=== PATIENT | female | born 1940 | race Caucasian/White ===

== ENCOUNTER → 2017-10-31 10:21 | Outpatient (CLI) | payer MEDICARE, OTHER, SELFPAY ==
--- NOTE | 2017-10-31 10:23 | BI_ITS ---
MAMMOGRAPHY - BILATERAL SCREENING REASON FOR EXAM: Female, 77 years old. Routine annual screening examination. PERTINENT HISTORY: Remote right excisional breast biopsy. Past history of thyroid cancer. TECHNIQUE: Digital bilateral breast audi (3D mammographic acquisition) in the CC and MLO projections. 2-D mediolateral oblique (MLO) and craniocaudad (CC) views of both breasts were obtained. CAD: Full Field Digital Mammography with Computer Added Detection was performed. COMPARISON: Comparison is made with prior examination dated October 22, 2015 and October 14, 2014. FINDINGS: Breast Composition: The breasts are heterogeneously dense, which may obscure small masses. There are no dominant masses or suspicious calcifications. Stable appearance of the 7 mm x 7 mm well-defined nodule in the anterior superior lateral retroareolar region of the left breast. No other significant abnormalities are identified. There has been no significant change since the prior study. BI/SCREENING MAMM (CAD), BILAT IMPRESSION: Stable bilateral screening mammogram. Yearly follow-up mammogram recommended. (A) ASSESSMENT CATEGORY: BIRADS Category 2: Benign. A letter regarding these results will be sent to the patient by the facility within 30 days. Approximately 10% of breast cancers are not detected by mammography. A normal mammogram should not delay biopsy of a clinically suspicious abnormality. [id number] Electronically Signed: Yang Bolden MD at 11:40 EDT Tel [phone], Service support ,
== END ==
PROVIDERS: Family Provider Family Medicine; PCP Family Medicine; Visit Provider Family Medicine
DX: Z12.31 Encounter for screening mammogram for malignant neoplasm of breast (principal); Z85.850 Personal history of malignant neoplasm of thyroid
CPT/HCPCS: 77063; 77067

== ENCOUNTER → 2018-03-29 11:50 | Outpatient (CLI) | payer MEDICARE, OTHER, SELFPAY ==
[2018-03-29 16:12] LABS: Absolute Lymphocyte Count 1.33 X10^3/ul (0.83-4.51); Absolute Neutrophil Count 4.8 X10^3/uL (2.0-7.7); Basophil# 0.03 X10^3/uL; Basophil% 0.4 % (0-1); Eosinophil# 0.04 X10^3/uL; Eosinophils% 0.6 % (0-5); Hematocrit 38.3 % (37-47); Hemoglobin 12.4 g/dl (12.0-15.0); Lymphocyte # 1.33 X10^3/ul (4.0); Lymphocyte % 19.3 % (19-41); Mean Corp Hgb Conc 32.4 g/gl (32-36); Mean Corpuscular Hgb 31.7 pg (27.0-32.0); Mean Platelet Vol. 12.5 fl (6.2-12.0); Monocyte# 0.69 X10^3/uL; Neutrophil # 4.78 X10^3/uL (2.7-7.7); Neutrophil % 69.4 % (47-70); Platelet Count 166 K/mm3 (150-450); RBC Distribution Width CV 12.6 % (11.6-14.6); RBC Distribution Width SD 44.5 fl (35.1-43.9); Red Blood Count 3.91 M/mm3 (4.2-5.4); White Blood Count 6.9 K/mm3 (4.4-11.0)
[2018-03-29 16:22] LABS: AST(SGOT) 18 U/L (15-37); Alanine Aminotransfer ALT/SGPT 19 U/L (13-56); Albumin, Serum 3.7 g/dL (3.2-5.0); Alkaline Phosphatase 57 U/L (45-117); Anion Gap 9 (5-15); BUN 31 mg/dL (7-18); BUN/Creat Ratio 31.5 RATIO (10-20); Calcium,Total 9.1 mg/dL (8.5-10.1); Chloride 106 mmol/L (98-107); Creatinine, Serum 0.98 mg/dL (0.55-1.02); EST Glomerular Filtration Rate 58 mL/min (>60); Est Glom Filt Rate - Afr Amer 71 mL/min (>60); Globulin 3.6 g/dL (2.2-4.2); Glucose 77 mg/dL (74-106); Potassium 4.5 mmol/L (3.5-5.1); Protein, Total 7.3 g/dL (6.4-8.2); Sodium Level 142 mmol/L (136-145); T3 Total - Triiodothyronine 0.76 ng/mL (0.6-1.81); T4 Free Direct 1.37 ng/dL (0.76-1.46); Thyroid Stim Hormone (TSH) 0.19 uIU/mL (0.358-3.74); Vitamin B12 328 pg/mL (211-911)
[2018-03-29 16:24] LABS: POSITIVE COUNT NO; POSITIVE DIFFERENTIAL NO; POSITIVE MORPHOLOGY NO
== END ==
PROVIDERS: Family Provider Family Medicine; PCP Family Medicine; Visit Provider Family Medicine
DX: E03.9 Hypothyroidism, unspecified (principal); E53.8 Deficiency of other specified B group vitamins; R53.83 Other fatigue
CPT/HCPCS: 36415; 80053; 82607; 84439; 84443; 84480; 85025

== ENCOUNTER → 2018-03-30 12:07 | Outpatient (CLI) | payer MEDICARE, OTHER, SELFPAY | PROVIDERS: Family Provider Family Medicine; PCP Family Medicine; Visit Provider Family Medicine | DX: M54.5 Low back pain (principal) | CPT/HCPCS: 72110 ==

== ENCOUNTER → 2018-07-21 14:34 | Outpatient (CLI) | payer MEDICARE, OTHER, SELFPAY ==
[2018-07-21 16:01] LABS: Free T3 2.3 pg/mL (2.18-3.98); T4 Total, Thyroxin 10.2 ug/dL (4.8-13.9); Thyroid Stim Hormone (TSH) 0.76 uIU/mL (0.358-3.74)
== END ==
PROVIDERS: Family Provider Family Medicine; PCP Family Medicine; Visit Provider Family Medicine
DX: E03.9 Hypothyroidism, unspecified (principal)
CPT/HCPCS: 36415; 84436; 84443; 84481

== ENCOUNTER 2018-08-08 20:55 | Inpatient (IN) | payer MEDICARE, OTHER, SELFPAY ==
[2018-08-08 20:56] VITALS: BP 147/90; PULSE 73; RESP 14; TEMP 36.3; O2SAT 96; BMI 21.9
--- NOTE | 2018-08-08 22:16 | CT_ITS ---
STUDY: CT ABDOMEN AND PELVIS WITH CONTRAST REASON FOR EXAM: Female, 77 years old. Abdominal pain and nausea. History of thyroid cancer with thyroidectomy. Hysterectomy. RADIATION DOSAGE (If Supplied By Facility): CTDIvol = ( 11.94 ) mGy, DLP = ( 493.06 ) mGycm TECHNIQUE: Transaxial images were obtained from the dome of the diaphragm to the symphysis pubis without oral contrast. 100ML ml of Isovue 300 contrast was administered. Sagittal and coronal images were reconstructed. Individualized dose optimization techniques were used for this CT. COMPARISON: None. FINDINGS: Lung bases are clear. Visualized heart is normal. The liver is unremarkable. The gallbladder is unremarkable. The spleen and pancreas are unremarkable. The adrenal glands are normal. The kidneys are unremarkable. No stones or hydronephrosis. The aorta is normal in caliber. The IVC is moderately flattened, suggesting hypovolemia. There is good portal and systemic venous opacification, with no demonstrated thrombosis. There is mild free fluid in the abdomen and pelvis. There are multiple loops of mildly distended, fluid-filled small bowel in the mid ileum. There is moderate to marked wall thickening of several loops of the mid to distal ileum with gradual caliber transition identified in these abnormal segments. There is moderate associated mesenteric edema in this region. Differential considerations include: Ischemia, submucosal hemorrhage, infection, and Crohn's disease. There is no evidence of closed loop obstruction. The colon is normal in caliber. The appendix is normal. Stool burden is moderate. Normal appendix. Urinary bladder is unremarkable. Normal abdominal wall. Normal osseous structures. CT/Abdomen/Pelvis W IV Cont ONLY IMPRESSION: Thick-walled mid to distal ileum with low-grade partial obstruction. Differential considerations include ischemia, hemorrhage, and infection. Mild free fluid. Electronically Signed: Angie Mata MD at 0:02 EST Tel , Service support ,
--- NOTE | 2018-08-08 22:47 | ED.VISSUMM ---
- ER Visit Summary Date of Service: 08/08/18 Chief Complaint: Abdominal pain History of Present Illness: The patient is a 77 F who states that 1900 hrs. tonight she developed abdominal pain. She states that indigestion. However it is not reflux into her chest. She describes the pain as more diffuse and wrapping to the sides. She states that she feels very gassy. At one point tonight she had very sweaty and weak with the nausea. Her symptoms seem to improve when she got to the emergency room. She notes that she ate dinner around 1800 hrs. this consisted of roast beef potatoes and carrots. Family had the same. Patient has had thyroidectomy hysterectomy and pelvic floor reconstruction. Physical Examination: Afebrile vital signs are stable Gen: Well-nourished well-developed Head: Normocephalic atraumatic Eyes: Perrl EOMI ENT: TMs clear no rhinorrhea moist mucous membranes Neck: Supple no lymphadenopathy no JVD nontender CVS: Regular rate rhythm no murmurs normal S1-S2 Respiratory: No distress clear to auscultation bilaterally chest nontender Abdomen: Soft tender to palpation mildly diffusely without guarding or rebound nondistended normal bowel sounds no masses Back: Nontender Extremity: Nontender no edema Skin: Normal color no rash Neuro: alert orientated ?3 CN II-XII intact normal strength sensation reflexes gait cerebellar Psych: Normal affect normal mood Test Results: White count is 13. Creatinine 1.28. Lactic acid is 1 CT the abdomen pelvis is very worrisome. There is significant thickening of the ileum with mesenteric edema. Appears to be partial small bowel obstruction. Emergency Department Course and Treatment: An NG tube was placed and the patient received Zosyn and IV fluids. from general surgery and Dr. Sierra from internal medicine were consulted. They will be in the department to evaluate the patient. Plan is admission Impression: 1. Partial small bowel obstruction 2. Mesenteric edema This note was generated with [employer] dictation software. It may contain incorrect words, spelling, and punctuation that were not noted in review of the chart prior to signing ED Disposition - Plan for ED Patient: Chief Complaint: Abd Pain
[2018-08-08 22:50] LABS: Absolute Lymphocyte Count 2.01 X10^3/ul (0.83-4.51); Absolute Neutrophil Count 10.1 X10^3/uL (2.0-7.7); Basophil# 0.04 X10^3/uL; Basophil% 0.3 % (0-1); Eosinophil# 0.09 X10^3/uL; Eosinophils% 0.7 % (0-5); Hematocrit 43.6 % (37-47); Lymphocyte # 2.01 X10^3/ul (4.0); Lymphocyte % 15.5 % (19-41); Mean Corp Hgb Conc 32.1 g/gl (32-36); Mean Corpuscular Hgb 31.4 pg (27.0-32.0); Mean Corpuscular Volume 97.8 fL (81-99); Mean Platelet Vol. 12.7 fl (6.2-12.0); Monocyte# 0.72 X10^3/uL; Monocyte% 5.5 % (0-10); Neutrophil % 77.8 % (47-70); Platelet Count 171 K/mm3 (150-450); RBC Distribution Width CV 13.2 % (11.6-14.6); RBC Distribution Width SD 46.2 fl (35.1-43.9); Red Blood Count 4.46 M/mm3 (4.2-5.4)
[2018-08-08 22:51] LABS: POSITIVE COUNT NO; POSITIVE DIFFERENTIAL NO; POSITIVE MORPHOLOGY NO
[2018-08-08 23:03] LABS: AST(SGOT) 17 U/L (15-37); Alanine Aminotransfer ALT/SGPT 16 U/L (13-56); Albumin, Serum 3.8 g/dL (3.2-5.0); Alkaline Phosphatase 68 U/L (45-117); Anion Gap 8 (5-15); BUN 23 mg/dL (7-18); Chloride 102 mmol/L (98-107); Creatinine, Serum 1.28 mg/dL (0.55-1.02); EST Glomerular Filtration Rate 43 mL/min (>60); Est Glom Filt Rate - Afr Amer 52 mL/min (>60); Estimated Creatinine Clearance 35.55 ml/min; Globulin 3.9 g/dL (2.2-4.2); Glucose 114 mg/dL (74-106); Lipase 110 U/L (73-393); Protein, Total 7.7 g/dL (6.4-8.2); Sodium Level 138 mmol/L (136-145)
[2018-08-08] MEDS: 0.9% Normal Saline 1,000 ML 150 ML IV (23:48)
--- NOTE | 2018-08-09 00:25 | PCM.HP.STD ---
History of Present Illness Date of Admission: 08/09/18 Chief Complaint: Abdominal pain Patient Problem List: Acute Presentation: Partial SBO with Possible Colitis Renal insufficiency Chronic Problem List: Hypertension Anxiety and Depression History of Thyroid CA s/p resection, resulting Hypothyroidism GERD The patient is a 77 y/o F w/ PMHx: History of Thyroid CA s/p resection, HTN, Anxiety and Depression, GERD who presents to the [facility] ED on 08/09/18 with history of onset generalized abdominal discomfort and bloating sensation with noted dull throbbing ache to the bilateral upper quadrant when she points to her abdomen on examination with nausea without emesis with last normal bowel movement the evening prior to presentation. She notes that onset was following intake of dinner which included roast beef and carrots with initial sensation of increased indigestion progressively worsening. Patient rates the discomfort upon initial onset 10 out of 10. In the ED workup included T 98.5, heart rate 85, BP initially 147/90, respiratory rate 14, 96% on room air, CBC with WBC 13, hemoglobin 14, platelet 171 with left shift, CMP with BUN/creatinine 23/1.28, glucose 114, lactic acid 1.0, hepatic profile unremarkable, lipase 110, CT A/P w/ thick-walled mid to distal ileum with low-grade partial obstruction, mild free fluid. In the ED NG tube placed. 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 General surgery consulted and did evaluate the patient while she was in the emergency room. Past Medical History Allergies No Known Allergies Allergy (Verified 08/08/18 20:58) Home Medications: Ambulatory Orders Medication Instructions Recorded Calcium (Elemental) [Os-Ousmane 500] 500 mg PO DAILY@0800 08/16/13 Duloxetine Hcl [Cymbalta] 20 mg PO BID 08/16/13 Levothyroxine [Synthroid] 88 mcg PO DAILY 08/16/13 Lisinopril [Zestril] 20 mg PO BID 08/16/13 Vitamin D 08/16/13 Cetirizine HCl [Zyrtec] 10 mg PO DAILY #14 tablet 09/15/14 Triamcinolone Acetonide [Nasacort 2 spray NASAL DAILY 09/15/14 Aq Nasal [place]] Omeprazole 20 mg PO DAILY 08/08/18 Surgical History: - - Hysterectomy with pelvic floor reconstructive surgery, thyroid resection, cataract surgery. 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 Denies: Chills, Fever, Weight Change HEENT: Denies: Head Aches, Sinus Congestion, Sinus Drainage Cardiovascular: Denies: Chest Pain, Palpitations Respiratory: Denies: Cough, Shortness of breath at rest, Sputum production Gastrointestinal: Reports: Abdominal Pain, Dyspepsia, Nausea. Denies: Vomiting Genitourinary: Denies: Dysuria Musculoskeletal: Denies: Joint Pain, Joint Tenderness Skin: Denies: Rash, Wounds Neurological: Denies: Numbness, Tingling, Focal weakness Psychiatric: Reports: Anxiety, Depression. Denies: Homicidal Ideations, Suicidal Ideations Hematologic/ Lymphatic: Denies: Easy Bruising, Easy Bleeding VTE Information - Inpt Only VTE Present on Admission: No VTE Mechan Device Prophylaxis: SCD's VTE Pharm Prophylaxis ordered?: Yes Subjective: Seated upright in the ED bed, fatigued appearance, initially laying w/ cloth over her eyes. Objective: Physical Examination: General: awake, alert, oriented x 3 and cooperative, seated upright in the ED bed in no apparent distress, fatigued appearance. Skin: normal color, turgor, no icterus, cyanosis. HEENT: AT/NC, EOMI, PERRLA, dry MM, no carotid bruits or JVD noted. Lungs: CTA bilaterally, moderate effort, mild decrease BL bases, no rales, ronchi or wheezing. Heart: Regular rate and rhythm; no gallop, rub audible. Abdomen: soft, mild generalized TTP, no rebound or guarding, hyper pitched BS, mildly to moderately distended, no HSM. Extremities: no cyanosis, clubbing, or edema. Neurological: patient awake, alert, oriented x 3; cognitive function intact; pupils equally reactive to light and accomodation; cranial nerves II-XII grossly normal, moving all 4 extremities, no focal deficits, strength moderately to severely globally decreased secondary to acute presentation. Psychiatric: affect appears fatigued, no acute evidence of depressive or anxiety feelings. - Physical Exam Vital Signs Temp Pulse Resp BP Pulse Ox 97.3 F L 73 14 147/90 H 96 08/08/18 20:56 08/08/18 20:56 08/08/18 20:56 08/08/18 20:56 08/08/18 20:56 Oxygen Delivery Method Room Air Weight: 136 lb Body Mass Index (BMI) 21.9 Laboratory Tests Past 24 Hrs 08/08/18 08/08/18 08/09/18 22:05 22:05 00:17 WBC 13.0 H RBC 4.46 Hgb 14.0 Hct 43.6 MCV 97.8 MCH 31.4 MCHC 32.1 RDW 13.2 RDW Differential 46.2 H Plt Count 171 MPV 12.7 H Immature Gran % (Auto) 0.200 Neut % (Auto) 77.8 H Lymph % (Auto) 15.5 L [place] % (Auto) 5.5 Eos % (Auto) 0.7 Baso % (Auto) 0.3 Absolute Neuts (auto) 10.1 H Absolute Lymphs (auto) 2.01 Total Counted Not Reportable Sodium 138 Potassium 4.0 Chloride 102 Carbon Dioxide 28.0 Anion Gap 8 BUN 23 H Creatinine 1.28 H Estim Creat Clear Calc 35.55 Est GFR (MDRD) Af Amer 52 L Est GFR (MDRD) Non-Af 43 L BUN/Creatinine Ratio 18.0 Glucose 114 H Lactic Acid Pending Calcium 9.0 Total Bilirubin 0.40 AST 17 ALT 16 Alkaline Phosphatase 68 Total Protein 7.7 Albumin 3.8 Globulin 3.9 Albumin/Globulin Ratio 1.0 Lipase 110 Assessment/Plan The patient is a 77 y/o F w/ PMHx: History of Thyroid CA s/p resection, HTN, Anxiety and Depression, GERD who presents to the [facility] ED on 08/09/18 with history of onset generalized abdominal discomfort and bloating sensation with noted dull throbbing ache to the bilateral upper quadrant when she points to her abdomen on examination with nausea without emesis with last normal bowel movement the evening prior to presentation. (1) Abdominal pain, nausea w/ ? Partial SBO w/ possible concurrent Colitis: ED workup included T 98.5, heart rate 85, BP initially 147/90, respiratory rate 14, 96% on room air, CBC with WBC 13, hemoglobin 14, platelet 171 with left shift, CMP with BUN/creatinine 23/1.28, glucose 114, lactic acid 1.0, hepatic profile unremarkable, lipase 110, CT A/P w/ thick-walled mid to distal ileum with low-grade partial obstruction, mild free fluid. Will admit to [facility], maintain on IVFs, continue NGT to suction, strict I&Os, IV pain/anti-emetics PRN, serial KUB as needed to monitor bowel function, PPI IV, maintain NPO on bowel rest. General surgery consulted and following. (2) Renal Insufficiency (Not [place]): Admission BUN/Cr 23/1.28, baseline Cr noted 0.9-1.0, likely secondary to mild to moderate dehydration with acute presentation #1, hydrating, repeat BMP in AM. (3) Hypertension: Holding oral regimen with NG tube status, PRN IV hydralazine in interim. (4) Hypothyroidism: History of thyroid cancer status post resection. Holding home Synthroid regimen secondary to n.p.o. status with NG tube, restart once clinically appropriate. (5) Anxiety and depression: Holding home Cymbalta regimen, restart once clinically appropriate. (6) GERD: IV PPI. (7) DVT prophylaxis: SCDs, heparin. Code Visit Inpatient E&M: 67508 Init Hosp L3
[2018-08-09 00:35] VITALS: PULSE 83; RESP 18
[2018-08-09] MEDS: Lidocaine 4% 5 ML Ampul 2 ML INHALATION (00:35)
[2018-08-09 01:37] VITALS: BP 173/88; PULSE 85; RESP 16; RESP 17; TEMP 36.9; O2SAT 95
--- NOTE | 2018-08-09 01:37 | PCM.CONS.GEN ---
Problem List (1) Enteritis Status: Acute Reason for Consult Date of Consultation: 08/09/18 Reason for Consultation: Abdominal pain History of Present Illness: The patient is a 77 year old F who presented with diffuse abdominal pain. She says that the pain started approximately 7 PM this evening. She says she has been passing a lot of gas and had a bowel movement this evening. She said the pain was in her lower abdomen and it was coming and going. She says it has now improved. She had nausea but no vomiting. The nausea has subsided. Nausea at this time. She says her pain has improved. She has never had any issues like this in the past. She has no history of Crohn's disease or inflammatory bowel disease. She has never had any bloody diarrhea. She has chronic constipation. She is not having any fevers or chills. Past Medical History Allergies No Known Allergies Allergy (Verified 08/08/18 20:58) Home Medications: Ambulatory Orders Medication Instructions Recorded Calcium (Elemental) [Os-Ousmane 500] 500 mg PO DAILY@0800 08/16/13 Duloxetine Hcl [Cymbalta] 20 mg PO BID 08/16/13 Levothyroxine [Synthroid] 88 mcg PO DAILY 08/16/13 Lisinopril [Zestril] 20 mg PO BID 08/16/13 Vitamin D 08/16/13 Cetirizine HCl [Zyrtec] 10 mg PO DAILY #14 tablet 09/15/14 Triamcinolone Acetonide [Nasacort 2 spray NASAL DAILY 09/15/14 Aq Nasal [place]] Omeprazole 20 mg PO DAILY 08/08/18 Surgical History: hysterectomy, - - Pelvic floor reconstruction Smoking Status: Never smoker Alcohol: None - *Family History Maternal History Items: No pertinent history Review of Systems Constitutional: Denies: Anorexia, Fever HEENT: Denies: Difficulty Swallowing Cardiovascular: Denies: Chest Pain Respiratory: Denies: Cough, Shortness of Breath Gastrointestinal: Reports: Abdominal Pain, Constipation. Denies: Diarrhea, Hematemesis, Hematochezia, Nausea, Melena, Vomiting Genitourinary: Denies: Dysuria Skin: Denies: Jaundice Neurological: Denies: Balance problems Psychiatric: Denies: Anxiety Hematologic/ Lymphatic: Denies: Adenopathy Patient Problems: Active and Suspected Problems Enteritis (Acute) - Physical Exam General: Alert, Oriented x3, Cooperative, No apparent distress HEENT: Atraumatic, PERRLA, EOMI, Normocephalic Oral: Moist Mucosa Neck: Supple Lungs: Normal air movement Cardiovascular: Regular rate, Regular Rhythm Abdomen: Soft, Non-Distended, Passing Flatus, Tender - Mild tenderness in the lower abdomen. No guarding or rebound. Extremities: No clubbing Skin: No rashes Musculoskeletal: No Muscle Wasting Neurological: Cranial nerves II-XII grossly intact Psych/Mental Status: Normal Affect, Appropriate Vital Signs Temp Pulse Resp BP Pulse Ox 97.3 F L 83 18 147/90 H 96 08/08/18 20:56 08/09/18 00:35 08/09/18 00:35 08/08/18 20:56 08/08/18 20:56 Oxygen Delivery Method Room Air Weight: 136 lb Body Mass Index (BMI) 21.9 Laboratory Tests Past 24 Hrs 08/08/18 08/08/18 08/09/18 22:05 22:05 00:17 WBC 13.0 H RBC 4.46 Hgb 14.0 Hct 43.6 MCV 97.8 MCH 31.4 MCHC 32.1 RDW 13.2 RDW Differential 46.2 H Plt Count 171 MPV 12.7 H Immature Gran % (Auto) 0.200 Neut % (Auto) 77.8 H Lymph % (Auto) 15.5 L [place] % (Auto) 5.5 Eos % (Auto) 0.7 Baso % (Auto) 0.3 Absolute Neuts (auto) 10.1 H Absolute Lymphs (auto) 2.01 Total Counted Not Reportable Sodium 138 Potassium 4.0 Chloride 102 Carbon Dioxide 28.0 Anion Gap 8 BUN 23 H Creatinine 1.28 H Estim Creat Clear Calc 35.55 Est GFR (MDRD) Af Amer 52 L Est GFR (MDRD) Non-Af 43 L BUN/Creatinine Ratio 18.0 Glucose 114 H Lactic Acid 1.0 Calcium 9.0 Total Bilirubin 0.40 AST 17 ALT 16 Alkaline Phosphatase 68 Total Protein 7.7 Albumin 3.8 Globulin 3.9 Albumin/Globulin Ratio 1.0 Lipase 110 Clinical Impression(s) from Imaging Studies Abdomen/Pelvis CT 08/08/18 22:16 IMPRESSION: Thick-walled mid to distal ileum with low-grade partial obstruction. Differential considerations include ischemia, hemorrhage, and infection. Mild free fluid. Electronically Signed: Angie Mata MD at 0:02 EST Tel , Service support , Assessment/Plan All Active Problems Enteritis (Acute) 77-year-old female with small bowel thickening 1. The patient presents with lower abdominal pain. Her white count is slightly elevated with left shift. Her creatinine is slightly elevated as well. Her lactate is normal. CT scan shows thickening of the small bowel and small bowel mesentery. She does not have history of A. fib or any atherosclerotic disease. She has not been having any bloody diarrhea or any diarrhea to speak of. The patient's vitals are stable at this time and she does not have any peritoneal signs on physical exam. 2. Her CT scan is worrisome but her physical exam does not appear to warrant surgery at this time. At this time her vitals are stable and her lactate is normal. I will recheck labs in the morning. If her physical exam worsens at all I would probably recommend exploratory surgery. At this time I will continue to observe her and give her IV fluids and keep her n.p.o. and start antibiotics. I will check ESR and blood cultures. 3. At this time the differential would include infectious versus ischemic etiology. Inflammatory bowel disease would also be possible. If her clinical picture worsens at all I would have little hesitation to take her to surgery to explore her abdomen. At this time she is not have any peritoneal signs or vital sign changes. Lorne Moser MD Pager: [facility] [address] [place] [address], [address] [place] [address] Office:
--- NOTE | 2018-08-09 01:43 | CON.PCM_ITS ---
Problem List (1) Enteritis Status: Acute Reason for Consult Date of Consultation: 08/09/18 Reason for Consultation: Abdominal pain History of Present Illness: The patient is a 77 year old F who presented with diffuse abdominal pain. She says that the pain started approximately 7 PM this evening. She says she has been passing a lot of gas and had a bowel movement this evening. She said the pain was in her lower abdomen and it was coming and going. She says it has now improved. She had nausea but no vomiting. The nausea has subsided. Nausea at this time. She says her pain has improved. She has never had any issues like this in the past. She has no history of Crohn's disease or inflammatory bowel disease. She has never had any bloody diarrhea. She has chronic constipation. She is not having any fevers or chills. Past Medical History Allergies No Known Allergies Allergy (Verified 08/08/18 20:58) Home Medications: Ambulatory Orders Medication Instructions Recorded Calcium (Elemental) [Os-Ousmane 500] 500 mg PO DAILY@0800 08/16/13 Duloxetine Hcl [Cymbalta] 20 mg PO BID 08/16/13 Levothyroxine [Synthroid] 88 mcg PO DAILY 08/16/13 Lisinopril [Zestril] 20 mg PO BID 08/16/13 Vitamin D 08/16/13 Cetirizine HCl [Zyrtec] 10 mg PO DAILY #14 tablet 09/15/14 Triamcinolone Acetonide [Nasacort 2 spray NASAL DAILY 09/15/14 Aq Nasal [place]] Omeprazole 20 mg PO DAILY 08/08/18 Surgical History: hysterectomy, - - Pelvic floor reconstruction Smoking Status: Never smoker Alcohol: None - *Family History Maternal History Items: No pertinent history Review of Systems Constitutional: Denies: Anorexia, Fever HEENT: Denies: Difficulty Swallowing Cardiovascular: Denies: Chest Pain Respiratory: Denies: Cough, Shortness of Breath Gastrointestinal: Reports: Abdominal Pain, Constipation. Denies: Diarrhea, Hematemesis, Hematochezia, Nausea, Melena, Vomiting Genitourinary: Denies: Dysuria Skin: Denies: Jaundice Neurological: Denies: Balance problems Psychiatric: Denies: Anxiety Hematologic/ Lymphatic: Denies: Adenopathy Patient Problems: Active and Suspected Problems Enteritis (Acute) - Physical Exam General: Alert, Oriented x3, Cooperative, No apparent distress HEENT: Atraumatic, PERRLA, EOMI, Normocephalic Oral: Moist Mucosa Neck: Supple Lungs: Normal air movement Cardiovascular: Regular rate, Regular Rhythm Abdomen: Soft, Non-Distended, Passing Flatus, Tender - Mild tenderness in the lower abdomen. No guarding or rebound. Extremities: No clubbing Skin: No rashes Musculoskeletal: No Muscle Wasting Neurological: Cranial nerves II-XII grossly intact Psych/Mental Status: Normal Affect, Appropriate Vital Signs Temp Pulse Resp BP Pulse Ox 97.3 F L 83 18 147/90 H 96 08/08/18 20:56 08/09/18 00:35 08/09/18 00:35 08/08/18 20:56 08/08/18 20:56 Oxygen Delivery Method Room Air Weight: 136 lb Body Mass Index (BMI) 21.9 Laboratory Tests Past 24 Hrs 08/08/18 08/08/18 08/09/18 22:05 22:05 00:17 WBC 13.0 H RBC 4.46 Hgb 14.0 Hct 43.6 MCV 97.8 MCH 31.4 MCHC 32.1 RDW 13.2 RDW Differential 46.2 H Plt Count 171 MPV 12.7 H Immature Gran % (Auto) 0.200 Neut % (Auto) 77.8 H Lymph % (Auto) 15.5 L [place] % (Auto) 5.5 Eos % (Auto) 0.7 Baso % (Auto) 0.3 Absolute Neuts (auto) 10.1 H Absolute Lymphs (auto) 2.01 Total Counted Not Reportable Sodium 138 Potassium 4.0 Chloride 102 Carbon Dioxide 28.0 Anion Gap 8 BUN 23 H Creatinine 1.28 H Estim Creat Clear Calc 35.55 Est GFR (MDRD) Af Amer 52 L Est GFR (MDRD) Non-Af 43 L BUN/Creatinine Ratio 18.0 Glucose 114 H Lactic Acid 1.0 Calcium 9.0 Total Bilirubin 0.40 AST 17 ALT 16 Alkaline Phosphatase 68 Total Protein 7.7 Albumin 3.8 Globulin 3.9 Albumin/Globulin Ratio 1.0 Lipase 110 Clinical Impression(s) from Imaging Studies Abdomen/Pelvis CT 08/08/18 22:16 IMPRESSION: Thick-walled mid to distal ileum with low-grade partial obstruction. Differential considerations include ischemia, hemorrhage, and infection. Mild free fluid. Electronically Signed: Angie Mata MD at 0:02 EST Tel , Service support , Assessment/Plan All Active Problems Enteritis (Acute) 77-year-old female with small bowel thickening 1. The patient presents with lower abdominal pain. Her white count is slightly elevated with left shift. Her creatinine is slightly elevated as well. Her lactate is normal. CT scan shows thickening of the small bowel and small bowel mesentery. She does not have history of A. fib or any atherosclerotic disease. She has not been having any bloody diarrhea or any diarrhea to speak of. The patient's vitals are stable at this time and she does not have any peritoneal signs on physical exam. 2. Her CT scan is worrisome but her physical exam does not appear to warrant surgery at this time. At this time her vitals are stable and her lactate is normal. I will recheck labs in the morning. If her physical exam worsens at all I would probably recommend exploratory surgery. At this time I will continue to observe her and give her IV fluids and keep her n.p.o. and start antibiotics. I will check ESR and blood cultures. 3. At this time the differential would include infectious versus ischemic etiology. Inflammatory bowel disease would also be possible. If her clinical picture worsens at all I would have little hesitation to take her to surgery to explore her abdomen. At this time she is not have any peritoneal signs or vital sign changes. Lorne Moser MD Pager: [facility] [address] [place] [address], [address] [place] [address] Office:
[2018-08-09 01:57] VITALS: BP 137/86; PULSE 75; RESP 16; TEMP 36.7; O2SAT 97; BMI 21.3
--- NOTE | 2018-08-09 03:26 | NURSING ---
Conferred with Cristal in ER. She confirmed that Dr. Moser advised them that this pt did not need an NG tube so they did not place one. Carmine COLUNGA aware. Will advise Dr. Sierra when she calls.
[2018-08-09] MEDS: 0.9% Normal Saline 1,000 ML 100 ML IV ×3 (03:47→21:54)
[2018-08-09 03:52] LABS: Magnesium 2.2 mg/dL (1.6-2.6)
[2018-08-09 03:53] LABS: Absolute Lymphocyte Count 1.11 X10^3/ul (0.83-4.51); Absolute Neutrophil Count 8.7 X10^3/uL (2.0-7.7); Basophil# 0.02 X10^3/uL; Basophil% 0.2 % (0-1); Eosinophil# 0.01 X10^3/uL; Eosinophils% 0.1 % (0-5); Hematocrit 40.3 % (37-47); Lymphocyte # 1.11 X10^3/ul (4.0); Lymphocyte % 10.8 % (19-41); Mean Corp Hgb Conc 32.3 g/gl (32-36); Mean Corpuscular Hgb 31.2 pg (27.0-32.0); Mean Corpuscular Volume 96.6 fL (81-99); Mean Platelet Vol. 12.1 fl (6.2-12.0); Monocyte# 0.39 X10^3/uL; Monocyte% 3.8 % (0-10); Neutrophil # 8.71 X10^3/uL (2.7-7.7); Neutrophil % 84.9 % (47-70); Platelet Count 170 K/mm3 (150-450); RBC Distribution Width CV 13.2 % (11.6-14.6); RBC Distribution Width SD 45.1 fl (35.1-43.9); Red Blood Count 4.17 M/mm3 (4.2-5.4); White Blood Count 10.3 K/mm3 (4.4-11.0)
[2018-08-09 03:55] LABS: POSITIVE COUNT NO; POSITIVE DIFFERENTIAL NO; POSITIVE MORPHOLOGY NO
[2018-08-09 04:00] LABS: Erythrocyte Sedimentation Rate 21 mm/hr (0-30)
[2018-08-09 04:07] LABS: Anion Gap 9 (5-15); BUN 24 mg/dL (7-18); BUN/Creat Ratio 20.9 RATIO (10-20); Calcium,Total 8.9 mg/dL (8.5-10.1); Chloride 105 mmol/L (98-107); Creatinine, Serum 1.15 mg/dL (0.55-1.02); EST Glomerular Filtration Rate 49 mL/min (>60); Est Glom Filt Rate - Afr Amer 59 mL/min (>60); Estimated Creatinine Clearance 39.57 ml/min; Glucose 123 mg/dL (74-106); Potassium 4.2 mmol/L (3.5-5.1); Sodium Level 140 mmol/L (136-145)
[2018-08-09] MEDS: Piperacil/Tazobactam 3.375 GM/50 ML ML IV ×3 (05:28→21:48)
--- NOTE | 2018-08-09 05:55 | RAD_ITS ---
STUDY: X-RAY - ABDOMEN/PELVIS REASON FOR EXAM: Female, 77 years old. Small bowel obstruction TECHNIQUE: Frontal view COMPARISON: None. FINDINGS: Normal visualized lung bases. There is an unremarkable bowel gas pattern. There is no demonstrated free abdominal air. The visualized liver, spleen and kidneys are grossly normal in size and morphology. There is contrast in the urinary bladder. Normal visualized osseous structures. RAD/Abdomen Single View (Portable) IMPRESSION: There is NO bowel obstruction, fecal impaction, bowel wall thickening or free air. Electronically Signed: Julien Fragoso MD at 7:11 EST , Service support ,
--- NOTE | 2018-08-09 07:28 | PCM.PN.HOSP ---
Patient Problems: Active and Suspected Problems Enteritis (Acute) Subjective: 77-year-old lady admitted with nausea vomiting and abdominal pain. CT of the abdomen obtained on admission demonstrated Thick-walled mid to distal ileum with low-grade partial obstruction patient has been admitted to regular nursing floor with consultation placed to general surgery Objective: GENERAL: cooperative HEENT: Atraumatic; moist oral mucosa EYES; Anicteric, Normal Conjunctiva NECK; supple, normal thyroid, no distended JVD. RESPIRATORY: Diminished to auscultation bilaterally, CARDIOVASCULAR: Regular S1 S2, no audible murmurs GI: soft, non-tender, normoactive bowel sounds, : No Renal angle tenderness; EXTREMITIES: No edema, no clubbing, no cyanosis. MUSCULOSKELETAL: No Joint Tenderness; no muscle waisting NEURO: Awake; no lateralizing signs. SKIN: No Rash PSYCH; Normal affect Vitals/I&O's: Vital Signs Temp Pulse Resp BP Pulse Ox 98.1 F 75 16 137/86 H 97 08/09/18 01:57 08/09/18 01:57 08/09/18 01:57 08/09/18 01:57 08/09/18 01:57 Oxygen Delivery Method Room Air Weight: 59.931 kg Body Mass Index (BMI) 21.3 Intake and Output for Last 24 Hours 08/07/18 08/08/18 08/09/18 23:59 23:59 23:59 Intake Total 758 / 758 Balance 758 / 758 Laboratory Results 08/08/18 22:05: WBC 13.0 H, RBC 4.46, Hgb 14.0, Hct 43.6, MCV 97.8, MCH 31.4, MCHC 32.1, RDW 13.2, RDW Differential 46.2 H, Plt Count 171, MPV 12.7 H, Immature Gran % (Auto) 0.200, Neut % (Auto) 77.8 H, Lymph % (Auto) 15.5 L, [place] % (Auto) 5.5, Eos % (Auto) 0.7, Baso % (Auto) 0.3, Absolute Neuts (auto) 10.1 H, Absolute Lymphs (auto) 2.01, Total Counted Not Reportable 08/08/18 22:05: Sodium 138, Potassium 4.0, Chloride 102, Carbon Dioxide 28.0, Anion Gap 8, BUN 23 H, Creatinine 1.28 H, Estim Creat Clear Calc 35.55, Est GFR (MDRD) Af Amer 52 L, Est GFR (MDRD) Non-Af 43 L, BUN/Creatinine Ratio 18.0, Glucose 114 H, Calcium 9.0, Total Bilirubin 0.40, AST 17, ALT 16, Alkaline Phosphatase 68, Total Protein 7.7, Albumin 3.8, Globulin 3.9, Albumin/Globulin Ratio 1.0, Lipase 110 08/09/18 00:17: Lactic Acid 1.0 08/09/18 03:24: Magnesium 2.2 08/09/18 03:24: WBC 10.3, RBC 4.17 L, Hgb 13.0, Hct 40.3, MCV 96.6, MCH 31.2, MCHC 32.3, RDW 13.2, RDW Differential 45.1 H, Plt Count 170, MPV 12.1 H, Immature Gran % (Auto) 0.200, Neut % (Auto) 84.9 H, Lymph % (Auto) 10.8 L, [place] % (Auto) 3.8, Eos % (Auto) 0.1, Baso % (Auto) 0.2, Absolute Neuts (auto) 8.7 H, Absolute Lymphs (auto) 1.11, Total Counted Not Reportable, ESR 21 08/09/18 03:24: Sodium 140, Potassium 4.2, Chloride 105, Carbon Dioxide 26.0, Anion Gap 9, BUN 24 H, Creatinine 1.15 H, Estim Creat Clear Calc 39.57, Est GFR (MDRD) Af Amer 59 L, Est GFR (MDRD) Non-Af 49 L, BUN/Creatinine Ratio 20.9 H, Glucose 123 H, Calcium 8.9 Current Medications Calcium Carbonate (Os-Ousmane 500) 500 mg PO DAILY@0800 [facility] Duloxetine HCl (Cymbalta) 40 mg PO QHS [facility] Heparin Sodium (Porcine) (Heparin Na) 5,000 unit SC Q12 [facility] Hydralazine HCl (Apresoline Iv) 10 mg IV Q4H PRN PRN PRN Reason: SBP > 160 Sodium Chloride () 1,000 mls @ 100 mls/hr IV .Q10H [facility] Last Admin: 08/09/18 03:47 Dose: 100 mls/hr Pantoprazole Sodium 40 mg/ (Sodium Chloride) 110 mls @ 330 mls/hr IV Q12 [facility] Last Admin: 08/09/18 04:56 Dose: 330 mls/hr Piperacillin Sod/Tazobactam Sod (Zosyn) 3.375 gm in 50 mls @ 12.5 mls/hr IV Q8 [facility] Last Admin: 08/09/18 05:28 Dose: 12.5 mls/hr Levothyroxine Sodium (Synthroid) 88 mcg PO DAILY@0600 [facility] Lisinopril (Zestril) 20 mg PO BID [facility] Magnesium Hydroxide (Milk Of Magnesia) 30 ml PO DAILY PRN PRN PRN Reason: Constipation Morphine Sulfate () 2 - 4 mg IV Q3H PRN PRN PRN Reason: PAIN Morphine Sulfate () 2 - 4 mg IV Q3H PRN PRN PRN Reason: PAIN Nutritional Formula (Lactose Free) (Ensure Enlive) 120 ml PO 4X/DAY [facility] Ondansetron HCl (Zofran) 4 mg IV Q8H PRN PRN PRN Reason: NAUSEA Sodium Chloride () 5 - 15 ml IV UD PRN PRN Reason: SALINE FLUSH Medical Necessity - Tobacco Use Smoking Status: Never smoker Tobacco Use: Non-smoker Assessment/Plan All Active Problems Enteritis (Acute) 77-year-old lady admitted with nausea vomiting and abdominal pain. CT of the abdomen obtained on admission demonstrated Thick-walled mid to distal ileum with low-grade partial obstruction patient has been admitted to regular nursing floor with consultation placed to general surgery 1. Partial small bowel obstruction suspected to be secondary to ileitis. Patient managed conservatively seen by general surgery Dr. Moser who recommended initiation of clear liquids 2. Acute kidney injury on IV fluids with monitoring of electrolyte 3. Hypothyroidism-patient is on levothyroxine home dose continued 4. History of thyroid cancer status post resection resulting in iatrogenic hypothyroidism 5. Depression with anxiety 6. Essential hypertension-blood pressure controlled, home medications continued with dose adjustment as needed 7. GERD on PPI 8. DVT prophylaxis SC heparin Advance planning; did discuss with the patient and family regarding her advanced directives as well as CODE STATUS. Did explain the various modalities involved ( FULL CODE, DNR CCA, DNR CCA with no intubation, and DNR CC ) wishes to remain full code. Order was placed. Time spent on discussion 18 minutes. Active Medications Calcium Carbonate (Os-Ousmane 500) 500 mg PO DAILY@0800 [facility] Last Admin: 08/09/18 09:34 Dose: Not Given Duloxetine HCl (Cymbalta) 40 mg PO QHS [facility] Heparin Sodium (Porcine) (Heparin Na) 5,000 unit SC Q12 [facility] Hydralazine HCl (Apresoline Iv) 10 mg IV Q4H PRN PRN PRN Reason: SBP > 160 Sodium Chloride () 1,000 mls @ 100 mls/hr IV .Q10H [facility] Last Admin: 08/09/18 03:47 Dose: 100 mls/hr Pantoprazole Sodium 40 mg/ (Sodium Chloride) 110 mls @ 330 mls/hr IV Q12 [facility] Last Admin: 08/09/18 04:56 Dose: 330 mls/hr Piperacillin Sod/Tazobactam Sod (Zosyn) 3.375 gm in 50 mls @ 12.5 mls/hr IV Q8 [facility] Last Admin: 08/09/18 05:28 Dose: 12.5 mls/hr Levothyroxine Sodium (Synthroid) 88 mcg PO DAILY@0600 [facility] Last Admin: 08/09/18 09:34 Dose: Not Given Lisinopril (Zestril) 20 mg PO BID [facility] Loratadine (Claritin) 10 mg PO DAILY [facility] Magnesium Hydroxide (Milk Of Magnesia) 30 ml PO DAILY PRN PRN PRN Reason: Constipation Morphine Sulfate () 2 - 4 mg IV Q3H PRN PRN PRN Reason: PAIN Morphine Sulfate () 2 - 4 mg IV Q3H PRN PRN PRN Reason: PAIN Nutritional Formula (Lactose Free) (Ensure Enlive) 120 ml PO 4X/DAY [facility] Last Admin: 08/09/18 09:35 Dose: Not Given Ondansetron HCl (Zofran) 4 mg IV Q8H PRN PRN PRN Reason: NAUSEA Sodium Chloride () 5 - 15 ml IV UD PRN PRN Reason: SALINE FLUSH Triamcinolone Acetonide (Nasacort Aq Nasal [place]) 2 spray NASAL DAILY [facility] Clinical Impression(s) from Imaging Studies Abdomen/Pelvis CT 08/08/18 22:16 IMPRESSION: Thick-walled mid to distal ileum with low-grade partial obstruction. Differential considerations include ischemia, hemorrhage, and infection. Mild free fluid. Electronically Signed: Angie Mata MD at 0:02 EST Tel , Service support , KUB X-Ray 08/09/18 05:55 IMPRESSION: There is NO bowel obstruction, fecal impaction, bowel wall thickening or free air. Electronically Signed: Julien Fragoso MD at 7:11 EST , Service support , Code Visit Inpatient E&M: 06359 Subs Hosp L3 Procedures: 43481 Advncd Care Plan 30 Min
[2018-08-09 07:45] VITALS: BP 112/65; PULSE 72; RESP 16; TEMP 36.8; O2SAT 97
--- NOTE | 2018-08-09 07:53 | PN.SURG_ITS ---
Patient Problems: Active and Suspected Problems Enteritis (Acute) Subjective: The patient reports that her pain is improved. She is not having any nausea or vomiting this morning. She only complains of mild soreness. - Physical Exam General: Alert, Oriented x3, Cooperative Neck: No JVD Lungs: Normal air movement Cardiovascular: Regular rate, Regular Rhythm Abdomen: Soft, Non-Distended, Tender - Mild tenderness to deep palpation in the right lower quadrant. No guarding or rebound. Skin: No rashes Musculoskeletal: No Muscle Wasting Neurological: Cranial nerves II-XII grossly intact Psych/Mental Status: Normal Affect Vital Signs Temp Pulse Resp BP Pulse Ox 98.1 F 75 16 137/86 H 97 08/09/18 01:57 08/09/18 01:57 08/09/18 01:57 08/09/18 01:57 08/09/18 01:57 Oxygen Delivery Method Room Air Weight: 132 lb 2 oz Body Mass Index (BMI) 21.3 Intake and Output for Last 24 Hours 08/07/18 08/08/18 08/09/18 23:59 23:59 23:59 Intake Total 758 / 758 Balance 758 / 758 Laboratory Tests Past 24 Hrs 08/08/18 08/08/18 08/09/18 22:05 22:05 00:17 WBC 13.0 H RBC 4.46 Hgb 14.0 Hct 43.6 MCV 97.8 MCH 31.4 MCHC 32.1 RDW 13.2 RDW Differential 46.2 H Plt Count 171 MPV 12.7 H Immature Gran % (Auto) 0.200 Neut % (Auto) 77.8 H Lymph % (Auto) 15.5 L [place] % (Auto) 5.5 Eos % (Auto) 0.7 Baso % (Auto) 0.3 Absolute Neuts (auto) 10.1 H Absolute Lymphs (auto) 2.01 Total Counted Not Reportable ESR Sodium 138 Potassium 4.0 Chloride 102 Carbon Dioxide 28.0 Anion Gap 8 BUN 23 H Creatinine 1.28 H Estim Creat Clear Calc 35.55 Est GFR (MDRD) Af Amer 52 L Est GFR (MDRD) Non-Af 43 L BUN/Creatinine Ratio 18.0 Glucose 114 H Lactic Acid 1.0 Calcium 9.0 Magnesium Total Bilirubin 0.40 AST 17 ALT 16 Alkaline Phosphatase 68 Total Protein 7.7 Albumin 3.8 Globulin 3.9 Albumin/Globulin Ratio 1.0 Lipase 110 08/09/18 08/09/18 08/09/18 03:24 03:24 03:24 WBC 10.3 RBC 4.17 L Hgb 13.0 Hct 40.3 MCV 96.6 MCH 31.2 MCHC 32.3 RDW 13.2 RDW Differential 45.1 H Plt Count 170 MPV 12.1 H Immature Gran % (Auto) 0.200 Neut % (Auto) 84.9 H Lymph % (Auto) 10.8 L [place] % (Auto) 3.8 Eos % (Auto) 0.1 Baso % (Auto) 0.2 Absolute Neuts (auto) 8.7 H Absolute Lymphs (auto) 1.11 Total Counted Not Reportable ESR 21 Sodium 140 Potassium 4.2 Chloride 105 Carbon Dioxide 26.0 Anion Gap 9 BUN 24 H Creatinine 1.15 H Estim Creat Clear Calc 39.57 Est GFR (MDRD) Af Amer 59 L Est GFR (MDRD) Non-Af 49 L BUN/Creatinine Ratio 20.9 H Glucose 123 H Lactic Acid Calcium 8.9 Magnesium 2.2 Total Bilirubin AST ALT Alkaline Phosphatase Total Protein Albumin Globulin Albumin/Globulin Ratio Lipase Clinical Impression(s) from Imaging Studies Abdomen/Pelvis CT 08/08/18 22:16 IMPRESSION: Thick-walled mid to distal ileum with low-grade partial obstruction. Differential considerations include ischemia, hemorrhage, and infection. Mild free fluid. Electronically Signed: Angie Mata MD at 0:02 EST Tel , Service support , KUB X-Ray 08/09/18 05:55 IMPRESSION: There is NO bowel obstruction, fecal impaction, bowel wall thickening or free air. Electronically Signed: Julien Fragoso MD at 7:11 EST , Service support , Medical Necessity - Tobacco Use Smoking Status: Never smoker Tobacco Use: Non-smoker Assessment/Plan All Active Problems Enteritis (Acute) 77-year-old female with thickened small bowel on CAT scan 1. The patient's white count has improved today but her left shift has increased. Her ESR is normal making this unlikely that it is Crohn's disease. Her pain has improved but due to the severity of the bowel thickening on CT I would like to give her another day of bowel rest and IV fluids. Continue n.p.o. with sips and chips and IV fluid. Creatinine has slightly improved but it is still mildly elevated. It was normal in March of this year. 2. Continue to observe. If her clinical picture worsens she will be taken to the OR for exploratory laparoscopy. Lorne Moser MD Pager: [facility] [address] [place] [address], [address] [place] [address] Office:
--- NOTE | 2018-08-09 11:40 | CASEMGMT ---
KEANU CABALLERO Face to Face with patient for initial transition planning/care coordination assessment. RN CM introduced self and role at [facility]. Patient lying in bed, alert and oriented. Patient willing to participate in assessment and is able to answer all questions appropriately. Care providers, pharmacy, and demographics verified. Patient wishes to discharge home, denies need for home health at this time. Patient states she has no further needs or concerns at this time. CM to follow for discharge planning needs that may arise. PCP: Milla Specialists: MARY Pelayo; EDSON Irving Preferred Pharmacy: [facility] Insurance: [facility] Prescription Benefit: [employer] Living Will/HPOA: No LNOK: Living Arrangements: Patient lives with in 1 story home. Patient is independent at home. Transportation: Self/ DME/HHC: Declined need for DME Disposition Plan: Patient to discharge home with family support and follow-up plans in place. Courtney OBANDO, RN, CM
[2018-08-09] MEDS: Levothyroxine 88 MCG Tablet PO (12:11)
[2018-08-09] MEDS: Heparin Injection (Vial) 5,000 UNIT/ML VIAL 5000 UNIT SC ×2 (12:12→21:49)
[2018-08-09] MEDS: Lisinopril 20 MG Tablet PO ×2 (12:55→21:49)
[2018-08-09 14:40] VITALS: BP 122/75; PULSE 74; RESP 14; TEMP 36.7; O2SAT 96
[2018-08-09] MEDS: Acetaminophen 325 MG Tablet 650 MG PO (18:29)
[2018-08-09 20:38] VITALS: BP 101/55; PULSE 74; RESP 16; TEMP 37.2; O2SAT 97
[2018-08-09] MEDS: DULoxetine Hcl 20 MG Capsule 40 MG PO (21:49)
[2018-08-10] MEDS: Acetaminophen 325 MG Tablet 650 MG PO (00:39)
[2018-08-10 02:17] VITALS: BP 121/71; PULSE 78; RESP 16; TEMP 36.8; O2SAT 96
[2018-08-10] MEDS: Levothyroxine 88 MCG Tablet PO (05:47)
[2018-08-10] MEDS: Piperacil/Tazobactam 3.375 GM/50 ML ML IV (05:48)
[2018-08-10 06:09] LABS: Hematocrit 34.6 % (37-47); Mean Corp Hgb Conc 31.8 g/gl (32-36); Mean Corpuscular Volume 97.5 fL (81-99); Mean Platelet Vol. 11.6 fl (6.2-12.0); Platelet Count 155 K/mm3 (150-450); RBC Distribution Width CV 13.5 % (11.6-14.6); RBC Distribution Width SD 48.2 fl (35.1-43.9); Red Blood Count 3.55 M/mm3 (4.2-5.4); White Blood Count 4.5 K/mm3 (4.4-11.0)
[2018-08-10 06:13] LABS: Scan Indicated on CBC? Y/N NO
[2018-08-10 06:26] LABS: Anion Gap 8 (5-15); BUN 12 mg/dL (7-18); BUN/Creat Ratio 12.8 RATIO (10-20); Calcium,Total 7.9 mg/dL (8.5-10.1); Chloride 110 mmol/L (98-107); Creatinine, Serum 0.94 mg/dL (0.55-1.02); EST Glomerular Filtration Rate 62 mL/min (>60); Est Glom Filt Rate - Afr Amer 74 mL/min (>60); Estimated Creatinine Clearance 48.41 ml/min; Glucose 76 mg/dL (74-106); Magnesium 2.2 mg/dL (1.6-2.6); Potassium 3.9 mmol/L (3.5-5.1); Sodium Level 143 mmol/L (136-145)
--- NOTE | 2018-08-10 07:10 | PN.SURG_ITS ---
Patient Problems: Active and Suspected Problems Enteritis (Acute) Subjective: Patient does not describe any abdominal pain this morning. She continues to pass flatus. She is not having any nausea or vomiting. - Physical Exam General: Alert, Oriented x3, Cooperative Cardiovascular: Regular rate, Regular Rhythm Abdomen: Soft, Non Tender, Non-Distended Vital Signs Temp Pulse Resp BP Pulse Ox 98.2 F 78 16 121/71 H 96 08/10/18 02:17 08/10/18 02:17 08/10/18 02:17 08/10/18 02:08/10/18 02:17 Oxygen Delivery Method Room Air Weight: 132 lb 2.004 oz Body Mass Index (BMI) 21.3 Intake and Output for Last 24 Hours 08/08/18 08/09/18 08/10/18 23:59 23:59 23:59 Intake Total 1312 / 1312 2162 / 2162 Balance 1312 / 1312 2162 / 2162 Laboratory Tests Past 24 Hrs 08/10/18 08/10/18 05:50 05:50 WBC 4.5 RBC 3.55 L Hgb 11.0 L Hct 34.6 L MCV 97.5 MCH 31.0 MCHC 31.8 L RDW 13.5 RDW Differential 48.2 H Plt Count 155 MPV 11.6 Sodium 143 Potassium 3.9 Chloride 110 H Carbon Dioxide 25.0 Anion Gap 8 BUN 12 Creatinine 0.94 Estim Creat Clear Calc 48.41 Est GFR (MDRD) Af Amer 74 Est GFR (MDRD) Non-Af 62 BUN/Creatinine Ratio 12.8 Glucose 76 Calcium 7.9 L Magnesium 2.2 Medical Necessity - Tobacco Use Smoking Status: Never smoker Tobacco Use: Non-smoker Assessment/Plan All Active Problems Enteritis (Acute) 77-year-old female with enteritis 1. The patient describes no pain today and she is passing flatus as usual. I will advance her diet to clears and she can advance as tolerated. I advised her that if her pain increases with diet that she should back down to n.p.o. and we continue to give her bowel rest. 2. White count is normal. Antibiotics can likely be stopped. 3. I am still unsure as to the cause of her enteritis. Her ESR was normal which makes Crohn's unlikely. Her creatinine is returning to normal it is possible this was a small amount of ischemia but also unlikely. This may be viral in nature. If she is discharged today she can follow-up with me in a week to make sure she is still doing well. Lorne Moser MD Pager: [facility] [address] [place] [address], [address] [place] [address] Office:
[2018-08-10 07:15] VITALS: BP 144/75; PULSE 71; RESP 16; TEMP 36.8; O2SAT 94
[2018-08-10 07:30] VITALS: O2SAT 96
[2018-08-10] MEDS: 0.9% Normal Saline 1,000 ML 100 ML IV (08:29)
[2018-08-10] MEDS: Lisinopril 20 MG Tablet PO (08:30)
[2018-08-10] MEDS: Heparin Injection (Vial) 5,000 UNIT/ML VIAL 5000 UNIT SC (10:22)
--- NOTE | 2018-08-10 11:09 | PCM.DC ---
- Discharge Diagnoses Current Active Problems: Current Active and Chronic Problems Enteritis (Acute) You will use the following diet at home:: No restrictions, Full liquid Your food should be the consistency of: Soft (bite-sized & easy to chew/swallow) Allergies/Adverse Reactions: Allergies No Known Allergies Allergy (Verified 08/08/18 20:58) Medications to take at Discharge Calcium (Elemental) [Os-Ousmane 500] 500 mg PO DAILY@0800 08/16/13 Duloxetine Hcl [Cymbalta] 40 mg PO QHS 08/16/13 Levothyroxine [Synthroid] 88 mcg PO DAILY 08/16/13 Lisinopril [Zestril] 20 mg PO BID 08/16/13 Vitamin D 08/16/13 Triamcinolone Acetonide [Nasacort Aq Nasal [place]] 2 spray NASAL DAILY 09/15/14 Omeprazole 20 mg PO DAILY 08/08/18 Primary Care Physician: Antonella Loyola DO [Primary Care Provider] - Please follow up with your Primary Care Physician in: in 5-7 days Test Results: Test results from this visit will be discussed in further detail at your follow-up appointment, if applicable. Please Follow Up With: Lorne Moser MD Proposed Discharge Date: 08/10/18
--- NOTE | 2018-08-10 11:13 | DS.PCM_ITS ---
Discharge Date and Diagnosis - Problem List Patient Problems: Active and Suspected Problems Enteritis (Acute) Date of Admission: 08/09/18 Date of Discharge: 08/10/18 - Primary Discharge Diagnosis Active and Suspected Problems Enteritis (Acute) Hospital Course and Treatment Imaging Results: Clinical Impression(s) from Imaging Studies Abdomen/Pelvis CT 08/08/18 22:16 IMPRESSION: Thick-walled mid to distal ileum with low-grade partial obstruction. Differential considerations include ischemia, hemorrhage, and infection. Mild free fluid. Electronically Signed: Angie Mata MD at 0:02 EST Tel , Service support , KUB X-Ray 08/09/18 05:55 IMPRESSION: There is NO bowel obstruction, fecal impaction, bowel wall thickening or free air. Electronically Signed: Julien Fragoso MD at 7:11 EST , Service support , Summary of Care Provided: 77-year-old lady admitted with nausea vomiting and abdominal pain. CT of the abdomen obtained on admission demonstrated Thick-walled mid to distal ileum with low-grade partial obstruction patient has been admitted to regular nursing floor with consultation placed to general surgery 1. Partial small bowel obstruction suspected to be secondary to ileitis. Patient managed conservatively seen by general surgery Dr. Moser who recommended initiation of clear liquids. Patient condition did improve with conservative management discharged 2 days after her hospital stay. She was instructed to follow-up with Dr. Moser as outpatient within 1-2 weeks 2. Acute kidney injury on IV fluids with monitoring of electrolyte kidney function was back to baseline at the time of discharge 3. Hypothyroidism-patient is on levothyroxine home dose continued 4. History of thyroid cancer status post resection resulting in iatrogenic hypothyroidism 5. Depression with anxiety 6. Essential hypertension-blood pressure controlled, home medications continued with dose adjustment as needed 7. GERD on PPI 8. DVT prophylaxis SC heparin Patient Problems: Active and Suspected Problems Enteritis (Acute) Objective: GENERAL: cooperative HEENT: Atraumatic; moist oral mucosa EYES; Anicteric, Normal Conjunctiva NECK; supple, normal thyroid, no distended JVD. RESPIRATORY: Diminished to auscultation bilaterally, CARDIOVASCULAR: Regular S1 S2, no audible murmurs GI: soft, non-tender, normoactive bowel sounds, : No Renal angle tenderness; EXTREMITIES: No edema, no clubbing, no cyanosis. MUSCULOSKELETAL: No Joint Tenderness; no muscle waisting NEURO: Awake; no lateralizing signs. SKIN: No Rash PSYCH; Normal affect - Physical Exam Vital Signs Temp Pulse Resp BP Pulse Ox 98.2 F 71 16 144/75 H 96 08/10/18 07:15 08/10/18 07:15 08/10/18 07:15 08/10/18 07:15 08/10/18 07:30 Oxygen Delivery Method Room Air Weight: 59.931 kg Body Mass Index (BMI) 21.3 Intake and Output for Last 24 Hours 08/08/18 08/09/18 08/10/18 23:59 23:59 23:59 Intake Total 1312 / 1312 2162 / 2162 Balance 1312 / 1312 2162 / 2162 Laboratory Tests Past 24 Hrs 08/10/18 08/10/18 05:50 05:50 WBC 4.5 RBC 3.55 L Hgb 11.0 L Hct 34.6 L MCV 97.5 MCH 31.0 MCHC 31.8 L RDW 13.5 RDW Differential 48.2 H Plt Count 155 MPV 11.6 Sodium 143 Potassium 3.9 Chloride 110 H Carbon Dioxide 25.0 Anion Gap 8 BUN 12 Creatinine 0.94 Estim Creat Clear Calc 48.41 Est GFR (MDRD) Af Amer 74 Est GFR (MDRD) Non-Af 62 BUN/Creatinine Ratio 12.8 Glucose 76 Calcium 7.9 L Magnesium 2.2 Discharge Diet: Light diet - advance as tolerated Home Medications: Medications to take at Discharge Calcium (Elemental) [Os-Ousmane 500] 500 mg PO DAILY@0800 08/16/13 Duloxetine Hcl [Cymbalta] 40 mg PO QHS 08/16/13 Levothyroxine [Synthroid] 88 mcg PO DAILY 08/16/13 Lisinopril [Zestril] 20 mg PO BID 08/16/13 Vitamin D 08/16/13 Triamcinolone Acetonide [Nasacort Aq Nasal [place]] 2 spray NASAL DAILY 09/15/14 Omeprazole 20 mg PO DAILY 08/08/18 Primary Care Physician: Antonella Loyola DO [Primary Care Provider] - Please follow up with your Primary Care Physician in: in 5-7 days Please Follow Up With: Lorne Moser MD Disposition: Home Minutes spent on discharge:: 45 Patient Condition:: Stable Medical Necessity - Tobacco Use Smoking Status: Never smoker Tobacco Use: Non-smoker Meaningful Use Info Meaningful Use Diagnoses (Choose all that apply): None applicable Code Visit Inpatient E&M: 39848 Disch Hosp
[2018-08-10 13:30] VITALS: BP 124/55; PULSE 92; RESP 16; TEMP 36.8; O2SAT 97
== END 2018-08-10 13:50 | disposition home or self-care (01) | DRG 389 ==
LOC: ED 22:04 → MS3 08-09 00:51
PROVIDERS: Surgery; Admitting Provider Family Medicine; Emergency Provider Emergency Medicine; Family Provider Family Medicine; PCP Family Medicine; Visit Provider Internal Medicine
DX: K56.690 Other partial intestinal obstruction (principal); N17.9 Acute kidney failure, unspecified; K52.9 Noninfective gastroenteritis and colitis, unspecified; E03.9 Hypothyroidism, unspecified; Z85.850 Personal history of malignant neoplasm of thyroid; E89.0 Postprocedural hypothyroidism; F41.8 Other specified anxiety disorders; I10 Essential (primary) hypertension; K21.9 Gastro-esophageal reflux disease without esophagitis
CPT/HCPCS: 36415; 74018; 74177; 80048; 80053; 83605; 83690; 83735; 85025; 85027; 85652; 87040; 94640; 97802; 99283; J7030; J7040; Q9967; A4216

== ENCOUNTER → 2018-09-01 16:47 | Outpatient (CLI) | payer MEDICARE, OTHER, SELFPAY ==
[2018-08-28 09:07] VITALS: BMI 21.4
--- NOTE | 2018-09-01 16:50 | CT_ITS ---
STUDY: CT ABDOMEN AND PELVIS WITH CONTRAST REASON FOR EXAM: Female, 77 years old. Small bowel mural thickening. RADIATION DOSAGE (If Supplied By Facility): CTDIvol = ( 12.57 ) mGy, DLP = ( 461.27 ) mGycm TECHNIQUE: Transaxial images were obtained from the dome of the diaphragm to the symphysis pubis without oral contrast. 100ML ml of Isovue 300 contrast was administered. Sagittal and coronal images were reconstructed. Individualized dose optimization techniques were used for this CT. COMPARISON: None. FINDINGS: The lung bases are clear. The liver is normal. No dilated intrahepatic biliary radicles. The gallbladder is normal with no calcifications within it. There is no pericholecystic fluid collection or streakiness The spleen is normal. The pancreas is normal. Both adrenals are normal. The kidneys are normal with no masses, calculi or hydronephrosis The stomach is normal. There is no bowel distention, acute appendicitis or diverticulitis. No constricting lesions are seen in large bowel. Moderate fecal stasis The abdominal wall is intact with no hernias. There is no ascites or any free intraperitoneal air. No indication of epiploic appendagitis The vascular structures in the retroperitoneum are normal. There is no retrocrural, retroperitoneal or mesenteric adenopathy. Spondylolisthesis of L4 over L5 and intervertebral osteochondrosis at L5-S1. The urinary bladder is normal.--Prior hysterectomy. There is no inguinal or pelvic adenopathy. There is no inguinal hernia. . CT/Abdomen/Pelvis WITH Contrast IMPRESSION: Moderate fecal stasis. Nothing acute Electronically Signed: Prabhu Barreto MD at 7:26 EST Tel , Service support ,
== END ==
PROVIDERS: Family Provider Family Medicine; PCP Family Medicine; Referring Provider Surgery; Visit Provider Surgery
DX: K63.9 Disease of intestine, unspecified (principal)
CPT/HCPCS: 74177; Q9967

== ENCOUNTER → 2019-01-08 12:43 | Outpatient (CLI) | payer MEDICARE, OTHER, SELFPAY ==
[2018-08-28 10:08] VITALS: BMI 21.3
--- NOTE | 2019-01-08 12:48 | VDLE_ITS ---
Reason For Study: Varicose veins/Swelling RIGHT LEFT CFV is compressible, spontaneous, phasic, CFV is compressible, spontaneous, phasic, competent and demonstrates normal competent, and demonstrates normal augmentation. augmentation. FV is compressible, spontaneous, phasic, FV is compressible, spontaneous, phasic, competent and demonstrates normal competent and demonstrates normal augmentation. augmentation. POP V is compressible, spontaneous, phasic, POP V is compressible, spontaneous, phasic, competent and demonstrates normal competent and demonstrates normal augmentation. augmentation. T/P Trunk is compressible. T/P Trunk is compressible. PTV is compressible. PTV is compressible. RT PerV is compressible. LT PerV is compressible. SFJ is competent. SFJ is competent. GSV is competent. GSV is competent above knee. SSV is competent. GSV below knee to small to evaluate. SSV is competent. GSV and SSV small in diameter, techniacally difficult to evaluate. GSV and SSV small in diameter, techniacally Procedure difficult to evaluate. Exam performed in department. Patient was scanned in reverse Trendelenburg position during reflux assessment. Interpretation Summary 1. No DVT or SVT bilaterally. 2. No reflux noted and bilateral GSV and LSV small. Ordering Physician: Seth Rocha Referring Physician: Antonella Loyola Performed By: Courtney Rios RVT
== END ==
PROVIDERS: Family Provider Family Medicine; PCP Family Medicine; Referring Provider Surgery Vascular Surgery; Visit Provider Surgery Vascular Surgery
DX: M79.89 Other specified soft tissue disorders (principal); M79.609 Pain in unspecified limb; I83.893 Varicose veins of bilateral lower extremities with other complications
CPT/HCPCS: 93970

== ENCOUNTER → 2019-08-08 08:50 | Outpatient (CLI) | payer MEDICARE, OTHER, SELFPAY ==
[2018-08-28 10:08] VITALS: BMI 21.3
--- NOTE | 2019-08-08 08:55 | MRI_ITS ---
STUDY: MRI RIGHT SHOULDER REASON FOR EXAM: Right shoulder pain, weakness and limited range of motion since before , no specific injury. TECHNIQUE: Standardized fat and water weighted pulse sequences were obtained in all 3 orthogonal planes. COMPARISON: None. FINDINGS: There is mild supraspinatus tendinosis with a small mostly intermediate grade partial-thickness tear of the articular surface of the distal supraspinatus tendon (T2 coronal image 11) measuring 0.6 cm in length with a possible small linear full-thickness component (T2 axial image 6). Normal infraspinatus tendon. Normal subscapularis tendon. Normal teres minor tendon. Normal supraspinatus muscle. Normal infraspinatus muscle. Normal subscapularis muscle. Normal teres minor muscle. There is a glenohumeral joint effusion. There is mild cystic change and mild bone edema in the greater tuberosity. Normal biceps labral complex. Normal intracapsular long biceps tendon. Normal labrum. Normal capsulo- ligamentous complex. There is acromioclavicular arthrosis without substantial undersurface osteophytes (T2 sagittal image 15). There is a Type II morphology (curved), with a neutral orientation. There is subacromial-subdeltoid bursal fluid. Normal visualized coracohumeral and coracoacromial ligaments. Normal deltoid muscle. Normal trapezius muscle. MRI/Upper Ext Joint Only(Routine) IMPRESSION: Small mostly intermediate grade partial-thickness tear of the supraspinatus tendon with a possible small linear full-thickness component. Acromioclavicular arthrosis. Glenohumeral joint and subacromial-subdeltoid bursal fluid. Electronically Signed: Placido Lema MD at 10:35 EST Tel , Service support ,
== END ==
PROVIDERS: Family Provider Family Medicine; PCP Family Medicine; Referring Provider Family Medicine; Visit Provider Family Medicine
DX: M25.511 Pain in right shoulder (principal); M62.81 Muscle weakness (generalized)
CPT/HCPCS: 73221

== ENCOUNTER 2019-08-25 17:29 | Emergency (ER) | payer MEDICARE, OTHER, SELFPAY ==
[2018-08-28 10:08] VITALS: BMI 21.3
[2019-08-25 17:31] VITALS: BP 103/71; PULSE 88; RESP 14; TEMP 36.5; O2SAT 98; BMI 22.4
[2019-08-25 18:06] LABS: Absolute Lymphocyte Count 0.39 X10^3/uL (0.83-4.51); Basophil# 0.03 X10^3/uL; Basophil% 0.3 % (0-1); Eosinophil# 0.04 X10^3/uL; Eosinophils% 0.4 % (0-5); Hematocrit 40.2 % (37-47); Hemoglobin 12.9 g/dL (12.0-15.0); Lymphocyte # 0.39 X10^3/ul (4.0); Lymphocyte % 3.6 % (19-41); Mean Corp Hgb Conc 32.1 g/dL (32-36); Mean Corpuscular Hgb 31.1 pg (27.0-32.0); Mean Corpuscular Volume 96.9 fL (81-99); Mean Platelet Vol. 11.2 fl (6.2-12.0); Monocyte# 0.33 X10^3/uL; NRBC Flagged by Analyzer 0 % (0-5); Neutrophil # 9.99 X10^3/uL (2.7-7.7); Neutrophil % 92.3 % (47-70); POSITIVE DIFFERENTIAL YES; Platelet Count 182 K/mm3 (150-450); RBC Distribution Width CV 12.9 % (11.6-14.6); RBC Distribution Width SD 46.1 fl (35.1-43.9); Red Blood Count 4.15 M/mm3 (4.2-5.4); White Blood Count 10.8 K/mm3 (4.4-11.0)
--- NOTE | 2019-08-25 18:07 | CT_ITS ---
STUDY: CT ABDOMEN AND PELVIS WITHOUT CONTRAST REASON FOR EXAM: Female, 78 years old. Cramping and constipation. RADIATION DOSAGE (If Supplied By Facility): CTDIvol = ( 7.10 ) mGy, DLP = ( 376.63 ) mGycm TECHNIQUE: Transaxial images were obtained from the dome of the diaphragm to the symphysis pubis without oral contrast, and without intravenous contrast. Sagittal and coronal images were reconstructed. Individualized dose optimization techniques were used for this CT. COMPARISON: None. FINDINGS: The visualized lung bases are unremarkable. The visualized portions of the heart are within normal limits. Normal liver. Normal gallbladder and extrahepatic biliary system. Normal spleen. Normal pancreas. Normal bilateral adrenal glands. Normal right kidney. Normal left kidney. Evaluation of the GI tract is limited by the absence of oral contrast. There is moderate fluid distention of the stomach. Most of the small bowel is mildly distended with fluid. Findings suggest nonspecific gastroenteritis. Normal caliber large bowel, with diffuse marked fecal retention. Normal appendix. Normal abdominal aorta. Normal inferior vena cava. Normal retroperitoneum. Normal urinary bladder. There is absence of the uterus consistent with a prior hysterectomy. Normal abdominal wall. There are diffuse degenerative changes of the visualized lumbar spine. CT/Abdomen/Pelvis without Cont IMPRESSION: Fluid distention of the stomach and small bowel most consistent with a nonspecific gastroenteritis. Marked diffuse fecal retention throughout the large bowel. Electronically Signed: Douglas Purvis MD at 19:32 EST , Service support ,
[2019-08-25 18:12] LABS: Differential Indicated SCAN CRITERIA MET
[2019-08-25 18:15] LABS: Anion Gap 5 (5-15); BUN 31 mg/dL (7-18); BUN/Creat Ratio 33.3 RATIO (10-20); Calcium,Total 8.6 mg/dL (8.5-10.1); Chloride 108 mmol/L (98-107); Creatinine, Serum 0.93 mg/dL (0.55-1.02); EST Glomerular Filtration Rate 62 mL/min (>60); Est Glom Filt Rate - Afr Amer 75 mL/min (>60); Estimated Creatinine Clearance 48.18 ml/min; Glucose 132 mg/dL (74-106); Potassium 3.7 mmol/L (3.5-5.1); Sodium Level 140 mmol/L (136-145)
[2019-08-25 18:34] LABS: Differential Comment SCANNED
--- NOTE | 2019-08-25 19:37 | ED.VIS.GEN ---
History of Present Illness Chief Complaint: Abd Pain Informant: Patient Onset: - - Years of intermittent abdominal pain Maximum Severity: Mild Narrative: She presents complaining of lower bilateral abdominal cramps that seem to come and go she has a history of irritable bowel, she had extensive evaluation of this condition including CAT scans colonoscopies that did not show anything other than the above. She is had no nausea or vomiting she indicates she has chronic constipation she is passing stool to her normal she does take MiraLAX daily she has been seen by surgery and GI multiple times the past for the above she is currently resting comfortably in bed her symptoms have improved without specific therapy Past Medical History - Allergies and Home Meds Allergies/Adverse Reactions: Allergies No Known Allergies Allergy (Verified 08/25/19 17:31) Primary Care Physician: Antonella Loyola DO [Primary Care Provider] - Past Medical History: - Surgical History: - - Hysterectomy with pelvic floor reconstructive surgery, thyroid resection, cataract surgery. Smoking Status: Never smoker - Family History Maternal Family History: Reports: No pertinent history Paternal Family History: Reports: Diabetes, Heart Disease Review of Systems ROS: - As above General: Denies: Chills, Fever, Sweats Eyes: Denies: Visual changes - bilaterally, Diplopia ENT: Denies: Rhinorrhea, Sore throat Cardiovascular: Denies: Chest pain, Palpitations Respiratory: Denies: Dyspnea, Cough, Dyspnea on exertion Gastrointestinal: Reports: Abdominal pain. Denies: Nausea, Vomiting, Diarrhea, Melena, Hematochezia Genitourinary: Denies: Dysuria, Hematuria, Frequency Musculoskeletal: Denies: Back pain, Extremity Pain Skin: Denies: Rash, Wounds Neurological: Denies: Headache, Weakness, Numbness Physical Exam Vital Signs/Narrative: Vital Signs Temp Pulse Resp BP Pulse Ox 08/25/19 17:31 97.7 F L 88 14 103/71 98 General: Well nourished, Well developed, No Acute Distress Head: Normocephalic, Atraumatic Eyes: Perrl, EOMI ENT: Moist mucous membranes, No rhinorrhea Neck: Supple, Nontender Cardiovascular: Regular rate, Regular rhythm, No murmurs Respiratory: No distress, CTA bilaterally, Chest nontender Abdomen: Soft, Nontender, Nondistended, Normal bowel sounds, - - Soft there is no focality or complaints of pain the cramps she points to are in the right and left lower side of the abdomen the palpation of the abdomen reveals no rebound guarding organomegaly or focal discomfort she indicates she is feeling better for no specific reason Back: Nontender, Normal Inspection Extremities: Nontender, No edema Skin: Normal color, No rash Neurological: Alert, Oriented x3, Cranial nerves II-XII grossly intact, Normal Strength, Normal Sensation Psychological: Normal affect, Normal Mood Diagnostic/Tx/Re-eval - Medical Decision Making Given her history and age age differential is extensive, she is never been told she require surgery for this condition she does not have history of diverticulitis AAA etc., her screening labs are all generally unremarkable, CT abdomen shows nothing acute stomach filled with fluid there appears to be signs of constipation UA is pending She indicates she does not sure she could not void as she just voided prior to coming to the emergency department she understands the test results are generally unremarkable she is comfortable discharge home and follow-up with her surgeon her GI physician next few days to be discharged on Bentyl to use as needed and stay in a bland diet continue her MiraLAX Home stable Final impression intermittent abdominal pain resolved history of irritable bowel constipation ED Disposition - Plan for ED Patient: Diagnosis: Abdominal pain Instructions: ABDOMINAL PAIN, Unknown Cause, (Female) Prescriptions: Dicyclomine HCl [Bentyl] 20 mg PO ACHS #5 cap Prescription Printed Referrals: Antonella Loyola DO [Primary Care Provider] -
[2019-08-25 19:59] LABS: Mucous, Urine 0 SEEN /hpf (<or=2+); Red Blood Cells-Urine 0 SEEN /hpf (0-5); Squamous Epithelial Cells - UA 0 SEEN /hpf (5-10); White Blood Cells 0 SEEN /hpf (0-5)
[2019-08-25 20:09] LABS: Color, Urine Yellow (Yellow); Glucose, Dipstick Normal (Normal); Ketone-Dipstick 15 mg/dl (Negative); Leukocyte Esterase-Dipstick 25 /ul (Negative); Nitrite-Dipstick Positive (Negative); Occult Blood-Urine Negative /ul (Negative); Protein-Dipstick 500 mg/dl (Negative); Specific Gravity, Urine 1.025 (1.002-1.030); Urine Clarity Cloudy (Clear); Urine Urobilinogen 1 mg/dl (Normal)
[2019-08-25 20:10] LABS: Urine Bilirubin Dipstick 1 mg/dL (Negative)
[2019-08-25 20:19] LABS: Bacteria 1+ /hpf (None Seen)
[2019-08-25 20:44] VITALS: BP 135/69; PULSE 85; RESP 65; TEMP -8.8; TEMP 16; O2SAT 97
== END 2019-08-25 20:46 | disposition home or self-care (01) ==
PROVIDERS: Emergency Provider Emergency Medicine; PCP Family Medicine
DX: R10.9 Unspecified abdominal pain (principal); K58.9 Irritable bowel syndrome, unspecified; Z79.899 Other long term (current) drug therapy
CPT/HCPCS: 74176; 80048; 81001; 85025; 96360; 99283; J7040; A4216

== ENCOUNTER → 2019-09-13 14:12 | Outpatient (CLI) | payer MEDICARE, OTHER, SELFPAY ==
[2019-09-13 14:05] VITALS: BMI 22.4
--- NOTE | 2019-09-13 14:13 | RAD_ITS ---
STUDY: X-RAY - RIGHT SHOULDER REASON FOR EXAM: Pain. TECHNIQUE: 4 view(s) of the shoulder. COMPARISON: None. FINDINGS: Normal glenohumeral articulation. There is acromioclavicular arthrosis. Normal acromion. Normal humeral head and visualized proximal humerus. The soft tissue structures are unremarkable. Normal visualized pulmonary apex. RAD/Shoulder min 2 Views IMPRESSION: Acromioclavicular arthrosis. Electronically Signed: Placido Lema MD at 14:54 EST Tel , Service support ,
== END ==
PROVIDERS: PCP Family Medicine; Referring Provider Orthopaedic Surgery; Visit Provider Orthopaedic Surgery
DX: M25.511 Pain in right shoulder (principal)
CPT/HCPCS: 73030

== ENCOUNTER 2019-10-24 14:00 | Outpatient (RCR) | payer MEDICARE, OTHER, SELFPAY ==
[2019-09-13 14:05] VITALS: BMI 22.4
--- NOTE | 2019-09-19 11:14 | HP.PTEVAL_ITS ---
Patient's Visit Information ESTRADA MURO is a 79 year old F referred to Physical Therapy by Dr. Leah Trinidad DO with a diagnosis of Right RTC tear. Date of Evaluation: 09/19/19 Physical Therapist: Brigette Burrell DPT - Visit Plan Frequency: 2x /Week Duration: 4 Weeks Plan: Known RTC Tear- focus on strength/stabilization of the scapula. HEP given 09/19: Mid row, postureal education, bilateral ER and wall wash - Subjective Findings: Insidous onset possibly when she was reaching overhead- Right shoulder pain had an injection last - its sore but she has more mobility. Her family physican did an MRI and CT Scan- showed a RTC tear- the injection instantly helped but she is still a little sore. Worst: 04/03 Best: 08/03 she can just feel it. Pain is located in the biceps and deltoid- No pain that raditates to the shoulder joint or neck. No N/T in the fingers. Describes the pain as dull and achy. No WRIGHT, blurred vision or dizziness. Sleep: not disturbed since the injection- side sleeper- no prefernce on side. Right hand dominate. She has had a lot of illness this year but she use to walk a lot and she has not done that for a couple of years. She likes to read and watch TV during the day. Is more sedentary but in the summer she is more active-loves to garden and be outside- likes to walk her little dog. 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 PMHx/Meds: no changes since she saw ortho - Objective Posture: FH, RS- can correct but does not maintain. Gait: no deviation noted- good arm swing and trunk rotation. Palpation: not tender. ROM: WFL in all planes no pain in shoulder or cervical spine. 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 Special Test: impingment: positive, Emtpy can: positive. - Goals Goal 1:: Patient will be I with HEP and progression Goal Time Frame: 4-6 Weeks Goal 2:: Patient will maintain proper posture t/o tx session to demo increased scap s/s Goal Time Frame: 4-6 Weeks Goal 3:: Patient will report 0/10 pain for 1 week with all ADL's. Goal Time Frame: 4-6 Weeks - Rehabilitation Potential Physical Therapy Diagnosis: Patient presents with hypomobility- she has decreased scapular s/s leading to poor posture and increased pain with ADLs's Rehabilitation Potential: Fair - Anticipated Interventions Patient/Client Instruction: Educate patient on: Benefits of Fitness Program Therapeutic Exercise to Include: Strength training, Endurance training, Body mechanics, Postural training, Scapular Strength/Stabilization For the Purpose of:: To improve muscle performance and motor function TENS: Yes Cryotherapy (ice pack, ice massage): Yes Thermo therapy (hot pack): Yes Ultrasound (thermal/non thermal): Yes For the Purpose of:: To decrease pain Thank you for the opportunity to evaluate your patient. For Medicare and Medicare HMO plans, please review the plan of care and approve it. It will need to be FAXED BACK to us at [phone] for Medicare purposes. For Medicare only, by signing this I certify the plan of care. Please let me know if there are questions or concerns regarding this plan of care. Physician Signature: Date:
--- NOTE | 2019-10-24 15:11 | HP.PTDCSUM ---
It has been my pleasure to treat ESTRADA MURO referred by Dr. Leah Trinidad DO, with the diagnosis of Right RTC tear for a total of 9 visit(s). Discharge Date: 10/24/19 Please see the following information for a summary of their discharge status. Subjective: Doing Well.Patient able to do all ADLS' and function Right shoulder Pain Intensity (Out of 10): 0 % Improvement: 90 Objective/Function: POSTURE: WFL. AROM: SHOULDER FLEXION 150 DEGREES,ABD 150,ER 90. MMT: RTC 4/5 ,DELTOID 4-/5. - IMPINGEMENT Goal 1:: Patient will be I with HEP and progression Goal Progress: Goal Met Goal 2:: Patient will maintain proper posture t/o tx session to demo increased scap s/s Goal Progress: Goal Met Goal 3:: Patient will report 0/10 pain for 1 week with all ADL's. Goal Progress: Goal Met Plan: D/C Discharge Comments: HEP If there are questions or concerns regarding this patient's physical therapy, please feel free to call me at [phone]. Thank you for the referral of this patient. Sincerely, Raghavendra Wilson, PT, Cert MDT, OCS
== END 2019-10-24 19:00 | disposition home or self-care (01) ==
LOC: PT 14:00
PROVIDERS: PCP Family Medicine; Referring Provider Orthopaedic Surgery; Visit Provider Orthopaedic Surgery
DX: M75.101 Unspecified rotator cuff tear or rupture of right shoulder, not specified as traumatic (principal)
CPT/HCPCS: 97110; 97161

== ENCOUNTER → 2020-02-21 10:16 | Outpatient (CLI) | payer MEDICARE, OTHER, SELFPAY ==
[2019-09-13 14:05] VITALS: BMI 22.4
--- NOTE | 2020-02-21 10:20 | RAD_ITS ---
STUDY: X-RAY - LEFT KNEE REASON FOR EXAM: Female, 79 years old. PAIN ANTERIOR AND LATERAL KNEE. MASS LATERALLY OF KNEE TECHNIQUE: 4 view(s) of the knee. COMPARISON: None. FINDINGS: Chondrocalcinosis lateral costochondral cartilage. Normal visualized distal femur. Normal visualized proximal tibia and fibula. Normal proximal tibiofibular articulation. Normal medial femorotibial compartment. Normal lateral femorotibial compartment. Normal patellofemoral articulation. The soft tissue structures are unremarkable. RAD/Knee 4 or More Views IMPRESSION: Chondrocalcinosis Electronically Signed: William Johnson MD at 16:53 EDT , Service support ,
== END ==
PROVIDERS: PCP Family Medicine; Referring Provider Family Medicine; Visit Provider Family Medicine
DX: M25.562 Pain in left knee (principal); M25.862 Other specified joint disorders, left knee
CPT/HCPCS: 73564

== ENCOUNTER → 2020-05-29 14:35 | Outpatient (CLI) | payer MEDICARE, OTHER, SELFPAY ==
[2019-09-13 14:05] VITALS: BMI 22.4
[2020-05-29 17:55] LABS: Absolute Lymphocyte Count 1.95 X10^3/uL (0.83-4.51); Basophil# 0.04 X10^3/uL; Basophil% 0.6 % (0-1); Eosinophil# 0.07 X10^3/uL; Eosinophils% 1.1 % (0-5); Hematocrit 39.9 % (37-47); Hemoglobin 12.4 g/dL (12.0-15.0); Lymphocyte # 1.95 X10^3/ul (4.0); Mean Corp Hgb Conc 31.1 g/dL (32-36); Mean Corpuscular Hgb 31.1 pg (27.0-32.0); Mean Platelet Vol. 12.1 fl (6.2-12.0); Monocyte# 0.44 X10^3/uL; Monocyte% 6.8 % (0-10); NRBC Flagged by Analyzer 0 % (0-5); Neutrophil # 3.99 X10^3/uL (2.7-7.7); Neutrophil % 61.3 % (47-70); Platelet Count 210 K/mm3 (150-450); RBC Distribution Width CV 13.1 % (11.6-14.6); RBC Distribution Width SD 48.6 fl (35.1-43.9); Red Blood Count 3.99 M/mm3 (4.2-5.4); White Blood Count 6.5 K/mm3 (4.4-11.0)
[2020-05-29 17:59] LABS: Vitamin B12 1655 pg/mL (211-911)
[2020-05-29 19:26] LABS: AST(SGOT) 20 U/L (15-37); Alanine Aminotransfer ALT/SGPT 17 U/L (13-56); Albumin, Serum 3.8 g/dL (3.2-5.0); Alkaline Phosphatase 63 U/L (45-117); Anion Gap 6 (5-15); BUN 23 mg/dL (7-18); BUN/Creat Ratio 27.1 RATIO (10-20); Chloride 103 mmol/L (98-107); Creatinine, Serum 0.85 mg/dL (0.55-1.02); EST Glomerular Filtration Rate 69 mL/min (>60); Est Glom Filt Rate - Afr Amer 83 mL/min (>60); Globulin 3.8 g/dL (2.2-4.2); Glucose 82 mg/dL (74-106); Iron 66 ug/dL (50-170); Magnesium 2.3 mg/dL (1.6-2.6); Potassium 3.8 mmol/L (3.5-5.1); Protein, Total 7.6 g/dL (6.4-8.2); Sodium Level 138 mmol/L (136-145); T4 Free Direct 1.21 ng/dL (0.76-1.46); Thyroid Stim Hormone (TSH) 4.39 uIU/mL (0.358-3.74)
== END ==
PROVIDERS: PCP Family Medicine; Referring Provider Family Medicine; Visit Provider Family Medicine
DX: E03.9 Hypothyroidism, unspecified (principal); E53.8 Deficiency of other specified B group vitamins; Z51.81 Encounter for therapeutic drug level monitoring
CPT/HCPCS: 36415; 80053; 82607; 83540; 83735; 84439; 84443; 84481; 85025

== ENCOUNTER 2020-07-22 12:30 | Outpatient (RCR) | payer MEDICARE, OTHER, SELFPAY ==
[2019-09-13 14:05] VITALS: BMI 22.4
--- NOTE | 2020-06-09 12:28 | HP.PTEVAL_ITS ---
Patient's Visit Information ESTRADA MURO is a 79 year old F referred to Physical Therapy by Dr. Antonella Loyola DO with a diagnosis of RIGHT SHOULDER PAIN. Date of Evaluation: 06/09/20 Physical Therapist: Raghavendra Wilson, PT, Cert MDT, OCS - Visit Plan Frequency: 2x /Week Duration: 4 Weeks Plan: PT INTERVENTIONS RTC/SCAPULAR STRENGTHENING,POSTURAL EX'S AND MODALITIES - Subjective This 79 y/o female presents to physical therapy with right shoulder. Patient in summer carrying buckets which made shoulder pain. Altough ,patient has h/o of RTC tear partial -thickness tear of suprasoinatous. Patient Seen recently seen DR sheehan topical pain gel. Patient pain located lateral arm . Described as a ache . Patient rest arm in Mar adn Apr. Patient denies parathesia/tingling. Patient sleeping okay. Patient right shoulder pain inoairs ADL's ,housework tasks and QOL. PatieNt pain is worse with OH activities and ADLS'. SOCIAL: . VOCATION: retired - Pain Right Shoulder Pain Intensity (Out of 10): 8 Pain Intensity Range: 10 - Objective POSTURE: rounded shoulders head foward. PALPATION: unremarkabe. NEURO: intact. AROM: right shoulder flexion 120 degees,abduction 120 degrees,ER 90 degrees ,IR T8. MMT: suprasinatous 4-/5 pain,infraspinatous 4-/5,deltoid 3+/5 miod pain,subscapualrs 4/5 - Special Tests R Shoulder External Rotation Lag Test - RC Tear: Negative R Shoulder Supine Impingement Test - RC Tear: Negative R Shoulder Lift Off Test - Subscapular Tear: Negative R Shoulder Drop Sign - IS Test: Negative R Shoulder Empty Can - SS: Positive R Shoulder Belly Press - SupScap: Negative R Shoulder Neer - Impingement: Positive R Shoulder Mast Alfredo - Impingement: Positive - Goals Goal 1:: I with HEP Goal Time Frame: 4-6 Weeks Goal 2:: Patient to improve posture for ADL'S Goal Time Frame: 4-6 Weeks Goal 3:: Patient to decrease pain by 50% or > to improve function and ADL'S Goal Time Frame: 4-6 Weeks Goal 4:: Patient to increase AROM symmtrical right to left for activities above 90 degrees. Goal Time Frame: 4-6 Weeks Goal 5:: Patient to increase strength of RTC and deltoid by 1/2 grade to improve function. Goal Time Frame: 4-6 Weeks Goal 6:: Patient to improve quick dash by 5 points or > to improve QOL Goal Time Frame: 4-6 Weeks - Rehabilitation Potential Physical Therapy Diagnosis: This 79 y/o pain with weakness ,decrease ROM impairs function with ADL's and housework worktasks thus benifit from skilled PT Rehabilitation Potential: Good - Anticipated Interventions Patient/Client Instruction: Educate patient on: Condition, Plan of Care For the Purpose of:: To decrease pain, To increase ROM, To improve muscle performance and motor function, To increase tolerance to activity/condition/position, To improve performance and independence with ADL's, To improve ability of physical actions for home/community/work/leisure, To improve health of tissue, To decrease soft tissue restriction, To increase flexibility/ROM, To assume or resume ADL's, To improve ability to perform tasks related to life management Therapeutic Exercise to Include: Strength training, Postural training, Flexibilty training, Scapular Strength/Stabilization Comment: RTC For the Purpose of:: To decrease pain, To increase ROM, To improve muscle performance and motor function, To improve ability to perform ADL's, To increase tolerance to activity/condition/position, To improve ability of physical actions for home/community/work/leisure, To increase flexibility/ROM, To improve ability to perform tasks related to life management TENS: Yes IF ES: Yes Cryotherapy (ice pack, ice massage): Yes Thermo therapy (hot pack): Yes Ultrasound (thermal/non thermal): Yes For the Purpose of:: To decrease pain, To increase ROM, To improve nutrient delivery to tissue, To increase oxygenation perfusion, To improve health of tissue, To decrease soft tissue restriction Thank you for the opportunity to evaluate your patient. For Medicare and Medicare HMO plans, please review the plan of care and approve it. It will need to be FAXED BACK to us at [phone] for Medicare purposes. For Medicare only, by signing this I certify the plan of care. Please let me know if there are questions or concerns regarding this plan of c are. Physician Signature: Date:
--- NOTE | 2020-07-22 12:57 | HP.PTDCSUM ---
It has been my pleasure to treat ESTRADA MURO referred by Dr. Antonella Loyola DO, with the diagnosis of RIGHT SHOULDER PAIN for a total of 9 visit(s). Discharge Date: 07/22/20 Please see the following information for a summary of their discharge status. Subjective: Doing well ready d/c .No problems with ADL'S Right Shoulder Pain Intensity (Out of 10): 0 % Improvement: 85 Objective/Function: POSTURE: WFL. AROM: SHOULDER FLEXION 150 DEGREES,ABDUCTION 150 DEGREES,ER 90 DEGREES. MMT: RTC 4/5 SUPRASPIANTOUS 4-/5,DELTOID 4-/5 Goal 1:: I with HEP Goal Progress: Goal Met Goal 2:: Patient to improve posture for ADL'S Goal Progress: Goal Met Goal 3:: Patient to decrease pain by 50% or > to improve function and ADL'S Goal Progress: Goal Met Goal 4:: Patient to increase AROM symmtrical right to left for activities above 90 degrees. Goal Progress: Goal Met Goal 5:: Patient to increase strength of RTC and deltoid by 1/2 grade to improve function. Goal Progress: Goal Met Goal 6:: Patient to improve quick dash by 5 points or > to improve QOL Goal Progress: Goal Met Plan: D/C Discharge Comments: HEP If there are questions or concerns regarding this patient's physical therapy, please feel free to call me at [phone]. Thank you for the referral of this patient. Sincerely, Raghavendra Wilson, PT, Cert MDT, OCS
== END 2020-07-22 19:00 | disposition home or self-care (01) ==
LOC: PT 12:30
PROVIDERS: PCP Family Medicine; Referring Provider Family Medicine; Visit Provider Family Medicine
DX: S46.811D Strain of other muscles, fascia and tendons at shoulder and upper arm level, right arm, subsequent encounter (principal)
CPT/HCPCS: 97110; 97162

== ENCOUNTER → 2020-08-05 13:45 | Outpatient (CLI) | payer MEDICARE, OTHER, SELFPAY ==
[2019-09-13 14:05] VITALS: BMI 22.4
[2020-08-05 16:37] LABS: Free T3 2.1 pg/mL (2.18-3.98); T4 Free Direct 1.26 ng/dL (0.76-1.46)
== END ==
PROVIDERS: PCP Family Medicine; Visit Provider Family Medicine
DX: E03.9 Hypothyroidism, unspecified (principal)
CPT/HCPCS: 36415; 84439; 84443; 84481

== ENCOUNTER → 2020-09-09 13:52 | Outpatient (CLI) | payer MEDICARE, OTHER, SELFPAY ==
--- NOTE | 2020-09-09 13:53 | MRI_ITS ---
STUDY: MRI RIGHT SHOULDER REASON FOR EXAM: Female, 79 years old. right shoulder pain extending to elbow TECHNIQUE: Standardized fat and water weighted pulse sequences were obtained in all 3 orthogonal planes. COMPARISON: 08/08/2019 FINDINGS: Moderate supraspinatus and infraspinatus tendinosis and peritendinitis as with a full-thickness complete tear of the supraspinatus tendon retracted to the glenohumeral joint. There is subscapularis tendinosis with tendon thickening, but without a demonstrated tendon tear. Normal teres minor tendon. There is severe muscular atrophy of the supraspinatus muscle. There is mild muscular atrophy of the infraspinatus muscle. Normal subscapularis muscle. Normal teres minor muscle. There is a moderate volume joint effusion of the glenohumeral joint. Normal humeral head and visualized proximal humerus. Normal biceps labral complex. Normal intracapsular long biceps tendon. Normal labrum. Normal capsulo- ligamentous complex. Normal rotator interval. There is mild osteoarthritis of the acromioclavicular articulation. There is a Type II morphology (curved), with a neutral orientation. There is no subacromial-subdeltoid bursal fluid. Normal visualized coracohumeral and coracoacromial ligaments. Normal quadrilateral space. Normal axillary space. Normal deltoid muscle. Normal trapezius muscle. MRI/Upper Ext Joint Only(Routine) IMPRESSION: 1. Moderate supraspinatus and infraspinatus tendinosis and peritendinitis as with a full-thickness complete tear of the supraspinatus tendon retracted to the glenohumeral joint with severe muscular atrophy. 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 2. Moderate subscapularis tendinosis. 3. Moderate joint effusion. Electronically Signed: Jere Moreira MD at 16:39 EST Tel , Service support ,
== END ==
PROVIDERS: PCP Family Medicine; Referring Provider Orthopaedic Surgery; Visit Provider Orthopaedic Surgery
DX: M75.100 Unspecified rotator cuff tear or rupture of unspecified shoulder, not specified as traumatic (principal)
CPT/HCPCS: 73221

== ENCOUNTER 2020-09-10 11:40 | Emergency (ER) | payer MEDICARE, OTHER, SELFPAY ==
[2020-09-10 11:40] VITALS: BP 138/89; PULSE 80; RESP 16; TEMP 35.8; O2SAT 96; BMI 22.1
--- NOTE | 2020-09-10 12:18 | ED.DCSUM_ITS ---
History of Present Illness Chief Complaint: Other, Pain/Inj Informant: Patient Onset: Days Context: Gradual Onset Timing: Waxes and wanes Current Severity: Mild Maximum Severity: Moderate Narrative: Patient presents with sharp right-sided neck pain for the past 3 days. She has been following with Dr. Trinidad secondary to right shoulder injury. She had a MRI performed yesterday that confirmed a supraspinatus tear. Patient states that since Tuesday evening she has been having spasms of pain of the right side of her neck. She did take ibuprofen prior to arrival and feels like it is coming down currently. She has been having throbbing pain between her shoulder and elbow on the right. No paresthesias. She denies any recent injury. - Past Medical History (1) Hypothyroid Status: Chronic (2) HTN (hypertension) Status: Chronic Past Medical History - Allergies and Home Meds Allergies/Adverse Reactions: Allergies No Known Allergies Allergy (Verified 09/10/20 11:40) Primary Care Physician: Antonella Loyola DO [Primary Care Provider] - Prior records reviewed: Yes Surgical History: - - Hysterectomy with pelvic floor reconstructive surgery, thyroid resection, cataract surgery. Lives: Spouse/ Significant Other Smoking Status: Never smoker - Family History Maternal Family History: Reports: No pertinent history Paternal Family History: Reports: Diabetes, Heart Disease Review of Systems General: Denies: Chills, Fever Eyes: Denies: Visual changes - bilaterally ENT: Denies: Bilateral ear pain Cardiovascular: Denies: Chest pain Respiratory: Denies: Dyspnea, Cough Gastrointestinal: Denies: Abdominal pain, Vomiting, Diarrhea Genitourinary: Denies: Dysuria Musculoskeletal: Reports: Neck pain, Extremity Pain Skin: Denies: Rash Neurological: Denies: Parasthesia, Numbness Hematologic: Denies: Easy bruising, Easy bleeding Allergy: Denies: Uticaria Physical Exam Vital Signs/Narrative: Vital Signs Temp Pulse Resp BP Pulse Ox 09/10/20 11:40 96.5 F L 80 16 138/89 H 96 Inital Vital Signs reviewed: Yes General: Well nourished, Well developed Head: Normocephalic ENT: Moist mucous membranes Neck: Supple, - - No midline cervical tenderness. Positive tenderness in the right cervical paraspinal region over the trapezius muscles. Cardiovascular: Regular rate, Regular rhythm Respiratory: No distress, CTA bilaterally Abdomen: Soft, Nontender Extremities: - - Patient has mild diffuse tenderness with palpation on the right shoulder. Decreased range of motion secondary to pain. Strong distal pulses. Skin: Normal color Neurological: Alert, Oriented x3 Psychological: Normal affect Diagnostic/Tx/Re-eval - Medical Decision Making Reviewed the patient's MRI from yesterday. She does have a complete supraspinatus tear with retraction of the muscle. I do believe her neck pain is secondary to this along with spasm. She will be placed in a sling and given a short course of [place]. I did do an oars report she is had no prior prescriptions in the past year. We did discuss using only half a tab if that was able to control her pain. She was also warned about the constipating side effects. Patient will follow up with Dr. Trinidad. ED Disposition - Plan for ED Patient: Disposition: Home or Assisted Living Diagnosis: Musculoskeletal neck pain Instructions: ED Neck Pain Prescriptions: Hydrocodone Bitart/Apap 5-325 [[place] 5MG-325MG] 1 tablet PO Q6H PRN PRN 3 Days #10 tablet PRN Reason: Pain Transmission Status: Received by [facility] [facility] Referrals: Leah Trinidad DO [STAFF PHYSICIAN] - 5-7 Days
[2020-09-10] MEDS: HYDROcodone Bitartrate/Apap 5/325 Tablet PO (12:31)
[2020-09-10 12:43] VITALS: RESP 18
== END 2020-09-10 12:44 | disposition home or self-care (01) ==
LOC: ED 12:33
PROVIDERS: Emergency Provider Emergency Medicine; PCP Family Medicine
DX: M54.2 Cervicalgia (principal); M75.121 Complete rotator cuff tear or rupture of right shoulder, not specified as traumatic; E03.9 Hypothyroidism, unspecified; I10 Essential (primary) hypertension; Z79.899 Other long term (current) drug therapy
CPT/HCPCS: 99283

== ENCOUNTER 2020-11-13 11:00 | Outpatient (RCR) | payer MEDICARE, OTHER, SELFPAY ==
--- NOTE | 2020-09-25 12:26 | HP.PTEVAL_ITS ---
Patient's Visit Information ESTRADA MURO is a 80 year old F referred to Physical Therapy by Dr. Leah Trinidad DO with a diagnosis of COMPLETE TEAR SUPRASPINATOUS TENDON,RIGHT SHOULDER ARTHRITIS. Date of Evaluation: 09/25/20 Physical Therapist: Raghavendra Wilson, PT, Cert MDT, OCS - Visit Plan Frequency: 2x /Week Duration: 4 Weeks Plan: PT INTERVETIONS RTC/SCAPULAR STRENGTHENING POSTURAL EX'S,MODALTIES AND MANUAL THERAPY - Subjective This 80 y/o female presents to physical therapy with right shoulder complete tear supraspinatous. Patient last summer carrying buckets cause pain in right shoulder. Patient has h/o partial partial -thickness tear. Patient had PT improved . Most recently seen DR Zeng ,due to pain worse. Did MRI showed full thickness tear supraspinatous and OA. Did cortizine injection decrease pain. Aggarveting factors lifting OH ROM for ADLS and self hygine . Pain affects housework tasks. Alleviating factors rest . Denies parathesia/tingling. Patient able to sleep at night. Patient condtion affects ADL's and housework tasks. Patient condition affects QOL. SOCIAL: . VOACTION:retired - Pain Right Shoulder Pain Intensity (Out of 10): 2 Pain Intensity Range: 10 - Objective POSTURE: mild foward posture. NEURO: intact. PALAPTION: unremarkable. AROM SHOULDER: flexion 130 degrees,abduction in scaption 120 degrees,ER 90 degrees,IR L1. PROM: shoulder flexion 150 degrees ,abduction 150 degrees. MMT: infraspinatous 4-/5,supraspinatous 4-/5,subscapularis 4/5,deltoid 3+/5 - Special Tests R Shoulder External Rotation Lag Test - RC Tear: Negative R Shoulder Supine Impingement Test - RC Tear: Negative R Shoulder Lift Off Test - Subscapular Tear: Negative R Shoulder Drop Sign - IS Test: Negative R Shoulder Empty Can - SS: Positive R Shoulder Belly Press - SupScap: Negative R Shoulder Neer - Impingement: Positive R Shoulder Mast Alfredo - Impingement: Positive - Goals Goal 1:: Patient to be I with HEP. Goal Time Frame: 4-6 Weeks Goal 2:: Patient to decrease pain right shoulder 50% or > to improve QOL and function. Goal Time Frame: 4-6 Weeks Goal 3:: Patient increase right shoulder AROM flexion/abd by 145 degrees or> to improve function. Goal Time Frame: 4-6 Weeks Goal 4:: Patient to improve strength RTC 4/5 and deltoid 4-/5 to improve function Goal Time Frame: 4-6 Weeks Goal 5:: Patient to increase quick dash by 5 points or > to improve QOL. Goal Time Frame: 4-6 Weeks - Rehabilitation Potential Physical Therapy Diagnosis: This patient has right shoulder pain ith supraspinatous tear with decrease ROM ,strength impair ADLS and hous work tasks thus will benifit from skilled PT . Rehabilitation Potential: Good - Anticipated Interventions Patient/Client Instruction: Educate patient on: Condition, Plan of Care For the Purpose of:: To decrease pain, To increase ROM, To improve muscle performance and motor function, To improve ability to perform ADL's, To increase tolerance to activity/condition/position, To improve ability of physical actions for home/community/work/leisure, To improve health of tissue, To decrease soft tissue restriction, To increase flexibility/ROM Therapeutic Exercise to Include: Strength training, Postural training, Active ROM, Scapular Strength/Stabilization Comment: RTC For the Purpose of:: To decrease pain, To increase ROM, To improve nutrient delivery to tissue, To increase oxygenation perfusion, To improve health of tissue, To decrease soft tissue restriction Manual Therapy Techniques to Include: Mobilization Comment: G-H For the Purpose of:: To increase ROM, To improve health of tissue, To decrease soft tissue restriction, To increase flexibility/ROM TENS: Yes IF ES: Yes Cryotherapy (ice pack, ice massage): Yes Thermo therapy (hot pack): Yes Ultrasound (thermal/non thermal): Yes For the Purpose of:: To decrease pain, To improve nutrient delivery to tissue, To increase oxygenation perfusion, To improve health of tissue, To decrease soft tissue restriction Thank you for the opportunity to evaluate your patient. For Medicare and Medicare HMO plans, please review the plan of care and approve it. It will need to be FAXED BACK to us at [phone] for Medicare purposes. For Medicare only, by signing this I certify the plan of care. Please let me know if there are questions or concerns regarding this plan of care. Physician Signature: Date:
--- NOTE | 2020-11-13 11:41 | HP.PTDCSUM ---
It has been my pleasure to treat ESTRADA MURO referred by Dr. Leah Trinidad DO, with the diagnosis of COMPLETE TEAR SUPRASPINATOUS TENDON,RIGHT SHOULDER ARTHRITIS for a total of 8 visit(s). Discharge Date: 11/13/20 Please see the following information for a summary of their discharge status. Subjective: Doing good ready for d/c Right Shoulder Pain Intensity (Out of 10): 0 % Improvement: 90 Objective/Function: AROM: shoulder flexion 150 abd 150 degrres. MMT: RTC 4/5 DELTOID 4-/5 Goal 1:: Patient to be I with HEP. Goal Progress: Goal Met Goal 2:: Patient to decrease pain right shoulder 50% or > to improve QOL and function. Goal Progress: Goal Met Goal 3:: Patient increase right shoulder AROM flexion/abd by 145 degrees or> to improve function. Goal Progress: Goal Met Goal 4:: Patient to improve strength RTC 4/5 and deltoid 4-/5 to improve function Goal Progress: Goal Met Goal 5:: Patient to increase quick dash by 5 points or > to improve QOL. Goal Progress: Goal Met Plan: D/C Discharge Comments: HEP If there are questions or concerns regarding this patient's physical therapy, please feel free to call me at [phone]. Thank you for the referral of this patient. Sincerely, Raghavendra Wilson PT, Cert MDT, OCS
== END 2020-11-13 19:00 | disposition home or self-care (01) ==
LOC: PT 11:00
PROVIDERS: PCP Family Medicine; Referring Provider Orthopaedic Surgery; Visit Provider Orthopaedic Surgery
DX: M19.011 Primary osteoarthritis, right shoulder (principal); M75.121 Complete rotator cuff tear or rupture of right shoulder, not specified as traumatic
CPT/HCPCS: 97110; 97162

== ENCOUNTER → 2021-01-19 15:45 | Outpatient (CLI) | payer MEDICARE, OTHER, SELFPAY ==
[2021-01-19 16:25] LABS: CREATININE FINGERSTICK 0.7 mg/dL (0.55-1.02); EGFR FINGERSTICK > 60.0000 mL/min (>60)
--- NOTE | 2021-01-19 16:45 | MRI_ITS ---
STUDY: MRI BRAIN WITH AND WITHOUT CONTRAST (ATTENTION INTERNAL AUDITORY CANALS - I.A.C.''s) REASON FOR EXAM: Female, 80 years old. ATAXIA, vertigo TECHNIQUE: Standardized multiplanar fat and water weighted pulse sequences were obtained. 12ml DOtarem via IV was administered for the contrast portion of the examination. COMPARISON: None. FINDINGS: Normal bilateral temporal bones. Normal bilateral internal auditory canals. There is no demonstrated intracanalicular or cisternal vestibular schwannoma (acoustic neuroma). There is no enhancement of the bilateral VIIth or VIIIth cranial nerves. Normal bilateral cochlea, vestibules and semicircular canals. There is mild cerebral atrophy with widening of the extra-axial spaces and ventricular dilatation. There are a limited number of small white matter hyperintensities, distributed throughout the deep white matter tracts of the cerebral hemispheres, consistent with mild chronic white matter ischemic changes. There is no evidence for recent intracranial ischemia or other cause of cytotoxic edema on diffusion weighted imaging (DWI). Normal bilateral basal ganglia. Normal thalami. Normal flow voids within the major intracranial circulation suggesting patency by spin echo criteria. Normal venous enhancement. There is no enhancing intra-axial or extra-axial abnormality. There is no extra-axial fluid accumulation. Normal sella turcica, pituitary gland, infundibular stalk, optic chiasm and hypothalamus. Normal tectal plate and pineal gland. Normal midbrain, zainab and medulla. Normal cerebellum. Normal basal cisterns. There are bilateral ocular lens implants with otherwise normal intraorbital contents. Normal visualized paranasal sinuses. Normal calvarium and skull base. Normal visualized soft tissue structures. Normal visualized upper cervical spine. MRI/Brain W/WO Contrast IMPRESSION: Involutional changes of the brain, as described above. No MR evidence of vestibular schwannoma (acoustic neuroma). Electronically Signed: Jere Moreira MD at 11:12 EDT Tel , Service support ,
== END ==
PROVIDERS: PCP Family Medicine; Referring Provider Otolaryngology Otolaryngology/Facial Plastic Surgery; Visit Provider Otolaryngology Otolaryngology/Facial Plastic Surgery
DX: R27.0 Ataxia, unspecified (principal)
CPT/HCPCS: 70553; A9575

== ENCOUNTER 2021-03-20 05:00 | Emergency (ER) | payer MEDICARE, OTHER, SELFPAY ==
[2021-03-20 05:01] VITALS: BP 185/103; PULSE 79; RESP 18; TEMP 36.1; O2SAT 98; BMI 20.6
--- NOTE | 2021-03-20 05:07 | CT_ITS ---
HISTORY: Headache, altered mental status EXAMINATION: CT Head or Brain W/O Contrast Injection TECHNIQUE: Multiple axial images were obtained of the brain without intravenous contrast. A radiation dose optimization technique was used for this scan. IV Contrast dosage and agent: None. COMPARISON: None received FINDINGS: BRAIN PARENCHYMA: No intra- or extra-axial hemorrhage. No evidence of acute major territorial infarct. No intracranial mass or mass effect. There is mild hypoattenuation of the deep cerebral white matter. Chronic involutional changes are noted. CSF SPACES: Prominent cerebral sulci secondary to involutional changes. No hydrocephalus. Basal cisterns are patent. CALVARIUM, SKULL BASE, PARANASAL SINUSES AND MASTOID AIR CELLS: Intact calvarium. No acute findings with imaged paranasal sinuses. Mastoid air cells are well pneumatized. ORBITS: No acute findings. CT/Brain/Head without Contrast IMPRESSION: Chronic involutional and white matter changes. No acute intracranial process. Individualized dose optimization techniques were used for this CT. at 0614 Reported and signed by: Sage Levine MD Electronically Signed: Sage Levine MD at 6:13 EDT Tel , Service support ,
[2021-03-20 05:10] VITALS: PULSE 63; RESP 14
--- NOTE | 2021-03-20 05:10 | EX.ED.VIS.HA ---
HPI History of Present Illness Chief Complaint: Headache Informant: patient and spouse/S.O. Onset/Context/Timing Onset: Yesterday Context: Sudden Timing: Continuous Quality -Headache: Positive for Other (Not able to qualitate.) Location: Bifrontal Current Severity: 10/10 Maximum Severity: 10/10 Worsened by: Nothing Relieved by: Nothing Associated Symptoms/Injury Associated Symptoms: Positive for Nausea and Vomiting; Negative for Fever, Sore Throat, Sinus Pressure, Numbness, Tingling, Preceding Aura, Visual Changes, Blurred Vision, Photophobia and Visual Loss Injury - WRIGHT: Negative for Direct Trauma Narrative Narrative: Patient is a 80-year-old woman with history of hypothyroidism and hypertension who presents with bifrontal headache that started 2 days ago. There are no alleviating or exacerbating factors. Patient at times does not seem to understand the question however she is oriented x3. She denies fever but complains of chills. She states she does not feel well. She denies neck pain. Denies trouble with speech or swallowing. She denies cardiac or respiratory symptoms. She states she did have nausea and vomiting. She denies diarrhea. She denies urologic symptoms. She states she feels like things are off. She denies numbness or tingling in her extremities. She denies weakness that is focal. Patient states she saw her primary care physician was placed on methylprednisolone for joint and muscle aches. She states that has improved. She believes he is having an adverse reaction to the methylprednisolone she was prescribed. She does report increased thirst and increased urination. Prior similar symptoms: No Recent Illness/Hospitalization: No PFSH PFS Medical History (Updated 03/20/21 @ 06:[address] Al Bassett MD) Arthritis Enteritis Environmental allergies HTN (hypertension) Hypothyroid Sciatica Home Medications calcium carbonate 500 mg PO DAILY@0800 08/16/13 [History Last Taken 08/08/18 08:00] levothyroxine 88 mcg PO DAILY 08/16/13 [History Last Taken 08/08/18 06:00] lisinopril 20 mg PO BID 08/16/13 [History Last Taken 08/08/18 18:00] omeprazole 20 mg PO QHS 08/08/18 [History Last Taken 08/07/18 23:00] biotin 1,000 mcg PO DAILY 08/25/19 [History Last Taken Unknown] cyanocobalamin (vitamin B-12) 1,000 mcg PO DAILY@0800 08/25/19 [History Last Taken Unknown] ibuprofen 600 mg tablet 600 mg PO Q8H PRN 09/13/19 [History Last Taken Unknown] diclofenac sodium 1 % topical gel g TOPICAL 09/04/20 [History Last Taken Unknown] methylprednisolone mg 03/20/21 [History Last Taken Unknown] nitrofurantoin monohyd/m-cryst 100 mg PO Q12 #10 capsule 03/20/21 [Rx Last Taken Unknown] Allergy/AdvReac Type Severity Reaction Status Date / Time No Known Allergies Allergy Verified 09/10/20 11:40 Surgical History (Updated 03/20/21 @ 05:15 by Brigette Urbano) H/O thyroidectomy History of facial surgery S/P hysterectomy s/p pelvic floor reconstruction Social History (Updated 03/20/21 @ 05:[address] Al Bassett MD) household members: spouse Smoking Status: Never smoker alcohol intake: never substance use type: does not use ROS ROS ED Constitutional Constitutional ED: Reports chills; Denies fever(s), subjective, sweats or weight loss Eyes Eyes: Denies blurry vision, change in vision or diplopia ENT ENT ED: Denies ear pain, rhinorrhea or sore throat Cardiovascular Cardiovascular: Denies chest pain, palpitations or racing heartbeat Respiratory/Chest Respiratory/Chest: Denies cough, dyspnea or dyspnea on exertion Gastrointestinal Gastrointestinal: Reports nausea and vomiting; Denies abdominal pain or diarrhea Genitourinary Genitourinary ED: Denies dysuria, hematuria or urinary frequency Musculoskeletal Musculoskeletal: Reports arthralgias and myalgias; Denies back pain or neck pain Integumentary Denies abscess or rash Neurologic Neurologic: Reports headache(s) and weakness; Denies paresthesias Endocrine Endocrinology: Reports polydipsia and polyuria; Denies polyphagia Hematologic/Lymphatic Hematologic/Lymphatic: Denies easy bleeding or easy bruising EXAM Physical Exam Const Vital Signs: 03/20/21 05:01 03/20/21 05:10 03/20/21 06:18 Temperature 96.9 F L Temperature Source Temporal Pulse Rate 79 63 65 Respiratory Rate 18 14 18 Blood Pressure 185/103 H 187/91 H Blood Pressure Mean 130 123 Pulse Ox 98 97 Oxygen Delivery Method Room Air Room Air Positive well nourished and well developed; Negative for obese, cachectic, contractures or unkempt General Appearance ED: well developed and NAD; Negative for unkempt, cachectic or contractures Nutritional Appearance: Negative for cachectic or obese HEENT Reports normocephalic, TM's clear and moist mucous membranes atraumatic; Negative for temporal artery tenderness or vesicular rash Face and Sinus: Negative for sinus tenderness Tympanic Membrane ED: Yes TM's clear Eyes EOMs intact bilaterally Eyes Narrative: Status post cataract surgery. General Eye ED: Negative for pale conjunctiva or scleral icterus Neck no lymphadenopathy, supple, no meningeal signs and no JVD Resp normal respiratory effort and clear to auscultation bilaterally Auscultation: diminished lung sounds Cardio regular rate, regular rhythm, S1 normal heart sound, S2 normal heart sound and no murmurs GI non-tender and non-distended Auscultation: normoactive bowel sounds Palpation: soft; Negative for hepatomegaly or splenomegaly Back/Spine no CVA tenderness Cervical Spine: Negative for cervical spine tenderness Thoracic Spine / Upper Back: Negative for thoracic spinal tenderness Lumbar Spine / Lower Back: Negative for lumbar spinal tenderness Extremity normal to inspection, full ROM and normal capillary refill Extremity Narrative: There is no asymmetry, swelling, discoloration, leg vein distention, palpable cords or tenderness along the distribution of the deep venous system. Neuro oriented x3, CN's II-XII intact bilaterally and no sensory deficits noted Neuro Narrative: There is no dysmetria. There is no clonus. There is no Babinski sign. Sensorium / Orientation: awake Motor Exam: strength 5/5 throughout Psych Psych Narrative: Affect is flat. Appearance: Negative for unkempt Skin Lesions: no lesions Rashes: no rashes Nails: normal MDM MDM MDM Narrative Medical decision making narrative: With patient complained of polyuria polydipsia since prescribed methylprednisolone concern she may have hyperglycemia due to the systemic steroid. Differential for headache would include sinusitis, tension headache atypical presentation for subarachnoid hemorrhage. Since she is elderly and complains of abrupt onset headache with nausea vomiting CT of the head was obtained. Lab Data Attestation: I reviewed the patient's lab results. Lab results narrative: White count differential unremarkable. Electrolyte panels marked for slight elevation glucose of 128 otherwise unremarkable. Urine is consistent with infection. Urine culture was obtained and patient was treated with dose of Rocephin in the emergency department and discharged to home with prescription for ciprofloxacin. Labs: Laboratory Results - last 24 hr 03/20/21 03/20/21 03/20/21 05:10 05:10 05:57 WBC 9.4 RBC 4.09 L Hgb 12.7 Hct 38.7 MCV 94.6 MCH 31.1 MCHC 32.8 RDW Std Deviation 44.2 H RDW Coeff of Cassandra 12.7 Plt Count 202 MPV 11.7 Immature Gran % (Auto) 0.200 Neut % (Auto) 70.0 Lymph % (Auto) 23.4 [place] % (Auto) 5.9 Eos % (Auto) 0.2 Baso % (Auto) 0.3 Absolute Neuts (auto) 6.6 Absolute Lymphs (auto) 2.19 Nucleated RBC % 0 Sodium 140 Potassium 3.2 L Chloride 104 Carbon Dioxide 30.0 Anion Gap 6 BUN 17 Creatinine 0.74 Estim Creat Clear Calc 43.70 Est GFR (MDRD) Af Amer 98 Est GFR (MDRD) Non-Af 81 BUN/Creatinine Ratio 23.1 H Glucose 128 H Calcium 8.8 Total Bilirubin 0.30 AST 18 ALT 18 Alkaline Phosphatase 57 Total Protein 7.3 Albumin 4.0 Globulin 3.3 Albumin/Globulin Ratio 1.2 Urine Color Yellow Urine Clarity Sl. Cloudy Urine pH 8.0 Ur Specific [place] 1.015 Urine Protein 15 H Urine Glucose (UA) Normal Urine Ketones Negative Urine Occult Blood Negative Urine Nitrite Negative Urine Bilirubin Negative Urine Urobilinogen Normal Ur Leukocyte Esterase 100 H Urine RBC 0 SEEN Urine WBC 0-5 SEEN Ur Squamous Epith Cells 0-5 SEEN Urine Bacteria 3+ Urine Mucus 0 SEEN Radiography Diagnostic Testing: Radiology Impression Brain CT 03/20/21 05:07 IMPRESSION: Chronic involutional and white matter changes. No acute intracranial process. Individualized dose optimization techniques were used for this CT. at 0614 Reported and signed by: Sage Levine MD Electronically Signed: Sage Levine MD at 6:13 EDT Tel , Service support , CT of the head was reviewed by me at 0532. There is no acute process. There is no evidence of sinusitis. Awaiting formal read by radiologist. Discharge Plan Triage Chief Complaint: Headache ED Provider: Al Bassett Dx/Rx/DC Orders Clinical Impression: Headache above the eye region, Insomnia due to drug, Urinary tract infection Instructions: ED Pain, Acute, Uncertain Cause, ED CYSTITIS Female Adult Prescriptions: New nitrofurantoin monohyd/m-cryst [nitrofurantoin monohyd/m-cryst] 100 MG capsule 100 mg PO Q12 Qty: 10 RF: 0 No Action ibuprofen 600 mg tablet 600 mg PO Q8H PRN (Reason: Pain) RF: 0 diclofenac sodium 1 % gel TOPICAL RF: 0 lisinopril 20 MG tablet 20 mg PO BID RF: 0 levothyroxine 100 MCG tablet 88 mcg PO DAILY RF: 0 calcium carbonate 500 MG tablet 500 mg PO DAILY@0800 RF: 0 omeprazole 20 MG tablet,delayed release (DR/EC) 20 mg PO QHS RF: 0 cyanocobalamin (vitamin B-12) 500 MCG tablet 1,000 mcg PO DAILY@0800 RF: 0 biotin 1,000 MCG tablet,chewable 1,000 mcg PO DAILY RF: 0 methylprednisolone 4 mg tablets,dose pack RF: 0 Primary Care Provider: Antonella Loyola Referrals: Antonella Loyola DO [Primary Care Provider] - 3-5 Days Disposition Disposition: Home, Self Care
[2021-03-20 05:19] LABS: Absolute Lymphocyte Count 2.19 X10^3/uL (0.83-4.51); Absolute Neutrophil Count 6.6 X10^3/uL (2.0-7.7); Basophil# 0.03 X10^3/uL; Basophil% 0.3 % (0-1); Eosinophil# 0.02 X10^3/uL; Eosinophils% 0.2 % (0-5); Hematocrit 38.7 % (37-47); Hemoglobin 12.7 g/dL (12.0-15.0); Lymphocyte # 2.19 X10^3/ul (0.83-4.51); Lymphocyte % 23.4 % (19-41); Mean Corp Hgb Conc 32.8 g/dL (32-36); Mean Corpuscular Hgb 31.1 pg (27.0-32.0); Mean Corpuscular Volume 94.6 fL (81-99); Mean Platelet Vol. 11.7 fl (6.2-12.0); Monocyte# 0.55 X10^3/uL; Monocyte% 5.9 % (0-10); NRBC Flagged by Analyzer 0 % (0-5); Neutrophil # 6.55 X10^3/uL (2.7-7.7); Platelet Count 202 K/mm3 (150-450); RBC Distribution Width CV 12.7 % (11.6-14.6); RBC Distribution Width SD 44.2 fl (35.1-43.9); Red Blood Count 4.09 M/mm3 (4.2-5.4); White Blood Count 9.4 K/mm3 (4.4-11.0)
[2021-03-20] MEDS: Ondansetron 4 MG/2 ML Vial IV (05:50)
[2021-03-20] MEDS: Morphine 2 MG/ML Syringe IV (05:50)
[2021-03-20 05:59] LABS: Mucous, Urine 0 SEEN /hpf (<or=2+); Red Blood Cells-Urine 0 SEEN /hpf (0-5)
[2021-03-20 06:10] LABS: Color, Urine Yellow (Yellow); Glucose, Dipstick Normal (Normal); Ketone-Dipstick Negative (Negative); Leukocyte Esterase-Dipstick 100 /ul (Negative); Nitrite-Dipstick Negative (Negative); Occult Blood-Urine Negative /ul (Negative); Protein-Dipstick 15 mg/dl (Negative); Specific Gravity, Urine 1.015 (1.002-1.030); Urine Bilirubin Dipstick Negative (Negative); Urine Clarity Sl. Cloudy (Clear); Urine Urobilinogen Normal (Normal)
[2021-03-20 06:11] LABS: ALB/GLOB Ratio 1.2 RATIO (0.9-2.4); AST(SGOT) 18 U/L (15-37); Alanine Aminotransfer ALT/SGPT 18 U/L (13-56); Alkaline Phosphatase 57 U/L (45-117); Anion Gap 6 (5-15); BUN 17 mg/dL (7-18); BUN/Creat Ratio 23.1 RATIO (10-20); Calcium,Total 8.8 mg/dL (8.5-10.1); Chloride 104 mmol/L (98-107); Creatinine, Serum 0.74 mg/dL (0.55-1.02); EST Glomerular Filtration Rate 81 mL/min (>60); Est Glom Filt Rate - Afr Amer 98 mL/min (>60); Globulin 3.3 g/dL (2.2-4.2); Glucose 128 mg/dL (74-106); Potassium 3.2 mmol/L (3.5-5.1); Protein, Total 7.3 g/dL (6.4-8.2); Sodium Level 140 mmol/L (136-145)
[2021-03-20 06:18] VITALS: BP 187/91; PULSE 65; RESP 18; O2SAT 97
[2021-03-20 06:24] LABS: Bacteria 3+ /hpf (None Seen)
[2021-03-20 06:25] LABS: Squamous Epithelial Cells - UA 0-5 SEEN /hpf (5-10); White Blood Cells 0-5 SEEN /hpf (0-5)
[2021-03-20] MEDS: Ceftriaxone 1 GM/50 ML BAG IV (07:13)
[2021-03-20 07:55] VITALS: BP 175/97; PULSE 61; RESP 16; O2SAT 96
== END 2021-03-20 07:59 | disposition home or self-care (01) ==
PROVIDERS: Emergency Provider Emergency Medicine; PCP Family Medicine
DX: N39.0 Urinary tract infection, site not specified (principal); R51.9 Headache, unspecified; R11.2 Nausea with vomiting, unspecified; I10 Essential (primary) hypertension; E89.0 Postprocedural hypothyroidism; M19.90 Unspecified osteoarthritis, unspecified site; G47.00 Insomnia, unspecified; Z79.890 Hormone replacement therapy; Z79.899 Other long term (current) drug therapy; Z79.52 Long term (current) use of systemic steroids
CPT/HCPCS: 70450; 80053; 81001; 85025; 87086; 96365; 96375; 99284; J7050; A4216; J2405

== ENCOUNTER → 2022-01-01 | Outpatient (CLI) | payer MEDICARE, OTHER, SELFPAY ==
[2022-01-01 12:13] LABS: Color, Urine Yellow (Yellow); Glucose, Dipstick Normal (Normal); Ketone-Dipstick Negative (Negative); Leukocyte Esterase-Dipstick 25 /ul (Negative); Nitrite-Dipstick Negative (Negative); Occult Blood-Urine Negative /ul (Negative); Protein-Dipstick Negative (Negative); Specific Gravity, Urine 1.015 (1.002-1.030); Urine Bilirubin Dipstick Negative (Negative); Urine Clarity Sl. Cloudy (Clear); Urine Urobilinogen Normal (Normal); Urine pH 6.5 (5.0 - 8.0)
[2022-01-01 12:28] LABS: Absolute Lymphocyte Count 1.64 X10^3/uL (0.83-4.51); Absolute Neutrophil Count 3.6 X10^3/uL (2.0-7.7); Basophil# 0.04 X10^3/uL; Basophil% 0.7 % (0-1); Eosinophil# 0.11 X10^3/uL; Eosinophils% 1.8 % (0-5); Erythrocyte Sedimentation Rate 16 mm/hr (0-30); Hemoglobin 11.2 g/dL (12.0-15.0); Lymphocyte # 1.64 X10^3/ul (0.83-4.51); Lymphocyte % 27.5 % (19-41); Mean Corpuscular Hgb 31.4 pg (27.0-32.0); Mean Platelet Vol. 12.7 fl (6.2-12.0); Monocyte# 0.54 X10^3/uL; NRBC Flagged by Analyzer 0 % (0-5); Neutrophil # 3.62 X10^3/uL (2.7-7.7); Neutrophil % 60.7 % (47-70); Platelet Count 184 K/mm3 (150-450); RBC Distribution Width CV 13.1 % (11.6-14.6); RBC Distribution Width SD 47.1 fl (35.1-43.9); Red Blood Count 3.57 M/mm3 (4.2-5.4)
[2022-01-01 12:42] LABS: BUN 22 mg/dL (7-18); Creatinine, Serum 0.88 mg/dL (0.55-1.02); EST Glomerular Filtration Rate 66 mL/min (>60); Glucose 81 mg/dL (74-106)
[2022-01-01 12:43] LABS: AST(SGOT) 18 U/L (15-37); Alanine Aminotransfer ALT/SGPT 20 U/L (13-56); Albumin, Serum 3.4 g/dL (3.2-5.0); Alkaline Phosphatase 56 U/L (45-117); Anion Gap 4 (5-15); CRP < 2.90 mg/L (0.0-3.0); Calcium,Total 8.8 mg/dL (8.5-10.1); Chloride 107 mmol/L (98-107); Est Glom Filt Rate - Afr Amer 80 mL/min (>60); Free T3 2.3 pg/mL (2.18-3.98); Globulin 3.3 g/dL (2.2-4.2); Potassium 4.1 mmol/L (3.5-5.1); Protein, Total 6.7 g/dL (6.4-8.2); Sodium Level 140 mmol/L (136-145); T4 Free Direct 1.25 ng/dL (0.76-1.46); Thyroid Stim Hormone (TSH) 0.22 uIU/mL (0.358-3.74); Uric Acid 4.7 mg/dL (2.6-6.0)
[2022-01-01 14:21] LABS: Mucous, Urine 0 SEEN /hpf (<or=2+); Red Blood Cells-Urine 0 SEEN /hpf (0-5)
[2022-01-01 14:48] LABS: Bacteria 1+ /hpf (None Seen); Squamous Epithelial Cells - UA 0-5 SEEN /hpf (5-10); White Blood Cells 0-5 SEEN /hpf (0-5)
== END | disposition home or self-care (01) ==
LOC: MTLAB 09:48
PROVIDERS: PCP Family Medicine; Referring Provider Family Medicine; Visit Provider Family Medicine
DX: E03.9 Hypothyroidism, unspecified (principal); R60.9 Edema, unspecified; M25.50 Pain in unspecified joint; R35.0 Frequency of micturition; Z51.81 Encounter for therapeutic drug level monitoring
CPT/HCPCS: 36415; 80053; 81001; 81002; 84439; 84443; 84481; 84550; 85025; 85652; 86140; 87077; 87086; 87088

== ENCOUNTER → 2022-01-21 | Outpatient (CLI) | payer MEDICARE, OTHER, SELFPAY | END | disposition home or self-care (01) | LOC: LABSPEC 15:09 | PROVIDERS: PCP Family Medicine; Visit Provider Family Medicine | DX: N39.0 Urinary tract infection, site not specified (principal) | CPT/HCPCS: 87086; 87088 ==

== ENCOUNTER → 2022-01-28 | Outpatient (CLI) | payer MEDICARE, OTHER, SELFPAY ==
--- NOTE | 2022-01-28 09:57 | VDLE_ITS ---
Reason For Study: edema Procedure LEFT This is a venous duplex using B-mode, color CFV is compressible, spontaneous, phasic, flow and spectral Doppler. competent, and demonstrates normal Exam performed in department. augmentation. The exam was abbreviated due to the COVID 19 FV is compressible, spontaneous, phasic, protocol. competent and demonstrates normal The exam was diagnostic. augmentation. A preliminary report was called and/or faxed POP V is compressible, spontaneous, phasic, to Dr. Loyola. competent and demonstrates normal augmentation. T/P Trunk is compressible. PTV is compressible. LT PerV is compressible. SFJ is competent and measures .44 cm. GSV proximal thigh measures .19 x .22 cm. GSV at knee measures .16 x .17 cm. GSV is competent throughout. SSV proximal calf is INCOMPETENT for greater than 0.5 seconds and measures .17 x .19 cm. VL/Venous Duplex US, Unilateral Interpretation Summary Deep veins of the left lower extremity are patent and compressible segmentally. There is no evidence of left lower extremity deep vein thrombosis. Valvular competence appears intac t within the proximal deep venous system on the left . The left great saphenous vein appears patent a nd compressible segmentally. The left sapheno-femoral junction is competent . The left great sa phenous vein appears segmentally competent. The left small saphenous vein is patent and incompetent. Ordering Physician: Antonella Loyola Performed By: Emre Gomes RVT
== END | disposition home or self-care (01) ==
LOC: CVS 09:53
PROVIDERS: PCP Family Medicine; Referring Provider Family Medicine; Visit Provider Family Medicine
DX: R60.0 Localized edema (principal); I87.2 Venous insufficiency (chronic) (peripheral)
CPT/HCPCS: 93971

== ENCOUNTER → 2022-04-22 | Outpatient (CLI) | payer MEDICARE, OTHER, SELFPAY | END | disposition home or self-care (01) | PROVIDERS: PCP Family Medicine; Visit Provider Family Medicine | DX: R30.0 Dysuria (principal) | CPT/HCPCS: 87086; 87088 ==

== ENCOUNTER 2022-05-27 18:02 | Emergency (ER) | payer MEDICARE, OTHER, SELFPAY ==
[2022-05-27 18:03] VITALS: BP 153/89; PULSE 91; RESP 18; TEMP 36.6; O2SAT 97; BMI 20.9
[2022-05-27 18:51] VITALS: BP 133/72; PULSE 84; RESP 14; O2SAT 96
[2022-05-27 18:59] VITALS: BMI 21.8
--- NOTE | 2022-05-27 19:10 | EX.ED.VIS.HA ---
HPI History of Present Illness Chief Complaint: Headache Informant: patient Onset/Context/Timing Onset: Today Context: Sudden Timing: Continuous Quality -Headache: Positive for Dull Location: Frontal Worsened by: Nothing Relieved by: Nothing Associated Symptoms/Injury Associated Symptoms: Positive for Sore Throat; Negative for Fever, Nausea, Vomiting, Sinus Pressure, Numbness, Tingling, Preceding Aura, Visual Changes, Blurred Vision, Photophobia or Visual Loss Narrative Narrative: Patient presents with headache that began today. Patient states it began rather suddenly. Patient states it has been constant throughout the day today. Patient describes it as dull. Patient states it is over the frontal area. Patient states nothing makes it worse and nothing makes it better. Patient admits to a sore throat. Patient denies any nausea or vomiting. Patient denies any fevers or chills. Patient denies any paresthesias or weakness. Patient denies any visual changes or photophobia. Patient states that last week she was having some pain in her left hip and flank area. Patient saw her primary care physician for this. Patient denies any urinary complaints. [facility] Medical History Arthritis Enteritis Environmental allergies HTN (hypertension) Hypothyroid Sciatica Home Medications calcium carbonate 500 mg calcium (1,250 mg) tablet 500 mg PO DAILY@0800 supplement 08/16/13 [History Last Taken 08/08/18 08:00] levothyroxine 100 mcg tablet 88 mcg PO DAILY thyroid 08/16/13 [History Last Taken 08/08/18 06:00] lisinopril 20 mg tablet 20 mg PO BID htn 08/16/13 [History Last Taken 08/08/18 18:00] cyanocobalamin (vitamin B-12) 500 mcg tablet 1,000 mcg PO DAILY@0800 08/25/19 [History Last Taken Unknown] ibuprofen 600 mg tablet 600 mg PO Q8H PRN Pain 09/13/19 [History Last Taken Unknown] aspirin 81 mg tablet,delayed release 81 mg PO DAILY 05/27/22 [History Last Taken Unknown] nirmatrelvir 300 mg (150 mg x2)-ritonavir 100 mg tablet,dose pack(EUA) (Paxlovid) See Rx Instructions PO .COMPLEX #30 tabs 05/27/22 [Rx Last Taken Unknown] Allergy/AdvReac Type Severity Reaction Status Date / Time No Known Allergies Allergy Verified 05/27/22 18:03 Surgical History H/O thyroidectomy History of facial surgery S/P hysterectomy s/p pelvic floor reconstruction Social History household members: spouse Smoking Status: Never smoker alcohol intake: never substance use type: does not use ROS ROS ED Constitutional Constitutional ED: Denies chills or fever(s) Eyes Eyes: Denies blurry vision or change in vision ENT ENT ED: Denies rhinorrhea or sore throat Cardiovascular Cardiovascular: Denies chest pain or palpitations Respiratory/Chest Respiratory/Chest: Denies cough or dyspnea Gastrointestinal Gastrointestinal: Denies nausea or vomiting Genitourinary Genitourinary ED: Denies dysuria or hematuria Musculoskeletal Musculoskeletal: Reports back pain; Denies neck pain Integumentary Denies abscess or rash Neurologic Neurologic: Reports headache(s); Denies weakness Allergic/Immunologic Allergic/Immunologic ED: Denies mouth swelling or urticaria EXAM Physical Exam Const Vital Signs: 05/27/22 18:03 05/27/22 18:51 05/27/22 18:53 Temperature 97.8 F Temperature Source Temporal Pulse Rate 91 84 Respiratory Rate 18 14 Respiratory Effort Normal Non-Labored Respiratory Pattern Normal Blood Pressure 153/89 H 133/72 H Blood Pressure Mean 110 92 Pulse Ox 97 96 Oxygen Delivery Method Room Air Room Air Positive well nourished and well developed General Appearance ED: well developed and NAD HEENT Reports moist mucous membranes Neck supple and no JVD Resp normal respiratory effort and clear to auscultation bilaterally Cardio regular rate, regular rhythm and no murmurs GI normal to inspection, nondistended, normoactive bowel sounds and non-tender Palpation: soft Extremity normal to inspection General Extremety ED: Negative for edema or tenderness General Extremity: Negative for edema Neuro oriented x3, CN's II-XII intact bilaterally and no sensory deficits noted Sensorium / Orientation: alert Motor Exam: strength 5/5 throughout Psych mental status grossly normal Skin no rashes or lesions noted MDM MDM MDM Narrative Medical decision making narrative: Patient was given IV fluids, Reglan, and Benadryl. CT scan of the brain was obtained. There is no acute intracranial abnormality. This was interpreted by the radiologist and reviewed by myself. CBC shows a mild anemia with a hemoglobin of 11.5 and hematocrit of 34.4. Basic metabolic profile was within normal limits. Urinalysis does not show any evidence of urinary tract infection or hematuria. Patient is still complaining of a headache on reevaluation. Patient was given a dose of morphine while here. COVID-19 rapid antigen was obtained and was positive. Influenza A and influenza B swabs were obtained and were negative. Patient was advised of her findings. Patient was given a prescription for Paxlovid. Patient was instructed to follow-up with her primary care physician in 5 to 7 days. Patient is given COVID-19 precautions. Patient and son understood and were agreeable with the plan. All questions were answered. Lab Data Attestation: I reviewed the patient's lab results. Labs: Laboratory Results - last 24 hr 05/27/22 05/27/22 05/27/22 19:25 19:25 19:50 WBC 6.0 RBC 3.59 L Hgb 11.5 L Hct 34.4 L MCV 95.8 MCH 32.0 MCHC 33.4 RDW Std Deviation 46.7 H RDW Coeff of Cassandra 13.2 Plt Count 205 MPV 11.1 Immature Gran % (Auto) 0.300 Neut % (Auto) 81.2 H Lymph % (Auto) 5.6 L [place] % (Auto) 10.6 H Eos % (Auto) 2.0 Baso % (Auto) 0.3 Absolute Neuts (auto) 4.9 Absolute Lymphs (auto) 0.34 L Nucleated RBC % 0 Differential Comment SCANNED Sodium 138 Potassium 3.5 Chloride 102 Carbon Dioxide 29.0 Anion Gap 7 BUN 17 Creatinine 0.92 Estim Creat Clear Calc 48.22 Est GFR (MDRD) Af Amer 76 Est GFR (MDRD) Non-Af 63 BUN/Creatinine Ratio 18.5 Glucose 108 H Calcium 9.1 Urine Color Yellow Urine Clarity Clear Urine pH 7.0 Ur Specific [place] 1.010 Urine Protein Negative Urine Glucose (UA) Normal Urine Ketones 5 H Urine Occult Blood Negative Urine Nitrite Negative Urine Bilirubin Negative Urine Urobilinogen Normal Ur Leukocyte Esterase Negative Urine RBC 0 SEEN Urine WBC 0 SEEN Ur Squamous Epith Cells 0 SEEN Urine Bacteria 0 SEEN Urine Mucus 0 SEEN Radiography Diagnostic Testing: Clinical Impression(s) from Imaging Studies Brain CT 11/03/22 19:13 IMPRESSION: No acute intracranial abnormality. Chronic involutional and ischemic changes of the brain. Electronically Signed: Wallace Roland MD at 20:14 EDT , Discharge Plan Triage Chief Complaint: Headache ED Provider: Edgar Murillo Dx/Rx/DC Orders Clinical Impression: COVID-19, Headache Instructions: Coronavirus Disease 2019 (COVID-19): Caring for Yourself or Others, ED Headache Unspecified Prescriptions: New Paxlovid (EUA) 300 mg (150 mg x 2)-100 mg tablets,dose pack See Rx Instructions .ROUTE .COMPLEX Qty: 30 0RF Rx Instructions: take TWO 150 mg tablets of nirmatrelvir with ONE 100 mg tablet of ritonavir twice daily for 5 days No Action ibuprofen 600 mg tablet 600 mg PO Q8H PRN (Reason: Pain) lisinopril 20 MG tablet 20 mg PO BID levothyroxine 100 MCG tablet 88 mcg PO DAILY calcium carbonate 500 MG tablet 500 mg PO DAILY@0800 cyanocobalamin (vitamin B-12) 500 MCG tablet 1,000 mcg PO DAILY@0800 aspirin [Aspir-81] 81 mg Tablet,Delayed Release (Dr/Ec) 81 mg PO DAILY Primary Care Provider: Antonella Loyola Referrals: Antonella Loyola DO [Primary Care Provider] - 5-7 Days Disposition Disposition: Home, Self Care
--- NOTE | 2022-05-27 19:13 | CT_ITS ---
EXAMINATION : Head CT w/out contrast HISTORY : Headache COMPARISON : 03/20/2021. TECHNIQUE : Multiple contiguous axial images were obtained from the skull base to the vertex without intravenous contrast. A radiation dose optimization technique was used for this scan. FINDINGS : There is no evidence for acute intracranial hemorrhage, mass effect, or midline shift. There is no extra-axial fluid collection. There are periventricular white matter changes consistent with chronic microvascular ischemic disease. There is sulcal widening and ventricular enlargement consistent with cerebral atrophy. There is normal lau-white differentiation, without CT evidence of acute ischemia or infarct. The skull base and calvarium are unremarkable. The orbits are unremarkable. The paranasal sinuses are clear. The mastoid air cells are well-aerated. The soft tissues are unremarkable. CT/Brain/Head without Contrast IMPRESSION: No acute intracranial abnormality. Chronic involutional and ischemic changes of the brain. Electronically Signed: Wallace Roland MD at 20:14 EDT ,
[2022-05-27 19:39] LABS: Absolute Lymphocyte Count 0.34 X10^3/uL (0.83-4.51); Absolute Neutrophil Count 4.9 X10^3/uL (2.0-7.7); Basophil# 0.02 X10^3/uL; Basophil% 0.3 % (0-1); Eosinophil# 0.12 X10^3/uL; Hematocrit 34.4 % (37-47); Hemoglobin 11.5 g/dL (12.0-15.0); Lymphocyte # 0.34 X10^3/ul (0.83-4.51); Lymphocyte % 5.6 % (19-41); Mean Corp Hgb Conc 33.4 g/dL (32-36); Mean Corpuscular Volume 95.8 fL (81-99); Mean Platelet Vol. 11.1 fl (6.2-12.0); Monocyte# 0.64 X10^3/uL; Monocyte% 10.6 % (0-10); NRBC Flagged by Analyzer 0 % (0-5); Neutrophil % 81.2 % (47-70); POSITIVE DIFFERENTIAL YES; Platelet Count 205 K/mm3 (150-450); RBC Distribution Width CV 13.2 % (11.6-14.6); RBC Distribution Width SD 46.7 fl (35.1-43.9); Red Blood Count 3.59 M/mm3 (4.2-5.4)
[2022-05-27] MEDS: 0.9% Normal Saline 1,000 ML 1000 ML IV (19:44)
[2022-05-27] MEDS: Metoclopramide 10 MG/2 ML Vial IV (19:44)
[2022-05-27] MEDS: DiphenhydrAMINE 50 MG/ML Syringe 25 MG IV (19:44)
[2022-05-27 19:50] LABS: Differential Indicated SCAN CRITERIA MET
[2022-05-27 19:54] LABS: Anion Gap 7 (5-15); BUN 17 mg/dL (7-18); BUN/Creat Ratio 18.5 RATIO (10-20); Calcium,Total 9.1 mg/dL (8.5-10.1); Chloride 102 mmol/L (98-107); Creatinine, Serum 0.92 mg/dL (0.55-1.02); EST Glomerular Filtration Rate 63 mL/min (>60); Est Glom Filt Rate - Afr Amer 76 mL/min (>60); Estimated Creatinine Clearance 48.22 ml/min; Glucose 108 mg/dL (74-106); Potassium 3.5 mmol/L (3.5-5.1); Sodium Level 138 mmol/L (136-145)
[2022-05-27 20:00] LABS: Bacteria 0 SEEN /hpf (None Seen); Mucous, Urine 0 SEEN /hpf (<or=2+); Red Blood Cells-Urine 0 SEEN /hpf (0-5); Squamous Epithelial Cells - UA 0 SEEN /hpf (5-10); White Blood Cells 0 SEEN /hpf (0-5)
[2022-05-27 20:02] LABS: Color, Urine Yellow (Yellow); Glucose, Dipstick Normal (Normal); Ketone-Dipstick 5 mg/dl (Negative); Leukocyte Esterase-Dipstick Negative /ul (Negative); Nitrite-Dipstick Negative (Negative); Occult Blood-Urine Negative /ul (Negative); Protein-Dipstick Negative (Negative); Urine Bilirubin Dipstick Negative (Negative); Urine Clarity Clear (Clear); Urine Urobilinogen Normal (Normal)
[2022-05-27 20:18] LABS: Differential Comment SCANNED
[2022-05-27] MEDS: Morphine 2 MG/ML Syringe IV (21:58)
[2022-05-27 22:06] VITALS: BP 145/72; PULSE 78; RESP 16; O2SAT 94
[2022-05-27 22:19] VITALS: BP 145/72; PULSE 76; RESP 16; O2SAT 96
== END 2022-05-27 22:20 | disposition home or self-care (01) ==
PROVIDERS: Emergency Provider Emergency Medicine; PCP Family Medicine; Visit Provider Emergency Medicine
DX: U07.1 COVID-19 (principal); R51.9 Headache, unspecified; D64.9 Anemia, unspecified; M25.552 Pain in left hip; I10 Essential (primary) hypertension; E03.9 Hypothyroidism, unspecified; Z79.82 Long term (current) use of aspirin; Z79.890 Hormone replacement therapy; Z79.899 Other long term (current) drug therapy
CPT/HCPCS: 70450; 80048; 81001; 85025; 87428; 96361; 96374; 96375; 99285; J7030; A4216

== ENCOUNTER → 2022-11-13 | Outpatient (CLI) | payer MEDICARE, OTHER, SELFPAY ==
--- NOTE | 2022-11-13 08:31 | MRI_ITS ---
STUDY: MRI LUMBAR SPINE WITHOUT CONTRAST REASON FOR EXAM: Female, 82 years old patient with low back pain, left hip, leg, back pain and history of thyroid cancer. TECHNIQUE: Standardized fat and water weighted pulse sequences were obtained in the sagittal and axial planes. COMPARISON: None FINDINGS: T12-L1: Normal endplates. Normal disc height, signal and morphology. Normal bilateral facet joints. Normal central canal and bilateral lateral recesses. Normal bilateral intervertebral neural foramina. There is an exaggerated lumbar lordosis. There is a grade 1 spondylolisthesis at L4-5. There is no substantial scoliosis. Normal conus medullaris that terminates at the T12-L1 level. L1-2: Normal endplates. Normal disc height, signal and morphology. Normal bilateral facet joints. Normal central canal and bilateral lateral recesses. Normal bilateral intervertebral neural foramina. L2-3: Normal endplates. Normal disc height, hydration and morphology. Normal bilateral facet joints. Normal central canal and bilateral lateral recesses. Normal bilateral intervertebral neural foramina. L3-4: There is moderately large annular disk bulge and osteophyte complex. There is moderately severe degenerative arthropathy of the facet joints. Bilateral neuroforamina are narrowed without MR evidence for nerve impingement. There is thickening of ligamentum flavum. There is moderate acquired central canal stenosis. L4-5: There is uncovering of the disc secondary to anterolisthesis. There is a severe degenerative arthropathy of the facet joints. There is severe central acquired canal stenosis. Neural foramina are severely narrowed with potential impingement of the L4 nerve roots of the neural foramina. There is potential impingement of L5 nerve roots at the lateral recesses. L5-S1: There is narrowing of the disc. There is mild annular disk bulge and osteophyte complex. There is moderately severe degenerative arthropathy of the facet joints. Bilateral neuroforamina are narrowed without MR evidence for nerve impingement. There is no appreciable acquired central canal stenosis. There is a heterogeneous abnormal signal throughout the imaged thoracic and lumbar vertebral bodies. This could be secondary to reactivated hematopoietic marrow in a background of fatty infiltration of the marrow. Normal visualized sacral ala. Normal visualized paraspinous soft tissue structures. MRI/Spine Lumbar (Routine) IMPRESSION: 1. Grade 1 spondylolisthesis at L4-5. This is apparently secondary to severe degenerative arthropathy. 2. 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 3. Abnormal marrow signal. Electronically Signed: Kayleigh Jaquez MD at 5:47 EDT ,
== END | disposition home or self-care (01) ==
LOC: MRI 08:27
PROVIDERS: PCP Family Medicine; Referring Provider Orthopaedic Surgery; Visit Provider Orthopaedic Surgery
DX: M43.10 Spondylolisthesis, site unspecified (principal)
CPT/HCPCS: 72148

== ENCOUNTER → 2023-01-19 | Outpatient (CLI) | payer MEDICARE, OTHER, SELFPAY ==
[2023-01-19 11:06] LABS: Absolute Lymphocyte Count 1.59 X10^3/uL (0.83-4.51); Absolute Neutrophil Count 3.4 X10^3/uL (2.0-7.7); Basophil# 0.06 X10^3/uL; Basophil% 1.1 % (0-1); Eosinophil# 0.07 X10^3/uL; Eosinophils% 1.3 % (0-5); Hematocrit 36.8 % (37-47); Hemoglobin 11.8 g/dL (12.0-15.0); Lymphocyte # 1.59 X10^3/ul (0.83-4.51); Lymphocyte % 28.8 % (19-41); Mean Corp Hgb Conc 32.1 g/dL (32-36); Mean Corpuscular Hgb 32.1 pg (27.0-32.0); Mean Platelet Vol. 11.5 fl (6.2-12.0); Monocyte% 7.2 % (0-10); NRBC Flagged by Analyzer 0 % (0-5); Neutrophil % 61.4 % (47-70); Platelet Count 240 K/mm3 (150-450); RBC Distribution Width CV 13.7 % (11.6-14.6); RBC Distribution Width SD 50.5 fl (35.1-43.9); Red Blood Count 3.68 M/mm3 (4.2-5.4); White Blood Count 5.5 K/mm3 (4.4-11.0)
[2023-01-19 11:31] LABS: Vitamin B12 1610 pg/mL (211-911)
[2023-01-19 11:32] LABS: ALB/GLOB Ratio 0.9 RATIO (0.9-2.4); AST(SGOT) 18 U/L (15-37); Alanine Aminotransfer ALT/SGPT 15 U/L (13-56); Albumin, Serum 3.2 g/dL (3.2-5.0); Alkaline Phosphatase 58 U/L (45-117); Anion Gap 3 (5-15); BUN 19 mg/dL (7-18); BUN/Creat Ratio 20.4 RATIO (10-20); Chloride 107 mmol/L (98-107); Cholesterol 208 mg/dL (200); Creatinine, Serum 0.93 mg/dL (0.55-1.02); EST Glomerular Filtration Rate 61 mL/min (>60); Est Glom Filt Rate - Afr Amer 74 mL/min (>60); Free T3 1.7 pg/mL (2.18-3.98); Globulin 3.6 g/dL (2.2-4.2); Glucose 79 mg/dL (74-106); High Density Lipoprotein 79 mg/dL; Protein, Total 6.8 g/dL (6.4-8.2); Sodium Level 139 mmol/L (136-145); T4 Free Direct 0.89 ng/dL (0.76-1.46); Thyroid Stim Hormone (TSH) 1.87 uIU/mL (0.358-3.74); Triglycerides 67 mg/dL; Very Low Density Lipoprotein 13 mg/dL (5-40)
== END | disposition home or self-care (01) ==
LOC: MTLAB 08:41
PROVIDERS: PCP Family Medicine; Referring Provider Family Medicine; Visit Provider Family Medicine
DX: E03.9 Hypothyroidism, unspecified (principal); E78.5 Hyperlipidemia, unspecified; E53.8 Deficiency of other specified B group vitamins; Z51.81 Encounter for therapeutic drug level monitoring
CPT/HCPCS: 36415; 80053; 80061; 82607; 84439; 84443; 84481; 85025

== ENCOUNTER 2023-02-14 11:56 | Observation (INO) | payer MEDICARE, OTHER, SELFPAY ==
[2023-02-14 11:56] VITALS: BP 167/93; PULSE 72; RESP 18; TEMP 36.7; O2SAT 97; BMI 22.7
--- NOTE | 2023-02-14 13:03 | CT_ITS ---
STUDY: CT BRAIN WITHOUT CONTRAST REASON FOR EXAM: Female, 82 years old. Nausea and vomiting. Hypertension. History of thyroid carcinoma. RADIATION DOSAGE (If Supplied By Facility): CTDIvol = ( 47.06 ) mGy, DLP = ( 855.03 ) mGycm TECHNIQUE: Transaxial CT imaging of the brain was performed without administration of intravenous contrast material. Individualized dose optimization techniques were used for this CT. COMPARISON: Comparison is made with prior examination dated May 27, 2022. FINDINGS: Normal soft tissue structures. There is hyperostosis frontalis internus. There is mild cerebral atrophy with widening of the extra-axial spaces and ventricular dilatation. There are areas of decreased attenuation within the white matter tracts of the supratentorial brain, consistent with microvascular disease changes. Normal basal ganglia and thalami. Normal brainstem. Normal cerebellum. There is no intracranial hemorrhage. There are no findings of an acute ischemic infarction. Normal visualized paranasal sinuses. CT/Brain/Head without Contrast IMPRESSION: Chronic involutional changes of the brain. Stable examination. Electronically Signed: Yang Bolden MD at 13:57 EDT ,
--- NOTE | 2023-02-14 13:04 | EKG12_ITS ---
Test Reason : DIZZINESS Blood Pressure : / mmHG Vent. Rate : 071 BPM Atrial Rate : 071 BPM P-R Int : 182 ms QRS Dur : 094 ms QT Int : 370 ms P-R-T Axes : 067 -02 120 degrees QTc Int : 402 ms Normal sinus rhythm Nonspecific ST and T wave abnormality Abnormal ECG Confirmed by SAMAN ROLON, MARLENE ([id number]), newspaper or periodical editor CARSON GARCÍA ([id number]) on 02/16/2023 9:25:58 AM Referred By: JOSE Confirmed By:MARLENE DAVISON MD
--- NOTE | 2023-02-14 13:05 | EX.ED.DYSGE1 ---
HPI History of Present Illness Chief Complaint: Nausea/Vomiting Informant: patient and spouse/S.O. Narrative Narrative: Patient presents spouse currently present reporting vomiting since this morning. She woke up well. Reported took a new back pain medication started vomiting. She deals with sciatica. She is vomiting multiple times no blood. Normal bowel movement this morning. No abdominal pain. Spouse concerned of this new medications. However further discussion she states she is having dizzy sensations before vomiting each time. She has not had this in the past. No recent illness. Per spouse patient has had some memory issues over last 2 months he try to contact PCP over last 2 weeks has not gotten a response. She has been more forgetful. No diagnosed dementia. No cough. Patient on thyroid medicines and vitamins and states took a new [id number] memory pill. Prior similar symptoms: No PFSH PFSH Medical History Arthritis Enteritis Environmental allergies HTN (hypertension) Hypothyroid Sciatica Thyroid cancer Home Medications calcium carbonate 500 mg calcium (1,250 mg) tablet 500 mg PO DAILY@0800 supplement 08/16/13 [History Last Taken 02/14/23] levothyroxine 100 mcg tablet 88 mcg PO DAILY thyroid 08/16/13 [History Last Taken 02/14/23] lisinopril 20 mg tablet 20 mg PO BID htn 08/16/13 [History Last Taken 02/14/23] cyanocobalamin (vitamin B-12) 500 mcg tablet 1,000 mcg PO DAILY@0800 08/25/19 [History Last Taken 02/14/23] aspirin 81 mg tablet,delayed release 81 mg PO DAILY 05/27/22 [History Last Taken 02/14/23] duloxetine 20 mg capsule,delayed release 20 mg PO DAILY 02/14/23 [History Last Taken 02/14/23] multivitamin (Daily Multi-Vitamin tablet) 1 tab PO DAILY SUPPLEMENT 02/14/23 [History Last Taken 02/14/23] Allergy/AdvReac Type Severity Reaction Status Date / Time No Known Allergies Allergy Verified 01/27/23 13:48 Surgical History H/O thyroidectomy History of facial surgery S/P hysterectomy s/p pelvic floor reconstruction Social History household members: spouse Smoking Status: Never smoker alcohol intake: never substance use type: does not use ROS ROS ED Constitutional Constitutional ED: Denies chills, fever(s) or sweats Eyes Eyes: Denies change in vision ENT ENT ED: Denies dysphagia or sore throat Cardiovascular Cardiovascular: Denies chest pain, leg edema, palpitations or racing heartbeat Respiratory/Chest Respiratory/Chest: Denies cough, dyspnea or dyspnea on exertion Gastrointestinal Gastrointestinal: Reports nausea and vomiting; Denies abdominal pain or diarrhea Genitourinary Genitourinary ED: Denies dysuria, hematuria or urinary frequency Musculoskeletal Musculoskeletal: Denies back pain, extremity pain or neck pain Integumentary Denies rash or wounds Neurologic Neurologic: Reports other Details: Dizzy ; Denies headache(s), paresthesias or weakness EXAM Physical Exam Const Vital Signs: 02/14/23 11:56 02/14/23 16:18 Temperature 98.1 F Temperature Source Temporal Pulse Rate 72 64 Respiratory Rate 18 14 Blood Pressure 167/93 H 124/78 H Blood Pressure Mean 117 93 Pulse Ox 97 98 Oxygen Delivery Method Room Air Room Air Positive well nourished and well developed General Appearance ED: well developed and NAD HEENT Reports moist mucous membranes normocephalic and atraumatic Eyes PERRL, EOMs intact bilaterally and conjunctivae normal Eyes Narrative: No nystagmus General Eye ED: Yes normal appearance of both eyes Neck no lymphadenopathy and supple General: Negative for tenderness Chest Wall Chest: Negative for tenderness Resp normal respiratory effort and normal air movement Effort and Inspection: symmetric chest movement; Negative for respiratory distress Cardio regular rate, regular rhythm and no murmurs Peripheral Pulses: pulses 2+ throughout GI normal to inspection, nondistended, normoactive bowel sounds and non-tender Palpation: Negative for guarding or rebound tenderness present Back/Spine no CVA tenderness and no thoracic nor lumbar tenderness Extremity normal to inspection General Extremety ED: Negative for edema or tenderness General Extremity: Negative for edema Neuro CN's II-XII intact bilaterally and no sensory deficits noted Neuro Narrative: Alert to person and place cannot tell me the year or month. NIH of 1 secondary to not knowing the month. Sensorium / Orientation: awake and alert Skin no rashes or lesions noted and no wounds MDM MDM MDM Narrative Medical decision making narrative: Interventions / MDM: Differential diagnosis: Vertigo, CVA Diagnosis considered but do not suspect: N/A My EKG interpretation: Sinus rate of 71, no ST changes T wave inversion anterior lateral leads. Imaging independently reviewed and interpreted by myself: CT brain no acute process also read by radiology. External documents reviewed: N/A Test considered but not ordered:N/A ED course: Your history concerns more of dizziness causing her vomiting. However she has been more forgetful over the last 2 months per spouse or NIH of 1 due to not knowing the month. We will check a head CT, labs with urine. Will give fluids and Zofran. Will reevaluate. 1600: Patient is she was feeling better on reevaluation, CT scan and labs obtained also negative. Relation towards and she became dizzy, attempted p.o. challenge she became nauseated again. Still having symptoms. Ordered for meclizine to help with symptoms. 1630: Patient having persistent symptoms, discussed with hospitalist Dr. Martínez for admission to PCU. Did discuss with spouse likely early dementia symptoms with forgetfulness. Re-evaluation: stable Disposition discussed with patient/family/significant other: Patient and significant other Case discussed with consulting clinician: Hospitalist This note was generated with [employer] dictation software. It may contain incorrect words, spelling, and punctuation that were not noted in checking the note before signing. Lab Data Attestation: I reviewed the patient's lab results. Labs: Laboratory Results - last 24 hr 02/14/23 02/14/23 13:15 15:49 WBC 8.8 RBC 3.69 L Hgb 11.7 L Hct 36.7 L MCV 99.5 H MCH 31.7 MCHC 31.9 L RDW Std Deviation 47.9 H RDW Coeff of Cassandra 13.1 Plt Count 178 MPV 11.4 Immature Gran % (Auto) 0.500 Neut % (Auto) 88.5 H Lymph % (Auto) 8.5 L Roberts % (Auto) 2.1 Eos % (Auto) 0.1 Baso % (Auto) 0.3 Absolute Neuts (auto) 7.8 H Absolute Lymphs (auto) 0.74 L Nucleated RBC % 0 Sodium 137 Potassium 3.6 Chloride 106 Carbon Dioxide 27.0 Anion Gap 4 L BUN 22 H Creatinine 0.84 Estim Creat Clear Calc 51.94 Est GFR (MDRD) Af Amer 84 Est GFR (MDRD) Non-Af 70 BUN/Creatinine Ratio 26.3 H Glucose 147 H Calcium 8.7 Urine Color Yellow Urine Clarity Clear Urine pH 7.0 Ur Specific [place] 1.010 Urine Protein Negative Urine Glucose (UA) 50 H Urine Ketones 5 H Urine Occult Blood Negative Urine Nitrite Negative Urine Bilirubin Negative Urine Urobilinogen Normal Ur Leukocyte Esterase Negative Urine RBC 0 SEEN Urine WBC 0 SEEN Ur Squamous Epith Cells 0-5 SEEN Urine Bacteria RARE Urine Mucus 0 SEEN Radiography Diagnostic Testing: Clinical Impression(s) from Imaging Studies Brain CT 02/14/23 13:03 IMPRESSION: Chronic involutional changes of the brain. Stable examination. Electronically Signed: Yang Bolden MD at 13:57 EDT , Discharge Plan Triage Chief Complaint: Nausea/Vomiting ED Provider: Tommie Huang Dx/Rx/DC Orders Clinical Impression: Dementia, Vertigo, Nausea & vomiting Prescriptions: No Action lisinopril 20 MG tablet 20 mg PO BID levothyroxine 100 MCG tablet 88 mcg PO DAILY calcium carbonate 500 MG tablet 500 mg PO DAILY@0800 cyanocobalamin (vitamin B-12) 500 MCG tablet 1,000 mcg PO DAILY@0800 aspirin [Aspir-81] 81 mg Tablet,Delayed Release (Dr/Ec) 81 mg PO DAILY duloxetine 20 mg capsule,delayed release(DR/EC) 20 mg PO DAILY multivitamin [Daily Multi-Vitamin] Tablet 1 tab PO DAILY Primary Care Provider: Antonella Loyola Referrals: Antonella Loyola DO [Primary Care Provider] - Disposition Disposition: [facility]
[2023-02-14] MEDS: Ondansetron 4 MG/2 ML Vial IV (13:16)
[2023-02-14] MEDS: 0.9% Normal Saline 1,000 ML 1000 ML IV (13:16)
[2023-02-14 13:30] LABS: Absolute Lymphocyte Count 0.74 X10^3/uL (0.83-4.51); Absolute Neutrophil Count 7.8 X10^3/uL (2.0-7.7); Basophil# 0.03 X10^3/uL; Basophil% 0.3 % (0-1); Eosinophil# 0.01 X10^3/uL; Eosinophils% 0.1 % (0-5); Hematocrit 36.7 % (37-47); Hemoglobin 11.7 g/dL (12.0-15.0); Lymphocyte # 0.74 X10^3/ul (0.83-4.51); Lymphocyte % 8.5 % (19-41); Mean Corp Hgb Conc 31.9 g/dL (32-36); Mean Corpuscular Hgb 31.7 pg (27.0-32.0); Mean Corpuscular Volume 99.5 fL (81-99); Mean Platelet Vol. 11.4 fl (6.2-12.0); Monocyte# 0.18 X10^3/uL; Monocyte% 2.1 % (0-10); NRBC Flagged by Analyzer 0 % (0-5); Neutrophil # 7.75 X10^3/uL (2.7-7.7); Neutrophil % 88.5 % (47-70); Platelet Count 178 K/mm3 (150-450); RBC Distribution Width CV 13.1 % (11.6-14.6); RBC Distribution Width SD 47.9 fl (35.1-43.9); Red Blood Count 3.69 M/mm3 (4.2-5.4); White Blood Count 8.8 K/mm3 (4.4-11.0)
[2023-02-14 13:40] LABS: Anion Gap 4 (5-15); BUN 22 mg/dL (7-18); BUN/Creat Ratio 26.3 RATIO (10-20); Calcium,Total 8.7 mg/dL (8.5-10.1); Chloride 106 mmol/L (98-107); Creatinine, Serum 0.84 mg/dL (0.55-1.02); EST Glomerular Filtration Rate 70 mL/min (>60); Est Glom Filt Rate - Afr Amer 84 mL/min (>60); Estimated Creatinine Clearance 51.94 ml/min; Glucose 147 mg/dL (74-106); Potassium 3.6 mmol/L (3.5-5.1); Sodium Level 137 mmol/L (136-145)
[2023-02-14 16:00] LABS: Mucous, Urine 0 SEEN /hpf (<or=2+); Red Blood Cells-Urine 0 SEEN /hpf (0-5); White Blood Cells 0 SEEN /hpf (0-5)
[2023-02-14 16:14] LABS: Color, Urine Yellow (Yellow); Glucose, Dipstick 50 mg/dl (Normal); Ketone-Dipstick 5 mg/dl (Negative); Leukocyte Esterase-Dipstick Negative /ul (Negative); Nitrite-Dipstick Negative (Negative); Occult Blood-Urine Negative /ul (Negative); Protein-Dipstick Negative (Negative); Urine Bilirubin Dipstick Negative (Negative); Urine Clarity Clear (Clear); Urine Urobilinogen Normal (Normal)
[2023-02-14 16:18] VITALS: BP 124/78; PULSE 64; RESP 14; O2SAT 98
[2023-02-14 16:30] LABS: Bacteria RARE /hpf (None Seen); Squamous Epithelial Cells - UA 0-5 SEEN /hpf (5-10)
[2023-02-14 16:40] VITALS: BP 118/76; PULSE 76; RESP 14; TEMP 36.6; O2SAT 98
--- NOTE | 2023-02-14 16:40 | CT_ITS ---
We are attempting to reach an attending provider to discuss findings. An addendum with communication details will be sent when the communication is complete. INDICATION: Neuro deficit, acute, stroke suspected EXAMINATION: CT BRAIN WITH CONTRAST TECHNIQUE: Routine carotid CT angiogram protocol was performed without and with IV contrast. In addition, images were obtained of the [place]. NASCET criteria using the distal ICAs for comparison were used for evaluation of stenoses. 3D reconstructions were reviewed. A radiation dose optimization technique was used for this scan. IV Contrast dosage and agent: 95 mL [id number] COMPARISON: Concurrent head CT FINDINGS: --CTA NECK: AORTIC ARCH AND BRANCHES: Normal anatomy, patent. RIGHT CCA: No occlusion, significant stenosis or dissection. RIGHT ICA: No occlusion, significant stenosis or dissection. Areas of beaded appearance LEFT CCA: No occlusion, significant stenosis or dissection. LEFT ICA: No occlusion, significant stenosis or dissection. Areas of beaded appearance. RIGHT VERTEBRAL ARTERY: No occlusion, significant stenosis or dissection. Distal areas of beaded appearance. LEFT VERTEBRAL ARTERY: No occlusion, significant stenosis or dissection. Distal areas of beaded appearance. NECK SOFT TISSUES: Unremarkable. --CTA HEAD: --Anterior circulation: ICAs: No significant stenosis at the intracranial/visualized segments. ACAs: No significant stenosis at the visualized segments. Areas of beaded appearance. ACOM: Present. MCAs: No significant stenosis at the visualized segments. --Posterior circulation: PCOMs: Right-sided infundibulum. The dominant on the left. child development specialist: No significant stenosis at the visualized segments. BASILAR ARTERY: No significant stenosis. VERTEBRAL ARTERIES: No significant stenosis at the intradural/visualized segments. No evidence of intracranial aneurysm or vascular malformation. CT/STROKE CTA Head AND Neck W/Con IMPRESSION: No finding of arterial stenosis, occlusion, or dissection. Multifocal FMD. Electronically Signed: Cory Alves MD at 17:32 EDT ,
--- NOTE | 2023-02-14 16:40 | MRI_ITS ---
STUDY: MRI BRAIN WITHOUT CONTRAST REASON FOR EXAM: Female, 82 years old. Vertigo TECHNIQUE: Standardized multiplanar fat and water weighted pulse sequences were obtained. COMPARISON: CT. FINDINGS: There is mild cerebral atrophy with widening of the extra-axial spaces and ventricular dilatation. There are a limited number of small white matter hyperintensities, distributed throughout the deep white matter tracts of the cerebral hemispheres, consistent with mild chronic white matter ischemic changes. There is no evidence for recent intracranial ischemia or other cause of cytotoxic edema on diffusion weighted imaging (DWI). Normal T2* images of the brain without demonstrated susceptibility artifact. There is no demonstrated hemosiderin stain. Normal bilateral basal ganglia. Normal thalami. There is no extra-axial fluid accumulation. Normal flow voids within the major intracranial circulation suggesting patency by spin echo criteria. Normal sella turcica, pituitary gland, infundibular stalk, optic chiasm and hypothalamus. Normal tectal plate and pineal gland. Normal midbrain, zainab and medulla. Normal cerebellum. Normal basal cisterns. 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 Normal bilateral internal auditory canals. There are bilateral ocular lens implants with otherwise normal intraorbital contents. Normal visualized paranasal sinuses. Normal calvarium and skull base. Normal visualized soft tissue structures. Normal visualized upper cervical spine. MRI/Brain without Contrast IMPRESSION: Involutional changes of the brain, as described above. Electronically Signed: Be Cornell MD at 20:38 EDT ,
--- NOTE | 2023-02-14 16:41 | HP.PCM.HOS_ITS ---
HPI - General General Date of Service: 02/14/23 Chief Complaint: Nausea vomiting and dizziness HPI Narrative ESTRADA MURO, is a 82 F who presents who presents with nausea vomiting and dizziness. Patient symptoms started on the morning of her admission. Per p atient vomited a couple of times. was apparently at work return home and brought patient to the emergency department. CT of the head obtained in the ED came back unremarkable admitted for subsequent work-up in the hospital [facility], [facility] Medical History Arthritis Enteritis Environmental allergies HTN (hypertension) Hypothyroid Sciatica Thyroid cancer Home Medications calcium carbonate 500 mg calcium (1,250 mg) tablet 500 mg PO DAILY@0800 supplement 08/16/13 [History Last Taken 02/14/23] levothyroxine 100 mcg tablet 88 mcg PO DAILY thyroid 08/16/13 [History Last Taken 02/14/23] lisinopril 20 mg tablet 20 mg PO BID htn 08/16/13 [History Last Taken 02/14/23] cyanocobalamin (vitamin B-12) 500 mcg tablet 1,000 mcg PO DAILY@0800 08/25/19 [History Last Taken 02/14/23] aspirin 81 mg tablet,delayed release 81 mg PO DAILY 05/27/22 [History Last Taken 02/14/23] duloxetine 20 mg capsule,delayed release 20 mg PO DAILY 02/14/23 [History Last Taken 02/14/23] multivitamin (Daily Multi-Vitamin tablet) 1 tab PO DAILY SUPPLEMENT 02/14/23 [History Last Taken 02/14/23] Allergy/AdvReac Type Severity Reaction Status Date / Time No Known Allergies Allergy Verified 01/27/23 13:48 Family History unable to obtain unable to obtain (Patient has memory issues) Surgical History H/O thyroidectomy History of facial surgery S/P hysterectomy s/p pelvic floor reconstruction Social History household members: spouse Smoking Status: Never smoker alcohol intake: never substance use type: does not use ROS ROS Narrative GENERAL: denies fever, chills, night sweats, weight loss, anorexia HEENT: denies headache, sinus congestion, or drainage, dysphagia RESPIRATORY: denies cough, sputum production, shortness of breath, CARDIAC: denies chest pain, palpitations, orthopnea, PND GASTROINTESTINAL: nausea, vomiting,, GENITOURINARY: denies dysuria, urgency, frequency, heamaturia EXTREMITY: denies swelling MUSCULOSKELETAL: denies current joint pain or tenderness NEUROLOGIC: denies focal numbness, weakness, tingling HEMATOLOGIC: denies easy bruising and/or hemorrhage INTEGUMENT: denies rashes PSYCHIATRIC: denies suicidal or homicidal ideation Vital Signs Vital Signs Vital Signs: 02/14/23 11:56 02/14/23 16:18 02/14/23 16:40 Temperature 98.1 F 97.8 F Temperature Source Temporal Temporal Pulse Rate 72 64 76 Respiratory Rate 18 14 14 Blood Pressure 167/93 H 124/78 H 118/76 Blood Pressure Mean 117 93 90 Pulse Ox 97 98 98 Oxygen Delivery Method Room Air Room Air Room Air Weight Weight: 65.771 kg Body Mass Index (BMI) 22.7 Physical Exam Narrative GENERAL: cooperative HEENT: Atraumatic; normocephalic EYES; Anicteric, Normal Conjunctiva NECK; supple, normal thyroid, RESPIRATORY: Diminished to auscultation CARDIOVASCULAR: Regular S1 S2, GI: soft, normoactive bowel sounds, : No Renal angle tenderness; EXTREMITIES: No edema, no clubbing, MUSCULOSKELETAL: no muscle wasting NEURO: Awake; no lateralizing signs. SKIN: No Rash PSYCH; Flat affect Results Lab / Micro Data 02/14/23 13:15 02/14/23 13:15 Labs: Laboratory Results - last 24 hr 02/14/23 13:15: WBC 8.8, RBC 3.69 L, Hgb 11.7 L, Hct 36.7 L, MCV 99.5 H, MCH 31.7, MCHC 31.9 L, RDW Std Deviation 47.9 H, RDW Coeff of Cassandra 13.1, Plt Count 178, MPV 11.4, Immature Gran % (Auto) 0.500, Neut % (Auto) 88.5 H, Lymph % (Auto) 8.5 L, [place] % (Auto) 2.1, Eos % (Auto) 0.1, Baso % (Auto) 0.3, Absolute Neuts (auto) 7.8 H, Absolute Lymphs (auto) 0.74 L, Nucleated RBC % 0, Sodium 137, Potassium 3.6, Chloride 106, Carbon Dioxide 27.0, Anion Gap 4 L, BUN 22 H, Creatinine 0.84, Estim Creat Clear Calc 51.94, Est GFR (MDRD) Af Amer 84, Est GFR (MDRD) Non-Af 70, BUN/Creatinine Ratio 26.3 H, Glucose 147 H, Calcium 8.7 02/14/23 15:49: Urine Color Yellow, Urine Clarity Clear, Urine pH 7.0, Ur Specific [place] 1.010, Urine Protein Negative, Urine Glucose (UA) 50 H, Urine Ketones 5 H, Urine Occult Blood Negative, Urine Nitrite Negative, Urine Bilirubin Negative, Urine Urobilinogen Normal, Ur Leukocyte Esterase Negative, Urine RBC 0 SEEN, Urine WBC 0 SEEN, Ur Squamous Epith Cells 0-5 SEEN, Urine Bacteria RARE, Urine Mucus 0 SEEN Radiology Impression Brain CT 02/14/23 13:03 IMPRESSION: Chronic involutional changes of the brain. Stable examination. Electronically Signed: Yang Bolden MD at 13:57 EDT , Assessment & Plan Assessment/Plan (1) Vertigo: PLAN: Plan Patient is an 82-year-old lady presented with nausea vomiting and vertigo 1. Acute vertigo ? Admitted to a monitored bed currently undergoing evaluation for possible p osterior circulation CVA. BPPV is also on the list of differentials. As part of patient management was placed on telemetry monitoring ordered every 4 neurochecks MRI of the brain as well as CT angio of the head and neck 2. Intractable nausea vomiting ? Related to above symptoms 3. Suspected dementia ? Patient to undergo work-up as outpatient by PCP 4. History of thyroid cancer -status post resection resulting in iatrogenic hypothyroidism. Patient is on levothyroxine did continue 5. Depression with anxiety ? Patient is on duloxetine 6. Hypertension - Blood pressure controlled, home medications continued with dose adjustment as needed 7. GERD On PPI 8. DVT prophylaxis - On enoxaparin Time spent in the patient's overall evaluation,decision-making process, review of diagnostic data, adjustment of management, discussion with other providers, nursing nursing and ancillary staff involved in patient's care documentation, 60 Minutes Advance planning; did discuss with the patient and family regarding advanced directives as well as CODE STATUS. Did explain the various scenarios involved ( FULL CODE, DNR CCA, DNR CCA with no intubation, and DNR CC and what each meant) patient elected to be DNR CCA no intubation. Order was placed. Time spent on discussion 18 minutes. Charges/Coding Visit Charges Inpatient E&M: 30904 Init Hosp L2 Procedures Hospitalists Procedures: 99273 Advncd Care Plan 30 Min
[2023-02-14] MEDS: Meclizine 12.5 MG Tablet PO (16:44)
--- NOTE | 2023-02-14 17:57 | ECHOD_ITS ---
Reason For Study: TIA/CVA Procedure This was a 2D Doppler, Color Flow transthoracic echocardiogram. Exam performed portable in patient room. Left Ventricle Normal LV size. Left ventricular systolic function is normal. The estimated ejection fraction is 60 %. Stage 1 diastolic dysfunction. No regional wall motion abnormalities noted. Right Ventricle Normal RV size. Normal systolic function. Atria Normal left atrium. Normal right atrium. Bubble contrast study negative for right to left interatrial shunt. Mitral Valve Normal mitral valve. Tricuspid Valve Normal tricuspid valve. Mild tricuspid valve insufficiency. Pulmonary artery systolic pressure is 28 mmHg. Aortic Valve Normal aortic valve. Trisinus/trileaflet aortic valve. Pulmonic Valve Normal pulmonic valve. Great Vessels Normal aortic root. The pulmonary artery is normal size. Normal inferior vena cava. Pericardium/Pleural No pericardial effusion. Medication Performed a rapid injection of agitated mix of 9 cc saline and 1cc air to assess for atrial septal defect. MMode/2D Measurements & Calculations LVIDd: 5.0 cm IVSd: 0.73 cm Ao root diam: 2.9 cm LVIDs: 3.5 cm LVPWd: 0.94 cm RVDd: 2.6 cm FS: 30.5 % LAV(MOD-sp4): 31.9 ml LVAd ap4: 25.9 cm2 SV(MOD-sp4): 40.4 ml LVLd ap4: 7.9 cm EDV(MOD-sp4): 73.4 ml EDV(sp4-el): 72.7 ml LVAs ap4: 15.2 cm2 LVLs ap4: 6.3 cm ESV(MOD-sp4): 33.1 ml ESV(sp4-el): 31.0 ml EF(MOD-sp4): 55.0 % EF(sp4-el): 57.3 % SV(sp4-el): 41.7 ml LA A4 area: 13.9 cm2 LA dimension(2D): 3.0 cm RA A4 area: 21.4 cm2 TAPSE: 2.2 cm Time Measurements MV dec time: 0.20 sec Doppler Measurements & Calculations MV E max oswald: 80.6 cm/sec Lat Peak E' Oswald: 8.4 cm/sec Med Peak E' Oswald: 7.3 cm/sec MV A max oswald: 93.6 cm/sec E/E' lat: 9.6 E/E' med: 11.1 MV E/A: 0.86 MV V2 max: 105.1 cm/sec MV dec slope: 413.5 cm/sec2 Ao V2 max: 118.9 cm/sec MV max P.4 mmHg Ao max P.7 mmHg MV V2 mean: 68.2 cm/sec Ao V2 mean: 81.9 cm/sec MV mean P.0 mmHg Ao mean P.0 mmHg MV V2 VTI: 41.1 cm Ao V2 VTI: 28.7 cm AV (velocity ratio): 0.88 LV V1 max: 101.6 cm/sec MR max oswald: 534.6 cm/sec PA V2 max: 104.7 cm/sec LV V1 max P.1 mmHg MR max P.3 mmHg PA V2 mean: 69.6 cm/sec LV V1 mean P.4 mmHg MR mean oswald: 400.3 cm/sec LV V1 mean: 72.5 cm/sec MR mean P.2 mmHg LV V1 VTI: 25.3 cm MR VTI: 213.1 cm TR max oswald: 247.2 cm/sec TR max P.6 mmHg ECHO/Echo Complete Interpretation Summary Normal LV size. Left ventricular systolic function is normal. The estimated ejection fraction is 60 %. Bubble contrast study negative for right to left interatrial shunt. Stage 1 diastolic dysfunction. Ordering Physician: Talat Martínez Referring Physician: Antonella Loyola Performed By: Ana Bauman RCS
[2023-02-14 18:05] VITALS: BMI 20.7
[2023-02-14 18:15] VITALS: BP 146/84; PULSE 71; RESP 16; TEMP 36.5; O2SAT 94
[2023-02-14] MEDS: 0.9% Saline Lock 10 ML Syringe IV (19:02)
[2023-02-14] MEDS: 0.9% Normal Saline 1,000 ML 100 ML IV (19:02)
[2023-02-14] MEDS: Acetaminophen 325 MG Tablet 650 MG PO (21:16)
[2023-02-14] MEDS: Lisinopril 20 MG Tablet PO (21:16)
[2023-02-14 22:00] VITALS: BP 141/62; PULSE 74; RESP 18; TEMP 36.7; O2SAT 93
[2023-02-14 22:30] VITALS: BP 141/62; PULSE 74; RESP 18; TEMP 36.7; O2SAT 93
[2023-02-15 02:00] VITALS: BP 126/63; PULSE 71; RESP 16; TEMP 36.8; O2SAT 96
[2023-02-15] MEDS: Acetaminophen 325 MG Tablet 650 MG PO (03:15)
[2023-02-15] MEDS: 0.9% Normal Saline 1,000 ML 100 ML IV (03:15)
[2023-02-15 05:00] VITALS: BMI 20.7
[2023-02-15 05:31] VITALS: O2SAT 94
[2023-02-15] MEDS: Levothyroxine 88 MCG Tablet PO (05:55)
[2023-02-15 06:04] LABS: Absolute Lymphocyte Count 1.62 X10^3/uL (0.83-4.51); Absolute Neutrophil Count 5.4 X10^3/uL (2.0-7.7); Basophil# 0.03 X10^3/uL; Basophil% 0.4 % (0-1); Eosinophil# 0.04 X10^3/uL; Eosinophils% 0.5 % (0-5); Hematocrit 33.6 % (37-47); Hemoglobin 10.9 g/dL (12.0-15.0); Lymphocyte # 1.62 X10^3/ul (0.83-4.51); Mean Corp Hgb Conc 32.4 g/dL (32-36); Mean Corpuscular Hgb 32.1 pg (27.0-32.0); Mean Corpuscular Volume 98.8 fL (81-99); Mean Platelet Vol. 11.8 fl (6.2-12.0); Monocyte# 0.58 X10^3/uL; Monocyte% 7.5 % (0-10); NRBC Flagged by Analyzer 0 % (0-5); Neutrophil # 5.43 X10^3/uL (2.7-7.7); Neutrophil % 70.5 % (47-70); Platelet Count 182 K/mm3 (150-450); RBC Distribution Width CV 13.1 % (11.6-14.6); RBC Distribution Width SD 47.2 fl (35.1-43.9); White Blood Count 7.7 K/mm3 (4.4-11.0)
[2023-02-15 06:35] LABS: Anion Gap 4 (5-15); BUN 16 mg/dL (7-18); BUN/Creat Ratio 19.2 RATIO (10-20); Calcium,Total 8.2 mg/dL (8.5-10.1); Chloride 110 mmol/L (98-107); Cholesterol 176 mg/dL (200); Creatinine, Serum 0.84 mg/dL (0.55-1.02); EST Glomerular Filtration Rate 70 mL/min (>60); Est Glom Filt Rate - Afr Amer 84 mL/min (>60); Estimated Creatinine Clearance 50.76 ml/min; Glucose 94 mg/dL (74-106); High Density Lipoprotein 70 mg/dL; Magnesium 2.2 mg/dL (1.6-2.6); Phosphorus 3.5 mg/dL (2.5-4.9); Potassium 3.5 mmol/L (3.5-5.1); Sodium Level 141 mmol/L (136-145); Triglycerides 78 mg/dL; Very Low Density Lipoprotein 16 mg/dL (5-40)
[2023-02-15 07:34] VITALS: O2SAT 95
--- NOTE | 2023-02-15 07:50 | PCM.PN.HOSP ---
Reason for Visit Reason for Visit: Diagnoses Dizziness and giddiness (02/14/23) Subjective Subjective Patient seen symptoms have resolved MRI did not demonstrate any posterior circulation CVA Objective Data Objective Data Vital Signs: Vital Signs Temp Pulse Resp BP Pulse Ox O2 Del Method 98.2 F 71 16 126/63 H 94 Room Air 02/15/23 02:00 02/15/23 02:00 02/15/23 02:00 02/15/23 02:00 02/15/23 05:31 02/15/23 05:31 Oxygen Delivery Method Room Air Weight: 60.2 kg Body Mass Index (BMI) 20.7 Intake & Output: Intake and Output for Last 24 Hours 02/13/23 02/14/23 02/15/23 23:59 23:59 23:59 Intake Total 1000 / 1070 941.67 / 941.67 Balance 1000 / 1070 941.67 / 941.67 Lab / Micro Data 02/15/23 05:03 02/15/23 05:03 Labs: Laboratory Results - last 24 hr 02/14/23 13:15: WBC 8.8, RBC 3.69 L, Hgb 11.7 L, Hct 36.7 L, MCV 99.5 H, MCH 31.7, MCHC 31.9 L, RDW Std Deviation 47.9 H, RDW Coeff of Cassandra 13.1, Plt Count 178, MPV 11.4, Immature Gran % (Auto) 0.500, Neut % (Auto) 88.5 H, Lymph % (Auto) 8.5 L, [place] % (Auto) 2.1, Eos % (Auto) 0.1, Baso % (Auto) 0.3, Absolute Neuts (auto) 7.8 H, Absolute Lymphs (auto) 0.74 L, Nucleated RBC % 0, Sodium 137, Potassium 3.6, Chloride 106, Carbon Dioxide 27.0, Anion Gap 4 L, BUN 22 H, Creatinine 0.84, Estim Creat Clear Calc 51.94, Est GFR (MDRD) Af Amer 84, Est GFR (MDRD) Non-Af 70, BUN/Creatinine Ratio 26.3 H, Glucose 147 H, Calcium 8.7 02/14/23 15:49: Urine Color Yellow, Urine Clarity Clear, Urine pH 7.0, Ur Specific [place] 1.010, Urine Protein Negative, Urine Glucose (UA) 50 H, Urine Ketones 5 H, Urine Occult Blood Negative, Urine Nitrite Negative, Urine Bilirubin Negative, Urine Urobilinogen Normal, Ur Leukocyte Esterase Negative, Urine RBC 0 SEEN, Urine WBC 0 SEEN, Ur Squamous Epith Cells 0-5 SEEN, Urine Bacteria RARE, Urine Mucus 0 SEEN 02/15/23 05:03: WBC 7.7, RBC 3.40 L, Hgb 10.9 L, Hct 33.6 L, MCV 98.8, MCH 32.1 H, MCHC 32.4, RDW Std Deviation 47.2 H, RDW Coeff of Cassandra 13.1, Plt Count 182, MPV 11.8, Immature Gran % (Auto) 0.100, Neut % (Auto) 70.5 H, Lymph % (Auto) 21.0, [place] % (Auto) 7.5, Eos % (Auto) 0.5, Baso % (Auto) 0.4, Absolute Neuts (auto) 5.4, Absolute Lymphs (auto) 1.62, Nucleated RBC % 0, Sodium 141, Potassium 3.5, Chloride 110 H, Carbon Dioxide 27.0, Anion Gap 4 L, BUN 16, Creatinine 0.84, Estim Creat Clear Calc 50.76, Est GFR (MDRD) Af Amer 84, Est GFR (MDRD) Non-Af 70, BUN/Creatinine Ratio 19.2, Glucose 94, Calcium 8.2 L, Phosphorus 3.5, Magnesium 2.2, Triglycerides 78, Cholesterol 176, LDL Cholesterol 90, VLDL Cholesterol 16, HDL Cholesterol 70 Radiography Diagnostic Testing: Radiology Impression Brain CT 02/14/23 13:03 IMPRESSION: Chronic involutional changes of the brain. Stable examination. Electronically Signed: Yang Bolden MD at 13:57 EDT , Brain MRI 02/14/23 16:40 IMPRESSION: Involutional changes of the brain, as described above. Electronically Signed: Be Cornell MD at 20:38 EDT , Head/Neck CTA 02/14/23 16:40 IMPRESSION: No finding of arterial stenosis, occlusion, or dissection. Multifocal FMD. Electronically Signed: Cory Alves MD at 17:32 EDT , ADDENDUM: 02/14/23 1755 IMPRESSION: No finding of arterial stenosis, occlusion, or dissection. Multifocal FMD. N.B. : The above Results were Read Back by Cory Alves MD to Al Bassett AA, and understanding confirmed on 02/14/2023 17:48:49 (ET). Electronically Signed: Cory Alves MD at 17:32 EDT , Physical Exam Narrative GENERAL: cooperative HEENT: Atraumatic; normocephalic EYES; Anicteric, Normal Conjunctiva NECK; supple, normal thyroid, RESPIRATORY: Diminished to auscultation CARDIOVASCULAR: Regular S1 S2, GI: soft, normoactive bowel sounds, : No Renal angle tenderness; EXTREMITIES: No edema, no clubbing, MUSCULOSKELETAL: no muscle wasting NEURO: Awake; no lateralizing signs. SKIN: No Rash PSYCH; Flat affect Assessment & Plan Assessment/Plan (1) Vertigo: PLAN: Plan Patient is an 82-year-old lady presented with nausea vomiting and vertigo 1. Acute vertigo ? Admitted to a monitored bed currently undergoing evaluation for possible posterior circulation CVA. BPPV is also on the list of differentials. As part of patient management was placed on telemetry monitoring ordered every 4 neurochecks MRI of the brain as well as CT angio of the head and neck -02/15/2023 7 patient seen symptoms have resolved MRI did not demonstrate any posterior circulation CVA 2. Intractable nausea vomiting ? Related to above symptoms 3. Suspected dementia ? Patient to undergo work-up as outpatient by PCP 4. History of thyroid cancer -status post resection resulting in iatrogenic hypothyroidism. Patient is on levothyroxine did continue 5. Depression with anxiety ? Patient is on duloxetine 6. Hypertension - Blood pressure controlled, home medications continued with dose adjustment as needed 7. GERD On PPI 8. DVT prophylaxis - On enoxaparin Time spent in the patient's overall evaluation,decision-making process, review of diagnostic data, adjustment of management, discussion with other providers, nursing nursing and ancillary staff involved in patient's care documentation, 35 minutes Charges/Coding Visit Charges Inpatient E&M: 66069 [facility] Hosp L2
[2023-02-15 10:39] VITALS: BP 141/79; PULSE 63; RESP 16; TEMP 37; O2SAT 96
[2023-02-15] MEDS: Lisinopril 20 MG Tablet PO (10:45)
[2023-02-15] MEDS: Multivitamins,Therapeutic Tablet 1 TABLET PO (10:45)
[2023-02-15] MEDS: Aspirin E.C. 81 MG Tablet PO (10:45)
[2023-02-15] MEDS: Cyanocobalamin 500 MCG Tablet 1000 MCG PO (10:45)
[2023-02-15] MEDS: DULoxetine Hcl 20 MG Capsule PO (10:45)
[2023-02-15] MEDS: Calcium (Elemental) 500 MG Tablet PO (10:45)
[2023-02-15] MEDS: Enoxaparin 40 MG/0.4 ML Syringe SC (10:46)
--- NOTE | 2023-02-15 11:57 | PCM.DC.SUM ---
Providers Date of Admission: 02/14/23 Date of Discharge: 02/15/23 Primary Care Physician: Dr. Antonella Loyola DO Reason For Visit: VERTIGO Diagnosis Discharge Diagnosis (1) Vertigo: Status: Acute Code(s): R42 - Dizziness and giddiness Plan Patient is an 82-year-old lady presented with nausea vomiting and vertigo 1. Acute vertigo ? Admitted to a monitored bed currently undergoing evaluation for possible posterior circulation CVA. BPPV is also on the list of differentials. As part of patient management was placed on telemetry monitoring ordered every 4 neurochecks MRI of the brain as well as CT angio of the head and neck -02/15/2023 7 patient seen symptoms have resolved MRI did not demonstrate any posterior circulation CVA 2. Intractable nausea vomiting ? Related to above symptoms 3. Suspected dementia ? Patient to undergo work-up as outpatient by PCP 4. History of thyroid cancer -status post resection resulting in iatrogenic hypothyroidism. Patient is on levothyroxine did continue 5. Depression with anxiety ? Patient is on duloxetine 6. Hypertension - Blood pressure controlled, home medications continued with dose adjustment as needed 7. GERD On PPI 8. DVT prophylaxis - On enoxaparin Time spent in the patient's overall evaluation,decision-making process, review of diagnostic data, adjustment of management, discussion with other providers, nursing nursing and ancillary staff involved in patient's care documentation, 35 minutes Medications at Discharge Home Medications calcium carbonate 500 mg calcium (1,250 mg) tablet 500 mg PO DAILY@0800 supplement 08/16/13 levothyroxine 100 mcg tablet 88 mcg PO DAILY thyroid 08/16/13 lisinopril 20 mg tablet 20 mg PO BID htn 08/16/13 cyanocobalamin (vitamin B-12) 500 mcg tablet 1,000 mcg PO DAILY@0800 08/25/19 aspirin 81 mg tablet,delayed release 81 mg PO DAILY 05/27/22 duloxetine 20 mg capsule,delayed release 20 mg PO DAILY 02/14/23 multivitamin (Daily Multi-Vitamin tablet) 1 tab PO DAILY SUPPLEMENT 02/14/23 Hospital Course Summary of Care Provided Minutes Spent on Discharge: 35 Physical Exam Narrative GENERAL: cooperative HEENT: Atraumatic; normocephalic EYES; Anicteric, Normal Conjunctiva NECK; supple, normal thyroid, RESPIRATORY: Diminished to auscultation CARDIOVASCULAR: Regular S1 S2, GI: soft, normoactive bowel sounds, : No Renal angle tenderness; EXTREMITIES: No edema, no clubbing, MUSCULOSKELETAL: no muscle wasting NEURO: Awake; no lateralizing signs. SKIN: No Rash PSYCH; Flat affect Weight / BMI Weight Weight: 60.2 kg Body Mass Index (BMI) 20.7 ABG / Lab / Microbiology Data 02/15/23 05:03 02/15/23 05:03 Laboratory: Laboratory Results - last 24 hr 02/14/23 13:15: WBC 8.8, RBC 3.69 L, Hgb 11.7 L, Hct 36.7 L, MCV 99.5 H, MCH 31.7, MCHC 31.9 L, RDW Std Deviation 47.9 H, RDW Coeff of Cassandra 13.1, Plt Count 178, MPV 11.4, Immature Gran % (Auto) 0.500, Neut % (Auto) 88.5 H, Lymph % (Auto) 8.5 L, [place] % (Auto) 2.1, Eos % (Auto) 0.1, Baso % (Auto) 0.3, Absolute Neuts (auto) 7.8 H, Absolute Lymphs (auto) 0.74 L, Nucleated RBC % 0, Sodium 137, Potassium 3.6, Chloride 106, Carbon Dioxide 27.0, Anion Gap 4 L, BUN 22 H, Creatinine 0.84, Estim Creat Clear Calc 51.94, Est GFR (MDRD) Af Amer 84, Est GFR (MDRD) Non-Af 70, BUN/Creatinine Ratio 26.3 H, Glucose 147 H, Calcium 8.7 02/14/23 15:49: Urine Color Yellow, Urine Clarity Clear, Urine pH 7.0, Ur Specific [place] 1.010, Urine Protein Negative, Urine Glucose (UA) 50 H, Urine Ketones 5 H, Urine Occult Blood Negative, Urine Nitrite Negative, Urine Bilirubin Negative, Urine Urobilinogen Normal, Ur Leukocyte Esterase Negative, Urine RBC 0 SEEN, Urine WBC 0 SEEN, Ur Squamous Epith Cells 0-5 SEEN, Urine Bacteria RARE, Urine Mucus 0 SEEN 02/15/23 05:03: WBC 7.7, RBC 3.40 L, Hgb 10.9 L, Hct 33.6 L, MCV 98.8, MCH 32.1 H, MCHC 32.4, RDW Std Deviation 47.2 H, RDW Coeff of Cassandra 13.1, Plt Count 182, MPV 11.8, Immature Gran % (Auto) 0.100, Neut % (Auto) 70.5 H, Lymph % (Auto) 21.0, [place] % (Auto) 7.5, Eos % (Auto) 0.5, Baso % (Auto) 0.4, Absolute Neuts (auto) 5.4, Absolute Lymphs (auto) 1.62, Nucleated RBC % 0, Sodium 141, Potassium 3.5, Chloride 110 H, Carbon Dioxide 27.0, Anion Gap 4 L, BUN 16, Creatinine 0.84, Estim Creat Clear Calc 50.76, Est GFR (MDRD) Af Amer 84, Est GFR (MDRD) Non-Af 70, BUN/Creatinine Ratio 19.2, Glucose 94, Calcium 8.2 L, Phosphorus 3.5, Magnesium 2.2, Triglycerides 78, Cholesterol 176, LDL Cholesterol 90, VLDL Cholesterol 16, HDL Cholesterol 70 Radiography Diagnostic Testing: Radiology Impression Brain CT 02/14/23 13:03 IMPRESSION: Chronic involutional changes of the brain. Stable examination. Electronically Signed: Yang Bolden MD at 13:57 EDT , Brain MRI 02/14/23 16:40 IMPRESSION: Involutional changes of the brain, as described above. Electronically Signed: Be Cornell MD at 20:38 EDT , Head/Neck CTA 02/14/23 16:40 IMPRESSION: No finding of arterial stenosis, occlusion, or dissection. Multifocal FMD. Electronically Signed: Cory Alves MD at 17:32 EDT , ADDENDUM: 02/14/23 3575 IMPRESSION: No finding of arterial stenosis, occlusion, or dissection. Multifocal FMD. N.B. : The above Results were Read Back by Cory Alves MD to Al Bassett AA, and understanding confirmed on 02/14/2023 17:48:49 (ET). Electronically Signed: Cory Alves MD at 17:32 EDT Reading Location ID and State: [facility] / [place] Tel , Service support , D/C Instructions Discharge Diet: No restrictions Discharge Activity: Return to Normal Activity Call your doctor if you observe: Fever of 101 or Higher, Shortness of breath, Fainting spells and Chest pain Meaningful Use Info Meaningful Use Diagnoses (Choose all that apply): None applicable Discharge Plan Admission Admit Date/Time: 02/14/23 16:32 Attending Provider: Talat Martínez Primary Care Provider: Antonella Loyola Discharge Orders/Prescriptions Prescriptions: Continued lisinopril 20 MG tablet 20 mg PO BID levothyroxine 100 MCG tablet 88 mcg PO DAILY calcium carbonate 500 MG tablet 500 mg PO DAILY@0800 cyanocobalamin (vitamin B-12) 500 MCG tablet 1,000 mcg PO DAILY@0800 aspirin 81 mg Tablet,Delayed Release (Dr/Ec) 81 mg PO DAILY duloxetine 20 mg capsule,delayed release(DR/EC) 20 mg PO DAILY multivitamin [Daily Multi-Vitamin] Tablet 1 tab PO DAILY Referrals / Follow Up: Antonella Loyola DO [Primary Care Provider] - Within 1 Week Disposition Disposition (needs filled in before D/C Order can be placed): Home, Self Care Charges/Coding Visit Charges Inpatient E&M: 51397 Disch Hosp >30min
--- NOTE | 2023-02-15 12:15 | PHA.DC.MR.R ---
Pharmacy [place] Med Reconciliation Pharmacy Service has performed discharge medication reconciliation for this patient. The patient's discharge medication list was reviewed for discrepancies and discrepancies were resolved. Medications at Discharge Home Medications calcium carbonate 500 mg calcium (1,250 mg) tablet 500 mg PO DAILY@0800 supplement 08/16/13 levothyroxine 100 mcg tablet 88 mcg PO DAILY thyroid 08/16/13 lisinopril 20 mg tablet 20 mg PO BID htn 08/16/13 cyanocobalamin (vitamin B-12) 500 mcg tablet 1,000 mcg PO DAILY@0800 08/25/19 aspirin 81 mg tablet,delayed release 81 mg PO DAILY 05/27/22 duloxetine 20 mg capsule,delayed release 20 mg PO DAILY 02/14/23 multivitamin (Daily Multi-Vitamin tablet) 1 tab PO DAILY SUPPLEMENT 02/14/23
[2023-02-15 13:51] VITALS: BP 134/78; PULSE 77; RESP 16; TEMP 36.9; O2SAT 97
--- NOTE | 2023-02-15 15:26 | CASEMGMT ---
RN CM: This RN CM met with pt and spouse face to face at chairside. Pt alert but noted to be TRIBAL and having difficulty answering some questions. Noted pt with dementia which pt's spouse also notes. Pt and spouse relay that pt is independent with ADLs and is active at home especially working in her flower beds. Pt's spouse is supportive and assists pt as needed due to memory issues. Pt also noted other family members that assist as needed. Pt and spouse deny any discharge needs at this time. Noted therapy evals without further therapy needed. Spouse requested appointment with PCP be made. This RN CM attempted to contact Dr. Loyola office and voicemail received. Message left requesting a return call to schedule follow-up appointment. Plan: Return home with the support of spouse and family. Reagan Carrasquillo RN CM
[2023-02-15 15:48] VITALS: BMI 20.7
--- NOTE | 2023-02-16 09:30 | CASEMGMT ---
Follow-up for appointment per pt's spouse's request. Appointment obtained with pt's PCP for 02/22 at 1250. Pt and pt's spouse notified of appointment date and time. Reagan Carrasquillo RN CM
== END 2023-02-15 16:16 | disposition home or self-care (01) ==
LOC: ED 16:40 → PCU 17:15
PROVIDERS: Admitting Provider Internal Medicine; Emergency Provider Emergency Medicine; PCP Family Medicine; Visit Provider Internal Medicine
DX: R42 Dizziness and giddiness (principal); I10 Essential (primary) hypertension; R11.2 Nausea with vomiting, unspecified; M54.30 Sciatica, unspecified side; E89.0 Postprocedural hypothyroidism; Z79.899 Other long term (current) drug therapy; Z79.890 Hormone replacement therapy; Z79.82 Long term (current) use of aspirin; K21.9 Gastro-esophageal reflux disease without esophagitis; F41.9 Anxiety disorder, unspecified; F32.A Depression, unspecified
CPT/HCPCS: 36415; 70450; 70496; 70498; 70551; 80048; 80061; 81001; 83735; 84100; 85025; 92610; 93005; 93306; 94762; 96361; 96372; 96374; 97162; 97166; 99221; 99285; J7030; Q9967; A4216; G0378; J2405

== ENCOUNTER 2023-07-04 09:11 | Emergency (ER) | payer MEDICARE, OTHER, SELFPAY ==
[2023-07-04 09:12] VITALS: PULSE 85; RESP 16; TEMP 36.4; O2SAT 97
--- NOTE | 2023-07-04 09:15 | ED.RN ---
walked pt back to room, medic in starting line. charge aware of pt to address with
[2023-07-04 09:20] VITALS: BMI 18.9
--- NOTE | 2023-07-04 09:49 | CT_ITS ---
STUDY: CT BRAIN WITHOUT CONTRAST REASON FOR EXAM: Female, 82 years old. Severe headache RADIATION DOSAGE (If Supplied By Facility): CTDIvol = ( 44.99 ) mGy, DLP = ( 812.98 ) mGycm TECHNIQUE: Transaxial CT imaging of the brain was performed without administration of intravenous contrast material. Individualized dose optimization techniques were used for this CT. COMPARISON: No relevant priors. FINDINGS: Normal soft tissue structures. Normal calvarium. There is mild cerebral atrophy with widening of the extra-axial spaces and ventricular dilatation. There are areas of decreased attenuation within the white matter tracts of the supratentorial brain, consistent with microvascular disease changes. Normal basal ganglia and thalami. Normal brainstem. Normal cerebellum. There is no intracranial hemorrhage. There are no findings of an acute ischemic infarction. Mild degree of mucosal thickening of the maxillary sinuses bilaterally. Partial opacification of the ethmoid sinuses. CT/Brain/Head without Contrast IMPRESSION: Chronic involutional changes of the brain. Mild sinusitis. Electronically Signed: Yang Bolden MD at 10:57 EST ,
[2023-07-04] MEDS: Morphine 2 MG/ML Syringe IV (10:00)
[2023-07-04] MEDS: Ondansetron 4 MG/2 ML Vial IV (10:00)
--- NOTE | 2023-07-04 10:04 | EDS_ITS ---
HPI History of Present Illness Chief Complaint: Headache Informant: patient and spouse/S.O. Limited: dementia Onset/Context/Timing Onset: Today Context: Sudden Timing: Continuous Location: Generalized Current Severity: Severe Maximum Severity: Severe Worsened by: Nothing Relieved by: Nothing Associated Symptoms/Injury Associated Symptoms: Negative for Fever, Nausea, Vomiting, Sore Throat, Sinus Pressure, Numbness, Tingling, Preceding Aura, Visual Changes, Blurred Vision, Photophobia or Visual Loss Injury - WRIGHT: Negative for Direct Trauma Narrative Narrative: Patient is an 82-year-old woman who is slightly more confused than normal. She has history of dementia. She had an abrupt onset of headache last evening watching TV. She says it hurts badly. She is unable to quantitate her qualitate anymore. informed that she has significant dementia. There is been no documented fever. She denies ringing or ears or decreased hearing. She denies runny nose, congestion or postnasal drainage. She denies sore throat. Denies neck pain or neck stiffness. She denies sensitivity to light or sound. She denies nausea, vomiting or diarrhea. She denies dysuria, frequency, urgency or hematuria. She has not had a urinary tract infection in some time. Prior similar symptoms: No Recent Illness/Hospitalization: No PFSH [facility] Medical History Anxiety Arthritis Depression Enteritis Environmental allergies HTN (hypertension) Hypothyroid Migraines Non-smoker Sciatica Thyroid cancer Home Medications calcium carbonate 500 mg calcium (1,250 mg) tablet 500 mg PO DAILY@0800 supplement 08/16/13 [History Last Taken 02/14/23] levothyroxine 100 mcg tablet 88 mcg PO DAILY thyroid 08/16/13 [History Last Taken 02/14/23] lisinopril 20 mg tablet 20 mg PO BID htn 08/16/13 [History Last Taken 02/14/23] cyanocobalamin (vitamin B-12) 500 mcg tablet 1,000 mcg PO DAILY@0800 08/25/19 [History Last Taken 02/14/23] aspirin 81 mg tablet,delayed release 81 mg PO DAILY 05/27/22 [History Last Taken 02/14/23] duloxetine 20 mg capsule,delayed release 20 mg PO DAILY 02/14/23 [History Last Taken 02/14/23] multivitamin (Daily Multi-Vitamin tablet) 1 tab PO DAILY SUPPLEMENT 02/14/23 [History Last Taken 02/14/23] Allergy/AdvReac Type Severity Reaction Status Date / Time No Known Allergies Allergy Verified 07/04/23 09:17 Surgical History H/O thyroidectomy History of facial surgery S/P hysterectomy s/p pelvic floor reconstruction Social History household members: spouse Smoking Status: Never smoker alcohol intake: never substance use type: does not use ROS ROS ED Review of Systems ROS Unobtainable: due to mental status EXAM Physical Exam Const Vital Signs: 07/04/23 09:12 Temperature 97.5 F L Temperature Source Temporal Pulse Rate 85 Respiratory Rate 16 Pulse Ox 97 Oxygen Delivery Method Room Air Positive well nourished and well developed General Appearance ED: well developed and NAD; Negative for cyanotic, diaphoretic or pallor HEENT Reports normocephalic, TM's clear and moist mucous membranes HEENT Narrative: There is no tenderness over the right or left temporal region. atraumatic Tympanic Membrane ED: Yes TM's clear Eyes PERRL and EOMs intact bilaterally Eyes Narrative: There is no nystagmus. There is no visual field cut. General Eye ED: Negative for pale conjunctiva or scleral icterus Neck no lymphadenopathy, supple, no meningeal signs and no JVD Resp normal respiratory effort and clear to auscultation bilaterally Cardio regular rate, regular rhythm, S1 normal heart sound, S2 normal heart sound and no murmurs GI non-tender and non-distended Auscultation: normoactive bowel sounds Back/Spine no CVA tenderness Thoracic Spine / Upper Back: Negative for thoracic spinal tenderness Lumbar Spine / Lower Back: Negative for lumbar spinal tenderness Extremity normal to inspection, full ROM and normal capillary refill General Extremety ED: Negative for edema General Extremity: Negative for edema Neuro oriented x3, CN's II-XII intact bilaterally and no sensory deficits noted Neuro Narrative: Patient has equivocal Babinski on the left. There is no clonus right or left. Jaciel Coma Scale: document GCS findings Spontaneous Obeys Commands Confused 14 Sensorium / Orientation: awake Motor Exam: strength 5/5 throughout Psych Mood & Affect: depressed Skin General Skin Exam: Negative for elasticity normal, turgor normal, jaundice or pallor Lesions: no lesions Rashes: no rashes MDM MDM MDM Narrative Medical decision making narrative: Differential diagnosis would include vascular headache, intracranial bleed, temporal arteritis, tension headache. History is limited due to the fact she h as dementia. CT was obtained to assess for evidence of sinusitis or intracranial bleed. CBC does white count differential. Electrolyte panel was obtained determine renal function in the event that his CT angio is required. Lab Data Attestation: I reviewed the patient's lab results. Lab results narrative: CBC is normal. Sed rate is normal. Basic metabolic panel slight elevation of glucose 124 with a normal CO2 and anion gap. Labs: Laboratory Results - last 24 hr 07/04/23 09:20 WBC 8.7 RBC 3.81 L Hgb 12.0 Hct 37.6 MCV 98.7 MCH 31.5 MCHC 31.9 L RDW Std Deviation 49.3 H RDW Coeff of Cassandra 13.5 Plt Count 163 MPV 12.4 H Immature Gran % (Auto) 0.500 Neut % (Auto) 84.9 H Lymph % (Auto) 6.7 [place] % (Auto) 7.2 Eos % (Auto) 0.2 Baso % (Auto) 0.5 Absolute Neuts (auto) 7.4 Absolute Lymphs (auto) 0.58 L Nucleated RBC % 0 Differential Comment SCANNED ESR 19 Sodium 137 Potassium 3.5 Chloride 103 Carbon Dioxide 28.0 Anion Gap 6 BUN 19 H Creatinine 0.88 Estim Creat Clear Calc 44.19 Est GFR (MDRD) Af Amer 79 Est GFR (MDRD) Non-Af 65 BUN/Creatinine Ratio 21.5 H Glucose 124 H Calcium 8.8 Radiography Diagnostic Testing: Clinical Impression(s) from Imaging Studies Brain CT 07/04/23 09:49 IMPRESSION: Chronic involutional changes of the brain. Mild sinusitis. Electronically Signed: Yang Bolden MD at 10:57 EST , Treatment and Re-Evaluation Narrative: Patient was reassessed at 07/25/2001. Patient's headache is resolved. was made aware of the CAT scan results and laboratory results. Plan is to discharge to home. Discharge Plan Triage Chief Complaint: Headache ED Provider: Al Bassett Dx/Rx/DC Orders Clinical Impression: Acute headache, Dementia, HTN (hypertension) Instructions: ED Pain, Acute, Uncertain Cause Prescriptions: No Action lisinopril 20 MG tablet 20 mg PO BID levothyroxine 100 MCG tablet 88 mcg PO DAILY calcium carbonate 500 MG tablet 500 mg PO DAILY@0800 cyanocobalamin (vitamin B-12) 500 MCG tablet 1,000 mcg PO DAILY@0800 aspirin 81 mg Tablet,Delayed Release (Dr/Ec) 81 mg PO DAILY duloxetine 20 mg capsule,delayed release(DR/EC) 20 mg PO DAILY multivitamin [Daily Multi-Vitamin] Tablet 1 tab PO DAILY Primary Care Provider: Antonella Loyola Referrals: Antonella Loyola DO [Primary Care Provider] - As Needed Disposition Disposition: Home, Self Care
[2023-07-04 10:08] LABS: Erythrocyte Sedimentation Rate 19 mm/hr (0-30)
[2023-07-04 10:09] LABS: Absolute Lymphocyte Count 0.58 X10^3/uL (0.83-4.51); Absolute Neutrophil Count 7.4 X10^3/uL (2.0-7.7); Basophil# 0.04 X10^3/uL; Basophil% 0.5 % (0-1); Eosinophil# 0.02 X10^3/uL; Eosinophils% 0.2 % (0-5); Hematocrit 37.6 % (37-47); Lymphocyte # 0.58 X10^3/ul (0.83-4.51); Lymphocyte % 6.7 % (19-41); Mean Corp Hgb Conc 31.9 g/dL (32-36); Mean Corpuscular Hgb 31.5 pg (27.0-32.0); Mean Corpuscular Volume 98.7 fL (81-99); Mean Platelet Vol. 12.4 fl (6.2-12.0); Monocyte# 0.63 X10^3/uL; Monocyte% 7.2 % (0-10); NRBC Flagged by Analyzer 0 % (0-5); Neutrophil # 7.38 X10^3/uL (2.7-7.7); Neutrophil % 84.9 % (47-70); POSITIVE DIFFERENTIAL YES; Platelet Count 163 K/mm3 (150-450); RBC Distribution Width CV 13.5 % (11.6-14.6); RBC Distribution Width SD 49.3 fl (35.1-43.9); Red Blood Count 3.81 M/mm3 (4.2-5.4); White Blood Count 8.7 K/mm3 (4.4-11.0)
[2023-07-04 10:10] LABS: Differential Indicated SCAN CRITERIA MET
[2023-07-04 10:31] LABS: Anion Gap 6 (5-15); BUN 19 mg/dL (7-18); BUN/Creat Ratio 21.5 RATIO (10-20); Calcium,Total 8.8 mg/dL (8.5-10.1); Chloride 103 mmol/L (98-107); Creatinine, Serum 0.88 mg/dL (0.55-1.02); EST Glomerular Filtration Rate 65 mL/min (>60); Est Glom Filt Rate - Afr Amer 79 mL/min (>60); Estimated Creatinine Clearance 44.19 ml/min; Glucose 124 mg/dL (74-106); Potassium 3.5 mmol/L (3.5-5.1); Sodium Level 137 mmol/L (136-145)
[2023-07-04 10:32] LABS: Differential Comment SCANNED
[2023-07-04 11:13] VITALS: BP 161/89; PULSE 74; RESP 16; O2SAT 97
== END 2023-07-04 11:19 | disposition home or self-care (01) ==
PROVIDERS: Emergency Provider Emergency Medicine; PCP Family Medicine; Visit Provider Emergency Medicine
DX: R51.9 Headache, unspecified (principal); F03.90 Unspecified dementia, unspecified severity, without behavioral disturbance, psychotic disturbance, mood disturbance, and anxiety; I10 Essential (primary) hypertension; E03.9 Hypothyroidism, unspecified; Z85.850 Personal history of malignant neoplasm of thyroid
CPT/HCPCS: 70450; 80048; 85025; 85652; 96374; 96375; 99283; A4216; J2405

== ENCOUNTER 2023-07-04 17:33 | Emergency (ER) | payer MEDICARE, OTHER, SELFPAY ==
[2023-07-04 17:35] VITALS: BP 170/91; PULSE 89; RESP 16; TEMP 36.4; O2SAT 96; BMI 18.3
--- NOTE | 2023-07-04 18:22 | EX.ED.VIS.HA ---
HPI History of Present Illness Chief Complaint: Headache Narrative Narrative: 82-year-old female past medical history of dementia, was seen in the emergency department earlier today for acute headache. Her relates history that they were told that it may be secondary to her blood pressure. She had CT performed along with laboratory work. She received a small dose of morphine and ondansetron which temporarily relieved her headache. states that she went home, took a nap, then started complaining of pain again. It is above her eyes and around her nose. She has had nasal congestion but no fever. He thought that she was in a large amount of discomfort so he returned to the emergency department. [facility] Medical History Anxiety Arthritis Depression Enteritis Environmental allergies HTN (hypertension) Hypothyroid Migraines Non-smoker Sciatica Thyroid cancer Home Medications calcium carbonate 500 mg calcium (1,250 mg) tablet 500 mg PO DAILY@0800 supplement 08/16/13 [History Last Taken 02/14/23] levothyroxine 100 mcg tablet 88 mcg PO DAILY thyroid 08/16/13 [History Last Taken 02/14/23] lisinopril 20 mg tablet 20 mg PO BID htn 08/16/13 [History Last Taken 02/14/23] cyanocobalamin (vitamin B-12) 500 mcg tablet 1,000 mcg PO DAILY@0800 08/25/19 [History Last Taken 02/14/23] aspirin 81 mg tablet,delayed release 81 mg PO DAILY 05/27/22 [History Last Taken 02/14/23] duloxetine 20 mg capsule,delayed release 20 mg PO DAILY 02/14/23 [History Last Taken 02/14/23] multivitamin (Daily Multi-Vitamin tablet) 1 tab PO DAILY SUPPLEMENT 02/14/23 [History Last Taken 02/14/23] Allergy/AdvReac Type Severity Reaction Status Date / Time No Known Allergies Allergy Verified 07/04/23 09:17 Surgical History H/O thyroidectomy History of facial surgery S/P hysterectomy s/p pelvic floor reconstruction Social History household members: spouse Smoking Status: Never smoker alcohol intake: never substance use type: does not use ROS ROS ED ROS Narrative Limited secondary to dementia. Constitutional: No fever, no chills. HEENT: No sore throat. No neck pain. No loss of vision. Positive nasal congestion with occasional rhinorrhea. Cardiovascular: No chest pain. No palpitations. No pedal edema. Respiratory: No cough, no shortness of breath. Abdominal: No abdominal pain. No nausea. No vomiting. Genitourinary: No dysuria. No hematuria. Musculoskeletal: No myalgias. No arthralgias. Neurologic: Positive frontal headaches. No dizziness. No lightheadedness. Skin: No rash. No change in color. Psychiatric: No depression. No anxiety. EXAM Physical Exam Narrative Exam Narrative: Afebrile. Vital signs noted. HEENT: Normocephalic. Atraumatic. PERRL, EOMI. Neck soft and supple. No point tenderness or step off. Positive nasal congestion. Tenderness to percussion of sinuses. Cardiovascular: Regular rate and rhythm. No murmurs, rubs, or gallops appreciated. Respiratory: No tachypnea. Lungs clear to auscultation bilaterally. Gastrointestinal: Abdomen soft, nontender, with normoactive bowel sounds. No rebound or guarding. Neurological: Awake. Alert. Nonfocal, nonlateralizing. Consistent with dementia. Skin: No rash. Normal color. No pallor. Musculoskeletal: No pedal edema. Full range of motion extremities. Const Vital Signs: 07/04/23 17:35 Temperature 97.5 F L Temperature Source Temporal Pulse Rate 89 Respiratory Rate 16 Blood Pressure 170/91 H Blood Pressure Mean 117 Pulse Ox 96 Oxygen Delivery Method Room Air MDM MDM MDM Narrative Medical decision making narrative: I reviewed the patient's prior workup and ED visit. The review of her CT shows that she has mild thickening of the maxillary sinuses. She will be treated with an antihistamine in the form of Claritin, and with Tylenol. I did review her medication history and she did receive morphine 2 mg. She may be having more of a rebound headache. I discussed the utility of CT repeat with her , and it was not deemed necessary. Additionally, she just had laboratory work done this morning. I do feel she may have more of a sinus headache which is in the differential as well. Although her blood pressure is slightly elevated, I have low concern for hypertensive encephalopathy and headache. Upon repeat examination, after nasal steroid as well, she feels improved. I feel she be discharged safely home with follow-up. I do not feel that she requires admission at this time or any repeat imaging. I do feel that she probably has more of a rebound headache and sinus headache. They were told to use pjgx-zfp-fjapuiw medications such as Claritin, and Coricidin HBP and to avoid use of pseudoephedrine like products for decongestion, as this will raise her blood pressure. I do not feel she requires admission. Patient's is agreeable to the plan. Disposition is discharged home in stable condition. History & Record Review Discussion w/independent historian: Patient and Family () Additional record(s) reviewed:: Prior ED visit and Prior labs Discharge Plan Triage Chief Complaint: Headache ED Provider: Marcos Beckford Dx/Rx/DC Orders Clinical Impression: Sinus headache, Headache above the eye region Instructions: ED Headache Unspecified, ED Sinus Headache Prescriptions: No Action lisinopril 20 MG tablet 20 mg PO BID levothyroxine 100 MCG tablet 88 mcg PO DAILY calcium carbonate 500 MG tablet 500 mg PO DAILY@0800 cyanocobalamin (vitamin B-12) 500 MCG tablet 1,000 mcg PO DAILY@0800 aspirin 81 mg Tablet,Delayed Release (Dr/Ec) 81 mg PO DAILY duloxetine 20 mg capsule,delayed release(DR/EC) 20 mg PO DAILY multivitamin [Daily Multi-Vitamin] Tablet 1 tab PO DAILY Primary Care Provider: Antonella Loyola Referrals: Antonella Loyola DO [Primary Care Provider] - 1-2 Days if not improving Activity Restrictions/Additional Instructions: Use vmwi-dqr-owcgugx medications like Claritin is an antihistamine. You may also use a decongestant such as Coricidin HBP. Avoid use of pseudoephedrine or products that will elevate her blood pressure. You may use the nasal steroid 1 spray per nostril per day for up to 5 days. Disposition Disposition: Home, Self Care
[2023-07-04] MEDS: Fluticasone 0.05% 1 SPRAY NASAL.SRY NASAL (18:56)
[2023-07-04] MEDS: Acetaminophen 500 MG Tablet 1000 MG PO (18:56)
[2023-07-04] MEDS: Loratadine 10 MG Tablet PO (18:56)
== END 2023-07-04 20:09 | disposition home or self-care (01) ==
PROVIDERS: Emergency Provider Emergency Medicine; PCP Family Medicine; Referring Provider Emergency Medicine; Visit Provider Emergency Medicine
DX: R51.9 Headache, unspecified (principal); R09.81 Nasal congestion; I10 Essential (primary) hypertension; E03.9 Hypothyroidism, unspecified; Z85.850 Personal history of malignant neoplasm of thyroid; Z79.82 Long term (current) use of aspirin
CPT/HCPCS: 99282

== ENCOUNTER → 2024-01-09 | Outpatient (CLI) | payer MEDICARE, OTHER, SELFPAY ==
[2024-01-09 09:56] LABS: Absolute Lymphocyte Count 1.67 X10^3/uL (0.83-4.51); Absolute Neutrophil Count 3.7 X10^3/uL (2.0-7.7); Basophil# 0.04 X10^3/uL; Basophil% 0.7 % (0-1); Eosinophils% 1.7 % (0-5); Hematocrit 36.7 % (37-47); Hemoglobin 11.5 g/dL (12.0-15.0); Lymphocyte # 1.67 X10^3/ul (0.83-4.51); Lymphocyte % 27.7 % (19-41); Mean Corp Hgb Conc 31.3 g/dL (32-36); Mean Corpuscular Hgb 31.6 pg (27.0-32.0); Mean Corpuscular Volume 100.8 fL (81-99); Mean Platelet Vol. 12.6 fl (6.2-12.0); Monocyte# 0.47 X10^3/uL; Monocyte% 7.8 % (0-10); NRBC Flagged by Analyzer 0 % (0-5); Neutrophil # 3.74 X10^3/uL (2.7-7.7); Neutrophil % 61.9 % (47-70); Platelet Count 172 K/mm3 (150-450); RBC Distribution Width CV 13.2 % (11.6-14.6); RBC Distribution Width SD 48.9 fl (35.1-43.9); Red Blood Count 3.64 M/mm3 (4.2-5.4)
[2024-01-09 12:02] LABS: ALB/GLOB Ratio 1.1 RATIO (0.9-2.4); AST(SGOT) 18 U/L (15-37); Alanine Aminotransfer ALT/SGPT 15 U/L (13-56); Albumin, Serum 3.6 g/dL (3.2-5.0); Alkaline Phosphatase 49 U/L (45-117); Anion Gap 4 (5-15); BUN 24 mg/dL (7-18); BUN/Creat Ratio 23.1 RATIO (10-20); Calcium,Total 9.1 mg/dL (8.5-10.1); Chloride 108 mmol/L (98-107); Cholesterol 195 mg/dL (200); Creatinine, Serum 1.04 mg/dL (0.55-1.02); EST Glomerular Filtration Rate 54 mL/min (>60); Est Glom Filt Rate - Afr Amer 65 mL/min (>60); Free T3 2.3 pg/mL (2.18-3.98); Globulin 3.2 g/dL (2.2-4.2); Glucose 57 mg/dL (74-106); High Density Lipoprotein 69 mg/dL; Potassium 3.8 mmol/L (3.5-5.1); Protein, Total 6.8 g/dL (6.4-8.2); Sodium Level 142 mmol/L (136-145); T4 Free Direct 1.21 ng/dL (0.76-1.46); Thyroid Stim Hormone (TSH) 0.46 uIU/mL (0.358-3.74); Triglycerides 93 mg/dL; Very Low Density Lipoprotein 19 mg/dL (5-40)
== END | disposition home or self-care (01) ==
PROVIDERS: PCP Family Medicine; Referring Provider Family Medicine; Visit Provider Family Medicine
DX: E03.9 Hypothyroidism, unspecified (principal); I10 Essential (primary) hypertension; Z51.81 Encounter for therapeutic drug level monitoring; E78.5 Hyperlipidemia, unspecified
CPT/HCPCS: 36415; 80053; 80061; 84439; 84443; 84481; 85025

== ENCOUNTER → 2024-02-15 | Outpatient (CLI) | payer MEDICARE, OTHER, SELFPAY ==
--- NOTE | 2024-02-15 14:37 | BI_ITS ---
MAMMOGRAPHY - BILATERAL SCREENING REASON FOR EXAM: Female, 83 years old. Routine annual screening examination. PERTINENT HISTORY: Non-contributory. TECHNIQUE: Digital bilateral breast desirae (3D mammographic acquisition) in the CC and MLO projections. 2-D mediolateral oblique (MLO) and craniocaudad (CC) views of both breasts were obtained. CAD: Full Field Digital Mammography with Computer Added Detection was performed. COMPARISON: Comparison is made with prior study October 31, 2017 and October 22, 2015. FINDINGS: Breast Composition: The breasts are heterogeneously dense, which may obscure small masses. There are no dominant masses or suspicious calcifications. No other significant abnormalities are identified. There has been no significant change since the prior study. BI/SCRN MAMM (CAD)W/DESIRAE BILAT IMPRESSION: Stable bilateral screening mammogram. Yearly follow-up mammogram recommended. (A) ASSESSMENT CATEGORY: BIRADS Category 1: Negative. A letter regarding these results will be sent to the patient by the facility within 30 days. Approximately 10% of breast cancers are not detected by mammography. A normal mammogram should not delay biopsy of a clinically suspicious abnormality. [id number] Electronically Signed: Yang Bolden MD at 15:27 EDT ,
--- NOTE | 2024-02-15 15:01 | BD_ITS ---
STUDY: DUAL ENERGY X-RAY ABSORPTIOMETRY / DXA REASON FOR EXAM: Female, 83 years old. M810 TECHNIQUE: Bone Mineral Density (BMD) measurements of lumbar spine and bilateral hips were obtained. COMPARISON: Comparison is made with prior study dated August 12, 2015. FINDINGS: Lumbar Spine (L1-L4): g/cm2 (0.769) / T-score (-2.3) / Z-score (0.4) Findings are suggestive of osteopenia with a high fracture risk. Left Femur Total: g/cm2 (0.626) / T-score (-2.6) / Z-score (-0.5) Left Femoral Neck: g/cm2 (0.571) / T-score (-2.5) / Z-score (-0.1) Right Femur Total: g/cm2 (0.632) / T-score (-2.5) / Z-score (-0.4) Right Femoral Neck: g/cm2 (0.564) / T-score (-2.6) / Z-score (-0.2) The T-Scores on the most recent prior examination were: Lumbar Spine (L1-L4): There has been worsening of bone density since the previous examination. Left Femur Total: which represents a worsening of 8.2%. Right Femur Total: which represents a worsening of 6.1%. BD/Dexa Bone Density Study IMPRESSION: The patient is considered osteoporotic as outlined below according to World Rodriguez Organization (WHO) criteria with a high fracture risk. There has been worsening of bone density since the previous examination. Reference Information: The T-score is the number of standard deviations above or below the standard which is normal for young adults at their peak bone mineral density. The World Health Organization (WHO) interprets the T-scores as follows: Above -1 Normal bone density Between -1 and -2.5 Osteopenia Equal to / or below -2.5 Osteoporosis As a practical clinical guideline, osteopenia may be graded as follows: Mild -1 through -1.5 Moderate -1.6 through -2.0 Severe -2.1 through -2.4 The Z-score is the number of standard deviations above or below age-matched controls. A Z-score of less than -1.5 would be considered abnormal. References: 1. NIH Osteoporosis and Related Bone Diseases www osteo.org 2. International Society for Clinical Densitometry www iscd.org 3. National Osteoporosis Foundation www nof.org Electronically Signed: Yang Bolden MD at 10:06 EDT ,
== END | disposition home or self-care (01) ==
PROVIDERS: PCP Family Medicine; Referring Provider Family Medicine; Visit Provider Family Medicine
DX: Z12.31 Encounter for screening mammogram for malignant neoplasm of breast (principal); M81.0 Age-related osteoporosis without current pathological fracture
CPT/HCPCS: 77063; 77067; 77080

== ENCOUNTER → 2024-02-24 | Outpatient (CLI) | payer MEDICARE, OTHER, SELFPAY ==
--- NOTE | 2024-02-24 07:52 | US_ITS ---
STUDY: ULTRASOUND BREAST - LEFT REASON FOR EXAM: Female, 83 years old. Abnormal screening mammogram. TECHNIQUE: Axial and longitudinal images of the LEFT breast were performed with a high resolution ultrasound transducer. # OF IMAGES: 11 COMPARISON: Comparison is made with prior mammogram dated February 15, 2024. FINDINGS: LEFT Breast: The mammographic abnormality corresponds to 1.1 cm x 1 cm x 1.2 cm hypoechoic irregular mass at the 12:00 position of the breast at 5 cm from the nipple. Biopsy recommended. US/Breast Limited Unilateral IMPRESSION: The mammographic abnormality corresponds to 1.1 cm x 1 cm x 1.2 cm hypoechoic irregular mass at the 12:00 position of the breast at 5 cm from nipple. Biopsy recommended. ASSESSMENT CATEGORY: BIRADS Category 5: Highly Suggestive of Malignancy - Appropriate Action Should Be Taken. A letter regarding these results will be sent to the patient by the facility within 30 days. Electronically Signed: Yang Bolden MD at 14:53 EDT ,
== END | disposition home or self-care (01) ==
LOC: OPUS 07:51
PROVIDERS: PCP Family Medicine; Referring Provider Surgery; Visit Provider Surgery
DX: R92.8 Other abnormal and inconclusive findings on diagnostic imaging of breast (principal)
CPT/HCPCS: 76642

== ENCOUNTER → 2024-02-29 | Outpatient (CLI) | payer MEDICARE, OTHER, SELFPAY ==
--- NOTE | 2024-02-29 | BRBX_PTH ---
PATIENT: ESTRADA MURO LOC: [facility] U#:[id number] AGE/SX: 83/F ROOM: RE02/29/[address]: Dr. Miguel Mariee MD : 1940 BED: DIS: 02/29/2024 SPEC #: [id number] RECD: 02/29/24 16:08 STATUS: YFN AGUSTIN #: [id number] CHARLES: 02/29/24 00:[address]: Miguel Mariee DEPT: SURGICAL PATHOLOGY RECD BY: Ryan Garcia ENTERED: 03/01/24 08:36 SP TYPE: BREAST BX OTHR DR: Dr. Antonella Loyola, DO Tissues: Left breast, NOS Procedures: Surgery Specimen Level IV HEADER OPERATION: Ultrasound guided left breast biopsy PRE-OP DIAGNOSIS: Abnormal mammogram TISSUE SUBMITTED: Left breast biopsy Ischemic Time: 1 minute Fixation Time: 28 hours MICROSCOPIC DIAGNOSIS Left breast, core biopsy: Invasive ductal carcinoma. See synoptic report below. PATI/ 03/02/2024 COMMENT INVASIVE BREAST CANCER SUMMARY: Procedure: Needle core biopsy Specimen Laterality: Left breast Tumor site: Left breast Histologic type: Invasive ductal carcinoma Provisional Histologic grade: 2 Tubule Differentiation Score:2 Nuclear Pleomorphism Score: 2 Mitotic Rate Score: 1 Tumor Size ( greatest dimension): 8.5mm Ductal Carcinoma In situ: Not identified Angiolymphatic Invasion: Not identified Microcalcifications: Focally present Additional Findings: None Breast Marker Study: [id number] ER: >95% WY: 0% Her2: 2+ (equivocal) Ki67:5% The above summary is in compliance with College of [place] [employer] (CAP) Cancer Protocols Checklist and [place] Joint Committee on Cancer (AJCC), Staging Manual, 8th Ed. Case has been reviewed in consultation with Dr. Carrillo who concurs with the above diagnosis. IDC:SJ MICROSCOPIC DESCRIPTION Slides are reviewed. GROSS DESCRIPTION Received in fixative is one container labeled with the patient's name and designated Left breast tissue. The specimen consists of multiple elongated fragments of rosenthal-yellow fibroadipose tissue measuring in aggregate 1.5 x 0.5 x 0.1cm. The entire specimen is submitted in one cassette. JORGE/ 03/01/2024 TC:0 CPT:54993
--- NOTE | 2024-02-29 | IMM_PTH ---
PATIENT: ESTRADA MURO LOC: [facility] U#:[id number] AGE/SX: 83/F ROOM: RE02/29/[address]: Dr. Miguel Mariee MD : 1940 BED: DIS: 02/29/2024 SPEC #: [id number] RECD: 03/02/24 10:59 STATUS: YFN REQ #: [id number] CHARLES: 02/29/24 00:[address]: Miguel Mariee DEPT: IMMUNOHISTOCHEMISTRY RECD BY: Evaristo Blank ENTERED: 03/02/24 10:59 SP TYPE: IMMUNO OTHR DR: Dr. Antonella Loyola DO Tissues: Left breast, NOS Procedures: CALPONIN-1 (add) CK5-6 (add) CK8 (add) E-CAD (add) HER2 CHAVEZ (add) KI-67 (add) P53 (add) RI (add) P40 (add) MOC-31 (add) ER (initial) PHYSICIAN & INSTITUTION [address] [address] SPECIMEN INFORMATION: Tissue Source: Left breast biopsy Clinical Info: Abnormal mammogram Specimen Number: [id number] CPT code: 02826,[id number] METHODOLOGY: Deparaffinized sections of prefer/formalin-fixed tissue or PAP/DQ stained slides are incubated with monoclonal/polyclonal antibodies/oligonucleotide probes. Localization is made via biotin free immunoperoxidase method. Appropriate controls are performed and reacted as expected. Results on target cell population are indicated in the following table: RESULTS: ANTIBODY / CLONE RESULT P53 (DO-7) positive, wild type pattern Ki-67 (30-9) positive, 5% CK8 (00afevR23) positive CK5-6 (D5 & 1684) negative Calponin-1 (IQ606Z) negative P40 (BC28) negative E-Cad (ECH-6) positive MOC-31 (4561) negative MORPHOMETRIC ANALYSIS ER (clone 6F11) >95, strong intensity RI (clone 16/1E2) 0% Her-2Neu (clone CB11) 2+ The test for HER 2 is performed on formalin-fixed paraffin embedded tissue using the CB11 mouse monoclonal antibody (Cell Xola). A 3+ staining pattern is interpreted as positive and is defined as a strong membranous staining involving the entire cell membrane in over 30% of invasive tumor cells. A similar weak staining pattern (2+) involving 10% of the tumor cells is interpreted as equivocal. HER 2 follow-up testing by FISH is recommended for all equivocal results. Reference: [place] Society of Clinical Oncology and the College of [place] [employer] (J. Clin. Oncol. 23: 118-145, 2007). 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 Positive for estrogen receptors (favorable prognostic indicator). Negative for progesterone receptors (favorable prognostic indicator). Equivocal for overexpression of RXU3hlt. 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 Positive for estrogen receptors (favorable prognostic indicator). Negative for progesterone receptors (favorable prognostic indicator). Negative for overexpression of HED1tin. AM/mr 03/06/2024 IN SITU HYBRIDIZATION (ROSINA) FOR HER2 Interpretation: Not Amplified / Negative HER2 : CEP-17 Ratio: 1.1 Average HER2 Signal: 1.9 Average CEP-17 Signal: 1.1 Number of Tumor Cells Scanned: 50 Interpretative Information: The INFORM HER2 Dual RSOINA DNA Probe Cocktail assay is performed on formalin-fixed paraffin embedded tissue and determines HER2 gene status by detecting HER2 copies via silver in situ hybridization (SISH) and Chromosome 17 copies via chromogenic red in situ hybridization on tumor cells. A minimum of 20 cells representing > 10% of contiguous and homogeneous invasive tumor cells were analyzed. HER2 gene status is classified as Non-amplified (HER2/Chr17 ratio < 2.0) or Amplified (HER2/Chr17 ratio greater than or equal to 2.0). If the resulting HER2/Chr17 ratio falls within 1.8 - 2.2 (Borderline), retesting by FISH is recommended. Reference: Loretta SNELL, Bobby HART, Jayjay TORRES, et al: Recommendations for Human Epidermal Growth Factor Receptor 2 Testing in Breast Cancer: [place] Society of Clinical Oncology / College of [place] [employer] Clinical Practice Guideline Update. J Clin Oncol 31:0802-4368, 2013.
--- NOTE | 2024-02-29 | IMM_PTH ---
PATIENT: ESTRADA MURO LOC: [facility] U#:[id number] AGE/SX: 83/F ROOM: RE02/29/[address]: Dr. Miguel Mariee MD : 1940 BED: DIS: 02/29/2024 SPEC #: [id number] RECD: 03/02/24 10:59 STATUS: ADDN REQ #: [id number] CHARLES: 02/29/24 00:[address]: Miguel Mariee DEPT: IMMUNOHISTOCHEMISTRY RECD BY: Evaristo Blank ENTERED: 03/02/24 10:59 SP TYPE: IMMUNO OTHR DR: Dr. Antonella Loyola DO Tissues: Left breast, NOS Procedures: CALPONIN-1 (add) CK5-6 (add) CK8 (add) E-CAD (add) HER2 CHAVEZ (add) KI-67 (add) P53 (add) PA (add) P40 (add) MOC-31 (add) ER (initial) PHYSICIAN & INSTITUTION [facility] [address] [place], [place] [address] ADDENDUM ADDENDUM ADDENDUM ADDENDUM ADDENDUM ADDENDUM ADDENDUM ADDENDUM ADDENDUM ADDENDUM ADDENDUM ADDENDUM ADDENDUM ADDENDUM ADDENDUM ADDENDUM ADDENDUM ADDENDUM ADDENDUM ADDENDUM ADDENDUM 03/06/2024 11:45 ADDENDUM 03/06/2024 11:45 ADDENDUM 03/06/2024 11:45 ADDENDUM 03/06/2024 11:45 ADDENDUM 03/06/2024 11:45 IN SITU HYBRIDIZATION (ROSINA) FOR HER2 Interpretation: Not Amplified / Negative HER2 : CEP-17 Ratio: 1.1 Average HER2 Signal: 1.9 Average CEP-17 Signal: 1.1 Number of Tumor Cells Scanned: 50 Interpretative Information: The INFORM HER2 Dual ROSINA DNA Probe Cocktail assay is performed on formalin-fixed paraffin embedded tissue and determines HER2 gene status by detecting HER2 copies via silver in situ hybridization (SISH) and Chromosome 17 copies via chromogenic red in situ hybridization on tumor cells. A minimum of 20 cells representing > 10% of contiguous and homogeneous invasive tumor cells were analyzed. HER2 gene status is classified as Non-amplified (HER2/Chr17 ratio < 2.0) or Amplified (HER2/Chr17 ratio greater than or equal to 2.0). If the resulting HER2/Chr17 ratio falls within 1.8 - 2.2 (Borderline), retesting by FISH is recommended. Reference: Loretta AC, Bobby CEDEÑOH, Jayjay DG, et al: Recommendations for Human Epidermal Growth Factor Receptor 2 Testing in Breast Cancer: [place] [employer] of Clinical Oncology / [employer] of [place] [employer] Clinical Practice Guideline Update. J Clin Oncol 31:0353-9366, 2013. SPECIMEN INFORMATION: Tissue Source: Left breast biopsy Clinical Info: Abnormal mammogram Specimen Number: [id number] CPT code: 91954,[id number] METHODOLOGY: Deparaffinized sections of prefer/formalin-fixed tissue or PAP/DQ stained slides are incubated with monoclonal/polyclonal antibodies/oligonucleotide probes. Localization is made via biotin free immunoperoxidase method. Appropriate controls are performed and reacted as expected. Results on target cell population are indicated in the following table: RESULTS: ANTIBODY / CLONE RESULT P53 (DO-7) positive, wild type pattern Ki-67 (30-9) positive, 5% CK8 ([id number]) positive CK5-6 (D5 & 1684) negative Calponin-1 (MG826H) negative P40 (BC28) negative E-Cad (ECH-6) positive MOC-31 (4561) negative MORPHOMETRIC ANALYSIS ER (clone 6F11) >95, strong intensity PA (clone 16/1E2) 0% Her-2Neu (clone CB11) 2+ The test for HER 2 is performed on formalin-fixed paraffin embedded tissue using the CB11 mouse monoclonal antibody (Thumb Friendly). A 3+ staining pattern is interpreted as positive and is defined as a strong membranous staining involving the entire cell membrane in over 30% of invasive tumor cells. A similar weak staining pattern (2+) involving 10% of the tumor cells is interpreted as equivocal. HER 2 follow-up testing by FISH is recommended for all equivocal results. Reference: [place] Society of Clinical Oncology and the College of [place] [employer] (J. Clin. Oncol. 23: 118-145, 2007). 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 Positive for estrogen receptors (favorable prognostic indicator). Negative for progesterone receptors (favorable prognostic indicator). Equivocal for overexpression of [id number]. PATI/ 03/05/2024 ADDENDUM ADDENDUM ADDENDUM ADDENDUM ADDENDUM ADDENDUM ADDENDUM ADDENDUM ADDENDUM ADDENDUM ADDENDUM ADDENDUM ADDENDUM ADDENDUM ADDENDUM ADDENDUM ADDENDUM ADDENDUM ADDENDUM ADDENDUM ADDENDUM 03/06/2024 11:45 ADDENDUM 03/06/2024 11:45 ADDENDUM 03/06/2024 11:45 ADDENDUM 03/06/2024 11:45 ADDENDUM 03/06/2024 11:45 IN SITU HYBRIDIZATION (ROSINA) FOR HER2 Interpretation: Not Amplified / Negative HER2 : CEP-17 Ratio: 1.1 Average HER2 Signal: 1.9 Average CEP-17 Signal: 1.1 Number of Tumor Cells Scanned: 50 Interpretative Information: The INFORM HER2 Dual ROSINA DNA Probe Cocktail assay is performed on formalin-fixed paraffin embedded tissue and determines HER2 gene status by detecting HER2 copies via silver in situ hybridization (SISH) and Chromosome 17 copies via chromogenic red in situ hybridization on tumor cells. A minimum of 20 cells representing > 10% of contiguous and homogeneous invasive tumor cells were analyzed. HER2 gene status is classified as Non-amplified (HER2/Chr17 ratio < 2.0) or Amplified (HER2/Chr17 ratio greater than or equal to 2.0). If the resulting HER2/Chr17 ratio falls within 1.8 - 2.2 (Borderline), retesting by FISH is recommended. Reference: Loretta AC, Bobby CEDEÑOH, Jayjay DG, et al: Recommendations for Human Epidermal Growth Factor Receptor 2 Testing in Breast Cancer: [place] [employer] of Clinical Oncology / [employer] [place] [employer] Clinical Practice Guideline Update. J Clin Oncol 31:5247-6344, 2013.
== END | disposition home or self-care (01) ==
LOC: LABSPEC 16:24
PROVIDERS: PCP Family Medicine; Referring Provider Surgery; Visit Provider Surgery
DX: C50.912 Malignant neoplasm of unspecified site of left female breast (principal)
CPT/HCPCS: 81002; 88305; 88341; 88342

== ENCOUNTER 2024-04-04 09:08 | Day surgery (SDC) | payer MEDICARE, OTHER, SELFPAY ==
[2024-04-04 09:43] VITALS: BP 167/99; RESP 16; TEMP 36.3; BMI 19.5
--- NOTE | 2024-04-04 09:46 | PRE.ANES_ITS ---
ASA Classification* ASA Classification ASA Classification: 2 Assessment & Plan Anesthesia* Anesthesia Assessment Anesthesia Assessment: Discussed sedation and/or anesthesia options, risks, benefits, and alternatives with patient/parents/legal guardian/POA. Questions invited. The patient/parents/legal guardian/POA seems to understand and agrees to proceed with anesthesia plan. Reviewed the physical assessment, medical history, allergy history and patient home medications list prior to surgery/procedure/anesthetic and documented any changes. Performed airway and anesthesia risk assessments. Anesthesia Type Anesthesia Type: General Anesthesia Focused Assessment* Airway Assessment Mouth opens: >3 cm Mallampati Score: II Focused Labs Anesthesia Preop lab: CBC WBC 6.0 K/mm3 (4.4-11.0) 01/09/24 08:32 RBC 3.64 M/mm3 (4.2-5.4) L 01/09/24 08:32 Hgb 11.5 g/dL (12.0-15.0) L 01/09/24 08:32 Hct 36.7 % (37-47) L 01/09/24 08:32 Plt Count 172 K/mm3 (150-450) 01/09/24 08:32 CHEMISTRY Potassium 3.8 mmol/L (3.5-5.1) 01/09/24 08:32 Sodium 142 mmol/L (136-145) 01/09/24 08:32 Magnesium 2.2 mg/dL (1.6-2.6) 02/15/23 05:03 Phosphorus 3.5 mg/dL (2.5-4.9) 02/15/23 05:03 BUN 24 mg/dL (7-18) H 01/09/24 08:32 Creatinine 1.04 mg/dL (0.55-1.02) H 01/09/24 08:32 Glucose 57 mg/dL (74-106) L 01/09/24 08:32 TSH 0.46 uIU/mL (0.358-3.74) 01/09/24 08:32 COAG Pre-Assessment Diagnosis/Proposed Procedure Planned Operative Procedure(s): LEFT BREAST LUMPECTOMY Anesthesia History 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 When Was Last Pacemaker Check QUESTION #4 FULL TEXT: You/Your Family Experience fever (hyperthermia) with Anesthesia Last Oral Intake Last Oral intake: Last Oral Intake NPO since Meds taken in AM with sips of water? 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 Female Yes 03/29/24 15:41 HX of Motion Sickness No 03/29/24 15:41 HX of N/V After Surgery No 03/29/24 15:41 Non-Smoker Yes 03/29/24 15:41 Duration of Surgery greater Yes 03/29/24 15:41 than 60 minutes Number of Risk Factors 3 03/29/24 15:41 PONV Score Moderate Risk 03/29/24 15:41 Height & Weight Height & Weight: Anesthesia: Height & Weight Height 5 ft 7 in 03/29/24 08:07 Respiratory Assessment Respiratory Assessment - substitute school nurse: Respiratory Tract Infection Hx - substitute school nurse Hx Respiratory Tract Infection No 03/29/24 15:41 STOP Sleep Apnea STOP Sleep Apnea - substitute school nurse: STOP Sleep Apnea - substitute school nurse Hx Hypertension Yes: CONTROLLED WITH MEDS 03/29/24 15:41 Hx Sleep Apnea No 03/29/24 15:41 CPAP BIPAP Do you snore loudly (louder No 03/29/24 15:41 than talking or can be heard Do you often feel tired/ No 03/29/24 15:41 fatigued/ sleepy during daytime? Has anyone observed you stop No 03/29/24 15:41 breathing during sleep? STOP Results Negative 03/29/24 15:41 QUESTION #5 FULL TEXT : Do you snore loudly (louder than talking or can be heard through closed doors)? 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 Specify any problems Hx of Preganancy in last 3 No 03/29/24 15:41 Months Nurse Filling Out Transfusion [email or web address] 03/29/24 15:41 & Questions: Date: 03/29/24 03/29/24 15:41 Time: 15:44 03/29/24 15:41 Patient unable to answer at this time (ie. 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: /Reproductive Hx- substitute school nurse Hx Now Gestational Age (in weeks): EDC: Hx Hx Para Hx Section SAB Active Medications Active Medications: Current Medications Generic Name Dose Route Start Last Admin Trade Name Freq PRN Reason Stop Dose Admin Cefazolin Sodium 2 gm/ Sodium 110 mls @ 150 mls/hr 04/04/24 11:00 Chloride IV 04/04/24 11:43 PREOP ONE Lactated Ringer's 1,000 mls @ 15 mls/hr 04/04/24 09:30 IV .Q48H LESLEY PFSH Medical History Wears hearing aid Wears glasses Osteoporosis Anxiety Depression Non-smoker Migraines Thyroid cancer Sciatica Arthritis Environmental allergies Hypothyroid HTN (hypertension) Enteritis Home Medications ?Medication ?Instructions ?Recorded ?Last Taken ?Type levothyroxine 75 mcg tablet 75 mcg PO SUTUTHSA 02/22/24 Unknown History (Synthroid) levothyroxine 88 mcg tablet 88 mcg PO MOWEFR 02/22/24 Unknown History (Synthroid) memantine 14 mg capsule 14 mg PO QDAY 02/22/24 Unknown History sprinkle,extended release 24hr duloxetine 20 mg capsule,delayed 20 mg PO BID 03/29/24 Unknown History release lisinopril 20 mg tablet 20 mg PO BID 03/29/24 Unknown History Allergy/AdvReac Type Severity Reaction Status Date / Time No Known Allergies Allergy Verified 03/29/24 15:37 Family History Other No pertinent family history Surgical History H/O thyroidectomy History of facial surgery s/p pelvic floor reconstruction S/P hysterectomy Social History household members: spouse Smoking Status: Never smoker alcohol intake: never substance use type: does not use Review of Systems (Anesthesia) ROS Narrative System reviewed and no additional complaints, except as documented.
[2024-04-04] MEDS: Lactated Ringers 1,000 ML 15 ML IV (10:07)
--- NOTE | 2024-04-04 10:41 | PCM.HP.BLA ---
History and Physical Date of Service: 03/29/24 MR#: [id number] Acct: [id number] Name: ESTRADA LANCASTER Rep #: [id number] : 1940 Provider: Dr. Miguel Mariee MD Age/Sex: 83/F Location: [facility] Status: Signed Intake Vital Signs 03/14/2415:28 03/29/2408:07 Height 5 ft 7 in 5 ft 7 in Weight: 123 lb 8 oz 123 lb 6 oz BMI 19.3 19.3 BP 144/80 H 143/85 H Blood Pressure Location Lt brachial Rt brachial Position Sitting Sitting Respiration 16 17 Pulse 74 78 Pulse Source Monitor Monitor Temp 97.7 F L Pulse Oximetry (%) 97 98 Oxygen Delivery Method room air room air Intake Visit Reasons: DISCUSS BREAST SURGREY Chief Complaint: discuss breast surgery Is patient in pain?: No Allergies No Known Allergies Allergy (Verified 03/29/24 15:37) Medications ?Medication ?Instructions ?Recorded ?Confirmed ?Type levothyroxine 75 mcg tablet 75 mcg PO SUTUTHSA 02/22/24 03/29/24 History (Synthroid) levothyroxine 88 mcg tablet 88 mcg PO MOWEFR 02/22/24 03/29/24 History (Synthroid) memantine 14 mg capsule 14 mg PO QDAY 02/22/24 03/29/24 History sprinkle,extended release 24hr duloxetine 20 mg capsule,delayed 20 mg PO BID 03/29/24 03/29/24 History release lisinopril 20 mg tablet 20 mg PO BID 03/29/24 03/29/24 History Have you fallen in the past year?: No PFSH Medical History (Updated 03/29/24 @ 17:[address] Miguel Mariee MD) Wears hearing aid Wears glasses Osteoporosis Anxiety Depression Non-smoker Migraines Thyroid cancer Sciatica Arthritis Environmental allergies Hypothyroid HTN (hypertension) Enteritis Surgical History H/O thyroidectomy History of facial surgery s/p pelvic floor reconstruction S/P hysterectomy Family History Other No pertinent family history Social History household members: spouse Smoking Status: Never smoker alcohol intake: never substance use type: does not use HPI HPI HPI: Patient is an 83-year-old female who presents for an abnormal screening mammographic finding and had made her initial consultation visit 02/22/2024. She underwent core needle biopsy of this area on 02/29/2024 which confirmed the presence of invasive ductal carcinoma. In the meantime patient has met with oncology, Dr. Mayer on 03/15/2024. She presents today with her . She confirms that she has healed well following her biopsy and denies any pain from the breast site. Patient is an 83-year-old female who presents for an abnormal screening mammographic finding and had made her initial consultation visit 02/22/2024. However, at that visit she had not completed a reflex ultrasound and was able to have this study completed in the interim on 02/24/2024. This confirmed the presence of a 1.2 cm hypoechoic area 5 cm from the nipple along the 12 o'clock position. Patient presents to today's visit with her sister. Below is recapitulated from patient's initial consultation visit for ease of review: Patient is a 83-year-old female who presents for abnormal screening mammogram finding. She presents today with her . They are referred from Dr. Loyola. Based on mammographic imaging criteria this was given a BI-RADS 4. Interestingly no reflex ultrasound was performed. Patient has a history of dementia and so much of her history is gleaned from her . Patient has no prior history of breast pathology. She thus has no history of prior breast biopsy. She underwent menarche at the age of 15. She has had 1 pregnancies and 1 live births. Patient has no first-degree relatives with breast cancer. There is no tenderness with the present finding. There is no nipple discharge associated with this finding. The patient is no history of hormone replacement therapy. There is no history of trauma/infection to the affected breast. ROS General General: No weight change, appetite, fatigue, colon cancer, breast cancer or weakness HEENT HEENT: No difficulty swallowing, eye injury, eye surgery, swollen glands or hoarseness Endo Endocrine: Yes thyroid disease; No diabetes mellitus, thyroid cancer, Hair loss, heat intolerance or cold intolerance Skin Skin: No rash or changing moles Breast Breast: Yes abnormal mammogram; No left breast lump, right breast lump, nipple discharge, breast pain, abnormal US or breast enlargement Musc Musculoskeletal: Yes arthritis; No back problems, rheumatoid arthritis, gout or joint pain Cardio Cardiovascular: No murmur, pacemaker, heart disease, atrial fibrillation, high blood pressure, heart attack, heart stent, palpitations, shortness of breat with exertion or chest pain Psych Psychiatric: No depression, anxiety or hearing voices Resp Respiratory: No shortness of breath, No sleep apnea, No cough, No COPD, No asthma, No emphysema and No wheezing Gastro Gastrointestinal: No abdominal pain, No nausea or vomiting, No diarrhea, No constipation, No blood in stool, No acid reflux, No hemorrhoids, No ulcers, No gallbladder problem and No black,tarry stools Damaso Hematologic: No blood thinners, No blood disorders, No bleeding, No anemia and No blood clots Neuro Neurologic: No numbness, No tingling and No weakness Exam Const General: cooperative Orientation: alert, awake and oriented to person Chest Other: Patient has healed well following breast biopsy and are virtually no signs of our biopsy attempt. Her chest wall shows persistent nodularity at approximately the 12 o'clock position. There is no tenderness here. Assessment and Plan Assessment and Plan (1) Invasive ductal carcinoma of breast: Status: Acute Comment: Patient 83-year-old female with recent biopsied?confirmed diagnosis of invasive ductal carcinoma of the left breast. I discussed treatment options with patient's (given her compromised cognitive status secondary to dementia) and he initially elected to meet with oncology. Through conversations with oncology and radiation oncology as well we have jointly agreed to pursue lumpectomy of the primary mass and forego any attempts at staging of the axilla. There is a strong interest in minimizing patient's anesthetic exposure to preserve her cognitive function, but there is also significant concerns about her ability to participate in radiation therapy. Following lumpectomy and healing patient to be referred back to oncology for initiation with hormonal therapy. This plan was discussed with patient and her and they deny any questions. Plan: Left breast mass lumpectomy that is probably possible with MAC sedation. Procedure to be undertaken as outpatient disposition I have examined the patient and the H&P has been reviewed. There are no clinical changes since date of exam 6 days ago. Over revealed plan for today was reviewed with patient and her . We are looking to proceed with a lumpectomy only given the consensus amongst oncology and that axillary staging will not affect management. I have also provided patient's with an overview of the wound care expectations. Neither he nor Mrs. Lancaster have any further questions offered. Will now proceed to the operating room for procedure was described in more detail above.
--- NOTE | 2024-04-04 11:00 | BREAST_PTH ---
PATIENT: ESTRADA MURO LOC: [facility] [place] U#:[id number] AGE/SX: 83/F ROOM: RE04/04/[address]: Dr. Miguel Mariee MD : 1940 BED: DIS: 04/04/2024 SPEC #: [id number] RECD: 04/05/24 08:47 STATUS: YFN GARCIAWayne #: [id number] CHARLES: 04/04/24 11:[address]: Miguel Mariee DEPT: SURGICAL PATHOLOGY RECD BY: Ryan Garcia ENTERED: 04/05/24 10:07 SP TYPE: BREAST OTHR DR: Dr. Antonella Loyola, DO Tissues: Left breast, NOS Procedures: Surgery Specimen Level V HEADER OPERATION: Breast, left lumpectomy PRE-OP DIAGNOSIS: Left breast intraductal carcinoma TISSUE SUBMITTED: Left breast mass- marking stitch: short stitch-superior, long stitch- lateral MICROSCOPIC DIAGNOSIS Left breast, lumpectomy: Invasive ductal carcinoma. See cancer template below. PATI/ 04/09/2024 COMMENT INVASIVE BREAST CANCER SUMMARY: Specimen: Partial breast Procedure: Excision without wire guidance Specimen integrity: Single intact specimen. Specimen size: 3.5 x 3.0 x 2.6 cm Specimen laterality: Left Specimen site: Not specified Tumor size: 1.4 x 1.2 x 1.0cm Tumor focality: Single focus of carcinoma Macroscopic and Microscopic extent of tumor: Skin: No skin present Nipple: No nipple present Skeletal muscle: No skeletal muscle present Histologic Grade ([place] grade): Glandular/tubular differentiation score: 2 Nuclear pleomorphism score: 2 Mitotic count score: 1 Overall grade: 1 (score of 5) Margins: Distance of invasive and in situ carcinoma from closest margin: 3mm from inferior margin Lymph-Vascular invasion: Not identified Dermal lymph-vascular invasion: Not applicable Ductal carcinoma in situ (DCIS): Present Estimated quantification: 2% Number of blocks: 4 of 9 Architectural patterns: Cribriform and solid nuclear grade 1/3 Necrosis: Not present Lobular carcinoma in situ (LCIS): Not present Lymph nodes: Not present Microcalcifications: Present and associated with invasive carcinoma. Treatment effect: No known presurgical therapy Additional pathologic findings: Changes of previous biopsy, mild fibrocystic change and associated microcalcifications Ancillary studies: Previously performed on same tumor ([id number] / [id number]). ER: Positive, >95% DC: Negative, 0%, Her2 annie: 2+ by immunohistochemistry and not amplified (1.1) by in situ hybridization Ki67: 5% Clinical history: Mass of breast PATHOLOGIC STAGE: T1c Nx Mx The above summary is in compliance with [employer] [place] [employer] (CAP) Cancer Protocols Checklist and [place] Joint Committee on Cancer (AJCC), Staging Manual, 8th Ed. Case has been reviewed in consultation with Dr. Carrillo who concurs with the above diagnosis. IDC:SJ MICROSCOPIC DESCRIPTION Slides are reviewed. GROSS DESCRIPTION Received in fixative is one container labeled with the patient's name and designated Left breast mass. The specimen consists of an oriented fragment of rosenthal-yellow fatty tissue measuring 3.5 x 3.0 x 2.6cm and weighing 13.0gm. The specimen is inked as follows: anterior - yellow, posterior - black, superior - blue, inferior - green, medial - red and lateral - orange. Serial sections reveal a firm white elongated, non-distinct area measuring 1.5 x 0.6 x 1.0cm that is present at <0.1cm from the inferior margin, grossly. A metallic clip is identified in the mid-portion of this lesion. The specimen is serially sectioned and totally submitted in nine cassettes after additional fixation. PATI/ 04/05/2024 TC:0 [facility]:[id number]
[2024-04-04] MEDS: Cefazolin 2 GM in 0.9% Normal Saline (100mL Bag) 100 ML IV (11:07)
--- NOTE | 2024-04-04 11:45 | PCM.POST.ANE ---
Anesthesia: Postop Eval I Current Vital Signs Temperature: 97.5 F Pulse Rate: 65 Blood Pressure: 115/75 Respiratory Rate: 16 Pulse Ox: 100 Assessment Airway patent: Yes Spontaneous unlabored respirations: Yes nausea: No Vomiting: No Anesthesia Complication: No Fluid Hydration Crystalloid volume administer (ml): 1,000 Total IV fluid infused: 1,000 Progress Note Anesthesia document: Postop Eval 1 completed: Yes
[2024-04-04 11:46] VITALS: BP 115/75; PULSE 65; RESP 16; TEMP 36.4; O2SAT 100
[2024-04-04] MEDS: Bupiv/Epi 0.25% 30 ML Vial (12:08)
--- NOTE | 2024-04-04 12:11 | PCM.OPRPT ---
Report of Operation Date of Procedure: 04/04/24 Pre-Operative Diagnosis: Left breast cancer Post-Operative Diagnosis: Same Surgery/Procedure Performed:: Left breast lumpectomy Description of Surgical Findings:: ? Firm tissue along the deep margin but remaining cavity demonstrated no palpable irregularities ? Specimen oriented and marked with suture short superior long lateral Surgeon: Miguel Mariee pulling unit floorhand: Diamond Macias Type of Anesthesia: MAC/Supplemental/Local Anesthesiologist: Edgar Tovar Specimen's removed: Left breast lumpectomy Estimated Blood Loss (mL): 5 Description of Procedure: After appropriate identification in the preoperative holding area patient was positioned supine on the operating room table. Preoperative antibiotics and sedation were begun by anesthesia. An ultrasound was used to map out the location of the breast mass in the upper outer quadrant of the left breast. An incision was planned and marked based on this mapping. The left breast was then prepped and draped in the usual sterile fashion. Formal timeout was conducted to confirm both patient and procedure. Local anesthetic (total volume of 28 mL) was instilled in the appointed location and an approximately 5 cm transverse incision was made sharply. This was deepened with the use of electrocautery. Sharply the area of dissection was extended beneath the skin taking care to preserve the viability of the skin by maintaining a safe distance from the dermis. I continually use palpation as well as reinspected our original markings to be sure I maintained a consistent margin circumferentially about the area of interest. Once I had achieved the appropriate circumferential excision and confirmed our depth the breast tissue was amputated from the cavity. It was oriented such that the short stitch marked the superior margin and the long stitch chance the lateral margin. It was then passed off the field for pathology. Then the biopsy cavity was palpated and I did not identify any suspicious mass lesions. The cavity was irrigated with sterile water and inspected for hemostasis. 4 small clips were used to maximo the posterior extent of our biopsy cavity for later radiation targeting. The cavity was then closed at a deep dermal level with a running 3-0 Vicryl. Then the skin was closed in a subcuticular fashion with 4-0 Monocryl. Steri-Strips and OpSite bandages were applied. The patient was awoken from anesthetic without issue and delivered to PACU for ongoing care. Grafts/Implants Used: None Complications None Procedures Integumentary [id number]: [id number] Partial mastectomy
--- NOTE | 2024-04-04 12:14 | EX.PCM.DISCH ---
Discharge Instructions Diet Discharge Diet: No restrictions Activity Discharge Activity: May Drive (No driving while using narcotic pain medication) May shower in (days): 2 Ice area for (Minutes): 20 Lifting Restrictions: Limit lifting with left upper extremity to no more than 5 pounds Dressing / Incision Call your doctor if your incision/area has: Continuous Slow Oozing, Sudden Increased Bleeding, Increased Pain/ Swelling, Increased Redness, Foul Smelling Discharge and Swelling at the incision site Call your doctor if you observe: Fever of 101 or Higher Suture Line Care: Avoid Pulling/Pushing Remove Dressing in: 2 days Cleanse incision/area with: Soap & Water Additional Dressing/Incision Instructions:: Please leave Steri-Strips intact until they fall off spontaneously or are taken off at your follow-up visit Follow Up Care Please Follow Up With: Miguel Mariee MD When: 10-14 days postop Test Results: Test results from this visit will be discussed in further detail at your follow-up appointment, if applicable. Discharge Plan Admission Primary Reason for Your Visit: Left breast lumpectomy Attending Provider: Miguel Mariee Primary Care Provider: Antonella Loyola Instructions Print Language: Indonesian Discharge Orders/Prescriptions Prescriptions: Continued levothyroxine [Synthroid] 88 mcg tablet 88 mcg PO MOWEFR levothyroxine [Synthroid] 75 mcg tablet 75 mcg PO SUTUTHSA memantine 14 mg capsule,sprinkle,ER 24hr 14 mg PO QDAY lisinopril 20 mg tablet 20 mg PO BID duloxetine 20 mg capsule,delayed release(DR/EC) 20 mg PO BID Referrals / Follow Up: Antonella Looyla DO [Primary Care Provider] - Disposition Disposition (needs filled in before D/C Order can be placed): Home, Self Care
[2024-04-04 12:21] VITALS: BP 150/79; BP 167/99; PULSE 72; RESP 16; TEMP 36.9; O2SAT 97
[2024-04-04 12:25] VITALS: BP 160/73; BP 167/99; PULSE 71; RESP 16; O2SAT 100
[2024-04-04 12:30] VITALS: BP 157/90; BP 167/99; PULSE 78; RESP 18; O2SAT 99
--- NOTE | 2024-04-04 12:39 | PCM.POSTANE2 ---
Anesthesia Postop Eval I Sum Postop Eval Completion status Anesthesia document: Postop Eval 1 completed: Yes Anesthesia Postop Eval I Summary Anesthesia Postop Eval I Summary: Anesthesia Postop Eval I: Assessment Summary Airway patent Yes 04/04/24 11:46 Spontaneous unlabored Yes 04/04/24 11:46 respirations Mental status nausea No 04/04/24 11:46 Vomiting No 04/04/24 11:46 Anesthesia Postop Eval I: Fluid Summary Crystalloid volume administer 1,000 04/04/24 11:46 (ml) Colloids volume administered ( ml) Blood Product volume administered (ml) Total IV fluid infused 1,000 04/04/24 11:46 Anesthesia Postop Eval I: Summary Notes Anesthesia Complication No 04/04/24 11:46 Anesthesia Complication Comment: Post-operative progress note Anesthesia: Postop Eval II Evaluation Mental status: Awake Pain Level: 0 nausea: No Vomiting: No
[2024-04-04 12:45] VITALS: BP 158/78; BP 167/99; PULSE 65; RESP 18; TEMP 36.9; O2SAT 99
== END 2024-04-04 14:04 | disposition home or self-care (01) ==
LOC: SDC 09:10 → AC 09:11
PROVIDERS: PCP Family Medicine; Referring Provider Surgery; Visit Provider Surgery
PROC: (CPT 19301; principal; 2024-04-04 10:45)
DX: C50.412 Malignant neoplasm of upper-outer quadrant of left female breast (principal); F03.90 Unspecified dementia, unspecified severity, without behavioral disturbance, psychotic disturbance, mood disturbance, and anxiety; I10 Essential (primary) hypertension; E03.9 Hypothyroidism, unspecified; Z79.899 Other long term (current) drug therapy; Z79.890 Hormone replacement therapy
CPT/HCPCS: 19301; 00400; 88307; A4648; J7120

== ENCOUNTER 2025-01-20 14:28 | Emergency (ER) | payer MEDICARE, OTHER, SELFPAY ==
[2025-01-20 14:28] VITALS: BP 134/77; PULSE 83; RESP 16; TEMP 36.6; O2SAT 98; BMI 21.7
--- NOTE | 2025-01-20 14:36 | EDS_ITS ---
HPI <LAUREN Flores - Last Filed: 01/20/25 16:07> History of Present Illness Chief Complaint: Laceration Narrative Narrative: 84-year-old female with dementia presents with laceration on her left great toe. Her states there is a wooden shelf attached to the wall by 2 metal pieces that became loose and fell onto her toe about 30 minutes prior to arrival. Bleeding is controlled with a bandage. She is able to ambulate. She is not on blood thinners. PFSH <LAUREN Flores - Last Filed: 01/20/25 16:07> [facility] Medical History Screening for breast cancer Osteopenia Invasive ductal carcinoma of breast, stage 1 Invasive ductal carcinoma of left breast Breast cancer Osteoporosis Wears hearing aid Wears glasses Osteoporosis Anxiety Depression Non-smoker Migraines Thyroid cancer Sciatica Arthritis Environmental allergies Hypothyroid HTN (hypertension) Enteritis Home Medications ?Medication ?Instructions ?Recorded ?Last Taken ?Type levothyroxine 75 mcg tablet 75 mcg PO SUTUTHSA 4 Unknown History (Synthroid) levothyroxine 88 mcg tablet 88 mcg PO MOWEFR 02/22/24 Unknown History (Synthroid) memantine 14 mg capsule 14 mg PO QDAY 02/22/24 Unkno wn History sprinkle,extended release 24hr duloxetine 20 mg capsule,delayed 20 mg PO BID 03/29/24 Unknown History release lisinopril 20 mg tablet 20 mg PO BID 03/29/24 Unknow n History anastrozole 1 mg tablet 1 mg PO QDAY #90 tabs Unknown Rx Allergy/AdvReac Type Severity Reaction Status Date / Time No Known Allergies Allergy Verified 01/20/25 14:29 Family History Other No pertinent family history Surgical History S/P breast lumpectomy H/O thyroidectomy History of facial surgery s/p pelvic floor reconstruction S/P hysterectomy Social History household members: spouse Smoking Status: Never smoker alcohol intake: never substance use type: does not use ROS <LAUREN Flores - Last Filed: 01/20/25 16:07> ROS ED ROS Narrative Neuro: Negative for headache, motor/sensory dysfunction. Skin: Positive for laceration. Musc: Negative for joint pain. EXAM <LAUREN Flores - Last Filed: 01/20/25 16:07> Physical Exam Narrative Exam Narrative: CONST: Patient sitting in no acute distress. EYES: Normal inspection. SKIN: 1.5 cm curved flap type laceration left great toe just proximal to the toenail. The flap is still adhered. There is no active bleeding. There is no swelling or bruising of the foot, full range of motion of ankle and toes, normal strength and sensation, 2+ DP pulse. No nail injury or subungual hematoma. EXTREMITIES: Normal appearance, no pedal edema. NEURO: Alert and answering basic questions appropriately, demented. PSYCH: Normal affect. Const Vital Signs: 01/20/25 14:28 Temperature 98 F Temperature Source Oral Pulse Rate 83 Respiratory Rate 16 Blood Pressure 134/77 H Blood Pressure Mean 96 Pulse Ox 98 <Dr. Hakeem Hayward MD - Last Filed: 01/20/25 14:48> Physical Exam Const Vital Signs: 01/20/25 14:28 Temperature 98 F Temperature Source Oral Pulse Rate 83 Respiratory Rate 16 Blood Pressure 134/77 H Blood Pressure Mean 96 Pulse Ox 98 PROC <LAUREN Flores - Last Filed: 01/20/25 16:07> Procedures Lacerations Left great toe: Length: 1.5 cm Depth: Skin Shape: Flap Prep: Sterile Conditions Laceration repair: Irrigated and Wound explored Number of Sutures/Evan: 4 Suture Information: Ethilon and 5-0 MDM <LAUREN Flores - Last Filed: 01/20/25 16:07> MDM MDM Narrative Medical decision making narrative: History of from: Patient and her Differential: Toe laceration, I do not suspect a fracture 84-year-old female has a 1.5 cm curved flap laceration on the left great toe proximal to the nail. There is no nail injury or subungual hematoma. There is no swelling or bony tenderness and the extremity is neurovascularly intact so I do not think x-rays are indicated. Let gel was applied. I thoroughly cleansed the area and repaired with 4 sutures. See procedure note. She was given a tetanus update and wound care instructions and discharged in stable condition. I have personally performed a face to face assessment of the patient and have reviewed the CECY Note. I performed a substantive portion of the visit including all aspects of the following. My meraz findings include: 84-year-old female wooden shelf dropped and lacerated top of her right great toe. Unsure last tetanus. No other injuries. Denies any significant toe pain currently. Patient accompanied by family. Patient has a history of dementia. Exam is [84-year-old female sitting upright in bed. Vital signs stable afebrile. No distress. Family at bedside. H EENT exam pupils round react light. Extra motions are intact. No trauma to her face or scalp. Neck nonten daksha. Back nontender. Lungs clear to auscultation. Heart regular rhythm rate about 80 no murmur. Chest wall ribs nontender. Abdomen soft nontender. Pelvic girdle intact. Moving all 4 extremities. Normal strength. Normal range of motion. The right foot top of the right great toe just proximal to the nail there is a flap laceration. Mild swelling. Minimal oozing. She is able to wiggle the toe. There is no bony deformity or tenderness. No significant swelling. Normal sensation. The rest of the foot is nontender nonswollen. Patient is awake and alert. She does have dementia and is chronic confusion.] Medical Decision Making [right great toe laceration. Tetanus updated. Locally anesthetized. Repaired. I do not think she needs an x-ray at this time.] Other additions or changes: [None] <Dr. Hakeem Hayward MD - Last Filed: 01/20/25 14:48> [facility] Narrative Medical decision making narrative: I have personally performed a face to face assessment of the patient and have reviewed the CECY Note. I performed a substantive portion of the visit including all aspects of the following. My meraz findings include: 84-year-old female wooden shelf dropped and lacerated top of her right great toe. Unsure last tetanus. No other injuries. Denies any significant toe pain currently. Patient accompanied by family. Patient has a history of dementia. Exam is [84-year-old female sitting upright in bed. Vital signs stable afebrile. No distress. Family at bedside. H EENT exam pupils round react light. Extra motions are intact. No trauma to her face or scalp. Neck nontender. Back nontender. Lungs clear to auscultation. Heart regular rhythm rate about 80 no murmur. Chest wall ribs nontender. Abdomen soft nontender. Pelvic girdle intact. Moving all 4 extremities. Normal strength. Normal range of motion. The right foot top of the right great toe just proximal to the nail there is a flap laceration. Mild swelling. Minimal oozing. She is able to wiggle the toe. There is no bony deformity or tenderness. No significant swelling. Normal sensation. The rest of the foot is nontender nonswollen. Patient is awake and alert. She does have dementia and is chronic confusion.] Medical Decision Making [right great toe laceration. Tetanus updated. Locally anesthetized. Repaired. I do not think she needs an x-ray at this time.] Other additions or changes: [None] Discharge Plan Triage Chief Complaint: Laceration ED Midlevel Provider: Antonella Rivera ED Provider: Hakeem Hayward Dx/Rx/DC Orders Clinical Impression: Laceration of great toe of left foot Instructions: ED Laceration, All Closures, ED Laceration Extremity Prescriptions: No Action levothyroxine [Synthroid] 88 mcg tablet 88 mcg PO MOWEFR levothyroxine [Synthroid] 75 mcg tablet 75 mcg PO SUTUTHSA memantine 14 mg capsule,sprinkle,ER 24hr 14 mg PO QDAY anastrozole 1 mg tablet 1 mg PO QDAY Qty: 90 4RF lisinopril 20 mg tablet 20 mg PO BID duloxetine 20 mg capsule,delayed release(DR/EC) 20 mg PO BID Primary Care Provider: Antonella Loyola Referrals: Antonella Loyola DO [Primary Care Provider] - 10 Day for suture removal Activity Restrictions/Additional Instructions: Keep the area clean. Pat dry after showering. You can apply bacitracin and a bandage. The stitches need removed in 10 days. Please be seen immediately if you develop signs of infection like significant redness, swelling, pus, increased pain or fever. Print Language: R[place] Disposition Disposition: Home, Self Care Discharge Date/Time: 01/20/25 15:28
[2025-01-20] MEDS: Lidocaine/Epi/Tetracaine 50 ML 1 APPLIC TOPICAL (14:50)
[2025-01-20] MEDS: Lidocaine 1% (20 ml mdv) 20 ML Vial INFILT (14:50)
[2025-01-20] MEDS: Diphth,Pertuss(Acell),Tet Vac 0.5 ML Vial IM (14:56)
--- OUTSIDE RECORDS SUMMARY | 2025-01-20 14:56 | XMS RPT_ITS | CCD ---
Author Organization [facility] Care Team Providers Care Principal Quality Engineer Name Role Phone Dr. Antonella Loyola Primary Care Provider Dr. Antonella Loyola Referring Provider [phone] Bernard Ewing Attending Provider Dr. Yaya Villagran Attending Provider Miguel Mariee Attending Unavailable Miguel Mariee Referring Unavailable Malys, Antonella Primary Care Unavailable Miguel Mariee Referring Unavailable Miguel Mariee Attending Unavailable Malys, Antonella Primary Care Unavailable Miguel Mariee Attending Unavailable Miguel Mariee Referring Unavailable Malys, Antonella Primary Care Unavailable Miguel Mariee Attending Unavailable Miguel Mariee Consulting Unavailable Miguel Mariee Referring Unavailable Malys, Antonella Primary Care Unavailable Shannan, Cecilia Attending Unavailable Malys, Antonella Primary Care Unavailable Malys, Antonella Referring Unavailable Malys, Antonella Referring Unavailable Miguel Mariee Attending Unavailable Malys, Antonella Primary Care Unavailable Malys, Antonella Referring Unavailable Miguel Mariee Attending Unavailable Malys, Antonella Primary Care Unavailable Malys, Antonella Referring Unavailable Malys, Antonella Primary Care Unavailable IsckarusLaurence Attending Unavailable Malys, Antonella Primary Care Unavailable Malys, Antonella Referring Unavailable BorMiguel jenkins Attending Unavailable Malys, Antonella Referring Unavailable BorMiguel jenkins Attending Unavailable Malys, Antonella Primary Care Unavailable Malys, Antonella Primary Care Unavailable Opal Christopher Attending Unavailable Malys, Antonella Referring Unavailable Malys, Antonella Referring Unavailable Isckarus, Mansour Attending Unavailable Malys, Antonella Primary Care Unavailable Shannan, Cecilia Attending Unavailable Malys, Antonella Referring Unavailable Malys, Antonella Primary Care Unavailable Shannan, Cecilia Referring Unavailable Shannan, Cecilia Attending Unavailable Malys, Antonella Primary Care Unavailable Malys, Antonella Referring Unavailable MorrisAntonella colón Attending Unavailable MorrisAntonella colón Primary Care Unavailable MorrisAntonella colón Referring Unavailable Milla Antonella Attending Unavailable Antonella Loyola Primary Care Unavailable Medications Current Medications Medication Drug Class(es) Dates Sig (Normalized) Sig (Original) aspirin 81 mg delayed release oral tablet (5 sources) Platelet Aggregation Inhibitor, Nonsteroidal Anti-inflammatory Drug Start: 2 take 81 mg by mouth once daily Aspirin Active 81 MG PO DAILY May 26, 2022 11:00pm biotin 1 mg chewable tablet (4 sources) Start: 0 take 1000 ug by mouth once daily Biotin Active 1000 MCG PO DAILY August 25, 2019 1:00am calcium carbonate 1250 mg oral tablet (9 sources) Start: 4 take 500 mg by mouth once daily Calcium Carbonate Active 500 MG PO DAILY@0800 August 16, 2013 12:00am diclofenac sodium 0.01 mg/mg topical gel (4 sources) Nonsteroidal Anti-inflammatory Drug Start: 1 Diclofenac Sodium Active GM TOPICAL September 04, 2020 1:00am DULoxetine 20 mg delayed release oral capsule (2 sources) Serotonin and Norepinephrine Reuptake Inhibitor Start: 3 take 20 mg by mouth once daily Duloxetine Active 20 MG PO DAILY February 13, 2023 11:00pm levothyroxine sodium 0.1 mg oral tablet (9 sources) l-Thyroxine Start: 4 take 88 ug by mouth once daily Levothyroxine Active 88 MCG PO DAILY August 16, 2013 12:00am lisinopril 20 mg oral tablet (9 sources) Angiotensin Converting Enzyme Inhibitor Start: 4 take 20 mg by mouth twice daily Lisinopril Active 20 MG PO TWICE A DAY August 16, 2013 12:00am Methylprednisolone (4 sources) Corticosteroid Start: Methylprednisolone Active MG March 20, 2021 5:05am Start: 03-20-2021 Methylpredniso lone Active MG March 20, 2021 12:00am Multivitamin (Daily Multi-Vitamin) tablet (2 sources) Start: 02-14-2023 take 1 tablet by mouth once daily Multivitamin (Daily Multi-Vitamin) tablet Active 1 TABLET PO DAILY February 13, 2023 11:00pm nitrofurantoin, macrocrystals 25 mg / nitrofurantoin, monohydrate 75 mg oral capsule (4 sources) Nitrofuran Antibacterial Start: 03-20-2021 take 100 mg by mouth every twelve hours Nitrofurantoin Monohyd/M-Cryst Active 100 MG PO EVERY 12 HOURS March 20, 2021 12:00am omeprazole 20 mg delayed release oral tablet (4 sources) Proton Pump Inhibitor Start: 08-08-2018 take 20 mg by mouth at bedtime Omeprazole Active 20 MG PO AT BEDTIME August 08, 2018 1:00am vitamin b12 0.5 mg oral tablet (9 sources) Vitamin B12 Start: 08-25-2019 take 1000 ug by mouth once daily Cyanocobalamin (Vitamin B-12) Active 1000 MCG PO DAILY@0800 August 25, 2019 12:00am Completed/Discontinued Medications Medication Drug Class(es) Dates Sig (Normalized) Sig (Original) acetaminophen 325 mg / HYDROcodone bitartrate 5 mg oral tablet (9 sources) Opioid Agonist Start: 09-10-2020 End: 09-13-2020 take 1 tablet by mouth every six hours as needed Hydrocodone-Aceta minophen Discontinued 1 TABLET PO EVERY 6 HOURS NEEDED 04 26September 10, 2020 September 13, 2020 12:03am dicyclomine hydrochloride 10 mg oral capsule (9 sources) Anticholinergic Start: 08-25-2019 End: 09-13-2019 take 20 mg by mouth at bedtime Dicyclomine Discontinued 20 MG PO BEFORE MEALS AND AT BEDTIME August 25, 2019 12:00am September 13, 2019 2:04pm ibuprofen 600 mg oral tablet (9 sources) Nonsteroidal Anti-inflammatory Drug Start: 09-13-2019 End: 02-14-2023 take 600 mg by mouth every eight hours Ibuprofen Discontinued 600 MG PO Q8H September 13, 2019 12:00am February 14, 2023 3:14pm Nirmatrelvir-Ritona vir (5 sources) Start: 05-27-2022 End: 02-14-2023 Nirmatrelvir-Ray navir (Paxlovid (Eua)) 300 mg (150 mg x 2)-100 mg tablets,dose pack Discontinued 0 PO .COMPLEX May 26, 2022 11:00pm February 14, 2023 3:15pm take TWO 150 mg tablets of nirmatrelvir with ONE 100 mg tablet of ritonavir twice daily for 5 days Start: 05-27-2022 Nirmatrelvir-R itonavir (Paxlovid (Eua)) 300 mg (150 mg x 2)- 100 mg tablets,dose pack Active 0 PO .COMPLEX May 27, 2022 12:00am take TWO 150 mg tablets of nirmatrelvir with ONE 100 mg tablet of ritonavir twice daily for 5 days triamcinolone acetonide 40 mg/ml injectable suspension (2 sources) Corticosteroid Start: 09-18-2020 End: 09-18-2020 Kenalog (triamcinolone acetonide) 40 mg/mL suspension for injection Discontinued 80 MG INTRAARTIC ONCE 2 September 18, 2020 3:40pm September 18, 2020 4:20pm Start: 09-13-2019 End: 09-13-2019 Kenalog (triamcinolone aceto nide) 40 mg/mL suspension for injection Discontinued 80 MG INTRAARTIC ONCE 2 September 13, 2019 2:47pm September 13, 2019 3:34pm Problems Active Problems Problem Classification Problem Date Documented Date Episodic/Chronic Allergic reactions (9 sources) Environmental allergy; Translations: [Other allergy status, other than to drugs and biological substances] 08-25-2019 Episodic Cancer of breast (2 sources) Malignant neoplasm of unspecified site of left female breast; Translations: [Malignant neoplasm of unspecified site of unspecified female breast] Onset: 04-30-2024 Chronic Conditions associated with dizziness or vertigo (2 sources) Vertigo; Translations: [Dizziness and giddiness] 02-23-2023 Episodic Delirium, dementia, and amnestic and other cognitive disorders (4 sources) Dementia; Translations: [Unspecified dementia without behavioral disturbance] 02-23-2023 Chronic Essential hypertension (9 sources) Hypertensive disorder; Translations: [Essential (primary) hypertension] 08-25-2019 Chronic Headache; including migraine (17 sources) Headache; Translations: [Supraorbital headache] 06-04-2022 Episodic Influenza (9 sources) Influenza due to Influenza A virus; Translations: [Influenza due to other identified influenza virus with other respiratory manifestations] 08-17-2013 Episodic Nausea and vomiting (2 sources) Nausea and vomiting; Translations: [Nausea with vomiting, unspecified] 02-23-2023 Episodic Noninfectious gastroenteritis (9 sources) Enteritis of small intestine; Translations: [Noninfective gastroenteritis and colitis, unspecified] 08-25-2019 Episodic Osteoporosis (1 source) Age-related osteoporosis without current pathological fracture; Translations: [Age-related osteoporosis without current pathological fracture] Onset: 04-30-2024 Chronic Other acquired deformities (4 sources) Degenerative spondylolisthesis; Translations: [Spondylolisthesis, site unspecified] 11-03-2022 Episodic Other acquired deformities (3 sources) Spondylolisthesis, site unspecified; Translations: [Acquired spondylolisthesis] 11-03-2022 Episodic Other screening for suspected conditions (not mental disorders or infectious disease) (3 sources) Encounter for other screening for malignant neoplasm of breast; Translations: [Other abnormal and inconclusive findings on diagnostic imaging of breast] Onset: 03-08-2024 Episodic Spondylosis; intervertebral disc disorders; other back problems (20 sources) Neck pain; Translations: [Cervicalgia] 11-03-2022 Episodic Substance-related disorders (9 sources) Drug-induced insomnia; Translations: [Other psychoactive substance use, unspecified with psychoactive substance-induced sleep disorder] 03-20-2021 Episodic Thyroid disorders (10 sources) Hypothyroidism; Translations: [Hypothyroidism, unspecified] Onset: 01-11-2024 09-10-2020 Chronic Urinary tract infections (9 sources) Urinary tract infectious disease; Translations: [Urinary tract infection, site not specified] 03-20-2021 Episodic Viral infection (5 sources) Disease caused by 2019-nCoV; Translations: [COVID-19] 05-27-2022 Episodic Past or Other Problems Problem Classification Problem Date Documented Date Episodic/Chronic Residual codes; unclassified (1 source) Other specified postprocedural states; Translations: [Other specified postprocedural states] Onset: 04-30-2024 Episodic Unclassified (6 sources) s/p pelvic floor reconstruction 02-10-2022 Results Test Name Value Interpretation Reference Range Facility Oncology Visit Reporton Oncology Visit Report [facility] [place] [address] OFFICE VISIT Date of Service: 10/29/24 1322 MR#: [id number] Acct: [id number] Name: ESTRADA MURO Rep #: [id number] : 1940 From: Cecilia Campbell NP TILE GRADER -C Age/Sex: 84/F [facility] [facility] Status: Signed HPI Subjective Date of Service 10/29/24 Chief Complaint Breast cancer History of Present Illness 84-year-old female underwent a screening mammogram on February 15, 2024 which showed a 1.1 x 0.8 cm spiculated nodule in the upper central portion of the left breast. February 24, 2024 and ultrasound confirmed the abnormality measuring 1.2 cm in maximum diameter BI-RADS Category 5. February 29, 2024 Left breast, core biopsy: Invasive ductal carcinoma. See synoptic report below. AM/mr 03/02/2024 COMMENT INVASIVE BREAST CANCER SUMMARY: Procedure: Needle core biopsy Specimen Laterality: Left breast Tumor site: Left breast Histologic type: Invasive ductal carcinoma Provisional Histologic grade: 2 Tubule Differentiation Score:2 Nuclear Pleomorphism Score: 2 Mitotic Rate Score: 1 Tumor Size ( greatest dimension): 8.5mm Ductal Carcinoma In situ: Not identified Angiolymphatic Invasion: Not identified Microcalcifications: Focally present Additional Findings: None Breast Marker Study: [id number] ER: >95% WA: 0% Her2: 2+ (equivocal) Ki67:5% Negative for overexpression of OPF1cvt by FISH April 04, 2024 left breast lumpectomy: Left breast, lumpectomy: Invasive ductal carcinoma. See cancer template below. AM/mr 04/09/2024 COMMENT INVASIVE BREAST CANCER SUMMARY: Specimen: Partial breast Procedure: Excision without wire guidance Specimen integrity: Single intact specimen. Specimen size: 3.5 x 3.0 x 2.6 cm Specimen laterality: Left Specimen site: Not specified Tumor size: 1.4 x 1.2 x 1.0cm Tumor focality: Single focus of carcinoma Macroscopic and Microscopic extent of tumor: Skin: No skin present Nipple: No nipple present Skeletal muscle: No skeletal muscle present Histologic Grade (Shahid grade): Glandular/tubular differentiation score: 2 Nuclear pleomorphism score: 2 Mitotic count score: 1 Overall grade: 1 (score of 5) Margins: Distance of invasive and in situ carcinoma from closest margin: 3mm from inferior margin Lymph-Vascular invasion: Not identified Dermal lymph-vascular invasion: Not applicable Ductal carcinoma in situ (DCIS): Present Estimated quantification: 2% Number of blocks: 4 of 9 Architectural patterns: Cribriform and solid nuclear grade 1/3 Necrosis: Not present Lobular carcinoma in situ (LCIS): Not present Lymph nodes: Not present Microcalcifications: Present and associated with invasive carcinoma. Treatment effect: No known presurgical therapy Additional pathologic findings: Changes of previous biopsy, mild fibrocystic change and associated microcalcifications Ancillary studies: Previously performed on same tumor ([id number] / [id number]). ER: Positive, >95% WA: Negative, 0%, Her2 annie: 2+ by immunohistochemistry and not amplified (1.1) by in situ hybridization Ki67: 5% Clinical history: Mass of breast PATHOLOGIC STAGE: T1c Nx Mx Treatment summary and response: March 2024 left breast lumpectomy. April 30, 2024 anastrozole- Interval History The patient is presenting to clinic today accompanied by spouse for routine 3-month follow-up. Interval history obtained from spouse he confirms she has been adherent to anastrozole. Taking calcium and vitamin D as advised. Witnesses hot flashes couple times a day. Sleeps well at night. Patient specifically denies new pain, changes in her breast, muscle ache/stiffness, urinary complaints, jaw pain. 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 Breast cancer Osteoporosis Wears hearing aid Wears glasses Osteoporosis Anxiety Depression Non-smoker Migraines Thyroid cancer Sciatica Arthritis Environmental allergies Hypothyroid HTN (hypertension) Enteritis Surgical History S/P breast lumpectomy H/O thyroidectomy History of facial surgery s/p pelvic floor reconstruction S/P hysterectomy Family History Other No pertinent family history Social History household members: spouse Smoking Status: Never smoker alcohol intake: never substance use type: does not use ROS ROS Narrative Negative except as documented in the interval HPI Intake Vital Signs 08/01/24 14:03 10/29/24 13:23 10/29/24 13:27 Height 5 ft 6 in 5 ft 6 in 5 ft 6 in Weight: 122 lb 1 oz 124 lb BMI 19.7 20.0 (more content not included)... Normal [facility] CBC W/Diff, Automatedon 01-0 8-2024 Absolute Lymph 1.55 X10 3/uL Normal 0.83-4.51 [facility] Comment on above: Performed By: #### L 506.1000, L100.0100, L500.4050, L501.2300 ####[facility] [address] [place], [address] Absolute Neut 4.6 X10 3/uL Normal 2.0-7.7 [facility] Comment on above: Performed By: #### L 506.1000, L100.0100, L500.4050, L501.2300 ####[facility] [address] [place], [address] Basophils/100 WBC (Bld) 0.7 % Normal 0-1 [facility] Comment on above: Performed By: #### L 506.1000, L100.0100, L500.4050, L501.2300 ####[facility] [address] [place], [address] Eosinophils/100 WBC (Bld) 0.9 % Normal 0-5 [facility] Comment on above: Performed By: #### L 506.1000, L100.0100, L500.4050, L501.2300 ####[facility] [address] [place], [address] Erythrocyte distribution width (RBC) [Ratio] 13.5 % Normal 11.6-14.6 [facility] Comment on above: Performed By: #### L 506.1000, L100.0100, L500.4050, L501.2300 ####[facility] [address] [place], [address] Hematocrit (Bld) [Volume fraction] 35.1 % Low 37-47 [facility] Comment on above: Performed By: #### L 506.1000, L100.0100, L500.4050, L501.2300 ####[facility] [address] [place], [address] Hemoglobin (Bld) [Mass/Vol] 11.7 g/dL Low 12.0-15.0 [facility] Comment on above: Performed By: #### L 506.1000, L100.0100, L500.4050, L501.2300 ####[facility] [address] [place], [address] IG% 0.400 Normal 0.0-0.9 [facility] Comment on above: Result Comment: IG% - Immature Granulocytes (promyelocytes, myelocytes and metamyelocytes) > 1% indicates that a LEFT SHIFT is Present. Performed By: #### L 506.1000, L100.0100, L500.4050, L501.2300 ####[facility] [address] [place], [address] Lymphocytes/100 WBC (Bld) 23.0 % Normal 19-41 [facility] Comment on above: Performed By: #### L 506.1000, L100.0100, L500.4050, L501.2300 ####[facility] [address] [place], [address] MCH (RBC) [Entitic mass] 31.9 pg Normal 27.0-32.0 [facility] Comment on above: Performed By: #### L 506.1000, L100.0100, L500.4050, L501.2300 ####[facility] [address] [place], [address] MCHC (RBC) [Mass/Vol] 33.3 g/dL Normal 32-36 [facility] Comment on above: Performed By: #### L 506.1000, L100.0100, L500.4050, L501.2300 ####[facility] [address] [place], [address] MCV (RBC) [Entitic vol] 95.6 fL Normal 81-99 [facility] Comment on above: Performed By: #### L 506.1000, L100.0100, L500.4050, L501.2300 ####[facility] [address] [place], [address] Monocytes/100 WBC (Bld) 6.4 % Normal 0-10 [facility] Comment on above: Performed By: #### L 506.1000, L100.0100, L500.4050, L501.2300 ####[facility] [address] [place], [address] Neutrophils/100 WBC (Bld) 68.6 % Normal 47-70 [facility] Comment on above: Performed By: #### L 506.1000, L100.0100, L500.4050, L501.2300 ####[facility] [address] [place], [address] Nucleated RBC (Bld) [#/Vol] 0 10*3/uL Normal 0-5 [facility] Comment on above: Performed By: #### L 506.1000, L100.0100, L500.4050, L501.2300 ####[facility] [address] [place], [address] Platelet mean volume (Bld) [Entitic vol] 11.6 fL Normal 6.2-12.0 [facility] Comment on above: Performed By: #### L 506.1000, L100.0100, L500.4050, L501.2300 ####[facility] [address] [place], [address] Platelets (Bld) [#/Vol] 188 10*3/uL Normal 150-450 [facility] Comment on above: Performed By: #### L 506.1000, L100.0100, L500.4050, L501.2300 ####[facility] [address] [place], [address] RBC (Bld) [#/Vol] 3.67 10*6/uL Low 4.2-5.4 [facility] Comment on above: Performed By: #### L 506.1000, L100.0100, L500.4050, L501.2300 ####[facility] [address] [place], [address] RDW SD 47.7 fl High 35.1-43.9 [facility] Comment on above: Performed By: #### L 506.1000, L100.0100, L500.4050, L501.2300 ####[facility] [address] [place], [address] WBC (Bld) [#/Vol] 6.7 10*3/uL Normal 4.4-11.0 [facility] Comment on above: Performed By: #### L 506.1000, L100.0100, L500.4050, L501.2300 ####[facility] [address] [place], [address] Comprehensive Metabolic Prof [facility] 08-01-2024 Albumin [Mass/Vol] 3.7 g/dL Normal 3.2-5.0 [facility] Comment on above: Performed By: #### L 506.1000, L100.0100, L500.4050, L501.2300 ####[facility] [address] [place], [address] Albumin/Globulin [Mass ratio] 1.1 {ratio} Normal 0.9-2.4 [facility] Comment on above: Performed By: #### L 506.1000, L100.0100, L500.4050, L501.2300 ####[facility] [address] [place], [address] ALK P 70 U/L Normal 45-117 [facility] Comment on above: Performed By: #### L 506.1000, L100.0100, L500.4050, L501.2300 ####[facility] [address] [place], [address] ALT [Catalytic activity/Vol] 13 U/L Normal 13-56 [facility] Comment on above: Performed By: #### L 506.1000, L100.0100, L500.4050, L501.2300 ####[facility] [address] [place], [address] AST [Catalytic activity/Vol] 16 U/L Normal 15-37 [facility] Comment on above: Performed By: #### L 506.1000, L100.0100, L500.4050, L501.2300 ####[facility] [address] [place], [address] Bilirubin [Mass/Vol] 0.30 mg/dL Normal 0.20-1.00 [facility] Comment on above: Result Comment: For patients on eltrombopag therapy, use of Dimension [place] TBIL is not recommended. Performed By: #### L 506.1000, L100.0100, L500.4050, L501.2300 ####[facility] [address] [place], [address] BUN/CRE 25.7 RATIO High 10-20 [facility] Comment on above: Performed By: #### L 506.1000, L100.0100, L500.4050, L501.2300 ####[facility] [address] [place], [address] CA,Total 9.1 mg/dL Normal 8.5-10.1 [facility] Comment on above: Performed By: #### L 506.1000, L100.0100, L500.4050, L501.2300 ####[facility] [address] [place], [address] Chloride [Moles/Vol] 103 mmol/L Normal 98-107 [facility] Comment on above: Performed By: #### L 506.1000, L100.0100, L500.4050, L501.2300 ####[facility] [address] [place], [address] CO2 [Moles/Vol] 31.0 mmol/L Normal 21.0-32.0 [facility] Comment on above: Performed By: #### L 506.1000, L100.0100, L500.4050, L501.2300 ####[facility] [address] [place], [address] Creatinine [Mass/Vol] 0.97 mg/dL Normal 0.55-1.02 [facility] Comment on above: Result Comment: The validity of the calculated GFR GFRAA in patients over 70 years has not been determined. Clinical correlation is essential. Performed By: #### L 506.1000, L100.0100, L500.4050, L501.2300 ####[facility] [address] [place], [address] EST GFR - AA 70 mL/min Normal >60 [facility] Comment on above: Result Comment: Afri can Argentine GFR Calc Performed By: #### L 506.1000, L100.0100, L500.4050, L501.2300 ####[facility] [address] [place], [address] GAP 6 Normal 5-15 [facility] Comment on above: Performed By: #### L 506.1000, L100.0100, L500.4050, L501.2300 ####[facility] [address] [place], [address] GFR/1.73 sq M.predicted among non-blacks MDRD (S/P/Bld) [Vol rate/Area] 58 mL/min/{1.73_m2} Low >60 [facility] Comment on above: Result Comment: Non- GFR Calc Performed By: #### L 506.1000, L100.0100, L500.4050, L501.2300 ####[facility] [address] [place], [address] Globulin (S) [Mass/Vol] 3.4 g/dL Normal 2.2-4.2 [facility] Comment on above: Performed By: #### L 506.1000, L100.0100, L500.4050, L501.2300 ####[facility] [address] [place], [address] Glucose [Mass/Vol] 123 mg/dL High 74-106 [facility] Comment on above: Result Comment: Fast ing Glucose result from 100 to 125 mg/dL suggests IMPAIRED HOMEOSTASIS per A.D.A. criteria. Performed By: #### L 506.1000, L100.0100, L500.4050, L501.2300 ####[facility] [address] [place], [address] Potassium [Moles/Vol] 3.7 mmol/L Normal 3.5-5.1 [facility] Comment on above: Performed By: #### L 506.1000, L100.0100, L500.4050, L501.2300 ####[facility] [address] [place], [address] Sodium [Moles/Vol] 140 mmol/L Normal 136-145 [facility] Comment on above: Performed By: #### L 506.1000, L100.0100, L500.4050, L501.2300 ####[facility] [address] [place], [address] T PROT 7.1 g/dL Normal 6.4-8.2 [facility] Comment on above: Performed By: #### L 506.1000, L100.0100, L500.4050, L501.2300 ####[facility] [address] [place], [address] Urea nitrogen [Mass/Vol] 25 mg/dL High 7-18 [facility] Comment on above: Performed By: #### L 506.1000, L100.0100, L500.4050, L501.2300 ####[facility] [id number] [place], [address] Oncology Visit Reporton Oncology Visit Report [facility] [address] [place] [address] OFFICE VISIT Date of Service: 08/01/24 1358 MR#: [id number] Acct: [id number] Name: ESTRADA MURO Rep #: [id number] : 1940 From: Cecilia Campbell NP TILE GRADER -C Age/Sex: 83/F [place] [facility] [place]: Signed HPI Subjective Date of Service 08/01/24 Chief Complaint Breast cancer History of Present Illness 83-year-old female underwent a screening mammogram on February 15, 2024 which showed a 1.1 x 0.8 cm spiculated nodule in the upper central portion of the left breast. February 24, 2024 and ultrasound confirmed the abnormality measuring 1.2 cm in maximum diameter BI-RADS Category 5. February 29, 2024 Left breast, core biopsy: Invasive ductal carcinoma. See synoptic report below. AM/mr 03/02/2024 COMMENT INVASIVE BREAST CANCER SUMMARY: Procedure: Needle core biopsy Specimen Laterality: Left breast Tumor site: Left breast Histologic type: Invasive ductal carcinoma Provisional Histologic grade: 2 Tubule Differentiation Score:2 Nuclear Pleomorphism Score: 2 Mitotic Rate Score: 1 Tumor Size ( greatest dimension): 8.5mm Ductal Carcinoma In situ: Not identified Angiolymphatic Invasion: Not identified Microcalcifications: Focally present Additional Findings: None Breast Marker Study: [id number] ER: >95% WA: 0% Her2: 2+ (equivocal) Ki67:5% Negative for overexpression of [id number] by FISH April 04, 2024 left breast lumpectomy: Left breast, lumpectomy: Invasive ductal carcinoma. See cancer template below. AM/mr 04/09/2024 COMMENT INVASIVE BREAST CANCER SUMMARY: Specimen: Partial breast Procedure: Excision without wire guidance Specimen integrity: Single intact specimen. Specimen size: 3.5 x 3.0 x 2.6 cm Specimen laterality: Left Specimen site: Not specified Tumor size: 1.4 x 1.2 x 1.0cm Tumor focality: Single focus of carcinoma Macroscopic and Microscopic extent of tumor: Skin: No skin present Nipple: No nipple present Skeletal muscle: No skeletal muscle present Histologic Grade (Shahid grade): Glandular/tubular differentiation score: 2 Nuclear pleomorphism score: 2 Mitotic count score: 1 Overall grade: 1 (score of 5) Margins: Distance of invasive and in situ carcinoma from closest margin: 3mm from inferior margin Lymph-Vascular invasion: Not identified Dermal lymph-vascular invasion: Not applicable Ductal carcinoma in situ (DCIS): Present Estimated quantification: 2% Number of blocks: 4 of 9 Architectural patterns: Cribriform and solid nuclear grade 1/3 Necrosis: Not present Lobular carcinoma in situ (LCIS): Not present Lymph nodes: Not present Microcalcifications: Present and associated with invasive carcinoma. Treatment effect: No known presurgical therapy Additional pathologic findings: Changes of previous biopsy, mild fibrocystic change and associated microcalcifications Ancillary studies: Previously performed on same tumor ([id number] / [id number]). ER: Positive, >95% WA: Negative, 0%, Her2 annie: 2+ by immunohistochemistry and not amplified (1.1) by in situ hybridization Ki67: 5% Clinical history: Mass of breast PATHOLOGIC STAGE: T1c Nx Mx Treatment summary and response: March 2024 left breast lumpectomy. April 30, 2024 anastrozole- Interval History The patient is presenting to clinic today accompanied by spouse for routine 3-month follow-up. Interval history obtained from spouse he confirms she has been adherent to anastrozole. Taking calcium and vitamin D as advised. Witnesses hot flashes couple times a day. Sleeps well at night. Patient specifically denies new pain, changes in her breast, muscle ache/stiffness, urinary complaints, jaw pain. 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 Breast cancer Osteoporosis Wears hearing aid Wears glasses Osteoporosis Anxiety Depression Non-smoker Migraines Thyroid cancer Sciatica Arthritis Environmental allergies Hypothyroid HTN (hypertension) Enteritis Surgical History S/P breast lumpectomy H/O thyroidectomy History of facial surgery s/p pelvic floor reconstruction S/P hysterectomy Family History Other No pertinent family history Social History household members: spouse Smoking Status: Never smoker alcohol intake: never substance use type: does not use ROS ROS Narrative Negative except as documented in the interval HPI Intake Vital Signs 04/30/24 14:48 08/01/24 14:00 08/01/24 14:03 Height 5 ft 6 in 5 ft 6 in 5 ft 6 in Weight: 119 lb 4 oz 122 lb 1 oz BMI 19.2 19 (more content not included)... Normal [facility] Phosphoruson 08-01-2024 Phosphate [Mass/Vol] 3.4 mg/dL Normal 2.5-4.9 [facility] Comment on above: Performed By: #### L 506.1000, L100.0100, L500.4050, L501.2300 ####[facility] [id number] [facility] [place], [id number] Vitamin D,25 Hydroxyon 08-01 Vitamin D 25-OH 34.3 ng/mL Normal [facility] Comment on above: Result Comment: Analisa min D 25(OH) Status Range Deficiency <20 ng/mL (50nmol/L) Insufficiency 20 - 30 ng/mL (50 - 75 nmol/L) Sufficiency 30 - 100 ng/mL (75 - 250 nmol/L) Toxicity >100 ng/mL (>250 nmol/L) Performed By: #### L 506.1000, L100.0100, L500.4050, L501.2300 ####[facility] [id number] [facility] [place], [id number] Oncology Visit Reporton Oncology Visit Report [facility] [address] [place] [address] OFFICE VISIT Date of Service: 04/30/24 1445 MR#: [id number] Acct: [id number] Name: ESTRADA MURO Rep #: [id number] : 1940 From: Laurence Mayer MD Age/Sex: 83/F [place] [facility] [place] Status: Signed HPI Subjective Date of Service 04/30/24 Chief Complaint Breast cancer History of Present Illness 83-year-old female underwent a screening mammogram on February 15, 2024 which showed a 1.1 x 0.8 cm spiculated nodule in the upper central portion of the left breast. February 24, 2024 and ultrasound confirmed the abnormality measuring 1.2 cm in maximum diameter BI-RADS Category 5. February 29, 2024 Left breast, core biopsy: Invasive ductal carcinoma. See synoptic report below. AM/mr 03/02/2024 COMMENT INVASIVE BREAST CANCER SUMMARY: Procedure: Needle core biopsy Specimen Laterality: Left breast Tumor site: Left breast Histologic type: Invasive ductal carcinoma Provisional Histologic grade: 2 Tubule Differentiation Score:2 Nuclear Pleomorphism Score: 2 Mitotic Rate Score: 1 Tumor Size ( greatest dimension): 8.5mm Ductal Carcinoma In situ: Not identified Angiolymphatic Invasion: Not identified Microcalcifications: Focally present Additional Findings: None Breast Marker Study: [id number] ER: >95% WA: 0% Her2: 2+ (equivocal) Ki67:5% Negative for overexpression of IPU5zve by FISH April 04, 2024 left breast lumpectomy: Left breast, lumpectomy: Invasive ductal carcinoma. See cancer template below. AM/mr 04/09/2024 COMMENT INVASIVE BREAST CANCER SUMMARY: Specimen: Partial breast Procedure: Excision without wire guidance Specimen integrity: Single intact specimen. Specimen size: 3.5 x 3.0 x 2.6 cm Specimen laterality: Left Specimen site: Not specified Tumor size: 1.4 x 1.2 x 1.0cm Tumor focality: Single focus of carcinoma Macroscopic and Microscopic extent of tumor: Skin: No skin present Nipple: No nipple present Skeletal muscle: No skeletal muscle present Histologic Grade (Littleton grade): Glandular/tubular differentiation score: 2 Nuclear pleomorphism score: 2 Mitotic count score: 1 Overall grade: 1 (score of 5) Margins: Distance of invasive and in situ carcinoma from closest margin: 3mm from inferior margin Lymph-Vascular invasion: Not identified Dermal lymph-vascular invasion: Not applicable Ductal carcinoma in situ (DCIS): Present Estimated quantification: 2% Number of blocks: 4 of 9 Architectural patterns: Cribriform and solid nuclear grade 1/3 Necrosis: Not present Lobular carcinoma in situ (LCIS): Not present Lymph nodes: Not present Microcalcifications: Present and associated with invasive carcinoma. Treatment effect: No known presurgical therapy Additional pathologic findings: Changes of previous biopsy, mild fibrocystic change and associated microcalcifications Ancillary studies: Previously performed on same tumor ([id number] / [id number]). ER: Positive, >95% WA: Negative, 0%, Her2 annie: 2+ by immunohistochemistry and not amplified (1.1) by in situ hybridization Ki67: 5% Clinical history: Mass of breast PATHOLOGIC STAGE: T1c Nx Mx Treatment summary and response: March 2024 left breast lumpectomy. [facility] Medical History Wears hearing aid Wears glasses Osteoporosis Anxiety Depression Non-smoker Migraines Thyroid cancer Sciatica Arthritis Environmental allergies Hypothyroid HTN (hypertension) Enteritis Surgical History S/P breast lumpectomy H/O thyroidectomy History of facial surgery s/p pelvic floor reconstruction S/P hysterectomy Family History Other No pertinent family history Social History household members: spouse Smoking Status: Never smoker alcohol intake: never substance use type: does not use ROS ROS Narrative She recovered well from surgery. Photophobic exam please see my note of March 14, 2024 Review of Systems ROS Unobtainable: due to mental status; Denies due to encephalopathy, due to endotracheal tube, due to mental condition or other Intake Vital Signs 03/29/24 08:07 04/04/24 09:43 04/30/24 14:46 04/30/24 14:48 Height 5 ft 7 in 5 ft 6 in 5 ft 6 in 5 ft 6 in Weight: 54.091 kg BMI 19.2 BP 128/83 H Blood Pressure Location Lt brachial Position Sitting Respiration 18 Pulse 76 Pulse Source Monitor Temp 96.7 F L Temperature Source Temporal Artery Pulse Oximetry (%) 99 Oxygen Delivery Method room air Intake Is patient in pain?: No Allergies No Known Allergies Allergy (Verified 04/30/24 14:48) Medications ???Medicati (more content not included)... Normal [facility] Surgery Visit Reporton 04-30 Surgery Visit Report [facility] [address] [place] [address] OFFICE VISIT Date of Service: 04/30/24 MR#: [id number] Acct: [id number] Name: ESTRADA MURO Rep #: [id number] : 1940 Provider: KASSANDRA skaggs Age/Sex: 83/F Location: [facility] Status: Signed Intake Vital Signs 04/04/24 09:43 Height 5 ft 6 in Intake Visit Reasons: Left breast lumpectomy DOS 04/04 Chief Complaint: left breast lumpectomy Allergies No Known Allergies Allergy (Verified 04/30/24 13:54) Medications ???Medication ???Instructions ???Recorded ???Confirmed ???Type levothyroxine 75 mcg tablet 75 mcg PO SUTUTHSA 02/22/24 04/30/24 History (Synthroid) levothyroxine 88 mcg tablet 88 mcg PO MOWEFR 02/22/24 04/30/24 History (Synthroid) memantine 14 mg capsule 14 mg PO QDAY 02/22/24 04/30/24 History sprinkle,extended release 24hr duloxetine 20 mg capsule,delayed 20 mg PO BID 03/29/24 04/30/24 History release lisinopril 20 mg tablet 20 mg PO BID 03/29/24 04/30/24 History Have you fallen in the past year?: No Subjective Details: Patient is an 83 y/o F I am following s/p left breast lumpectomy on 04/04/[address] Mariee. She returns for an incision check. She denies any tenderness or pain at the incision site. She denies any incisional drainage. Her has been applying triple antibiotic ointment to the incision twice daily. She has continued to apply heat twice daily. Objective Details: Left breast- incision c/d/i. Moderate amount of ecchymosis in the inferior aspect of the breast. Small palpable lump under the incision consistent with a hematoma. Negative fluid wave. No active drainage noted. Non-tender to palpation. Coding Level of Care Code Global Post Op Diagnoses S/P breast lumpectomy Z98.890 Invasive ductal carcinoma of breast C50.919 [facility] Medical History Wears hearing aid Wears glasses Osteoporosis Anxiety Depression Non-smoker Migraines Thyroid cancer Sciatica Arthritis Environmental allergies Hypothyroid HTN (hypertension) Enteritis Surgical History S/P breast lumpectomy H/O thyroidectomy History of facial surgery s/p pelvic floor reconstruction S/P hysterectomy Family History Other No pertinent family history Social History household members: spouse Smoking Status: Never smoker alcohol intake: never substance use type: does not use Assessment and Plan (No Qualifiers) Assessment and Plan (1) S/P breast lumpectomy: Status: Acute (2) Invasive ductal carcinoma of breast: Status: Acute Plan Patient to follow-up with oncology today Continue warm moist heat twice daily Discussed hematoma may take approximately several months to resolve Follow-up as needed 04/30/24 1415 Date Opal Guillaume Signature: Date (if applicable) CC: Dr. Antonella Loyola DO; Dr. Miguel Mariee MD Normal [facility] Surgery Visit Reporton 04-16 Surgery Visit Report [facility] [address] [place] [address] OFFICE VISIT Date of Service: 04/16/24 MR#: [id number] Acct: [id number] Name: ESTRADA MURO Rep #: [id number] : 1940 Provider: Dr. Miguel chatterjee MD Age/Sex: 83/F Location: [facility] Status: Signed Intake Vital Signs 04/04/24 09:43 Height 5 ft 6 in Intake Visit Reasons: Left breast lumpectomy DOS 04/04 Chief Complaint: left breast lumpectomy Accompanied by: Is patient in pain?: No Allergies No Known Allergies Allergy (Verified 04/16/24 09:48) Medications ???Medication ???Instructions ???Recorded ???Confirmed ???Type levothyroxine 75 mcg tablet 75 mcg PO SUTUTHSA 02/22/24 04/16/24 History (Synthroid) levothyroxine 88 mcg tablet 88 mcg PO MOWEFR 02/22/24 04/16/24 History (Synthroid) memantine 14 mg capsule 14 mg PO QDAY 02/22/24 04/16/24 History sprinkle,extended release 24hr duloxetine 20 mg capsule,delayed 20 mg PO BID 03/29/24 04/16/24 History release lisinopril 20 mg tablet 20 mg PO BID 03/29/24 04/16/24 History Have you fallen in the past year?: No Subjective Details: Patient presents following left breast lumpectomy on 04/04/2024. Since hospital discharge they have been doing well. They report no significant postoperative pain. They have no wound concerns. She presents today with her who states that she did very well following anesthesia and had no signs of confusion. Objective Details: Constitutional: Patient replies appropriately and appears at baseline Breast: Significant ecchymosis and discoloration of the skin of the breast pulling dependently in the inferior aspect of the breast. There is also fullness deep to the incision line which is approximated and well-healing with slight scabbing. Ultrasound is applied to this area and identify a 4.8 x 4.8 x 2.4 cm fluid???containing pocket with solid components along the periphery (particularly inferiorly) suggestive of subcutaneous hematoma Coding Level of Care Code Global Post Op Diagnoses S/P breast lumpectomy Z98.890 Invasive ductal carcinoma of breast C50.919 [facility] Medical History (Updated 04/16/24 @ 16:[address] Miguel Mariee MD) Wears hearing aid Wears glasses Osteoporosis Anxiety Depression Non-smoker Migraines Thyroid cancer Sciatica Arthritis Environmental allergies Hypothyroid HTN (hypertension) Enteritis Surgical History (Updated 04/16/24 @ 16:[address] Miguel Mariee MD) S/P breast lumpectomy H/O thyroidectomy History of facial surgery s/p pelvic floor reconstruction S/P hysterectomy Family History Other No pertinent family history Social History household members: spouse Smoking Status: Never smoker alcohol intake: never substance use type: does not use Assessment and Plan (No Qualifiers) Assessment and Plan (1) S/P breast lumpectomy: Status: Acute Comment: Patient 83-year-old female who is recovering following left breast lumpectomy that appears to be complicated by postoperative hematoma. Patient asymptomatic. Believes hematoma is resolving at this point but there are solid components that suggest parts of the clot are yet to liquefied. There are no signs of infection. At this point in patient's recovery I have recommended considering use of local heat to try to hasten the reabsorption. I would also like to see her in follow-up in our clinic for wound check to ensure that things are resolving as expected. Patient and her are in agreement. Plan: ??? Patient advised to apply triple antibiotic ointment twice a day to incision x 1 week ??? Patient welcome to try local heat to the area to try to hasten her absorption of hematoma (2) Invasive ductal carcinoma of breast: Status: Acute Comment: Patient 83-year-old female with recent biopsied???confirmed diagnosis of invasive ductal carcinoma of the left breast. She is now status post left breast lumpectomy which she tolerated well apart from postoperative hematoma. Surgical path consistent with T1 NX MX 1.4 cm primary tumor with associated DCIS. Fortunately DCIS was 3 mm from the margin at the closest margin???indicating adequate excision. Immunohistochemistry confirms strongly positive for estrogen receptors. Patient to return back to oncology for initiation of hormone therapy Plan: ??? Refer back to oncology 04/16/24 1657 Date [facility]: Date (if applicable) CC: Dr. Antonella Loyola, DO Normal [facility] Discharge Instructionon 03-25 Discharge Instruction [facility] Medical Records Department [address] [place] [address] Instructions for Home/Discharge Instructions 04/04/24 1214 MR#: [id number] Acct: [id number] Name: ESTRADA MURO Rep #: [id number] : 1940 83 From: Miguel Mariee MD PCP: Dr. Antonella Loyola, DO Status:[facility] Discharge Instructions Diet Discharge Diet: No restrictions Activity Discharge Activity: May Drive (No driving while using narcotic pain medication) May shower in (days): 2 Ice area for (Minutes): 20 Lifting Restrictions: Limit lifting with left upper extremity to no more than 5 pounds Dressing / Incision Call your doctor if your incision/area has: Continuous Slow Oozing, Sudden Increased Bleeding, Increased Pain/ Swelling, Increased Redness, Foul Smelling Discharge and Swelling at the incision site Call your doctor if you observe: Fever of 101 or Higher Suture Line Care: Avoid Pulling/Pushing Remove Dressing in: 2 days Cleanse incision/area with: Soap Water Additional Dressing/Incision Instructions:: Please leave Steri-Strips intact until they fall off spontaneously or are taken off at your follow-up visit Follow Up Care Please Follow Up With: Miguel Mariee MD When: 10-14 days postop Test Results: Test results from this visit will be discussed in further detail at your follow-up appointment, if applicable. Discharge Plan Admission Primary Reason for Your Visit: Left breast lumpectomy Attending Provider: Miguel Mariee Primary Care Provider: Antonella Loyola Instructions Print Language: Burmese Discharge Orders/Prescriptions Prescriptions: Continued levothyroxine [Synthroid] 88 mcg tablet 88 mcg PO MOWEFR levothyroxine [Synthroid] 75 mcg tablet 75 mcg PO SUTUTHSA memantine 14 mg capsule,sprinkle,ER 24hr 14 mg PO QDAY lisinopril 20 mg tablet 20 mg PO BID duloxetine 20 mg capsule,delayed release(DR/EC) 20 mg PO BID Referrals / Follow Up: Antonella Loyola DO [Primary Care Provider] - Disposition Disposition (needs filled in before D/C Order can be placed): Home, Self Care 04/05/24 1621 Miguel Mariee MD CC: Dr. Antonella Loyola DO Signed [facility] MR/POSTOP.[facility] 04-04-2024 MR/POSTOP.[facility] Medical Records Department [address] [place] [address] Anesthesia Postop Eval I 04/04/24 1145 MR#: [id number] Acct: [id number] Name: ESTRADA MURO Rep #: [id number] : 1940 83 From: Edgar Tovar MD PCP: Dr. Antonella Loyola DO Status:REG SDC Y Race: C Location: [place] [address] Anesthesia: Postop Eval I Current Vital Signs Temperature: 97.5 F Pulse Rate: 65 Blood Pressure: 115/75 Respiratory Rate: 16 Pulse Ox: 100 Assessment Airway patent: Yes Spontaneous unlabored respirations: Yes nausea: No Vomiting: No Anesthesia Complication: No Fluid Hydration Crystalloid volume administer (ml): 1,000 Total IV fluid infused: 1,000 Progress Note Anesthesia document: Postop Eval 1 completed: Yes 04/04/24 1215 Date Edgar Tovar MD Cosigner Signature: Date CC: Signed [facility] MR/[id number] 04-04-2024 MR/POSTOPAN2 [facility] Medical Records Department [address] [place] [address] Anesthesia Postop Eval II 04/04/24 1239 MR#: [id number] Acct: [id number] Name: ESTRADA MURO Rep #: [id number] : 1940 83 From: Huey Damico MD PCP: Dr. Antonella Loyola, DO Status:REG SDC Y Race: C Location: [facility]- Anesthesia Postop Eval I Sum Postop Eval Completion status Anesthesia document: Postop Eval 1 completed: Yes Anesthesia Postop Eval I Summary Anesthesia Postop Eval I Summary: Anesthesia Postop Eval I: Assessment Summary Airway patent Yes 04/04/24 11:46 Spontaneous unlabored Yes 04/04/24 11:46 respirations Mental status nausea No 04/04/24 11:46 Vomiting No 04/04/24 11:46 Anesthesia Postop Eval I: Fluid Summary Crystalloid volume administer 1,000 04/04/24 11:46 (ml) Colloids volume administered ( ml) Blood Product volume administered (ml) Total IV fluid infused 1,000 04/04/24 11:46 Anesthesia Postop Eval I: Summary Notes Anesthesia Complication No 04/04/24 11:46 Anesthesia Complication Comment: Post-operative progress note Anesthesia: Postop Eval II Evaluation Mental status: Awake Pain Level: 0 nausea: No Vomiting: No 04/04/24 1239 Date Huey Guillaume Signature: Date CC: Signed Normal [facility] Operative Reporton Operative Report [facility] Medical Records Department [address] [place] [address] Operative Report 04/04/24 1211 MR#: [id number] Acct: [id number] Name: ESTRADA MURO Rep #: [id number] : 1940 83 From: Miguel Mariee MD PCP: Dr. Antonella Loyola, DO Status:[facility] Location: [place] [address] Report of Operation Date of Procedure: 04/04/24 Pre-Operative Diagnosis: Left breast cancer Post-Operative Diagnosis: Same Surgery/Procedure Performed:: Left breast lumpectomy Description of Surgical Findings:: ??? Firm tissue along the deep margin but remaining cavity demonstrated no palpable irregularities ??? Specimen oriented and marked with suture short superior long lateral Surgeon: Miguel Mariee cashier payments received: Diamond Macias Type of Anesthesia: MAC/Supplemental/Local Anesthesiologist: Edgar Tovar Specimen's removed: Left breast lumpectomy Estimated Blood Loss (mL): 5 Description of Procedure: After appropriate identification in the preoperative holding area patient was positioned supine on the operating room table. Preoperative antibiotics and sedation were begun by anesthesia. An ultrasound was used to map out the location of the breast mass in the upper outer quadrant of the left breast. An incision was planned and marked based on this mapping. The left breast was then prepped and draped in the usual sterile fashion. Formal timeout was conducted to confirm both patient and procedure. Local anesthetic (total volume of 28 mL) was instilled in the appointed location and an approximately 5 cm transverse incision was made sharply. This was deepened with the use of electrocautery. Sharply the area of dissection was extended beneath the skin taking care to preserve the viability of the skin by maintaining a safe distance from the dermis. I continually use palpation as well as reinspected our original markings to be sure I maintained a consistent margin circumferentially about the area of interest. Once I had achieved the appropriate circumferential excision and confirmed our depth the breast tissue was amputated from the cavity. It was oriented such that the short stitch marked the superior margin and the long stitch chance the lateral margin. It was then passed off the field for pathology. Then the biopsy cavity was palpated and I did not identify any suspicious mass lesions. The cavity was irrigated with sterile water and inspected for hemostasis. 4 small clips were used to maximo the posterior extent of our biopsy cavity for later radiation targeting. The cavity was then closed at a deep dermal level with a running 3-0 Vicryl. Then the skin was closed in a subcuticular fashion with 4-0 Monocryl. Steri-Strips and OpSite bandages were applied. The patient was awoken from anesthetic without issue and delivered to PACU for ongoing care. Grafts/Implants Used: None Complications None Procedures Integumentary [id number]: [id number] Partial mastectomy 04/04/24 1322 Cosigner Signature (if applicable): CC: Dr. Antonella Loyola DO; Dr. Miguel Mariee MD Signed Normal [facility] Surgery Specimen Level Von 0 04-04-2024 Surgery Specimen Level V Patient Age/Sex Location Account Attending Physician ESTRADA MURO 83/F [facility] [id number] Dr. Miguel Mariee MD Specimen: [id number] Received: 04/05/24 Status: YFN Mahan Num: [id number] Spec Type: BREAST Subm Dr: Dr. Miguel Mariee MD HEADER OPERATION: Breast, left lumpectomy PRE-OP DIAGNOSIS: Left breast intraductal carcinoma TISSUE SUBMITTED: Left breast mass- marking stitch: short stitch-superior, long stitch- lateral MICROSCOPIC DIAGNOSIS Left breast, lumpectomy: Invasive ductal carcinoma. See cancer template below. AM/ 04/09/2024 COMMENT INVASIVE BREAST CANCER SUMMARY: Specimen: Partial breast Procedure: Excision without wire guidance Specimen integrity: Single intact specimen. Specimen size: 3.5 x 3.0 x 2.6 cm Specimen laterality: Left Specimen site: Not specified Tumor size: 1.4 x 1.2 x 1.0cm Tumor focality: Single focus of carcinoma Macroscopic and Microscopic extent of tumor: Skin: No skin present Nipple: No nipple present Skeletal muscle: No skeletal muscle present Histologic Grade (Shahid grade): Glandular/tubular differentiation score: 2 Nuclear pleomorphism score: 2 Mitotic count score: 1 Overall grade: 1 (score of 5) Margins: Distance of invasive and in situ carcinoma from closest margin: 3mm from inferior margin Lymph-Vascular invasion: Not identified Dermal lymph-vascular invasion: Not applicable Ductal carcinoma in situ (DCIS): Present Estimated quantification: 2% Number of blocks: 4 of 9 Architectural patterns: Cribriform and solid nuclear grade 1/3 Necrosis: Not present Lobular carcinoma in situ (LCIS): Not present Lymph nodes: Not present Microcalcifications: Present and associated with invasive carcinoma. Treatment effect: No known presurgical therapy Patient Age/Sex Location Account Attending Physician ESTRADA MURO 83/F [facility] [id number] Dr. Miguel Mariee MD Additional pathologic findings: Changes of previous biopsy, mild fibrocystic change and associated microcalcifications Ancillary studies: Previously performed on same tumor ([id number] / [id number]). ER: Positive, >95% WA: Negative, 0%, Her2 annie: 2+ by immunohistochemistry and not amplified (1.1) by in situ hybridization Ki67: 5% Clinical history: Mass of breast PATHOLOGIC STAGE: T1c Nx Mx The above summary is in compliance with [employer] [place] [employer] (CAP) Cancer Protocols Checklist and [place] Joint Committee on Cancer (AJCC), Staging Manual, 8th Ed. Case has been reviewed in consultation with Dr. Carrillo who concurs with the above diagnosis. IDC:SJ MICROSCOPIC DESCRIPTION Slides are reviewed. GROSS DESCRIPTION Received in fixative is one container labeled with the patient's name and designated Left breast mass. The specimen consists of an oriented fragment of rosenthal-yellow fatty tissue measuring 3.5 x 3.0 x 2.6cm and weighing 13.0gm. The specimen is inked as follows: anterior - yellow, posterior - black, superior - blue, inferior - green, medial - red and lateral - orange. Serial sections reveal a firm white elongated, non-distinct area measuring 1.5 x 0.6 x 1.0cm that is present at <0.1cm from the inferior margin, grossly. A metallic clip is identified in the mid-portion of this lesion. The specimen is serially sectioned and totally submitted in nine cassettes after additional fixation. PATI/ 04/05/2024 TC:0 CPT:50348 Patient Age/Sex Location Account Attending Physician ESTRADA MURO 83/F [facility] [id number] Dr. Miguel Mariee MD Signed (signature on file) Dr. Levi Rose DO 04/09/24 1256 [facility] Comment on above: Performed By: #### P SUV #### [facility] [address] [place], [address] Surgery Visit Reporton 03-29 Surgery Visit Report [facility] [address] [place] [address] OFFICE VISIT Date of Service: 03/29/24 MR#: [id number] Acct: [id number] Name: ESTRADA MURO Rep #: [id number] : 1940 Provider: Dr. Miguel chatterjee MD Age/Sex: 83/F Location: [facility] Status: Signed Intake Vital Signs 03/14/24 15:28 03/29/24 08:07 Height 5 ft 7 in 5 ft 7 in Weight: 123 lb 8 oz 123 lb 6 oz BMI 19.3 19.3 BP 144/80 H 143/85 H Blood Pressure Location Lt brachial Rt brachial Position Sitting Sitting Respiration 16 17 Pulse 74 78 Pulse Source Monitor Monitor Temp 97.7 F L Pulse Oximetry (%) 97 98 Oxygen Delivery Method room air room air Intake Visit Reasons: DISCUSS BREAST SURGREY Chief Complaint: discuss breast surgery Is patient in pain?: No Allergies No Known Allergies Allergy (Verified 03/29/24 15:37) Medications ???Medication ???Instructions ???Recorded ???Confirmed ???Type levothyroxine 75 mcg tablet 75 mcg PO SUTUTHSA 02/22/24 03/29/24 History (Synthroid) levothyroxine 88 mcg tablet 88 mcg PO MOWEFR 02/22/24 03/29/24 History (Synthroid) memantine 14 mg capsule 14 mg PO QDAY 02/22/24 03/29/24 History sprinkle,extended release 24hr duloxetine 20 mg capsule,delayed 20 mg PO BID 03/29/24 03/29/24 History release lisinopril 20 mg tablet 20 mg PO BID 03/29/24 03/29/24 History Have you fallen in the past year?: No PFSH Medical History (Updated 03/29/24 @ 17:[address] Miguel Mariee MD) Wears hearing aid Wears glasses Osteoporosis Anxiety Depression Non-smoker Migraines Thyroid cancer Sciatica Arthritis Environmental allergies Hypothyroid HTN (hypertension) Enteritis Surgical History H/O thyroidectomy History of facial surgery s/p pelvic floor reconstruction S/P hysterectomy Family History Other No pertinent family history Social History household members: spouse Smoking Status: Never smoker alcohol intake: never substance use type: does not use HPI HPI HPI: Patient is an 83-year-old female who presents for an abnormal screening mammographic finding and had made her initial consultation visit 02/22/2024. She underwent core needle biopsy of this area on 02/29/2024 which confirmed the presence of invasive ductal carcinoma. In the meantime patient has met with oncology, Dr. Mayer on 03/15/2024. She presents today with her . She confirms that she has healed well following her biopsy and denies any pain from the breast site. Patient is an 83-year-old female who presents for an abnormal screening mammographic finding and had made her initial consultation visit 02/22/2024. However, at that visit she had not completed a reflex ultrasound and was able to have this study completed in the interim on 02/24/2024. This confirmed the presence of a 1.2 cm hypoechoic area 5 cm from the nipple along the 12 o'clock position. Patient presents to today's visit with her sister. Below is recapitulated from patient's initial consultation visit for ease of review: Patient is a 83-year-old female who presents for abnormal screening mammogram finding. She presents today with her . They are referred from Dr. Loyola. Based on mammographic imaging criteria this was given a BI-RADS 4. Interestingly no reflex ultrasound was performed. Patient has a history of dementia and so much of her history is gleaned from her . Patient has no prior history of breast pathology. She thus has no history of prior breast biopsy. She underwent menarche at the age of 15. She has had 1 pregnancies and 1 live births. Patient has no first- degree relatives with breast cancer. There is no tenderness with the present finding. There is no nipple discharge associated with this finding. The patient is no history of hormone replacement therapy. There is no history of trauma/infection to the affected breast. ROS General General: No weight change, appetite, fatigue, colon cancer, breast cancer or weakness HEENT HEENT: No difficulty swallowing, eye injury, eye surgery, swollen glands or hoarseness Endo Endocrine: Yes thyroid disease; No diabetes mellitus, thyroid cancer, Hair loss, heat intolerance or cold intolerance Skin Skin: No rash or changing moles Breast Breast: Yes abnormal mammogram; No left breast lump, right breast lump, nipple discharge, breast pain, abnormal US or breast enlargement Musc Musculoskeletal: Yes arthritis; No back problems, rheumatoid arthritis, gout or joint pain Cardio Cardiovascular: No murmur, pacemaker, heart disease, atrial fibrillation, high blood pressure, heart attack, heart stent, palpitati (more content not included)... Normal [facility] Oncology Visit Reporton 02-23 Oncology Visit Report [facility] [address] [place] [address] [place] [address] OFFICE VISIT Date of Service: 03/14/24 1520 MR#: [id number] Acct: [id number] Name: ESTRADA MURO Bhanu Rep #: [id number] : 1940 From: Laurence Mayer MD Age/Sex: 83/F Location: [facility] Status: Signed HPI Subjective Date of Service 03/14/24 Chief Complaint Breast cancer History of Present Illness 83-year-old female underwent a screening mammogram on February 15, 2024 which showed a 1.1 x 0.8 cm spiculated nodule in the upper central portion of the left breast. February 24, 2024 and ultrasound confirmed the abnormality measuring 1.2 cm in maximum diameter BI-RADS Category 5. February 29, 2024 Left breast, core biopsy: Invasive ductal carcinoma. See synoptic report below. AM/mr 03/02/2024 COMMENT INVASIVE BREAST CANCER SUMMARY: Procedure: Needle core biopsy Specimen Laterality: Left breast Tumor site: Left breast Histologic type: Invasive ductal carcinoma Provisional Histologic grade: 2 Tubule Differentiation Score:2 Nuclear Pleomorphism Score: 2 Mitotic Rate Score: 1 Tumor Size ( greatest dimension): 8.5mm Ductal Carcinoma In situ: Not identified Angiolymphatic Invasion: Not identified Microcalcifications: Focally present Additional Findings: None Breast Marker Study: [id number] ER: >95% WA: 0% Her2: 2+ (equivocal) Ki67:5% Negative for overexpression of BLQ4qjn by FISH [facility] Medical History Osteoporosis Anxiety Depression Non-smoker Migraines Thyroid cancer Sciatica Arthritis Environmental allergies Hypothyroid HTN (hypertension) Enteritis Surgical History H/O thyroidectomy History of facial surgery s/p pelvic floor reconstruction S/P hysterectomy Family History (Updated 03/14/24 @ 15:28 by Glory Flores) Other No pertinent family history Social History household members: spouse Smoking Status: Never smoker alcohol intake: never substance use type: does not use ROS ROS Narrative Systems review was obtained from patient and her . She suffers from dementia and has a poor recent memory recall. Review of Systems ROS Unobtainable: due to encephalopathy Constitutional Constitutional: Reports systems reviewed and no addt'l complaints, except as documented Eyes Eyes: Reports systems reviewed and no addt'l complaints, except as documented ENT HEENT: Reports systems reviewed and no addt'l complaints, except as documented Cardiovascular Cardiovascular: Reports systems reviewed and no addt'l complaints, except as documented; Denies chest pain with activity or edema Respiratory/Chest Respiratory/Chest: Reports systems reviewed and no addt'l complaints, except as documented; Denies dyspnea Gastrointestinal Gastrointestinal: Reports systems reviewed and no addt'l complaints, except as documented Genitourinary Genitourinary: Reports systems reviewed and no addt'l complaints, except as documented Musculoskeletal Musculoskeletal: Reports systems reviewed and no addt'l complaints, except as documented Integumentary Integumentary: Reports systems reviewed and no addt'l complaints, except as documented; Denies new lesions Neurologic Neurologic: Reports systems reviewed and no addt'l complaints, except as documented and memory loss; Denies focal weakness, frequent falls or headache(s) Psychiatric Psychiatric: Reports systems reviewed and no addt'l complaints, except as documented Endocrine Endocrinology: Reports systems reviewed and no addt'l complaints, except as documented Hematologic/Lymphatic Hematologic/Lymphatic: Reports systems reviewed and no addt'l complaints, except as documented Allergic/Immunologic Allergic/Immunologic: Reports systems reviewed and no addt'l complaints, except as documented Intake Vital Signs 02/22/24 10:23 03/14/24 15:23 03/14/24 15:28 Height 5 ft 7 in 5 ft 7 in 5 ft 7 in Weight: 55.338 kg 56.019 kg BMI 19.1 19.3 BP 170/90 H 144/80 H Blood Pressure Location Rt brachial Lt brachial Position Sitting Sitting Respiration 18 16 Pulse 71 74 Pulse Source Monitor Monitor Temp 97.2 F L 97.7 F L Temperature Source Temporal Artery Pulse Oximetry (%) 97 97 Oxygen Delivery Method room air room air Intake Is patient in pain?: No Allergies No Known Allergies Allergy (Verified 03/14/24 15:25) Medications ???Medication ???Instructions ???Recorded ???Confirmed ???Type levothyroxine 75 mcg tablet mcg PO 02/22/24 03/14/24 History (Synthroid) levothyroxine 88 mcg tablet mcg PO 02/22/24 03/14/24 History (Synthroid) memantine 14 mg capsule 14 mg PO QDAY 02/22/24 03/14/24 History fred fabian (more content not included)... Normal [facility] ER (initial)on 02-29-2024 ER (initial) ---- Patient Age/Sex Location Account Attending Physician ESTRADA MURO 83/F [facility] [id number] Dr. Miguel Mariee MD Specimen: [id number] Received: 03/02/24-105 Status: YFN [place]an Num: [id number] Spec Type: IMMUNO Subm Dr: Dr. Miguel Mariee MD THIS IS A CORRECTED REPORT 03/06/24-1213 PHYSICIAN INSTITUTION [place] [address] SPECIMEN INFORMATION: Tissue Source: Left breast biopsy Clinical Info: Abnormal mammogram Specimen Number: [id number] CPT code: 97758,93250x6,58004z5 METHODOLOGY: Deparaffinized sections of prefer/formalin-fixed tissue or PAP/DQ stained slides are incubated with monoclonal/polyclonal antibodies/oligonucleoti de probes. Localization is made via biotin free immunoperoxidase method. Appropriate controls are performed and reacted as expected. Results on target cell population are indicated in the following table: RESULTS: ANTIBODY / CLONE RESULT P53 (DO-7) positive, wild type pattern Ki-67 (30-9) positive, 5% CK8 (93lczvZ61) positive CK5-6 (D5 1684) negative Calponin-1 (GO416Q) negative P40 (BC28) negative E-Cad (ECH-6) positive MOC-31 (4561) negative MORPHOMETRIC ANALYSIS ER (clone 6F11) >95, strong intensity WA (clone 16/1E2) 0% Her-2Neu (clone CB11) 2+ The test for HER 2 is performed on formalin-fixed paraffin embedded tissue using the CB11 mouse monoclonal antibody ([employer]). A 3+ staining pattern is interpreted as positive and is defined as a strong membranous staining involving the entire cell membrane in over 30% of invasive tumor cells. A similar weak staining pattern (2+) involving 10% of the tumor cells is interpreted as equivocal. HER 2 follow-up testing by FISH is recommended for all equivocal results. Reference: [place] Society of Clinical Oncology and the College of [place] [employer] (J. Clin. Oncol. 23: 118-145, 2007). Fixative Used: Formalin; Duration of Fixation: 28 Hours.; Sample Adequate: Yes Patient Age/Sex Location Account Attending Physician ESTRADA MURO 83/F [facility] [id number] Dr. 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 Positive for estrogen receptors (favorable prognostic indicator). Negative for progesterone receptors (favorable prognostic indicator). Equivocal for overexpression of RBS3dex. 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 Positive for estrogen receptors (favorable prognostic indicator). Negative for progesterone receptors (favorable prognostic indicator). Negative for overexpression of SIX1bki. AM/mr 03/06/2024 IN SITU HYBRIDIZATION (ROSINA) FOR HER2 Interpretation: Not Amplified / Negative HER2 : CEP-17 Ratio: 1.1 Average HER2 Signal: 1.9 Average CEP-17 Signal: 1.1 Number of Tumor Cells Scanned: 50 Interpretative Information: The INFORM HER2 Dual ROSINA DNA Probe Cocktail assay is performed on formalin-fixed paraffin embedded tissue and determines HER2 gene status by detecting HER2 copies via silver in situ hybridization (SISH) and Chromosome 17 copies via chromogenic red in situ hybridization on tumor cells. A minimum of 20 cells representing > 10% of contiguous and homogeneous invasive tumor cells were analyzed. HER2 gene status is classified as Non-amplified (HER2/Chr17 ratio < 2.0) or Amplified (HER2/Chr17 ratio greater than or equal to 2.0). If the resulting HER2/Chr17 ratio falls within 1.8 - 2.2 (Borderline), retesting by FISH is recommended. Reference: Loretta AC, Bobby CEDEÑOH, Jayjay DG, et al: Recommendations for Human Epidermal Growth Factor Receptor 2 Testing in Breast Cancer: [place] Society of Clinical Oncology / College of [place] [employer] Clinical Practice Guideline Update. J Clin Oncol 31:9125-3458, 2013. Patient Age/Sex Location Account Attending Physician ESTRADA MURO 83/F [facility] [id number] Dr. Miguel Mariee MD --- (more content not included)... Normal [facility] Comment on above: Performed By: #### P ER #### [facility] [place], [address] Surgery Specimen Level Genet 02-29-2024 Surgery Specimen Level IV Patient Age/Sex Location Account Attending Physician ESTRADA MURO 83/F [facility] [id number] Dr. Miguel Mariee MD Specimen: [id number] Received: 02/29/24 Status: YFN [place] Num: [id number] Spec Type: BREAST BX Subm Dr: Dr. Miguel Mariee MD HEADER OPERATION: Ultrasound guided left breast biopsy PRE-OP DIAGNOSIS: Abnormal mammogram TISSUE SUBMITTED: Left breast biopsy Ischemic Time: 1 minute Fixation Time: 28 hours MICROSCOPIC DIAGNOSIS Left breast, core biopsy: Invasive ductal carcinoma. See synoptic report below. AM/mr 03/02/2024 COMMENT INVASIVE BREAST CANCER SUMMARY: Procedure: Needle core biopsy Specimen Laterality: Left breast Tumor site: Left breast Histologic type: Invasive ductal carcinoma Provisional Histologic grade: 2 Tubule Differentiation Score:2 Nuclear Pleomorphism Score: 2 Mitotic Rate Score: 1 Tumor Size ( greatest dimension): 8.5mm Ductal Carcinoma In situ: Not identified Angiolymphatic Invasion: Not identified Microcalcifications: Focally present Additional Findings: None Breast Marker Study: [id number] ER: >95% WA: 0% Her2: 2+ (equivocal) Ki67:5% The above summary is in compliance with [employer] [place] [employer] (CAP) Cancer Protocols Checklist and [place] Joint Committee on Cancer (AJCC), Staging Manual, 8th Ed. Case has been reviewed in consultation with Dr. Carrillo who concurs with the above diagnosis. IDC:JORGE Patient Age/Sex Location Account Attending Physician ESTRADA MURO 83/F [facility] [id number] Dr. Miguel Mariee MD MICROSCOPIC DESCRIPTION Slides are reviewed. GROSS DESCRIPTION Received in fixative is one container labeled with the patient's name and designated Left breast tissue. The specimen consists of multiple elongated fragments of rosenthal-yellow fibroadipose tissue measuring in aggregate 1.5 x 0.5 x 0.1cm. The entire specimen is submitted in one cassette. JORGE/ 03/01/2024 TC:0 CPT:00105 Patient Age/Sex Location Account Attending Physician ESTRADA MURO 83/F [facility] [id number] Dr. Miguel Mariee MD Signed (signature on file) Dr. Levi Rose DO 03/05/24 1212 Normal [facility] Comment on above: Performed By: #### P SUIV ####[facility] [address] [place], [place], [address] Surgery Visit Reporton 02-28 Surgery Visit Report [facility] [address] [place] [address] OFFICE VISIT Date of Service: 02/29/24 MR#: [id number] Acct: [id number] Name: ESTRADA MURO Rep #: [id number] : 1940 Provider: Dr. Miguel chatterjee MD Age/Sex: 83/F Location: [facility] Status: Signed Intake Vital Signs 02/22/24 10:23 Height 5 ft 7 in Weight: 122 lb BMI 19.1 BP 170/90 H Blood Pressure Location Rt brachial Position Sitting Respiration 18 Pulse 71 Pulse Source Monitor Temp 97.2 F L Temp Source Temporal Pulse Oximetry (%) 97 Oxygen Delivery Method room air Intake Visit Reasons: BREAST BX Chief Complaint: birads 4/breast biopsy Is patient in pain?: No Allergies No Known Allergies Allergy (Verified 02/29/24 14:38) Medications ???Medication ???Instructions ???Recorded ???Confirmed ???Type levothyroxine 75 mcg tablet mcg PO 02/22/24 02/29/24 History (Synthroid) levothyroxine 88 mcg tablet mcg PO 02/22/24 02/29/24 History (Synthroid) memantine 14 mg capsule 14 mg PO QDAY 02/22/24 02/29/24 History sprinkle,extended release 24hr Have you fallen in the past year?: No (None disclosed) [facility] Medical History Anxiety Depression Non-smoker Migraines Thyroid cancer Sciatica Arthritis Environmental allergies Hypothyroid HTN (hypertension) Enteritis Surgical History H/O thyroidectomy History of facial surgery s/p pelvic floor reconstruction S/P hysterectomy Social History household members: spouse Smoking Status: Never smoker alcohol intake: never substance use type: does not use HPI HPI HPI: Patient is an 83-year-old female who presents for an abnormal screening mammographic finding and had made her initial consultation visit 02/22/2024. However, at that visit she had not completed a reflex ultrasound and was able to have this study completed in the interim on 02/24/2024. This confirmed the presence of a 1.2 cm hypoechoic area 5 cm from the nipple along the 12 o'clock position. Patient presents to today's visit with her sister. Below is recapitulated from patient's initial consultation visit for ease of review: Patient is a 83-year-old female who presents for abnormal screening mammogram finding. She presents today with her . They are referred from Dr. Loyola. Based on mammographic imaging criteria this was given a BI-RADS 4. Interestingly no reflex ultrasound was performed. Patient has a history of dementia and so much of her history is gleaned from her . Patient has no prior history of breast pathology. She thus has no history of prior breast biopsy. She underwent menarche at the age of 15. She has had 1 pregnancies and 1 live births. Patient has no first- degree relatives with breast cancer. There is no tenderness with the present finding. There is no nipple discharge associated with this finding. The patient is no history of hormone replacement therapy. There is no history of trauma/infection to the affected breast. ROS General General: No weight change, appetite, fatigue, colon cancer, breast cancer or weakness HEENT HEENT: No difficulty swallowing, eye injury, eye surgery, swollen glands or hoarseness Endo Endocrine: Yes thyroid disease; No diabetes mellitus, thyroid cancer, Hair loss, heat intolerance or cold intolerance Skin Skin: No rash or changing moles Breast Breast: Yes abnormal mammogram; No left breast lump, right breast lump, nipple discharge, breast pain, abnormal US or breast enlargement Musc Musculoskeletal: Yes arthritis; No back problems, rheumatoid arthritis, gout or joint pain Cardio Cardiovascular: No murmur, pacemaker, heart disease, atrial fibrillation, high blood pressure, heart attack, heart stent, palpitations, shortness of breat with exertion or chest pain Psych Psychiatric: No depression, anxiety or hearing voices Resp Respiratory: No shortness of breath, No sleep apnea, No cough, No COPD, No asthma, No emphysema and No wheezing Gastro Gastrointestinal: No abdominal pain, No nausea or vomiting, No diarrhea, No constipation, No blood in stool, No acid reflux, No hemorrhoids, No ulcers, No gallbladder problem and No black,tarry stools Damaso Hematologic: No blood thinners, No blood disorders, No bleeding, No anemia and No blood clots Neuro Neurologic: No numbness, No tingling and No weakness Exam Const General: cooperative, comfortable and no acute distress Orientation: confused (But able to restate procedure once given) Chest Other: Firm mass palpable 5 cm from the nipple more along the 1 o'clock position from the nipple. Office (more content not included)... Normal [facility] Breast Limited Unilateralon 02-24-2024 Breast Limited Unilateral [facility] Imaging Services [address], [place] [id number] Breast Limited Unilateral MR#: [id number] Acct: [id number] Name: ESTRADA MURO Rep #: [id number] : 1940 F 83 From: Yang fuchs MD PCP: Dr. Antonella Loyola, Status: [facility] Study: Breast Limited Unilateral Date of Exam: Exam# [id number] Ordering Dr: Miguel Mariee MD [id number] STUDY: ULTRASOUND BREAST - LEFT REASON FOR EXAM: Female, 83 years old. Abnormal screening mammogram. TECHNIQUE: Axial and longitudinal images of the LEFT breast were performed with a high resolution ultrasound transducer. # OF IMAGES: 11 COMPARISON: Comparison is made with prior mammogram dated February 15, 2024. FINDINGS: LEFT Breast: The mammographic abnormality corresponds to 1.1 cm x 1 cm x 1.2 cm hypoechoic irregular mass at the 12:00 position of the breast at 5 cm from the nipple. Biopsy recommended. US/Breast Limited Unilateral IMPRESSION: The mammographic abnormality corresponds to 1.1 cm x 1 cm x 1.2 cm hypoechoic irregular mass at the 12:00 position of the breast at 5 cm from nipple. Biopsy recommended. ASSESSMENT CATEGORY: BIRADS Category 5: Highly Suggestive of Malignancy - Appropriate Action Should Be Taken. A letter regarding these results will be sent to the patient by the facility within 30 days. Electronically Signed: Yang Bolden MD at 14:53 EDT Reading Location ID and State: [facility] / [place] , Service support , CC: Dr. Antonella Loyola DO; Dr. Miguel Mariee MD Shake Splitter: Signed Normal [facility] Surgery Visit Reporton 02-21 Surgery Visit Report [facility] [address] [place] [address]. [address] [place] [address] OFFICE VISIT Date of Service: 02/22/24 MR#: [id number] Acct: [id number] Name: ESTRADA MURO Rep #: [id number] : 1940 Provider: Dr. Miguel chatterjee MD Age/Sex: 83/F Location: [facility] Status: Signed Intake Vital Signs 07/04/23 17:35 02/22/24 10:23 Height 5 ft 10 in 5 ft 7 in Weight: 122 lb BMI 19.1 BP 170/90 H Blood Pressure Location Rt brachial Position Sitting Respiration 18 Pulse 71 Pulse Source Monitor Temp 97.2 F L Temp Source Temporal Pulse Oximetry (%) 97 Oxygen Delivery Method room air Intake Visit Reasons: BIRADS 4 - MAMMO ONLY Chief Complaint: BIRADS 4- MAMMO ONLY Is patient in pain?: No Allergies No Known Allergies Allergy (Verified 02/22/24 10:24) Medications ???Medication ???Instructions ???Recorded ???Confirmed ???Type levothyroxine 75 mcg tablet mcg PO 02/22/24 02/22/24 History (Synthroid) levothyroxine 88 mcg tablet mcg PO 02/22/24 02/22/24 History (Synthroid) memantine 14 mg capsule 14 mg PO QDAY 02/22/24 02/22/24 History sprinkle,extended release 24hr Have you fallen in the past year?: No PFSH Medical History Anxiety Arthritis Depression Enteritis Environmental allergies HTN (hypertension) Hypothyroid Migraines Non-smoker Sciatica Thyroid cancer Surgical History H/O thyroidectomy History of facial surgery s/p pelvic floor reconstruction S/P hysterectomy Social History household members: spouse Smoking Status: Never smoker alcohol intake: never substance use type: does not use HPI HPI HPI: Patient is a 83-year-old female who presents for abnormal screening mammogram finding. She presents today with her . They are referred from Dr. Loyola. Based on mammographic imaging criteria this was given a BI-RADS 4. Interestingly no reflex ultrasound was performed. Patient has a history of dementia and so much of her history is gleaned from her . Patient has no prior history of breast pathology. She thus has no history of prior breast biopsy. She underwent menarche at the age of 15. She has had 1 pregnancies and 1 live births. Patient has no first- degree relatives with breast cancer. There is no tenderness with the present finding. There is no nipple discharge associated with this finding. The patient is no history of hormone replacement therapy. There is no history of trauma/infection to the affected breast. ROS General General: No weight change, appetite, fatigue, colon cancer, breast cancer or weakness HEENT HEENT: No difficulty swallowing, eye injury, eye surgery, swollen glands or hoarseness Endo Endocrine: Yes thyroid disease; No diabetes mellitus, thyroid cancer, Hair loss, heat intolerance or cold intolerance Skin Skin: No rash or changing moles Breast Breast: Yes abnormal mammogram; No left breast lump, right breast lump, nipple discharge, breast pain, abnormal US or breast enlargement Musc Musculoskeletal: Yes arthritis; No back problems, rheumatoid arthritis, gout or joint pain Cardio Cardiovascular: No murmur, pacemaker, heart disease, atrial fibrillation, high blood pressure, heart attack, heart stent, palpitations, shortness of breat with exertion or chest pain Psych Psychiatric: No depression, anxiety or hearing voices Resp Respiratory: No shortness of breath, No sleep apnea, No cough, No COPD, No asthma, No emphysema and No wheezing Gastro Gastrointestinal: No abdominal pain, No nausea or vomiting, No diarrhea, No constipation, No blood in stool, No acid reflux, No hemorrhoids, No ulcers, No gallbladder problem and No black,tarry stools Damaso Hematologic: No blood thinners, No blood disorders, No bleeding, No anemia and No blood clots Neuro Neurologic: No numbness, No tingling and No weakness Exam Const General: cooperative Orientation: alert, oriented to person and oriented to place Chest Other: There is largely symmetry present in patient's smaller than average breasts. On the right there is a scar above the right breast roughly in the position of the prior port as well as a curvilinear incision approximately 8 cm from the areola. Neither patient nor her are able to recall origin of the scars that are now well-healed. Additionally, 2 cm along the 5 o'clock position from the areola there is some firm breast tissue that is mildly tender to palpation. Then at the 10 o'clock position directly adjacent to the areolar border there is some additional firm breast tissue that is tender to palpation. Lastly at the 10 o'clock posit (more content not included)... Normal [facility] Dexa Bone Density Studyon Dexa Bone Density Study [facility] Imaging Services [address] [place] [address] Dexa Bone Density Study MR#: [id number] Acct: [id number] Name: ESTRADA MURO Rep #: [id number] : 1940 F 83 From: Yang fuchs MD PCP: Dr. Antonella Loyola DO Status: REG CLI Study: Dexa Bone Density Study Date of Exam: 02/15/24 Exam# [id number] Ordering Dr: Antonella Loyola DO [id number] STUDY: DUAL ENERGY X-RAY ABSORPTIOMETRY / DXA REASON FOR EXAM: Female, 83 years old. M810 TECHNIQUE: Bone Mineral Density (BMD) measurements of lumbar spine and bilateral hips were obtained. COMPARISON: Comparison is made with prior study dated August 12, 2015. FINDINGS: Lumbar Spine (L1-L4): g/cm2 (0.769) / T-score (-2.3) / Z-score (0.4) Findings are suggestive of osteopenia with a high fracture risk. Left Femur Total: g/cm2 (0.626) / T-score (-2.6) / Z-score (-0.5) Left Femoral Neck: g/cm2 (0.571) / T-score (-2.5) / Z-score (-0.1) Right Femur Total: g/cm2 (0.632) / T-score (-2.5) / Z-score (-0.4) Right Femoral Neck: g/cm2 (0.564) / T-score (-2.6) / Z-score (-0.2) The T-Scores on the most recent prior examination were: Lumbar Spine (L1-L4): There has been worsening of bone density since the previous examination. Left Femur Total: which represents a worsening of 8.2%. Right Femur Total: which represents a worsening of 6.1%. BD/Dexa Bone Density Study IMPRESSION: The patient is considered osteoporotic as outlined below according to World Rodriguez Organization (WHO) criteria with a high fracture risk. There has been worsening of bone density since the previous examination. Reference Information: The T-score is the number of standard deviations above or below the standard which is normal for young adults at their peak bone mineral density. The World Health Organization (WHO) interprets the T-scores as follows: Above -1 Normal bone density Between -1 and -2.5 Osteopenia Equal to / or below -2.5 Osteoporosis As a practical clinical guideline, osteopenia may be graded as follows: Mild -1 through -1.5 Moderate -1.6 through -2.0 Severe -2.1 through -2.4 The Z-score is the number of standard deviations above or below age-matched controls. A Z-score of less than -1.5 would be considered abnormal. References: 1. NIH Osteoporosis and Related Bone Diseases www osteo.org 2. International Society for Clinical Densitometry www iscd.org 3. National Osteoporosis Foundation www nof.org Electronically Signed: Yang Bolden MD at 10:06 EDT , CC: Dr. Antonella Loyola DO Shake Splitter: Signed Normal [facility] SCRN MAMM (CAD)W/DESIRAE BILATo n 02-15-2024 SCRN MAMM (CAD)W/DESIRAE BILAT [facility] Imaging Services [address], [place] [address] SCRN MAMM (CAD)W/DESIRAE BILAT MR#: [id number] Acct: [id number] Name: ESTRADA MURO Rep #: [id number] : 1940 F 83 From: Yang fuchs MD PCP: Dr. Antonella Loyola DO Status: [facility] Study: SCRN MAMM (CAD)W/DESIRAE BILAT Date of Exam: 01/23 11/15 Exam# [id number] Ordering Dr: Antonella Loyola DO ADDENDUM by Dr. Yang Bolden MD on 02/16/24 at 0939 == ADDENDUM == [id number] This is an addendum report. Additional images were submitted. There is a 1.1 cm x 0.8 cm spiculated nodule in the upper central portion of the left breast. Biopsy suggested. BI-RADS category: 4 Electronically Signed: Yang Bolden MD at 9:39 EDT , 02/16/24 0939 Date cc: Dr. Antonella Loyola, DO * Signed ADDENDUM by Dr. Yang Bolden MD on 02/16/24 at 0939 BI/SCRN MAMM (CAD)W/DESIRAE BILAT IMPRESSION: undefined 02/16/24 0946 Date cc: Dr. Antonella Loyola, DO * Signed [id number] MAMMOGRAPHY - BILATERAL SCREENING REASON FOR EXAM: Female, 83 years old. Routine annual screening examination. PERTINENT HISTORY: Non-contributory. TECHNIQUE: Digital bilateral breast desirae (3D mammographic acquisition) in the CC and MLO projections. 2-D mediolateral oblique (MLO) and craniocaudad (CC) views of both breasts were obtained. CAD: Full Field Digital Mammography with Computer Added Detection was performed. COMPARISON: Comparison is made with prior study October 31, 2017 and October 22, 2015. FINDINGS: Breast Composition: The breasts are heterogeneously dense, which may obscure small masses. There are no dominant masses or suspicious calcifications. No other significant abnormalities are identified. There has been no significant change since the prior study. BI/SCRN MAMM (CAD)W/DESIRAE BILAT IMPRESSION: Stable bilateral screening mammogram. Yearly follow-up mammogram recommended. (A) ASSESSMENT CATEGORY: BIRADS Category 1: Negative. A letter regarding these results will be sent to the patient by the facility within 30 days. Approximately 10% of breast cancers are not detected by mammography. A normal mammogram should not delay biopsy of a clinically suspicious abnormality. [id number] Electronically Signed: Yang Bolden MD at 15:27 EDT Reading Location ID and State: [address] [place] [address] , Service support , CC: Dr. Antonella Loyola, Shake Splitter: Signed Normal [facility] CBC W/Diff, Automatedon 12-23 Absolute Lymph 1.67 X10 3/uL Normal 0.83-4.51 [facility] Comment on above: Performed By: #### L 501.9520, L500.4050, L100.0100, L500.4100, L501.26256, L506.0400 #### [facility] [address] [place], [place], [address] Absolute Neut 3.7 X10 3/uL Normal 2.0-7.7 [facility] Comment on above: Performed By: #### L 501.9520, L500.4050, L100.0100, L500.4100, L501.59340, L506.0400 #### [facility] [address] [place], [address] Basophils/100 WBC (Bld) 0.7 % Normal 0-1 [facility] Comment on above: Performed By: #### L 501.9520, L500.4050, L100.0100, L500.4100, L501.98815, L506.0400 #### [facility] [address] [place], [address] Eosinophils/100 WBC (Bld) 1.7 % Normal 0-5 [facility] Comment on above: Performed By: #### L 501.9520, L500.4050, L100.0100, L500.4100, L501.96899, L506.0400 #### [facility] [address] [place], [address] Erythrocyte distribution width (RBC) [Ratio] 13.2 % Normal 11.6-14.6 [facility] Comment on above: Performed By: #### L 501.9520, L500.4050, L100.0100, L500.4100, L501.03087, L506.0400 #### [facility] [address] [place], [address] Hematocrit (Bld) [Volume fraction] 36.7 % Low 37-47 [facility] Comment on above: Performed By: #### L 501.9520, L500.4050, L100.0100, L500.4100, L501.38786, L506.0400 #### [facility] [address] [place], [address] Hemoglobin (Bld) [Mass/Vol] 11.5 g/dL Low 12.0-15.0 [facility] Comment on above: Performed By: #### L 501.9520, L500.4050, L100.0100, L500.4100, L501.19147, L506.0400 #### [facility] [address] [place], [address] IG% 0.200 Normal 0.0-0.9 [facility] Comment on above: Result Comment: IG% - Immature Granulocytes (promyelocytes, myelocytes and metamyelocytes) > 1% indicates that a LEFT SHIFT is Present. Performed By: #### L 501.9520, L500.4050, L100.0100, L500.4100, L501.43620, L506.0400 #### [facility] [address] [place], [address] Lymphocytes/100 WBC (Bld) 27.7 % Normal 19-41 [facility] Comment on above: Performed By: #### L 501.9520, L500.4050, L100.0100, L500.4100, L501.80492, L506.0400 #### [facility] [address] [place], [address] MCH (RBC) [Entitic mass] 31.6 pg Normal 27.0-32.0 [facility] Comment on above: Performed By: #### L 501.9520, L500.4050, L100.0100, L500.4100, L501.60940, L506.0400 #### [facility] [address] [place], [address] MCHC (RBC) [Mass/Vol] 31.3 g/dL Low 32-36 [facility] Comment on above: Performed By: #### L 501.9520, L500.4050, L100.0100, L500.4100, L501.48228, L506.0400 #### [facility] [address] [facility] [place], [address] MCV (RBC) [Entitic vol] 100.8 fL High 81-99 [facility] Comment on above: Performed By: #### L 501.9520, L500.4050, L100.0100, L500.4100, L501.12139, L506.0400 #### [facility] [address] [place], [address] Monocytes/100 WBC (Bld) 7.8 % Normal 0-10 [facility] Comment on above: Performed By: #### L 501.9520, L500.4050, L100.0100, L500.4100, L501.23941, L506.0400 #### [facility] [address] [place], [address] Neutrophils/100 WBC (Bld) 61.9 % Normal 47-70 [facility] Comment on above: Performed By: #### L 501.9520, L500.4050, L100.0100, L500.4100, L501.73408, L506.0400 #### [facility] [address] [place], [address] Nucleated RBC (Bld) [#/Vol] 0 10*3/uL Normal 0-5 [facility] Comment on above: Performed By: #### L 501.9520, L500.4050, L100.0100, L500.4100, L501.04991, L506.0400 #### [facility] [address] [place], [address] Platelet mean volume (Bld) [Entitic vol] 12.6 fL High 6.2-12.0 [facility] Comment on above: Performed By: #### L 501.9520, L500.4050, L100.0100, L500.4100, L501.72581, L506.0400 #### [facility] [address] [place], [address] Platelets (Bld) [#/Vol] 172 10*3/uL Normal 150-450 [facility] Comment on above: Performed By: #### L 501.9520, L500.4050, L100.0100, L500.4100, L501.11937, L506.0400 #### [facility] [address] [place], [address] RBC (Bld) [#/Vol] 3.64 10*6/uL Low 4.2-5.4 [facility] Comment on above: Performed By: #### L 501.9520, L500.4050, L100.0100, L500.4100, L501.94341, L506.0400 #### [facility] [address] [place], [address] RDW SD 48.9 fl High 35.1-43.9 [facility] Comment on above: Performed By: #### L 501.9520, L500.4050, L100.0100, L500.4100, L501.66459, L506.0400 #### [facility] [address] [place], [address] WBC (Bld) [#/Vol] 6.0 10*3/uL Normal 4.4-11.0 [facility] Comment on above: Performed By: #### L 501.9520, L500.4050, L100.0100, L500.4100, L501.74826, L506.0400 #### [facility] [address] [place], [address] Comprehensive Metabolic [facility] 01-09-2024 Albumin [Mass/Vol] 3.6 g/dL Normal 3.2-5.0 [facility] Comment on above: Performed By: #### L 501.9520, L500.4050, L100.0100, L500.4100, L501.53059, L506.0400 ####[facility] [address] [place], [address] Albumin/Globulin [Mass ratio] 1.1 {ratio} Normal 0.9-2.4 [facility] Comment on above: Performed By: #### L 501.9520, L500.4050, L100.0100, L500.4100, L501.03165, L506.0400 ####[facility] [address] [place], [address] ALK P 49 U/L Normal 45-117 [facility] Comment on above: Performed By: #### L 501.9520, L500.4050, L100.0100, L500.4100, L501.15323, L506.0400 ####[facility] [address] [place], [address] ALT [Catalytic activity/Vol] 15 U/L Normal 13-56 [facility] Comment on above: Performed By: #### L 501.9520, L500.4050, L100.0100, L500.4100, L501.66574, L506.0400 ####[facility] [address] [place], [address] AST [Catalytic activity/Vol] 18 U/L Normal 15-37 [facility] Comment on above: Performed By: #### L 501.9520, L500.4050, L100.0100, L500.4100, L501.14437, L506.0400 ####[facility] [address] [place], [address] Bilirubin [Mass/Vol] 0.50 mg/dL Normal 0.20-1.00 [facility] Comment on above: Result Comment: For patients on eltrombopag therapy, use of Dimension [place] TBIL is not recommended. Performed By: #### L 501.9520, L500.4050, L100.0100, L500.4100, L501.98235, L506.0400 ####[facility] [address] [place], [address] BUN/CRE 23.1 RATIO High 10-20 [facility] Comment on above: Performed By: #### L 501.9520, L500.4050, L100.0100, L500.4100, L501.08332, L506.0400 ####[facility] [address] [place], [address] CA,Total 9.1 mg/dL Normal 8.5-10.1 [facility] Comment on above: Performed By: #### L 501.9520, L500.4050, L100.0100, L500.4100, L501.85097, L506.0400 ####[facility] [address] [place], [address] Chloride [Moles/Vol] 108 mmol/L High 98-107 [facility] Comment on above: Performed By: #### L 501.9520, L500.4050, L100.0100, L500.4100, L501.42485, L506.0400 ####[facility] [address] [place], [address] CO2 [Moles/Vol] 30.0 mmol/L Normal 21.0-32.0 [facility] Comment on above: Performed By: #### L 501.9520, L500.4050, L100.0100, L500.4100, L501.04638, L506.0400 ####[facility] [address] [place], [address] Creatinine [Mass/Vol] 1.04 mg/dL High 0.55-1.02 [facility] Comment on above: Result Comment: The validity of the calculated GFR GFRAA in patients over 70 years has not been determined. Clinical correlation is essential. Performed By: #### L 501.9520, L500.4050, L100.0100, L500.4100, L501.79465, L506.0400 ####[facility] [address] [place], [address] EST GFR - AA 65 mL/min Normal >60 [facility] Comment on above: Result Comment: Afri can Argentine GFR Calc Performed By: #### L 501.9520, L500.4050, L100.0100, L500.4100, L501.47820, L506.0400 ####[facility] [address] [place], [address] GAP 4 Low 5-15 [facility] Comment on above: Performed By: #### L 501.9520, L500.4050, L100.0100, L500.4100, L501.44775, L506.0400 ####[facility] [address] [place], [address] GFR/1.73 sq M.predicted among non-blacks MDRD (S/P/Bld) [Vol rate/Area] 54 mL/min/{1.73_m2} Low >60 [facility] Comment on above: Result Comment: Non- GFR Calc Performed By: #### L 501.9520, L500.4050, L100.0100, L500.4100, L501.96920, L506.0400 ####[facility] [address] [place], [address] Globulin (S) [Mass/Vol] 3.2 g/dL Normal 2.2-4.2 [facility] Comment on above: Performed By: #### L 501.9520, L500.4050, L100.0100, L500.4100, L501.99649, L506.0400 ####[facility] [address] [place], [address] Glucose [Mass/Vol] 57 mg/dL Low 74-106 [facility] Comment on above: Performed By: #### L 501.9520, L500.4050, L100.0100, L500.4100, L501.13187, L506.0400 ####[facility] [address] [place], [address] Potassium [Moles/Vol] 3.8 mmol/L Normal 3.5-5.1 [facility] Comment on above: Performed By: #### L 501.9520, L500.4050, L100.0100, L500.4100, L501.98117, L506.0400 ####[facility] [address] [place], [address] Sodium [Moles/Vol] 142 mmol/L Normal 136-145 [facility] Comment on above: Performed By: #### L 501.9520, L500.4050, L100.0100, L500.4100, L501.80505, L506.0400 ####[facility] [address] [place], [address] T PROT 6.8 g/dL Normal 6.4-8.2 [facility] Comment on above: Performed By: #### L 501.9520, L500.4050, L100.0100, L500.4100, L501.41940, L506.0400 ####[facility] [address] [place], [address] Urea nitrogen [Mass/Vol] 24 mg/dL High 7-18 [facility] Comment on above: Performed By: #### L 501.9520, L500.4050, L100.0100, L500.4100, L501.70632, L506.0400 ####[facility] [address] [place], [address] Free T3on 01-09-2024 Free T3 [Mass/Vol] 2.3 pg/mL Normal 2.18-3.98 [facility] Comment on above: Performed By: #### L 501.9520, L500.4050, L100.0100, L500.4100, L501.56840, L506.0400 ####[facility] [address] [place], [address] Lipid Profileon 01-09-2024 Cholesterol [Mass/Vol] 195 mg/dL Normal 200 [facility] Comment on above: Result Comment: <200 mg/dL Desirable 200-240 mg/dL Borderline >240 mg/dL High Risk Performed By: #### L 501.9520, L500.4050, L100.0100, L500.4100, L501.33717, L506.0400 ####[facility] [address] [place], [address] Cholesterol in HDL [Mass/Vol] 69 mg/dL Normal [facility] Comment on above: Result Comment: The drugs N-Acetylcysteine and Metamizole may falsely depress this assay. Reference Range HDL <40 mg/dL Low HDL Cholesterol HDL >or= 60 mg/dL High HDL Cholesterol Performed By: #### L 501.9520, L500.4050, L100.0100, L500.4100, L501.43350, L506.0400 ####[facility] [address] [place], [address] Cholesterol in LDL [Mass/Vol] 107 mg/dL Normal 0-130 [facility] Comment on above: Performed By: #### L 501.9520, L500.4050, L100.0100, L500.4100, L501.68394, L506.0400 ####[facility] [address] [place], [address] Cholesterol in VLDL [Mass/Vol] 19 mg/dL Normal 5-40 [facility] Comment on above: Performed By: #### L 501.9520, L500.4050, L100.0100, L500.4100, L501.07331, L506.0400 ####[facility] [address] [place], [address] Triglyceride [Mass/Vol] 93 mg/dL Normal [facility] Comment on above: Result Comment: The drugs N-Acetylcysteine and Metamizole may falsely depress this assay. Serum Triglycerides Reference Interval Normal <150 mg/dL Borderline high 150 - 199 mg/dL High 200 - 499 mg/dL Very High > or = 500 mg/dL Performed By: #### L [id number], [id number], L100.0100, L500.4100, [id number], L506.0400 ####[facility] [id number] [place], [address] T4 Free Directon 01-09-2024 T4 FREE DIRECT 1.21 ng/dL Normal 0.76-1.46 [facility] Comment on above: Performed By: #### L [id number], [id number], L100.0100, L500.4100, [id number], L506.0400 ####[facility] [id number] [place], [address] Thyroid Stim Hormone (TSH)on 01-09-2024 TSH 0.46 uIU/mL Normal 0.358-3.74 [facility] Comment on above: Performed By: #### L [id number], [id number], L100.0100, L500.4100, [id number], L506.0400 ####[facility] [id number] [place], [address] Absolute lymphocyte countOrd ered By: Al Bassett on 07-04-2023 Lymphocytes Auto (Unsp spec) [#/Vol] 0.58 10*3/uL 0.83-4.51 [facility] Basophil percentageOrdered B y: Al Bassett on 07-04-2023 Basophils/100 WBC (Bld) 0.5 % 0-1 [facility] Chloride [Moles/Vol] 103 mmol/L 98-107 [facility] Eosinophils/100 WBC (Bld) 0.2 % 0-5 [facility] Glucose [Mass/Vol] 124 mg/dL 74-106 [facility] Comment on above: Fasting Glucose resu lt from 100 to 125 mg/dL suggests IMPAIRED HOMEOSTASIS per A.D.A. criteria. Neutrophils (Bld) [#/Vol] 7.4 10*3/uL 2.0-7.7 [facility] Neutrophils/100 WBC (Bld) 84.9 % 47-70 [facility] Potassium [Moles/Vol] 3.5 mmol/L 3.5-5.1 [facility] Sodium [Moles/Vol] 137 mmol/L 136-145 [facility] WBC (Bld) [#/Vol] 8.7 10*3/uL 4.4-11.0 [facility] Blood erythrocytes count (nu mber/volume)Ordered By: Al Bassett on 07-04-2023 RBC (Bld) [#/Vol] 3.81 10*6/uL 4.2-5.4 [facility] Blood hemoglobin measurement (mass/volume)Ordered By: Al Bassett on 07-04-2023 Hemoglobin (Bld) [Mass/Vol] 12.0 g/dL 12.0-15.0 [facility] Blood lymphocytes/100 leukoc ytesOrdered By: Al Bassett on 07-04-2023 Lymphocytes/100 WBC (Bld) 6.7 % 19-41 [facility] Blood manual differential co mment interpretation (narrative result)Ordered By: Al Bassett on 07-04-2023 Manual differential comment Jason (Bld) [Interp] SCANNED [facility] Blood monocytes/100 leukocyt esOrdered By: Al Bassett on 07-04-2023 Monocytes/100 WBC (Bld) 7.2 % 0-10 [facility] Blood platelet mean volumeOr dered By: Al Bassett on 07-04-2023 Platelet mean volume (Bld) [Entitic vol] 12.4 fL 6.2-12.0 [facility] Determination of erythrocyte mean corpuscular volume (MCV)Ordered By: Al Bassett on 07-04-2023 MCV (RBC) [Entitic vol] 98.7 fL 81-99 [facility] Erythrocyte sedimentation ra teOrdered By: Alangelia Bassett on 07-04-2023 ESR (Bld) [Velocity] 19 mm/h 0-30 [facility] Hematocrit Auto (Bld) [Volum e fraction]Ordered By: Alangelia Bassett on 07-04-2023 Hematocrit (Bld) [Volume fraction] 37.6 % 37-47 [facility] Laboratory - Chemistry and C hemistry - challengeOrdered By: Alangelia Bassett on 07-04-2023 CO2 [Moles/Vol] 28.0 mmol/L 21.0-32.0 [facility] Urea nitrogen/Creatinine [Mass ratio] 21.5 mg/mg 10-20 [facility] Laboratory - Hematology and Cell countsOrdered By: Alangelia Bassett on 07-04-2023 Erythrocyte distribution width (RBC) [Entitic vol] 49.3 fL 35.1-43.9 [facility] Erythrocyte distribution width (RBC) [Ratio] 13.5 % 11.6-14.6 [facility] Immature granulocytes/100 WBC (Bld) 0.500 % 0.0-0.9 [facility] Comment on above: IG% - Immature Granu locytes (promyelocytes, myelocytes and metamyelocytes) > 1% indicates that a LEFT SHIFT is Present. MCH (RBC) [Entitic mass] 31.5 pg 27.0-32.0 [facility] Nucleated RBC/100 WBC (Bld) [Ratio] 0 % 0-5 [facility] MCHC Auto (RBC) [Mass/Vol]Or dered By: Al Bassett on 07-04-2023 MCHC (RBC) [Mass/Vol] 31.9 g/dL 32-36 [facility] No Panel InformationOrdered By: Alangelia Bassett on 07-04-2023 Estimated Creatinine Clearance Calc 44.19 ml/min [facility] Estimated GFR (MDRD) Amer 79 mL/min >60 [facility] Comment on above: GFR Calc Estimated GFR (MDRD) Non-Af Amer 65 mL/min >60 [facility] Comment on above: Non- GFR Calc Platelets bldOrdered By: Alangelia Bassett on 07-04-2023 Platelets (Bld) [#/Vol] 163 10*3/uL 150-450 [facility] Serum or plasma calcium enrrique urement (mass/volume)Ordered By: Alangelia Bassett on 07-04-2023 Calcium [Mass/Vol] 8.8 mg/dL 8.5-10.1 [facility] Serum or plasma creatinine m easurement (mass/volume)Ordered By: Al Bassett on 07-04-2023 Creatinine [Mass/Vol] 0.88 mg/dL 0.55-1.02 [facility] Comment on above: The validity of the calculated GFR & GFRAA in patients over 70 years has not been determined. Clinical correlation is essential. Serum or plasma urea nitroge n measurement (mass/volume)Ordered By: [facility] on 07-04-2023 Urea nitrogen [Mass/Vol] 19 mg/dL 7-18 [facility] Thin prep Papanicolaou smear with manual screeningOrdered By: Al [facility] on 07-04-2023 Thin prep Papanicolaou smear with manual screening 6 5-15 [facility] Absolute lymphocyte countOrd ered By: Antonella Loyola on 01-19-2023 Lymphocytes Auto (Unsp spec) [#/Vol] 1.59 10*3/uL 0.83-4.51 [facility] Basophil percentageOrdered B y: Antonella Milla on 01-19-2023 Basophils/100 WBC (Bld) 1.1 % 0-1 [facility] Bilirubin [Mass/Vol] 0.30 mg/dL 0.20-1.00 [facility] Comment on above: For patients on eltr ombopag therapy, use of Dimension [place] TBIL is not recommended. Chloride [Moles/Vol] 107 mmol/L 98-107 [facility] Cholesterol [Mass/Vol] 208 mg/dL <200 [facility] Comment on above: <200 mg/dL Desirable 200-240 mg/dL Borderline >240 mg/dL High Risk Eosinophils/100 WBC (Bld) 1.3 % 0-5 [facility] Glucose [Mass/Vol] 79 mg/dL 74-106 [facility] Neutrophils (Bld) [#/Vol] 3.4 10*3/uL 2.0-7.7 [facility] Neutrophils/100 WBC (Bld) 61.4 % 47-70 [facility] Potassium [Moles/Vol] 4.0 mmol/L 3.5-5.1 [facility] Protein [Mass/Vol] 6.8 g/dL 6.4-8.2 [facility] Sodium [Moles/Vol] 139 mmol/L 136-145 [facility] Triglyceride [Mass/Vol] 67 mg/dL <199 [facility] Comment on above: The drugs N-Acetylcy steine and Metamizole may falsely depress this assay.Serum Triglycerides Reference Interval Normal <150 mg/dL Borderline high 150 - 199 mg/dL High 200 - 499 mg/dL Very High > or = 500 mg/dL WBC (Bld) [#/Vol] 5.5 10*3/uL 4.4-11.0 [facility] Blood erythrocytes count (nu mber/volume)Ordered By: Antonella Loyola on 01-19-2023 RBC (Bld) [#/Vol] 3.68 10*6/uL 4.2-5.4 [facility] Blood hemoglobin measurement (mass/volume)Ordered By: Antonella Loyola on 01-19-2023 Hemoglobin (Bld) [Mass/Vol] 11.8 g/dL 12.0-15.0 [facility] Blood lymphocytes/100 leukoc ytesOrdered By: Antonella Loyola on 01-19-2023 Lymphocytes/100 WBC (Bld) 28.8 % 19-41 [facility] Blood monocytes/100 leukocyt esOrdered By: Antonella Loyola on 01-19-2023 Monocytes/100 WBC (Bld) 7.2 % 0-10 [facility] Blood platelet mean volumeOr dered By: Antonella Loyola on 01-19-2023 Platelet mean volume (Bld) [Entitic vol] 11.5 fL 6.2-12.0 [facility] Determination of erythrocyte mean corpuscular volume (MCV)Ordered By: Antonella Loyola on 01-19-2023 MCV (RBC) [Entitic vol] 100.0 fL 81-99 [facility] Hematocrit Auto (Bld) [Volum e fraction]Ordered By: Antonella Loyola on 01-19-2023 Hematocrit (Bld) [Volume fraction] 36.8 % 37-47 [facility] Laboratory - Chemistry and C hemistry - challengeOrdered By: Antonella Loyola on 01-19-2023 ALP [Catalytic activity/Vol] 58 U/L 45-117 [facility] ALT [Catalytic activity/Vol] 15 U/L 13-56 [facility] CO2 [Moles/Vol] 29.0 mmol/L 21.0-32.0 [facility] Cobalamin (Vitamin B12) [Mass/Vol] 1610 pg/mL 211-911 [facility] Free T4 [Mass/Vol] 0.89 ng/dL 0.76-1.46 [facility] Globulin (S) [Mass/Vol] 3.6 g/dL 2.2-4.2 [facility] Urea nitrogen/Creatinine [Mass ratio] 20.4 mg/mg 10-20 [facility] Laboratory - Hematology and Cell countsOrdered By: Antonella Loyola on 01-19-2023 Erythrocyte distribution width (RBC) [Entitic vol] 50.5 fL 35.1-43.9 [facility] Erythrocyte distribution width (RBC) [Ratio] 13.7 % 11.6-14.6 [facility] Immature granulocytes/100 WBC (Bld) 0.200 % 0.0-0.9 [facility] Comment on above: IG% - Immature Granu locytes (promyelocytes, myelocytes and metamyelocytes) > 1% indicates that a LEFT SHIFT is Present. MCH (RBC) [Entitic mass] 32.1 pg 27.0-32.0 [facility] Nucleated RBC/100 WBC (Bld) [Ratio] 0 % 0-5 [facility] MCHC Auto (RBC) [Mass/Vol]Or dered By: Antonella Loyola on 01-19-2023 MCHC (RBC) [Mass/Vol] 32.1 g/dL 32-36 [facility] No Panel InformationOrdered By: Antonella Loyola on 01-19-2023 Estimated GFR (MDRD) Amer 74 mL/min >60 [facility] Comment on above: GFR Calc Estimated GFR (MDRD) Non-Af Amer 61 mL/min >60 [facility] Comment on above: Non- GFR Calc Free Triiodothyronine (T3) pg/dL 1.7 pg/mL 2.18-3.98 [facility] Thyroid Stimulating Hormone (TSH) 1.87 uIU/mL 0.358-3.74 [facility] Platelets bldOrdered By: Aurelia Loyola on 01-19-2023 Platelets (Bld) [#/Vol] 240 10*3/uL 150-450 [facility] Serum or plasma albumin enrrique urement (mass/volume)Ordered By: Antonella Loyola on 01-19-2023 Albumin [Mass/Vol] 3.2 g/dL 3.2-5.0 [facility] Serum or plasma albumin/glob ulin mass ratioOrdered By: Antonella Loyola on 01-19-2023 Albumin/Globulin [Mass ratio] 0.9 {ratio} 0.9-2.4 [facility] Serum or plasma calcium enrrique urement (mass/volume)Ordered By: Antonella Loyola on 01-19-2023 Calcium [Mass/Vol] 9.0 mg/dL 8.5-10.1 [facility] Serum or plasma cholesterol in HDL measurement (mass/volume)Ordered By: Antonella Loyola on 01-19-2023 Cholesterol in HDL [Mass/Vol] 79 mg/dL >40 [facility] Comment on above: The drugs N-Acetylcy steine and Metamizole may falsely depress this assay. Reference Range HDL <40 mg/dL Low HDL Cholesterol HDL >or= 60 mg/dL High HDL Cholesterol Serum or plasma cholesterol in VLDL measurement (mass/volume)Ordered By: Antonella Loyola on 01-19-2023 Cholesterol in VLDL [Mass/Vol] 13 mg/dL 5-40 [facility] Serum or plasma creatinine m easurement (mass/volume)Ordered By: Antonella Loyola on 01-19-2023 Creatinine [Mass/Vol] 0.93 mg/dL 0.55-1.02 [facility] Comment on above: The validity of the calculated GFR & GFRAA in patients over 70 years has not been determined. Clinical correlation is essential. Serum or plasma low density lipoprotein (LDL) cholesterol measurement (mass/volume)Ordered By: Antonella Loyola on 01-19-2023 Cholesterol in LDL [Mass/Vol] 116 mg/dL 0-130 [facility] Serum or plasma urea nitroge n measurement (mass/volume)Ordered By: Antonella Loyola on 01-19-2023 Urea nitrogen [Mass/Vol] 19 mg/dL 7-18 [facility] Thin prep Papanicolaou smear with manual screeningOrdered By: Antonella Milla on 01-19-2023 Thin prep Papanicolaou smear with manual screening 18 U/L 15-37 [facility] Thin prep Papanicolaou smear with manual screening 3 5-15 [facility] Absolute lymphocyte counton 05-27-2022 Lymphocytes Auto (Unsp spec) [#/Vol] 0.34 10*3/uL 0.83-4.51 [facility] Work Phone: Basophil percentageon 2021 Basophil percentage 0 SEEN /hpf 0-5 [facility] Work Phone: Basophils/100 WBC (Bld) 0.3 % 0-1 [facility] Work Phone: Chloride [Moles/Vol] 102 mmol/L 98-107 [facility] Work Phone: Eosinophils/100 WBC (Bld) 2.0 % 0-5 [facility] Work Phone: Glucose [Mass/Vol] 108 mg/dL 74-106 [facility] Work Phone: Comment on above: Fasting Glucose resu lt from 100 to 125 mg/dL suggests IMPAIRED HOMEOSTASIS per A.D.A. criteria. Neutrophils (Bld) [#/Vol] 4.9 10*3/uL 2.0-7.7 [facility] Work Phone: Neutrophils/100 WBC (Bld) 81.2 % 47-70 [facility] Work Phone: Potassium [Moles/Vol] 3.5 mmol/L 3.5-5.1 [facility] Work Phone: Sodium [Moles/Vol] 138 mmol/L 136-145 [facility] Work Phone: WBC (Bld) [#/Vol] 6.0 10*3/uL 4.4-11.0 [facility] Work Phone: Bilirubin Test strip Ql (U)o n 05-27-2022 Bilirubin Ql (U) Negative Negative [facility] Work Phone: [phone] Blood erythrocytes count (nu mber/volume)on 05-27-2022 RBC (Bld) [#/Vol] 3.59 10*6/uL 4.2-5.4 [facility] Work Phone: [phone] Blood hemoglobin measurement (mass/volume)on 05-27-2022 Hemoglobin (Bld) [Mass/Vol] 11.5 g/dL 12.0-15.0 [facility] Work Phone: Blood lymphocytes/100 leukoc yteson 05-27-2022 Lymphocytes/100 WBC (Bld) 5.6 % 19-41 [facility] Work Phone: [phone] Blood manual differential co mment interpretation (narrative result)on 05-27-2022 Manual differential comment Jason (Bld) [Interp] SCANNED [facility] Work Phone: Comment on above: LYMPHOPENIA NOTED Blood monocytes/100 leukocyt eson 05-27-2022 Monocytes/100 WBC (Bld) 10.6 % 0-10 [facility] Work Phone: Blood platelet mean volumeon 05-27-2022 Platelet mean volume (Bld) [Entitic vol] 11.1 fL 6.2-12.0 [facility] Work Phone: [phone] Determination of erythrocyte mean corpuscular volume (MCV)on 05-27-2022 MCV (RBC) [Entitic vol] 95.8 fL 81-99 [facility] Work Phone: [phone] Hematocrit Auto (Bld) [Volum e fraction]on 05-27-2022 Hematocrit (Bld) [Volume fraction] 34.4 % 37-47 [facility] Work Phone: [phone] Ketones Test strip Ql (U)on 05-27-2022 Ketones Ql (U) 5 mg/dl Negative [facility] Work Phone: Laboratory - Chemistry and C hemistry - challengeon 05-27-2022 CO2 [Moles/Vol] 29.0 mmol/L 21.0-32.0 [facility] Work Phone: [phone] Urea nitrogen/Creatinine [Mass ratio] 18.5 mg/mg 10-20 [facility] Work Phone: [phone] Laboratory - Hematology and Cell countson 05-27-2022 Erythrocyte distribution width (RBC) [Entitic vol] 46.7 fL 35.1-43.9 [facility] Work Phone: [phone] Erythrocyte distribution width (RBC) [Ratio] 13.2 % 11.6-14.6 [facility] Work Phone: [phone] Immature granulocytes/100 WBC (Bld) 0.300 % 0.0-0.9 [facility] Work Phone: [phone] Comment on above: IG% - Immature Granu locytes (promyelocytes, myelocytes and metamyelocytes) > 1% indicates that a LEFT SHIFT is Present. MCH (RBC) [Entitic mass] 32.0 pg 27.0-32.0 [facility] Work Phone: [phone] Nucleated RBC/100 WBC (Bld) [Ratio] 0 % 0-5 [facility] Work Phone: [phone] MCHC Auto (RBC) [Mass/Vol]on 05-27-2022 MCHC (RBC) [Mass/Vol] 33.4 g/dL 32-36 [facility] Work Phone: [phone] Mucus LM Ql (Urine sed)on Mucus Ql (Urine sed) 0 SEEN /hpf [facility] Work Phone: [phone] Nitrite Test strip Ql (U)on 05-27-2022 Nitrite Ql (U) Negative Negative [facility] Work Phone: [phone] Panel Informationon 05-27 Estimated Creatinine Clearance Calc 48.22 ml/min [facility] Work Phone: [phone] Estimated GFR (MDRD) Amer 76 mL/min >60 [facility] Work Phone: [phone] Comment on above: GFR Calc Estimated GFR (MDRD) Non-Af Amer 63 mL/min >60 [facility] Work Phone: Comment on above: Non- GFR Calc Platelets bldon 05-27-2022 Platelets (Bld) [#/Vol] 205 10*3/uL 150-450 [facility] Work Phone: Protein Test strip Ql (U)on 05-27-2022 Protein Ql (U) Negative Negative [facility] Work Phone: Serum or plasma calcium enrrique urement (mass/volume)on 05-27-2022 Calcium [Mass/Vol] 9.1 mg/dL 8.5-10.1 [facility] Work Phone: Serum or plasma creatinine m easurement (mass/volume)on 05-27-2022 Creatinine [Mass/Vol] 0.92 mg/dL 0.55-1.02 [facility] Work Phone: Comment on above: The validity of the calculated GFR & GFRAA in patients over 70 years has not been determined. Clinical correlation is essential. Serum or plasma urea nitroge n measurement (mass/volume)on 05-27-2022 Urea nitrogen [Mass/Vol] 17 mg/dL 7-18 [facility] Work Phone: Squamous epithelial cells de tection in urine sediment by light microscopyon 05-27-2022 Epithelial cells.squamous LM Ql (Urine sed) 0 SEEN /hpf 5-10 [facility] Work Phone: Thin prep Papanicolaou smear with manual screeningon 05-27-2022 Thin prep Papanicolaou smear with manual screening 7 5-15 [facility] Work Phone: Urine blood detectionon RBC Ql (U) Negative Negative [facility] Work Phone: RBC Ql (U) 0 SEEN /hpf 0-5 [facility] Work Phone: Urine clarityon 05-27-2022 Clarity (U) Clear Clear [facility] Work Phone: Urine color determinationon 05-27-2022 Color (U) Yellow Yellow [facility] Work Phone: Urine glucose detectionon Glucose Ql (U) Normal mg/dl Normal [facility] Work Phone: Urine leukocyte esterase det ection by dipstickon 05-27-2022 Leukocyte esterase Test strip Ql (U) Negative Negative [facility] Work Phone: Urine pHon 05-27-2022 pH (U) 7.0 [pH] 5.0 - 8.0 [facility] Work Phone: Urine sediment bacteria coun t by microscopy (number/high power field)on 05-27-2022 Bacteria LM.HPF (Urine sed) [#/Area] 0 /[HPF] None Seen [facility] Work Phone: Urine specific gravity measu rementon 05-27-2022 Specific gravity (U) [Rel density] 1.010 1.002-1.030 [facility] Work Phone: Urobilinogen Auto test strip Ql (U)on 05-27-2022 Urobilinogen Ql (U) Normal mg/dl Normal [facility] Work Phone: Absolute lymphocyte counton 01-01-2022 Lymphocytes Auto (Unsp spec) [#/Vol] 1.64 10*3/uL 0.83-4.51 [facility] Work Phone: Basophil percentageon 2021 Basophil percentage 0-5 SEEN /hpf 0-5 [facility] Work Phone: Basophils/100 WBC (Bld) 0.7 % 0-1 [facility] Work Phone: Bilirubin [Mass/Vol] 0.30 mg/dL 0.20-1.00 [facility] Work Phone: Comment on above: For patients on eltr ombopag therapy, use of Dimension [place] TBIL is not recommended. Chloride [Moles/Vol] 107 mmol/L 98-107 [facility] Work Phone: Eosinophils/100 WBC (Bld) 1.8 % 0-5 [facility] Work Phone: Glucose [Mass/Vol] 81 mg/dL 74-106 [facility] Work Phone: Neutrophils (Bld) [#/Vol] 3.6 10*3/uL 2.0-7.7 [facility] Work Phone: Neutrophils/100 WBC (Bld) 60.7 % 47-70 [facility] Work Phone: Potassium [Moles/Vol] 4.1 mmol/L 3.5-5.1 [facility] Work Phone: Protein [Mass/Vol] 6.7 g/dL 6.4-8.2 [facility] Work Phone: Sodium [Moles/Vol] 140 mmol/L 136-145 [facility] Work Phone: WBC (Bld) [#/Vol] 6.0 10*3/uL 4.4-11.0 [facility] Work Phone: Bilirubin Test strip Ql (U)o n 01-01-2022 Bilirubin Ql (U) Negative Negative [facility] Work Phone: Blood erythrocytes count (nu mber/volume)on 01-01-2022 RBC (Bld) [#/Vol] 3.57 10*6/uL 4.2-5.4 [facility] Work Phone: Blood hemoglobin measurement (mass/volume)on 01-01-2022 Hemoglobin (Bld) [Mass/Vol] 11.2 g/dL 12.0-15.0 [facility] Work Phone: Blood lymphocytes/100 leukoc yteson 01-01-2022 Lymphocytes/100 WBC (Bld) 27.5 % 19-41 [facility] Work Phone: Blood monocytes/100 leukocyt eson 01-01-2022 Monocytes/100 WBC (Bld) 9.0 % 0-10 [facility] Work Phone: Blood platelet mean volumeon 01-01-2022 Platelet mean volume (Bld) [Entitic vol] 12.7 fL 6.2-12.0 [facility] Work Phone: [phone] Determination of erythrocyte mean corpuscular volume (MCV)on 01-01-2022 MCV (RBC) [Entitic vol] 98.0 fL 81-99 [facility] Work Phone: [phone] Erythrocyte sedimentation ra trent 01-01-2022 ESR (Bld) [Velocity] 16 mm/h 0-30 [facility] Work Phone: [phone] Hematocrit Auto (Bld) [Volum e fraction]on 01-01-2022 Hematocrit (Bld) [Volume fraction] 35.0 % 37-47 [facility] Work Phone: [phone] Ketones Test strip Ql (U)on 01-01-2022 Ketones Ql (U) Negative Negative [facility] Work Phone: [phone] Laboratory - Chemistry and C hemistry - challengeon 01-01-2022 ALP [Catalytic activity/Vol] 56 U/L 45-117 [facility] Work Phone: [phone] ALT [Catalytic activity/Vol] 20 U/L 13-56 [facility] Work Phone: [phone] CO2 [Moles/Vol] 29.0 mmol/L 21.0-32.0 [facility] Work Phone: [phone] Free T4 [Mass/Vol] 1.25 ng/dL 0.76-1.46 [facility] Work Phone: [phone] Globulin (S) [Mass/Vol] 3.3 g/dL 2.2-4.2 [facility] Work Phone: [phone] Urea nitrogen/Creatinine [Mass ratio] 25.0 mg/mg 10-20 [facility] Work Phone: [phone] Laboratory - Hematology and Cell countson 01-01-2022 Erythrocyte distribution width (RBC) [Entitic vol] 47.1 fL 35.1-43.9 [facility] Work Phone: Erythrocyte distribution width (RBC) [Ratio] 13.1 % 11.6-14.6 [facility] Work Phone: Immature granulocytes/100 WBC (Bld) 0.300 % 0.0-0.9 [facility] Work Phone: [phone] Comment on above: IG% - Immature Granu locytes (promyelocytes, myelocytes and metamyelocytes) > 1% indicates that a LEFT SHIFT is Present. MCH (RBC) [Entitic mass] 31.4 pg 27.0-32.0 [facility] Work Phone: Nucleated RBC/100 WBC (Bld) [Ratio] 0 % 0-5 [facility] Work Phone: [phone] MCHC Auto (RBC) [Mass/Vol]on 01-01-2022 MCHC (RBC) [Mass/Vol] 32.0 g/dL 32-36 [facility] Work Phone: Mucus LM Ql (Urine sed)on Mucus Ql (Urine sed) 0 SEEN /hpf [facility] Work Phone: Nitrite Test strip Ql (U)on 01-01-2022 Nitrite Ql (U) Negative Negative [facility] Work Phone: No Panel Informationon 01-01 Estimated GFR (MDRD) Amer 80 mL/min >60 [facility] Work Phone: Comment on above: GFR Calc Estimated GFR (MDRD) Non-Af Amer 66 mL/min >60 [facility] Work Phone: Comment on above: Non- GFR Calc Free Triiodothyronine (T3) pg/dL 2.3 pg/mL 2.18-3.98 [facility] Work Phone: [phone] Thyroid Stimulating Hormone (TSH) 0.22 uIU/mL 0.358-3.74 [facility] Work Phone: Platelets bldon 01-01-2022 Platelets (Bld) [#/Vol] 184 10*3/uL 150-450 [facility] Work Phone: Protein Test strip Ql (U)on 01-01-2022 Protein Ql (U) Negative Negative [facility] Work Phone: Serum or plasma C reactive p rotein measurement (mass/volume)on 01-01-2022 CRP [Mass/Vol] mg/L 0.0-3.0 [facility] Work Phone: Comment on above: C-Reactive Protein ( CRP) provides useful information for thediagnosis, therapy and monitoring of inflammatory processesand associated diseases. For the evaluation of Relative Riskfor Cardiovascular Disease, a High Sensitivity CRP (HSCRP)should be ordered. Serum or plasma albumin enrrique urement (mass/volume)on 01-01-2022 Albumin [Mass/Vol] 3.4 g/dL 3.2-5.0 [facility] Work Phone: Serum or plasma albumin/glob ulin mass ratioon 01-01-2022 Albumin/Globulin [Mass ratio] 1.0 {ratio} 0.9-2.4 [facility] Work Phone: Serum or plasma calcium enrrique urement (mass/volume)on 01-01-2022 Calcium [Mass/Vol] 8.8 mg/dL 8.5-10.1 [facility] Work Phone: Serum or plasma creatinine m easurement (mass/volume)on 01-01-2022 Creatinine [Mass/Vol] 0.88 mg/dL 0.55-1.02 [facility] Work Phone: Comment on above: The validity of the calculated GFR & GFRAA in patients over 70 years has not been determined. Clinical correlation is essential. Serum or plasma urea nitroge n measurement (mass/volume)on 01-01-2022 Urea nitrogen [Mass/Vol] 22 mg/dL 7-18 [facility] Work Phone: Serum or plasma uric acid me asurement (mass/volume)on 01-01-2022 Urate [Mass/Vol] 4.7 mg/dL 2.6-6.0 [facility] Work Phone: Comment on above: The drugs N-Acetylcy steine and Metamizole may falsely depress this assay. Squamous epithelial cells de tection in urine sediment by light microscopyon 01-01-2022 Epithelial cells.squamous LM Ql (Urine sed) 0-5 SEEN /hpf 5-10 [facility] Work Phone: Thin prep Papanicolaou smear with manual screeningon 01-01-2022 Thin prep Papanicolaou smear with manual screening 18 U/L 15-37 [facility] Work Phone: Thin prep Papanicolaou smear with manual screening 4 5-15 [facility] Work Phone: Urine blood detectionon 12-23-2021 RBC Ql (U) Negative Negative [facility] Work Phone: [phone] RBC Ql (U) 0 SEEN /hpf 0-5 [facility] Work Phone: Urine clarityon 01-01-2022 Clarity (U) Sl. Cloudy Clear [facility] Work Phone: Urine color determinationon 01-01-2022 Color (U) Yellow Yellow [facility] Work Phone: Urine glucose detectionon Glucose Ql (U) Normal mg/dl Normal [facility] Work Phone: Urine leukocyte esterase det ection by dipstickon 01-01-2022 Leukocyte esterase Test strip Ql (U) 25 /ul Negative [facility] Work Phone: Urine pHon 01-01-2022 pH (U) 6.5 [pH] 5.0 - 8.0 [facility] Work Phone: Urine sediment bacteria coun t by microscopy (number/high power field)on 01-01-2022 Bacteria LM.HPF (Urine sed) [#/Area] 1 /[HPF] None Seen [facility] Work Phone: Urine specific gravity measu rementon 01-01-2022 Specific gravity (U) [Rel density] 1.015 1.002-1.030 [facility] Work Phone: Urobilinogen Auto test strip Ql (U)on 01-01-2022 Urobilinogen Ql (U) Normal mg/dl Normal [facility] Work Phone: Culture, urine Bacteria identified Cx Nom (U) Corynebacterium jeikeium [facility] Work Phone: Bacteria identified Cx Nom (U) Corynebacterium urealyticum [facility] Work Phone: Bacteria identified Cx Nom (U) Mixed Culture [facility] Work Phone: Bacteria identified Cx Nom (U) Positive [facility] Work Phone: No Panel Information SARS-CoV-2 & FLU Antigen (Rapid) [facility] Work Phone: Vital Signs Date Time Vital Sign Value Performing Clinician Faci lity 07-04-2023 17:35-0500 Body height 177.8 cm [facility] 07-04-2023 17:35-0500 Body mass index (BMI) [Ratio] 18.3 kg/m2 [facility] 07-04-2023 17:35-0500 Body temperature 97.5 [degF] [facility] 07-04-2023 17:35-0500 Body weight 58.05 kg [facility] 07-04-2023 17:35-0500 Diastolic blood pressure 91 mm[Hg] [facility] 07-04-2023 17:35-0500 Heart rate 89 /min [facility] 07-04-2023 17:35-0500 Respiratory rate 16 /min [facility] 07-04-2023 17:35-0500 SaO2% (BldA) [Mass fraction] 96 % [facility] 07-04-2023 17:35-0500 Systolic blood pressure 170 mm[Hg] [facility] 07-04-2023 11:13-0500 Diastolic blood pressure 89 mm[Hg] [facility] 07-04-2023 11:13-0500 Heart rate 74 /min [facility] 07-04-2023 11:13-0500 Respiratory rate 16 /min [facility] 07-04-2023 11:13-0500 SaO2% (BldA) [Mass fraction] 97 % [facility] 07-04-2023 11:13-0500 Systolic blood pressure 161 mm[Hg] [facility] 07-04-2023 09:20-0500 Body mass index (BMI) [Ratio] 18.9 kg/m2 [facility] 07-04-2023 09:20-0500 Body weight 54.9 kg [facility] 07-04-2023 09:12-0500 Body height 170.18 cm [facility] 07-04-2023 09:12-0500 Body temperature 97.5 [degF] [facility] 11-23-2022 12:11-0400 Body height 170.[address] Antonella Loyola Work Phone: [facility] 11-03-2022 10:56-0400 Body height 170.[address] Antonella Loyola Work Phone: [facility] 11-03-2022 10:56-0400 Body mass index (BMI) [Ratio] 21 kg/m2 Dr. Antonella Loyola Work Phone: [facility] 11-03-2022 10:56-0400 Body weight 60.[address] Antonella Loyola Work Phone: [facility] 05-27-2022 22:19-0400 Diastolic blood pressure 72 mm[Hg] [facility] Work Phone: 05-27-2022 22:19-0400 Heart rate 76 /min [facility] Work Phone: 05-27-2022 22:19-0400 Respiratory rate 16 /min [facility] Work Phone: 05-27-2022 22:19-0400 SaO2% (BldA) [Mass fraction] 96 % [facility] Work Phone: 05-27-2022 22:19-0400 Systolic blood pressure 145 mm[Hg] [facility] Work Phone: 05-27-2022 18:59-0400 Body height 170.18 cm [facility] Work Phone: 05-27-2022 18:59-0400 Body mass index (BMI) [Ratio] 21.8 kg/m2 [facility] Work Phone: 05-27-2022 18:59-0400 Body weight 63.2 kg [facility] Work Phone: 05-27-2022 18:03-0400 Body temperature 97.8 [degF] [facility] Work Phone: Encounters Encounter Date Encounter Type Care Provider Facility Start: 10-29-2024 End: 10-29-2024 ambulatory Cecilia Shannan Facility:[facility] Start: 08-01-2024 End: 08-01-2024 ambulatory Cecilia Shannan Facility:[facility] Start: 04-30-2024 End: 04-30-2024 ambulatory Antonella Malys Facility:[facility] Start: 04-16-2024 End: 04-16-2024 ambulatory Antonella Malys Facility:[facility] Start: 04-04-2024 ambulatory Miguel Mariee Facility: [facility] Start: 04-04-2024 End: 04-04-2024 ambulatory Miguel Mariee Facility:[facility] Start: 03-29-2024 End: 03-29-2024 ambulatory Antonella Malys Facility:[facility] Start: 03-14-2024 End: 03-14-2024 ambulatory Antonella Malys Facility:[facility] Start: 02-29-2024 End: 02-29-2024 ambulatory Antonella Malys Facility:[facility] Start: 02-29-2024 End: 02-29-2024 ambulatory Miguel Mariee Facility:[facility] Start: 02-24-2024 End: 02-24-2024 ambulatory Miguel Mariee Facility:[facility] Start: 02-22-2024 End: 02-22-2024 ambulatory Antonella Malys Facility:[facility] Start: 02-15-2024 End: 02-15-2024 ambulatory Antonella Malys Facility:[facility] Start: 01-09-2024 End: 01-09-2024 ambulatory Antonella Malys Facility:[facility] Start: 07-04-2023 End: 07-04-2023 Emergency department patient visit [facility] Work Phone: Start: 07-04-2023 End: 07-04-2023 Emergency department patient visit [facility] Work Phone: Start: 01-19-2023 End: 01-19-[address] Antonella Loyola Work Phone: [facility] Work Phone: Start: 01-19-2023 End: 01-19-[address] Antonella Loyola Work Phone: [facility] [place] Work Phone: Start: 11-24-2022 End: 11-24-[address] Antonella Loyola Work Phone: [facility] Work Phone: Start: 11-13-2022 End: 11-13-[address] Antonella Loyola Work Phone: [facility] Work Phone: Start: 11-13-2022 End: 11-13-[address] Antonella Loyola Work Phone: [facility] Start: 11-03-2022 End: 11-03-[address] Antonella Loyola Work Phone: [facility] Start: 05-27-2022 End: 05-27-2022 Emergency department patient visit [facility] Start: 04-22-2022 End: 04-22-2022 ambulatory [facility] Work Phone: Start: 04-22-2022 End: 04-22-2022 Patient encounter procedure [facility] Start: 01-28-2022 End: 01-28-2022 Patient encounter procedure [facility] Start: 01-21-2022 End: 01-21-2022 Patient encounter procedure [facility] Start: 01-01-2022 End: 01-01-2022 Patient encounter procedure [facility] [place] Procedures Date Procedure Procedure Detail Performing Clinician Start: 07-04-2023 CT of head without contrast Start: 11-13-2022 MRI of lumbar spine Dr. Antonella Loyola Work Phone: Start: 11-03-2022 X-ray of lumbar spin e, two or three views Dr. Antonella Loyola Work Phone: Start: 05-27-2022 CT of head without contrast SARS-CoV-2 & FLU Ant igen (Rapid) Urine culture Plan of Treatment Date Care Activity Detail Author Start: 07-04-2023 [facility] Start: 07-04-2023 [facility] Start: 11-24-2022 Patient referral [facility] Work Phone: Start: 01-01-2022 Bacteria identified in Urine by Culture Urine Culture [facility] Work Phone: Patient Education [facility] Work Phone: Patient referral [facility] Work Phone: Immunizations Immunization Date Immunization Notes Care Provider Philip clarke 05-03-2018 Influenza virus vaccine [facility] 08-02-2013 Influenza virus vaccine [facility] Payers Date Payer Category Payer Self-pay [id number] 2015 Private Health Insurance [id number] 2007 Medicare [id number] Unknown 1934 2.16.8 [id number] Unknown [id number] 2.16.8 [id number] Unknown [id number] 2.16.8 [id number] Unknown [id number] 2.16.8 [id number] Unknown [id number] 2.16.8 [id number] Unknown [id number] 2.16.8 [id number] Unknown [id number] 2.16.8 [id number] Unknown [id number] 2.16.8 [id number] Unknown [id number] 2.16.8 [id number] Unknown [id number] 2.16.8 [id number] Unknown [id number] 2.16.8 [id number] Unknown [id number] 2.16.8 [id number] Unknown [id number] 2.16.8 [id number] Unknown [id number] 2.16.8 [id number] Unknown [id number] 2.16.8 [id number] Unknown [id number] 2.16.8 [id number] Social History Date Type Detail Facility Start: 03-20-2021 End: 07-04-2023 Tobacco smoking status NHIS Unknown if ever smoked [facility] Start: 08-09-2018 Rare [facility] Start: 08-09-2018 None [facility] Start: 09-10-2020 Spouse/ Signif icant Other [facility] Start: 08-10-2018 Non-smoker [facility] Start: 1940 Sex Assigned At Female [facility] Mental Status Date Assessment Result Facility 07-04-2023 Cognitive function Level Of Consciousness Awake [facility] Work Phone: 07-04-2023 Cognitive function Level Of Cons ciousness Awake;Appropriate;Follows Commands;Disoriented [facility] Work Phone: 05-27-2022 Cognitive function Appropriate;Cooperativ e [facility] Work Phone: Clinical Note 04-04-2024 Note Date & Type Note Facility 04-04-2024 Note [facility] Medical Records Department [address] [place] [address] History Physical Exam 04/04/24 1041 MR#: [id number] Acct: [id number] Name: ESTRADA MURO Rep #: [id number] : 1940 83 From: Miguel Mariee MD PCP: Dr. Antonella Loyola, Status:[facility] Location: [place] [address] History and Physical Date of Service: 03/29/24 MR#: [id number] Acct: [id number] Name: ESTRADA MURO Rep #: [id number] : 1940 Provider: Dr. Miguel Mariee MD Age/Sex: 83/F Location: [facility] Status: Signed Intake Vital Signs 03/14/2415:28 03/29/2408:07 Height 5 ft 7 in 5 ft 7 in Weight: 123 lb 8 oz 123 lb 6 oz BMI 19.3 19.3 BP 144/80 H 143/85 H Blood Pressure Location Lt brachial Rt brachial Position Sitting Sitting Respiration 16 17 Pulse 74 78 Pulse Source Monitor Monitor Temp 97.7 F L Pulse Oximetry (%) 97 98 Oxygen Delivery Method room air room air Intake Visit Reasons: DISCUSS BREAST SURGREY Chief Complaint: discuss breast surgery Is patient in pain?: No Allergies No Known Allergies Allergy (Verified 03/29/24 15:37) Medications ???Medication ???Instructions ???Recorded ???Confirmed ???Type levothyroxine 75 mcg tablet 75 mcg PO SUTUTHSA 02/22/24 03/29/24 History (Synthroid) levothyroxine 88 mcg tablet 88 mcg PO MOWEFR 02/22/24 03/29/24 History (Synthroid) memantine 14 mg capsule 14 mg PO QDAY 02/22/24 03/29/24 History sprinkle,extended release 24hr duloxetine 20 mg capsule,delayed 20 mg PO BID 03/29/24 03/29/24 History release lisinopril 20 mg tablet 20 mg PO BID 03/29/24 03/29/24 History Have you fallen in the past year?: No PFSH Medical History (Updated 03/29/24 @ 17:[address] Miguel Mariee MD) Wears hearing aid Wears glasses Osteoporosis Anxiety Depression Non-smoker Migraines Thyroid cancer Sciatica Arthritis Environmental allergies Hypothyroid HTN (hypertension) Enteritis Surgical History H/O thyroidectomy History of facial surgery s/p pelvic floor reconstruction S/P hysterectomy Family History Other No pertinent family history Social History household members: spouse Smoking Status: Never smoker alcohol intake: never substance use type: does not use HPI HPI HPI: Patient is an 83-year-old female who presents for an abnormal screening mammographic finding and had made her initial consultation visit 02/22/2024. She underwent core needle biopsy of this area on 02/29/2024 which confirmed the presence of invasive ductal carcinoma. In the meantime patient has met with oncology, Dr. Mayer on 03/15/2024. She presents today with her . She confirms that she has healed well following her biopsy and denies any pain from the breast site. Patient is an 83-year-old female who presents for an abnormal screening mammographic finding and had made her initial consultation visit 02/22/2024. However, at that visit she had not completed a reflex ultrasound and was able to have this study completed in the interim on 02/24/2024. This confirmed the presence of a 1.2 cm hypoechoic area 5 cm from the nipple along the 12 o'clock position. Patient presents to today's visit with her sister. Below is recapitulated from patient's initial consultation visit for ease of review: Patient is a 83-year-old female who presents for abnormal screening mammogram finding. She presents today with her . They are referred from Dr. Loyola. Based on mammographic imaging criteria this was given a BI-RADS 4. Interestingly no reflex ultrasound was performed. Patient has a history of dementia and so much of her history is gleaned from her . Patient has no prior history of breast pathology. She thus has no history of prior breast biopsy. She underwent menarche at the age of 15. She has had 1 pregnancies and 1 live births. Patient has no first- degree relatives with breast cancer. There is no tenderness with the present finding. There is no nipple discharge associated with this finding. The patient is no history of hormone replacement therapy. There is no history of trauma/infection to the affected breast. ROS General General: No weight change, appetite, fatigue, colon cancer, breast cancer or weakness HEENT HEENT: No difficulty swallowing, eye injury, eye surgery, swollen glands or hoarseness Endo Endocrine: Yes thyroid disease; No diabetes mellitus, thyroid cancer, Hair loss, heat intolerance or cold intolerance Skin Skin: No rash or changing moles Breast Breast: Yes ab (more content not included)... [facility] Discharge summary 07-04-2023 Note Date & Type Note Facility 07-04-2023 Discharge summary Note Date/Time July 04, 2023 6:26pm [facility] Medical Records Department [address] [place] [address] Emergency Department Summary 07/04/23 MR#: [id number] Acct: [id number] Name: ESTRADA MURO Rep #:[id number] : 1940 82 From: Marcos Beckford MD PCP: Dr. Antonella Loyola, DO Status:REG ER Location: ED HPI History of Present Illness Chief Complaint: Headache Narrative Narrative: 82-year-old female past medical history of dementia, was seen in the emergency department earlier today for acute headache. Her relates history that they were told that it may be secondary to her blood pressure. She had CT performed along with laboratory work. She received a small dose of morphine andondansetron which temporarily relieved her headache. states that she went home, took a nap, then started complaining of pain again. It is above her eyes and around her nose. She has had nasal congestion but no fever. He thought that she was in a large amount of discomfort so he returned to the emergency department. PFS PFSH Medical History Anxiety Arthritis Depression Enteritis Environmental allergies HTN (hypertension) Hypothyroid Migraines Non-smoker Sciatica Thyroid cancer Home Medications calcium carbonate 500 mg calcium (1,250 mg) tablet 500 mg PO DAILY@0800 supplement 08/16/13 [History Last Taken 02/14/23] levothyroxine 100 mcg tablet 88 mcg PO DAILY thyroid 08/16/13 [History Last Taken 02/14/23] lisinopril 20 mg tablet 20 mg PO BID htn 08/16/13 [History Last Taken 02/14/23] cyanocobalamin (vitamin B-12) 500 mcg tablet 1,000 mcg PO DAILY@0800 08/25/19 [History Last Taken 02/14/23] aspirin 81 mg tablet,delayed release 81 mg PO DAILY 05/27/22 [History Last Taken 02/14/23] duloxetine 20 mg capsule,delayed release 20 mg PO DAILY 02/14/23 [History Last Taken 02/14/23] multivitamin (Daily Multi-Vitamin tablet) 1 tab PO DAILY SUPPLEMENT 02/14/23 [History Last Taken 02/14/23] Allergy/AdvReac Type Severity Reaction Status Date / Time No Known Allergies Allergy Verified 07/04/23 09:17 Surgical History H/O thyroidectomy History of facial surgery S/P hysterectomy s/p pelvic floor reconstruction Social History household members: spouse Smoking Status: Never smoker alcohol intake: never substance use type: does not use ROS ROS ED ROS Narrative Limited secondary to dementia. Constitutional: No fever, no chills. HEENT: No sore throat. No neck pain. No loss of vision. Positive nasal congestion with occasional rhinorrhea. Cardiovascular: No chest pain. No palpitations. No pedal edema. Respiratory: No cough, no shortness of breath. Abdominal: No abdominal pain. No nausea. No vomiting. Genitourinary: No dysuria. No hematuria. Musculoskeletal: No myalgias. No arthralgias. Neurologic: Positive frontal headaches. No dizziness. No lightheadedness. Skin: No rash. No change in color. Psychiatric: No depression. No anxiety. EXAM Physical Exam Narrative Exam Narrative: Afebrile. Vital signs noted. HEENT: Normocephalic. Atraumatic. PERRL, EOMI. Neck soft and supple. No pointtenderness or step off. Positive nasal congestion. Tenderness to percussion ofsinuses. Cardiovascular: Regular rate and rhythm. No murmurs, rubs, or gallops appreciated. Respiratory: No tachypnea. Lungs clear to auscultation bilaterally. Gastrointestinal: Abdomen soft, nontender, with normoactive bowel sounds. No rebound or guarding. Neurological: Awake. Alert. Nonfocal, nonlateralizing. Consistent with dementia. Skin: No rash. Normal color. No pallor. Musculoskeletal: No pedal edema. Full range of motion extremities. Const Vital Signs: 07/04/23 17:35 Temperature 97.5 F L Temperature Source Temporal Pulse Rate 89 Respiratory Rate 16 Blood Pressure 170/91 H Blood Pressure Mean 117 Pulse Ox 96 Oxygen Delivery Method Room Air MDM MDM MDM Narrative Medical decision making narrative: I reviewed the patient's prior workup and ED visit. The review of her CT shows that she has mild thickening of the maxillary sinuses. She will be treated withan antihistamine in the form of Claritin, and with Tylenol. I did review her medication history and she did receive morphine 2 mg. She may be having more ofa rebound headache. I discussed the utility of CT repeat with her , and it was not deemed necessary. Additionally, she just had laboratory work done this morning. I do feel she may have more of a sinus headache which is in the differential as well. Although her blood pressure is slightly elevated, I have low concern for hypertensive encephalopathy and headache. Upon repeat examination, after nasal steroid as well, she feels improved. I feel she be discharged safely home with follow-up. I do not feel that she requires admission at this time or any repeat imaging. I do feel that she probably has more of a rebound headache and sinus headache. They were told to use mbda-ojs-dgyvfrf medications such as Claritin, and Coricidin HBP and to avoid use of pseudoephedrine like products for decongestion, as this will raise her blood pressure. I do not feel she requires admission. Patient's isagreeable to the plan. Disposition is discharged home in stable condition. History & Record Review Discussion w/independent historian: Patient and Family () Additional record(s) reviewed:: Prior ED visit and Prior labs Discharge Plan Triage Chief Complaint: Headache ED Provider: Marcos Beckford Dx/Rx/DC Orders Clinical Impression: Sinus headache, Headache above the eye region Instructions: ED Headache Unspecified, ED Sinus Headache Prescriptions: No Action lisinopril 20 MG tablet 20 mg PO BID levothyroxine 100 MCG tablet 88 mcg PO DAILY calcium carbonate 500 MG tablet 500 mg PO DAILY@0800 cyanocobalamin (vitamin B-12) 500 MCG tablet 1,000 mcg PO DAILY@0800 aspirin 81 mg Tablet,Delayed Release (Dr/Ec) 81 mg PO DAILY duloxetine 20 mg capsule,delayed release(DR/EC) 20 mg PO DAILY multivitamin [Daily Multi-Vitamin] Tablet 1 tab PO DAILY Primary Care Provider: Antonella Loyola Referrals: Antonella Loyola DO [Primary Care Provider] - 1-2 Days if not improving Activity Restrictions/Additional Instructions: Use dylm-kmb-kopvtil medications like Claritin is an antihistamine. You may also use a decongestant such as Coricidin HBP. Avoid use of pseudoephedrine or products that will elevate her blood pressure. You may use the nasal steroid 1 spray per nostril per day for up to 5 days. Disposition Disposition: Home, Self Care What to do if you have Problems For any increased pain, shortness of breath, bleeding, nausea or vomiting, chestpain, or any unexpected problems, contact your Primary Care Provider. Call [facility] ([phone]) or report to the closest Emergency Room. Call 911 if necessary. 07/04/231934 <Electronically signed by Marcos Beckford MD> Cosigner Signature (if applicable): CC: Dr. Antonella Loyola DO ~ Signed [facility] Work Phone: Discharge summary Note Date & Type Note Facility Discharge summary Note Date/Time July 04, 2023 10:06am [facility] Medical Records Department [address] [place] [address] Emergency Department Summary 07/04/23 MR#: [id number] Acct: [id number] Name: ESTRADA MURO Rep #:[id number] : 1940 82 From: Al Bassett MD PCP: Dr. Antonella Loyola, DO Status:REG ER Location: ED HPI History of Present Illness Chief Complaint: Headache Informant: patient and spouse/S.O. Limited: dementia Onset/Context/Timing Onset: Today Context: Sudden Timing: Continuous Location: Generalized Current Severity: Severe Maximum Severity: Severe Worsened by: Nothing Relieved by: Nothing Associated Symptoms/Injury Associated Symptoms: Negative for Fever, Nausea, Vomiting, Sore Throat, Sinus Pressure, Numbness, Tingling, Preceding Aura, Visual Changes, Blurred Vision, Photophobia or Visual Loss Injury - WRIGHT: Negative for Direct Trauma Narrative Narrative: Patient is an 82-year-old woman who is slightly more confused than normal. She has history of dementia. She had an abrupt onset of headache last evening watching TV. She says it hurts badly. She is unable to quantitate her qualitate anymore. informed that she has significant dementia. There is been no documented fever. She denies ringing or ears or decreased hearing. She denies runny nose, congestion or postnasal drainage. She denies sore throat. Denies neck pain or neck stiffness. She denies sensitivity to light orsound. She denies nausea, vomiting or diarrhea. She denies dysuria, frequency,urgency or hematuria. She has not had a urinary tract infection in some time. Prior similar symptoms: No Recent Illness/Hospitalization: No PFSH PFSH Medical History Anxiety Arthritis Depression Enteritis Environmental allergies HTN (hypertension) Hypothyroid Migraines Non-smoker Sciatica Thyroid cancer Home Medications calcium carbonate 500 mg calcium (1,250 mg) tablet 500 mg PO DAILY@0800 supplement 08/16/13 [History Last Taken 02/14/23] levothyroxine 100 mcg tablet 88 mcg PO DAILY thyroid 08/16/13 [History Last Taken 02/14/23] lisinopril 20 mg tablet 20 mg PO BID htn 08/16/13 [History Last Taken 02/14/23] cyanocobalamin (vitamin B-12) 500 mcg tablet 1,000 mcg PO DAILY@0800 08/25/19 [History Last Taken 02/14/23] aspirin 81 mg tablet,delayed release 81 mg PO DAILY 05/27/22 [History Last Taken 02/14/23] duloxetine 20 mg capsule,delayed release 20 mg PO DAILY 02/14/23 [History Last Taken 02/14/23] multivitamin (Daily Multi-Vitamin tablet) 1 tab PO DAILY SUPPLEMENT 02/14/23 [History Last Taken 02/14/23] Allergy/AdvReac Type Severity Reaction Status Date / Time No Known Allergies Allergy Verified 07/04/23 09:17 Surgical History H/O thyroidectomy History of facial surgery S/P hysterectomy s/p pelvic floor reconstruction Social History household members: spouse Smoking Status: Never smoker alcohol intake: never substance use type: does not use ROS ROS ED Review of Systems ROS Unobtainable: due to mental status EXAM Physical Exam Const Vital Signs: 07/04/23 09:12 Temperature 97.5 F L Temperature Source Temporal Pulse Rate 85 Respiratory Rate 16 Pulse Ox 97 Oxygen Delivery Method Room Air Positive well nourished and well developed General Appearance ED: well developed and NAD; Negative for cyanotic, diaphoretic or pallor HEENT Reports normocephalic, TM's clear and moist mucous membranes HEENT Narrative: There is no tenderness over the right or left temporal region. atraumatic Tympanic Membrane ED: Yes TM's clear Eyes PERRL and EOMs intact bilaterally Eyes Narrative: There is no nystagmus. There is no visual field cut. General Eye ED: Negative for pale conjunctiva or scleral icterus Neck no lymphadenopathy, supple, no meningeal signs and no JVD Resp normal respiratory effort and clear to auscultation bilaterally Cardio regular rate, regular rhythm, S1 normal heart sound, S2 normal heart sound and no murmurs GI non-tender and non-distended Auscultation: normoactive bowel sounds Back/Spine no CVA tenderness Thoracic Spine / Upper Back: Negative for thoracic spinal tenderness Lumbar Spine / Lower Back: Negative for lumbar spinal tenderness Extremity normal to inspection, full ROM and normal capillary refill General Extremety ED: Negative for edema General Extremity: Negative for edema Neuro oriented x3, CN's II-XII intact bilaterally and no sensory deficits noted Neuro Narrative: Patient has equivocal Babinski on the left. There is no clonus right or left. [place] Coma Scale: document GCS findings Spontaneous Obeys Commands Confused 14 Sensorium / Orientation: awake Motor Exam: strength 5/5 throughout Psych Mood & Affect: depressed Skin General Skin Exam: Negative for elasticity normal, turgor normal, jaundice or pallor Lesions: no lesions Rashes: no rashes MDM MDM MDM Narrative Medical decision making narrative: Differential diagnosis would include vascular headache, intracranial bleed, temporal arteritis, tension headache. History is limited due to the fact she has dementia. CT was obtained to assess for evidence of sinusitis or intracranial bleed. CBC does white count differential. Electrolyte panel was obtained determine renal function in the event that his CT angio is required. Lab Data Attestation: I reviewed the patient's lab results. Lab results narrative: CBC is normal. Sed rate is normal. Basic metabolic panel slight elevation of glucose 124 with a normal CO2 and anion gap. Labs: Laboratory Results - last 24 hr 07/04/23 09:20 WBC 8.7 RBC 3.81 L Hgb 12.0 Hct 37.6 MCV 98.7 MCH 31.5 MCHC 31.9 L RDW Std Deviation 49.3 H RDW Coeff of Cassandra 13.5 Plt Count 163 MPV 12.4 H Immature Gran % (Auto) 0.500 Neut % (Auto) 84.9 H Lymph % (Auto) 6.7 L Mcculloch % (Auto) 7.2 Eos % (Auto) 0.2 Baso % (Auto) 0.5 Absolute Neuts (auto) 7.4 Absolute Lymphs (auto) 0.58 L Nucleated RBC % 0 Differential Comment SCANNED ESR 19 Sodium 137 Potassium 3.5 Chloride 103 Carbon Dioxide 28.0 Anion Gap 6 BUN 19 H Creatinine 0.88 Estim Creat Clear Calc 44.19 Est GFR (MDRD) Af Amer 79 Est GFR (MDRD) Non-Af 65 BUN/Creatinine Ratio 21.5 H Glucose 124 H Calcium 8.8 Radiography Diagnostic Testing: Clinical Impression(s) from Imaging Studies Brain CT 07/04/23 09:49 IMPRESSION: Chronic involutional changes of the brain. Mild sinusitis. Electronically Signed: Yang Bolden MD at 10:57 EST , Treatment and Re-Evaluation Narrative: Patient was reassessed at 07/25/2001. Patient's headache is resolved. was made aware of the CAT scan results and laboratory results. Plan is to discharge to home. Discharge Plan Triage Chief Complaint: Headache ED Provider: Al Bassett Dx/Rx/DC Orders Clinical Impression: Acute headache, Dementia, HTN (hypertension) Instructions: ED Pain, Acute, Uncertain Cause Prescriptions: No Action lisinopril 20 MG tablet 20 mg PO BID levothyroxine 100 MCG tablet 88 mcg PO DAILY calcium carbonate 500 MG tablet 500 mg PO DAILY@0800 cyanocobalamin (vitamin B-12) 500 MCG tablet 1,000 mcg PO DAILY@0800 aspirin 81 mg Tablet,Delayed Release (Dr/Ec) 81 mg PO DAILY duloxetine 20 mg capsule,delayed release(DR/EC) 20 mg PO DAILY multivitamin [Daily Multi-Vitamin] Tablet 1 tab PO DAILY Primary Care Provider: Antonella Loyola Referrals: Antonella Loyola DO [Primary Care Provider] - As Needed Disposition Disposition: Home, Self Care What to do if you have Problems For any increased pain, shortness of breath, bleeding, nausea or vomiting, chestpain, or any unexpected problems, contact your Primary Care Provider. Call [facility] ([phone]) or report to the closest Emergency Room. Call 911 if necessary. 07/04/23 1111 <Electronically signed by Al Bassett MD> Cosigner Signature (if applicable): CC: Dr. Antonella Loyola DO ~ Signed [facility] Work Phone: Evaluation note Note Date & Type Note Facility Evaluation note No assessment information availa ble [facility] Work Phone: Evaluation note Note Date & Type Note Facility Evaluation note Diagnosis Onset Date Degenerative spondylolisthesis acute [facility] Work Phone: Evaluation note Note Date & Type Note Facility Evaluation note Diagnosis Onset Date Degenerative spondylolisthesis acute Degenerative spondylolisthesis acute Spinal stenosis at L4-L5 level acute [facility] Work Phone: Hospital Discharge instructions Note Date & Type Note Facility Hospital Discharge instructions Additional Instructions Use [id number] medications like Claritin is an antihistamine. You may also use a decongestant such as Coricidin HBP. Avoid use of pseudoephedrine or products that will elevate her blood pressure. You may use the nasal steroid 1 spray per nostril per day for up to 5 days. [facility] Work Phone: Family History No Family History Records Found Relationship Condition Age at Onset Recorded Date/T moose Unknown Family History?Diabe jens, Heart Disease Unknown August 09, 2018 2:51am Family History?Diabe jens, Heart Disease Unknown August 09, 2018 2:51am Family History?No pe rtinent history Unknown August 09, 2018 2:43am Relationship Condition Age at Onset Recorded Date/T moose Unknown Family History?Diabe jens, Heart Disease Unknown August 09, 2018 2:51am Family History?Diabe jens, Heart Disease Unknown August 09, 2018 2:51am Family History?Diabe jens, Heart Disease Unknown November 23, 2022 12:11pm Family History?No pe rtinent history Unknown August 09, 2018 2:43am Relationship Condition Age at Onset Recorded Date/T moose Unknown Family History?Diabe jens, Heart Disease Unknown August 09, 2018 1:51am Family History?Diabe jens, Heart Disease Unknown August 09, 2018 1:51am Family History?Diabe jens, Heart Disease Unknown January 26, 2023 11:08am Family History?No pe rtinent history Unknown August 09, 2018 1:43am Advance Directives No Advanced Directives Records Found Advance Directive Response Recorded Date/ Time Living Will Yes March 20 5:10am Power of Battery Hand Yes March 20 021 5:10am Advance Directive Response Recorded Date/ Time Name of Medical Power of Battery Hand PHILL Chi May 27, 2022 6:52pm Living Will Yes May 27 6:52pm Power of Battery Hand Yes May 27, 2022 6:52pm Advance Directive Response Recorded Date/ Time Living Will Yes May 27 6:52pm Power of Battery Hand Yes May 27, 2022 6:52pm Advance Directive Response Recorded Date/ Time Living Will Yes November 23, 2022 12 :11pm Power of Battery Hand Yes November 23, 2022 12:11pm Advance Directive Response Recorded Date/ Time Living Will Yes July 04 023 9:20am Power of Battery Hand Yes July 04, 2023 9:20am Name of Medical Power of Battery Hand July 04, 2023 9:20am Advance Directive Response Recorded Date/ Time Name of Medical Power of Battery Hand July 04, 2023 9:20am Living Will No July 04 023 6:04pm Power of Battery Hand No July 04, 2023 6:04pm Chief Complaint and Reason for Visit Chief Complaint LT LEG VENOUS INSUFF ICIENCY & EDEMA Chief Complaint LT LEG VENOUS INSUFF ICIENCY & EDEMA HEADACHE Chief Complaint LUMBER SPINE RM 6 Spondylolisthesis, site unspecified Reason for Visit Degenerative spondyl olisthesis Chief Complaint LUMBER SPINE RM 6 Spondylolisthesis, site unspecified LUMBER SPINE Reason for Visit Degenerative spondyl olisthesis Degenerative spondylolisthesis Spinal stenosis at L4-L5 level Chief Complaint WRIGHT Chief Complaint WRIGHT HEADACHE Summary Purpose Additional Source Comments Goals (unrecognized section and content) Goals may be documented in a n alternate sectionGoals may be documented in an alternate sectionGoals may be documented in an alternate sectionGoals may be documented in an alternate sectionGoals may be documented in an alternate sectionGoals may be documented in an alternate sectionGoals may be documented in an alternate sectionGoals may be documented in an alternate sectionGoals may be documented in an alternate section Care Teams (unrecognized sec tion and content) Team Status: Active Member Role Status Dates Dr. Antonella Loyola DO Family Provider Active Dr. Antonella Loyola DO Primary Care Provider Active Team Status: Inactive Member Role Status Dates Dr. Antonella Loyola DO Primary Care Provider, Referring P rovider Active Dr. Bernard Ewing , DO Attending Provider Active Team Status: Inactive Member Role Status Dates Dr. Antonella Loyola DO Primary Care Provider Active Dr. Yaya Villagran MD Attending Provider Active Team Status: Inactive Member Role Status Dates Dr. Antonella Loyola DO Primary Care Provider Active Dr. Bernard Ewing , DO Attending Provider, Referring P rovider Active Team Status: Inactive Member Role Status Dates Dr. Antonella Loyola DO Primary Care Provide r, Attending Provider, Referring Provider Active Team Status: Inactive Member Role Status Dates Dr. Antonella Loyola DO Primary Care Provider Active Dr. Al Bassett MD Emergency Provider Active Team Status: Inactive Member Role Status Dates Dr. Antonella Loyola DO Primary Care Provider Active Marcos Beckford MD Referring Provider, Emergency Provid er Active INFORMATION SOURCE (unrecogn ized section and content) DATE CREATED AUTHOR 10/30/2024 [facility] FOR RECORDS PERTAINING TO PATIENTS WHO ARE OR HAVE BEEN ENROLLED IN A CHEMICAL DEPENDENCY/SUBSTANCEABUSE PROGRAM, SOME INFORMATION MAY BE OMITTED. This clinical summary was aggregated from multiple sources. Caution should be exercised in using it in the provision of clinical care. This summary normalizes information from multiple sources, and as a consequence, information in this document may materially change the coding, format and clinical context of patient data. In addition, data may be omitted in some cases. CLINICAL DECISIONS SHOULD BE BASED ON THE PRIMARY CLINICAL RECORDS. [employer] provides no warranty or guarantee of the accuracy or completeness of information in this document.
--- OUTSIDE RECORDS SUMMARY | 2025-01-20 14:56 | XMS RPT_ITS | CCD ---
Author Organization [facility] Care Team Providers Care Die Sinker Name Role Phone Dr. Antonella Loyola Primary Care Provider Dr. Antonella Loyola Referring Provider [phone] Bernard Ewing Attending Provider Dr. Yaya [...] Referring Unavailable Miguel Mariee Attending Unavailable Malys, Antnoella Primary Care Unavailable Malys, Antonella Referring Unavailable [...] Facility Oncology Visit Reporton Oncology Visit Report [facility] [place] [address] OFFICE VISIT Date of Service: 10/29/24 1322 MR#: [id number] Acct: [id number] Name: ESTRADA MURO Rep #: [id number] : 1940 From: Cecilia Campbell NP SCHOOL SERVICES OFFICER -C Age/Sex: 84/F Location: [facility] [place] Status: Signed HPI Subjective Date of Service [...] present Additional Findings: None Breast Marker Study: [id number] ER: >95% MO: 0% Her2: 2+ (equivocal) Ki67:5% Negative for overexpression of GSF8evg by FISH April 04, 2024 left breast [...] Ancillary studies: Previously performed on same tumor ([id number] / [id number]). ER: Positive, >95% MO: Negative, 0%, Her2 annie: 2+ by immunohistochemistry [...] 19.7 20.0 (more content not included)... Normal [facility] CBC W/Diff, Automatedon 01-0 8-2024 Absolute Lymph 1.55 X10 3/uL Normal 0.83-4.51 [facility] Comment on above: Performed By: #### L 506.1000, L100.0100, L500.4050, L501.2300 ####[facility] [address] [place], [address] Absolute Neut 4.6 X10 3/uL Normal 2.0-7.7 [facility] Comment on above: Performed By: #### L 506.1000, L100.0100, L500.4050, L501.2300 ####[facility] [address] [place], [address] Basophils/100 WBC (Bld) 0.7 % Normal 0-1 [facility] Comment on above: Performed By: #### L 506.1000, L100.0100, L500.4050, L501.2300 ####[facility] [address] [place], [address] Eosinophils/100 WBC (Bld) 0.9 % Normal 0-5 [facility] Comment on above: Performed By: #### L 506.1000, L100.0100, L500.4050, L501.2300 ####[facility] [address] [place], [address] Erythrocyte distribution width (RBC) [Ratio] 13.5 % Normal 11.6-14.6 [facility] Comment on above: Performed By: #### L 506.1000, L100.0100, L500.4050, L501.2300 ####[facility] [address] [place], [address] Hematocrit (Bld) [Volume fraction] 35.1 % Low 37-47 [facility] Comment on above: Performed By: #### L 506.1000, L100.0100, L500.4050, L501.2300 ####[facility] [address] [place], [address] Hemoglobin (Bld) [Mass/Vol] 11.7 g/dL Low 12.0-15.0 [facility] Comment on above: Performed By: #### L 506.1000, L100.0100, L500.4050, L501.2300 ####[facility] [address] [place], [address] IG% 0.400 Normal 0.0-0.9 [facility] Comment on above: Result Comment: IG% - Immature Granulocytes (promyelocytes, myelocytes and metamyelocytes) > 1% indicates that a LEFT SHIFT is Present. Performed By: #### L 506.1000, L100.0100, L500.4050, L501.2300 ####[facility] [address] [place], [address] Lymphocytes/100 WBC (Bld) 23.0 % Normal 19-41 [facility] Comment on above: Performed By: #### L 506.1000, L100.0100, L500.4050, L501.2300 ####[facility] [address] [place], [address] MCH (RBC) [Entitic mass] 31.9 pg Normal 27.0-32.0 [facility] Comment on above: Performed By: #### L 506.1000, L100.0100, L500.4050, L501.2300 ####[facility] [address] [place], [address] MCHC (RBC) [Mass/Vol] 33.3 g/dL Normal 32-36 [facility] Comment on above: Performed By: #### L 506.1000, L100.0100, L500.4050, L501.2300 ####[facility] [address] [place], [address] MCV (RBC) [Entitic vol] 95.6 fL Normal 81-99 [facility] Comment on above: Performed By: #### L 506.1000, L100.0100, L500.4050, L501.2300 ####[facility] [address] [place], [address] Monocytes/100 WBC (Bld) 6.4 % Normal 0-10 [facility] Comment on above: Performed By: #### L 506.1000, L100.0100, L500.4050, L501.2300 ####[facility] [address] [place], [address] Neutrophils/100 WBC (Bld) 68.6 % Normal 47-70 [facility] Comment on above: Performed By: #### L 506.1000, L100.0100, L500.4050, L501.2300 ####[facility] [address] [place], [address] Nucleated RBC (Bld) [#/Vol] 0 10*3/uL Normal 0-5 [facility] Comment on above: Performed By: #### L 506.1000, L100.0100, L500.4050, L501.2300 ####[facility] [address] [place], [address] Platelet mean volume (Bld) [Entitic vol] 11.6 fL Normal 6.2-12.0 [facility] Comment on above: Performed By: #### L 506.1000, L100.0100, L500.4050, L501.2300 ####[facility] [address] [place], [address] Platelets (Bld) [#/Vol] 188 10*3/uL Normal 150-450 [facility] Comment on above: Performed By: #### L 506.1000, L100.0100, L500.4050, L501.2300 ####[facility] [address] [place], [address] RBC (Bld) [#/Vol] 3.67 10*6/uL Low 4.2-5.4 [facility] Comment on above: Performed By: #### L 506.1000, L100.0100, L500.4050, L501.2300 ####[facility] [address] [place], [address] RDW SD 47.7 fl High 35.1-43.9 [facility] Comment on above: Performed By: #### L 506.1000, L100.0100, L500.4050, L501.2300 ####[facility] [address] [place], [address] WBC (Bld) [#/Vol] 6.7 10*3/uL Normal 4.4-11.0 [facility] Comment on above: Performed By: #### L 506.1000, L100.0100, L500.4050, L501.2300 ####[facility] [address] [place], [address] Comprehensive Metabolic Prof [facility] 08-01-2024 Albumin [Mass/Vol] 3.7 g/dL Normal 3.2-5.0 [facility] Comment on above: Performed By: #### L 506.1000, L100.0100, L500.4050, L501.2300 ####[facility] [address] [place], [address] Albumin/Globulin [Mass ratio] 1.1 {ratio} Normal 0.9-2.4 [facility] Comment on above: Performed By: #### L 506.1000, L100.0100, L500.4050, L501.2300 ####[facility] [address] [place], [address] ALK P 70 U/L Normal 45-117 [facility] Comment on above: Performed By: #### L 506.1000, L100.0100, L500.4050, L501.2300 ####[facility] [address] [place], [address] ALT [Catalytic activity/Vol] 13 U/L Normal 13-56 [facility] Comment on above: Performed By: #### L 506.1000, L100.0100, L500.4050, L501.2300 ####[facility] [address] [place], [address] AST [Catalytic activity/Vol] 16 U/L Normal 15-37 [facility] Comment on above: Performed By: #### L 506.1000, L100.0100, L500.4050, L501.2300 ####[facility] [address] [place], [address] Bilirubin [Mass/Vol] 0.30 mg/dL Normal 0.20-1.00 [facility] Comment on above: Result Comment: For patients on eltrombopag therapy, use of Dimension [place] TBIL is not recommended. Performed By: #### L 506.1000, L100.0100, L500.4050, L501.2300 ####[facility] [address] [place], [address] BUN/CRE 25.7 RATIO High 10-20 [facility] Comment on above: Performed By: #### L 506.1000, L100.0100, L500.4050, L501.2300 ####[facility] [address] [place], [address] CA,Total 9.1 mg/dL Normal 8.5-10.1 [facility] Comment on above: Performed By: #### L 506.1000, L100.0100, L500.4050, L501.2300 ####[facility] [address] [place], [address] Chloride [Moles/Vol] 103 mmol/L Normal 98-107 [facility] Comment on above: Performed By: #### L 506.1000, L100.0100, L500.4050, L501.2300 ####[facility] [address] [place], [address] CO2 [Moles/Vol] 31.0 mmol/L Normal 21.0-32.0 [facility] Comment on above: Performed By: #### L 506.1000, L100.0100, L500.4050, L501.2300 ####[facility] [address] [place], [address] Creatinine [Mass/Vol] 0.97 mg/dL Normal 0.55-1.02 [facility] Comment on above: Result Comment: The validity of the calculated GFR GFRAA in patients over 70 years has not been determined. Clinical correlation is essential. Performed By: #### L 506.1000, L100.0100, L500.4050, L501.2300 ####[facility] [address] [place], [address] EST GFR - AA 70 mL/min Normal >60 [facility] Comment on above: Result Comment: Afri can [place] Citizen GFR Calc Performed By: #### L 506.1000, L100.0100, L500.4050, L501.2300 ####[facility] [address] [place], [address] GAP 6 Normal 5-15 [facility] Comment on above: Performed By: #### L 506.1000, L100.0100, L500.4050, L501.2300 ####[facility] [address] [place], [address] GFR/1.73 sq M.predicted among non-blacks MDRD (S/P/Bld) [Vol rate/Area] 58 mL/min/{1.73_m2} Low >60 [facility] Comment on above: Result Comment: Non- GFR Calc Performed By: #### L 506.1000, L100.0100, L500.4050, L501.2300 ####[facility] [address] [place], [address] Globulin (S) [Mass/Vol] 3.4 g/dL Normal 2.2-4.2 [facility] Comment on above: Performed By: #### L 506.1000, L100.0100, L500.4050, L501.2300 ####[facility] [address] [place], [address] Glucose [Mass/Vol] 123 mg/dL High 74-106 [facility] Comment on above: Result Comment: Fast ing Glucose result from 100 to 125 mg/dL suggests IMPAIRED HOMEOSTASIS per A.D.A. criteria. Performed By: #### L 506.1000, L100.0100, L500.4050, L501.2300 ####[facility] [address] [place], [address] Potassium [Moles/Vol] 3.7 mmol/L Normal 3.5-5.1 [facility] Comment on above: Performed By: #### L 506.1000, L100.0100, L500.4050, L501.2300 ####[facility] [address] [place], [address] Sodium [Moles/Vol] 140 mmol/L Normal 136-145 [facility] Comment on above: Performed By: #### L 506.1000, L100.0100, L500.4050, L501.2300 ####[facility] [address] [place], [address] T PROT 7.1 g/dL Normal 6.4-8.2 [facility] Comment on above: Performed By: #### L 506.1000, L100.0100, L500.4050, L501.2300 ####[facility] [address] [place], [address] Urea nitrogen [Mass/Vol] 25 mg/dL High 7-18 [facility] Comment on above: Performed By: #### L 506.1000, L100.0100, L500.4050, L501.2300 ####[facility] [address] [place], [address] Oncology Visit Reporton Oncology Visit Report [facility] [address] [place] [address] OFFICE VISIT Date of Service: 08/01/24 1358 MR#: [id number] Acct: [id number] Name: ESTRADA MURO Rep #: [id number] : 1940 From: Cecilia Campbell NP SCHOOL SERVICES OFFICER -C Age/Sex: 83/F [place] [facility] [place]: Signed HPI Subjective Date of Service [...] present Additional Findings: None Breast Marker Study: [id number] ER: >95% MO: 0% Her2: 2+ (equivocal) Ki67:5% Negative for overexpression of UNB4abk by FISH April 04, 2024 left breast [...] Ancillary studies: Previously performed on same tumor ([id number] / [id number]). ER: Positive, >95% MO: Negative, 0%, Her2 annie: 2+ by immunohistochemistry [...] breast, muscle ache/stiffness, urinary complaints, jaw pain. [facility] Medical History Osteopenia Invasive ductal carcinoma of [...] 19.2 19 (more content not included)... Normal [facility] Phosphoruson 08-01-2024 Phosphate [Mass/Vol] 3.4 mg/dL Normal 2.5-4.9 [facility] Comment on above: Performed By: #### L 506.1000, L100.0100, L500.4050, L501.2300 ####[facility] [address] [facility] [place], [id number] Vitamin D,25 Hydroxyon 08-01 Vitamin D 25-OH 34.3 ng/mL Normal [facility] Comment on above: Result Comment: Analisa min D 25(OH) Status Range Deficiency <20 ng/mL (50nmol/L) Insufficiency 20 - 30 ng/mL (50 - 75 nmol/L) Sufficiency 30 - 100 ng/mL (75 - 250 nmol/L) Toxicity >100 ng/mL (>250 nmol/L) Performed By: #### L 506.1000, L100.0100, L500.4050, L501.2300 ####[facility] [address] [facility] [place], [address] Oncology Visit Reporton Oncology Visit Report [facility] [address] [place] [address] OFFICE VISIT Date of Service: 04/30/24 1445 MR#: [id number] Acct: [id number] Name: ESTRADA MURO Rep #: [id number] : 1940 From: Laurence Mayer MD Age/Sex: 83/F [place] [facility] [place] Status: Signed HPI Subjective Date of Service [...] present Additional Findings: None Breast Marker Study: [id number] ER: >95% MO: 0% Her2: 2+ (equivocal) Ki67:5% Negative for overexpression of QSY4itb by FISH April 04, 2024 left breast [...] muscle: No skeletal muscle present Histologic Grade ([place] grade): Glandular/tubular differentiation score: 2 Nuclear pleomorphism [...] Ancillary studies: Previously performed on same tumor ([id number] / [id number]). ER: Positive, >95% MO: Negative, 0%, Her2 annie: 2+ by immunohistochemistry and not amplified (1.1) by in situ hybridization Ki67: 5% Clinical history: Mass of breast PATHOLOGIC STAGE: T1c Nx Mx Treatment summary and response: March 2024 left breast lumpectomy. [facility] Medical History Wears hearing aid Wears glasses [...] Medications ???Medicati (more content not included)... Normal [facility] Surgery Visit Reporton 04-30 Surgery Visit Report [facility] [address] [place] [address] OFFICE VISIT Date of Service: 04/30/24 MR#: [id number] Acct: [id number] Name: ESTRADA MURO Rep #: [id number] : 1940 Provider: KASSANDRA skaggs Age/Sex: 83/F Location: [facility] Status: Signed Intake Vital Signs 04/04/24 09:43 [...] Z98.890 Invasive ductal carcinoma of breast C50.919 [facility] Medical History Wears hearing aid Wears glasses [...] Loyola DO; Dr. Miguel Mariee MD Normal [facility] Surgery Visit Reporton 04-16 Surgery Visit Report [facility] [address] [place] [address] OFFICE VISIT Date of Service: 04/16/24 MR#: [id number] Acct: [id number] Name: ESTRADA MURO Rep #: [id number] : 1940 Provider: Dr. 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 Antonella Loyola, DO Normal [facility] Discharge Instructionon 03-25 Discharge Instruction [facility] Medical Records Department [address] [facility] [place] [address] Instructions for Home/Discharge Instructions 04/04/24 1214 MR#: [id number] Acct: [id number] Name: ESTRADA MURO Rep #: [id number] : 1940 83 From: Miguel Mariee MD PCP: Dr. Antonella Loyola, DO Status:DEP [facility] Discharge Instructions Diet Discharge Diet: No restrictions [...] Care Provider: Antonella Loyola Instructions Print Language: Israeli Discharge Orders/Prescriptions Prescriptions: Continued levothyroxine [Synthroid] 88 [...] MD CC: Dr. Antonella Loyola DO Signed [facility] MR/POSTOP.[facility] 04-04-2024 MR/POSTOP.[facility] Medical Records Department [address] [place] [address] Anesthesia Postop Eval I 04/04/24 1145 MR#: [id number] Acct: [id number] Name: ESTRADA MURO Rep #: [id number] : 1940 83 From: Edgar Tovar MD PCP: Dr. Antonella Loyola DO Status:REG SDC Y Race: C Location: [place] [address] Anesthesia: Postop Eval I Current Vital Signs [...] Tovar MD Cosigner Signature: Date CC: Signed [facility] MR/CILHCINV2wc 04-04-2024 MR/POSTOPAN2 [facility] Medical Records Department [address] [place] [address] Anesthesia Postop Eval II 04/04/24 1239 MR#: [id number] Acct: [id number] Name: ESTRADA MURO Rep #: [id number] : 1940 83 From: Huey Damico MD PCP: Dr. Antonella Loyola, DO Status:REG SDC Y Race: C Location: [facility]- Anesthesia Postop Eval I Sum Postop [...] Huey Guillaume Signature: Date CC: Signed Normal [facility] Operative Reporton Operative Report [facility] Medical Records Department [address] [place] [address] Operative Report 04/04/24 1211 MR#: [id number] Acct: [id number] Name: ESTRADA MURO Rep #: [id number] : 1940 83 From: Miguel Mariee MD PCP: Dr. Antonella Loyola, DO Status:[facility] Location: [place] [address] Report of Operation Date of Procedure: 04/04/24 Pre-Operative Diagnosis: Left breast cancer Post-Operative Diagnosis: Same Surgery/Procedure Performed:: Left breast lumpectomy Description of Surgical Findings:: ??? Firm tissue along the deep margin but remaining cavity demonstrated no palpable irregularities ??? Specimen oriented and marked with suture short superior long lateral Surgeon: Miguel Mariee purchasing director: Diamond Macias Type of Anesthesia: MAC/Supplemental/Local Anesthesiologist: [...] Used: None Complications None Procedures Integumentary 16xxx-193xx: 59635 Partial mastectomy 04/04/24 1322 Cosigner Signature (if applicable): CC: Dr. Antonella Loyola DO; Dr. Miguel Mariee MD Signed Normal [facility] Surgery Specimen Level Von 0 04-04-2024 Surgery Specimen Level V Patient Age/Sex Location Account Attending Physician ESTRADA MURO 83/F [facility] [id number] Dr. Miguel Mariee MD Specimen: [id number] Received: 04/05/24 Status: YFN [place] Num: [id number] Spec Type: BREAST Subm Dr: Dr. Miguel [...] Location Account Attending Physician ESTRADA MURO 83/F [facility] [id number] Dr. Miguel Mariee MD Additional pathologic findings: Changes of previous biopsy, mild fibrocystic change and associated microcalcifications Ancillary studies: Previously performed on same tumor ([id number] / [id number]). ER: Positive, >95% MO: Negative, 0%, Her2 annie: 2+ by immunohistochemistry and not amplified (1.1) by in situ hybridization Ki67: 5% Clinical history: Mass of breast PATHOLOGIC STAGE: T1c Nx Mx The above summary is in compliance with [employer] [place] Citizen Pathology (CAP) Cancer Protocols Checklist and [place] Citizen Joint Committee on Cancer (AJCC), Staging Manual, [...] cassettes after additional fixation. PATI/ 04/05/2024 TC:0 CPT:21197 Patient Age/Sex Location Account Attending Physician ESTRADA MURO 83/F [facility] [id number] Dr. Miguel Mariee MD Signed (signature on file) Dr. Levi Rose DO 04/09/24 1256 [facility] Comment on above: Performed By: #### P SUV #### [facility] [address] [place], [address] Surgery Visit Reporton 03-29 Surgery Visit Report [facility] [address] [place] [address] OFFICE VISIT Date of Service: 03/29/24 MR#: [id number] Acct: [id number] Name: ESTRADA MURO Rep #: [id number] : 1940 Provider: Dr. Miguel chatterjee MD Age/Sex: 83/F Location: [facility] Status: Signed Intake Vital Signs 03/14/24 15:28 [...] stent, palpitati (more content not included)... Normal [facility] Oncology Visit Reporton 02-23 Oncology Visit Report [facility] [place] [facility] [address] [place] [address] [place] [address] OFFICE VISIT Date of Service: 03/14/24 1520 MR#: [id number] Acct: [id number] Name: ESTRADA MRUO Bhanu Rep #: [id number] : 1940 From: Laurence Mayer MD Age/Sex: 83/F [place] [facility] [place] Status: Signed HPI Subjective Date of Service [...] present Additional Findings: None Breast Marker Study: [id number] ER: >95% MO: 0% Her2: 2+ (equivocal) Ki67:5% Negative for overexpression of PWH7pqx by FISH [facility] Medical History Osteoporosis Anxiety Depression Non-smoker Migraines [...] fred fabian (more content not included)... Normal [facility] ER (initial)on 02-29-2024 ER (initial) ---- Patient Age/Sex Location Account Attending Physician ESTRADA MURO 83/F [facility] [id number] Dr. Miguel Mariee MD Specimen: [id number] Received: 03/02/24-105 Status: YFN [place] Num: [id number] Spec Type: IMMUNO Subm Dr: Dr. Miguel Mariee MD THIS IS A CORRECTED REPORT 03/06/24-1213 PHYSICIAN INSTITUTION [place] [address] SPECIMEN INFORMATION: Tissue Source: Left breast biopsy Clinical Info: Abnormal mammogram Specimen Number: [id number] CPT code: 49718,04134j8,64011p5 METHODOLOGY: Deparaffinized sections of prefer/formalin-fixed tissue or PAP/DQ stained slides are incubated with monoclonal/polyclonal antibodies/oligonucleoti de probes. Localization is made via biotin free immunoperoxidase method. Appropriate controls are performed and reacted as expected. Results on target cell population are indicated in the following table: RESULTS: ANTIBODY / CLONE RESULT P53 (DO-7) positive, wild type pattern Ki-67 (30-9) positive, 5% CK8 (80upigM44) positive CK5-6 (D5 1684) negative Calponin-1 (DP047R) negative P40 (BC28) negative E-Cad (ECH-6) positive MOC-31 (4561) negative MORPHOMETRIC ANALYSIS ER (clone 6F11) >95, strong intensity MO (clone 16/1E2) 0% Her-2Neu (clone CB11) 2+ The test for HER 2 is performed on formalin-fixed paraffin embedded tissue using the CB11 mouse monoclonal antibody (NeoAccel). A 3+ staining pattern is interpreted as positive and is defined as a strong membranous staining involving the entire cell membrane in over 30% of invasive tumor cells. A similar weak staining pattern (2+) involving 10% of the tumor cells is interpreted as equivocal. HER 2 follow-up testing by FISH is recommended for all equivocal results. Reference: [place] Society of Clinical Oncology and the College of [place] Citizen Pathology (J. Clin. Oncol. 23: 118-145, 2007). Fixative Used: Formalin; Duration of Fixation: 28 Hours.; Sample Adequate: Yes Patient Age/Sex Location Account Attending Physician ESTRADA MURO 83/F [facility] [id number] Dr. 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 Positive for estrogen receptors (favorable prognostic indicator). Negative for progesterone receptors (favorable prognostic indicator). Equivocal for overexpression of MCM0lof. 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 Positive for estrogen receptors (favorable prognostic indicator). Negative for progesterone receptors (favorable prognostic indicator). Negative for overexpression of LIF9rcw. AM/mr 03/06/2024 IN SITU HYBRIDIZATION (ROSINA) FOR [...] Factor Receptor 2 Testing in Breast Cancer: [place] [employer] of [employer] On[employer] / [employer] [place] [employer] Clinical Practice Guideline Update. J Clin Oncol 31:8954-5123, 2013. Patient Age/Sex Location Account Attending Physician ESTRADA MURO 83/F LABSPEC [id number] Dr. Miguel Mariee MD --- (more content not included)... Normal [facility] Comment on above: Performed By: #### P ER #### [facility] [place], [address] Surgery Specimen Level Genet 02-29-2024 Surgery Specimen Level IV Patient Age/Sex Location Account Attending Physician ESTRADA MURO 83/F LABSPEC [id number] Dr. Miguel Mariee MD Specimen: [id number] Received: 02/29/24 Status: YFN [place] Num: [id number] Spec Type: BREAST BX Subm Dr: Dr. [...] present Additional Findings: None Breast Marker Study: SI40-225 ER: >95% MO: 0% Her2: 2+ (equivocal) Ki67:5% The above summary is in compliance with [employer] [place] [employer] (CAP) Cancer Protocols Checklist and [place] Joint Committee on Cancer (AJCC), Staging Manual, 8th Ed. Case has been reviewed in consultation with Dr. Carrillo who concurs with the above diagnosis. IDC:JORGE Patient Age/Sex Location Account Attending Physician ESTRADA MURO 83/F LABSPEC [id number] Dr. Miguel Mraiee MD MICROSCOPIC DESCRIPTION Slides are reviewed. GROSS DESCRIPTION Received in fixative is one container labeled with the patient's name and designated Left breast tissue. The specimen consists of multiple elongated fragments of rosenthal-yellow fibroadipose tissue measuring in aggregate 1.5 x 0.5 x 0.1cm. The entire specimen is submitted in one cassette. JORGE/ 03/01/2024 TC:0 CPT:09939 Patient Age/Sex Location Account Attending Physician [facility] 83[id number] Dr. Miguel Mariee MD Signed (signature on file) Dr. Levi Rose DO 03/05/24 1212 Normal [facility] Comment on above: Performed By: #### P SUIV ####[facility] [address] [place], [place], [address] Surgery Visit Reporton 02-28 Surgery Visit Report [facility] [address] [place] [address] OFFICE VISIT Date of Service: 02/29/24 MR#: [id number] Acct: [id number] Name: ESTRADA MURO Rep #: [id number] : 1940 Provider: Dr. Miguel chatterjee MD Age/Sex: 83/F Location: [facility] Status: Signed Intake Vital Signs 02/22/24 10:23 [...] in the past year?: No (None disclosed) [facility] Medical History Anxiety Depression Non-smoker Migraines Thyroid [...] nipple. Office (more content not included)... Normal [facility] Breast Limited Unilateralon 02-24-2024 Breast Limited Unilateral [facility] [address] [place], [place] [address] Breast Limited Unilateral MR#: [id number] Acct: [id number] Name: ESTRADA MURO Rep #: [id number] : 1940 F 83 From: Yang fuchs MD PCP: Dr. Antonella Loyola, Status: [facility] Study: Breast Limited Unilateral Date of Exam: Exam# [id number] Ordering Dr: Miguel Mariee MD [id number] STUDY: ULTRASOUND BREAST - LEFT REASON FOR [...] 14:53 EDT Reading Location ID and State: [facility] / [place] , Service support , CC: Dr. Antonella Loyola DO; Dr. Miguel Mariee MD Wedding Planning Internship: Signed Normal [facility] Surgery Visit Reporton 02-21 Surgery Visit Report [facility] [address] [place] [address]. [address] [place] [address] OFFICE VISIT Date of Service: 02/22/24 MR#: [id number] Acct: [id number] Name: ESTRADA MURO Rep #: [id number] : 1940 Provider: Dr. Miguel chatterjee MD Age/Sex: 83/F Location: [facility] Status: Signed Intake Vital Signs 07/04/23 17:35 [...] o'clock posit (more content not included)... Normal [facility] Dexa Bone Density Studyon Dexa Bone Density Study [facility] [address] [place] [address] Dexa Bone Density Study MR#: [id number] Acct: [id number] Name: ESTRADA MURO Rep #: [id number] : 1940 F 83 From: Yang fuchs MD PCP: Dr. Antonella Loyola DO Status: REG CLI Study: Dexa Bone Density Study Date of Exam: 02/15/24 Exam# [id number] Ordering Dr: Antonella Loyola DO [id number] STUDY: DUAL ENERGY X-RAY ABSORPTIOMETRY / DXA [...] EDT , CC: Dr. Antonella Loyola DO Wedding Planning Internship: Signed Normal [facility] SCRN MAMM (CAD)W/DESIRAE BILATo n 02-15-2024 SCRN MAMM (CAD)W/DESIRAE BILAT [facility] [address] [place], [place] [address] SCRN MAMM (CAD)W/DESIRAE BILAT MR#: [id number] Acct: [id number] Name: ESTRADA MURO Rep #: [id number] : 1940 F 83 From: Yang fuchs MD PCP: Dr. Antonella Loyola DO Status: [facility] Study: SCRN MAMM (CAD)W/DESIRAE BILAT Date of Exam: 01/23 11/15 Exam# [id number] Ordering Dr: Antonella Loyola DO ADDENDUM by Dr. Yang Bolden MD on 02/16/24 at 0939 == ADDENDUM == [id number] This is an addendum report. Additional images [...] cc: Dr. Antonella Loyola, DO * Signed [id number] MAMMOGRAPHY - BILATERAL SCREENING REASON FOR EXAM: [...] delay biopsy of a clinically suspicious abnormality. [id number] Electronically Signed: Yang Bolden MD at 15:27 EDT Reading Location ID and State: [address] [place] [address] , Service support , CC: Dr. Antonella Loyola, Wedding Planning Internship: Signed Normal [facility] CBC W/Diff, Automatedon 12-23 Absolute Lymph 1.67 X10 3/uL Normal 0.83-4.51 [facility] Comment on above: Performed By: #### L 501.9520, L500.4050, L100.0100, L500.4100, L501.75321, L506.0400 #### [facility] [address] [place], [place], [address] Absolute Neut 3.7 X10 3/uL Normal 2.0-7.7 [facility] Comment on above: Performed By: #### L 501.9520, L500.4050, L100.0100, L500.4100, L501.25596, L506.0400 #### [facility] [address] [place], [address] Basophils/100 WBC (Bld) 0.7 % Normal 0-1 [facility] Comment on above: Performed By: #### L 501.9520, L500.4050, L100.0100, L500.4100, L501.42629, L506.0400 #### [facility] [address] [place], [address] Eosinophils/100 WBC (Bld) 1.7 % Normal 0-5 [facility] Comment on above: Performed By: #### L 501.9520, L500.4050, L100.0100, L500.4100, L501.78213, L506.0400 #### [facility] [address] [place], [address] Erythrocyte distribution width (RBC) [Ratio] 13.2 % Normal 11.6-14.6 [facility] Comment on above: Performed By: #### L 501.9520, L500.4050, L100.0100, L500.4100, L501.91960, L506.0400 #### [facility] [address] [place], [address] Hematocrit (Bld) [Volume fraction] 36.7 % Low 37-47 [facility] Comment on above: Performed By: #### L 501.9520, L500.4050, L100.0100, L500.4100, L501.05670, L506.0400 #### [facility] [address] [place], [address] Hemoglobin (Bld) [Mass/Vol] 11.5 g/dL Low 12.0-15.0 [facility] Comment on above: Performed By: #### L 501.9520, L500.4050, L100.0100, L500.4100, L501.27924, L506.0400 #### [facility] [address] [place], [address] IG% 0.200 Normal 0.0-0.9 [facility] Comment on above: Result Comment: IG% - Immature Granulocytes (promyelocytes, myelocytes and metamyelocytes) > 1% indicates that a LEFT SHIFT is Present. Performed By: #### L 501.9520, L500.4050, L100.0100, L500.4100, L501.39541, L506.0400 #### [facility] [address] [place], [address] Lymphocytes/100 WBC (Bld) 27.7 % Normal 19-41 [facility] Comment on above: Performed By: #### L 501.9520, L500.4050, L100.0100, L500.4100, L501.12787, L506.0400 #### [facility] [address] [place], [address] MCH (RBC) [Entitic mass] 31.6 pg Normal 27.0-32.0 [facility] Comment on above: Performed By: #### L 501.9520, L500.4050, L100.0100, L500.4100, L501.08378, L506.0400 #### [facility] [address] [place], [address] MCHC (RBC) [Mass/Vol] 31.3 g/dL Low 32-36 [facility] Comment on above: Performed By: #### L 501.9520, L500.4050, L100.0100, L500.4100, L501.58177, L506.0400 #### [facility] [address] [facility] [place], [address] MCV (RBC) [Entitic vol] 100.8 fL High 81-99 [facility] Comment on above: Performed By: #### L 501.9520, L500.4050, L100.0100, L500.4100, L501.74486, L506.0400 #### [facility] [address] [place], [address] Monocytes/100 WBC (Bld) 7.8 % Normal 0-10 [facility] Comment on above: Performed By: #### L 501.9520, L500.4050, L100.0100, L500.4100, L501.21031, L506.0400 #### [facility] [address] [place], [address] Neutrophils/100 WBC (Bld) 61.9 % Normal 47-70 [facility] Comment on above: Performed By: #### L 501.9520, L500.4050, L100.0100, L500.4100, L501.09487, L506.0400 #### [facility] [address] [place], [address] Nucleated RBC (Bld) [#/Vol] 0 10*3/uL Normal 0-5 [facility] Comment on above: Performed By: #### L 501.9520, L500.4050, L100.0100, L500.4100, L501.50428, L506.0400 #### [facility] [address] [place], [address] Platelet mean volume (Bld) [Entitic vol] 12.6 fL High 6.2-12.0 [facility] Comment on above: Performed By: #### L 501.9520, L500.4050, L100.0100, L500.4100, L501.67703, L506.0400 #### [facility] [address] [place], [address] Platelets (Bld) [#/Vol] 172 10*3/uL Normal 150-450 [facility] Comment on above: Performed By: #### L 501.9520, L500.4050, L100.0100, L500.4100, L501.96920, L506.0400 #### [facility] [address] [place], [address] RBC (Bld) [#/Vol] 3.64 10*6/uL Low 4.2-5.4 [facility] Comment on above: Performed By: #### L 501.9520, L500.4050, L100.0100, L500.4100, L501.79488, L506.0400 #### [facility] [address] [place], [address] RDW SD 48.9 fl High 35.1-43.9 [facility] Comment on above: Performed By: #### L 501.9520, L500.4050, L100.0100, L500.4100, L501.96072, L506.0400 #### [facility] [address] [place], [address] WBC (Bld) [#/Vol] 6.0 10*3/uL Normal 4.4-11.0 [facility] Comment on above: Performed By: #### L 501.9520, L500.4050, L100.0100, L500.4100, L501.81348, L506.0400 #### [facility] [address] [place], [address] Comprehensive Metabolic [facility] 01-09-2024 Albumin [Mass/Vol] 3.6 g/dL Normal 3.2-5.0 [facility] Comment on above: Performed By: #### L 501.9520, L500.4050, L100.0100, L500.4100, L501.19603, L506.0400 ####[facility] [address] [place], [address] Albumin/Globulin [Mass ratio] 1.1 {ratio} Normal 0.9-2.4 [facility] Comment on above: Performed By: #### L 501.9520, L500.4050, L100.0100, L500.4100, L501.39449, L506.0400 ####[facility] [address] [place], [address] ALK P 49 U/L Normal 45-117 [facility] Comment on above: Performed By: #### L 501.9520, L500.4050, L100.0100, L500.4100, L501.46273, L506.0400 ####[facility] [address] [place], [address] ALT [Catalytic activity/Vol] 15 U/L Normal 13-56 [facility] Comment on above: Performed By: #### L 501.9520, L500.4050, L100.0100, L500.4100, L501.09781, L506.0400 ####[facility] [address] [place], [address] AST [Catalytic activity/Vol] 18 U/L Normal 15-37 [facility] Comment on above: Performed By: #### L 501.9520, L500.4050, L100.0100, L500.4100, L501.84333, L506.0400 ####[facility] [address] [place], [address] Bilirubin [Mass/Vol] 0.50 mg/dL Normal 0.20-1.00 [facility] Comment on above: Result Comment: For patients on eltrombopag therapy, use of Dimension [place] TBIL is not recommended. Performed By: #### L 501.9520, L500.4050, L100.0100, L500.4100, L501.87881, L506.0400 ####[facility] [address] [place], [address] BUN/CRE 23.1 RATIO High 10-20 [facility] Comment on above: Performed By: #### L 501.9520, L500.4050, L100.0100, L500.4100, L501.17599, L506.0400 ####[facility] [address] [place], [address] CA,Total 9.1 mg/dL Normal 8.5-10.1 [facility] Comment on above: Performed By: #### L 501.9520, L500.4050, L100.0100, L500.4100, L501.46258, L506.0400 ####[facility] [address] [place], [address] Chloride [Moles/Vol] 108 mmol/L High 98-107 [facility] Comment on above: Performed By: #### L 501.9520, L500.4050, L100.0100, L500.4100, L501.67615, L506.0400 ####[facility] [address] [place], [address] CO2 [Moles/Vol] 30.0 mmol/L Normal 21.0-32.0 [facility] Comment on above: Performed By: #### L 501.9520, L500.4050, L100.0100, L500.4100, L501.82602, L506.0400 ####[facility] [address] [place], [address] Creatinine [Mass/Vol] 1.04 mg/dL High 0.55-1.02 [facility] Comment on above: Result Comment: The validity of the calculated GFR GFRAA in patients over 70 years has not been determined. Clinical correlation is essential. Performed By: #### L 501.9520, L500.4050, L100.0100, L500.4100, L501.56807, L506.0400 ####[facility] [address] [place], [address] EST GFR - AA 65 mL/min Normal >60 [facility] Comment on above: Result Comment: Afri can [place] GFR Calc Performed By: #### L 501.9520, L500.4050, L100.0100, L500.4100, L501.58650, L506.0400 ####[facility] [address] [place], [address] GAP 4 Low 5-15 [facility] Comment on above: Performed By: #### L 501.9520, L500.4050, L100.0100, L500.4100, L501.19076, L506.0400 ####[facility] [address] [place], [address] GFR/1.73 sq M.predicted among non-blacks MDRD (S/P/Bld) [Vol rate/Area] 54 mL/min/{1.73_m2} Low >60 [facility] Comment on above: Result Comment: Non- GFR Calc Performed By: #### L 501.9520, L500.4050, L100.0100, L500.4100, L501.70568, L506.0400 ####[facility] [address] [place], [address] Globulin (S) [Mass/Vol] 3.2 g/dL Normal 2.2-4.2 [facility] Comment on above: Performed By: #### L 501.9520, L500.4050, L100.0100, L500.4100, L501.50212, L506.0400 ####[facility] [address] [place], [address] Glucose [Mass/Vol] 57 mg/dL Low 74-106 [facility] Comment on above: Performed By: #### L 501.9520, L500.4050, L100.0100, L500.4100, L501.60384, L506.0400 ####[facility] [address] [place], [address] Potassium [Moles/Vol] 3.8 mmol/L Normal 3.5-5.1 [facility] Comment on above: Performed By: #### L 501.9520, L500.4050, L100.0100, L500.4100, L501.76840, L506.0400 ####[facility] [address] [place], [address] Sodium [Moles/Vol] 142 mmol/L Normal 136-145 [facility] Comment on above: Performed By: #### L 501.9520, L500.4050, L100.0100, L500.4100, L501.93224, L506.0400 ####[facility] [address] [place], [address] T PROT 6.8 g/dL Normal 6.4-8.2 [facility] Comment on above: Performed By: #### L 501.9520, L500.4050, L100.0100, L500.4100, L501.09547, L506.0400 ####[facility] [address] [place], [address] Urea nitrogen [Mass/Vol] 24 mg/dL High 7-18 [facility] Comment on above: Performed By: #### L 501.9520, L500.4050, L100.0100, L500.4100, L501.32425, L506.0400 ####[facility] [address] [place], [address] Free T3on 01-09-2024 Free T3 [Mass/Vol] 2.3 pg/mL Normal 2.18-3.98 [facility] Comment on above: Performed By: #### L 501.9520, L500.4050, L100.0100, L500.4100, L501.81210, L506.0400 ####[facility] [address] [place], [address] Lipid Profileon 01-09-2024 Cholesterol [Mass/Vol] 195 mg/dL Normal [address] [facility] Comment on above: Result Comment: <200 mg/dL Desirable 200-240 mg/dL Borderline >240 mg/dL High Risk Performed By: #### L 501.9520, L500.4050, L100.0100, L500.4100, L501.56282, L506.0400 ####[facility] [address] [place], [address] Cholesterol in HDL [Mass/Vol] 69 mg/dL Normal [facility] Comment on above: Result Comment: The drugs N-Acetylcysteine and Metamizole may falsely depress this assay. Reference Range HDL <40 mg/dL Low HDL Cholesterol HDL >or= 60 mg/dL High HDL Cholesterol Performed By: #### L 501.9520, L500.4050, L100.0100, L500.4100, L501.68124, L506.0400 ####[facility] [address] [place], [address] Cholesterol in LDL [Mass/Vol] 107 mg/dL Normal 0-130 [facility] Comment on above: Performed By: #### L 501.9520, L500.4050, L100.0100, L500.4100, L501.27974, L506.0400 ####[facility] [address] [place], [address] Cholesterol in VLDL [Mass/Vol] 19 mg/dL Normal 5-40 [facility] Comment on above: Performed By: #### L 501.9520, L500.4050, L100.0100, L500.4100, L501.22017, L506.0400 ####[facility] [address] [place], [address] Triglyceride [Mass/Vol] 93 mg/dL Normal [facility] Comment on above: Result Comment: The drugs N-Acetylcysteine and Metamizole may falsely depress this assay. Serum Triglycerides Reference Interval Normal <150 mg/dL Borderline high 150 - 199 mg/dL High 200 - 499 mg/dL Very High > or = 500 mg/dL Performed By: #### L 501.9520, L500.4050, L100.0100, L500.4100, L501.65743, L506.0400 ####[facility] [address] [place], [address] T4 Free Directon 01-09-2024 T4 FREE DIRECT 1.21 ng/dL Normal 0.76-1.46 [facility] Comment on above: Performed By: #### L 501.9520, L500.4050, L100.0100, L500.4100, L501.94670, L506.0400 ####[facility] [address] [place], [address] Thyroid Stim Hormone (TSH)on 01-09-2024 TSH 0.46 uIU/mL Normal 0.358-3.74 [facility] Comment on above: Performed By: #### L 501.9520, L500.4050, L100.0100, L500.4100, L501.34771, L506.0400 ####[facility] [address] [facility] [place], [address] Absolute lymphocyte countOrd ered By: Al Bassett on 07-04-2023 Lymphocytes Auto (Unsp spec) [#/Vol] 0.58 10*3/uL 0.83-4.51 [facility] Basophil percentageOrdered B y: Al Bassett on 07-04-2023 Basophils/100 WBC (Bld) 0.5 % 0-1 [facility] Chloride [Moles/Vol] 103 mmol/L 98-107 [facility] Eosinophils/100 WBC (Bld) 0.2 % 0-5 [facility] Glucose [Mass/Vol] 124 mg/dL 74-106 [facility] Comment on above: Fasting Glucose resu lt from 100 to 125 mg/dL suggests IMPAIRED HOMEOSTASIS per A.D.A. criteria. Neutrophils (Bld) [#/Vol] 7.4 10*3/uL 2.0-7.7 [facility] Neutrophils/100 WBC (Bld) 84.9 % 47-70 [facility] Potassium [Moles/Vol] 3.5 mmol/L 3.5-5.1 [facility] Sodium [Moles/Vol] 137 mmol/L 136-145 [facility] WBC (Bld) [#/Vol] 8.7 10*3/uL 4.4-11.0 [facility] Blood erythrocytes count (nu mber/volume)Ordered By: Al Bassett on 07-04-2023 RBC (Bld) [#/Vol] 3.81 10*6/uL 4.2-5.4 [facility] Blood hemoglobin measurement (mass/volume)Ordered By: Al Bassett on 07-04-2023 Hemoglobin (Bld) [Mass/Vol] 12.0 g/dL 12.0-15.0 [facility] Blood lymphocytes/100 leukoc ytesOrdered By: Al Bassett on 07-04-2023 Lymphocytes/100 WBC (Bld) 6.7 % 19-41 [facility] Blood manual differential co mment interpretation (narrative result)Ordered By: Al Bassett on 07-04-2023 Manual differential comment Jason (Bld) [Interp] SCANNED [facility] Blood monocytes/100 leukocyt esOrdered By: Al Bassett on 07-04-2023 Monocytes/100 WBC (Bld) 7.2 % 0-10 [facility] Blood platelet mean volumeOr dered By: Al Bassett on 07-04-2023 Platelet mean volume (Bld) [Entitic vol] 12.4 fL 6.2-12.0 [facility] Determination of erythrocyte mean corpuscular volume (MCV)Ordered By: Al Bassett on 07-04-2023 MCV (RBC) [Entitic vol] 98.7 fL 81-99 [facility] Erythrocyte sedimentation ra teOrdered By: Alangelia Bassett on 07-04-2023 ESR (Bld) [Velocity] 19 mm/h 0-30 [facility] Hematocrit Auto (Bld) [Volum e fraction]Ordered By: Alangelia Bassett on 07-04-2023 Hematocrit (Bld) [Volume fraction] 37.6 % 37-47 [facility] - Chemistry and C hemistry - challengeOrdered By: Alangelia Bassett on 07-04-2023 CO2 [Moles/Vol] 28.0 mmol/L 21.0-32.0 [facility] Urea nitrogen/Creatinine [Mass ratio] 21.5 mg/mg 10-20 [facility] - Hematology and Cell countsOrdered By: Alangelia Bassett on 07-04-2023 Erythrocyte distribution width (RBC) [Entitic vol] 49.3 fL 35.1-43.9 [facility] Erythrocyte distribution width (RBC) [Ratio] 13.5 % 11.6-14.6 [facility] Immature granulocytes/100 WBC (Bld) 0.500 % 0.0-0.9 [facility] Comment on above: IG% - Immature Granu locytes (promyelocytes, myelocytes and metamyelocytes) > 1% indicates that a LEFT SHIFT is Present. MCH (RBC) [Entitic mass] 31.5 pg 27.0-32.0 [facility] Nucleated RBC/100 WBC (Bld) [Ratio] 0 % 0-5 [facility] MCHC Auto (RBC) [Mass/Vol]Or dered By: Al Bassett on 07-04-2023 MCHC (RBC) [Mass/Vol] 31.9 g/dL 32-36 [facility] No Panel InformationOrdered By: Alangelia Bassett on 07-04-2023 Estimated Creatinine Clearance Calc 44.19 ml/min [facility] Estimated GFR (MDRD) Amer 79 mL/min >60 [facility] Comment on above: GFR Calc Estimated GFR (MDRD) Non-Af Amer 65 mL/min >60 [facility] Comment on above: Non- GFR Calc Platelets bldOrdered By: Alangelia Bassett on 07-04-2023 Platelets (Bld) [#/Vol] 163 10*3/uL 150-450 [facility] Serum or plasma calcium enrrique urement (mass/volume)Ordered By: Alangelia Bassett on 07-04-2023 Calcium [Mass/Vol] 8.8 mg/dL 8.5-10.1 [facility] Serum or plasma creatinine m easurement (mass/volume)Ordered By: Al Bassett on 07-04-2023 Creatinine [Mass/Vol] 0.88 mg/dL 0.55-1.02 [facility] Comment on above: The validity of the calculated GFR & GFRAA in patients over 70 years has not been determined. Clinical correlation is essential. Serum or plasma urea nitroge n measurement (mass/volume)Ordered By: [facility] on 07-04-2023 Urea nitrogen [Mass/Vol] 19 mg/dL 7-18 [facility] Thin prep Papanicolaou smear with manual screeningOrdered By: Al [facility] on 07-04-2023 Thin prep Papanicolaou smear with manual screening 6 5-15 [facility] Absolute lymphocyte countOrd ered By: Antonella Loyola on 01-19-2023 Lymphocytes Auto (Unsp spec) [#/Vol] 1.59 10*3/uL 0.83-4.51 [facility] Basophil percentageOrdered B y: Antonella Milla on 01-19-2023 Basophils/100 WBC (Bld) 1.1 % 0-1 [facility] Bilirubin [Mass/Vol] 0.30 mg/dL 0.20-1.00 [facility] Comment on above: For patients on eltr ombopag therapy, use of Dimension [place] TBIL is not recommended. Chloride [Moles/Vol] 107 mmol/L 98-107 [facility] Cholesterol [Mass/Vol] 208 mg/dL <[address] [facility] Comment on above: <200 mg/dL Desirable 200-240 mg/dL Borderline >240 mg/dL High Risk Eosinophils/100 WBC (Bld) 1.3 % 0-5 [facility] Glucose [Mass/Vol] 79 mg/dL 74-106 [facility] Neutrophils (Bld) [#/Vol] 3.4 10*3/uL 2.0-7.7 [facility] Neutrophils/100 WBC (Bld) 61.4 % 47-70 [facility] Potassium [Moles/Vol] 4.0 mmol/L 3.5-5.1 [facility] Protein [Mass/Vol] 6.8 g/dL 6.4-8.2 [facility] Sodium [Moles/Vol] 139 mmol/L 136-145 [facility] Triglyceride [Mass/Vol] 67 mg/dL <199 [facility] Comment on above: The drugs N-Acetylcy steine and Metamizole may falsely depress this assay.Serum Triglycerides Reference Interval Normal <150 mg/dL Borderline high 150 - 199 mg/dL High 200 - 499 mg/dL Very High > or = 500 mg/dL WBC (Bld) [#/Vol] 5.5 10*3/uL 4.4-11.0 [facility] Blood erythrocytes count (nu mber/volume)Ordered By: Antonella Loyola on 01-19-2023 RBC (Bld) [#/Vol] 3.68 10*6/uL 4.2-5.4 [facility] Blood hemoglobin measurement (mass/volume)Ordered By: Antonella Loyola on 01-19-2023 Hemoglobin (Bld) [Mass/Vol] 11.8 g/dL 12.0-15.0 [facility] Blood lymphocytes/100 leukoc ytesOrdered By: Antonella Loyola on 01-19-2023 Lymphocytes/100 WBC (Bld) 28.8 % 19-41 [facility] Blood monocytes/100 leukocyt esOrdered By: Antonella Loyola on 01-19-2023 Monocytes/100 WBC (Bld) 7.2 % 0-10 [facility] Blood platelet mean volumeOr dered By: Antonella Loyola on 01-19-2023 Platelet mean volume (Bld) [Entitic vol] 11.5 fL 6.2-12.0 [facility] Determination of erythrocyte mean corpuscular volume (MCV)Ordered By: Antonella Loyola on 01-19-2023 MCV (RBC) [Entitic vol] 100.0 fL 81-99 [facility] Hematocrit Auto (Bld) [Volum e fraction]Ordered By: Antonella Loyola on 01-19-2023 Hematocrit (Bld) [Volume fraction] 36.8 % 37-47 [facility] Laboratory - Chemistry and C hemistry - challengeOrdered By: Antonella Loyola on 01-19-2023 ALP [Catalytic activity/Vol] 58 U/L 45-117 [facility] ALT [Catalytic activity/Vol] 15 U/L 13-56 [facility] CO2 [Moles/Vol] 29.0 mmol/L 21.0-32.0 [facility] Cobalamin (Vitamin B12) [Mass/Vol] 1610 pg/mL 211-911 [facility] Free T4 [Mass/Vol] 0.89 ng/dL 0.76-1.46 [facility] Globulin (S) [Mass/Vol] 3.6 g/dL 2.2-4.2 [facility] Urea nitrogen/Creatinine [Mass ratio] 20.4 mg/mg 10-20 [facility] Laboratory - Hematology and Cell countsOrdered By: Antonella Loyola on 01-19-2023 Erythrocyte distribution width (RBC) [Entitic vol] 50.5 fL 35.1-43.9 [facility] Erythrocyte distribution width (RBC) [Ratio] 13.7 % 11.6-14.6 [facility] Immature granulocytes/100 WBC (Bld) 0.200 % 0.0-0.9 [facility] Comment on above: IG% - Immature Granu locytes (promyelocytes, myelocytes and metamyelocytes) > 1% indicates that a LEFT SHIFT is Present. MCH (RBC) [Entitic mass] 32.1 pg 27.0-32.0 [facility] Nucleated RBC/100 WBC (Bld) [Ratio] 0 % 0-5 [facility] MCHC Auto (RBC) [Mass/Vol]Or dered By: Antonella Loyola on 01-19-2023 MCHC (RBC) [Mass/Vol] 32.1 g/dL 32-36 [facility] No Panel InformationOrdered By: Antonella Loyola on 01-19-2023 Estimated GFR (MDRD) Amer 74 mL/min >60 [facility] Comment on above: GFR Calc Estimated GFR (MDRD) Non-Af Amer 61 mL/min >60 [facility] Comment on above: Non- GFR Calc Free Triiodothyronine (T3) pg/dL 1.7 pg/mL 2.18-3.98 [facility] Thyroid Stimulating Hormone (TSH) 1.87 uIU/mL 0.358-3.74 [facility] Platelets bldOrdered By: Aurelia Loyola on 01-19-2023 Platelets (Bld) [#/Vol] 240 10*3/uL 150-450 [facility] Serum or plasma albumin enrrique urement (mass/volume)Ordered By: Antonella Loyola on 01-19-2023 Albumin [Mass/Vol] 3.2 g/dL 3.2-5.0 [facility] Serum or plasma albumin/glob ulin mass ratioOrdered By: Antonella Loyola on 01-19-2023 Albumin/Globulin [Mass ratio] 0.9 {ratio} 0.9-2.4 [facility] Serum or plasma calcium enrrique urement (mass/volume)Ordered By: Antonella Loyola on 01-19-2023 Calcium [Mass/Vol] 9.0 mg/dL 8.5-10.1 [facility] Serum or plasma cholesterol in HDL measurement (mass/volume)Ordered By: Antonella Loyola on 01-19-2023 Cholesterol in HDL [Mass/Vol] 79 mg/dL >40 [facility] Comment on above: The drugs N-Acetylcy steine and Metamizole may falsely depress this assay. Reference Range HDL <40 mg/dL Low HDL Cholesterol HDL >or= 60 mg/dL High HDL Cholesterol Serum or plasma cholesterol in VLDL measurement (mass/volume)Ordered By: Antonella Loyola on 01-19-2023 Cholesterol in VLDL [Mass/Vol] 13 mg/dL 5-40 [facility] Serum or plasma creatinine m easurement (mass/volume)Ordered By: Antonella Loyola on 01-19-2023 Creatinine [Mass/Vol] 0.93 mg/dL 0.55-1.02 [facility] Comment on above: The validity of the calculated GFR & GFRAA in patients over 70 years has not been determined. Clinical correlation is essential. Serum or plasma low density lipoprotein (LDL) cholesterol measurement (mass/volume)Ordered By: Antonella Loyola on 01-19-2023 Cholesterol in LDL [Mass/Vol] 116 mg/dL 0-130 [facility] Serum or plasma urea nitroge n measurement (mass/volume)Ordered By: Antonella Loyola on 01-19-2023 Urea nitrogen [Mass/Vol] 19 mg/dL 7-18 [facility] Thin prep Papanicolaou smear with manual screeningOrdered By: Antonella Milla on 01-19-2023 Thin prep Papanicolaou smear with manual screening 18 U/L 15-37 [facility] Thin prep Papanicolaou smear with manual screening 3 5-15 [facility] Absolute lymphocyte counton 05-27-2022 Lymphocytes Auto (Unsp spec) [#/Vol] 0.34 10*3/uL 0.83-4.51 [facility] Work Phone: Basophil percentageon 2021 Basophil percentage 0 SEEN /hpf 0-5 [facility] Work Phone: Basophils/100 WBC (Bld) 0.3 % 0-1 [facility] Work Phone: Chloride [Moles/Vol] 102 mmol/L 98-107 [facility] Work Phone: Eosinophils/100 WBC (Bld) 2.0 % 0-5 [facility] Work Phone: Glucose [Mass/Vol] 108 mg/dL 74-106 [facility] Work Phone: Comment on above: Fasting Glucose resu lt from 100 to 125 mg/dL suggests IMPAIRED HOMEOSTASIS per A.D.A. criteria. Neutrophils (Bld) [#/Vol] 4.9 10*3/uL 2.0-7.7 [facility] Work Phone: Neutrophils/100 WBC (Bld) 81.2 % 47-70 [facility] Work Phone: Potassium [Moles/Vol] 3.5 mmol/L 3.5-5.1 [facility] Work Phone: Sodium [Moles/Vol] 138 mmol/L 136-145 [facility] Work Phone: WBC (Bld) [#/Vol] 6.0 10*3/uL 4.4-11.0 [facility] Work Phone: Bilirubin Test strip Ql (U)o n 05-27-2022 Bilirubin Ql (U) Negative Negative [facility] Work Phone: [phone] Blood erythrocytes count (nu mber/volume)on 05-27-2022 RBC (Bld) [#/Vol] 3.59 10*6/uL 4.2-5.4 [facility] Work Phone: [phone] Blood hemoglobin measurement (mass/volume)on 05-27-2022 Hemoglobin (Bld) [Mass/Vol] 11.5 g/dL 12.0-15.0 [facility] Work Phone: Blood lymphocytes/100 leukoc yteson 05-27-2022 Lymphocytes/100 WBC (Bld) 5.6 % 19-41 [facility] Work Phone: [phone] Blood manual differential co mment interpretation (narrative result)on 05-27-2022 Manual differential comment Jason (Bld) [Interp] SCANNED [facility] Work Phone: Comment on above: LYMPHOPENIA NOTED Blood monocytes/100 leukocyt eson 05-27-2022 Monocytes/100 WBC (Bld) 10.6 % 0-10 [facility] Work Phone: Blood platelet mean volumeon 05-27-2022 Platelet mean volume (Bld) [Entitic vol] 11.1 fL 6.2-12.0 [facility] Work Phone: [phone] Determination of erythrocyte mean corpuscular volume (MCV)on 05-27-2022 MCV (RBC) [Entitic vol] 95.8 fL 81-99 [facility] Work Phone: [phone] Hematocrit Auto (Bld) [Volum e fraction]on 05-27-2022 Hematocrit (Bld) [Volume fraction] 34.4 % 37-47 [facility] Work Phone: [phone] Ketones Test strip Ql (U)on 05-27-2022 Ketones Ql (U) 5 mg/dl Negative [facility] Work Phone: Laboratory - Chemistry and C hemistry - challengeon 05-27-2022 CO2 [Moles/Vol] 29.0 mmol/L 21.0-32.0 [facility] Work Phone: [phone] Urea nitrogen/Creatinine [Mass ratio] 18.5 mg/mg 10-20 [facility] Work Phone: [phone] Laboratory - Hematology and Cell countson 05-27-2022 Erythrocyte distribution width (RBC) [Entitic vol] 46.7 fL 35.1-43.9 [facility] Work Phone: [phone] Erythrocyte distribution width (RBC) [Ratio] 13.2 % 11.6-14.6 [facility] Work Phone: [phone] Immature granulocytes/100 WBC (Bld) 0.300 % 0.0-0.9 [facility] Work Phone: [phone] Comment on above: IG% - Immature Granu locytes (promyelocytes, myelocytes and metamyelocytes) > 1% indicates that a LEFT SHIFT is Present. MCH (RBC) [Entitic mass] 32.0 pg 27.0-32.0 [facility] Work Phone: [phone] Nucleated RBC/100 WBC (Bld) [Ratio] 0 % 0-5 [facility] Work Phone: [phone] MCHC Auto (RBC) [Mass/Vol]on 05-27-2022 MCHC (RBC) [Mass/Vol] 33.4 g/dL 32-36 [facility] Work Phone: [phone] Mucus LM Ql (Urine sed)on Mucus Ql (Urine sed) 0 SEEN /hpf [facility] Work Phone: [phone] Nitrite Test strip Ql (U)on 05-27-2022 Nitrite Ql (U) Negative Negative [facility] Work Phone: [phone] Panel Informationon 05-27 Estimated Creatinine Clearance Calc 48.22 ml/min [facility] Work Phone: [phone] Estimated GFR (MDRD) Amer 76 mL/min >60 [facility] Work Phone: [phone] Comment on above: GFR Calc Estimated GFR (MDRD) Non-Af Amer 63 mL/min >60 [facility] Work Phone: Comment on above: Non- GFR Calc Platelets bldon 05-27-2022 Platelets (Bld) [#/Vol] 205 10*3/uL 150-450 [facility] Work Phone: Protein Test strip Ql (U)on 05-27-2022 Protein Ql (U) Negative Negative [facility] Work Phone: Serum or plasma calcium enrrique urement (mass/volume)on 05-27-2022 Calcium [Mass/Vol] 9.1 mg/dL 8.5-10.1 [facility] Work Phone: Serum or plasma creatinine m easurement (mass/volume)on 05-27-2022 Creatinine [Mass/Vol] 0.92 mg/dL 0.55-1.02 [facility] Work Phone: Comment on above: The validity of the calculated GFR & GFRAA in patients over 70 years has not been determined. Clinical correlation is essential. Serum or plasma urea nitroge n measurement (mass/volume)on 05-27-2022 Urea nitrogen [Mass/Vol] 17 mg/dL 7-18 [facility] Work Phone: Squamous epithelial cells de tection in urine sediment by light microscopyon 05-27-2022 Epithelial cells.squamous LM Ql (Urine sed) 0 SEEN /hpf 5-10 [facility] Work Phone: Thin prep Papanicolaou smear with manual screeningon 05-27-2022 Thin prep Papanicolaou smear with manual screening 7 5-15 [facility] Work Phone: Urine blood detectionon RBC Ql (U) Negative Negative [facility] Work Phone: RBC Ql (U) 0 SEEN /hpf 0-5 [facility] Work Phone: Urine clarityon 05-27-2022 Clarity (U) Clear Clear [facility] Work Phone: Urine color determinationon 05-27-2022 Color (U) Yellow Yellow [facility] Work Phone: Urine glucose detectionon Glucose Ql (U) Normal mg/dl Normal [facility] Work Phone: Urine leukocyte esterase det ection by dipstickon 05-27-2022 Leukocyte esterase Test strip Ql (U) Negative Negative [facility] Work Phone: Urine pHon 05-27-2022 pH (U) 7.0 [pH] 5.0 - 8.0 [facility] Work Phone: Urine sediment bacteria coun t by microscopy (number/high power field)on 05-27-2022 Bacteria LM.HPF (Urine sed) [#/Area] 0 /[HPF] None Seen [facility] Work Phone: Urine specific gravity measu rementon 05-27-2022 Specific gravity (U) [Rel density] 1.010 1.002-1.030 [facility] Work Phone: Urobilinogen Auto test strip Ql (U)on 05-27-2022 Urobilinogen Ql (U) Normal mg/dl Normal [facility] Work Phone: Absolute lymphocyte counton 01-01-2022 Lymphocytes Auto (Unsp spec) [#/Vol] 1.64 10*3/uL 0.83-4.51 [facility] Work Phone: Basophil percentageon 2021 Basophil percentage 0-5 SEEN /hpf 0-[address] [facility] Work Phone: Basophils/100 WBC (Bld) 0.7 % 0-1 [facility] Work Phone: Bilirubin [Mass/Vol] 0.30 mg/dL 0.20-1.00 [facility] Work Phone: Comment on above: For patients on eltr ombopag therapy, use of Dimension [place] TBIL is not recommended. Chloride [Moles/Vol] 107 mmol/L 98-107 [facility] Work Phone: Eosinophils/100 WBC (Bld) 1.8 % 0-5 [facility] Work Phone: Glucose [Mass/Vol] 81 mg/dL 74-106 [facility] Work Phone: Neutrophils (Bld) [#/Vol] 3.6 10*3/uL 2.0-7.7 [facility] Work Phone: Neutrophils/100 WBC (Bld) 60.7 % 47-70 [facility] Work Phone: Potassium [Moles/Vol] 4.1 mmol/L 3.5-5.1 [facility] Work Phone: Protein [Mass/Vol] 6.7 g/dL 6.4-8.2 [facility] Work Phone: Sodium [Moles/Vol] 140 mmol/L 136-145 [facility] Work Phone: WBC (Bld) [#/Vol] 6.0 10*3/uL 4.4-11.0 [facility] Work Phone: Bilirubin Test strip Ql (U)o n 01-01-2022 Bilirubin Ql (U) Negative Negative [facility] Work Phone: Blood erythrocytes count (nu mber/volume)on 01-01-2022 RBC (Bld) [#/Vol] 3.57 10*6/uL 4.2-5.4 [facility] Work Phone: Blood hemoglobin measurement (mass/volume)on 01-01-2022 Hemoglobin (Bld) [Mass/Vol] 11.2 g/dL 12.0-15.0 [facility] Work Phone: Blood lymphocytes/100 leukoc yteson 01-01-2022 Lymphocytes/100 WBC (Bld) 27.5 % 19-41 [facility] Work Phone: Blood monocytes/100 leukocyt eson 01-01-2022 Monocytes/100 WBC (Bld) 9.0 % 0-10 [facility] Work Phone: Blood platelet mean volumeon 01-01-2022 Platelet mean volume (Bld) [Entitic vol] 12.7 fL 6.2-12.0 [facility] Work Phone: [phone] Determination of erythrocyte mean corpuscular volume (MCV)on 01-01-2022 MCV (RBC) [Entitic vol] 98.0 fL 81-99 [facility] Work Phone: [phone] Erythrocyte sedimentation ra trent 01-01-2022 ESR (Bld) [Velocity] 16 mm/h 0-30 [facility] Work Phone: [phone] Hematocrit Auto (Bld) [Volum e fraction]on 01-01-2022 Hematocrit (Bld) [Volume fraction] 35.0 % 37-47 [facility] Work Phone: [phone] Ketones Test strip Ql (U)on 01-01-2022 Ketones Ql (U) Negative Negative [facility] Work Phone: [phone] Laboratory - Chemistry and C hemistry - challengeon 01-01-2022 ALP [Catalytic activity/Vol] 56 U/L 45-117 [facility] Work Phone: [phone] ALT [Catalytic activity/Vol] 20 U/L 13-56 [facility] Work Phone: [phone] CO2 [Moles/Vol] 29.0 mmol/L 21.0-32.0 [facility] Work Phone: [phone] Free T4 [Mass/Vol] 1.25 ng/dL 0.76-1.46 [facility] Work Phone: [phone] Globulin (S) [Mass/Vol] 3.3 g/dL 2.2-4.2 [facility] Work Phone: [phone] Urea nitrogen/Creatinine [Mass ratio] 25.0 mg/mg 10-20 [facility] Work Phone: [phone] Laboratory - Hematology and Cell countson 01-01-2022 Erythrocyte distribution width (RBC) [Entitic vol] 47.1 fL 35.1-43.9 [facility] Work Phone: Erythrocyte distribution width (RBC) [Ratio] 13.1 % 11.6-14.6 [facility] Work Phone: Immature granulocytes/100 WBC (Bld) 0.300 % 0.0-0.9 [facility] Work Phone: [phone] Comment on above: IG% - Immature Granu locytes (promyelocytes, myelocytes and metamyelocytes) > 1% indicates that a LEFT SHIFT is Present. MCH (RBC) [Entitic mass] 31.4 pg 27.0-32.0 [facility] Work Phone: Nucleated RBC/100 WBC (Bld) [Ratio] 0 % 0-5 [facility] Work Phone: [phone] MCHC Auto (RBC) [Mass/Vol]on 01-01-2022 MCHC (RBC) [Mass/Vol] 32.0 g/dL 32-36 [facility] Work Phone: Mucus LM Ql (Urine sed)on Mucus Ql (Urine sed) 0 SEEN /hpf [facility] Work Phone: Nitrite Test strip Ql (U)on 01-01-2022 Nitrite Ql (U) Negative Negative [facility] Work Phone: No Panel Informationon 01-01 Estimated GFR (MDRD) Amer 80 mL/min >60 [facility] Work Phone: Comment on above: GFR Calc Estimated GFR (MDRD) Non-Af Amer 66 mL/min >60 [facility] Work Phone: Comment on above: Non- GFR Calc Free Triiodothyronine (T3) pg/dL 2.3 pg/mL 2.18-3.98 [facility] Work Phone: [phone] Thyroid Stimulating Hormone (TSH) 0.22 uIU/mL 0.358-3.74 [facility] Work Phone: Platelets bldon 01-01-2022 Platelets (Bld) [#/Vol] 184 10*3/uL 150-450 [facility] Work Phone: Protein Test strip Ql (U)on 01-01-2022 Protein Ql (U) Negative Negative [facility] Work Phone: Serum or plasma C reactive p rotein measurement (mass/volume)on 01-01-2022 CRP [Mass/Vol] mg/L 0.0-3.0 [facility] Work Phone: Comment on above: C-Reactive Protein ( CRP) provides useful information for thediagnosis, therapy and monitoring of inflammatory processesand associated diseases. For the evaluation of Relative Riskfor Cardiovascular Disease, a High Sensitivity CRP (HSCRP)should be ordered. Serum or plasma albumin enrrique urement (mass/volume)on 01-01-2022 Albumin [Mass/Vol] 3.4 g/dL 3.2-5.0 [facility] Work Phone: Serum or plasma albumin/glob ulin mass ratioon 01-01-2022 Albumin/Globulin [Mass ratio] 1.0 {ratio} 0.9-2.4 [facility] Work Phone: Serum or plasma calcium enrrique urement (mass/volume)on 01-01-2022 Calcium [Mass/Vol] 8.8 mg/dL 8.5-10.1 [facility] Work Phone: Serum or plasma creatinine m easurement (mass/volume)on 01-01-2022 Creatinine [Mass/Vol] 0.88 mg/dL 0.55-1.02 [facility] Work Phone: Comment on above: The validity of the calculated GFR & GFRAA in patients over 70 years has not been determined. Clinical correlation is essential. Serum or plasma urea nitroge n measurement (mass/volume)on 01-01-2022 Urea nitrogen [Mass/Vol] 22 mg/dL 7-18 [facility] Work Phone: Serum or plasma uric acid me asurement (mass/volume)on 01-01-2022 Urate [Mass/Vol] 4.7 mg/dL 2.6-6.0 [facility] Work Phone: Comment on above: The drugs N-Acetylcy steine and Metamizole may falsely depress this assay. Squamous epithelial cells de tection in urine sediment by light microscopyon 01-01-2022 Epithelial cells.squamous LM Ql (Urine sed) 0-5 SEEN /hpf 5-10 [facility] Work Phone: Thin prep Papanicolaou smear with manual screeningon 01-01-2022 Thin prep Papanicolaou smear with manual screening 18 U/L 15-37 [facility] Work Phone: Thin prep Papanicolaou smear with manual screening 4 5-15 [facility] Work Phone: Urine blood detectionon 12-23-2021 RBC Ql (U) Negative Negative [facility] Work Phone: [phone] RBC Ql (U) 0 SEEN /hpf 0-5 [facility] Work Phone: Urine clarityon 01-01-2022 Clarity (U) Sl. Cloudy Clear [facility] Work Phone: Urine color determinationon 01-01-2022 Color (U) Yellow Yellow [facility] Work Phone: Urine glucose detectionon Glucose Ql (U) Normal mg/dl Normal [facility] Work Phone: Urine leukocyte esterase det ection by dipstickon 01-01-2022 Leukocyte esterase Test strip Ql (U) 25 /ul Negative [facility] Work Phone: Urine pHon 01-01-2022 pH (U) 6.5 [pH] 5.0 - 8.0 [facility] Work Phone: Urine sediment bacteria coun t by microscopy (number/high power field)on 01-01-2022 Bacteria LM.HPF (Urine sed) [#/Area] 1 /[HPF] None Seen [facility] Work Phone: Urine specific gravity measu rementon 01-01-2022 Specific gravity (U) [Rel density] 1.015 1.002-1.030 [facility] Work Phone: Urobilinogen Auto test strip Ql (U)on 01-01-2022 Urobilinogen Ql (U) Normal mg/dl Normal [facility] Work Phone: Culture, urine Bacteria identified Cx Nom (U) Corynebacterium jeikeium [facility] Work Phone: Bacteria identified Cx Nom (U) Corynebacterium urealyticum [facility] Work Phone: Bacteria identified Cx Nom (U) Mixed Culture [facility] Work Phone: Bacteria identified Cx Nom (U) Positive [facility] Work Phone: No Panel Information SARS-CoV-2 & FLU Antigen (Rapid) [facility] Work Phone: Vital Signs Date Time Vital Sign Value Performing Clinician Faci lity 07-04-2023 17:35-0500 Body height 177.8 cm [facility] 07-04-2023 17:35-0500 Body mass index (BMI) [Ratio] 18.3 kg/m2 [facility] 07-04-2023 17:35-0500 Body temperature 97.5 [degF] [facility] 07-04-2023 17:35-0500 Body weight 58.05 kg [facility] 07-04-2023 17:35-0500 Diastolic blood pressure 91 mm[Hg] [facility] 07-04-2023 17:35-0500 Heart rate 89 /min [facility] 07-04-2023 17:35-0500 Respiratory rate 16 /min [facility] 07-04-2023 17:35-0500 SaO2% (BldA) [Mass fraction] 96 % [facility] 07-04-2023 17:35-0500 Systolic blood pressure 170 mm[Hg] [facility] 07-04-2023 11:13-0500 Diastolic blood pressure 89 mm[Hg] [facility] 07-04-2023 11:13-0500 Heart rate 74 /min [facility] 07-04-2023 11:13-0500 Respiratory rate 16 /min [facility] 07-04-2023 11:13-0500 SaO2% (BldA) [Mass fraction] 97 % [facility] 07-04-2023 11:13-0500 Systolic blood pressure 161 mm[Hg] [facility] 07-04-2023 09:20-0500 Body mass index (BMI) [Ratio] 18.9 kg/m2 [facility] 07-04-2023 09:20-0500 Body weight 54.9 kg [facility] 07-04-2023 09:12-0500 Body height 170.18 cm [facility] 07-04-2023 09:12-0500 Body temperature 97.5 [degF] [facility] 11-23-2022 12:11-0400 Body height 170.[address] Antonella Loyola Work Phone: [facility] 11-03-2022 10:56-0400 Body height 170.[address] Antonella Loyola Work Phone: [facility] 11-03-2022 10:56-0400 Body mass index (BMI) [Ratio] 21 kg/m2 Dr. Antonella Loyola Work Phone: [facility] 11-03-2022 10:56-0400 Body weight 60.[address] Antonella Loyola Work Phone: [facility] 05-27-2022 22:19-0400 Diastolic blood pressure 72 mm[Hg] [facility] Work Phone: 05-27-2022 22:19-0400 Heart rate 76 /min [facility] Work Phone: 05-27-2022 22:19-0400 Respiratory rate 16 /min [facility] Work Phone: 05-27-2022 22:19-0400 SaO2% (BldA) [Mass fraction] 96 % [facility] Work Phone: 05-27-2022 22:19-0400 Systolic blood pressure 145 mm[Hg] [facility] Work Phone: 05-27-2022 18:59-0400 Body height 170.18 cm [facility] Work Phone: 05-27-2022 18:59-0400 Body mass index (BMI) [Ratio] 21.8 kg/m2 [facility] Work Phone: 05-27-2022 18:59-0400 Body weight 63.2 kg [facility] Work Phone: 05-27-2022 18:03-0400 Body temperature 97.8 [degF] [facility] Work Phone: Encounters Encounter Date Encounter Type Care Provider Facility Start: 10-29-2024 End: 10-29-2024 ambulatory Cecilia Shannan Facility:[facility] Start: 08-01-2024 End: 08-01-2024 ambulatory Cecilia Shannan Facility:[facility] Start: 04-30-2024 End: 04-30-2024 ambulatory Antonella Malys Facility:[facility] Start: 04-16-2024 End: 04-16-2024 ambulatory Antonella Malys [facility] Start: 04-04-2024 ambulatory Miguel Mariee [facility]: [facility] Start: 04-04-2024 End: 04-04-2024 ambulatory Miguel Mariee Facility:[facility] Start: 03-29-2024 End: 03-29-2024 ambulatory Antonella Malys [facility] Start: 03-14-2024 End: 03-14-2024 ambulatory Antonella Malys [facility] Start: 02-29-2024 End: 02-29-2024 ambulatory Antonella Malys [facility] Start: 02-29-2024 End: 02-29-2024 ambulatory Miguel Mariee Facility:[facility] Start: 02-24-2024 End: 02-24-2024 ambulatory Miguel Mariee Facility:[facility] Start: 02-22-2024 End: 02-22-2024 ambulatory Antonella Malys [facility] Start: 02-15-2024 End: 02-15-2024 ambulatory Antonella Malys Facility:[facility] Start: 01-09-2024 End: 01-09-2024 ambulatory Antonella Malys Facility:[facility] Start: 07-04-2023 End: 07-04-2023 Emergency department patient visit [facility] Work Phone: Start: 07-04-2023 End: 07-04-2023 Emergency department patient visit [facility] Work Phone: Start: 01-19-2023 End: 01-19-[address] Antonella Loyola Work Phone: [facility] Work Phone: Start: 01-19-2023 End: 01-19-[address] Antonella Loyola Work Phone: [facility] [place] Work Phone: Start: 11-24-2022 End: 11-24-[address] Antonella Loyola Work Phone: [facility] Work Phone: Start: 11-13-2022 End: 11-13-[address] Antonella Loyola Work Phone: [facility] Work Phone: Start: 11-13-2022 End: 11-13-[address] Antonella Loyola Work Phone: [facility] Start: 11-03-2022 End: 11-03-[address] Antonella Loyola Work Phone: [facility] Start: 05-27-2022 End: 05-27-2022 Emergency department patient visit [facility] Start: 04-22-2022 End: 04-22-2022 ambulatory [facility] Work Phone: Start: 04-22-2022 End: 04-22-2022 Patient encounter procedure [facility] [place] Start: 01-28-2022 End: 01-28-2022 Patient encounter procedure [facility] Start: 01-21-2022 End: 01-21-2022 Patient encounter procedure [facility] [place] Start: 01-01-2022 End: 01-01-2022 Patient encounter procedure [facility] [place] Procedures Date Procedure Procedure Detail Performing Clinician [...] Date Care Activity Detail Author Start: 07-04-2023 [facility] Start: 07-04-2023 [facility] Start: 11-24-2022 Patient referral [facility] Work Phone: Start: 01-01-2022 Bacteria identified in Urine by Culture Urine Culture [facility] Work Phone: Patient Education [facility] Work Phone: Patient referral [facility] Work Phone: Immunizations Immunization Date Immunization Notes Care Provider Philip clarke 05-03-2018 Influenza virus vaccine [facility] 08-02-2013 Influenza virus vaccine [facility] Payers Date Payer Category Payer Self-pay [id number] 2015 Private Health Insurance [id number] 2007 Medicare [id number] Unknown [id number] 2.16.8 [id number] Unknown [id number] 2.16.8 [id number] Unknown [id number] 2.16.8 [id number] Unknown [id number] 2.16.8 [id number] Unknown [id number] 2.16.8 [id number] Unknown [id number] 2.16.8 40.1.541876.3.579.2.462 Unknown [id number] 2.16.8 40.1.223443.3.579.2.462 Unknown [id number] 2.16.8 40.1.944900.3.579.2.462 Unknown [id number] 2.16.8 40.1.605221.3.579.2.462 Unknown [id number] 2.16.8 40.1.207892.3.579.2.462 Unknown [id number] 2.16.8 40.1.879389.3.579.2.462 Unknown [id number] 2.16.8 40.1.304535.3.579.2.462 Unknown [id number] 2.16.8 40.1.402951.3.579.2.462 Unknown [id number] 2.16.8 40.1.070881.3.579.2.462 Unknown [id number] 2.16.8 40.1.294050.3.579.2.462 Unknown [id number] 2.16.8 [id number] Social History Date Type Detail Facility Start: 03-20-2021 End: 07-04-2023 Tobacco smoking status NHIS Unknown if ever smoked [facility] Start: 08-09-2018 Rare [facility] Start: 08-09-2018 None [facility] Start: 09-10-2020 Spouse/ Signif icant Other [facility] Start: 08-10-2018 Non-smoker [facility] Start: 1940 Sex Assigned At Female [facility] Mental Status Date Assessment Result Facility 07-04-2023 Cognitive function Level Of Consciousness Awake [facility] Work Phone: 07-04-2023 Cognitive function Level Of Cons ciousness Awake;Appropriate;Follows Commands;Disoriented [facility] Work Phone: 05-27-2022 Cognitive function Appropriate;Cooperativ e [facility] Work Phone: Clinical Note 04-04-2024 Note Date & Type Note Facility 04-04-2024 Note [facility] Medical Records Department [address] [place] [address] History Physical Exam 04/04/24 1041 MR#: [id number] Acct: [id number] Name: ESTRADA MURO Rep #: [id number] : 1940 83 From: Miguel Mariee MD PCP: Dr. Antonella Loyola, Status:[facility] Location: [place] [address] History and Physical Date of Service: 03/29/24 MR#: [id number] Acct: [id number] Name: ESTRADA MURO Rep #: [id number] : 1940 Provider: Dr. Miguel Mariee MD Age/Sex: 83/F Location: [facility] Status: Signed Intake Vital Signs 03/14/2415:28 03/29/2408:07 [...] Breast: Yes ab (more content not included)... [facility] Discharge summary 07-04-2023 Note Date & Type Note Facility 07-04-2023 Discharge summary Note Date/Time July 04, 2023 6:26pm [facility] Medical Records Department [address] [place] [address] Emergency Department Summary 07/04/23 MR#: [id number] Acct: [id number] Name: ESTRADA MURO Rep #:[id number] : [...] sinus headache. They were told to use xsde-crs-vysqtho medications such as Claritin, and Coricidin HBP [...] if not improving Activity Restrictions/Additional Instructions: Use fwki-pku-xcgwpdc medications like Claritin is an antihistamine. You [...] your Primary Care Provider. Call [facility] ([phone]) or report to the closest Emergency Room. Call 911 if necessary. 07/04/231934 <Electronically signed by Marcos Beckford MD> Cosigner Signature (if applicable): CC: Dr. Antonella Loyola DO ~ Signed [facility] Work Phone: Discharge summary Note Date & Type Note Facility Discharge summary Note Date/Time July 04, 2023 10:06am [facility] Medical Records Department [address] [place] [address] Emergency Department Summary 07/04/23 MR#: [id number] Acct: [id number] Name: ESTRADA MURO Rep #:[id number] : [...] There is no clonus right or left. [place] Coma Scale: document GCS findings Spontaneous Obeys [...] 84.9 H Lymph % (Auto) 6.7 L [place] % (Auto) 7.2 Eos % (Auto) 0.2 [...] your Primary Care Provider. Call [facility] ([phone]) or report to the closest Emergency Room. Call 911 if necessary. 07/04/23 1111 <Electronically signed by Al Bassett MD> Cosigner Signature (if applicable): CC: Dr. Antonella Loyola DO ~ Signed [facility] Work Phone: Evaluation note Note Date & Type Note Facility Evaluation note No assessment information availa ble [facility] Work Phone: Evaluation note Note Date & Type Note Facility Evaluation note Diagnosis Onset Date Degenerative spondylolisthesis acute [facility] Work Phone: Evaluation note Note Date & Type Note Facility Evaluation note Diagnosis Onset Date Degenerative spondylolisthesis acute Degenerative spondylolisthesis acute Spinal stenosis at L4-L5 level acute [facility] Work Phone: Hospital Discharge instructions Note Date & Type Note Facility Hospital Discharge instructions Additional Instructions Use quhs-eqk-jtjvzme medications like Claritin is an antihistamine. You may also use a decongestant such as Coricidin HBP. Avoid use of pseudoephedrine or products that will elevate her blood pressure. You may use the nasal steroid 1 spray per nostril per day for up to 5 days. [facility] Work Phone: Family History No Family History [...] Will Yes March 20 5:10am Power of Stack Clerk Yes March 20 021 5:10am Advance Directive Response Recorded Date/ Time Name of Medical Power of Stack Clerk PHILL Chi May 27, 2022 6:52pm Living Will Yes May 27 6:52pm Power of Stack Clerk Yes May 27, 2022 6:52pm Advance Directive Response Recorded Date/ Time Living Will Yes May 27 6:52pm Power of Stack Clerk Yes May 27, 2022 6:52pm Advance Directive Response Recorded Date/ Time Living Will Yes November 23, 2022 12 :11pm Power of Stack Clerk Yes November 23, 2022 12:11pm Advance Directive Response Recorded Date/ Time Living Will Yes July 04 023 9:20am Power of Stack Clerk Yes July 04, 2023 9:20am Name of Medical Power of Stack Clerk July 04, 2023 9:20am Advance Directive Response Recorded Date/ Time Name of Medical Power of Stack Clerk July 04, 2023 9:20am Living Will No July 04 023 6:04pm Power of Stack Clerk No July 04, 2023 6:04pm Chief Complaint [...] section and content) DATE CREATED AUTHOR 10/30/2024 [facility] FOR RECORDS PERTAINING TO PATIENTS WHO [...] BE BASED ON THE PRIMARY CLINICAL RECORDS. [employer] provides no warranty or guarantee of the accuracy or completeness of information in this document.
== END 2025-01-20 15:28 | disposition home or self-care (01) ==
PROVIDERS: Emergency Provider Emergency Medicine; PCP Family Medicine; Referring Provider Emergency Medicine; Visit Provider Emergency Medicine
DX: S91.112A Laceration without foreign body of left great toe without damage to nail, initial encounter (principal); F03.90 Unspecified dementia, unspecified severity, without behavioral disturbance, psychotic disturbance, mood disturbance, and anxiety; I10 Essential (primary) hypertension; Z23 Encounter for immunization; W20.8XXA Other cause of strike by thrown, projected or falling object, initial encounter
CPT/HCPCS: 12001; 90715; 99283

== ENCOUNTER → 2025-02-15 | Outpatient (CLI) | payer MEDICARE, OTHER, SELFPAY ==
--- NOTE | 2025-02-15 10:15 | BI_ITS ---
EXAM: SCRN MAMM (CAD)W/DESIRAE BILAT DATE: 02/15/2025 CLINICAL HISTORY: F, Age 84 y/o , SCREENING; H/O BREAST CA TECHNIQUE: SCRN MAMM (CAD)W/DESIRAE BILAT COMPARISON: Prior exam(s) dated 02/15/2024. FINDINGS: TISSUE DENSITY: The breasts are heterogeneously dense, which may obscure small masses. The mammogram demonstrates that the patient has dense breasts. Supplemental screening with whole breast ultrasound or MRI may be considered for further evaluation. Bilateral Breast Mammographic Findings: There are new postsurgical changes in the upper outer left breast at middle depth. No significant masses, calcifications or other abnormalities are identified. BI/SCRN MAMM (CAD)W/DESIRAE BILAT IMPRESSION: There is no mammographic evidence of malignancy. OVERALL FINAL ASSESSMENT BI-RADS 2: BENIGN RECOMMENDATION: Routine annual follow-up in 1 Year A letter with findings and recommendations will be mailed to the patient. Reading Location: [id number]
== END | disposition home or self-care (01) ==
LOC: OPBI 09:49
PROVIDERS: PCP Family Medicine; Referring Provider Nurse Practitioner Family; Visit Provider Nurse Practitioner Family
DX: Z12.31 Encounter for screening mammogram for malignant neoplasm of breast (principal)
CPT/HCPCS: 77063; 77067

== ENCOUNTER 2025-06-10 13:08 | Emergency (ER) | payer MEDICARE, OTHER, SELFPAY ==
[2025-06-10 13:09] VITALS: BP 162/89; PULSE 84; RESP 16; TEMP 36.8; O2SAT 95; BMI 18.1
--- NOTE | 2025-06-10 14:18 | ED.VIS.FEGU ---
HPI HPI - Female History of Present Illness Chief Complaint: Complaint Narrative Narrative: Chief complaint and HPI: 84-year-old female with past medical history of dementia, HTN, hypothyroidism presents for evaluation of urinary frequency. Patient is a difficult historian given her dementia however is in the room and helps with history. Patient started complaining of urinary frequency today. Denies any fever, chills, shortness of breath, chest pain abdominal pain, nausea, vomiting, dysuria. Review of systems: See HPI Medications: As listed on the chart Allergies: As listed on the chart PFSH: Per chart Vital signs: As listed on the chart. Reviewed. 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 Breast cancer Osteoporosis Wears hearing aid Wears glasses Osteoporosis Anxiety Depression Non-smoker Migraines Thyroid cancer Sciatica Arthritis Environmental allergies Hypothyroid HTN (hypertension) Enteritis Home Medications ?Medication ?Instructions ?Recorded ?Last Taken ?Type levothyroxine 75 mcg tablet 75 mcg PO SUTUTHSA 02/22/24 06/09/25 History (Synthroid) levothyroxine 88 mcg tablet 88 mcg PO MOWEFR 02/22/24 06/10/25 History (Synthroid) duloxetine 20 mg capsule,delayed 20 mg PO BID 03/29/24 06/10/25 History release lisinopril 20 mg tablet 20 mg PO BID 03/29/24 06/10/25 History anastrozole 1 mg tablet 1 mg PO QDAY #90 tabs 05/15/25 06/09/25 Rx aspirin 81 mg tablet 81 mg PO DAILY 06/10/25 06/10/25 History biotin 1 tab PO DAILY 06/10/25 06/10/25 History cyanocobalamin (vitamin B-12) 1 tab PO DAILY 06/10/25 06/10/25 History memantine 28 mg capsule 28 mg PO DAILY 06/10/25 06/10/25 History sprinkle,extended release 24hr Allergy/AdvReac Type Severity Reaction Status Date / Time No Known Allergies Allergy Verified 06/10/25 13:10 Family History Other No pertinent family history Surgical History S/P breast lumpectomy H/O thyroidectomy History of facial surgery s/p pelvic floor reconstruction S/P hysterectomy Social History household members: spouse Smoking Status: Never smoker alcohol intake: never substance use type: does not use EXAM Physical Exam Const Vital Signs: 06/10/25 13:09 06/10/25 15:11 Temperature 98.2 F Temperature Source Oral Pulse Rate 84 73 Respiratory Rate 16 18 Blood Pressure 162/89 H Blood Pressure Mean 113 Pulse Ox 95 97 Oxygen Delivery Method Room Air MDM MDM MDM Narrative Medical decision making narrative: 84-year-old female with past medical history of dementia, HTN, hypothyroidism presents for evaluation of urinary frequency. Patient is a difficult historian given her dementia however is in the room and helps with history. Patient started complaining of urinary frequency today. Denies associated symptoms. On presentation, patient no acute distress. Vitals are stable other mild hypertension. Afebrile. Suspect a UTI. I do not thin further k any laboratory workup is needed at this time. in agreement. UA ordered. UA positive for UTI. Previous urine cultures have grown mixed gram-positive organisms and mixed culture. Patient will be placed on Keflex. Follow-up with primary care physician. and patient confirmed understand the plan. Patient stable to discharge home. Impression: 1. UTI Lab Data Labs: Laboratory Results - last 24 hr 06/10/25 14:25 Urine Color Yellow Urine Clarity Turbid Urine pH 6.0 Ur Specific [place] 1.020 Urine Protein 30 H Urine Glucose (UA) Normal Urine Ketones Negative Urine Occult Blood 150 H Urine Nitrite Negative Urine Bilirubin Negative Urine Urobilinogen Normal Ur Leukocyte Esterase 500 H Urine RBC 5-10 SEEN Urine WBC >100 SEEN Ur Squamous Epith Cells 0-5 SEEN Urine Bacteria 2+ Urine Mucus 0 SEEN Discharge Plan Triage Chief Complaint: Complaint ED Provider: Renato Mcneil Dx/Rx/DC Orders Prescriptions: No Action levothyroxine [Synthroid] 88 mcg tablet 88 mcg PO MOWEFR levothyroxine [Synthroid] 75 mcg tablet 75 mcg PO SUTUTHSA lisinopril 20 mg tablet 20 mg PO BID duloxetine 20 mg capsule,delayed release(DR/EC) 20 mg PO BID memantine 28 mg capsule,sprinkle,ER 24hr 28 mg PO DAILY aspirin 81 mg tablet 81 mg PO DAILY biotin 1 tab PO DAILY cyanocobalamin (vitamin B-12) 1 tab PO DAILY anastrozole 1 mg tablet 1 mg PO QDAY Qty: 90 3RF Primary Care Provider: Antonella Loyola Referrals: Antonella Loyola DO [Primary Care Provider, Family Practice] Print Language: Mongolian
[2025-06-10 14:35] LABS: Mucous, Urine 0 SEEN /hpf (<or=2+)
[2025-06-10 14:55] LABS: Color, Urine Yellow (Yellow); Glucose, Dipstick Normal (Normal); Ketone-Dipstick Negative (Negative); Leukocyte Esterase-Dipstick 500 /ul (Negative); Nitrite-Dipstick Negative (Negative); Occult Blood-Urine 150 /ul (Negative); Protein-Dipstick 30 mg/dl (Negative); Specific Gravity, Urine 1.020 (1.002-1.030); Urine Bilirubin Dipstick Negative (Negative)
[2025-06-10 15:11] VITALS: PULSE 73; RESP 18; O2SAT 97
[2025-06-10 15:52] LABS: Red Blood Cells-Urine 5-10 SEEN /hpf (0-5); Squamous Epithelial Cells - UA 0-5 SEEN /hpf (5-10)
[2025-06-10 16:10] VITALS: BP 145/81; PULSE 73; RESP 18; TEMP 36.8; O2SAT 97
--- OUTSIDE RECORDS SUMMARY | 2025-06-10 16:34 | XMS RPT_ITS | CCD ---
Author Organization [facility] Care Team Providers Care Software Development Engineer Name Role Phone Dr. Antonella Loyola Primary Care Provider Dr. Antonella Loyola Referring Provider Dr. Bernard Ewing Attending Provider Dr. Yaya Villagran Attending Provider Dr. Antonella Loyola DO Primary Care Provider Dr. Antonella Loyola DO Referring Provider Shannan FINANCE BUSINESS MANAGER-C, Cecilia Attending Provider [phone] Hakeem Hayward MD Referring Provider Dr. Hakeem Hayward MD Emergency Provider Dr. Hakeem Hayward MD Attending Provider [phone] Dr. Laurence Mayer MD Attending Provider Shannan FINANCE BUSINESS MANAGER-C, Cecilia Referring Provider [phone] Yonas ROLON, Dr. Crespo Attending Provider Miguel Mariee Referring Unavailable Miguel Mariee Attending Unavailable Morrisys, Antonella Primary Care Unavailable Hakeem Hayward Referring Unavailable Hakeem Hayward Attending Unavailable Malys, Antonella Primary Care Unavailable Miguel Mariee Attending Unavailable Miguel Mariee Referring Unavailable Malys, Antonella Primary Care Unavailable Miguel Mariee Attending Unavailable Miguel Mariee Consulting Unavailable Miguel Mariee Referring Unavailable Malys, Antonella Primary Care Unavailable Malys, Antonella Referring Unavailable Laurence Mayer Attending Unavailable Malys, Antonella Primary Care Unavailable Malys, Antonella Referring Unavailable Miguel Mariee Attending Unavailable Malys, Antonella Primary Care Unavailable Malys, Antonella Referring Unavailable Bortz, Miguel Attending Unavailable Malys, Antonella Primary Care Unavailable Malys, Antonella Referring Unavailable Miguel Mariee Attending Unavailable Malys, Antonella Primary Care Unavailable Malys, Antonella Referring Unavailable Malys, Antonella Primary Care Unavailable Laurence Mayer Attending Unavailable Malys, Antonella Referring Unavailable Opal Christopher Attending Unavailable Malys, Antonella Primary Care Unavailable Malys, Antonella Referring Unavailable Malys, Antonella Primary Care Unavailable Laurence Mayer Attending Unavailable Malys, Antonella Referring Unavailable Shannan FINANCE BUSINESS MANAGER, Cecilia Attending Unavailable Malys, Antonella Primary Care Unavailable Shannan FINANCE BUSINESS MANAGER, Cecilia Attending Unavailable Malys, Antonella Referring Unavailable Malys, Antonella Primary Care Unavailable Shannan FINANCE BUSINESS MANAGER, Cecilia Referring Unavailable Shannan FINANCE BUSINESS MANAGER, Cecilia Attending Unavailable Malys, Antonella Primary Care Unavailable Malys, Antonella Primary Care Unavailable Shannan FINANCE BUSINESS MANAGER, Cecilia Referring Unavailable Shannan FINANCE BUSINESS MANAGER, Cecilia Attending Unavailable Miguel Mariee Referring Unavailable Miguel Mariee Attending Unavailable Malys, Antonella Primary Care Unavailable Medications Current Medications Medication Drug Class(es) Dates Sig (Normalized) Sig (Original) anastrozole 1 mg oral tablet (6 sources) Aromatase Inhibitor Start: 04-30-2024 End: 04-30-2024 take 1 tablet by mouth once daily Anastrozole 1 mg tablet Active 1 mg PO daily 90 April 30, 2024 12:00am Infiltrating ductal carcinoma of breast Malignant neoplasm of unspecified site of left female breast biotin 1 mg chewable tablet (4 sources) Start: 08-25-2019 take 1000 ug by mouth once daily Biotin Active 1000 MCG PO DAILY August 25, 2019 1:00am diclofenac sodium 0.01 mg/mg topical gel (4 sources) Nonsteroidal Anti-inflammatory Drug Start: 09-04-2020 Diclofenac Sodium Active GM TOPICAL September 04, 2020 1:00am DULoxetine 20 mg delayed release oral capsule (8 sources) Serotonin and Norepinephrine Reuptake Inhibitor Start: 03-29-2024 take 1 capsule by mouth twice daily Duloxetine 20 mg capsule,delayed release(DR/EC) Active 20 mg PO TWICE A DAY March 29, 2024 12:00am Start: 02-14-2023 End: 02-22-2024 take 1 capsule by mouth once daily Duloxetine 20 mg capsule,delayed release(DR/EC) Discontinued 20 mg PO DAILY February 14, 2023 12:00am February 22, 2024 10:25am levothyroxine sodium 0.088 mg oral tablet (18 sources) l-Thyroxine Start: 02-22-2024 take 1 tablet by mouth once Levothyroxine (Synthroid) 75 mcg tablet Active 75 ug PO every Tuesday, , , Sat February 22, 2024 12:00am Start: 02-22-2024 Levothyroxine (Synthroid) 88 mcg tablet Active 88 ug PO MOWEFR February 22, 2024 12:00am Start: 08-16-2013 End: 02-22-2024 Levothyroxine 100 MCG tablet Discontinued 88 ug PO DAILY August 16, 2013 1:00am February 22, 2024 10:25am thyroid Start: 08-16-2013 take 88 ug by mouth once daily Levothyroxine Active 88 MCG PO DAILY August 16, 2013 12:00am lisinopril 20 mg oral tablet (15 sources) Angiotensin Converting Enzyme Inhibitor Start: 03-29-2024 take 1 tablet by mouth twice daily Lisinopril 20 mg tablet Active 20 mg PO TWICE A DAY March 29, 2024 12:00am Start: 08-16-2013 End: 02-22-2024 take 1 tablet by mouth twice daily Lisinopril 20 MG tablet Discontinued 20 mg PO TWICE A DAY August 16, 2013 1:00am February 22, 2024 10:24am htn 24 hr memantine hydrochloride 14 mg extended release oral capsule (3 sources) O-cipcxu-M-aspartate Receptor Antagonist Start: 02-22-2024 take 1 capsule by mouth once daily Memantine 14 mg capsule,rui,ER 24hr Active 14 mg PO daily February 22, 2024 12:00am Methylprednisolone (4 sources) Corticosteroid Start: 03-20-2021 Methylprednisolone Active MG March 20, 2021 5:05am Start: 03-20-2021 Methylpredniso lone Active MG March 20, 2021 12:00am nitrofurantoin, macrocrystals 25 mg / nitrofurantoin, monohydrate [...] PO AT BEDTIME August 08, 2018 1:00am Completed/Discontinued Medications Medication Drug Class(es) Dates Sig (Normalized) Sig (Original) acetaminophen 325 mg / HYDROcodone bitartrate 5 mg oral tablet (12 sources) Opioid Agonist Start: 09-10-2020 End: 09-13-2020 Hydrocodone-Acetami nophen 1 TABLET tablet Discontinued 1 {tbl} PO EVERY 6 HOURS NEEDED as needed for Pain 10 3 0 September 10, 2020 September 12, 2020 1:00am September 13, 2020 1:03am Neck pain Cervicalgia Start: 09-10-2020 End: 09-13-2020 take 1 tablet by mouth every six hours as needed Hydrocodone-Acetaminophen Discontinued 1 TABLET PO EVERY 6 HOURS NEEDED 10 3 September 10, 2020 September 13, 2020 12:03am aspirin 81 mg delayed release oral tablet (8 sources) Platelet Aggregation Inhibitor, Nonsteroidal Anti-inflammatory Drug Start: 05-27-2022 End: 02-22-2024 take 1 tablet by mouth once daily Aspirin 81 mg Tablet,Delayed Release (Dr/Ec) Discontinued 81 mg PO DAILY May 27, 2022 12:00am February 22, 2024 10:25am calcium carbonate 1250 mg oral tablet (12 sources) Start: 08-16-2013 End: 02-22-2024 take 1 tablet by mouth once daily Calcium Carbonate 500 MG tablet Discontinued 500 mg PO DAILY@0800 August 16, 2013 1:00am February 22, 2024 10:25am supplement dicyclomine hydrochloride 10 mg oral capsule (12 sources) Anticholinergic Start: 08-25-2019 End: 09-13-2019 take 2 capsules by mouth at bedtime Dicyclomine 10 MG capsule Discontinued 20 mg PO BEFORE MEALS AND AT BEDTIME 5 August 25, 2019 1:00am September 13, 2019 3:04pm Start: 08-25-2019 End: 09-13-2019 take 20 mg by mouth at bedtime Dicyclomine Discontinue d 20 MG PO BEFORE MEALS AND AT BEDTIME August 25, 2019 12:00am September 13, 2019 2:04pm ibuprofen 600 mg oral tablet (12 sources) Nonsteroidal Anti-inflammatory Drug Start: 09-13-2019 End: 02-14-2023 take 1 tablet by mouth every eight hours as needed for pain Ibuprofen 600 mg tablet Discontinued 600 mg PO Q8H as needed for Pain September 13, 2019 1:00am February 14, 2023 4:14pm Multivitamin (Daily Multi-Vitamin) tablet (5 sources) Start: 02-14-2023 End: 02-22-2024 Multivitamin (Daily Multi-Vitamin) tablet Discontinued 1 {tbl} PO DAILY February 14, 2023 12:00am February 22, 2024 10:24am SUPPLEMENT Start: 02-14-2023 take 1 tablet by zora th once daily Multivitamin (Daily Multi-Vitamin) tablet Active 1 TABLET PO DAILY February 13, 2023 11:00pm Nirmatrelvir-Ritonavir (8 sources) Start: 05-27-2022 End: 02-14-2023 Nirmatrelvir-Ritonavir (Paxl ovid (Eua)) 300 mg (150 mg x 2)-100 mg tablets,dose pack Discontinued 0 PO .COMPLEX 30 May 27, 2022 12:00am February 14, 2023 4:15pm take TWO 150 mg tablets of nirmatrelvir with ONE 100 mg tablet of ritonavir twice daily for 5 days Start: 05-27-2022 End: 02-14-2023 Nirmatrelvir-Ritonavir (Paxl ovid (Eua)) 300 mg (150 mg x 2)-100 [...] for injection Discontinued 80 MG INTRAARTIC ONCE September 13, 2019 2:47pm September 13, 2019 3:34pm vitamin b12 0.5 mg oral tablet (12 sources) Vitamin B12 Start: 08-25-2019 End: 02-22-2024 take 2 tablets by mouth once daily Cyanocobalamin (Vitamin B-12) 500 MCG tablet Discontinued 1000 ug PO DAILY@0800 August 25, 2019 1:00am February 22, 2024 10:25am Start: 08-25-2019 take 1000 ug by mout h once daily Cyanocobalamin (Vitamin B-12) Active 1000 MCG PO DAILY@0800 August 25, 2019 12:00am Problems Active Problems Problem Classification Problem Date Documented Date Episodic/Chronic Allergic reactions (12 sources) Environmental allergy; Translations: [Other allergy status, other than to drugs and biological substances] 08-25-2019 Episodic Cancer of breast (19 sources) Malignant tumor of breast ; Translations: [Malignant neoplasm of unspecified site of unspecified female breast] Onset: 01-28-2025 05-04-2024 Chronic Conditions associated with dizziness or vertigo (5 sources) Vertigo; Translations: [Dizziness and giddiness] 02-23-2023 Episodic Delirium, dementia, and amnestic and other cognitive disorders (10 sources) Dementia; Translations: [Unspecified dementia without behavioral disturbance] 02-23-2023 Chronic Essential hypertension (12 sources) Hypertensive disorder; Translations: [Essential (primary) hypertension] 08-25-2019 Chronic Headache; including migraine (20 sources) Headache; Translations: [Supraorbital headache] 06-04-2022 Episodic Influenza (12 sources) Influenza due to Influenza A virus; Translations: [Influenza due to other identified influenza virus with other respiratory manifestations] 08-17-2013 Episodic Nausea and vomiting (5 sources) Nausea and vomiting; Translations: [Nausea with vomiting, unspecified] 02-23-2023 Episodic Noninfectious gastroenteritis (12 sources) Enteritis of small intestine; Translations: [Noninfective gastroenteritis and colitis, unspecified] 08-25-2019 Episodic Open wounds of extremities (4 sources) Laceration of left great toe; Translations: [Laceration without foreign body of left great toe without damage to nail, initial encounter] Onset: 01-23-2025 01-20-2025 Episodic Osteoporosis (7 sources) Osteoporosis; Translations: [Age-related osteoporosis without current pathological fracture] Onset: 04-30-2024 04-30-2024 Chronic Other acquired deformities (7 sources) Degenerative spondylolisthesis; Translations: [Spondylolisthesis, site unspecified] 11-03-2022 Episodic Other acquired deformities (3 sources) Spondylolisthesis, site unspecified; Translations: [Acquired spondylolisthesis] 11-03-2022 Episodic Other bone disease and musculoskeletal deformities (3 sources) Osteopenia; Translations: [Other specified disorders of bone density and structure, unspecified site] 05-04-2024 Episodic Other screening for suspected conditions (not mental disorders or infectious disease) (9 sources) Mammography abnormal; Translations: [Other abnormal and inconclusive findings on diagnostic imaging of breast] Onset: 04-02-2024 02-29-2024 Episodic Comment on above: Patient is an 83-yea r-old female who presents after she is diagnosed with a BI-RADS 4 screening mammogram of the left breast. She has had fairly routine screening and never had previous biopsy that is that she remembers. She does have an area on her right breast that looks like a potential prior biopsy site. Given patient's concurrent diagnosis of dementia her history is somewhat lacking. Unfortunately patient did not have a reflex ultrasound after her mammography finding so we do not have a sonographic correlate. That understood, on my exam today identify a suspicious lesion at the 1 o'clock position 4 cm from the nipple areolar complex. I suspect this was what was identified on mammography, however, I have recommended we wait for a formal study to be performed before entertaining a biopsy procedure. Patient and her express both understanding and agreement.Update 02/29/2024: Follow-up ultrasound confirmed that the lesion in question from patient's initial consultation was the abnormality seen on patient's screening mammogram. Given the short interval since her consultation visit this was the only significant health update. Biopsy of this mass was undertaken during today's visit in uncomplicated fashion. Full details are given in the procedures section of this note. Postprocedural wound care instructions were provided to patient and her sister and included application of ice, bandage instructions, and bathing recommendations. Spondylosis; intervertebral disc disorders; other back problems (20 sources) Neck pain; Translations: [Cervicalgia] 11-03-2022 Episodic Substance-related disorders (12 sources) Drug-induced insomnia; Translations: [Other psychoactive substance use, unspecified with psychoactive substance-induced sleep disorder] 03-20-2021 Episodic Thyroid disorders (12 sources) Hypothyroidism; Translations: [Hypothyroidism, unspecified] 09-10-2020 Chronic Urinary tract infections (12 sources) Urinary tract infectious disease; Translations: [Urinary tract infection, site not specified] 03-20-2021 Episodic Viral infection (8 sources) Disease caused by 2019-nCoV; Translations: [COVID-19] 05-27-2022 Episodic Past or Other Problems Problem Classification Problem Date Documented Date Episodic/Chronic Residual codes; unclassified (4 sources) Other specified postprocedural states; Translations: [Status post breast lumpectomy] Onset: 04-30-2024 04-30-2024 Episodic Unclassified (9 sources) s/p pelvic floor reconstruction 02-10-2022 Results Test Name Value Interpretation Reference Range Facility Breast imaging reportOrdered By: Misty White on 02-15-2025 Study report [facility] Imaging Services [address] [place], [place] [id number] SCRN MAMM (CAD)W/DESIRAE BILAT MR#: [id number] Acct: [id number] Name: ESTRADA MURO Bhanu Rep #: [id number] : 1940 F 84 From: Bryanna White MD PCP: Dr. Antonella Loyola, Status: REG CLI Study:SCRN MAMM (CAD)W/DESIRAE BILAT Date of Exa m: 02/15/25 Exam# [id number] Ordering Dr: Cecilia Graham NP FINANCE BUSINESS MANAGER-C EXAM: SCRN MAMM (CAD)W/DESIRAE BILAT DATE: 02/15/2025 CLINICAL HISTORY: F, Age 84 y/o , SCREENING; H/O BREAST CA TECHNIQUE: SCRN MAMM (CAD)W/DESIRAE BILAT COMPARISON: Prior exam(s) dated 02/15/2024. FINDINGS: TISSUE DENSITY: The breasts are heterogeneously dense, which may obscure small masses. The mammogram demonstrates that the patient has dense breasts. Supplemental screening with whole breast ultrasound or MRI may be considered for further evaluation. Bilateral Breast Mammographic Findings: There are new postsurgical changes in the upper outer left breast at middle depth. No significant masses, calcifications or other abnormalities are identified. BI/SCRN MAMM (CAD)W/DESIRAE BILAT IMPRESSION: There is no mammographic evidence of malignancy. OVERALL FINAL ASSESSMENT BI-RADS 2: BENIGN RECOMMENDATION: Routine annual follow-up in 1 Year A letter with findings and recommendations will be mailed to the patient. Reading Location: [facility] CC: FINANCE BUSINESS MANAGER-C Cecilia Campbell; Dr. Antonella Loyola DO ~ Rim Roller Setter: Signed [facility] SCRN MAMM (CAD)W/DESIRAE BILATo n 02-15-2025 SCRN MAMM (CAD)W/DESIRAE BILAT [facility] Imaging Services [address] [place] [address] [id number] SCRN MAMM (CAD)W/DESIRAE BILAT MR#: [id number] Acct: [id number] Name: ESTRADA MURO Rep #: [id number] : 1940 F 84 From: Misty White MD PCP: Dr. Antonella Loyola DO Status: REG CLI Study: SCRN MAMM (CAD)W/DESIRAE BILAT Date of Exam: 01/23 12/16 Exam# [id number] Ordering Dr: Cecilia Campbell NP FINANCE BUSINESS MANAGER -C EXAM: SCRN MAMM (CAD)W/DESIRAE BILAT DATE: 02/15/2025 CLINICAL HISTORY: F, Age 84 y/o , SCREENING; H/O BREAST CA TECHNIQUE: SCRN MAMM (CAD)W/DESIRAE BILAT COMPARISON: Prior exam(s) dated 02/15/2024. FINDINGS: TISSUE DENSITY: The breasts are heterogeneously dense, which may obscure small masses. The mammogram demonstrates that the patient has dense breasts. Supplemental screening with whole breast ultrasound or MRI may be considered for further evaluation. Bilateral Breast Mammographic Findings: There are new postsurgical changes in the upper outer left breast at middle depth. No significant masses, calcifications or other abnormalities are identified. BI/SCRN MAMM (CAD)W/DESIRAE BILAT IMPRESSION: There is no mammographic evidence of malignancy. OVERALL FINAL ASSESSMENT BI-RADS 2: BENIGN RECOMMENDATION: Routine annual follow-up in 1 Year A letter with findings and recommendations will be mailed to the patient. Reading Location: [id number] CC: YOLA Campbell; Dr. Antonella Loyola DO Rim Roller Setter: Signed Normal [facility] Absolute lymphocyte countOrd ered By: Cecilia Campbell on 01-28-2025 Lymphocytes Auto (Unsp spec) [#/Vol] 1.49 10*3/uL 0.83-4.51 [facility] Absolute neutrophil countOrd ered By: eCcilia Campbell on 01-28-2025 Neutrophils (Bld) [#/Vol] 4.3 10*3/uL 2.0-7.7 [facility] Anion gap in Serum or Plasma Ordered By: Cecilia Campbell on 01-28-2025 Anion gap [Moles/Vol] 8 mmol/L 5-15 [facility] Automated lymphocyte count a s percentage of total leukocytesOrdered By: Cecilia Campbell on 01-28-2025 Lymphocytes/100 WBC Auto (Unsp spec) 23.6 % 19-41 [facility] BUN/creatinine ratioOrdered By: Cecilia Campbell on 01-28-2025 Urea nitrogen/Creatinine [Mass ratio] 20.8 mg/mg High 10-20 [facility] Basophil percentageOrdered B y: Cecilia Campbell on 01-28-2025 Basophils/100 WBC (Bld) 0.8 % 0-1 [facility] Bilirubin, totalOrdered By: Cecilia Campbell on 01-28-2025 Bilirubin [Mass/Vol] 0.30 mg/dL 0.00-1.30 [facility] CBC W/Diff, Automatedon 07-0 7-2025 Absolute Lymph 1.49 X10 3/uL Normal 0.83-4.51 [facility] Comment on above: Performed By: #### L 501.2300, L100.0100, L500.4050 #### [facility] [address] [place], [address] Absolute Neut 4.3 X10 3/uL Normal 2.0-7.7 [facility] Comment on above: Performed By: #### L 501.2300, L100.0100, L500.4050 #### [facility] [address] [place], [address] Basophils/100 WBC (Bld) 0.8 % Normal 0-1 [facility] Comment on above: Performed By: #### L 501.2300, L100.0100, [id number] #### [facility] [address] [place], [address] Eosinophils/100 WBC (Bld) 0.9 % Normal 0-5 [facility] Comment on above: Performed By: #### L 501.2300, L100.0100, [id number] #### [facility] [address] [place], [address] Erythrocyte distribution width (RBC) [Ratio] 13.4 % Normal 11.6-14.6 [facility] Comment on above: Performed By: #### L 501.2300, L100.0100, [id number] #### [facility] [address] [place], [address] Hematocrit (Bld) [Volume fraction] 36.3 % Low 37-47 [facility] Comment on above: Performed By: #### L 501.2300, L100.0100, [id number] #### [facility] [address] [place], [address] Hemoglobin (Bld) [Mass/Vol] 11.5 g/dL Low 12.0-15.0 [facility] Comment on above: Performed By: #### L 501.2300, L100.0100, L500.4050 #### [facility] [address] [place], [address] IG% 0.200 Normal 0.0-0.9 [facility] Comment on above: Result Comment: IG% - Immature Granulocytes (promyelocytes, myelocytes and metamyelocytes) > 1% indicates that a LEFT SHIFT is Present. Performed By: #### L 501.2300, L100.0100, L500.4050 #### [facility] [address] [place], [address] Lymphocytes/100 WBC (Bld) 23.6 % Normal 19-41 [facility] Comment on above: Performed By: #### L 501.2300, L100.0100, [id number] #### [facility] [address] [place], [address] MCH (RBC) [Entitic mass] 31.7 pg Normal 27.0-32.0 [facility] Comment on above: Performed By: #### L 501.2300, L100.0100, L500.4050 #### [facility] [address] [place], [address] MCHC (RBC) [Mass/Vol] 31.7 g/dL Low 32-36 [facility] Comment on above: Performed By: #### L 501.2300, L100.0100, L500.4050 #### [facility] [address] [place], [address] MCV (RBC) [Entitic vol] 100.0 fL High 81-99 [facility] Comment on above: Performed By: #### L 501.2300, L100.0100, [id number] #### [facility] [address] [place], [address] Monocytes/100 WBC (Bld) 6.3 % Normal 0-10 [facility] Comment on above: Performed By: #### L 501.2300, L100.0100, [id number] #### [facility] [address] [place], [address] Neutrophils/100 WBC (Bld) 68.2 % Normal 47-70 [facility] Comment on above: Performed By: #### L 501.2300, L100.0100, [id number] #### [facility] [address] [place], [address] Nucleated RBC (Bld) [#/Vol] 0 10*3/uL Normal 0-5 [facility] Comment on above: Performed By: #### L 501.2300, L100.0100, [id number] #### [facility] [address] [place], [address] Platelet mean volume (Bld) [Entitic vol] 12.0 fL Normal 6.2-12.0 [facility] Comment on above: Performed By: #### L 501.2300, L100.0100, [id number] #### [facility] [address] [place], [address] Platelets (Bld) [#/Vol] 162 10*3/uL Normal 150-450 [facility] Comment on above: Performed By: #### L 501.2300, L100.0100, L500.4050 #### [facility] [address] [place], [address] RBC (Bld) [#/Vol] 3.63 10*6/uL Low 4.2-5.4 [facility] Comment on above: Performed By: #### L 501.2300, L100.0100, L500.4050 #### [facility] [address] [place], [address] RDW SD 49.8 fl High 35.1-43.9 [facility] Comment on above: Performed By: #### L 501.2300, L100.0100, L500.4050 #### [facility] [address] [place], [address] WBC (Bld) [#/Vol] 6.3 10*3/uL Normal 4.4-11.0 [facility] Comment on above: Performed By: #### L 501.2300, L100.0100, L500.4050 #### [facility] [address] [place], [address] Carbon dioxide, total [Moles /volume] in Central venous bloodOrdered By: Cecilia Campbell on 01-28-2025 CO2 [Moles/Vol] 26.3 mmol/L 21.0-32.0 [facility] Chloride assayOrdered By: Cam Campbell on 01-28-2025 Chloride [Moles/Vol] 105 mmol/L 98-108 [facility] Comprehensive Metabolic Prof ilon 01-28-2025 Albumin [Mass/Vol] 4.2 g/dL Normal 3.4-4.8 [facility] Comment on above: Performed By: #### L 501.2300, L100.0100, L500.4050 ####[facility] [address] [place], [address] Albumin/Globulin [Mass ratio] 1.7 {ratio} Normal 0.9-2.4 [facility] Comment on above: Performed By: #### L 501.2300, L100.0100, [id number] ####[facility] [address] [place], [address] ALK PHOS 55 U/L Normal 35-104 [facility] Comment on above: Performed By: #### L 501.2300, L100.0100, L500.4050 ####[facility] [facility] [address] [place], [address] ALT [Catalytic activity/Vol] 6 U/L Normal <=34 [facility] Comment on above: Performed By: #### L 501.2300, L100.0100, L500.4050 ####[facility] [address] [place], [address] AST [Catalytic activity/Vol] 20 U/L Normal <=31 [facility] Comment on above: Performed By: #### L 501.2300, L100.0100, L500.4050 ####[facility] [address] [place], [address] Bilirubin [Mass/Vol] 0.30 mg/dL Normal 0.00-1.30 [facility] Comment on above: Performed By: #### L 501.2300, L100.0100, L500.4050 ####[facility] [address] [place], [address] BUN/CRE 20.8 RATIO High 10-20 [facility] Comment on above: Performed By: #### L 501.2300, L100.0100, L500.4050 ####[facility] [address] [place], [address] Calcium [Mass/Vol] 9.2 mg/dL Normal 7.6-11.0 [facility] Comment on above: Performed By: #### L 501.2300, L100.0100, L500.4050 ####[facility] [address] [place], [address] Chloride [Moles/Vol] 105 mmol/L Normal 98-108 [facility] Comment on above: Performed By: #### L 501.2300, L100.0100, L500.4050 ####[facility] [address] [place], [address] CO2 [Moles/Vol] 26.3 mmol/L Normal 21.0-32.0 [facility] Comment on above: Performed By: #### L 501.2300, L100.0100, L500.4050 ####[facility] [address] [place], [address] Creatinine [Mass/Vol] 0.92 mg/dL Normal 0.70-1.20 [facility] Comment on above: Performed By: #### L 501.2300, L100.0100, L500.4050 ####[facility] [address] [place], [address] ECRCL 41.90 ml/min Low 50-250 [facility] Comment on above: Performed By: #### L 501.2300, L100.0100, L500.4050 ####[facility] [address] [place], [address] GAP 8 Normal 5-15 [facility] Comment on above: Performed By: #### L 501.2300, L100.0100, L500.4050 ####[facility] [address] [place], [address] GFR/1.73 sq M.predicted among non-blacks MDRD (S/P/Bld) [Vol rate/Area] 62 mL/min/{1.73_m2} Normal >60 [facility] Comment on above: Result Comment: mL/m in/1.73m2 CKD-EPI Creatinine Equation (2020) Performed By: #### L 501.2300, L100.0100, L500.4050 ####[facility] [address] [place], [address] Globulin (S) [Mass/Vol] 2.6 g/dL Normal 2.2-4.2 [facility] Comment on above: Performed By: #### L 501.2300, L100.0100, L500.4050 ####[facility] [address] [place], [address] Glucose [Mass/Vol] 98 mg/dL Normal 70-99 [facility] Comment on above: Performed By: #### L 501.2300, L100.0100, L500.4050 ####[facility] [address] [place], [address] Potassium [Moles/Vol] 4.3 mmol/L Normal 3.3-5.1 [facility] Comment on above: Performed By: #### L 501.2300, L100.0100, L500.4050 ####[facility] [address] [place], [address] Sodium [Moles/Vol] 140 mmol/L Normal 133-145 [facility] Comment on above: Performed By: #### L 501.2300, L100.0100, L500.4050 ####[facility] [address] [place], [address] T PROT 6.8 g/dL Normal 5.9-8.4 [facility] Comment on above: Performed By: #### L 501.2300, L100.0100, L500.4050 ####[facility] [address] [place], [address] Urea nitrogen [Mass/Vol] 19 mg/dL Normal 4-19 [facility] Comment on above: Performed By: #### L 501.2300, L100.0100, L500.4050 ####[facility] [address] [place], [address] Eosinophil percentageOrdered By: Cecilia Campbell on 01-28-2025 Eosinophils/100 WBC (Bld) 0.9 % 0-5 [facility] Erythrocyte distribution wid th ratioOrdered By: Cecilia Campbell on 01-28-2025 Erythrocyte distribution width (RBC) [Ratio] 13.4 % 11.6-14.6 [facility] Erythrocyte distribution wid th standard deviationOrdered By: Cecilia Campbell on 01-28-2025 Erythrocyte distribution width (RBC) [Ratio] 49.8 fl High 35.1-43.9 [facility] Glomerular filtration rate ( GFR) estimation/1.73 sq m using serum, plasma, or whole bOrdered By: Cecilia Campbell on 01-28-2025 GFR/1.73 sq M.predicted among non-blacks MDRD (S/P/Bld) [Vol rate/Area] 62 mL/min/{1.73_m2} >60 [facility] Comment on above: mL/min/1.73m2 CKD-EP I Creatinine Equation (2020) Hematocrit Auto (Bld) [Volum e fraction]Ordered By: Cecilia Campbell on 01-28-2025 Hematocrit (Bld) [Volume fraction] 36.3 % Low 37-47 [facility] Hemoglobin measurementOrdere d By: Cecilia Campbell on 01-28-2025 Hemoglobin (Bld) [Mass/Vol] 11.5 g/dL Low 12.0-15.0 [facility] Immature granulocytes/100 WB C Auto (Bld)Ordered By: Cecilia Campbell 01-28-2025 Immature granulocytes/100 WBC (Bld) 0.200 % 0.0-0.9 [facility] Comment on above: IG% - Immature Granu locytes (promyelocytes, myelocytes and metamyelocytes) > 1% indicates that a LEFT SHIFT is Present. Laboratory - Chemistry and C hemistry - challengeOrdered By: Cecilia Campbell on 01-28-2025 AST [Catalytic activity/Vol] 20 U/L <32 [facility] MCV (mean corpuscular volume ) determinationOrdered By: Cecilia Campbell 01-28-2025 MCV (RBC) [Entitic vol] 100.0 fL High 81-99 [facility] Mean corpuscular hemoglobin (MCH) determinationOrdered By: Cecilia Campbell 01-28-2025 MCH (RBC) [Entitic mass] 31.7 pg 27.0-32.0 [facility] Mean corpuscular hemoglobin concentration (MCHC) determinationOrdered By: Cecilia Campbell on 01-28-2025 MCHC (RBC) [Mass/Vol] 31.7 g/dL Low 32-36 [facility] Mean platelet volume determi nationOrdered By: Cecilia Campbell on 01-28-2025 Platelet mean volume (Bld) [Entitic vol] 12.0 fL 6.2-12.0 [facility] Monocyte percentageOrdered B y: Cecilia Campbell on 01-28-2025 Monocytes/100 WBC (Bld) 6.3 % 0-10 [facility] Neutrophil percentageOrdered By: Cecilia Shannan on 01-28-2025 Neutrophils/100 WBC (Bld) 68.2 % 47-70 [facility] Nucleated red blood cell per centageOrdered By: [facility]ann[facility] on 01-28-2025 Nucleated RBC/100 WBC (Bld) [Ratio] 0 % 0-5 [facility] Oncology Visit Reporton Oncology Visit Report [facility] [place] [facility] [address] [place] [address] OFFICE VISIT Date of Service: 01/28/25 1308 MR#: [id number] Acct: [id number] Name: ESTRADA MURO Rep #: [id number] : 1940 From: Laurence Mayer MD Age/Sex: 84/F [place] [facility] Status: Signed HPI Subjective Date of Service 01/28/25 Chief Complaint Breast cancer History of Present [...] present Additional Findings: None Breast Marker Study: [id number] ER: >95% NV: 0% Her2: 2+ (equivocal) Ki67:5% Negative for overexpression of SIP1eeh by FISH April 04, 2024 left breast [...] Ancillary studies: Previously performed on same tumor ([id number] / [id number]). ER: Positive, >95% NV: Negative, 0%, Her2 annie: 2+ by immunohistochemistry and not amplified (1.1) by in situ hybridization Ki67: 5% Clinical history: Mass of breast PATHOLOGIC STAGE: T1c Nx Mx Treatment summary and response: March 2024 left breast lumpectomy. April 2024 anastrozole [facility] Medical History Screening for breast cancer Osteopenia Invasive ductal carcinoma of breast, stage [...] type: does not use ROS ROS Narrative Seen with her who provided most of her history Review of Systems ROS Unobtainable: due to mental condition Constitutional Constitutional: Reports systems reviewed and no addt'l complaints, except as documented; Denies anorexia or weight loss Eyes Eyes: Reports systems reviewed and no addt'l complaints, except as documented ENT HEENT: Reports systems reviewed and no addt'l complaints, except as documented; Denies dental pain Cardiovascular Cardiovascular: Reports systems reviewed and no addt'l complaints, except as documented; Denies chest pain with activity or edema Respiratory/Chest Respirat (more content not included)... Normal [facility] Phosphoruson 01-28-2025 Phosphate [Mass/Vol] 2.8 mg/dL Normal 2.7-4.5 [facility] Comment on above: Performed By: #### L 501.2300, L100.0100, L500.4050 ####[facility] [address] [place], [address] Platelet countOrdered By: Cam Campbell on 01-28-2025 Platelets (Bld) [#/Vol] 162 10*3/uL 150-450 [facility] Potassium measurement (mass/ volume)Ordered By: Cecilia Campbell on 01-28-2025 Potassium (Unsp spec) [Mass/Vol] 4.3 mmol/L 3.3-5.1 [facility] RBC Auto (Bld) [#/Vol]Ordere d By: Cecilia Campbell on 07-07-2025 RBC (Bld) [#/Vol] 3.63 10*6/uL Low 4.2-5.4 [facility] Serum creatinine measurement (mass/volume)Ordered By: Cecilia Campbell on 01-28-2025 Creatinine [Mass/Vol] 0.92 mg/dL 0.70-1.20 [facility] Serum globulin measurementOr dered By: Cecilia Campbell on 01-28-2025 Globulin (S) [Mass/Vol] 2.6 g/dL 2.2-4.2 [facility] Serum glucose measurement (m ass/volume)Ordered By: Cecilia Campbell on 01-28-2025 Glucose [Mass/Vol] 98 mg/dL 70-99 [facility] Serum or plasma alanine hines otransferase (ALT) measurementOrdered By: Cecilia Campbell on 01-28-2025 ALT [Catalytic activity/Vol] 6 U/L <35 [facility] Serum or plasma albumin enrrique urement (mass/volume)Ordered By: Cecilia Campbell on 01-28-2025 Albumin [Mass/Vol] 4.2 g/dL 3.4-4.8 [facility] Serum or plasma albumin/glob ulin mass ratioOrdered By: Cecilia Campbell on 01-28-2025 Albumin/Globulin [Mass ratio] 1.7 {ratio} 0.9-2.4 [facility] Serum or plasma alkaline skyler sphatase measurementOrdered By: Cecilia Campbell on 01-28-2025 ALP [Catalytic activity/Vol] 55 U/L 35-104 [facility] Serum or plasma calcium enrrique urement (mass/volume)Ordered By: Cecilia Campbell on 01-28-2025 Calcium [Mass/Vol] 9.2 mg/dL 7.6-11.0 [facility] Serum or plasma urea nitroge n measurement (mass/volume)Ordered By: Cecilia Campbell 01-28-2025 Urea nitrogen [Mass/Vol] 19 mg/dL 4-19 [facility] Sodium levelOrdered By: Cecilia Campbell on 01-28-2025 Sodium [Moles/Vol] 140 mmol/L 133-145 [facility] Total proteinOrdered By: Naima Campbell on 01-28-2025 Protein [Mass/Vol] 6.8 g/dL 5.9-8.4 [facility] White blood cell (WBC) count Ordered By: Cecilia Campbell on 01-28-2025 WBC (Bld) [#/Vol] 6.3 10*3/uL 4.4-11.0 [facility] Emergency Department Summary on 01-20-2025 Emergency Department Summary [facility] Medical Records Department [address] [place] [address] Emergency Department Summary 01/20/25 MR#: [id number] Acct: [id number] Name: ESTRADA MURO Rep #: [id number] : 1940 84 From: Antonella AGUILAR PCP: Dr. Antonella Loyola, DO Status:DEP ER Location: ED HPI History of Present Illness Chief Complaint: Laceration Narrative Narrative: 84-year-old female with dementia presents with laceration on her left great toe. Her states there is a wooden shelf attached to the wall by 2 metal pieces that became loose and fell onto her toe about 30 minutes prior to arrival. Bleeding is controlled with a bandage. She is able to ambulate. She is not on blood thinners. 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 Breast cancer Osteoporosis Wears hearing aid Wears glasses Osteoporosis Anxiety Depression Non-smoker Migraines Thyroid cancer Sciatica Arthritis Environmental allergies Hypothyroid HTN (hypertension) Enteritis Home Medications ???Medication ???Instructions ???Recorded ???Last Taken ???Type levothyroxine 75 mcg tablet 75 mcg PO SUTUTHSA 02/22/24 Unknow n History (Synthroid) levothyroxine 88 mcg tablet 88 mcg PO MOWEFR 02/22/24 Unknown History (Synthroid) memantine 14 mg capsule 14 mg PO QDAY 02/22/24 Unknown His tory sprinkle,extended release 24hr duloxetine 20 mg capsule,delayed 20 mg PO BID 03/29/24 Unknown Hist ory release lisinopril 20 mg tablet 20 mg PO BID 03/29/24 Unknown Hist ory anastrozole 1 mg tablet 1 mg PO QDAY #90 tabs 04/30/24 Unk ladariusn Rx Allergy/AdvReac Type Severity Reaction Status Date / Time No Known Allergies Allergy Verified 01/20/25 14:29 Family History Other No pertinent family history Surgical History S/P breast lumpectomy H/O thyroidectomy History of facial surgery s/p pelvic floor reconstruction S/P hysterectomy Social History household members: spouse Smoking Status: Never smoker alcohol intake: never substance use type: does not use ROS ROS ED ROS Narrative Neuro: Negative for headache, motor/sensory dysfunction. Skin: Positive for laceration. Musc: Negative for joint pain. EXAM Physical Exam Narrative Exam Narrative: CONST: Patient sitting in no acute distress. EYES: Normal inspection. SKIN: 1.5 cm curved flap type laceration left great toe just proximal to the toenail. The flap is still adhered. There is no active bleeding. There is no swelling or bruising of the foot, full range of motion of ankle and toes, normal strength and sensation, 2+ DP pulse. No nail injury or subungual hematoma. EXTREMITIES: Normal appearance, no pedal edema. NEURO: Alert and answering basic questions appropriately, demented. PSYCH: Normal affect. Const Vital Signs: 01/20/25 14:28 Temperature 98 F Temperature Source Oral Pulse Rate 83 Respiratory Rate 16 Blood Pressure 134/77 H Blood Pressure Mean 96 Pulse Ox 98 Physical Exam Const Vital Signs: 01/20/25 14:28 Temperature 98 F Temperature Source Oral Pulse Rate 83 Respiratory Rate 16 Blood Pressure 134/77 H Blood Pressure Mean 96 Pulse Ox 98 PROC Procedures Lacerations Left great toe: Length: 1.5 cm Depth: Skin Shape: Flap Prep: Sterile Conditions Laceration repair: Irrigated and Wound explored Number of Sutures/Evan: 4 Suture Information: Ethilon and 5-0 MDM MDM MDM Narrative Medical decision making narrative: History of from: Patient and her Differential: Toe laceration, I do not suspect a fracture 84-year-old female has a 1.5 cm curved flap laceration on the left great toe proximal to the nail. There is no nail injury or subungual hematoma. There is no swelling or bony tenderness and the extremity is neurovascularly intact so I do not think x-rays are indicated. Let gel was applied. I thoroughly cleansed the area and repaired with 4 sutures. See procedure note. She was given a tetanus update and wound care instructions and discharged in stable condition. I have personally performed a face to face assessment of the patient and have reviewed the CECY Note. I performed a substantive portion of the visit including all aspects of the following. My meraz findings include: 84-year-old female wooden shelf dropped and lacerated top of her right great toe. Unsure last tetanus. No other injuries. Denies any significant toe pain currently. Patient accompanied by famil (more content not included)... Normal [facility] Oncology Visit Reporton Oncology Visit Report [facility] [place] [facility] [address] 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 ER: Positive, >95% NV: Negative, 0%, Her2 annie: 2+ by immunohistochemistry [...] breast, muscle ache/stiffness, urinary complaints, jaw pain. [facility] Medical History Osteopenia Invasive ductal carcinoma of [...] 19.7 20.0 (more content not included)... Normal [facility] CBC W/Diff, Automatedon 01-0 8 Absolute Lymph 1.55 X10 3/uL Normal 0.83-4.51 [facility] Comment on above: Performed By: #### L 100.0100, L500.4050, L501.2300, L506.1000 ####[facility] [address] [place], [place], [id number] Absolute Neut 4.6 X10 3/uL Normal 2.0-7.7 [facility] Comment on above: Performed By: #### L 100.0100, L500.4050, L501.2300, L506.1000 ####[facility] [address] [place], [address] Basophils/100 WBC (Bld) 0.7 % Normal 0-1 [facility] Comment on above: Performed By: #### L 100.0100, L500.4050, L501.2300, L506.1000 ####[facility] [address] [place], [address] Eosinophils/100 WBC (Bld) 0.9 % Normal 0-5 [facility] Comment on above: Performed By: #### L 100.0100, L500.4050, L501.2300, L506.1000 ####[facility] [address] [place], [address] Erythrocyte distribution width (RBC) [Ratio] 13.5 % Normal 11.6-14.6 [facility] Comment on above: Performed By: #### L 100.0100, L500.4050, L501.2300, L506.1000 ####[facility] [address] [place], [address] Hematocrit (Bld) [Volume fraction] 35.1 % Low 37-47 [facility] Comment on above: Performed By: #### L 100.0100, L500.4050, L501.2300, L506.1000 ####[facility] [address] [place], [address] Hemoglobin (Bld) [Mass/Vol] 11.7 g/dL Low 12.0-15.0 [facility] Comment on above: Performed By: #### L 100.0100, L500.4050, L501.2300, L506.1000 ####[facility] [address] [place], [address] IG% 0.400 Normal 0.0-0.9 [facility] Comment on above: Result Comment: IG% - Immature Granulocytes (promyelocytes, myelocytes and metamyelocytes) > 1% indicates that a LEFT SHIFT is Present. Performed By: #### L 100.0100, L500.4050, L501.2300, L506.1000 ####[facility] [address] [place], [address] Lymphocytes/100 WBC (Bld) 23.0 % Normal 19-41 [facility] Comment on above: Performed By: #### L 100.0100, L500.4050, L501.2300, L506.1000 ####[facility] [address] [place], [address] MCH (RBC) [Entitic mass] 31.9 pg Normal 27.0-32.0 [facility] Comment on above: Performed By: #### L 100.0100, L500.4050, L501.2300, L506.1000 ####[facility] [address] [place], [address] MCHC (RBC) [Mass/Vol] 33.3 g/dL Normal 32-36 [facility] Comment on above: Performed By: #### L 100.0100, L500.4050, L501.2300, L506.1000 ####[facility] [address] [place], [address] MCV (RBC) [Entitic vol] 95.6 fL Normal 81-99 [facility] Comment on above: Performed By: #### L 100.0100, L500.4050, L501.2300, L506.1000 ####[facility] [address] [place], [address] Monocytes/100 WBC (Bld) 6.4 % Normal 0-10 [facility] Comment on above: Performed By: #### L 100.0100, L500.4050, L501.2300, L506.1000 ####[facility] [address] [place], [address] Neutrophils/100 WBC (Bld) 68.6 % Normal 47-70 [facility] Comment on above: Performed By: #### L 100.0100, L500.4050, L501.2300, L506.1000 ####[facility] [address] [place], [address] Nucleated RBC (Bld) [#/Vol] 0 10*3/uL Normal 0-5 [facility] Comment on above: Performed By: #### L 100.0100, L500.4050, L501.2300, L506.1000 ####[facility] [address] [place], [address] Platelet mean volume (Bld) [Entitic vol] 11.6 fL Normal 6.2-12.0 [facility] Comment on above: Performed By: #### L 100.0100, L500.4050, L501.2300, L506.1000 ####[facility] [address] [place], [address] Platelets (Bld) [#/Vol] 188 10*3/uL Normal 150-450 [facility] Comment on above: Performed By: #### L 100.0100, L500.4050, L501.2300, L506.1000 ####[facility] [address] [place], [address] RBC (Bld) [#/Vol] 3.67 10*6/uL Low 4.2-5.4 [facility] Comment on above: Performed By: #### L 100.0100, L500.4050, L501.2300, L506.1000 ####[facility] [address] [place], [address] RDW SD 47.7 fl High 35.1-43.9 [facility] Comment on above: Performed By: #### L 100.0100, L500.4050, L501.2300, L506.1000 ####[facility] [address] [place], [address] WBC (Bld) [#/Vol] 6.7 10*3/uL Normal 4.4-11.0 [facility] Comment on above: Performed By: #### L 100.0100, L500.4050, L501.2300, L506.1000 ####[facility] [address] [place], [address] Comprehensive Metabolic Prof ilon 08-01-2024 Albumin [Mass/Vol] 3.7 g/dL Normal 3.2-5.0 [facility] Comment on above: Performed By: #### L 100.0100, L500.4050, L501.2300, L506.1000 ####[facility] [address] [place], [address] Albumin/Globulin [Mass ratio] 1.1 {ratio} Normal 0.9-2.4 [facility] Comment on above: Performed By: #### L 100.0100, L500.4050, L501.2300, L506.1000 ####[facility] [address] [place], [address] ALK P 70 U/L Normal 45-117 [facility] Comment on above: Performed By: #### L 100.0100, L500.4050, L501.2300, L506.1000 ####[facility] [address] [place], [address] ALT [Catalytic activity/Vol] 13 U/L Normal 13-56 [facility] Comment on above: Performed By: #### L 100.0100, L500.4050, L501.2300, L506.1000 ####[facility] [address] [place], [address] AST [Catalytic activity/Vol] 16 U/L Normal 15-37 [facility] Comment on above: Performed By: #### L 100.0100, L500.4050, L501.2300, L506.1000 ####[facility] [address] [place], [address] Bilirubin [Mass/Vol] 0.30 mg/dL Normal 0.20-1.00 [facility] Comment on above: Result Comment: For patients on eltrombopag therapy, use of Dimension [place] TBIL is not recommended. Performed By: #### L 100.0100, L500.4050, L501.2300, L506.1000 ####[facility] [address] [place], [address] BUN/CRE 25.7 RATIO High 10-20 [facility] Comment on above: Performed By: #### L 100.0100, L500.4050, L501.2300, L506.1000 ####[facility] [address] [place], [address] CA,Total 9.1 mg/dL Normal 8.5-10.1 [facility] Comment on above: Performed By: #### L 100.0100, L500.4050, L501.2300, L506.1000 ####[facility] [address] [place], [address] Chloride [Moles/Vol] 103 mmol/L Normal 98-107 [facility] Comment on above: Performed By: #### L 100.0100, L500.4050, L501.2300, L506.1000 ####[facility] [address] [place], [address] CO2 [Moles/Vol] 31.0 mmol/L Normal 21.0-32.0 [facility] Comment on above: Performed By: #### L 100.0100, L500.4050, L501.2300, L506.1000 ####[facility] [address] [place], [address] Creatinine [Mass/Vol] 0.97 mg/dL Normal 0.55-1.02 [facility] Comment on above: Result Comment: The validity of the calculated GFR GFRAA in patients over 70 years has not been determined. Clinical correlation is essential. Performed By: #### L 100.0100, L500.4050, L501.2300, L506.1000 ####[facility] [address] [place], [address] EST GFR - AA 70 mL/min Normal >60 [facility] Comment on above: Result Comment: Afri can [place] GFR Calc Performed By: #### L 100.0100, L500.4050, L501.2300, L506.1000 ####[facility] [address] [place], [address] GAP 6 Normal 5-15 [facility] Comment on above: Performed By: #### L 100.0100, L500.4050, L501.2300, L506.1000 ####[facility] [address] [place], [address] GFR/1.73 sq M.predicted among non-blacks MDRD (S/P/Bld) [Vol rate/Area] 58 mL/min/{1.73_m2} Low >60 [facility] Comment on above: Result Comment: Non- GFR Calc Performed By: #### L 100.0100, L500.4050, L501.2300, L506.1000 ####[facility] [address] [place], [address] Globulin (S) [Mass/Vol] 3.4 g/dL Normal 2.2-4.2 [facility] Comment on above: Performed By: #### L 100.0100, L500.4050, L501.2300, L506.1000 ####[facility] [address] [place], [address] Glucose [Mass/Vol] 123 mg/dL High 74-106 [facility] Comment on above: Result Comment: Fast ing Glucose result from 100 to 125 mg/dL suggests IMPAIRED HOMEOSTASIS per A.D.A. criteria. Performed By: #### L 100.0100, L500.4050, L501.2300, L506.1000 ####[facility] [address] [place], [address] Potassium [Moles/Vol] 3.7 mmol/L Normal 3.5-5.1 [facility] Comment on above: Performed By: #### L 100.0100, L500.4050, L501.2300, L506.1000 ####[facility] [address] [place], [address] Sodium [Moles/Vol] 140 mmol/L Normal 136-145 [facility] Comment on above: Performed By: #### L 100.0100, L500.4050, L501.2300, L506.1000 ####[facility] [address] [place], [address] T PROT 7.1 g/dL Normal 6.4-8.2 [facility] Comment on above: Performed By: #### L 100.0100, L500.4050, L501.2300, L506.1000 ####[facility] [address] [place], [address] Urea nitrogen [Mass/Vol] 25 mg/dL High 7-18 [facility] Comment on above: Performed By: #### L 100.0100, L500.4050, L501.2300, L506.1000 ####[facility] [address] [place], [address] Oncology Visit Reporton Oncology Visit Report [facility] [address] 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 ER: Positive, >95% NV: Negative, 0%, Her2 annie: 2+ by immunohistochemistry [...] breast, muscle ache/stiffness, urinary complaints, jaw pain. [facility] Medical History Osteopenia Invasive ductal carcinoma of [...] 19.2 19 (more content not included)... Normal [facility] Phosphoruson 08-01-2024 Phosphate [Mass/Vol] 3.4 mg/dL Normal 2.5-4.9 [facility] Comment on above: Performed By: #### L 100.0100, L500.4050, L501.2300, L506.1000 ####[facility] [address] [place], [address] Vitamin D,25 Hydroxyon 08-01 Vitamin D 25-OH 34.3 ng/mL Normal [facility] Comment on above: Result Comment: Analisa min D 25(OH) Status Range Deficiency <20 ng/mL (50nmol/L) Insufficiency 20 - 30 ng/mL (50 - 75 nmol/L) Sufficiency 30 - 100 ng/mL (75 - 250 nmol/L) Toxicity >100 ng/mL (>250 nmol/L) Performed By: #### L 100.0100, L500.4050, L501.2300, L506.1000 ####[facility] [address] [place], [address] Oncology Visit Reporton Oncology Visit Report [facility] [address] [place] [address] OFFICE VISIT Date of Service: 04/30/24 1445 MR#: [id number] Acct: [id number] Name: ESTRADA MURO Rep #: [id number] : 1940 From: Laurence Mayer MD Age/Sex: 83/F Location: [facility] [place] Status: Signed HPI Subjective Date of Service [...] present Additional Findings: None Breast Marker Study: [id number] ER: >95% NV: 0% Her2: 2+ (equivocal) Ki67:5% Negative for overexpression of VPE3lut by FISH April 04, 2024 left breast [...] Ancillary studies: Previously performed on same tumor ([id number] / [id number]). ER: Positive, >95% NV: Negative, 0%, Her2 annie: 2+ by immunohistochemistry and not amplified (1.1) by in situ hybridization Ki67: 5% Clinical history: Mass of breast PATHOLOGIC STAGE: T1c Nx Mx Treatment summary and response: March 2024 left breast lumpectomy. [facility] Medical History Wears hearing aid Wears glasses [...] Medications ???Medicati (more content not included)... Normal [facility] Surgery Visit Reporton 04-30 Surgery Visit Report [facility] [address] [place] [address] OFFICE VISIT Date of Service: 04/30/24 MR#: [id number] Acct: [id number] Name: ESTRADA MURO Rep #: [id number] : 1940 Provider: KASSANDRA skaggs Age/Sex: 83/F Location: [facility] Status: Signed Intake Vital Signs 04/04/24 09:43 [...] Z98.890 Invasive ductal carcinoma of breast C50.919 [facility] Medical History Wears hearing aid Wears glasses [...] Antonella Loyola DO; Dr. Miguel Mariee MD [facility] Surgery Visit Reporton 04-16 Surgery Visit Report [facility] [address] [place] [address]. [address] [place] [address] OFFICE VISIT Date of Service: 04/16/24 MR#: [id number] Acct: [id number] Name: ESTRADA MURO Rep #: [id number] : 1940 Provider: Dr. Miguel chatterjee MD Age/Sex: 83/F Location: [facility] Status: Signed Intake Vital Signs 04/04/24 09:43 [...] Z98.890 Invasive ductal carcinoma of breast C50.919 [facility] Medical History (Updated 04/16/24 @ 16:56 by [...] oncology 04/16/24 1657 Date Miguel Mariee MD [facility] Signature: Date (if applicable) CC: Dr. Antonella Loyola, DO Normal [facility] Discharge Instructionon 03-25 Discharge Instruction [facility] Medical Records Department [address] [place] [address] Instructions for Home/Discharge Instructions 04/04/24 1214 MR#: [id number] Acct: [id number] Name: ESTRADA MURO Rep #: [id number] : 1940 83 From: Miguel Mariee MD PCP: Dr. Antonella Loyola, DO Status:[place] [facility] [place]charge Instructions Diet Discharge Diet: No restrictions [...] Care Provider: Antonella Loyola Instructions Print Language: Wolof Discharge Orders/Prescriptions Prescriptions: Continued levothyroxine [Synthroid] 88 [...] MD CC: Dr. Antonella Loyola DO Signed Normal [facility] MR/POSTOP.Scout 04-04-2024 MR/POSTOP.[facility] Medical Records Department [address] [place] [address] Anesthesia Postop Eval I 04/04/24 1145 MR#: [id number] Acct: [id number] Name: ESTRADA MURO Bhanu Rep #: [id number] : 1940 83 From: Edgar Tovar MD PCP: Dr. Antonella Loyola, DO Status:REG SDC Y Race: C Location: [place] [address] Anesthesia: Postop Eval I Current Vital Signs [...] Tovar MD Cosigner Signature: Date CC: Signed Normal [facility] MR/LDUJERIH6rt 04-04-2024 [facility] Medical Records Department [address] [place] [address] Anesthesia Postop Eval II 04/04/24 1239 MR#: [id number] Acct: [id number] Name: ESTRADA MURO Rep #: [id number] : 1940 83 From: Huey Damico MD PCP: Dr. Antonella Loyola, DO Status:REG SDC Y Race: C Location: [place] [address] Anesthesia Postop Eval I Sum Postop Eval [...] Huey Guillaume Signature: Date CC: Signed Normal [facility] Operative Reporton 4 Operative Report [facility] Medical Records Department [address] [place] [address] Operative Report 04/04/24 1211 MR#: [id number] Acct: [id number] Name: ESTRADA MURO Rep #: [id number] : 1940 83 From: Miguel Mariee MD PCP: Dr. Antonella Loyola, DO Status:[facility] Location: [place] [address] Report of Operation Date of Procedure: 04/04/24 Pre-Operative Diagnosis: Left breast cancer Post-Operative Diagnosis: Same Surgery/Procedure Performed:: Left breast lumpectomy Description of Surgical Findings:: ??? Firm tissue along the deep margin but remaining cavity demonstrated no palpable irregularities ??? Specimen oriented and marked with suture short superior long lateral Surgeon: Miguel Mariee route sales driver: Diamond Macias Type of Anesthesia: MAC/Supplemental/Local Anesthesiologist: [...] Used: None Complications None Procedures Integumentary 16xxx-193xx: 21143 Partial mastectomy 04/04/24 1322 Cosigner Signature (if applicable): CC: Dr. Antonella Loyola DO; Dr. Miguel Mariee MD Signed Normal [facility] Surgery Specimen Level Von 0 04-04-2024 Surgery Specimen Level V Patient Age/Sex Location Account Attending Physician ESTRADA MURO 83/F [facility] [id number] Dr. Miguel Mariee MD Specimen: [id number] Received: 04/05/24 Status: YFN [place] Num: [id number] Spec Type: BREAST Subm Dr: Dr. Miguel [...] Location Account Attending Physician ESTRADA MURO 83/F [facility] [id number] Dr. Miguel Mariee MD Additional pathologic findings: Changes of previous biopsy, mild fibrocystic change and associated microcalcifications Ancillary studies: Previously performed on same tumor ([id number] / [id number]). ER: Positive, >95% NV: Negative, 0%, Her2 annie: 2+ by immunohistochemistry and not amplified (1.1) by in situ hybridization Ki67: 5% Clinical history: Mass of breast PATHOLOGIC STAGE: T1c Nx Mx The above summary is in compliance with College of [place] Pathology (CAP) Cancer Protocols Checklist and [place] Joint Committee on Cancer (AJCC), Staging Manual, [...] submitted in nine cassettes after additional fixation. AM/mr 04/05/2024 TC:0 CPT:61651 Patient Age/Sex Location Account Attending Physician ESTRADA MURO 83/F [facility] [id number] Dr. Miguel Mariee MD Signed (signature on file) Dr. Levi Rose, 04/09/24 1256 Normal [facility] Comment on above: Performed By: #### P SUV #### [facility] [address] [place], [place], [address] Surgery Visit Reporton 03-29 Surgery Visit Report [facility] [address] [place] [address] OFFICE VISIT Date of Service: 03/29/24 MR#: [id number] Acct: [id number] Name: ESTRADA MURO Rep #: [id number] : 1940 Provider: Dr. Miguel chatterjee MD Age/Sex: 83/F Location: [facility] Status: Signed Intake Vital Signs 03/14/24 15:28 [...] stent, palpitati (more content not included)... Normal [facility] Oncology Visit Reporton 02-23 Oncology Visit Report [facility] [address] [place] [address] OFFICE VISIT Date of Service: 03/14/24 1520 MR#: [id number] Acct: [id number] Name: BHASKARESTRADA Rep #: [id number] : 1940 From: Laurence Mayer MD Age/Sex: 83/F [place] [facility] Status: Signed HPI Subjective Date of Service [...] present Additional Findings: None Breast Marker Study: [id number] ER: >95% NV: 0% Her2: 2+ (equivocal) Ki67:5% Negative for overexpression of VOO8wpc by FISH [facility] Medical History Osteoporosis Anxiety Depression Non-smoker Migraines [...] 14 mg PO QDAY 02/22/24 03/14/24 History sprtinole,extend (more content not included)... Normal [facility] ER (initial)on 02-29-2024 ER (initial) --- Patient Age/Sex Location Account Attending Physician ESTRADA MURO 83/F [facility] [id number] Dr. Miguel Mariee MD Specimen: [id number] Received: 03/02/24 Status: YFN [facility] Num: [id number] Spec Type: IMMUNO Subm Dr: Dr. Miguel Mariee MD THIS IS A CORRECTED REPORT 03/06/24-1213 PHYSICIAN INSTITUTION [place] [address] SPECIMEN INFORMATION: Tissue Source: Left breast biopsy Clinical Info: Abnormal mammogram Specimen Number: [id number] CPT code: 24289,62749v9,81025h0 METHODOLOGY: Deparaffinized sections of prefer/formalin-fixed tissue or PAP/DQ stained slides are incubated with monoclonal/polyclonal antibodies/oligonucleot jignesh probes. Localization is made via biotin free immunoperoxidase method. Appropriate controls are performed and reacted as expected. Results on target cell population are indicated in the following table: RESULTS: ANTIBODY / CLONE RESULT P53 (DO-7) positive, wild type pattern Ki-67 (30-9) positive, 5% CK8 (76tcmiR83) positive CK5-6 (D5 1684) negative Calponin-1 (FL257I) negative P40 (BC28) negative E-Cad (ECH-6) positive MOC-31 (4561) negative MORPHOMETRIC ANALYSIS ER (clone 6F11) >95, strong intensity NV (clone 16/1E2) 0% Her-2Neu (clone CB11) 2+ The test for HER 2 is performed on formalin-fixed paraffin embedded tissue using the CB11 mouse monoclonal antibody ([employer]). A 3+ staining pattern is interpreted as positive and is defined as a strong membranous staining involving the entire cell membrane in over 30% of invasive tumor cells. A similar weak staining pattern (2+) involving 10% of the tumor cells is interpreted as equivocal. HER 2 follow-up testing by FISH is recommended for all equivocal results. Reference: [place] Society of Clinical Oncology and the College of [place] Pathology (J. Clin. Oncol. 23: 118-145, 2007). Fixative Used: Formalin; Duration of Fixation: 28 Hours.; Sample Adequate: Yes Patient Age/Sex Location Account Attending Physician ESTRADA MURO 83/F [facility] [id number] Dr. 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 Positive for estrogen receptors (favorable prognostic indicator). Negative for progesterone receptors (favorable prognostic indicator). Equivocal for overexpression of PKV8dyy. 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 Positive for estrogen receptors (favorable prognostic indicator). Negative for progesterone receptors (favorable prognostic indicator). Negative for overexpression of ZFS6hcs. / 03/06/2024 IN SITU HYBRIDIZATION (ROSINA) FOR HER2 [...] Factor Receptor 2 Testing in Breast Cancer: [place] Society of Clinical Oncology / College of [place] Pathologists Clinical Practice Guideline Update. J Clin Oncol 31:4927-3551, 2013. Patient Age/Sex Location Account Attending Physician ESTRADA MURO 83/F [facility] [id number] Dr. Miguel Mariee MD --- (more content not included)... Normal [facility] Comment on above: Performed By: #### P ER #### [facility] [address] [place], [place], [id number] Surgery Specimen Level Genet 02-29-2024 Surgery Specimen Level IV Patient Age/Sex Location Account Attending Physician ESTRADA MURO 83/F [facility] [id number] Dr. Miguel Mariee MD Specimen: [id number] Received: 02/29/24 Status: YFN [place] Num: [id number] Spec Type: BREAST BX Subm Dr: Dr. [...] present Additional Findings: None Breast Marker Study: [id number] ER: >95% NV: 0% Her2: 2+ (equivocal) Ki67:5% The above summary is in compliance with College of [place] Pathology (CAP) Cancer Protocols Checklist and [place] Joint Committee on Cancer (AJCC), Staging Manual, 8th Ed. Case has been reviewed in consultation with Dr. Carrillo who concurs with the above diagnosis. IDC:SJ Patient Age/Sex Location Account Attending Physician ESTRADA MURO 83/F [facility] [id number] Dr. Miguel Mariee MD MICROSCOPIC DESCRIPTION Slides are reviewed. GROSS DESCRIPTION Received in fixative is one container labeled with the patient's name and designated Left breast tissue. The specimen consists of multiple elongated fragments of rosenthal-yellow fibroadipose tissue measuring in aggregate 1.5 x 0.5 x 0.1cm. The entire specimen is submitted in one cassette. JORGE/ 03/01/2024 TC:0 CPT:08021 Patient Age/Sex Location Account Attending Physician BHASKARESTRADA Wolfe Bhanu 83/F [facility] [id number] Dr. Miguel Mariee MD Signed (signature on file) Dr. Levi Rose DO 03/05/24 1212 Normal [facility] Comment on above: Performed By: #### P SUIV ####[facility] [address] [place], [address] Surgery Visit Reporton 02-28 Surgery Visit Report [facility] [address] [place] [address] OFFICE VISIT Date of Service: 02/29/24 MR#: [id number] Acct: [id number] Name: ESTRADA MURO Rep #: [id number] : 1940 Provider: Dr. Miguel chatterjee MD Age/Sex: 83/F Location: [facility] Status: Signed Intake Vital Signs 02/22/24 10:23 [...] in the past year?: No (None disclosed) PFSH Medical History Anxiety Depression Non-smoker Migraines Thyroid [...] nipple. Office (more content not included)... Normal [facility] Breast Limited Unilateralon 02-24-2024 Breast Limited Unilateral [facility] Imaging Services [address] [place] [address] Breast Limited Unilateral MR#: [id number] Acct: [id number] Name: ESTRADA MURO Rep #: [id number] : 1940 F 83 From: Yang fuchs MD PCP: Dr. Antonella Loyola, DO Status: REG CLI Study: Breast Limited Unilateral Date of Exam: Exam# [id number] Ordering Dr: [place] [id number] STUDY: ULTRASOUND BREAST - LEFT REASON FOR [...] Signed: Yang Bolden MD at 14:53 EDT , CC: Dr. Antonella Loyola DO; Dr. Miguel Mariee MD Rim Roller Setter: Signed Normal [facility] Absolute lymphocyte countOrd ered By: Al Bassett on 07-04-2023 Lymphocytes Auto (Unsp spec) [#/Vol] 0.58 10*3/uL 0.83-4.51 [facility] Basophil percentageOrdered B y: Alangelia Singletaryo on 07-04-2023 Basophils/100 WBC (Bld) 0.5 % 0-1 [facility] Chloride [Moles/Vol] 103 mmol/L 98-107 [facility] Eosinophils/100 WBC (Bld) 0.2 % 0-5 [facility] Glucose [Mass/Vol] 124 mg/dL 74-106 [facility] Comment on above: Fasting Glucose resu lt from 100 to 125 mg/dL suggests IMPAIRED HOMEOSTASIS per A.D.A. criteria. Neutrophils (Bld) [#/Vol] 7.4 10*3/uL 2.0-7.7 [facility] Neutrophils/100 WBC (Bld) 84.9 % 47-70 [facility] Potassium [Moles/Vol] 3.5 mmol/L 3.5-5.1 [facility] Sodium [Moles/Vol] 137 mmol/L 136-145 [facility] WBC (Bld) [#/Vol] 8.7 10*3/uL 4.4-11.0 [facility] Blood erythrocytes count (nu mber/volume)Ordered By: Alangelia Bassett on 07-04-2023 RBC (Bld) [#/Vol] 3.81 10*6/uL 4.2-5.4 [facility] Blood hemoglobin measurement (mass/volume)Ordered By: Alangelia Bassett on 07-04-2023 Hemoglobin (Bld) [Mass/Vol] 12.0 g/dL 12.0-15.0 [facility] Blood lymphocytes/100 leukoc ytesOrdered By: Alangelia Bassett on 07-04-2023 Lymphocytes/100 WBC (Bld) 6.7 % 19-41 [facility] Blood manual differential co mment interpretation (narrative result)Ordered By: Alangelia Bassett on 07-04-2023 Manual differential comment Jason (Bld) [Interp] SCANNED [facility] Blood monocytes/100 leukocyt esOrdered By: Al Bassett on 07-04-2023 Monocytes/100 WBC (Bld) 7.2 % 0-10 [facility] Blood platelet mean volumeOr dered By: Al Bassett on 07-04-2023 Platelet mean volume (Bld) [Entitic vol] 12.4 fL 6.2-12.0 [facility] Determination of erythrocyte mean corpuscular volume (MCV)Ordered By: Al Bassett on 07-04-2023 MCV (RBC) [Entitic vol] 98.7 fL 81-99 [facility] Erythrocyte sedimentation ra teOrdered By: Alangelia Bassett on 07-04-2023 ESR (Bld) [Velocity] 19 mm/h 0-30 [facility] Hematocrit Auto (Bld) [Volum e fraction]Ordered By: Al Bassett on 07-04-2023 Hematocrit (Bld) [Volume fraction] 37.6 % 37-47 [facility] - Chemistry and C hemistry - challengeOrdered By: Alangelia Bassett on 07-04-2023 CO2 [Moles/Vol] 28.0 mmol/L 21.0-32.0 [facility] Urea nitrogen/Creatinine [Mass ratio] 21.5 mg/mg 10-20 [facility] - Hematology and Cell countsOrdered By: Alangelia Bassett on 07-04-2023 Erythrocyte distribution width (RBC) [Entitic vol] 49.3 fL 35.1-43.9 [facility] Erythrocyte distribution width (RBC) [Ratio] 13.5 % 11.6-14.6 [facility] Immature granulocytes/100 WBC (Bld) 0.500 % 0.0-0.9 [facility] Comment on above: IG% - Immature Granu locytes (promyelocytes, myelocytes and metamyelocytes) > 1% indicates that a LEFT SHIFT is Present. MCH (RBC) [Entitic mass] 31.5 pg 27.0-32.0 [facility] Nucleated RBC/100 WBC (Bld) [Ratio] 0 % 0-5 [facility] MCHC Auto (RBC) [Mass/Vol]Or dered By: Al Bassett on 07-04-2023 MCHC (RBC) [Mass/Vol] 31.9 g/dL 32-36 [facility] No Panel InformationOrdered By: Al Bassett on 07-04-2023 Estimated Creatinine Clearance Calc 44.19 ml/min [facility] Estimated GFR (MDRD) Amer 79 mL/min >60 [facility] Comment on above: GFR Calc Estimated GFR (MDRD) Non-Af Amer 65 mL/min >60 [facility] Comment on above: Non- GFR Calc Platelets bldOrdered By: Al Bassett on 07-04-2023 Platelets (Bld) [#/Vol] 163 10*3/uL 150-450 [facility] Serum or plasma calcium enrrique urement (mass/volume)Ordered By: Al Bassett on 07-04-2023 Calcium [Mass/Vol] 8.8 mg/dL 8.5-10.1 [facility] Serum or plasma creatinine m easurement (mass/volume)Ordered By: Al Bassett on 07-04-2023 Creatinine [Mass/Vol] 0.88 mg/dL 0.55-1.02 [facility] Comment on above: The validity of the calculated GFR & GFRAA in patients over 70 years has not been determined. Clinical correlation is essential. Serum or plasma urea nitroge n measurement (mass/volume)Ordered By: Al Bassett on 07-04-2023 Urea nitrogen [Mass/Vol] 19 mg/dL 7-18 [facility] Thin prep Papanicolaou smear with manual screeningOrdered By: Al Bassett on 07-04-2023 Thin prep Papanicolaou smear with manual screening 6 5-15 [facility] Absolute lymphocyte countOrd ered By: Antonella Loyola on 01-19-2023 Lymphocytes Auto (Unsp spec) [#/Vol] 1.59 10*3/uL 0.83-4.51 [facility] Basophil percentageOrdered B y: Antonella Loyola on 01-19-2023 Basophils/100 WBC (Bld) 1.1 % 0-1 [facility] Bilirubin [Mass/Vol] 0.30 mg/dL 0.20-1.00 [facility] Comment on above: For patients on eltr ombopag therapy, use of Dimension [place] TBIL is not recommended. Chloride [Moles/Vol] 107 mmol/L 98-107 [facility] Cholesterol [Mass/Vol] 208 mg/dL <200 [facility] Comment on above: <200 mg/dL Desirable 200-240 mg/dL Borderline >240 mg/dL High Risk Eosinophils/100 WBC (Bld) 1.3 % 0-5 [facility] Glucose [Mass/Vol] 79 mg/dL 74-106 [facility] Neutrophils (Bld) [#/Vol] 3.4 10*3/uL 2.0-7.7 [facility] Neutrophils/100 WBC (Bld) 61.4 % 47-70 [facility] Potassium [Moles/Vol] 4.0 mmol/L 3.5-5.1 [facility] Protein [Mass/Vol] 6.8 g/dL 6.4-8.2 [facility] Sodium [Moles/Vol] 139 mmol/L 136-145 [facility] Triglyceride [Mass/Vol] 67 mg/dL <199 [facility] Comment on above: The drugs N-Acetylcy steine and Metamizole may falsely depress this assay.Serum Triglycerides Reference Interval Normal <150 mg/dL Borderline high 150 - 199 mg/dL High 200 - 499 mg/dL Very High > or = 500 mg/dL WBC (Bld) [#/Vol] 5.5 10*3/uL 4.4-11.0 [facility] Blood erythrocytes count (nu mber/volume)Ordered By: Antonella Loyola on 01-19-2023 RBC (Bld) [#/Vol] 3.68 10*6/uL 4.2-5.4 [facility] Blood hemoglobin measurement (mass/volume)Ordered By: Antonella Loyola on 01-19-2023 Hemoglobin (Bld) [Mass/Vol] 11.8 g/dL 12.0-15.0 [facility] Blood lymphocytes/100 leukoc ytesOrdered By: Antonella Loyola on 01-19-2023 Lymphocytes/100 WBC (Bld) 28.8 % 19-41 [facility] Blood monocytes/100 leukocyt esOrdered By: Antonella Loyola on 01-19-2023 Monocytes/100 WBC (Bld) 7.2 % 0-10 [facility] Blood platelet mean volumeOr dered By: Antonella Loyola on 01-19-2023 Platelet mean volume (Bld) [Entitic vol] 11.5 fL 6.2-12.0 [facility] Determination of erythrocyte mean corpuscular volume (MCV)Ordered By: Antonella Loyola on 01-19-2023 MCV (RBC) [Entitic vol] 100.0 fL 81-99 [facility] Hematocrit Auto (Bld) [Volum e fraction]Ordered By: Antonella Loyola on 01-19-2023 Hematocrit (Bld) [Volume fraction] 36.8 % 37-47 [facility] Laboratory - Chemistry and C hemistry - challengeOrdered By: Antonella Loyola on 01-19-2023 ALP [Catalytic activity/Vol] 58 U/L 45-117 [facility] ALT [Catalytic activity/Vol] 15 U/L 13-56 [facility] CO2 [Moles/Vol] 29.0 mmol/L 21.0-32.0 [facility] Cobalamin (Vitamin B12) [Mass/Vol] 1610 pg/mL 211-911 [facility] Free T4 [Mass/Vol] 0.89 ng/dL 0.76-1.46 [facility] Globulin (S) [Mass/Vol] 3.6 g/dL 2.2-4.2 [facility] Urea nitrogen/Creatinine [Mass ratio] 20.4 mg/mg 10-20 [facility] Laboratory - Hematology and Cell countsOrdered By: Antonella Loyola on 01-19-2023 Erythrocyte distribution width (RBC) [Entitic vol] 50.5 fL 35.1-43.9 [facility] Erythrocyte distribution width (RBC) [Ratio] 13.7 % 11.6-14.6 [facility] Immature granulocytes/100 WBC (Bld) 0.200 % 0.0-0.9 [facility] Comment on above: IG% - Immature Granu locytes (promyelocytes, myelocytes and metamyelocytes) > 1% indicates that a LEFT SHIFT is Present. MCH (RBC) [Entitic mass] 32.1 pg 27.0-32.0 [facility] Nucleated RBC/100 WBC (Bld) [Ratio] 0 % 0-5 [facility] MCHC Auto (RBC) [Mass/Vol]Or dered By: Antonella Loyola on 01-19-2023 MCHC (RBC) [Mass/Vol] 32.1 g/dL 32-36 [facility] No Panel InformationOrdered By: Antonella Loyola on 01-19-2023 Estimated GFR (MDRD) Amer 74 mL/min >60 [facility] Comment on above: GFR Calc Estimated GFR (MDRD) Non-Af Amer 61 mL/min >60 [facility] Comment on above: Non- GFR Calc Free Triiodothyronine (T3) pg/dL 1.7 pg/mL 2.18-3.98 [facility] Thyroid Stimulating Hormone (TSH) 1.87 uIU/mL 0.358-3.74 [facility] Platelets bldOrdered By: Aurelia Loyola on 01-19-2023 Platelets (Bld) [#/Vol] 240 10*3/uL 150-450 [facility] Serum or plasma albumin enrrique urement (mass/volume)Ordered By: Antonella Loyola on 01-19-2023 Albumin [Mass/Vol] 3.2 g/dL 3.2-5.0 [facility] Serum or plasma albumin/glob ulin mass ratioOrdered By: Antonella Loyola on 01-19-2023 Albumin/Globulin [Mass ratio] 0.9 {ratio} 0.9-2.4 [facility] Serum or plasma calcium enrrique urement (mass/volume)Ordered By: Antonella Loyola on 01-19-2023 Calcium [Mass/Vol] 9.0 mg/dL 8.5-10.1 [facility] Serum or plasma cholesterol in HDL measurement (mass/volume)Ordered By: Antonella Loyola on 01-19-2023 Cholesterol in HDL [Mass/Vol] 79 mg/dL >40 [facility] Comment on above: The drugs N-Acetylcy steine and Metamizole may falsely depress this assay. Reference Range HDL <40 mg/dL Low HDL Cholesterol HDL >or= 60 mg/dL High HDL Cholesterol Serum or plasma cholesterol in VLDL measurement (mass/volume)Ordered By: Antonella Loyola on 01-19-2023 Cholesterol in VLDL [Mass/Vol] 13 mg/dL 5-40 [facility] Serum or plasma creatinine m easurement (mass/volume)Ordered By: Antonella Loyola on 01-19-2023 Creatinine [Mass/Vol] 0.93 mg/dL 0.55-1.02 [facility] Comment on above: The validity of the calculated GFR & GFRAA in patients over 70 years has not been determined. Clinical correlation is essential. Serum or plasma low density lipoprotein (LDL) cholesterol measurement (mass/volume)Ordered By: Antonella Loyola on 01-19-2023 Cholesterol in LDL [Mass/Vol] 116 mg/dL 0-130 [facility] Serum or plasma urea nitroge n measurement (mass/volume)Ordered By: Antonella Loyola on 01-19-2023 Urea nitrogen [Mass/Vol] 19 mg/dL 7-18 [facility] Thin prep Papanicolaou smear with manual screeningOrdered By: Antonella Loyola on 01-19-2023 Thin prep Papanicolaou smear with manual screening 18 U/L 15-37 [facility] Thin prep Papanicolaou smear with manual screening 3 5-15 [facility] Absolute lymphocyte counton 05-27-2022 Lymphocytes Auto (Unsp spec) [#/Vol] 0.34 10*3/uL 0.83-4.51 [facility] Work Phone: Basophil percentageon 2021 Basophil percentage 0 SEEN /hpf 0-5 [facility] Work Phone: Basophils/100 WBC (Bld) 0.3 % 0-1 [facility] Work Phone: Chloride [Moles/Vol] 102 mmol/L 98-107 [facility] Work Phone: Eosinophils/100 WBC (Bld) 2.0 % 0-5 [facility] Work Phone: Glucose [Mass/Vol] 108 mg/dL 74-106 [facility] Work Phone: Comment on above: Fasting Glucose resu lt from 100 to 125 mg/dL suggests IMPAIRED HOMEOSTASIS per A.D.A. criteria. Neutrophils (Bld) [#/Vol] 4.9 10*3/uL 2.0-7.7 [facility] Work Phone: Neutrophils/100 WBC (Bld) 81.2 % 47-70 [facility] Work Phone: Potassium [Moles/Vol] 3.5 mmol/L 3.5-5.1 [facility] Work Phone: Sodium [Moles/Vol] 138 mmol/L 136-145 [facility] Work Phone: WBC (Bld) [#/Vol] 6.0 10*3/uL 4.4-11.0 [facility] Work Phone: Bilirubin Test strip Ql (U)o n 05-27-2022 Bilirubin Ql (U) Negative Negative [facility] Work Phone: Blood erythrocytes count (nu mber/volume)on 05-27-2022 RBC (Bld) [#/Vol] 3.59 10*6/uL 4.2-5.4 [facility] Work Phone: Blood hemoglobin measurement (mass/volume)on 05-27-2022 Hemoglobin (Bld) [Mass/Vol] 11.5 g/dL 12.0-15.0 [facility] Work Phone: Blood lymphocytes/100 leukoc yteson 05-27-2022 Lymphocytes/100 WBC (Bld) 5.6 % 19-41 [facility] Work Phone: Blood manual differential co mment interpretation (narrative result)on 05-27-2022 Manual differential comment Jason (Bld) [Interp] SCANNED [facility] Work Phone: Comment on above: LYMPHOPENIA NOTED Blood monocytes/100 leukocyt eson 05-27-2022 Monocytes/100 WBC (Bld) 10.6 % 0-10 [facility] Work Phone: Blood platelet mean volumeon 05-27-2022 Platelet mean volume (Bld) [Entitic vol] 11.1 fL 6.2-12.0 [facility] Work Phone: [phone] Determination of erythrocyte mean corpuscular volume (MCV)on 05-27-2022 MCV (RBC) [Entitic vol] 95.8 fL 81-99 [facility] Work Phone: [phone] Hematocrit Auto (Bld) [Volum e fraction]on 05-27-2022 Hematocrit (Bld) [Volume fraction] 34.4 % 37-47 [facility] Work Phone: [phone] Ketones Test strip Ql (U)on 05-27-2022 Ketones Ql (U) 5 mg/dl Negative [facility] Work Phone: [phone] Laboratory - Chemistry and C hemistry - challengeon 05-27-2022 CO2 [Moles/Vol] 29.0 mmol/L 21.0-32.0 [facility] Work Phone: [phone] Urea nitrogen/Creatinine [Mass ratio] 18.5 mg/mg 10-20 [facility] Work Phone: [phone] Laboratory - Hematology and Cell countson 05-27-2022 Erythrocyte distribution width (RBC) [Entitic vol] 46.7 fL 35.1-43.9 [facility] Work Phone: [phone] Erythrocyte distribution width (RBC) [Ratio] 13.2 % 11.6-14.6 [facility] Work Phone: [phone] Immature granulocytes/100 WBC (Bld) 0.300 % 0.0-0.9 [facility] Work Phone: [phone] Comment on above: IG% - Immature Granu locytes (promyelocytes, myelocytes and metamyelocytes) > 1% indicates that a LEFT SHIFT is Present. MCH (RBC) [Entitic mass] 32.0 pg 27.0-32.0 [facility] Work Phone: [phone] Nucleated RBC/100 WBC (Bld) [Ratio] 0 % 0-5 [facility] Work Phone: [phone] MCHC Auto (RBC) [Mass/Vol]on 05-27-2022 MCHC (RBC) [Mass/Vol] 33.4 g/dL 32-36 [facility]: Mucus LM Ql (Urine sed)on Mucus Ql (Urine sed) 0 SEEN /hpf [facility] Work Phone: Nitrite Test strip Ql (U)on 05-27-2022 Nitrite Ql (U) Negative Negative [facility] Work Phone: No Panel Informationon 05-27 Estimated Creatinine Clearance Calc 48.22 ml/min [facility] Work Phone: Estimated GFR (MDRD) Amer 76 mL/min >60 [facility] Work Phone: Comment on above: GFR Calc Estimated GFR (MDRD) Non-Af Amer 63 mL/min >60 [facility] Work Phone: Comment on above: Non- GFR Calc Platelets bldon 05-27-2022 Platelets (Bld) [#/Vol] 205 10*3/uL 150-450 [facility] Work Phone: Protein Test strip Ql (U)on 05-27-2022 Protein Ql (U) Negative Negative [facility] Work Phone: Serum or plasma calcium enrrique urement (mass/volume)on 05-27-2022 Calcium [Mass/Vol] 9.1 mg/dL 8.5-10.1 [facility] Work Phone: Serum or plasma creatinine m easurement (mass/volume)on 05-27-2022 Creatinine [Mass/Vol] 0.92 mg/dL 0.55-1.02 [facility] Work Phone: Comment on above: The validity of the calculated GFR & GFRAA in patients over 70 years has not been determined. Clinical correlation is essential. Serum or plasma urea nitroge n measurement (mass/volume)on 05-27-2022 Urea nitrogen [Mass/Vol] 17 mg/dL 7-18 [facility] Work Phone: Squamous epithelial cells de tection in urine sediment by light microscopyon 05-27-2022 Epithelial cells.squamous LM Ql (Urine sed) 0 SEEN /hpf 5-10 [facility] Work Phone: Thin prep Papanicolaou smear with manual screeningon 05-27-2022 Thin prep Papanicolaou smear with manual screening 7 5-15 [facility] Work Phone: Urine blood detectionon RBC Ql (U) Negative Negative [facility] Work Phone: RBC Ql (U) 0 SEEN /hpf 0-5 [facility] Work Phone: Urine clarityon 05-27-2022 Clarity (U) Clear Clear [facility] Work Phone: Urine color determinationon 05-27-2022 Color (U) Yellow Yellow [facility] Work Phone: Urine glucose detectionon Glucose Ql (U) Normal mg/dl Normal [facility] Work Phone: Urine leukocyte esterase det ection by dipstickon 05-27-2022 Leukocyte esterase Test strip Ql (U) Negative Negative [facility] Work Phone: Urine pHon 05-27-2022 pH (U) 7.0 [pH] 5.0 - 8.0 [facility] Work Phone: Urine sediment bacteria coun t by microscopy (number/high power field)on 05-27-2022 Bacteria LM.HPF (Urine sed) [#/Area] 0 /[HPF] None Seen [facility] Work Phone: Urine specific gravity measu rementon 05-27-2022 Specific gravity (U) [Rel density] 1.010 1.002-1.030 [facility] Work Phone: Urobilinogen Auto test strip Ql (U)on 05-27-2022 Urobilinogen Ql (U) Normal mg/dl Normal [facility] Work Phone: Absolute lymphocyte counton 01-01-2022 Lymphocytes Auto (Unsp spec) [#/Vol] 1.64 10*3/uL 0.83-4.51 [facility] Work Phone: Basophil percentageon 2021 Basophil percentage 0-5 SEEN /hpf 0-5 [facility] Work Phone: Basophils/100 WBC (Bld) 0.7 % 0-1 [facility] Work Phone: Bilirubin [Mass/Vol] 0.30 mg/dL 0.20-1.00 [facility] Work Phone: Comment on above: For patients on eltr ombopag therapy, use of Dimension [place] TBIL is not recommended. Chloride [Moles/Vol] 107 mmol/L 98-107 [facility] Work Phone: Eosinophils/100 WBC (Bld) 1.8 % 0-5 [facility] Work Phone: Glucose [Mass/Vol] 81 mg/dL 74-106 [facility] Work Phone: Neutrophils (Bld) [#/Vol] 3.6 10*3/uL 2.0-7.7 [facility] Work Phone: Neutrophils/100 WBC (Bld) 60.7 % 47-70 [facility] Work Phone: Potassium [Moles/Vol] 4.1 mmol/L 3.5-5.1 [facility] Work Phone: Protein [Mass/Vol] 6.7 g/dL 6.4-8.2 [facility] Work Phone: Sodium [Moles/Vol] 140 mmol/L 136-145 [facility] Work Phone: WBC (Bld) [#/Vol] 6.0 10*3/uL 4.4-11.0 [facility] Work Phone: Bilirubin Test strip Ql (U)o n 01-01-2022 Bilirubin Ql (U) Negative Negative [facility] Work Phone: Blood erythrocytes count (nu mber/volume)on 01-01-2022 RBC (Bld) [#/Vol] 3.57 10*6/uL 4.2-5.4 [facility] Work Phone: Blood hemoglobin measurement (mass/volume)on 01-01-2022 Hemoglobin (Bld) [Mass/Vol] 11.2 g/dL 12.0-15.0 [facility] Work Phone: Blood lymphocytes/100 leukoc yteson 01-01-2022 Lymphocytes/100 WBC (Bld) 27.5 % 19-41 [facility] Work Phone: Blood monocytes/100 leukocyt eson 01-01-2022 Monocytes/100 WBC (Bld) 9.0 % 0-10 [facility] Work Phone: Blood platelet mean volumeon 01-01-2022 Platelet mean volume (Bld) [Entitic vol] 12.7 fL 6.2-12.0 [facility] Work Phone: Determination of erythrocyte mean corpuscular volume (MCV)on 01-01-2022 MCV (RBC) [Entitic vol] 98.0 fL 81-99 [facility] Work Phone: Erythrocyte sedimentation ra trent 01-01-2022 ESR (Bld) [Velocity] 16 mm/h 0-30 [facility] Work Phone: [phone] Hematocrit Auto (Bld) [Volum e fraction]on 01-01-2022 Hematocrit (Bld) [Volume fraction] 35.0 % 37-47 [facility] Work Phone: Ketones Test strip Ql (U)on 01-01-2022 Ketones Ql (U) Negative Negative [facility] Work Phone: Laboratory - Chemistry and C hemistry - challengeon 01-01-2022 ALP [Catalytic activity/Vol] 56 U/L 45-117 [facility] Work Phone: ALT [Catalytic activity/Vol] 20 U/L 13-56 [facility] Work Phone: CO2 [Moles/Vol] 29.0 mmol/L 21.0-32.0 [facility] Work Phone: Free T4 [Mass/Vol] 1.25 ng/dL 0.76-1.46 [facility] Work Phone: [phone] Globulin (S) [Mass/Vol] 3.3 g/dL 2.2-4.2 [facility] Work Phone: [phone] Urea nitrogen/Creatinine [Mass ratio] 25.0 mg/mg 10-20 [facility] Work Phone: [phone] Laboratory - Hematology and Cell countson 01-01-2022 Erythrocyte distribution width (RBC) [Entitic vol] 47.1 fL 35.1-43.9 [facility] Work Phone: [phone] Erythrocyte distribution width (RBC) [Ratio] 13.1 % 11.6-14.6 [facility] Work Phone: [phone] Immature granulocytes/100 WBC (Bld) 0.300 % 0.0-0.9 [facility] Work Phone: [phone] Comment on above: IG% - Immature Granu locytes (promyelocytes, myelocytes and metamyelocytes) > 1% indicates that a LEFT SHIFT is Present. MCH (RBC) [Entitic mass] 31.4 pg 27.0-32.0 [facility] Work Phone: [phone] Nucleated RBC/100 WBC (Bld) [Ratio] 0 % 0-5 [facility] Work Phone: [phone] MCHC Auto (RBC) [Mass/Vol]on 01-01-2022 MCHC (RBC) [Mass/Vol] 32.0 g/dL 32-36 [facility] Work Phone: [phone] Mucus LM Ql (Urine sed)on Mucus Ql (Urine sed) 0 SEEN /hpf [facility] Work Phone: [phone] Nitrite Test strip Ql (U)on 01-01-2022 Nitrite Ql (U) Negative Negative [facility] Work Phone: [phone] Panel Informationon 01-01 Estimated GFR (MDRD) Amer 80 mL/min >60 [facility] Work Phone: [phone] Comment on above: GFR Calc Estimated GFR (MDRD) Non-Af Amer 66 mL/min >60 [facility] Work Phone: [phone] Comment on above: Non- GFR Calc Free Triiodothyronine (T3) pg/dL 2.3 pg/mL 2.18-3.98 [facility] Work Phone: [phone] Thyroid Stimulating Hormone (TSH) 0.22 uIU/mL 0.358-3.74 [facility] Work Phone: [phone] Platelets bldon 01-01-2022 Platelets (Bld) [#/Vol] 184 10*3/uL 150-450 [facility] Work Phone: [phone] Protein Test strip Ql (U)on 01-01-2022 Protein Ql (U) Negative Negative [facility] Work Phone: [phone] Serum or plasma C reactive p rotein measurement (mass/volume)on 01-01-2022 CRP [Mass/Vol] mg/L 0.0-3.0 [facility] Work Phone: Comment on above: C-Reactive Protein ( CRP) provides useful information for thediagnosis, therapy and monitoring of inflammatory processesand associated diseases. For the evaluation of Relative Riskfor Cardiovascular Disease, a High Sensitivity CRP (HSCRP)should be ordered. Serum or plasma albumin enrrique urement (mass/volume)on 01-01-2022 Albumin [Mass/Vol] 3.4 g/dL 3.2-5.0 [facility] Work Phone: [phone] Serum or plasma albumin/glob ulin mass ratioon 01-01-2022 Albumin/Globulin [Mass ratio] 1.0 {ratio} 0.9-2.4 [facility] Work Phone: [phone] Serum or plasma calcium enrrique urement (mass/volume)on 01-01-2022 Calcium [Mass/Vol] 8.8 mg/dL 8.5-10.1 [facility] Work Phone: [phone] Serum or plasma creatinine m easurement (mass/volume)on 01-01-2022 Creatinine [Mass/Vol] 0.88 mg/dL 0.55-1.02 [facility] Work Phone: Comment on above: The validity of the calculated GFR & GFRAA in patients over 70 years has not been determined. Clinical correlation is essential. Serum or plasma urea nitroge n measurement (mass/volume)on 01-01-2022 Urea nitrogen [Mass/Vol] 22 mg/dL 7-18 [facility] Work Phone: Serum or plasma uric acid me asurement (mass/volume)on 01-01-2022 Urate [Mass/Vol] 4.7 mg/dL 2.6-6.0 [facility] Work Phone: Comment on above: The drugs N-Acetylcy steine and Metamizole may falsely depress this assay. Squamous epithelial cells de tection in urine sediment by light microscopyon 01-01-2022 Epithelial cells.squamous LM Ql (Urine sed) 0-5 SEEN /hpf 5-10 [facility] Work Phone: Thin prep Papanicolaou smear with manual screeningon 01-01-2022 Thin prep Papanicolaou smear with manual screening 18 U/L 15-37 [facility] Work Phone: Thin prep Papanicolaou smear with manual screening 4 5-15 [facility] Work Phone: Urine blood detectionon 12-23 RBC Ql (U) Negative Negative [facility] Work Phone: RBC Ql (U) 0 SEEN /hpf 0-5 [facility] Work Phone: Urine clarityon 01-01-2022 Clarity (U) Sl. Cloudy Clear [facility] Work Phone: Urine color determinationon 01-01-2022 Color (U) Yellow Yellow [facility] Work Phone: Urine glucose detectionon Glucose Ql (U) Normal mg/dl Normal [facility] Work Phone: Urine leukocyte esterase det ection by dipstickon 01-01-2022 Leukocyte esterase Test strip Ql (U) 25 /ul Negative [facility] Work Phone: Urine pHon 01-01-2022 pH (U) 6.5 [pH] 5.0 - 8.0 [facility] Work Phone: Urine sediment bacteria coun t by microscopy (number/high power field)on 01-01-2022 Bacteria LM.HPF (Urine sed) [#/Area] 1 /[HPF] None Seen [facility] Work Phone: Urine specific gravity measu rementon 01-01-2022 Specific gravity (U) [Rel density] 1.015 1.002-1.030 [facility] Work Phone: Urobilinogen Auto test strip Ql (U)on 01-01-2022 Urobilinogen Ql (U) Normal mg/dl Normal [facility] Work Phone: Culture, urine Bacteria identified Cx Nom (U) Corynebacterium jeikeium [facility] Work Phone: Bacteria identified Cx Nom (U) Corynebacterium urealyticum [facility] Work Phone: Bacteria identified Cx Nom (U) Mixed Culture [facility] Work Phone: Bacteria identified Cx Nom (U) Positive [facility] Work Phone: No Panel Information SARS-CoV-2 & FLU Antigen (Rapid) [facility] Work Phone: Vital Signs Date Time Vital Sign Value Performing Clinician Faci lity 01-28-2025 13:58-0400 Body height 167.[address] Antonella Loyola DO Work Phone: [facility] 01-28-2025 13:09-0400 Body height 167.[address] Antonella Loyola DO Work Phone: [facility] 01-28-2025 13:09-0400 Body mass index (BMI) [Ratio] 20 kg/m2 Dr. Antonella Loyola DO Work Phone: [facility] 01-28-2025 13:09-0400 Body temperature 96.8 [degF] Dr. Antonella Loyola DO Work Phone: [facility] 01-28-2025 13:09-0400 Body weight 56.[address] Antonella Loyola DO Work Phone: [facility] 01-28-2025 13:09-0400 Diastolic blood pressure 90 mm[Hg] Dr. Antonella Loyola DO Work Phone: [facility] 01-28-2025 13:09-0400 Heart rate 72 /min Dr. Antonella Loyola DO Work Phone: [facility] 01-28-2025 13:09-0400 Respiratory rate 13 /min Dr. Antonella Loyola DO Work Phone: [facility] 01-28-2025 13:09-0400 SaO2% (BldA) [Mass fraction] 96 % Dr. Antonella Loyola DO Work Phone: [facility] 01-28-2025 13:09-0400 Systolic blood pressure 158 mm[Hg] Dr. Antonella Loyola DO Work Phone: [facility] 01-20-2025 14:28-0400 Body height 167.[address] Antonella Loyola DO Work Phone: [facility] 01-20-2025 14:28-0400 Body mass index (BMI) [Ratio] 21.7 kg/m2 Dr. Antonella Loyola DO Work Phone: [facility] 01-20-2025 14:28-0400 Body temperature 98 [degF] Dr. Antonella Loyola DO Work Phone: [facility] 01-20-2025 14:28-0400 Body weight 61.[address] Antonella Loyola DO Work Phone: [facility] 01-20-2025 14:28-0400 Diastolic blood pressure 77 mm[Hg] Dr. Antonella Loyola DO Work Phone: [facility] 01-20-2025 14:28-0400 Heart rate 83 /min Dr. Antonella Loyola DO Work Phone: [facility] 01-20-2025 14:28-0400 Respiratory rate 16 /min Dr. Antonella Loyola DO Work Phone: [facility] 01-20-2025 14:28-0400 SaO2% (BldA) [Mass fraction] 98 % Dr. Antonella Loyola DO Work Phone: [facility] 01-20-2025 14:28-0400 Systolic blood pressure 134 mm[Hg] Dr. Antonella Loyola DO Work Phone: [facility] 10-29-2024 13:27-0400 Body mass index (BMI) [Ratio] 20 kg/m2 Dr. Antonella Loyola DO Work Phone: [facility] 10-29-2024 13:27-0400 Body temperature 98 [degF] Dr. Antonella Loyola DO Work Phone: [facility] 10-29-2024 13:27-0400 Body weight 56.[address] Antonella Loyola DO Work Phone: [facility] 10-29-2024 13:27-0400 Diastolic blood pressure 89 mm[Hg] Dr. Antonella Loyola DO Work Phone: [facility] 10-29-2024 13:27-0400 Heart rate 73 /min Dr. Antonella Loyola DO Work Phone: [facility] 10-29-2024 13:27-0400 Respiratory rate 16 /min Dr. Antonella Loyola DO Work Phone: [facility] 10-29-2024 13:27-0400 SaO2% (BldA) [Mass fraction] 93 % Dr. Antonella Loyola DO Work Phone: [facility] 10-29-2024 13:27-0400 Systolic blood pressure 156 mm[Hg] Dr. Antonella Loyola DO Work Phone: [facility] 08-01-2024 14:45-0500 Body mass index (BMI) [Ratio] 19.7 kg/m2 Dr. Antonella Loyola DO Work Phone: [facility] 07-04-2023 17:35-0500 Body height 177.8 cm [facility] 07-04-2023 17:35-0500 Body mass index (BMI) [Ratio] 18.3 kg/m2 [facility] 07-04-2023 17:35-0500 Body temperature 97.5 [degF] [facility] 07-04-2023 17:35-0500 Body weight 58.05 kg [facility] 07-04-2023 17:35-0500 Diastolic blood pressure 91 mm[Hg] [facility] 07-04-2023 17:35-0500 Heart rate 89 /min [facility] 07-04-2023 17:35-0500 Respiratory rate 16 /min [facility] 07-04-2023 17:35-0500 SaO2% (BldA) [Mass fraction] 96 % [facility] 07-04-2023 17:35-0500 Systolic blood pressure 170 mm[Hg] [facility] 07-04-2023 11:13-0500 Diastolic blood pressure 89 mm[Hg] [facility] 07-04-2023 11:13-0500 Heart rate 74 /min [facility] 07-04-2023 11:13-0500 Respiratory rate 16 /min [facility] 07-04-2023 11:13-0500 SaO2% (BldA) [Mass fraction] 97 % [facility] 07-04-2023 11:13-0500 Systolic blood pressure 161 mm[Hg] [facility] 07-04-2023 09:20-0500 Body mass index (BMI) [Ratio] 18.9 kg/m2 [facility] 07-04-2023 09:20-0500 Body weight 54.9 kg [facility] 07-04-2023 09:12-0500 Body height 170.18 cm [facility] 07-04-2023 09:12-0500 Body temperature 97.5 [degF] [facility] 11-23-2022 12:11-0400 Body height 170.[address] Antonella Loyola Work Phone: [facility] 11-03-2022 10:56-0400 Body height 170.[address] Antonella Loyola Work Phone: [facility] 11-03-2022 10:56-0400 Body mass index (BMI) [Ratio] 21 kg/m2 Dr. Antonella Loyola Work Phone: [facility] 11-03-2022 10:56-0400 Body weight 60.[address] Antonella Loyola Work Phone: [facility] 05-27-2022 22:19-0400 Diastolic blood pressure 72 mm[Hg] [facility] Work Phone: 05-27-2022 22:19-0400 Heart rate 76 /min [facility] Work Phone: 05-27-2022 22:19-0400 Respiratory rate 16 /min [facility] Work Phone: 05-27-2022 22:19-0400 SaO2% (BldA) [Mass fraction] 96 % [facility] Work Phone: 05-27-2022 22:19-0400 Systolic blood pressure 145 mm[Hg] [facility] Work Phone: 05-27-2022 18:59-0400 Body height 170.18 cm [facility] Work Phone: 05-27-2022 18:59-0400 Body mass index (BMI) [Ratio] 21.8 kg/m2 [facility] Work Phone: 05-27-2022 18:59-0400 Body weight 63.2 kg [facility] Work Phone: 05-27-2022 18:03-0400 Body temperature 97.8 [degF] [facility] Work Phone: Encounters Encounter Date Encounter Type Care Provider Facility Start: 02-15-2025 End: 02-15-[address] Antonella Loyola DO Work Phone: -[facility] Start: 02-15-2025 End: 02-15-2025 Patient encounter procedure Cecilia Campbell FINANCE BUSINESS MANAGER-C -[facility] Work Phone: Start: 02-15-2025 End: 02-15-2025 ambulatory Antonella Loyola Facility:[facility] Start: 01-28-2025 Registered Recurring Cecilia Campbell FINANCE BUSINESS MANAGER-C -[facility] Start: 01-28-2025 End: 01-28-[address] Laurence Mayer MD -[facility] Work Phone: Start: 01-28-2025 End: 01-28-[address] Antonella Loyola DO Work Phone: -[facility] Start: 01-22-2025 Non-patient / Non-visit Dr. Cherie pineda MD -[facility] Work Phone: Start: 01-20-2025 End: 01-20-2025 Emergency department patient visit Dr. Antonella Loyola DO Work Phone: -Emergency Department Work Phone: Start: 10-29-2024 End: 10-29-2024 Patient encounter procedure Cecilia Campbell FINANCE BUSINESS MANAGER-C -[facility] Work Phone: Start: 10-29-2024 End: 10-29-2024 ambulatory Cecilia Campbell FINANCE BUSINESS MANAGER Facility:[facility] Start: 08-01-2024 End: 08-01-2024 ambulatory Antonella Loyola Facility:[facility] Start: 04-30-2024 End: 04-30-2024 ambulatory Antonella Loyola Facility:[facility] Start: 04-16-2024 End: 04-16-2024 ambulatory Antonella Loyola Facility:[facility] Start: 04-04-2024 ambulatory Miguel Mariee Facility: [facility] Start: 04-04-2024 End: 04-04-2024 ambulatory Miguel Mariee Facility:[facility] Start: 03-29-2024 End: 03-29-2024 ambulatory Antonella Loyola Facility:[facility] Start: 03-14-2024 End: 03-14-2024 ambulatory Antonella Loyola Facility:[facility] Start: 02-29-2024 End: 02-29-2024 ambulatory Antonella Loyola Facility:[facility] Start: 02-29-2024 End: 02-29-2024 ambulatory Miguel Mariee Facility:[facility] Start: 02-24-2024 End: 02-24-2024 [facility] Start: 07-04-2023 End: 07-04-2023 Emergency department patient visit [facility]-Emergency Department Work Phone: Start: 07-04-2023 End: 07-04-2023 Emergency department patient visit [facility]-Emergency Department Work Phone: Start: 01-19-2023 End: 01-19-[address] Antonella Loyola Work Phone: [facility] Work Phone: Start: 01-19-2023 End: 01-19-[address] Antonella Loyola Work Phone: [facility] Work Phone: Start: 11-24-2022 End: 11-24-[address] Antonella Loyola Work Phone: [facility] Work Phone: Start: 11-13-2022 End: 11-13-[address] Antonella Loyola Work Phone: [facility] Work Phone: Start: 11-13-2022 End: 11-13-[address] Antonella Loyola Work Phone: [facility] Start: 11-03-2022 End: 11-03-[address] Antonella Loyola Work Phone: [facility] Start: 05-27-2022 End: 05-27-2022 Emergency department patient visit [facility]-Emergency Department Start: 04-22-2022 End: 04-22-2022 ambulatory [facility] Work Phone: Start: 04-22-2022 End: 04-22-2022 Patient encounter procedure [facility]-Laboratory, Specimen Start: 01-28-2022 End: 01-28-2022 Patient encounter procedure [facility]-Cardiovascular Services Start: 01-21-2022 End: 01-21-2022 Patient encounter procedure [facility]-Laboratory, Specimen Start: 01-01-2022 End: 01-01-2022 Patient encounter procedure [facility]-Laboratory, Cope Procedures Date Procedure Procedure Detail Performing Clinician Start: 02-15-2025 Screening mammography Mayi Loyola DO Work Phone: Start: 01-28-[address] Antonella Loyola DO Work Phone: Start: 01-28-2025 Serum inorganic phos phate measurement Dr. Antonella Loyola DO Work Phone: Start: 08-01-2024 Measurement of renal function Dr. Antonella Loyola DO Work Phone: Comment on above: GFR Calc Start: 08-01-2024 Vitamin D, 25-hydrox y measurement Dr. Antonella Loyola DO Work Phone: Comment on above: Vitamin D 25(OH) Sta tus Range Deficiency <20 ng/mL (50nmol/L) Insufficiency 20 - 30 ng/mL (50 - 75 nmol/L) Sufficiency 30 - 100 ng/mL (75 - 250 nmol/L) Toxicity >100 ng/mL (>250 nmol/L) Start: 07-04-2023 CT of head without contrast Start: 11-13-2022 MRI of lumbar spine Dr. Antonella Loyola Work Phone: Start: 11-03-2022 X-ray of lumbar spin e, two or three views Dr. Antonella Loyola Work Phone: Start: 05-27-2022 CT of head without contrast SARS-CoV-2 & FLU Ant igen (Rapid) Urine culture Plan of Treatment Date Care Activity Detail Author Start: 02-15-2025 MG Breast - bilatera l Screening [facility] Start: 01-28-2025 [facility] Start: 01-20-2025 [facility] Start: 01-20-2025 Simple repair scalp/neck/ax/genit/trunk 2.5cm/< RPR S/N/AX/GEN/TRNK 2.5CM/< [facility] Start: 07-04-2023 [facility] Start: 07-04-2023 [facility] Start: 11-24-2022 Patient referral [facility] Work Phone: Start: 01-01-2022 Bacteria identified in Urine by Culture Urine Culture [facility] Work Phone: CBC W Auto Different ial panel - Blood [facility] Comprehensive metabo lic 2000 panel - Serum or Plasma [facility] Patient Education [facility] Work Phone: Patient referral [facility] Work Phone: Immunizations Immunization Date Immunization Notes Care Provider Fa cility 01-20-2025 tetanus toxoid, redu jess diphtheria toxoid, and acellular pertussis vaccine, adsorbed Dr. Antonella Loyola DO Work Phone: [facility] 05-03-2018 Influenza virus vaccine [facility] 08-02-2013 Influenza virus vaccine [facility] Payers Date Payer Category Payer Self-pay [id number] 2015 Private Health Insurance [id number] 2007 Medicare [id number] Unknown [id number] 2.16.8 [id number] Unknown [id number] 2.16.8 [id number] Unknown [id number] 2.16.8 [id number] Unknown [id number] 2.16.8 [id number] Unknown [id number] 2.16.8 [id number] Unknown [id number] 2.16.8 40.1.037009.3.579.2.462 Unknown [id number] 2.16.8 [id number] Unknown [id number] 2.16.8 40.1.732626.3.579.2.462 Unknown [id number] 2.16.8 40.1.487313.3.579.2.462 Unknown [id number] 2.16.8 40.1.080574.3.579.2.462 Unknown [id number] 2.16.8 40.1.773182.3.579.2.462 Unknown [id number] 2.16.8 40.1.285180.3.579.2.462 Unknown [id number] 2.16.8 40.1.443087.3.579.2.462 Unknown [id number] 2.16.8 [id number] Unknown [id number] 2.16.8 [id number] Unknown [id number] 2.16.8 [id number] Social History Date Type Detail Facility Start: 03-20-2021 End: 07-04-2023 Tobacco smoking status GAIS Unknown if ever smoked [facility] Start: 08-09-2018 Rare [facility] Start: 08-09-2018 None [facility] Start: 09-10-2020 Spouse/ Signif icant Other [facility] Start: 08-10-2018 Non-smoker [facility] Start: 1940 Sex Assigned At Female [facility] Start: 01-20-2025 Tobacco smoking status NHIS Never smoked tobacco (finding) [facility] Medical Equipment Procedure Code Equipment Code Equipment Origin al Text Equipment Identifier Dates Lumpectomy, breast, with needle localization SUTURE,LIGA CLIP SM LT-100 FDA Start: 04-04-2024 Lumpectomy, breast, with needle localization SUTURE,LIGA CLIP SM LT-100 FDA Start: 04-04-2024 Lumpectomy, breast, with needle localization SUTURE,LIGA CLIP SM LT-100 FDA Start: 04-04-2024 Mental Status Date Assessment Result Facility 01-28-2025 Cognitive function Awake;Appropr iate;Follows Commands [facility] Work Phone: 08-01-2024 Cognitive function Awake;Alert;A ppropriate;Follo ws Commands [facility] Work Phone: 07-04-2023 Cognitive function Level Of Consciousness Awake [facility] Work Phone: 07-04-2023 Cognitive function Level Of Cons ciousness Awake;Appropriate;Follows Commands;Disoriented [facility] Work Phone: 05-27-2022 Cognitive function Appropriate;Cooperativ e [facility] Work Phone: Clinical Notes 07-04-2023 to 01-28-2025 Note Date & Type Note Facility 01-28-2025 Progress note [facility] 10-29-2024 Evaluation note Diagnosis Onset Date Resolution Invasive ductal carcinoma of breast acute October 29 1:14pm [facility] Work Phone: 1(728) 509-557204-07-2025 Evaluation note* Diagnosis Onset Date Resolution Status Admit Date Invasive ductal carcinoma of breast acute October 29, 2024 1:14pm Invasive ductal carcinoma of breast acute January 28, 2025 1 2:43pm [facility] Work Phone: 1(216) 913-226109-11-2024 [facility] Medical Records Department [address] [place] [address] History Physical Exam 04/04/24 1041 MR#: [id number] Acct: [id number] Name: ESTRADA MURO Rep #: [id number] : 1940 83 From: Miguel Mariee MD PCP: Dr. Antonella Loyola, DO [place] [facility] [place]: [place] [address] History and Physical Date of Service: 03/29/24 MR#: [id number] Acct: [id number] Name: ESTRADA MURO Rep #: [id number] : 1940 Provider: Dr. Miguel Mariee MD Age/Sex: 83/F Location: [facility] Status: Signed Intake Vital Signs 03/14/2415:28 03/29/2408:07 [...] Breast Breast: Yes ab (more content not included)...[facility] 07-04-2023 Discharge summary Author Marcos Beckford [facility] July 04, 2023 7:35pm Note Date/Time July 04, 2023 6:26pm [facility] Medical Records Department [address] [place] [address] Emergency Department Summary 07/04/23 MR#: [id number] Acct: [id number] Name: ESTRADA MURO Rep #:[id number] : [...] so he returned to the emergency department. [facility] Medical History Anxiety Arthritis Depression Enteritis Environmental [...] sinus headache. They were told to use wvxg-cwh-zbrrqan medications such as Claritin, and Coricidin HBP [...] if not improving Activity Restrictions/Additional Instructions: Use ndxk-zko-epcedot medications like Claritin is an antihistamine. You [...] your Primary Care Provider. Call [facility] ([phone]) or report to the closest Emergency Room. Call 911 if necessary. 07/04/231934 <Electronically signed by Marcos Beckford MD> Cosigner Signature (if applicable): CC: Dr. Antonella Loyola DO ~ Signed [facility] Work Phone: Discharge summary Author [facility] July 04, 2023 11:11am Note Date/Time July 04, 2023 10:06am [facility] Medical Records Department [address] [place] [address] Emergency Department Summary 07/04/23 MR#: [id number] Acct: [id number] Name: ESTRADA MURO Rep #:[id number] : 1940 82 From: Al Bassett MD PCP: Dr. Antonella Loyola DO Status:REG ER Location: ED HPI History [...] There is no clonus right or left. [place] Coma Scale: document GCS findings Spontaneous Obeys [...] 84.9 H Lymph % (Auto) 6.7 L Alfalfa % (Auto) 7.2 Eos % (Auto) 0.2 [...] your Primary Care Provider. Call [facility] ([phone]) or report to the closest Emergency Room. Call 911 if necessary. 07/04/23 1111 <Electronically signed by Al Bassett MD> Cosigner Signature (if applicable): CC: Dr. Antonella Loyola DO ~ Signed [facility] Work Phone: Evaluation noteNo assessment information available [facility] Work Phone: Evaluation note* Diagnosis Onset Date Resolution Status Degenerative spondylolisthesis acute [facility] Work Phone: Evaluation note* Diagnosis Onset Date Resolution Status Degenerative spondylolisthesis acute Degenerative spondylolisthesis acute Spinal stenosis at L4-L5 level acute [facility] Work Phone: Hospital Discharge instructions Additional Instructions Use rccr-jfm-yijgqce medications like Claritin is an antihistamine. You may also use a decongestant such as Coricidin HBP. Avoid use of pseudoephedrine or products that will elevate her blood pressure. You may use the nasal steroid 1 spray per nostril per day for up to 5 days.[facility] Work Phone: Hospital Discharge instructionsAdditional Instructions Keep the area clean. Pat dry after showering. You can apply bacitracin and a bandage. The stitches need removed in 10 days. Please be seen immediately if you develop signs of infection like significant redness, swelling, pus, increased pain or fever.[facility] Work Phone: Progress note Author Laurence Mayer [facility] Note Date/Time January 28, 2025 1:47p m [facility] [address] [place] [address] OFFICE VISIT Date of Service: 01/28/25 1308 MR#: [id number] Acct: [id number] Name: ESTRADA MURO Rep #: [id number] : 1940 From: Laurence obrien MD Age/Sex: 84/F Location[place] [facility] Status: Signed HPI Subjective Date of Service 01/28/25 Chief Complaint Breast cancer History of Present Illness 84-year-old female underwent a screening mammogram on February 15, 2024 which showeda 1.1 x 0.8 cm spiculated nodule in [...] present Additional Findings: None Breast Marker Study: [id number] ER: >95% NV: 0% Her2: 2+ (equivocal) Ki67:5% Negative for overexpression of YPA3srm by FISH April 04, 2024 left breast [...] muscle: No skeletal muscle present Histologic Grade ([place] grade): Glandular/tubular differentiation score: 2 Nuclear pleomorphism [...] Ancillary studies: Previously performed on same tumor ([id number] / [id number]). ER: Positive, >95% NV: Negative, 0%, Her2 annie: 2+ by immunohistochemistry and not amplified (1.1) by in situ hybridization Ki67: 5% Clinical history: Mass of breast PATHOLOGIC STAGE: T1c Nx Mx Treatment summary and response: March 2024 left breast lumpectomy. April 2024 anastrozole [facility] Medical History Screening for breast cancer Osteopenia Invasive ductal carcinoma of breast, stage [...] type: does not use ROS ROS Narrative Seen with her who provided most of her history Review of Systems ROS Unobtainable: due to mental condition Constitutional Constitutional: Reports systems reviewed and no addt'l complaints, except as documented; Denies anorexia or weight loss Eyes Eyes: Reports systems reviewed and no addt'l complaints, except as documented ENT HEENT: Reports systems reviewed and no addt'l complaints, except as documented; Denies dental pain Cardiovascular Cardiovascular: Reports systems reviewed and no addt'l complaints, except as documented; Denies chest pain with activity or edema Respiratory/Chest Respiratory/Chest: Reports systems reviewed and no addt'l complaints, except as documented; Denies dyspnea Gastrointestinal Gastrointestinal: Reports systems reviewed and no addt'l complaints, except as documented; Denies abdominal pain, change in bowel habits, hematochezia or melena Genitourinary Genitourinary: Reports systems reviewed and no addt'l complaints, except as documented Musculoskeletal Musculoskeletal: Reports systems reviewed and no addt'l complaints, except as documented; Denies arthralgias or back pain Integumentary Integumentary: Reports systems reviewed and no addt'l complaints, except as documented; Denies new lesions Neurologic Neurologic: Reports systems reviewed and no addt'l complaints, except as documented; Denies focal weakness or frequent falls Psychiatric Psychiatric: Reports systems reviewed and no addt'l complaints, except as documented Endocrine Endocrinology: Reports systems reviewed and no addt'l complaints, except as documented; Denies flushing Hematologic/Lymphatic Hematologic/Lymphatic: Reports systems reviewed and no addt'l complaints, exceptas documented Allergic/Immunologic Allergic/Immunologic: Reports systems reviewed and no addt'l complaints, except as documented Intake Vital Signs 10/29/24 13:27 01/28/25 13:09 Height 5 ft 6 in 5 ft 6 in Weight: 56.302 kg BMI 20.0 BP 158/90 H Blood Pressure Location Rt brachial Position Sitting Respiration 13 Pulse 72 Pulse Source Monitor Temp 96.8 F L Temperature Source Temporal Artery Pulse Oximetry (%) 96 Oxygen Delivery Method room air Intake Accompanied by: Is patient in pain?: No Allergies No Known Allergies Allergy (Verified 01/28/25 13:12) Medications ?Medication ?Instructions ?Recorded ?Confirmed ?Type levothyroxine 75 mcg tablet 75 mcg PO SUTUTHSA 4 01/28/25 History (Synthroid) levothyroxine 88 mcg tablet 88 mcg PO MOWEFR 02/22/24 01/28/25 History (Synthroid) memantine 14 mg capsule 14 mg PO QDAY 02/22/2401/28 History sprinkle,extended release 24hr duloxetine 20 mg capsule,delayed 20 mg PO BID 03/29/24 01/28/25 History release lisinopril 20 mg tablet 20 mg PO BID 03/29/24 History anastrozole 1 mg tablet 1 mg PO QDAY #90 tabs 01/28/25 Rx Have you fallen in the past year?: No Central Venous Access Central Venous Access: No CBC, CMP January 28, 2025 reviewed in EMR Exam Physical Exam Narrative The patient is pleasantly confused, ECOG 2 Const no apparent distress General Appearance: comfortable Coding Level of Care Code Off vis,est,level 3 Exam Problem Focused Diagnoses Infiltrating ductal carcinoma of left breast C50.912 Laterality: left Assessment and Plan Assessment and Plan (1) Invasive ductal carcinoma of breast: Status: Acute Qualifiers: Laterality: left Qualified Code(s): C50.912 - Malignant neoplasm of unspecified site of left female breast Plan 84-year-old female with clinical 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 April 04, 2024 she underwent a lumpectomy, no sentinel lymph node was obtained due to significant comorbidities to minimize operative time and recovery. Started adjuvant hormonal therapy with anastrozole April 2024 Chronic comorbid conditions dementia , hypertension, hypothyroidism, worsening osteoporosis (bone density January 2024). Recommendations: Based on NCCN guidelines: 1. Systemic adjuvant hormonal therapy with anastrozole for 5 years. 2. Adjuvant radiation therapy not advised due to advanced age and significant comorbidities and the fact that she would not be able to follow instructions andcooperate with radiotherapy and is taking adjuvant hormonal therapy. Discussed on a courtesy basis with radiotherapy colleague. 3. With established and worsening osteopenia porosis already on vitamin D calcium supplement advised bone supportive therapy with denosumab preferably forease of subcutaneous administration in comparison to an IV infusion of zoledronic acid. Impression and plan were discussed with the patient and her . Follow-up in 6 months. Laurence Mayer MD Senior Java Web Developer, [facility] Divisions of Medical Oncology & Hematology Department of Internal Medicine [place] [id number] This note was generated using a voice recognition system software. Although itwas reviewed by the author prior to finalization, it may still contain incorrectwords, spelling, and punctuation that were not noted when reviewing prior to saving. If a clinically significant typo or inaccurately typed phrase is noted, please notify the author. Clinical Quality Measures Falls Risk Screening/Assistive Devices Have you fallen in the past year?: No 01/28/25 1347 <Electronically signed by Laurence menjivar MD> Date _ Laurence Mayer MD Cosigner Signature: Date (if applicable) CC: ~ [facility] Work Phone: Reason for referral (narrative)No reason for referral information availableWMercy [facility] Work Phone: Family History No Family [...] rtinent history Unknown August 09, 2018 1:43am Relationship Condition Age at Onset Recorded Date/T moose Not Specified No pertinent family history Unknown Advance Directives No Advanced Directives Records Found Advance Directive Response Recorded Date/ Time Living Will Yes March 20 5:10am Power of Immigration Specialist Yes March 20 5:10am Advance Directive Response Recorded Date/ Time Name of Medical Power of Immigration Specialist PHILL Chi May 27, 2022 6:52pm Living Will Yes May 27 6:52pm Power of Immigration Specialist Yes May 27, 2022 6:52pm Advance Directive Response Recorded Date/ Time Living Will Yes May 27 6:52pm Power of Immigration Specialist Yes May 27, 2022 6:52pm Advance Directive Response Recorded Date/ Time Living Will Yes November 23, 2022 12 :11pm Power of Immigration Specialist Yes November 23, 2022 12:11pm Advance Directive Response Recorded Date/ Time Living Will Yes July 04 9:20am Power of Immigration Specialist Yes July 04, 2023 9:20am Name of Medical Power of Immigration Specialist July 04, 2023 9:20am Advance Directive Response Recorded Date/ Time Name of Medical Power of Immigration Specialist July 04, 2023 9:20am Living Will No July 04 6:04pm Power of Immigration Specialist No July 04, 2023 6:04pm Advance Directive Response Recorded Date/ Time Do you have a Healthcare Power of Immigration Specialist? Yes January 20, 2025 3:02pm Advance Directive Response Recorded Date/ Time Living Will No March 29 3:41pm Do you have a Healthcare Power of Immigration Specialist? No March 29, 2024 3:41pm Do you have a Healthcare Power of Immigration Specialist? Yes January 20, 2025 3:02pm Chief Complaint and Reason for Visit Chief [...] Chief Complaint WRIGHT Chief Complaint WRIGHT HEADACHE Chief Complaint Admit Date 3 MO - NO LABS October 29, 2024 1:14 pm LAC January 20, 2025 2:28 pm Reason for Visit Admit Date Invasive ductal carcinoma of breast Apri l 2024 1:14pm Chief Complaint Admit Date 3 MO - NO LABS October 29, 2024 1:14 pm LAC January 20, 2025 2:28 pm 3 MO - LABS - PROLIA January 28, 2025 12:4 3pm 3 MO - NO LABS - DENOSUMAB? (IF DENTAL F ORM BACK) January 28, 2025 12:45pm Reason for Visit Admit Date Invasive ductal carcinoma of breast Apri l 2024 1:14pm Invasive ductal carcinoma of breast January 28, 2025 12:43pm Chief Complaint Admit Date 3 MO - NO LABS October 29, 2024 1:14 pm LAC January 20, 2025 2:28 pm 3 MO - LABS - PROLIA January 28, 2025 12:4 3pm 3 MO - NO LABS - DENOSUMAB? (IF DENTAL F ORM BACK) January 28, 2025 12:45pm screening; h/o breast ca February 15, 2025 9:48am Summary Purpose Additional Source Comments Goals (unrecognized [...] DO Family Provider Active Dr. Antonella Loyola , DO Primary Care Provider Active Team Status: Inactive Member Role Status Dates Dr. Antonella Loyola DO Primary Care Provider, Referring P ban Active Dr. Bernard Ewing , DO Attending Provider Active Team Status: Inactive Member Role Status Dates Dr. Antonella Loyola DO Primary Care Provider Active Dr. Yaya Villagran MD Attending Provider Active Team Status: Inactive Member Role Status Dates Dr. Antonella Loyola DO Primary Care Provider Active Dr. Bernard Ewing DO Attending Provider, Referring P ban Active Team Status: Inactive Member Role Status [...] MD Referring Provider, Emergency Provid er Active Team Status: Active Member Role/Relationship Status Dates Dr. Antonella Loyola DO Primary Care Provider Active Team Status: Inactive Member Role/Relationship Status Dates Dr. Antonella Loyola DO Primary Care Provider Active Start: October 29, 2024 End: October 29, 2024 Dr. Antonella Loyola DO Referring Provider Active St art: October 29, 2024 End: October 29, 2024 Cecilia Campbell FINANCE BUSINESS MANAGER, FINANCE BUSINESS MANAGER-C Attending Provider Active Start: October 29, 2024 End: October 29, 2024 Team Status: Inactive Member Role/Relationship Status Dates Dr. Antonella Loyola DO Primary Care Provider Active Start: January 20, 2025 End: January 20, 2025 Dr. Hakeem Hayward MD Referring Provider Active S tart: January 20, 2025 End: January 20, 2025 Dr. Hakeem Hayward MD Emergency Provider Active S tart: January 20, 2025 End: January 20, 2025 Team Status: Inactive Member Role/Relationship Status Dates Dr. Antonella Loyola DO Primary Care Provider Active Start: January 20, 2025 End: January 20, 2025 Dr. Hakeem Hayward MD Attending Provider Active S tart: January 20, 2025 End: January 20, 2025 Dr. Hakeem Hayward MD Referring Provider Active S tart: January 20, 2025 End: January 20, 2025 Dr. Hakeem Hayward MD Emergency Provider Active S tart: January 20, 2025 End: January 20, 2025 Team Status: Inactive Member Role/Relationship Status Dates Dr. Antonella Loyola DO Primary Care Provider Active Start: January 28, 2025 End: January 28, 2025 Dr. Antonella Loyola DO Referring Provider Active St art: January 28, 2025 End: January 28, 2025 Dr. Laurence Mayer MD Attending Provider Active Start: January 28, 2025 End: January 28, 2025 Team Status: Active Member Role/Relationship Status Dates Dr. Antonella Loyola DO Primary Care Provider Active Start: January 28, 2025 Ceciliajaneen WelchShannan FINANCE BUSINESS MANAGER, FINANCE BUSINESS MANAGER-C Attending Provider Active Start: January 28, 2025 Cecilia Shannan FINANCE BUSINESS MANAGER, FINANCE BUSINESS MANAGER-C Referring Provider Active Start: January 28, 2025 Team Status: Inactive Member Role/Relationship Status Dates Dr. Antonella Loyola DO Primary Care Provider Active Start: January 22, 2025 Dr. Cherie Branham MD Attending Provider Active Start: January 22, 2025 Team Status: Inactive Member Role/Relationship Status Dates Dr. Antonella Loyola DO Primary Care Provider Active Start: January 28, 2025 End: January 28, 2025 Dr. Antonella Loyola DO Referring Provider Active St art: January 28, 2025 End: January 28, 2025 Dr. Laurence Mayer MD Attending Provider Active Start: January 28, 2025 End: January 28, 2025 Team Status: Active Member Role/Relationship Status Dates Dr. Antonella Loyola DO Primary Care Provider Active Start: January 28, 2025 Cecilia Shannan FINANCE BUSINESS MANAGER, FINANCE BUSINESS MANAGER-C Attending Provider Active Start: January 28, 2025 Cecilia Shannan FINANCE BUSINESS MANAGER, FINANCE BUSINESS MANAGER-C Referring Provider Active Start: January 28, 2025 Team Status: Inactive Member Role/Relationship Status Dates Dr. Antonella Loyola DO Primary Care Provider Active Start: February 15, 2025 End: February 15, 2025 Cecilia Shannan FINANCE BUSINESS MANAGER, FINANCE BUSINESS MANAGER-C Attending Provider Active Start: February 15, 2025 End: February 15, 2025 Cecilia Shannan FINANCE BUSINESS MANAGER, FINANCE BUSINESS MANAGER-C Referring Provider Active Start: February 15, 2025 End: February 15, 2025 INFORMATION SOURCE (unrecogn ized section and content) DATE CREATED AUTHOR 02/22/2025 [facility] FOR RECORDS PERTAINING TO PATIENTS WHO ARE [...] BE BASED ON THE PRIMARY CLINICAL RECORDS. [facility]MY[facility], [facility]. provides no warranty or guarantee of the accuracy or completeness of information in this document.
== END 2025-06-10 16:12 | disposition home or self-care (01) ==
PROVIDERS: Emergency Provider Surgery; PCP Family Medicine; Visit Provider Surgery
DX: N39.0 Urinary tract infection, site not specified (principal); F03.90 Unspecified dementia, unspecified severity, without behavioral disturbance, psychotic disturbance, mood disturbance, and anxiety; I10 Essential (primary) hypertension; E03.9 Hypothyroidism, unspecified; Z79.82 Long term (current) use of aspirin; Z79.899 Other long term (current) drug therapy
CPT/HCPCS: 81001; 99282

== ENCOUNTER 2025-07-17 12:37 | Emergency (ER) | payer MEDICARE, OTHER, SELFPAY ==
[2025-07-17 12:39] VITALS: BP 172/87; PULSE 72; RESP 16; TEMP 37.1; O2SAT 97
--- OUTSIDE RECORDS SUMMARY | 2025-07-17 13:06 | XMS RPT_ITS | CCD ---
Author Organization [facility] Care Team Providers Care Child Psychology Teacher Name Role Phone Dr. Antonella Loyola Primary Care Provider Dr. Antonella Loyola Referring Provider Dr. Bernard Ewing Attending Provider Dr. Yaya Villagran Attending Provider Dr. Antonella Loyola DO Primary Care Provider Dr. Antonella Loyola DO Referring Provider Shannan ERGONOMIST-C, Cecilia Attending Provider [phone] Hakeem Hayward MD Referring Provider Dr. Hakeem Hayward MD Emergency Provider Dr. Hakeem Hayward MD Attending Provider Dr. Laurence Mayer MD Attending Provider Shannan ERGONOMIST-C, Cecilia Referring Provider [phone] Yonas ROLON, [...] Attending Unavailable Malys, Antonella Referring Unavailable Shannan ERGONOMIST, Cecilia Attending Unavailable Malys, Antonella Primary Care Unavailable Shannan ERGONOMIST, Cecilia Attending Unavailable Malys, Antonella Referring Unavailable Malys, Antonella Primary Care Unavailable Shannan ERGONOMIST, Cecilia Referring Unavailable Shannan ERGONOMIST, Cecilia Attending Unavailable Malys, Antonella Primary Care Unavailable Malys, Antonella Primary Care Unavailable Shannan ERGONOMIST, Cecilia Referring Unavailable Shannan ERGONOMIST, Cecilia Attending Unavailable Miguel Mariee Referring Unavailable [...] mg extended release oral capsule (3 sources) K-rstjda-M-aspartate Receptor Antagonist Start: 02-22-2024 take 1 capsule by mouth once daily Memantine 14 mg capsule,uri,ER 24hr Active 14 mg PO daily February [...] By: Misty White on 02-15-2025 Study report [facility] Imaging Services [address] [place], [place] [address] SCRN MAMM (CAD)W/DESIRAE BILAT MR#: [id number] Acct: [id number] Name: ESTRADA MURO Bhanu Rep #: [id number] : 1940 F 84 From: Bryanna White MD PCP: Dr. Antonella Loyola, Status: REG CLI Study:SCRN MAMM (CAD)W/DESIRAE BILAT Date of Exa m: 02/15/25 Exam# [id number] Ordering Dr: Cecilia Graham NP ERGONOMIST-C EXAM: SCRN MAMM (CAD)W/DESIRAE BILAT DATE: 02/15/2025 [...] to the patient. Reading Location: [facility] CC: ERGONOMIST-C Cecilia Campbell; Dr. Antonella Loyola DO ~ Epic Specialist: Signed [facility] SCRN MAMM (CAD)W/DESIRAE BILATo n 02-15-2025 SCRN MAMM (CAD)W/DESIRAE BILAT [facility] Imaging Services [address] [place] [id number] SCRN MAMM (CAD)W/DESIRAE BILAT MR#: [id number] Acct: [id number] Name: ESTRADA MURO Rep #: [id number] : 1940 F 84 From: Misty White MD PCP: Dr. Antonella Loyola DO Status: REG CLI Study: SCRN MAMM (CAD)W/DESIRAE BILAT Date of Exam: 01/23 12/16 Exam# [id number] Ordering Dr: Cecilia Campbell NP ERGONOMIST -C EXAM: SCRN MAMM (CAD)W/DESIRAE BILAT DATE: [...] be mailed to the patient. Reading Location: [id number] CC: YOLA Campbell; Dr. Antonella Loyola DO Epic Specialist: Signed Normal [facility] Absolute lymphocyte countOrd ered By: Cecilia Campbell on 01-28-2025 Lymphocytes Auto (Unsp spec) [#/Vol] 1.49 10*3/uL 0.83-4.51 [facility] Absolute neutrophil countOrd ered By: Cecilia Campbell on 01-28-2025 Neutrophils (Bld) [#/Vol] 4.3 10*3/uL 2.0-7.7 [facility] Anion gap in Serum or Plasma Ordered By: Cecilia Campbell on 01-28-2025 Anion gap [Moles/Vol] 8 mmol/L 5-15 [facility] Automated lymphocyte count a s percentage of total leukocytesOrdered By: Cecilia Campbell on 01-28-2025 Lymphocytes/100 WBC Auto (Unsp spec) 23.6 % 19-41 [facility] BUN/creatinine ratioOrdered By: Cecilia Campbell on 01-28-2025 Urea nitrogen/Creatinine [Mass ratio] 20.8 mg/mg High 10-20 [facility] Basophil percentageOrdered B y: Cecilia Campbell on 01-28-2025 Basophils/100 WBC (Bld) 0.8 % 0-1 [facility] Bilirubin, totalOrdered By: Cecilia Campbell on 01-28-2025 Bilirubin [Mass/Vol] 0.30 mg/dL 0.00-1.30 [facility] CBC W/Diff, Automatedon 07-0 7-2025 Absolute Lymph 1.49 X10 3/uL Normal 0.83-4.51 [facility] Comment on above: Performed By: #### L 501.2300, L100.0100, L500.4050 #### [facility] Laboratory [address] [place], [address] Absolute Neut 4.3 X10 3/uL Normal 2.0-7.7 [facility] Comment on above: Performed By: #### L 501.2300, L100.0100, L500.4050 #### [facility] [address] [place], [address] Basophils/100 WBC (Bld) 0.8 % Normal 0-1 [facility] Comment on above: Performed By: #### L 501.2300, L100.0100, L500.4050 #### [facility] [address] [place], [address] Eosinophils/100 WBC (Bld) 0.9 % Normal 0-5 [facility] Comment on above: Performed By: #### L 501.2300, L100.0100, L500.4050 #### [facility] [address] [place], [address] Erythrocyte distribution width (RBC) [Ratio] 13.4 % Normal 11.6-14.6 [facility] Comment on above: Performed By: #### L 501.2300, L100.0100, L500.4050 #### [facility] [address] [place], [address] Hematocrit (Bld) [Volume fraction] 36.3 % Low 37-47 [facility] Comment on above: Performed By: #### L 501.2300, L100.0100, L500.4050 #### [facility] [address] [place], [address] Hemoglobin (Bld) [Mass/Vol] 11.5 g/dL Low 12.0-15.0 [facility] Comment on above: Performed By: #### L 501.2300, L100.0100, L500.4050 #### [facility] [address] [place], [address] IG% 0.200 Normal 0.0-0.9 [facility] Comment on above: Result Comment: IG% - Immature Granulocytes (promyelocytes, myelocytes and metamyelocytes) > 1% indicates that a LEFT SHIFT is Present. Performed By: #### L 501.2300, L100.0100, L500.4050 #### [facility] [address] [place], [address] Lymphocytes/100 WBC (Bld) 23.6 % Normal 19-41 [facility] Comment on above: Performed By: #### L 501.2300, L100.0100, L500.4050 #### [facility] [address] [place], [address] MCH (RBC) [Entitic mass] 31.7 pg Normal 27.0-32.0 [facility] Comment on above: Performed By: #### L 501.2300, L100.0100, L500.4050 #### [facility] [address] [place], [address] MCHC (RBC) [Mass/Vol] 31.7 g/dL Low 32-36 [facility] Comment on above: Performed By: #### L 501.2300, L100.0100, L500.4050 #### [facility] [address] [place], [address] MCV (RBC) [Entitic vol] 100.0 fL High 81-99 [facility] Comment on above: Performed By: #### L 501.2300, L100.0100, L500.4050 #### [facility] [address] [place], [address] Monocytes/100 WBC (Bld) 6.3 % Normal 0-10 [facility] Comment on above: Performed By: #### L 501.2300, L100.0100, L500.4050 #### [facility] [address] [place], [address] Neutrophils/100 WBC (Bld) 68.2 % Normal 47-70 [facility] Comment on above: Performed By: #### L 501.2300, L100.0100, L500.4050 #### [facility] [address] [place], [address] Nucleated RBC (Bld) [#/Vol] 0 10*3/uL Normal 0-5 [facility] Comment on above: Performed By: #### L 501.2300, L100.0100, L500.4050 #### [facility] [address] [place], [address] Platelet mean volume (Bld) [Entitic vol] 12.0 fL Normal 6.2-12.0 [facility] Comment on above: Performed By: #### L 501.2300, L100.0100, L500.4050 #### [facility] [address] [place], [address] Platelets (Bld) [#/Vol] 162 10*3/uL Normal 150-450 [facility] Comment on above: Performed By: #### L 501.2300, L100.0100, L500.4050 #### [facility] [address] [place], [address] RBC (Bld) [#/Vol] 3.63 10*6/uL Low 4.2-5.4 [facility] Comment on above: Performed By: #### L 501.2300, L100.0100, L500.4050 #### [facility] [address] [place], [address] RDW SD 49.8 fl High 35.1-43.9 [facility] Comment on above: Performed By: #### L 501.2300, L100.0100, L500.4050 #### [facility] [address] [place], [address] WBC (Bld) [#/Vol] 6.3 10*3/uL Normal 4.4-11.0 [facility] Comment on above: Performed By: #### L 501.2300, L100.0100, L500.4050 #### [facility] [address] [place], [address] Carbon dioxide, total [Moles /volume] in Central venous bloodOrdered By: Cecilia Campbell on 01-28-2025 CO2 [Moles/Vol] 26.3 mmol/L 21.0-32.0 [facility] Chloride assayOrdered By: Cam Campbell on 01-28-2025 Chloride [Moles/Vol] 105 mmol/L 98-108 [facility] Metabolic Prof ilon 01-28-2025 Albumin [Mass/Vol] 4.2 g/dL Normal 3.4-4.8 [facility] Comment on above: Performed By: #### L 501.2300, L100.0100, L500.4050 ####[facility] [address] [place], [address] Albumin/Globulin [Mass ratio] 1.7 {ratio} Normal 0.9-2.4 [facility] Comment on above: Performed By: #### L 501.2300, L100.0100, L500.4050 ####[facility] [address] [place], [address] ALK PHOS 55 U/L Normal 35-104 [facility] Comment on above: Performed By: #### L 501.2300, L100.0100, L500.4050 ####[facility] [address] [place], [address] ALT [Catalytic activity/Vol] 6 U/L Normal <=34 [facility] Comment on above: Performed By: #### L 501.2300, L100.0100, L500.4050 ####[facility] [address] [place], [address] AST [Catalytic activity/Vol] 20 U/L Normal <=31 [facility] Comment on above: Performed By: #### L 501.2300, L100.0100, L500.4050 ####[facility] [address] [place], [address] Bilirubin [Mass/Vol] 0.30 mg/dL Normal 0.00-1.30 [facility] Comment on above: Performed By: #### L 501.2300, L100.0100, L500.4050 ####[facility] [address] [place], [address] BUN/CRE 20.8 RATIO High 10-20 [facility] Comment on above: Performed By: #### L 501.2300, L100.0100, L500.4050 ####[facility] [address] [place], [address] Calcium [Mass/Vol] 9.2 mg/dL Normal 7.6-11.0 [facility] Comment on above: Performed By: #### L 501.2300, L100.0100, L500.4050 ####[facility] [address] [place], [address] Chloride [Moles/Vol] 105 mmol/L Normal 98-108 [facility] Comment on above: Performed By: #### L 501.2300, L100.0100, L500.4050 ####[facility] [address] [place], [address] CO2 [Moles/Vol] 26.3 mmol/L Normal 21.0-32.0 [facility] Comment on above: Performed By: #### L 501.2300, L100.0100, L500.4050 ####[facility] [address] [place], [address] Creatinine [Mass/Vol] 0.92 mg/dL Normal 0.70-1.20 [facility] Comment on above: Performed By: #### L 501.2300, L100.0100, L500.4050 ####[facility] [address] [place], [address] ECRCL 41.90 ml/min Low 50-250 [facility] Comment on above: Performed By: #### L 501.2300, L100.0100, L500.4050 ####[facility] [address] [place], [address] GAP 8 Normal 5-15 [facility] Comment on above: Performed By: #### L 501.2300, L100.0100, L500.4050 ####[facility] [address] [place], [address] GFR/1.73 sq M.predicted among non-blacks MDRD (S/P/Bld) [Vol rate/Area] 62 mL/min/{1.73_m2} Normal >60 [facility] Comment on above: Result Comment: mL/m in/1.73m2 CKD-EPI Creatinine Equation (2020) Performed By: #### L 501.2300, L100.0100, L500.4050 ####[facility] [address] [place], [address] Globulin (S) [Mass/Vol] 2.6 g/dL Normal 2.2-4.2 [facility] Comment on above: Performed By: #### L 501.2300, L100.0100, L500.4050 ####[facility] [address] [place], [address] Glucose [Mass/Vol] 98 mg/dL Normal 70-99 [facility] Comment on above: Performed By: #### L 501.2300, L100.0100, L500.4050 ####[facility] [address] [place], [address] Potassium [Moles/Vol] 4.3 mmol/L Normal 3.3-5.1 [facility] Comment on above: Performed By: #### L 501.2300, L100.0100, L500.4050 ####[facility] [address] [place], [address] Sodium [Moles/Vol] 140 mmol/L Normal 133-145 [facility] Comment on above: Performed By: #### L 501.2300, L100.0100, L500.4050 ####[facility] [address] [place], [address] T PROT 6.8 g/dL Normal 5.9-8.4 [facility] Comment on above: Performed By: #### L 501.2300, L100.0100, L500.4050 ####[facility] [address] [place], [address] Urea nitrogen [Mass/Vol] 19 mg/dL Normal 4-19 [facility] Comment on above: Performed By: #### L 501.2300, L100.0100, L500.4050 ####[facility] [address] [place], [address] Eosinophil percentageOrdered By: Cecilia Campbell on 01-28-2025 Eosinophils/100 WBC (Bld) 0.9 % 0-5 [facility] Erythrocyte distribution wid th ratioOrdered By: Cecilia Campbell on 01-28-2025 Erythrocyte distribution width (RBC) [Ratio] 13.4 % 11.6-14.6 [facility] Erythrocyte distribution wid th standard deviationOrdered By: Cecilia Campbell on 01-28-2025 Erythrocyte distribution width (RBC) [Ratio] 49.8 fl High 35.1-43.9 [facility] Glomerular filtration rate ( GFR) estimation/1.73 sq m using serum, plasma, or whole bOrdered By: Cecilia Campbell on 01-28-2025 GFR/1.73 sq M.predicted among non-blacks MDRD (S/P/Bld) [Vol rate/Area] 62 mL/min/{1.73_m2} >60 [facility] Comment on above: mL/min/1.73m2 CKD-EP I Creatinine Equation (2020) Hematocrit Auto (Bld) [Volum e fraction]Ordered By: Cecilia Campbell on 01-28-2025 Hematocrit (Bld) [Volume fraction] 36.3 % Low 37-47 [facility] Hemoglobin measurementOrdere d By: Cecilia Campbell on 01-28-2025 Hemoglobin (Bld) [Mass/Vol] 11.5 g/dL Low 12.0-15.0 [facility] Immature granulocytes/100 WB C Auto (Bld)Ordered By: Cecilia Campbell 01-28-2025 Immature granulocytes/100 WBC (Bld) 0.200 % 0.0-0.9 [facility] Comment on above: IG% - Immature Granu locytes (promyelocytes, myelocytes and metamyelocytes) > 1% indicates that a LEFT SHIFT is Present. Laboratory - Chemistry and C hemistry - challengeOrdered By: Cecilia Campbell on 01-28-2025 AST [Catalytic activity/Vol] 20 U/L <32 [facility] MCV (mean corpuscular volume ) determinationOrdered By: Cecilia Campbell 01-28-2025 MCV (RBC) [Entitic vol] 100.0 fL High 81-99 [facility] Mean corpuscular hemoglobin (MCH) determinationOrdered By: Cecilia Campbell 01-28-2025 MCH (RBC) [Entitic mass] 31.7 pg 27.0-32.0 [facility] Mean corpuscular hemoglobin concentration (MCHC) determinationOrdered By: Cecilia Campbell on 01-28-2025 MCHC (RBC) [Mass/Vol] 31.7 g/dL Low 32-36 [facility] Mean platelet volume determi nationOrdered By: Cecilia Campbell on 01-28-2025 Platelet mean volume (Bld) [Entitic vol] 12.0 fL 6.2-12.0 [facility] Monocyte percentageOrdered B y: Cecilia Campbell on 01-28-2025 Monocytes/100 WBC (Bld) 6.3 % 0-10 [facility] Neutrophil percentageOrdered By: Cecilia Shannan on 01-28-2025 Neutrophils/100 WBC (Bld) 68.2 % 47-70 [facility] Nucleated red blood cell per centageOrdered By: [facility] on 01-28-2025 Nucleated RBC/100 WBC (Bld) [Ratio] 0 % 0-5 [facility] Oncology Visit Reporton Oncology Visit Report [facility] [place] [facility] [address] [place] [address] OFFICE VISIT Date of Service: 01/28/25 1308 MR#: [id number] Acct: [id number] Name: ESTRADA MURO Rep #: [id number] : 1940 From: Laurence Mayer MD Age/Sex: 84/F Location[facility] Status: Signed HPI Subjective Date of Service [...] present Additional Findings: None Breast Marker Study: [id number] ER: >95% HI: 0% Her2: 2+ (equivocal) Ki67:5% Negative for overexpression of XPQ8mcf by FISH April 04, 2024 left breast [...] Ancillary studies: Previously performed on same tumor ([id number] / [id number]). ER: Positive, >95% HI: Negative, 0%, Her2 annie: 2+ by immunohistochemistry and not amplified (1.1) by in situ hybridization Ki67: 5% Clinical history: Mass of breast PATHOLOGIC STAGE: T1c Nx Mx Treatment summary and response: March 2024 left breast lumpectomy. April 2024 anastrozole [facility] Medical History Screening for breast cancer [...] Respiratory/Chest Respirat (more content not included)... Normal [facility] Phosphoruson 01-28-2025 Phosphate [Mass/Vol] 2.8 mg/dL Normal 2.7-4.5 [facility] Comment on above: Performed By: #### L 501.2300, L100.0100, L500.4050 ####[facility] [address] [place], [address] Platelet countOrdered By: Cma Campbell on 01-28-2025 Platelets (Bld) [#/Vol] 162 10*3/uL 150-450 [facility] Potassium measurement (mass/ volume)Ordered By: Cecilia Campbell on 01-28-2025 Potassium (Unsp spec) [Mass/Vol] 4.3 mmol/L 3.3-5.1 [facility] RBC Auto (Bld) [#/Vol]Ordere d By: Cecilia Campbell on 07-07-2025 RBC (Bld) [#/Vol] 3.63 10*6/uL Low 4.2-5.4 [facility] Serum creatinine measurement (mass/volume)Ordered By: Cecilia Campbell on 01-28-2025 Creatinine [Mass/Vol] 0.92 mg/dL 0.70-1.20 [facility] Serum globulin measurementOr dered By: Cecilia Campbell on 01-28-2025 Globulin (S) [Mass/Vol] 2.6 g/dL 2.2-4.2 [facility] Serum glucose measurement (m ass/volume)Ordered By: Cecilia Campbell on 01-28-2025 Glucose [Mass/Vol] 98 mg/dL 70-99 [facility] Serum or plasma alanine hines otransferase (ALT) measurementOrdered By: Cecilia Campbell on 01-28-2025 ALT [Catalytic activity/Vol] 6 U/L <35 [facility] Serum or plasma albumin enrrique urement (mass/volume)Ordered By: Cecilia Campbell on 01-28-2025 Albumin [Mass/Vol] 4.2 g/dL 3.4-4.8 [facility] Serum or plasma albumin/glob ulin mass ratioOrdered By: Cecilia Campbell on 01-28-2025 Albumin/Globulin [Mass ratio] 1.7 {ratio} 0.9-2.4 [facility] Serum or plasma alkaline skyler sphatase measurementOrdered By: Cecilia Campbell on 01-28-2025 ALP [Catalytic activity/Vol] 55 U/L 35-104 [facility] Serum or plasma calcium enrrique urement (mass/volume)Ordered By: Cecilia Campbell on 01-28-2025 Calcium [Mass/Vol] 9.2 mg/dL 7.6-11.0 [facility] Serum or plasma urea nitroge n measurement (mass/volume)Ordered By: Cecilia Campbell 01-28-2025 Urea nitrogen [Mass/Vol] 19 mg/dL 4-19 [facility] Sodium levelOrdered By: Cecilia Campbell on 01-28-2025 Sodium [Moles/Vol] 140 mmol/L 133-145 [facility] Total proteinOrdered By: Naima Campbell on 01-28-2025 Protein [Mass/Vol] 6.8 g/dL 5.9-8.4 [facility] White blood cell (WBC) count Ordered By: Cecilia Campbell on 01-28-2025 WBC (Bld) [#/Vol] 6.3 10*3/uL 4.4-11.0 [facility] Emergency Department Summary on 01-20-2025 Emergency Department Summary [facility] Medical Records Department [address] [place] [address] Emergency Department Summary 01/20/25 MR#: [id number] Acct: [id number] Name: ESTRADA MURO Rep #: [id number] : 1940 84 From: Antonella AGUILAR PCP: [...] ambulate. She is not on blood thinners. [facility] Medical History Screening for breast cancer Osteopenia [...] by famil (more content not included)... Normal [facility] Oncology Visit Reporton Oncology Visit Report [facility] [place] [facility] [address] [place] [address] OFFICE VISIT Date of Service: 10/29/24 1322 MR#: [id number] Acct: [id number] Name: ESTRADA MURO Bhanu Rep #: [id number] : 1940 From: Cecilia Campbell NP ERGONOMIST -C Age/Sex: 84/F Location: [facility] Status: Signed HPI Subjective Date of Service [...] present Additional Findings: None Breast Marker Study: [id number] ER: >95% HI: 0% Her2: 2+ (equivocal) Ki67:5% Negative for overexpression of IWL1qvr by FISH April 04, 2024 left breast [...] Ancillary studies: Previously performed on same tumor ([id number] / [id number]). ER: Positive, >95% HI: Negative, 0%, Her2 annie: 2+ by immunohistochemistry [...] breast, muscle ache/stiffness, urinary complaints, jaw pain. [facility] Medical History Osteopenia Invasive ductal carcinoma [...] 19.7 20.0 (more content not included)... Normal [facility] CBC W/Diff, Automatedon 01-0 8 Absolute Lymph 1.55 X10 3/uL Normal 0.83-4.51 [facility] Comment on above: Performed By: #### L 100.0100, L500.4050, L501.2300, L506.1000 ####[facility] [address] [place], [place], [id number] Absolute Neut 4.6 X10 3/uL Normal 2.0-7.7 [facility] Comment on above: Performed By: #### L 100.0100, L500.4050, L501.2300, L506.1000 ####[facility] [address] [place], [address] Basophils/100 WBC (Bld) 0.7 % Normal 0-1 [facility] Comment on above: Performed By: #### L 100.0100, L500.4050, L501.2300, L506.1000 ####[facility] [address] [place], [address] Eosinophils/100 WBC (Bld) 0.9 % Normal 0-5 [facility] Comment on above: Performed By: #### L 100.0100, L500.4050, L501.2300, L506.1000 ####[facility] [address] [place], [address] Erythrocyte distribution width (RBC) [Ratio] 13.5 % Normal 11.6-14.6 [facility] Comment on above: Performed By: #### L 100.0100, L500.4050, L501.2300, L506.1000 ####[facility] [address] [place], [address] Hematocrit (Bld) [Volume fraction] 35.1 % Low 37-47 [facility] Comment on above: Performed By: #### L 100.0100, L500.4050, L501.2300, L506.1000 ####[facility] [address] [place], [address] Hemoglobin (Bld) [Mass/Vol] 11.7 g/dL Low 12.0-15.0 [facility] Comment on above: Performed By: #### L 100.0100, L500.4050, L501.2300, L506.1000 ####[facility] [address] [place], [address] IG% 0.400 Normal 0.0-0.9 [facility] Comment on above: Result Comment: IG% - Immature Granulocytes (promyelocytes, myelocytes and metamyelocytes) > 1% indicates that a LEFT SHIFT is Present. Performed By: #### L 100.0100, L500.4050, L501.2300, L506.1000 ####[facility] [address] [place], [address] Lymphocytes/100 WBC (Bld) 23.0 % Normal 19-41 [facility] Comment on above: Performed By: #### L 100.0100, L500.4050, L501.2300, L506.1000 ####[facility] [address] [place], [address] MCH (RBC) [Entitic mass] 31.9 pg Normal 27.0-32.0 [facility] Comment on above: Performed By: #### L 100.0100, L500.4050, L501.2300, L506.1000 ####[facility] [address] [place], [address] MCHC (RBC) [Mass/Vol] 33.3 g/dL Normal 32-36 [facility] Comment on above: Performed By: #### L 100.0100, L500.4050, L501.2300, L506.1000 ####[facility] [address] [place], [address] MCV (RBC) [Entitic vol] 95.6 fL Normal 81-99 [facility] Comment on above: Performed By: #### L 100.0100, L500.4050, L501.2300, L506.1000 ####[facility] [address] [place], [address] Monocytes/100 WBC (Bld) 6.4 % Normal 0-10 [facility] Comment on above: Performed By: #### L 100.0100, L500.4050, L501.2300, L506.1000 ####[facility] [address] [place], [address] Neutrophils/100 WBC (Bld) 68.6 % Normal 47-70 [facility] Comment on above: Performed By: #### L 100.0100, L500.4050, L501.2300, L506.1000 ####[facility] [address] [place], [address] Nucleated RBC (Bld) [#/Vol] 0 10*3/uL Normal 0-5 [facility] Comment on above: Performed By: #### L 100.0100, L500.4050, L501.2300, L506.1000 ####[facility] [address] [place], [address] Platelet mean volume (Bld) [Entitic vol] 11.6 fL Normal 6.2-12.0 [facility] Comment on above: Performed By: #### L 100.0100, L500.4050, L501.2300, L506.1000 ####[facility] [address] [place], [address] Platelets (Bld) [#/Vol] 188 10*3/uL Normal 150-450 [facility] Comment on above: Performed By: #### L 100.0100, L500.4050, L501.2300, L506.1000 ####[facility] [address] [place], [address] RBC (Bld) [#/Vol] 3.67 10*6/uL Low 4.2-5.4 [facility] Comment on above: Performed By: #### L 100.0100, L500.4050, L501.2300, L506.1000 ####[facility] [address] [place], [address] RDW SD 47.7 fl High 35.1-43.9 [facility] Comment on above: Performed By: #### L 100.0100, L500.4050, L501.2300, L506.1000 ####[facility] [address] [place], [address] WBC (Bld) [#/Vol] 6.7 10*3/uL Normal 4.4-11.0 [facility] Comment on above: Performed By: #### L 100.0100, L500.4050, L501.2300, L506.1000 ####[facility] [address] [place], [address] Comprehensive Metabolic Prof ilon 08-01-2024 Albumin [Mass/Vol] 3.7 g/dL Normal 3.2-5.0 [facility] Comment on above: Performed By: #### L 100.0100, L500.4050, L501.2300, L506.1000 ####[facility] [address] [place], [address] Albumin/Globulin [Mass ratio] 1.1 {ratio} Normal 0.9-2.4 [facility] Comment on above: Performed By: #### L 100.0100, L500.4050, L501.2300, L506.1000 ####[facility] [address] [place], [address] ALK P 70 U/L Normal 45-117 [facility] Comment on above: Performed By: #### L 100.0100, L500.4050, L501.2300, L506.1000 ####[facility] [address] [place], [address] ALT [Catalytic activity/Vol] 13 U/L Normal 13-56 [facility] Comment on above: Performed By: #### L 100.0100, L500.4050, L501.2300, L506.1000 ####[facility] [address] [place], [address] AST [Catalytic activity/Vol] 16 U/L Normal 15-37 [facility] Comment on above: Performed By: #### L 100.0100, L500.4050, L501.2300, L506.1000 ####[facility] [address] [place], [address] Bilirubin [Mass/Vol] 0.30 mg/dL Normal 0.20-1.00 [facility] Comment on above: Result Comment: For patients on eltrombopag therapy, use of Dimension [place] TBIL is not recommended. Performed By: #### L 100.0100, L500.4050, L501.2300, L506.1000 ####[facility] [address] [place], [address] BUN/CRE 25.7 RATIO High 10-20 [facility] Comment on above: Performed By: #### L 100.0100, L500.4050, L501.2300, L506.1000 ####[facility] [address] [place], [address] CA,Total 9.1 mg/dL Normal 8.5-10.1 [facility] Comment on above: Performed By: #### L 100.0100, L500.4050, L501.2300, L506.1000 ####[facility] [address] [place], [address] Chloride [Moles/Vol] 103 mmol/L Normal 98-107 [facility] Comment on above: Performed By: #### L 100.0100, L500.4050, L501.2300, L506.1000 ####[facility] [address] [place], [address] CO2 [Moles/Vol] 31.0 mmol/L Normal 21.0-32.0 [facility] Comment on above: Performed By: #### L 100.0100, L500.4050, L501.2300, L506.1000 ####[facility] [address] [place], [address] Creatinine [Mass/Vol] 0.97 mg/dL Normal 0.55-1.02 [facility] Comment on above: Result Comment: The validity of the calculated GFR GFRAA in patients over 70 years has not been determined. Clinical correlation is essential. Performed By: #### L 100.0100, L500.4050, L501.2300, L506.1000 ####[facility] [address] [place], [address] EST GFR - AA 70 mL/min Normal >60 [facility] Comment on above: Result Comment: Afri can Algerian GFR Calc Performed By: #### L 100.0100, L500.4050, L501.2300, L506.1000 ####[facility] [address] [place], [address] GAP 6 Normal 5-15 [facility] Comment on above: Performed By: #### L 100.0100, L500.4050, L501.2300, L506.1000 ####[facility] [address] [place], [address] GFR/1.73 sq M.predicted among non-blacks MDRD (S/P/Bld) [Vol rate/Area] 58 mL/min/{1.73_m2} Low >60 [facility] Comment on above: Result Comment: Non- GFR Calc Performed By: #### L 100.0100, L500.4050, L501.2300, L506.1000 ####[facility] [address] [place], [address] Globulin (S) [Mass/Vol] 3.4 g/dL Normal 2.2-4.2 [facility] Comment on above: Performed By: #### L 100.0100, L500.4050, L501.2300, L506.1000 ####[facility] [address] [place], [address] Glucose [Mass/Vol] 123 mg/dL High 74-106 [facility] Comment on above: Result Comment: Fast ing Glucose result from 100 to 125 mg/dL suggests IMPAIRED HOMEOSTASIS per A.D.A. criteria. Performed By: #### L 100.0100, L500.4050, L501.2300, L506.1000 ####[facility] [address] [place], [address] Potassium [Moles/Vol] 3.7 mmol/L Normal 3.5-5.1 [facility] Comment on above: Performed By: #### L 100.0100, L500.4050, L501.2300, L506.1000 ####[facility] [address] [place], [address] Sodium [Moles/Vol] 140 mmol/L Normal 136-145 [facility] Comment on above: Performed By: #### L 100.0100, L500.4050, L501.2300, L506.1000 ####[facility] [address] [place], [address] T PROT 7.1 g/dL Normal 6.4-8.2 [facility] Comment on above: Performed By: #### L 100.0100, L500.4050, L501.2300, L506.1000 ####[facility] [address] [place], [address] Urea nitrogen [Mass/Vol] 25 mg/dL High 7-18 [facility] Comment on above: Performed By: #### L 100.0100, L500.4050, L501.2300, L506.1000 ####[facility] [address] [place], [address] Oncology Visit Reporton Oncology Visit Report [facility] [address] [place] [address] OFFICE VISIT Date of Service: 08/01/24 1358 MR#: [id number] Acct: [id number] Name: ESTRADA MURO Rep #: [id number] : 1940 From: Cecilia Campbell NP ERGONOMIST -C Age/Sex: 83/F Location: [facility] Status: Signed HPI Subjective Date of Service [...] present Additional Findings: None Breast Marker Study: [id number] ER: >95% HI: 0% Her2: 2+ (equivocal) Ki67:5% Negative for overexpression of XBP0rfl by FISH April 04, 2024 left breast [...] muscle: No skeletal muscle present Histologic Grade (Douglas grade): Glandular/tubular differentiation score: 2 Nuclear pleomorphism [...] Ancillary studies: Previously performed on same tumor ([id number] / [id number]). ER: Positive, >95% HI: Negative, 0%, Her2 annie: 2+ by immunohistochemistry [...] breast, muscle ache/stiffness, urinary complaints, jaw pain. [facility] Medical History Osteopenia Invasive ductal carcinoma [...] 19.2 19 (more content not included)... Normal [facility] Phosphoruson 08-01-2024 Phosphate [Mass/Vol] 3.4 mg/dL Normal 2.5-4.9 [facility] Comment on above: Performed By: #### L 100.0100, L500.4050, L501.2300, L506.1000 ####[facility] [address] [place], [address] Vitamin D,25 Hydroxyon 08-01 Vitamin D 25-OH 34.3 ng/mL Normal [facility] Comment on above: Result Comment: Analisa min D 25(OH) Status Range Deficiency <20 ng/mL (50nmol/L) Insufficiency 20 - 30 ng/mL (50 - 75 nmol/L) Sufficiency 30 - 100 ng/mL (75 - 250 nmol/L) Toxicity >100 ng/mL (>250 nmol/L) Performed By: #### L 100.0100, L500.4050, L501.2300, L506.1000 ####[facility] [address] [place], [address] Oncology Visit Reporton Oncology Visit Report [facility] [address] [place] [address] OFFICE VISIT Date of Service: 04/30/24 1445 MR#: [id number] Acct: [id number] Name: ESTRADA MURO Rep #: [id number] : 1940 From: Laurence Mayer MD Age/Sex: 83/F Location: [facility] Status: Signed HPI Subjective Date of Service [...] present Additional Findings: None Breast Marker Study: [id number] ER: >95% HI: 0% Her2: 2+ (equivocal) Ki67:5% Negative for overexpression of ETV6njd by FISH April 04, 2024 left breast [...] Ancillary studies: Previously performed on same tumor ([id number] / [id number]). ER: Positive, >95% HI: Negative, 0%, Her2 annie: 2+ by immunohistochemistry and not amplified (1.1) by in situ hybridization Ki67: 5% Clinical history: Mass of breast PATHOLOGIC STAGE: T1c Nx Mx Treatment summary and response: March 2024 left breast lumpectomy. [facility] Medical History Wears hearing aid Wears [...] Medications ???Medicati (more content not included)... Normal [facility] Surgery Visit Reporton 04-30 Surgery Visit Report [facility] 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 Miguel Mariee MD [facility] Surgery Visit Reporton 04-16 Surgery Visit Report [facility] [address] [place] [address]. [address] [place] [address] OFFICE VISIT Date of Service: 04/16/24 MR#: [id number] Acct: [id number] Name: ESTRADA MURO Rep #: [id number] : 1940 Provider: Dr. 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 Antonella Loyola, DO Normal [facility] Discharge Instructionon 03-25 Discharge Instruction [facility] Medical Records Department [address] [place] [address] Instructions for Home/Discharge Instructions 04/04/24 1214 MR#: [id number] Acct: [id number] Name: ESTRADA MURO Rep #: [id number] : 1940 83 From: Miguel Mariee MD PCP: Dr. Antonella Loyola, DO Status:DEP [facility] Discharge Instructions Diet Discharge Diet: No restrictions [...] Care Provider: Antonella Loyola Instructions Print Language: Setswana Discharge Orders/Prescriptions Prescriptions: Continued levothyroxine [Synthroid] 88 [...] CC: Dr. Antonella Loyola DO Signed Normal [facility] MR/POSTOP.Scout 04-04-2024 MR/[address]OP.[facility] Medical Records Department [address] [place] [address] Anesthesia Postop Eval I 04/04/24 1145 MR#: [id number] Acct: [id number] Name: ESTRADA MURO Bhanu Rep #: [id number] : 1940 83 From: Edagr Tovar MD PCP: Dr. Antonella Loyola, DO Status:REG SDC Y Race: C Location: [place] [address] Anesthesia: Postop Eval I Current Vital Signs [...] MD Cosigner Signature: Date CC: Signed Normal [facility] MR/LANUKPEL8to 04-04-2024 /[facility] Medical Records Department [address] [place] [address] Anesthesia Postop Eval II 04/04/24 1239 MR#: [id number] Acct: [id number] Name: ESTRADA MURO Rep #: [id number] : 1940 83 From: Huey Damico MD PCP: Dr. Antonella Loyola, DO Status:REG SDC Y Race: C Location: [place] [address] Anesthesia Postop Eval I Sum Postop Eval [...] Huey Guillaume Signature: Date CC: Signed Normal [facility] Operative Reporton 4 Operative Report [facility] Medical Records Department [address] [place] [address] Operative Report 04/04/24 1211 MR#: [id number] Acct: [id number] Name: ESTRADA MURO Rep #: [id number] : 1940 83 From: Miguel Mariee MD PCP: Dr. Antonella Loyola, DO Status:[facility] Location: [place] [address] Report of Operation Date of Procedure: 04/04/24 Pre-Operative Diagnosis: Left breast cancer Post-Operative Diagnosis: Same Surgery/Procedure Performed:: Left breast lumpectomy Description of Surgical Findings:: ??? Firm tissue along the deep margin but remaining cavity demonstrated no palpable irregularities ??? Specimen oriented and marked with suture short superior long lateral Surgeon: Miguel Mariee childcare center director: Diamond Macias Type of Anesthesia: MAC/Supplemental/Local [...] Used: None Complications None Procedures Integumentary 16xxx-193xx: 19024 Partial mastectomy 04/04/24 1322 Cosigner Signature (if applicable): CC: Dr. Antonella Loyola DO; Dr. Miguel Mariee MD Signed Normal [facility] Surgery Specimen Level Von 0 04-04-2024 Surgery Specimen Level V Patient Age/Sex Location Account Attending Physician ESTRADA MURO 83/F [facility] [id number] Dr. Miguel Mariee MD Specimen: [id number] Received: 04/05/24 Status: YFN [place] Num: [id number] Spec Type: BREAST Subm Dr: Dr. Miguel Mairee MD HEADER OPERATION: Breast, left lumpectomy PRE-OP [...] Location Account Attending Physician ESTRADA MURO 83/F [facility] [id number] Dr. Miguel Mariee MD Additional pathologic findings: Changes of previous biopsy, mild fibrocystic change and associated microcalcifications Ancillary studies: Previously performed on same tumor ([id number] / [id number]). ER: Positive, >95% HI: Negative, 0%, Her2 annie: 2+ by immunohistochemistry and not amplified (1.1) by in situ hybridization Ki67: 5% Clinical history: Mass of breast PATHOLOGIC STAGE: T1c Nx Mx The above summary is in compliance with College of [place] Pathology (CAP) Cancer Protocols Checklist and [place] Joint Committee on Cancer (AJCC), Staging Manual, [...] cassettes after additional fixation. AM/mr 04/05/2024 TC:0 CPT:23544 Patient Age/Sex Location Account Attending Physician ESTRADA MURO 83/F [facility] [id number] Dr. Miguel Mariee MD Signed (signature on file) Dr. Levi Rose, 04/09/24 1256 Normal [facility] Comment on above: Performed By: #### P SUV #### [facility] Laboratory [address] [place], [place], [address] Surgery Visit Reporton 03-29 Surgery Visit Report [facility] [address] [place] [address] OFFICE VISIT Date of Service: 03/29/24 MR#: [id number] Acct: [id number] Name: ESTRADA MURO Rep #: [id number] : 1940 Provider: Dr. Miguel chatterjee MD Age/Sex: 83/F Location: [facility] Status: Signed Intake Vital Signs 03/14/24 15:28 [...] stent, palpitati (more content not included)... Normal [facility] Oncology Visit Reporton 02-23 Oncology Visit Report [facility] [place] [facility] [address] [place] [address] OFFICE VISIT Date of Service: 03/14/24 1520 MR#: [id number] Acct: [id number] Name: BHASKARESTRADA Rep #: [id number] : 1940 From: Laurence Mayer MD Age/Sex: 83/F Location: [facility] Status: Signed HPI Subjective Date of Service [...] present Additional Findings: None Breast Marker Study: [id number] ER: >95% HI: 0% Her2: 2+ (equivocal) Ki67:5% Negative for overexpression of MTR0sew by FISH [facility] Medical History Osteoporosis Anxiety [...] History sprtinole,extend (more content not included)... Normal [facility] ER (initial)on 02-29-2024 ER (initial) --- Patient Age/Sex Location Account Attending Physician ESTRADA MURO 83/F [facility] [id number] Dr. Miguel Mariee MD Specimen: [id number] Received: 03/02/24 Status: YFN [facility] Num: [id number] Spec Type: IMMUNO Subm Dr: Dr. Miguel Mariee MD THIS IS A CORRECTED REPORT 03/06/24-1213 PHYSICIAN INSTITUTION [place] [address] SPECIMEN INFORMATION: Tissue Source: Left breast biopsy Clinical Info: Abnormal mammogram Specimen Number: [id number] CPT code: 19383,26361l8,40907m9 METHODOLOGY: Deparaffinized sections of prefer/formalin-fixed tissue or PAP/DQ stained slides are incubated with monoclonal/polyclonal antibodies/oligonucleot jignesh probes. Localization is made via biotin free immunoperoxidase method. Appropriate controls are performed and reacted as expected. Results on target cell population are indicated in the following table: RESULTS: ANTIBODY / CLONE RESULT P53 (DO-7) positive, wild type pattern Ki-67 (30-9) positive, 5% CK8 (86axevD17) positive CK5-6 (D5 1684) negative Calponin-1 (HB885S) negative P40 (BC28) negative E-Cad (ECH-6) positive MOC-31 (4561) negative MORPHOMETRIC ANALYSIS ER (clone 6F11) >95, strong intensity HI (clone 16/1E2) 0% Her-2Neu (clone CB11) 2+ The test for HER 2 is performed on formalin-fixed paraffin embedded tissue using the CB11 mouse monoclonal antibody (Yunait). A 3+ staining pattern is interpreted as positive and is defined as a strong membranous staining involving the entire cell membrane in over 30% of invasive tumor cells. A similar weak staining pattern (2+) involving 10% of the tumor cells is interpreted as equivocal. HER 2 follow-up testing by FISH is recommended for all equivocal results. Reference: [place] Society of Clinical Oncology and the College of [place] Pathology (J. Clin. Oncol. 23: 118-145, 2007). Fixative Used: Formalin; Duration of Fixation: 28 Hours.; Sample Adequate: Yes Patient Age/Sex Location Account Attending Physician ESTRADA MURO 83/F [facility] [id number] Dr. 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 Positive for estrogen receptors (favorable prognostic indicator). Negative for progesterone receptors (favorable prognostic indicator). Equivocal for overexpression of VTT9iae. 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 Positive for estrogen receptors (favorable prognostic indicator). Negative for progesterone receptors (favorable prognostic indicator). Negative for overexpression of FKD1tsw. / 03/06/2024 IN SITU HYBRIDIZATION (ROSINA) FOR [...] Factor Receptor 2 Testing in Breast Cancer: [place] Society of Clinical Oncology / College of [place] Pathologists Clinical Practice Guideline Update. J Clin Oncol 31:9028-1487, 2013. Patient Age/Sex Location Account Attending Physician ESTRADA MURO 83/F [facility] [id number] Dr. Miguel Mariee MD --- (more content not included)... Normal [facility] Comment on above: Performed By: #### P ER #### [facility] Laboratory [facility] [address] [place], [place], [id number] Surgery Specimen Level Genet 02-29-2024 Surgery Specimen Level IV Patient Age/Sex Location Account Attending Physician ESTRADA MURO 83/F [facility] [id number] Dr. Miguel Mariee MD Specimen: [id number] Received: 02/29/24 Status: YFN [place] Num: [id number] Spec Type: BREAST BX Subm Dr: Dr. [...] present Additional Findings: None Breast Marker Study: [id number] ER: >95% HI: 0% Her2: 2+ (equivocal) Ki67:5% The above summary is in compliance with College of [place] Pathology (CAP) Cancer Protocols Checklist and [place] Joint Committee on Cancer (AJCC), Staging Manual, 8th Ed. Case has been reviewed in consultation with Dr. Carrillo who concurs with the above diagnosis. IDC:SJ Patient Age/Sex Location Account Attending Physician ESTRADA MURO 83/F [facility] [id number] Dr. Miguel Mariee MD MICROSCOPIC DESCRIPTION Slides are reviewed. GROSS DESCRIPTION Received in fixative is one container labeled with the patient's name and designated Left breast tissue. The specimen consists of multiple elongated fragments of rosenthal-yellow fibroadipose tissue measuring in aggregate 1.5 x 0.5 x 0.1cm. The entire specimen is submitted in one cassette. JORGE/ 03/01/2024 TC:0 CPT:54031 Patient Age/Sex Location Account Attending Physician BHASKARESTRADA Wolfe Bhanu 83/F [facility] [id number] Dr. Miguel Mariee MD Signed (signature on file) Dr. Levi Rose DO 03/05/24 1212 Normal [facility] Comment on above: Performed By: #### P SUIV ####[facility] [address] [place], [address] Surgery Visit Reporton 02-28 Surgery Visit Report [facility] [address] [place] [address] OFFICE VISIT Date of Service: 02/29/24 MR#: [id number] Acct: [id number] Name: ESTRADA MURO Rep #: [id number] [...] nipple. Office (more content not included)... Normal [facility] Breast Limited Unilateralon 02-24-2024 Breast Limited Unilateral [facility] Imaging Services [address] [place] [address] Breast Limited Unilateral MR#: [id number] Acct: [id number] Name: ESTRADA MURO Rep #: [id number] : 1940 F 83 From: Yang fuchs MD PCP: Dr. Antonella Loyola, DO Status: REG CLI Study: Breast Limited Unilateral Date of Exam: Exam# [id number] Ordering Dr: [place] [id number] STUDY: ULTRASOUND BREAST - LEFT REASON FOR [...] Antonella Loyola DO; Dr. Miguel Mariee MD Epic Specialist: Signed Normal [facility] Absolute lymphocyte countOrd ered By: Al Bassett on 07-04-2023 Lymphocytes Auto (Unsp spec) [#/Vol] 0.58 10*3/uL 0.83-4.51 [facility] Basophil percentageOrdered B y: Alangelia Singletaryo on 07-04-2023 Basophils/100 WBC (Bld) 0.5 % 0-1 [facility] Chloride [Moles/Vol] 103 mmol/L 98-107 [facility] Eosinophils/100 WBC (Bld) 0.2 % 0-5 [facility] Glucose [Mass/Vol] 124 mg/dL 74-106 [facility] Comment on above: Fasting Glucose resu lt from 100 to 125 mg/dL suggests IMPAIRED HOMEOSTASIS per A.D.A. criteria. Neutrophils (Bld) [#/Vol] 7.4 10*3/uL 2.0-7.7 [facility] Neutrophils/100 WBC (Bld) 84.9 % 47-70 [facility] Potassium [Moles/Vol] 3.5 mmol/L 3.5-5.1 [facility] Sodium [Moles/Vol] 137 mmol/L 136-145 [facility] WBC (Bld) [#/Vol] 8.7 10*3/uL 4.4-11.0 [facility] Blood erythrocytes count (nu mber/volume)Ordered By: Alangelia Bassett on 07-04-2023 RBC (Bld) [#/Vol] 3.81 10*6/uL 4.2-5.4 [facility] Blood hemoglobin measurement (mass/volume)Ordered By: Alangelia Bassett on 07-04-2023 Hemoglobin (Bld) [Mass/Vol] 12.0 g/dL 12.0-15.0 [facility] Blood lymphocytes/100 leukoc ytesOrdered By: Alangelia Bassett on 07-04-2023 Lymphocytes/100 WBC (Bld) 6.7 % 19-41 [facility] Blood manual differential co mment interpretation (narrative result)Ordered By: Alangelia Bassett on 07-04-2023 Manual differential comment Jason (Bld) [Interp] SCANNED [facility] Blood monocytes/100 leukocyt esOrdered By: Al Bassett on 07-04-2023 Monocytes/100 WBC (Bld) 7.2 % 0-10 [facility] Blood platelet mean volumeOr dered By: Al Bassett on 07-04-2023 Platelet mean volume (Bld) [Entitic vol] 12.4 fL 6.2-12.0 [facility] Determination of erythrocyte mean corpuscular volume (MCV)Ordered By: Al Bassett on 07-04-2023 MCV (RBC) [Entitic vol] 98.7 fL 81-99 [facility] Erythrocyte sedimentation ra teOrdered By: Alangelia Bassett on 07-04-2023 ESR (Bld) [Velocity] 19 mm/h 0-30 [facility] Hematocrit Auto (Bld) [Volum e fraction]Ordered By: Al Bassett on 07-04-2023 Hematocrit (Bld) [Volume fraction] 37.6 % 37-47 [facility] Laboratory - Chemistry and C hemistry - challengeOrdered By: Alangelia Bassett on 07-04-2023 CO2 [Moles/Vol] 28.0 mmol/L 21.0-32.0 [facility] Urea nitrogen/Creatinine [Mass ratio] 21.5 mg/mg 10-20 [facility] Laboratory - Hematology and Cell countsOrdered By: Alangelia Bassett on 07-04-2023 Erythrocyte distribution width (RBC) [Entitic vol] 49.3 fL 35.1-43.9 [facility] Erythrocyte distribution width (RBC) [Ratio] 13.5 % 11.6-14.6 [facility] Immature granulocytes/100 WBC (Bld) 0.500 % 0.0-0.9 [facility] Comment on above: IG% - Immature Granu locytes (promyelocytes, myelocytes and metamyelocytes) > 1% indicates that a LEFT SHIFT is Present. MCH (RBC) [Entitic mass] 31.5 pg 27.0-32.0 [facility] Nucleated RBC/100 WBC (Bld) [Ratio] 0 % 0-5 [facility] MCHC Auto (RBC) [Mass/Vol]Or dered By: Al Bassett on 07-04-2023 MCHC (RBC) [Mass/Vol] 31.9 g/dL 32-36 [facility] No Panel InformationOrdered By: Al Bassett on 07-04-2023 Estimated Creatinine Clearance Calc 44.19 ml/min [facility] Estimated GFR (MDRD) Amer 79 mL/min >60 [facility] Comment on above: GFR Calc Estimated GFR (MDRD) Non-Af Amer 65 mL/min >60 [facility] Comment on above: Non- GFR Calc Platelets bldOrdered By: Al Bassett on 07-04-2023 Platelets (Bld) [#/Vol] 163 10*3/uL 150-450 [facility] Serum or plasma calcium enrrique urement (mass/volume)Ordered By: Al Bassett on 07-04-2023 Calcium [Mass/Vol] 8.8 mg/dL 8.5-10.1 [facility] Serum or plasma creatinine m easurement (mass/volume)Ordered By: Al Bassett on 07-04-2023 Creatinine [Mass/Vol] 0.88 mg/dL 0.55-1.02 [facility] Comment on above: The validity of the calculated GFR & GFRAA in patients over 70 years has not been determined. Clinical correlation is essential. Serum or plasma urea nitroge n measurement (mass/volume)Ordered By: Al Bassett on 07-04-2023 Urea nitrogen [Mass/Vol] 19 mg/dL 7-18 [facility] Thin prep Papanicolaou smear with manual screeningOrdered By: Al Bassett on 07-04-2023 Thin prep Papanicolaou smear with manual screening 6 5-15 [facility] Absolute lymphocyte countOrd ered By: Antonella Loyola on 01-19-2023 Lymphocytes Auto (Unsp spec) [#/Vol] 1.59 10*3/uL 0.83-4.51 [facility] Basophil percentageOrdered B y: Antonella Loyola on 01-19-2023 Basophils/100 WBC (Bld) 1.1 % 0-1 [facility] Bilirubin [Mass/Vol] 0.30 mg/dL 0.20-1.00 [facility] Comment on above: For patients on eltr ombopag therapy, use of Dimension [place] TBIL is not recommended. Chloride [Moles/Vol] 107 mmol/L 98-107 [facility] Cholesterol [Mass/Vol] 208 mg/dL <200 [facility] Comment on above: <200 mg/dL Desirable 200-240 mg/dL Borderline >240 mg/dL High Risk Eosinophils/100 WBC (Bld) 1.3 % 0-5 [facility] Glucose [Mass/Vol] 79 mg/dL 74-106 [facility] Neutrophils (Bld) [#/Vol] 3.4 10*3/uL 2.0-7.7 [facility] Neutrophils/100 WBC (Bld) 61.4 % 47-70 [facility] Potassium [Moles/Vol] 4.0 mmol/L 3.5-5.1 [facility] Protein [Mass/Vol] 6.8 g/dL 6.4-8.2 [facility] Sodium [Moles/Vol] 139 mmol/L 136-145 [facility] Triglyceride [Mass/Vol] 67 mg/dL <199 [facility] Comment on above: The drugs N-Acetylcy steine and Metamizole may falsely depress this assay.Serum Triglycerides Reference Interval Normal <150 mg/dL Borderline high 150 - 199 mg/dL High 200 - 499 mg/dL Very High > or = 500 mg/dL WBC (Bld) [#/Vol] 5.5 10*3/uL 4.4-11.0 [facility] Blood erythrocytes count (nu mber/volume)Ordered By: Antonella Loyola on 01-19-2023 RBC (Bld) [#/Vol] 3.68 10*6/uL 4.2-5.4 [facility] Blood hemoglobin measurement (mass/volume)Ordered By: Antonella Loyola on 01-19-2023 Hemoglobin (Bld) [Mass/Vol] 11.8 g/dL 12.0-15.0 [facility] Blood lymphocytes/100 leukoc ytesOrdered By: Antonella Loyola on 01-19-2023 Lymphocytes/100 WBC (Bld) 28.8 % 19-41 [facility] Blood monocytes/100 leukocyt esOrdered By: Antonella Loyola on 01-19-2023 Monocytes/100 WBC (Bld) 7.2 % 0-10 [facility] Blood platelet mean volumeOr dered By: Antonella Loyola on 01-19-2023 Platelet mean volume (Bld) [Entitic vol] 11.5 fL 6.2-12.0 [facility] Determination of erythrocyte mean corpuscular volume (MCV)Ordered By: Antoenlla Loyola on 01-19-2023 MCV (RBC) [Entitic vol] 100.0 fL 81-99 [facility] Hematocrit Auto (Bld) [Volum e fraction]Ordered By: Antonella Loyola on 01-19-2023 Hematocrit (Bld) [Volume fraction] 36.8 % 37-47 [facility] Laboratory - Chemistry and C hemistry - challengeOrdered By: Antonella Loyola on 01-19-2023 ALP [Catalytic activity/Vol] 58 U/L 45-117 [facility] ALT [Catalytic activity/Vol] 15 U/L 13-56 [facility] CO2 [Moles/Vol] 29.0 mmol/L 21.0-32.0 [facility] Cobalamin (Vitamin B12) [Mass/Vol] 1610 pg/mL 211-911 [facility] Free T4 [Mass/Vol] 0.89 ng/dL 0.76-1.46 [facility] Globulin (S) [Mass/Vol] 3.6 g/dL 2.2-4.2 [facility] Urea nitrogen/Creatinine [Mass ratio] 20.4 mg/mg 10-20 [facility] Laboratory - Hematology and Cell countsOrdered By: Antonella Loyola on 01-19-2023 Erythrocyte distribution width (RBC) [Entitic vol] 50.5 fL 35.1-43.9 [facility] Erythrocyte distribution width (RBC) [Ratio] 13.7 % 11.6-14.6 [facility] Immature granulocytes/100 WBC (Bld) 0.200 % 0.0-0.9 [facility] Comment on above: IG% - Immature Granu locytes (promyelocytes, myelocytes and metamyelocytes) > 1% indicates that a LEFT SHIFT is Present. MCH (RBC) [Entitic mass] 32.1 pg 27.0-32.0 [facility] Nucleated RBC/100 WBC (Bld) [Ratio] 0 % 0-5 [facility] MCHC Auto (RBC) [Mass/Vol]Or dered By: Antonella Loyola on 01-19-2023 MCHC (RBC) [Mass/Vol] 32.1 g/dL 32-36 [facility] No Panel InformationOrdered By: Antonella Loyola on 01-19-2023 Estimated GFR (MDRD) Amer 74 mL/min >60 [facility] Comment on above: GFR Calc Estimated GFR (MDRD) Non-Af Amer 61 mL/min >60 [facility] Comment on above: Non- GFR Calc Free Triiodothyronine (T3) pg/dL 1.7 pg/mL 2.18-3.98 [facility] Thyroid Stimulating Hormone (TSH) 1.87 uIU/mL 0.358-3.74 [facility] Platelets bldOrdered By: Aurelia Loyola on 01-19-2023 Platelets (Bld) [#/Vol] 240 10*3/uL 150-450 [facility] Serum or plasma albumin enrrique urement (mass/volume)Ordered By: Antonella Loyola on 01-19-2023 Albumin [Mass/Vol] 3.2 g/dL 3.2-5.0 [facility] Serum or plasma albumin/glob ulin mass ratioOrdered By: Antonella Loyola on 01-19-2023 Albumin/Globulin [Mass ratio] 0.9 {ratio} 0.9-2.4 [facility] Serum or plasma calcium enrrique urement (mass/volume)Ordered By: Antonella Loyola on 01-19-2023 Calcium [Mass/Vol] 9.0 mg/dL 8.5-10.1 [facility] Serum or plasma cholesterol in HDL measurement (mass/volume)Ordered By: Antonella Loyola on 01-19-2023 Cholesterol in HDL [Mass/Vol] 79 mg/dL >40 [facility] Comment on above: The drugs N-Acetylcy steine and Metamizole may falsely depress this assay. Reference Range HDL <40 mg/dL Low HDL Cholesterol HDL >or= 60 mg/dL High HDL Cholesterol Serum or plasma cholesterol in VLDL measurement (mass/volume)Ordered By: Antonella Loyola on 01-19-2023 Cholesterol in VLDL [Mass/Vol] 13 mg/dL 5-40 [facility] Serum or plasma creatinine m easurement (mass/volume)Ordered By: Antonella Loyola on 01-19-2023 Creatinine [Mass/Vol] 0.93 mg/dL 0.55-1.02 [facility] Comment on above: The validity of the calculated GFR & GFRAA in patients over 70 years has not been determined. Clinical correlation is essential. Serum or plasma low density lipoprotein (LDL) cholesterol measurement (mass/volume)Ordered By: Antonella Loyola on 01-19-2023 Cholesterol in LDL [Mass/Vol] 116 mg/dL 0-130 [facility] Serum or plasma urea nitroge n measurement (mass/volume)Ordered By: Antonella Loyola on 01-19-2023 Urea nitrogen [Mass/Vol] 19 mg/dL 7-18 [facility] Thin prep Papanicolaou smear with manual screeningOrdered By: Antonella Loyola on 01-19-2023 Thin prep Papanicolaou smear with manual screening 18 U/L 15-37 [facility] Thin prep Papanicolaou smear with manual screening 3 5-15 [facility] Absolute lymphocyte counton 05-27-2022 Lymphocytes Auto (Unsp spec) [#/Vol] 0.34 10*3/uL 0.83-4.51 [facility] Work Phone: Basophil percentageon 2021 Basophil percentage 0 SEEN /hpf 0-5 [facility] Work Phone: Basophils/100 WBC (Bld) 0.3 % 0-1 [facility] Work Phone: Chloride [Moles/Vol] 102 mmol/L 98-107 [facility] Work Phone: Eosinophils/100 WBC (Bld) 2.0 % 0-5 [facility] Work Phone: Glucose [Mass/Vol] 108 mg/dL 74-106 [facility] Work Phone: Comment on above: Fasting Glucose resu lt from 100 to 125 mg/dL suggests IMPAIRED HOMEOSTASIS per A.D.A. criteria. Neutrophils (Bld) [#/Vol] 4.9 10*3/uL 2.0-7.7 [facility] Work Phone: Neutrophils/100 WBC (Bld) 81.2 % 47-70 [facility] Work Phone: Potassium [Moles/Vol] 3.5 mmol/L 3.5-5.1 [facility] Work Phone: Sodium [Moles/Vol] 138 mmol/L 136-145 [facility] Work Phone: WBC (Bld) [#/Vol] 6.0 10*3/uL 4.4-11.0 [facility] Work Phone: Bilirubin Test strip Ql (U)o n 05-27-2022 Bilirubin Ql (U) Negative Negative [facility] Work Phone: Blood erythrocytes count (nu mber/volume)on 05-27-2022 RBC (Bld) [#/Vol] 3.59 10*6/uL 4.2-5.4 [facility]: Blood hemoglobin measurement (mass/volume)on 05-27-2022 Hemoglobin (Bld) [Mass/Vol] 11.5 g/dL 12.0-15.0 [facility] Work Phone: Blood lymphocytes/100 leukoc yteson 05-27-2022 Lymphocytes/100 WBC (Bld) 5.6 % 19-41 [facility] Work Phone: Blood manual differential co mment interpretation (narrative result)on 05-27-2022 Manual differential comment Jason (Bld) [Interp] SCANNED [facility] Work Phone: Comment on above: LYMPHOPENIA NOTED Blood monocytes/100 leukocyt eson 05-27-2022 Monocytes/100 WBC (Bld) 10.6 % 0-10 [facility] Work Phone: Blood platelet mean volumeon 05-27-2022 Platelet mean volume (Bld) [Entitic vol] 11.1 fL 6.2-12.0 [facility] Work Phone: [phone] Determination of erythrocyte mean corpuscular volume (MCV)on 05-27-2022 MCV (RBC) [Entitic vol] 95.8 fL 81-99 [facility] Work Phone: [phone] Hematocrit Auto (Bld) [Volum e fraction]on 05-27-2022 Hematocrit (Bld) [Volume fraction] 34.4 % 37-47 [facility] Work Phone: [phone] Ketones Test strip Ql (U)on 05-27-2022 Ketones Ql (U) 5 mg/dl Negative [facility] Work Phone: [phone] Laboratory - Chemistry and C hemistry - challengeon 05-27-2022 CO2 [Moles/Vol] 29.0 mmol/L 21.0-32.0 [facility] Work Phone: [phone] Urea nitrogen/Creatinine [Mass ratio] 18.5 mg/mg 10-20 [facility] Work Phone: [phone] Laboratory - Hematology and Cell countson 05-27-2022 Erythrocyte distribution width (RBC) [Entitic vol] 46.7 fL 35.1-43.9 [facility] Work Phone: [phone] Erythrocyte distribution width (RBC) [Ratio] 13.2 % 11.6-14.6 [facility] Work Phone: [phone] Immature granulocytes/100 WBC (Bld) 0.300 % 0.0-0.9 [facility] Work Phone: [phone] Comment on above: IG% - Immature Granu locytes (promyelocytes, myelocytes and metamyelocytes) > 1% indicates that a LEFT SHIFT is Present. MCH (RBC) [Entitic mass] 32.0 pg 27.0-32.0 [facility] Work Phone: [phone] Nucleated RBC/100 WBC (Bld) [Ratio] 0 % 0-5 [facility] Work Phone: [phone] MCHC Auto (RBC) [Mass/Vol]on 05-27-2022 MCHC (RBC) [Mass/Vol] 33.4 g/dL 32-36 [facility] Work Phone: Mucus LM Ql (Urine sed)on Mucus Ql (Urine sed) 0 SEEN /hpf [facility] Work Phone: Nitrite Test strip Ql (U)on 05-27-2022 Nitrite Ql (U) Negative Negative [facility] Work Phone: No Panel Informationon 05-27 Estimated Creatinine Clearance Calc 48.22 ml/min [facility] Work Phone: Estimated GFR (MDRD) Amer 76 mL/min >60 [facility] Work Phone: Comment on above: GFR Calc Estimated GFR (MDRD) Non-Af Amer 63 mL/min >60 [facility] Work Phone: Comment on above: Non- GFR Calc Platelets bldon 05-27-2022 Platelets (Bld) [#/Vol] 205 10*3/uL 150-450 [facility] Work Phone: Protein Test strip Ql (U)on 05-27-2022 Protein Ql (U) Negative Negative [facility] Work Phone: Serum or plasma calcium enrrique urement (mass/volume)on 05-27-2022 Calcium [Mass/Vol] 9.1 mg/dL 8.5-10.1 [facility] Work Phone: Serum or plasma creatinine m easurement (mass/volume)on 05-27-2022 Creatinine [Mass/Vol] 0.92 mg/dL 0.55-1.02 [facility] Work Phone: Comment on above: The validity of the calculated GFR & GFRAA in patients over 70 years has not been determined. Clinical correlation is essential. Serum or plasma urea nitroge n measurement (mass/volume)on 05-27-2022 Urea nitrogen [Mass/Vol] 17 mg/dL 7-18 [facility] Work Phone: Squamous epithelial cells de tection in urine sediment by light microscopyon 05-27-2022 Epithelial cells.squamous LM Ql (Urine sed) 0 SEEN /hpf 5-10 [facility] Work Phone: Thin prep Papanicolaou smear with manual screeningon 05-27-2022 Thin prep Papanicolaou smear with manual screening 7 5-15 [facility] Work Phone: Urine blood detectionon RBC Ql (U) Negative Negative [facility] Work Phone: RBC Ql (U) 0 SEEN /hpf 0-5 [facility] Work Phone: Urine clarityon 05-27-2022 Clarity (U) Clear Clear [facility] Work Phone: Urine color determinationon 05-27-2022 Color (U) Yellow Yellow [facility] Work Phone: Urine glucose detectionon Glucose Ql (U) Normal mg/dl Normal [facility] Work Phone: Urine leukocyte esterase det ection by dipstickon 05-27-2022 Leukocyte esterase Test strip Ql (U) Negative Negative [facility] Work Phone: Urine pHon 05-27-2022 pH (U) 7.0 [pH] 5.0 - 8.0 [facility] Work Phone: Urine sediment bacteria coun t by microscopy (number/high power field)on 05-27-2022 Bacteria LM.HPF (Urine sed) [#/Area] 0 /[HPF] None Seen [facility] Work Phone: Urine specific gravity measu rementon 05-27-2022 Specific gravity (U) [Rel density] 1.010 1.002-1.030 [facility] Work Phone: Urobilinogen Auto test strip Ql (U)on 05-27-2022 Urobilinogen Ql (U) Normal mg/dl Normal [facility] Work Phone: Absolute lymphocyte counton 01-01-2022 Lymphocytes Auto (Unsp spec) [#/Vol] 1.64 10*3/uL 0.83-4.51 [facility] Work Phone: Basophil percentageon 2021 Basophil percentage 0-5 SEEN /hpf 0-5 [facility] Work Phone: Basophils/100 WBC (Bld) 0.7 % 0-1 [facility] Work Phone: Bilirubin [Mass/Vol] 0.30 mg/dL 0.20-1.00 [facility] Work Phone: Comment on above: For patients on eltr ombopag therapy, use of Dimension [place] TBIL is not recommended. Chloride [Moles/Vol] 107 mmol/L 98-107 [facility] Work Phone: Eosinophils/100 WBC (Bld) 1.8 % 0-5 [facility] Work Phone: Glucose [Mass/Vol] 81 mg/dL 74-106 [facility] Work Phone: Neutrophils (Bld) [#/Vol] 3.6 10*3/uL 2.0-7.7 [facility] Work Phone: Neutrophils/100 WBC (Bld) 60.7 % 47-70 [facility] Work Phone: Potassium [Moles/Vol] 4.1 mmol/L 3.5-5.1 [facility] Work Phone: Protein [Mass/Vol] 6.7 g/dL 6.4-8.2 [facility] Work Phone: Sodium [Moles/Vol] 140 mmol/L 136-145 [facility] Work Phone: WBC (Bld) [#/Vol] 6.0 10*3/uL 4.4-11.0 [facility] Work Phone: Bilirubin Test strip Ql (U)o n 01-01-2022 Bilirubin Ql (U) Negative Negative [facility] Work Phone: Blood erythrocytes count (nu mber/volume)on 01-01-2022 RBC (Bld) [#/Vol] 3.57 10*6/uL 4.2-5.4 [facility] Work Phone: Blood hemoglobin measurement (mass/volume)on 01-01-2022 Hemoglobin (Bld) [Mass/Vol] 11.2 g/dL 12.0-15.0 [facility] Work Phone: Blood lymphocytes/100 leukoc yteson 01-01-2022 Lymphocytes/100 WBC (Bld) 27.5 % 19-41 [facility] Work Phone: Blood monocytes/100 leukocyt eson 01-01-2022 Monocytes/100 WBC (Bld) 9.0 % 0-10 [facility] Work Phone: Blood platelet mean volumeon 01-01-2022 Platelet mean volume (Bld) [Entitic vol] 12.7 fL 6.2-12.0 [facility] Work Phone: Determination of erythrocyte mean corpuscular volume (MCV)on 01-01-2022 MCV (RBC) [Entitic vol] 98.0 fL 81-99 [facility] Work Phone: Erythrocyte sedimentation ra trent 01-01-2022 ESR (Bld) [Velocity] 16 mm/h 0-30 [facility] Work Phone: [phone] Hematocrit Auto (Bld) [Volum e fraction]on 01-01-2022 Hematocrit (Bld) [Volume fraction] 35.0 % 37-47 [facility] Work Phone: Ketones Test strip Ql (U)on 01-01-2022 Ketones Ql (U) Negative Negative [facility] Work Phone: Laboratory - Chemistry and C hemistry - challengeon 01-01-2022 ALP [Catalytic activity/Vol] 56 U/L 45-117 [facility] Work Phone: ALT [Catalytic activity/Vol] 20 U/L 13-56 [facility] Work Phone: CO2 [Moles/Vol] 29.0 mmol/L 21.0-32.0 [facility] Work Phone: Free T4 [Mass/Vol] 1.25 ng/dL 0.76-1.46 [facility] Work Phone: [phone] Globulin (S) [Mass/Vol] 3.3 g/dL 2.2-4.2 [facility] Work Phone: [phone] Urea nitrogen/Creatinine [Mass ratio] 25.0 mg/mg 10-20 [facility] Work Phone: [phone] Laboratory - Hematology and Cell countson 01-01-2022 Erythrocyte distribution width (RBC) [Entitic vol] 47.1 fL 35.1-43.9 [facility] Work Phone: [phone] Erythrocyte distribution width (RBC) [Ratio] 13.1 % 11.6-14.6 [facility] Work Phone: [phone] Immature granulocytes/100 WBC (Bld) 0.300 % 0.0-0.9 [facility] Work Phone: [phone] Comment on above: IG% - Immature Granu locytes (promyelocytes, myelocytes and metamyelocytes) > 1% indicates that a LEFT SHIFT is Present. MCH (RBC) [Entitic mass] 31.4 pg 27.0-32.0 [facility] Work Phone: [phone] Nucleated RBC/100 WBC (Bld) [Ratio] 0 % 0-5 [facility] Work Phone: [phone] MCHC Auto (RBC) [Mass/Vol]on 01-01-2022 MCHC (RBC) [Mass/Vol] 32.0 g/dL 32-36 [facility] Work Phone: [phone] Mucus LM Ql (Urine sed)on Mucus Ql (Urine sed) 0 SEEN /hpf [facility] Work Phone: [phone] Nitrite Test strip Ql (U)on 01-01-2022 Nitrite Ql (U) Negative Negative [facility] Work Phone: [phone] No Panel Informationon 01-01 Estimated GFR (MDRD) Amer 80 mL/min >60 [facility] Work Phone: [phone] Comment on above: GFR Calc Estimated GFR (MDRD) Non-Af Amer 66 mL/min >60 [facility] Work Phone: [phone] Comment on above: Non- GFR Calc Free Triiodothyronine (T3) pg/dL 2.3 pg/mL 2.18-3.98 [facility] Work Phone: [phone] Thyroid Stimulating Hormone (TSH) 0.22 uIU/mL 0.358-3.74 [facility] Work Phone: [phone] Platelets bldon 01-01-2022 Platelets (Bld) [#/Vol] 184 10*3/uL 150-450 [facility] Work Phone: [phone] Protein Test strip Ql (U)on 01-01-2022 Protein Ql (U) Negative Negative [facility] Work Phone: [phone] Serum or plasma C reactive p rotein measurement (mass/volume)on 01-01-2022 CRP [Mass/Vol] mg/L 0.0-3.0 [facility] Work Phone: Comment on above: C-Reactive Protein ( CRP) provides useful information for thediagnosis, therapy and monitoring of inflammatory processesand associated diseases. For the evaluation of Relative Riskfor Cardiovascular Disease, a High Sensitivity CRP (HSCRP)should be ordered. Serum or plasma albumin enrrique urement (mass/volume)on 01-01-2022 Albumin [Mass/Vol] 3.4 g/dL 3.2-5.0 [place] [facility] [facility] Work Phone: [phone] Serum or plasma albumin/glob ulin mass ratioon 01-01-2022 Albumin/Globulin [Mass ratio] 1.0 {ratio} 0.9-2.4 [facility] Work Phone: [phone] Serum or plasma calcium enrrique urement (mass/volume)on 01-01-2022 Calcium [Mass/Vol] 8.8 mg/dL 8.5-10.1 [facility] Work Phone: [phone] Serum or plasma creatinine m easurement (mass/volume)on 01-01-2022 Creatinine [Mass/Vol] 0.88 mg/dL 0.55-1.02 [facility] Work Phone: Comment on above: The validity of the calculated GFR & GFRAA in patients over 70 years has not been determined. Clinical correlation is essential. Serum or plasma urea nitroge n measurement (mass/volume)on 01-01-2022 Urea nitrogen [Mass/Vol] 22 mg/dL 7-18 [facility] Work Phone: Serum or plasma uric acid me asurement (mass/volume)on 01-01-2022 Urate [Mass/Vol] 4.7 mg/dL 2.6-6.0 [facility] Work Phone: Comment on above: The drugs N-Acetylcy steine and Metamizole may falsely depress this assay. Squamous epithelial cells de tection in urine sediment by light microscopyon 01-01-2022 Epithelial cells.squamous LM Ql (Urine sed) 0-5 SEEN /hpf 5-10 [facility] Work Phone: Thin prep Papanicolaou smear with manual screeningon 01-01-2022 Thin prep Papanicolaou smear with manual screening 18 U/L 15-37 [facility] Work Phone: Thin prep Papanicolaou smear with manual screening 4 5-15 [facility] Work Phone: Urine blood detectionon 12-23 RBC Ql (U) Negative Negative [facility] Work Phone: RBC Ql (U) 0 SEEN /hpf 0-5 [facility] Work Phone: Urine clarityon 01-01-2022 Clarity (U) Sl. Cloudy Clear [facility] Work Phone: Urine color determinationon 01-01-2022 Color (U) Yellow Yellow [facility] Work Phone: Urine glucose detectionon Glucose Ql (U) Normal mg/dl Normal [facility] Work Phone: Urine leukocyte esterase det ection by dipstickon 01-01-2022 Leukocyte esterase Test strip Ql (U) 25 /ul Negative [facility] Work Phone: Urine pHon 01-01-2022 pH (U) 6.5 [pH] 5.0 - 8.0 [facility] Work Phone: Urine sediment bacteria coun t by microscopy (number/high power field)on 01-01-2022 Bacteria LM.HPF (Urine sed) [#/Area] 1 /[HPF] None Seen [facility] Work Phone: Urine specific gravity measu rementon 01-01-2022 Specific gravity (U) [Rel density] 1.015 1.002-1.030 [facility] Work Phone: Urobilinogen Auto test strip Ql (U)on 01-01-2022 Urobilinogen Ql (U) Normal mg/dl Normal [facility] Work Phone: Culture, urine Bacteria identified Cx Nom (U) Corynebacterium jeikeium [facility] Work Phone: Bacteria identified Cx Nom (U) Corynebacterium urealyticum [facility] Work Phone: Bacteria identified Cx Nom (U) Mixed Culture [facility] Work Phone: Bacteria identified Cx Nom (U) Positive [facility] Work Phone: No Panel Information SARS-CoV-2 & FLU Antigen (Rapid) [facility] Work Phone: Vital Signs Date Time Vital Sign Value Performing Clinician Faci lity 01-28-2025 13:58-0400 Body height 167.[address] Antonella Loyola DO Work Phone: [facility] 01-28-2025 13:09-0400 Body height 167.[address] Antonella Loyola DO Work Phone: [facility] 01-28-2025 13:09-0400 Body mass index (BMI) [Ratio] 20 kg/m2 Dr. Antonella Loyola DO Work Phone: [facility] 01-28-2025 13:09-0400 Body temperature 96.8 [degF] Dr. Antonella Loyola DO Work Phone: [facility] 01-28-2025 13:09-0400 Body weight 56.[address] Antonella Loyola DO Work Phone: [facility] 01-28-2025 13:09-0400 Diastolic blood pressure 90 mm[Hg] Dr. Antonella Loyola DO Work Phone: [facility] 01-28-2025 13:09-0400 Heart rate 72 /min Dr. Antonella Loyola DO Work Phone: [facility] 01-28-2025 13:09-0400 Respiratory rate 13 /min Dr. Antonella Loyola DO Work Phone: [facility] 01-28-2025 13:09-0400 SaO2% (BldA) [Mass fraction] 96 % Dr. Antonella Loyola DO Work Phone: [facility] 01-28-2025 13:09-0400 Systolic blood pressure 158 mm[Hg] Dr. Antonella Loyola DO Work Phone: [facility] 01-20-2025 14:28-0400 Body height 167.[address] Antonella Loyola DO Work Phone: [facility] 01-20-2025 14:28-0400 Body mass index (BMI) [Ratio] 21.7 kg/m2 Dr. Antonella Loyola DO Work Phone: [facility] 01-20-2025 14:28-0400 Body temperature 98 [degF] Dr. Antonella Loyola DO Work Phone: [facility] 01-20-2025 14:28-0400 Body weight 61.[address] Antonella Loyola DO Work Phone: [facility] 01-20-2025 14:28-0400 Diastolic blood pressure 77 mm[Hg] Dr. Antonella Loyola DO Work Phone: [facility] 01-20-2025 14:28-0400 Heart rate 83 /min Dr. Antonella Loyola DO Work Phone: [facility] 01-20-2025 14:28-0400 Respiratory rate 16 /min Dr. Antonella Loyola DO Work Phone: [facility] 01-20-2025 14:28-0400 SaO2% (BldA) [Mass fraction] 98 % Dr. Antonella Loyola DO Work Phone: [facility] 01-20-2025 14:28-0400 Systolic blood pressure 134 mm[Hg] Dr. Antonella oLyola DO Work Phone: [facility] 10-29-2024 13:27-0400 Body mass index (BMI) [Ratio] 20 kg/m2 Dr. Antonella Loyola DO Work Phone: [facility] 10-29-2024 13:27-0400 Body temperature 98 [degF] Dr. Antonella Loyola DO Work Phone: [facility] 10-29-2024 13:27-0400 Body weight 56.[address] Antonella Loyola DO Work Phone: [facility] 10-29-2024 13:27-0400 Diastolic blood pressure 89 mm[Hg] Dr. Antonella Loyola DO Work Phone: [facility] 10-29-2024 13:27-0400 Heart rate 73 /min Dr. Antonella Loyola DO Work Phone: [facility] 10-29-2024 13:27-0400 Respiratory rate 16 /min Dr. Antonella Loyola DO Work Phone: [facility] 10-29-2024 13:27-0400 SaO2% (BldA) [Mass fraction] 93 % Dr. Antonella Loyola DO Work Phone: [facility] 10-29-2024 13:27-0400 Systolic blood pressure 156 mm[Hg] Dr. Antonella Loyola DO Work Phone: [facility] 08-01-2024 14:45-0500 Body mass index (BMI) [Ratio] 19.7 kg/m2 Dr. Antonella Loyola DO Work Phone: [facility] 07-04-2023 17:35-0500 Body height 177.8 cm [facility] 07-04-2023 17:35-0500 Body mass index (BMI) [Ratio] 18.3 kg/m2 [facility] 07-04-2023 17:35-0500 Body temperature 97.5 [degF] [facility] 07-04-2023 17:35-0500 Body weight 58.05 kg [facility] 07-04-2023 17:35-0500 Diastolic blood pressure 91 mm[Hg] [facility] 07-04-2023 17:35-0500 Heart rate 89 /min [facility] 07-04-2023 17:35-0500 Respiratory rate 16 /min [facility] 07-04-2023 17:35-0500 SaO2% (BldA) [Mass fraction] 96 % [facility] 07-04-2023 17:35-0500 Systolic blood pressure 170 mm[Hg] [facility] 07-04-2023 11:13-0500 Diastolic blood pressure 89 mm[Hg] [facility] 07-04-2023 11:13-0500 Heart rate 74 /min [facility] 07-04-2023 11:13-0500 Respiratory rate 16 /min [facility] 07-04-2023 11:13-0500 SaO2% (BldA) [Mass fraction] 97 % [facility] 07-04-2023 11:13-0500 Systolic blood pressure 161 mm[Hg] [facility] 07-04-2023 09:20-0500 Body mass index (BMI) [Ratio] 18.9 kg/m2 [facility] 07-04-2023 09:20-0500 Body weight 54.9 kg [facility] 07-04-2023 09:12-0500 Body height 170.18 cm [facility] 07-04-2023 09:12-0500 Body temperature 97.5 [degF] [facility] 11-23-2022 12:11-0400 Body height 170.[address] Antonella Loyola Work Phone: [facility] 11-03-2022 10:56-0400 Body height 170.[address] Antonella Loyola Work Phone: [facility] 11-03-2022 10:56-0400 Body mass index (BMI) [Ratio] 21 kg/m2 Dr. Antonella Loyola Work Phone: [facility] 11-03-2022 10:56-0400 Body weight 60.[address] Antonella Loyola Work Phone: [facility] 05-27-2022 22:19-0400 Diastolic blood pressure 72 mm[Hg] [facility] Work Phone: 05-27-2022 22:19-0400 Heart rate 76 /min [facility] Work Phone: 05-27-2022 22:19-0400 Respiratory rate 16 /min [facility] Work Phone: 05-27-2022 22:19-0400 SaO2% (BldA) [Mass fraction] 96 % [facility] Work Phone: 05-27-2022 22:19-0400 Systolic blood pressure 145 mm[Hg] [facility] Work Phone: 05-27-2022 18:59-0400 Body height 170.18 cm [facility] Work Phone: 05-27-2022 18:59-0400 Body mass index (BMI) [Ratio] 21.8 kg/m2 [facility] Work Phone: 05-27-2022 18:59-0400 Body weight 63.2 kg [facility] Work Phone: 05-27-2022 18:03-0400 Body temperature 97.8 [degF] [facility] Work Phone: Encounters Encounter Date Encounter Type Care Provider Facility Start: 02-15-2025 End: 02-15-[address] Antonella Loyola DO Work Phone: -[facility]patient [facility] Start: 02-15-2025 End: 02-15-2025 Patient encounter procedure Cecilia Campbell ERGONOMIST-C -[facility]patient [facility] Work Phone: Start: 02-15-2025 End: 02-15-2025 ambulatory Antonella Loyola Facility:[facility] Start: 01-28-2025 Registered Recurring Cecilia Campbell ERGONOMIST-C -[facility] Start: 01-28-2025 End: 01-28-[address] Laurence Mayer MD -[facility] Work Phone: Start: 01-28-2025 End: 01-28-[address] Antonella Loyola DO Work Phone: -[facility] Start: 01-22-2025 Non-patient / Non-visit Dr. Cherie pineda MD -[facility] Work Phone: Start: 01-20-2025 End: 01-20-2025 Emergency department patient visit Dr. Antonella Loyola DO Work Phone: -Emergency Department Work Phone: Start: 10-29-2024 End: 10-29-2024 Patient encounter procedure Cecilia Campbell ERGONOMIST-C -[facility] Work Phone: Start: 10-29-2024 End: 10-29-2024 ambulatory Cecliia Campbell ERGONOMIST Facility:[facility] Start: 08-01-2024 End: 08-01-2024 ambulatory Antonella Loyola Facility:[facility] Start: 04-30-2024 End: 04-30-2024 ambulatory Antonella Loyola Facility:[facility] Start: 04-16-2024 End: 04-16-2024 ambulatory Antonella Loyola Facility:[facility] Start: 04-04-2024 ambulatory Miguel Mariee Facility: [facility] Start: 04-04-2024 End: 04-04-2024 ambulatory Miguel Mariee Facility:[facility] Start: 03-29-2024 End: 03-29-2024 ambulatory Antonella Loyola Facility:[facility] Start: 03-14-2024 End: 03-14-2024 ambulatory Antonella Loyola Facility:[facility] Start: 02-29-2024 End: 02-29-2024 ambulatory Antonella Loyola Facility:[facility] Start: 02-29-2024 End: 02-29-2024 ambulatory Miguel Mariee Facility:[facility] Start: 02-24-2024 End: 02-24-2024 [facility] Start: 07-04-2023 End: 07-04-2023 Emergency department patient visit [facility]-Emergency Department Work Phone: Start: 07-04-2023 End: 07-04-2023 Emergency department patient visit [facility]-Emergency Department Work Phone: Start: 01-19-2023 End: 01-19-[address] Antonella Loyola Work Phone: [facility] Work Phone: Start: 01-19-2023 End: 01-19-[address] Antonella Loyola Work Phone: [facility] Work Phone: Start: 11-24-2022 End: 11-24-[address] Antonella Loyola Work Phone: [facility] Work Phone: Start: 11-13-2022 End: 11-13-[address] Antonella Loyola Work Phone: [facility] Work Phone: Start: 11-13-2022 End: 11-13-[address] Antonella Loyola Work Phone: [facility] Start: 11-03-2022 End: 11-03-[address] Antonella Loyola Work Phone: [facility] Start: 05-27-2022 End: 05-27-2022 Emergency department patient visit [facility]-Emergency Department Start: 04-22-2022 End: 04-22-2022 ambulatory [facility] Work Phone: Start: 04-22-2022 End: 04-22-2022 Patient encounter procedure [facility]-Laboratory, Specimen Start: 01-28-2022 End: 01-28-2022 Patient encounter procedure [facility]-Cardiovascular Services Start: 01-21-2022 End: 01-21-2022 Patient encounter procedure [facility]-Laboratory, Specimen Start: 01-01-2022 End: 01-01-2022 Patient encounter procedure [facility]-Laboratory, [place] Procedures Date Procedure Procedure Detail Performing Clinician [...] 02-15-2025 MG Breast - bilatera l Screening [facility] Start: 01-28-2025 [facility] Start: 01-20-2025 [facility] Start: 01-20-2025 Simple repair scalp/neck/ax/genit/trunk 2.5cm/< RPR S/N/AX/GEN/TRNK 2.5CM/< [facility] Start: 07-04-2023 [facility] Start: 07-04-2023 [facility] Start: 11-24-2022 Patient referral [facility] Work Phone: Start: 01-01-2022 Bacteria identified in Urine by Culture Urine Culture [facility] Work Phone: CBC W Auto Different ial panel - Blood [facility] Comprehensive metabo lic 2000 panel - Serum or Plasma [facility] Patient Education [facility] Work Phone: Patient referral [facility] Work Phone: Immunizations Immunization Date Immunization Notes Care Provider Fa cility 01-20-2025 tetanus toxoid, redu jess diphtheria toxoid, and acellular pertussis vaccine, adsorbed Dr. Antonella Loyola DO Work Phone: [facility] 05-03-2018 Influenza virus vaccine [facility] 08-02-2013 Influenza virus vaccine [facility] Payers Date Payer Category Payer Self-pay [id number] 2015 Private Health Insurance [id number] 2007 Medicare [id number] Unknown [id number] 2.16.8 [id number] Unknown [id number] 2.16.8 [id number] Unknown [id number] 2.16.8 [id number] Unknown [id number] 2.16.8 [id number] Unknown [id number] 2.16.8 [id number] Unknown [id number] 2.16.8 [id number] Unknown [id number] 2.16.8 [id number] Unknown [id number] 2.16.8 [id number] Unknown [id number] 2.16.8 [id number] Unknown [id number] 2.16.8 [id number] Unknown [id number] 2.16.8 [id number] Unknown [id number] 2.16.8 [id number] Unknown [id number] 2.16.8 [id number] Unknown [id number] 2.16.8 [id number] Unknown [id number] 2.16.8 [id number] Unknown [id number] 2.16.8 [id number] Social History Date Type Detail Facility Start: 03-20-2021 End: 07-04-2023 Tobacco smoking status NDIS Unknown if ever smoked [facility] Start: 08-09-2018 Rare [facility] Start: 08-09-2018 None [facility] Start: 09-10-2020 Spouse/ Signif icant Other [facility] Start: 08-10-2018 Non-smoker [facility] Start: 1940 Sex Assigned At Female [facility] Start: 01-20-2025 Tobacco smoking status NHIS Never smoked tobacco (finding) [facility] Medical Equipment Procedure Code Equipment Code Equipment Origin al Text Equipment Identifier Dates Lumpectomy, breast, with needle localization SUTURE,LIGA CLIP SM LT-100 FDA Start: 04-04-2024 Lumpectomy, breast, with needle localization SUTURE,LIGA CLIP SM LT-100 FDA Start: 04-04-2024 Lumpectomy, breast, with needle localization SUTURE,LIGA CLIP SM LT-100 FDA Start: 04-04-2024 Mental Status Date Assessment Result Facility 01-28-2025 Cognitive function Awake;Appropr iate;Follows Commands [facility] Work Phone: 08-01-2024 Cognitive function Awake;Alert;A ppropriate;Follo ws Commands [facility] Work Phone: 07-04-2023 Cognitive function Level Of Consciousness Awake [facility] Work Phone: 07-04-2023 Cognitive function Level Of Cons ciousness Awake;Appropriate;Follows Commands;Disoriented [facility] Work Phone: 05-27-2022 Cognitive function Appropriate;Cooperativ e [facility] Work Phone: Clinical Notes 07-04-2023 to 01-28-2025 Note Date & Type Note Facility 01-28-2025 Progress note [facility] 10-29-2024 Evaluation note Diagnosis Onset Date Resolution Invasive ductal carcinoma of breast acute October 29 1:14pm [facility] Work Phone: 1(892) 369-890404-07-2025 Evaluation note* Diagnosis Onset Date Resolution Status Admit Date Invasive ductal carcinoma of breast acute October 29, 2024 1:14pm Invasive ductal carcinoma of breast acute January 28, 2025 1 2:43pm [facility] Work Phone: 1(997) 854-630909-11-2024 [facility] Medical Records Department [address] [place] [address] History Physical Exam 04/04/24 1041 MR#: [id number] Acct: [id number] Name: ESTRADA MURO Rep #: [id number] : 1940 83 From: Miguel Mariee MD PCP: Dr. Antonella Loyola, DO Status:[facility] Location: [place] [address] History and Physical Date of Service: 03/29/24 MR#: [id number] Acct: [id number] Name: ESTRADA MURO Rep #: [id number] : 1940 Provider: Dr. Miguel Mariee MD Age/Sex: 83/F Location: [facility] Status: Signed Intake Vital Signs 03/14/2415:28 03/29/2408:07 [...] Breast Breast: Yes ab (more content not included)...[facility] 07-04-2023 Discharge summary Author Marcos Beckford [facility] July 04, 2023 7:35pm Note Date/Time July 04, 2023 6:26pm [facility] Medical Records Department [address] [place] [address] Emergency Department Summary 07/04/23 MR#: [id number] Acct: [id number] Name: ESTRADA MURO Rep #:[id number] : [...] so he returned to the emergency department. [facility] Medical History Anxiety Arthritis Depression Enteritis Environmental [...] sinus headache. They were told to use yfxd-nof-gexwoml medications such as Claritin, and Coricidin HBP [...] if not improving Activity Restrictions/Additional Instructions: Use vkes-ptf-rdsjgac medications like Claritin is an antihistamine. You [...] your Primary Care Provider. Call [facility] ([phone]) or report to the closest Emergency Room. Call 911 if necessary. 07/04/231934 <Electronically signed by Marcos Beckford MD> Cosigner Signature (if applicable): CC: Dr. Antonella Loyola DO ~ Signed [facility] Work Phone: Discharge summary Author [facility] July 04, 2023 11:11am Note Date/Time July 04, 2023 10:06am [facility] Medical Records Department [address] [place] [address] Emergency Department Summary 07/04/23 MR#: [id number] Acct: [id number] Name: ESTRADA MURO Rep #:[id number] : [...] There is no clonus right or left. [place] Coma Scale: document GCS findings Spontaneous Obeys [...] 84.9 H Lymph % (Auto) 6.7 L [place] % (Auto) 7.2 Eos % (Auto) 0.2 [...] Primary Care Provider: Antonella Loyola Referrals: Antonella Looyla DO [Primary Care Provider] - As Needed Disposition Disposition: Home, Self Care What to do if you have Problems For any increased pain, shortness of breath, bleeding, nausea or vomiting, chestpain, or any unexpected problems, contact your Primary Care Provider. Call [facility] ([phone]) or report to the closest Emergency Room. Call 911 if necessary. 07/04/23 1111 <Electronically signed by Al Bassett MD> Cosigner Signature (if applicable): CC: Dr. Antonella Loyola DO ~ Signed [facility] Work Phone: Evaluation noteNo assessment information available [facility] Work Phone: Evaluation note* Diagnosis Onset Date Resolution Status Degenerative spondylolisthesis acute [facility] Work Phone: Evaluation note* Diagnosis Onset Date Resolution Status Degenerative spondylolisthesis acute Degenerative spondylolisthesis acute Spinal stenosis at L4-L5 level acute [facility] Work Phone: Hospital Discharge instructions Additional Instructions Use iclj-uuu-hqyizgs medications like Claritin is an antihistamine. You may also use a decongestant such as Coricidin HBP. Avoid use of pseudoephedrine or products that will elevate her blood pressure. You may use the nasal steroid 1 spray per nostril per day for up to 5 days.[facility] Work Phone: Hospital Discharge instructionsAdditional Instructions Keep the area clean. Pat dry after showering. You can apply bacitracin and a bandage. The stitches need removed in 10 days. Please be seen immediately if you develop signs of infection like significant redness, swelling, pus, increased pain or fever.[facility] Work Phone: Progress note Author Laurence Mayer [facility] Note Date/Time January 28, 2025 1:47p m [facility] [address] [place] [address] OFFICE VISIT Date of Service: 01/28/25 1308 MR#: [id number] Acct: [id number] Name: ESTRADA MURO Rep #: [id number] : 1940 From: Laurence obrien MD Age/Sex: 84/F Location[facility] Status: Signed HPI Subjective Date of Service [...] present Additional Findings: None Breast Marker Study: [id number] ER: >95% HI: 0% Her2: 2+ (equivocal) Ki67:5% Negative for overexpression of DSS3bwe by FISH April 04, 2024 left breast [...] muscle: No skeletal muscle present Histologic Grade (Douglas grade): Glandular/tubular differentiation score: 2 Nuclear pleomorphism [...] Ancillary studies: Previously performed on same tumor ([id number] / [id number]). ER: Positive, >95% HI: Negative, 0%, Her2 annie: 2+ by immunohistochemistry and not amplified (1.1) by in situ hybridization Ki67: 5% Clinical history: Mass of breast PATHOLOGIC STAGE: T1c Nx Mx Treatment summary and response: March 2024 left breast lumpectomy. April 2024 anastrozole [facility] Medical History Screening for breast cancer [...] grade 2, ER positive (over 95% strong) HI negative (0%) HER2/annie not overexpressed (2+ on [...] Follow-up in 6 months. Laurence Mayer MD Repertoire Manager, [facility] Divisions of Medical Oncology & Hematology Department of Internal Medicine [place] [address] This note was generated using a voice [...] No 01/28/25 1347 <Electronically signed by Laurence menjiavr MD> Date _ Laurence Mayer MD Cosigner Signature: Date (if applicable) CC: ~ [facility] Work Phone: Reason for referral (narrative)No reason for referral [facility] Work Phone: Family History No Family History [...] Will Yes March 20 5:10am Power of Bus Repair Supervisor Yes March 20 5:10am Advance Directive Response Recorded Date/ Time Name of Medical Power of Bus Repair Supervisor PHILL Chi May 27, 2022 6:52pm Living Will Yes May 27 6:52pm Power of Bus Repair Supervisor Yes May 27, 2022 6:52pm Advance Directive Response Recorded Date/ Time Living Will Yes May 27 6:52pm Power of Bus Repair Supervisor Yes May 27, 2022 6:52pm Advance Directive Response Recorded Date/ Time Living Will Yes November 23, 2022 12 :11pm Power of Bus Repair Supervisor Yes November 23, 2022 12:11pm Advance Directive Response Recorded Date/ Time Living Will Yes July 04 9:20am Power of Bus Repair Supervisor Yes July 04, 2023 9:20am Name of Medical Power of Bus Repair Supervisor July 04, 2023 9:20am Advance Directive Response Recorded Date/ Time Name of Medical Power of Bus Repair Supervisor July 04, 2023 9:20am Living Will No July 04 6:04pm Power of Bus Repair Supervisor No July 04, 2023 6:04pm Advance Directive Response Recorded Date/ Time Do you have a Healthcare Power of Bus Repair Supervisor? Yes January 20, 2025 3:02pm Advance Directive Response Recorded Date/ Time Living Will No March 29 3:41pm Do you have a Healthcare Power of Bus Repair Supervisor? No March 29, 2024 3:41pm Do you have a Healthcare Power of Bus Repair Supervisor? Yes January 20, 2025 3:02pm Chief Complaint [...] 2024 End: October 29, 2024 Cecilia Campbell ERGONOMIST, ERGONOMIST-C Attending Provider Active Start: October 29, 2024 [...] Active Start: January 28, 2025 Ceciliajaneen WelchShannan ERGONOMIST, ERGONOMIST-C Attending Provider Active Start: January 28, 2025 Cecilia Shannan ERGONOMIST, ERGONOMIST-C Referring Provider Active Start: January 28, 2025 [...] Active Start: January 28, 2025 Cecilia Shannan ERGONOMIST, ERGONOMIST-C Attending Provider Active Start: January 28, 2025 Cecilia Shannan ERGONOMIST, ERGONOMIST-C Referring Provider Active Start: January 28, 2025 Team Status: Inactive Member Role/Relationship Status Dates Dr. Antonella Loyola DO Primary Care Provider Active Start: February 15, 2025 End: February 15, 2025 Cecilia Shannan ERGONOMIST, ERGONOMIST-C Attending Provider Active Start: February 15, 2025 End: February 15, 2025 Cecilia Shannan ERGONOMIST, ERGONOMIST-C Referring Provider Active Start: February 15, 2025 End: February 15, 2025 INFORMATION SOURCE (unrecogn ized section and content) DATE CREATED AUTHOR 02/22/2025 [facility] FOR RECORDS PERTAINING TO PATIENTS WHO [...] BE BASED ON THE PRIMARY CLINICAL RECORDS. [facility] provides no warranty or guarantee of the accuracy or completeness of information in this document.
--- NOTE | 2025-07-17 13:18 | EKG12_ITS ---
Test Reason : Blood Pressure : */* mmHG Vent. Rate : 83 BPM Atrial Rate : 83 BPM P-R Int : 170 ms QRS Dur : 90 ms QT Int : 414 ms P-R-T Axes : 58 -8 22 degrees QTcB Int : 486 ms Sinus rhythm with Premature atrial complexes Nonspecific ST abnormality QTcB >= 480 msec Abnormal ECG Confirmed by Rodrigo Hanks ([id number]), features editor MARITZA MURRAY ([id number]) on 07/19/2025 8:00:39 AM Referred By: ZAFAR Confirmed By: Rodrigo Hanks
[2025-07-17 13:43] LABS: Hematocrit 35.9 % (37-47); Hemoglobin 11.6 g/dL (12.0-15.0); Immature Granulocytes Count 0.020 X10^3/uL (0.0-0.0); Mean Corp Hgb Conc 32.3 g/dL (32-36); Mean Corpuscular Volume 99.4 fL (81-99); Mean Platelet Vol. 11.7 fl (6.2-12.0); NRBC Flagged by Analyzer 0 % (0-5); POSITIVE DIFFERENTIAL YES; Platelet Count 148 K/mm3 (150-450); RBC Distribution Width CV 13.2 % (11.6-14.6); RBC Distribution Width SD 48.0 fl (35.1-43.9); Red Blood Count 3.61 M/mm3 (4.2-5.4); White Blood Count 7.3 K/mm3 (4.4-11.0)
--- NOTE | 2025-07-17 13:51 | CT_ITS ---
PROCEDURE: BRAIN/HEAD WITHOUT CONTRAST 07/17/2025 REASON FOR EXAM: Clinical history of altered mental status TECHNIQUE: Procedure Code: CTBR Modality: CT Procedure: BRAIN/HEAD WITHOUT CONTRAST Coronal and Sagittal reconstruction series were provided. One or more dose reduction techniques were used (e.g., Automated exposure control, adjustment of the mA and/or kV according to patient size, use of iterative reconstruction technique. RADIATION DOSE SUMMARY: DLP: 846.73 mGycm COMPARISON: CT head 07/04/2023 FINDINGS: No acute hemorrhage. No acute transcortical infarct. Patchy periventricular and subcortical white matter hypodensities likely reflect chronic microvascular ischemic changes. No significant mass effect or brain herniation. Global cerebral volume loss. No hydrocephalus. No extra-axial fluid collection. The basal cisterns are patent. The mastoid air cells are clear. Scattered paranasal mucosal thickening. Left middle turbinate arianna bullosa. Evidence of prior maxillary facial reconstruction. Bilateral ocular lens replacements. The calvarium appears intact. Air pockets in the bilateral cavernous sinuses, likely iatrogenic. Atherosclerotic calcification of the carotid siphons. CT/Brain/Head without Contrast IMPRESSION: No CT evidence of acute intracranial hemorrhage, transcortical infarct, or sign ificant mass effect. Reading Location: [facility]
--- NOTE | 2025-07-17 13:59 | RAD_ITS ---
PROCEDURE: CHEST 1 VIEW (PORTABLE) 07/17/2025 REASON FOR EXAM: URI, AMS Dementia. TECHNIQUE: Frontal view of the chest. COMPARISON: No relevant prior. FINDINGS: Lungs: Lungs clear of pneumonia and congestion. Pleura: No pleural effusions, thickening, or pneumothorax. Heart: Normal in size and configuration. Mediastinum/Giuliana: Unremarkable. Great vessels: Unremarkable. Bones/soft tissues: Cardiac monitoring leads overlie the chest wall. RAD/Chest 1 View (Portable) IMPRESSION: No active cardiopulmonary disease. Reading Location: [place] [id number]
--- NOTE | 2025-07-17 14:00 | EX.ED.DYSGE1 ---
HPI History of Present Illness Chief Complaint: Weakness Informant: patient Narrative Narrative: Patient is 84-year-old female with history of dementia, history of breast cancer stage I, hypertension, anxiety and thyroid cancer presenting with for concern of altered mental status. States she woke up and was acting normally. She did her normal walking around the house. She sat in the chair and then seem to be staring off and not talking. He states that she took a nap and slept a lot which is abnormal. After that she seemed very stiff and out of it. He also notes that she has had some congestion today which is new. No cough or fever reported. Not eating and drinking as much as she normally would today. He was quite concerned about her acute mental status change and brought her in for further evaluation. States she currently seems to be improving but is not back to baseline. Did have a urinary tract infection last month at that time was having urinary frequency as her symptom. No sick contacts reported. No other complaints or concerns at this time. No report of any head injuries or falls. 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 Breast cancer Osteoporosis Wears hearing aid Wears glasses Osteoporosis Anxiety Depression Non-smoker Migraines Thyroid cancer Sciatica Arthritis Environmental allergies Hypothyroid HTN (hypertension) Enteritis Home Medications ?Medication ?Instructions ?Recorded ?Last Taken ?Type levothyroxine 75 mcg tablet 75 mcg PO SUTUTHSA 02/22/24 06/09/25 History (Synthroid) levothyroxine 88 mcg tablet 88 mcg PO MOWEFR 02/22/24 06/10/25 History (Synthroid) duloxetine 20 mg capsule,delayed 20 mg PO BID 03/29/24 06/10/25 History release lisinopril 20 mg tablet 20 mg PO BID 03/29/24 06/10/25 History anastrozole 1 mg tablet 1 mg PO QDAY #90 tabs 05/15/25 06/09/25 Rx aspirin 81 mg tablet 81 mg PO DAILY 06/10/25 06/10/25 History biotin 1 tab PO DAILY 06/10/25 06/10/25 History cephalexin 500 mg capsule 500 mg PO BID 7 days #14 caps 06/10/25 Unknown Rx cyanocobalamin (vitamin B-12) 1 tab PO DAILY 06/10/25 06/10/25 History memantine 28 mg capsule 28 mg PO DAILY 06/10/25 06/10/25 History sprinkle,extended release 24hr nirmatrelvir 300 mg (150 mg See Rx Instructions PO .COMPLEX 07/17/25 Unknown Rx x2)-ritonavir 100 mg tablet,dose #30 tabs pack (Paxlovid) ondansetron 4 mg disintegrating 4 mg PO Q8H PRN PRN Nausea #10 tabs 07/17/25 Unknown Rx tablet Allergy/AdvReac Type Severity Reaction Status Date / Time No Known Allergies Allergy Verified 07/17/25 12:42 Family History Other No pertinent family history Surgical History S/P breast lumpectomy H/O thyroidectomy History of facial surgery s/p pelvic floor reconstruction S/P hysterectomy Social History household members: spouse Smoking Status: Never smoker alcohol intake: never substance use type: does not use ROS ROS ED ROS Narrative Review systems relayed by ?patient is a poor historian Constitutional Constitutional ED: Denies chills or fever(s) ENT ENT ED: Reports other Details: Nasal congestion Cardiovascular Cardiovascular: Denies chest pain Respiratory/Chest Respiratory/Chest: Denies cough or dyspnea Gastrointestinal Gastrointestinal: Denies abdominal pain, constipation, diarrhea or vomiting Genitourinary Genitourinary ED: Denies urinary frequency Musculoskeletal Musculoskeletal: Denies arthralgias or myalgias Neurologic Neurologic: Reports weakness and other Details: Increased confusion ; Denies paresthesias Hematologic/Lymphatic Hematologic/Lymphatic: Denies easy bleeding or easy bruising EXAM Physical Exam Const Vital Signs: 07/17/25 12:39 07/17/25 13:39 07/17/25 14:38 Temperature 98.8 F Temperature Source Oral Pulse Rate 72 85 Respiratory Rate 16 Respiratory Effort Normal Non-Labored Blood Pressure 172/87 H 163/85 H Blood Pressure Mean 115 111 Pulse Ox 97 96 Oxygen Delivery Method Room Air Room Air 07/17/25 14:54 Temperature 98.8 F Temperature Source Pulse Rate 85 Respiratory Rate 16 Respiratory Effort Blood Pressure 163/85 H Blood Pressure Mean 111 Pulse Ox 96 Oxygen Delivery Method Positive well nourished and well developed General Appearance ED: well developed and NAD HEENT HEENT Narrative: Mild nasal congestion present. Hearing aids in place. Mildly dry mucosal membranes Chest Wall inspection of chest normal Resp normal respiratory effort and clear to auscultation bilaterally Cardio regular rate, regular rhythm and no murmurs GI normal to inspection, nondistended, normoactive bowel sounds Extremity normal to inspection Neuro Neuro Narrative: Patient minimally verbal but seems to respond to her name. This is her baseline per . Moving all extremities. Intermittently follows commands. No focal weakness appreciated. Intermittently speaks and then she does not have any dysarthria. Sensorium / Orientation: alert and orientation impaired Psych mental status grossly normal Attitude: No agitated Mood & Affect: Negative for depressed or anxious Skin no rashes or lesions noted and no wounds MDM MDM MDM Narrative Medical decision making narrative: Patient evaluated for change in mental status today. Had some associated congestion. Is not toxic appearing. states she seems little improved now but still not quite back to her baseline. No report of any trauma. Brought her in for further evaluation. She does have significant underlying dementia and follows with palliative care for this. Differential includes is not limited to delirium, intracranial hemorrhage, sepsis, secondary infection, pneumonia, urinary tract infection, [place] and electrolyte derangement. Vital signs significant for mild hypertension but otherwise she is hemodynamically stable. She has a mild anemia with a hemoglobin of 11.6 which is stable and at baseline for her. CMP largely unremarkable. Urinalysis not consistent with infection. Chest x-ray does not show any acute process which is reviewed by myself as well as radiology. EKG does not show any acute ischemic changes or arrhythmia. CT of the brain does not show any acute process. Patient is positive for COVID-19 infection. Suspect this is because of her congestion. She does not have any O2 demands. She overall is quite well-appearing. Suspect she could have some worsening of her dementia secondary to her infection. Will be prescribed Paxlovid given her age and comorbidities as well as Zofran. Discussed with that if she seems to be worsening, have concerns of dehydration, difficulty breathing or inability to care for her at home she should return to the emergency room. He verbalizes understand this. Patient discharged home in stable condition. Lab Data Attestation: I reviewed the patient's lab results. Labs: Laboratory Results - last 24 hr 07/17/25 07/17/25 13:35 14:12 WBC 7.3 RBC 3.61 L Hgb 11.6 L Hct 35.9 L MCV 99.4 H MCH 32.1 H MCHC 32.3 RDW Std Deviation 48.0 H RDW Coeff of Cassandra 13.2 Plt Count 148 L MPV 11.7 Immature Gran % (Auto) 0.300 Neut % (Auto) 86.1 H Lymph % (Auto) 5.2 L [place] % (Auto) 7.8 Eos % (Auto) 0.3 Baso % (Auto) 0.3 Absolute Neuts (auto) 6.3 Absolute Lymphs (auto) 0.38 L Nucleated RBC % 0 Sodium 139 Potassium 3.7 Chloride 103 Carbon Dioxide 24.8 Anion Gap 11 BUN 22 H Creatinine 0.86 Estim Creat Clear Calc 44.91 L Est GFR (MDRD) Non-Af 67 BUN/Creatinine Ratio 25.9 H Glucose 111 H Calcium 9.1 Total Bilirubin 0.34 AST 21 ALT 8 Alkaline Phosphatase 55 Total Protein 7.2 Albumin 4.4 Globulin 2.8 Albumin/Globulin Ratio 1.6 Urine Color Yellow Urine Clarity Clear Urine pH 6.0 Ur Specific Hodge 1.020 Urine Protein 15 H Urine Glucose (UA) Normal Urine Ketones 5 H Urine Occult Blood 10 H Urine Nitrite Negative Urine Bilirubin Negative Urine Urobilinogen Normal Ur Leukocyte Esterase Negative Urine RBC 0-5 SEEN Urine WBC 0-5 SEEN Ur Squamous Epith Cells 0-5 SEEN Urine Bacteria RARE Urine Mucus 1+ Radiography Diagnostic Testing: Clinical Impression(s) from Imaging Studies Brain CT 07/17/25 13:51 IMPRESSION: No CT evidence of acute intracranial hemorrhage, transcortical infarct, or significant mass effect. Reading Location: [id number] Chest X-Ray 07/17/25 13:59 IMPRESSION: No active cardiopulmonary disease. Reading Location: [place] [id number] Rhythm Strip Rhythm Strip: Sinus Rhythm Rate: 85 Ectopy: None EKG Initial EKG: Attestation: I personally reviewed and interpreted this EKG as follows: Interpretation: Sinus Rhythm Comments: Normal sinus rhythm of 85 bpm Normal axis Normal intervals Normal ST segments Discharge Plan Triage Chief Complaint: Weakness ED Provider: Daisy Armendariz Dx/Rx/DC Orders Clinical Impression: COVID-19, Confusion and disorientation Instructions: Coronavirus Disease 2019 (COVID-19): Caring for Yourself or Others, ED Confusion Prescriptions: New Paxlovid 300 mg (150 mg x 2)-100 mg tablets,dose pack See Rx Instructions .ROUTE .COMPLEX Qty: 30 0RF Rx Instructions: take TWO 150 mg tablets of nirmatrelvir with ONE 100 mg tablet of ritonavir twice daily for 5 days ondansetron 4 mg tablet,disintegrating 4 mg PO Q8H PRN PRN (Reason: Nausea) Qty: 10 0RF No Action levothyroxine [Synthroid] 88 mcg tablet 88 mcg PO MOWEFR levothyroxine [Synthroid] 75 mcg tablet 75 mcg PO SUTUTHSA lisinopril 20 mg tablet 20 mg PO BID duloxetine 20 mg capsule,delayed release(DR/EC) 20 mg PO BID memantine 28 mg capsule,sprinkle,ER 24hr 28 mg PO DAILY aspirin 81 mg tablet 81 mg PO DAILY biotin 1 tab PO DAILY cyanocobalamin (vitamin B-12) 1 tab PO DAILY cephalexin 500 mg capsule 500 mg PO BID 7 Days Qty: 14 0RF anastrozole 1 mg tablet 1 mg PO QDAY Qty: 90 3RF Primary Care Provider: Antonella Loyola Referrals: Antonella Loyola DO [Primary Care Provider, Family Practice] Activity Restrictions/Additional Instructions: Your workup was positive for COVID-19. The remainder of your labs was largely normal and reassuring. Your imaging was normal and reassuring. Please follow-up with your family doctor later this week. Push fluids at home. Take Tylenol as needed for fever or discomfort. If you do have worsening symptoms or other concerns please return to the emergency room. Print Language: Montserratian Disposition Disposition: Home, Self Care
[2025-07-17 14:17] LABS: AST(SGOT) 21 U/L (<=31); Alanine Aminotransfer ALT/SGPT 8 U/L (<=34); Albumin, Serum 4.4 g/dL (3.4-4.8); Alkaline Phosphatase 55 U/L (35-104); Anion Gap 11 (7-18); BUN 22 mg/dL (4-19); BUN/Creat Ratio 25.9 RATIO (10-20); Calcium,Total 9.1 mg/dL (7.6-11.0); Carbon Dioxide 24.8 mmol/L (20.0-29.0); Chloride 103 mmol/L (96-106); Estimated Creatinine Clearance 44.91 ml/min (50-250); Globulin 2.8 g/dL (2.2-4.2); Glucose 111 mg/dL (70-99); Potassium 3.7 mmol/L (3.5-5.1)
[2025-07-17 14:24] LABS: Color, Urine Yellow (Yellow); Glucose, Dipstick Normal (Normal); Ketone-Dipstick 5 mg/dl (Negative); Leukocyte Esterase-Dipstick Negative /ul (Negative); Nitrite-Dipstick Negative (Negative); Occult Blood-Urine 10 /ul (Negative); Protein-Dipstick 15 mg/dl (Negative); Specific Gravity, Urine 1.020 (1.002-1.030); Urine Bilirubin Dipstick Negative (Negative)
[2025-07-17 14:36] LABS: Red Blood Cells-Urine 0-5 SEEN /hpf (0-5); Squamous Epithelial Cells - UA 0-5 SEEN /hpf (5-10)
[2025-07-17 14:37] LABS: Mucous, Urine 1+ /hpf (<or=2+)
[2025-07-17 14:38] VITALS: BP 163/85; PULSE 85; O2SAT 96
[2025-07-17 14:54] VITALS: BP 163/85; PULSE 85; RESP 16; TEMP 37.1; O2SAT 96
== END 2025-07-17 15:18 | disposition home or self-care (01) ==
PROVIDERS: Emergency Provider Emergency Medicine; PCP Family Medicine; Visit Provider Emergency Medicine
DX: U07.1 COVID-19 (principal); F03.90 Unspecified dementia, unspecified severity, without behavioral disturbance, psychotic disturbance, mood disturbance, and anxiety; I10 Essential (primary) hypertension; Z79.899 Other long term (current) drug therapy
CPT/HCPCS: 70450; 71045; 80053; 81001; 85025; 87631; 93005; 99285; P9612; A4216

== ENCOUNTER 2025-07-17 16:49 | Emergency (ER) | payer MEDICARE, OTHER, SELFPAY ==
[2025-07-17 16:50] VITALS: BP 167/88; PULSE 84; RESP 16; TEMP 37.1; O2SAT 98
--- NOTE | 2025-07-17 16:59 | EX.ED.DYSGE1 ---
HPI History of Present Illness Chief Complaint: General Illness [facility] Medical History (Updated 07/17/25 @ 18:[address] 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 Breast cancer Osteoporosis Wears hearing aid Wears glasses Osteoporosis Anxiety Depression Non-smoker Migraines Thyroid cancer Sciatica Arthritis Environmental allergies Hypothyroid HTN (hypertension) Enteritis Home Medications ?Medication ?Instructions ?Recorded ?Last Taken ?Type levothyroxine 75 mcg tablet 75 mcg PO SUTUTHSA 02/22/24 06/09/25 History (Synthroid) levothyroxine 88 mcg tablet 88 mcg PO MOWEFR 02/22/24 06/10/25 History (Synthroid) duloxetine 20 mg capsule,delayed 20 mg PO BID 03/29/24 06/10/25 History release lisinopril 20 mg tablet 20 mg PO BID 03/29/24 06/10/25 History anastrozole 1 mg tablet 1 mg PO QDAY #90 tabs 05/15/25 06/09/25 Rx aspirin 81 mg tablet 81 mg PO DAILY 06/10/25 06/10/25 History biotin 1 tab PO DAILY 06/10/25 06/10/25 History cephalexin 500 mg capsule 500 mg PO BID 7 days #14 caps 06/10/25 Unknown Rx cyanocobalamin (vitamin B-12) 1 tab PO DAILY 06/10/25 06/10/25 History memantine 28 mg capsule 28 mg PO DAILY 06/10/25 06/10/25 History sprinkle,extended release 24hr nirmatrelvir 300 mg (150 mg See Rx Instructions PO .COMPLEX 07/17/25 Unknown Rx x2)-ritonavir 100 mg tablet,dose #30 tabs pack (Paxlovid) ondansetron 4 mg disintegrating 4 mg PO Q8H PRN PRN Nausea #10 tabs 07/17/25 Unknown Rx tablet ondansetron 4 mg disintegrating 4 mg PO Q8H PRN PRN Nausea #10 tabs 07/17/25 Unknown Rx tablet Allergy/AdvReac Type Severity Reaction Status Date / Time No Known Allergies Allergy Verified 07/17/25 16:50 Family History (Updated 07/17/25 @ 17:[address] Tamiko Sierra MD) Mother Diabetes Heart disease Father Diabetes Heart disease Surgical History (Updated 07/17/25 @ 17:[address] Tamiko Sierra MD) S/P cataract extraction S/P breast lumpectomy H/O thyroidectomy History of facial surgery s/p pelvic floor reconstruction S/P hysterectomy Social History household members: spouse Smoking Status: Never smoker alcohol intake: never substance use type: does not use EXAM Physical Exam Const Vital Signs: 07/17/25 16:50 07/17/25 17:05 07/17/25 17:07 Temperature 98.7 F 98.7 F Temperature Source Oral Oral Pulse Rate 84 84 Respiratory Rate 16 16 Respiratory Effort Respiratory Pattern Blood Pressure 167/88 H 173/84 H 173/84 H Blood Pressure Mean 114 113 113 Pulse Ox 98 96 Oxygen Delivery Method Room Air Room Air 07/17/25 17:08 07/17/25 18:00 Temperature 98.2 F Temperature Source Oral Pulse Rate 78 Respiratory Rate 14 Respiratory Effort Normal Non-Labored Respiratory Pattern Normal Blood Pressure 187/71 H Blood Pressure Mean 109 Pulse Ox 97 Oxygen Delivery Method Room Air MDM MDM MDM Narrative Medical decision making narrative: HISTORY OF PRESENT ILLNESS: Chief complaint: Generalized weakness, decreased p.o. intake 84-year-old female history of dementia, breast cancer, hypothyroidism, hypertension presents with diffuse weakness. Per he states I cannot get her to eat or drink. I cannot care for her at home. He states she may have passed out earlier. He also is concerned because she did not eat. He notes he left the ED approxi-3 PM and she has not eaten since. (It is currently 5 PM) REVIEW OF SYSTEMS: Pertinent positives: As per HPI Pertinent negatives: As per HPI PHYSICAL EXAM: Nursing triage notes reviewed, Vital signs reviewed Constitutional: please see mdm HENT: MMM Eyes: Pupils equal round and reactive to light, Extraocular muscles intact Neck: No stridor, no JVD, full neck ROM Lungs: Clear to auscultation, No wheezing or rales. No increased work of breathing, no conversational dyspnea, no accessory muscle use, no nasal flaring. No respiratory distress noted Heart: Regular rate and rhythm, No murmurs, No rubs and No gallops, 2+ distal pulses (radial, femoral, posterior tibial) in all extremities Abdomen: Soft, there is no tenderness, rigidity, rebound or guarding, no obvious peritoneal signs, no palpable pulsatile abdominal masses, no auscultated abdominal bruit : No CVAT Extremities: No edema Neuro: Alert, oriented to time and place but not to person (baseline per ). Moves all 4 extremities, appears to have sensation in all 4 extremities, Skin: No rash or lesions noted MEDICAL DECISION MAKING: Chief Complaint: please see HPI External records reviewed: Seen earlier today and diagnosed with COVID-19. Reviewed labs images from earlier. CBC with no leukocytosis, mild anemia, no thrombocytopenia BMP without evidence of significant electrolyte abnormalities, no anion gap, no acute kidney injury. LFTs show no evidence of hepatobiliary pathology. Urinalysis shows no evidence of urinary inflammation suggestive of UTI Chest x-ray from earlier shows no acute process CT scan of the brain from earlier shows no evidence of ICH Factors affecting care: COVID-19, as per [facility] Social determinants of health: Elderly History obtained from others: The patient's Consults: None [facility] Narrative: The patient was initially hemodynamically stable, afebrile and nontoxic-appearing. Exam without focal neurologic deficits. No cardiopulmonary abnormalities. No stigmata of VTE or CHF. The synthesis of the patient's history, physical exam, earlier labs images suggest likely weakness and failure to thrive secondary to sequela of COVID-19 infection Given report of near syncope I did obtain additional labs and images to assess any signs of myocardial ischemia, arrhythmia, electrolyte disturbances or anemia Given concern for poor p.o. intake I gave 500 cc bolus and Zofran I also obtained a broad lab and imaging workup to further elucidate any etiology that can cause syncope. EKG with normal sinus rhythm rate 83, left ax deviation, prolonged QTc 486, no STEMI High-sensitivity troponin is negative, no evidence of myocardial ischemia BNP without significant electrolyte maladies, no [place] CBC with no leukocytosis, baseline anemia no normal cytopenia I have personally reviewed the patient's chest x-ray. Chest x-ray is unremarkable for pulmonary edema, pneumothorax, pneumonia or focal cardiopulmonary abnormality. On re-evaluation the patient was able to tolerate p.o. She is able to ambulate out difficulty. She was not hypoxic. There is no indication for admission at this time. Symptoms likely behavioral secondary to relative confusion given history of dementia. Discussed with who is comfortable caring for her at home. Patient be discharged The patient and/or family, caregivers express understanding. The patient and/or family, caregivers agrees with the plan. Shared decision making: I will have a discussion with the patient and or visitors regarding risk/benefits of further testing or admission. They will be made aware of of the risk/benefits inherent in this decision they will be given the opportunity to voice understanding. Total critical care time today provided was at least 0 minutes. This excludes separately billable procedures. Critical care time (if documented) is secondary to the patient having high probability of clinically significant/life threatening deterioration in the patient's condition which required my urgent intervention. Impression: 1. Diffuse weakness 2. COVID-19 infection Dispo: Discharge home This note was generated with [employer] dictation software. It may contain incorrect words, spelling, and punctuation that were not noted in review of the chart prior to signing. Lab Data Labs: Laboratory Results - last 24 hr 07/17/25 17:30 WBC 8.6 RBC 3.63 L Hgb 11.7 L Hct 36.1 L MCV 99.4 H MCH 32.2 H MCHC 32.4 RDW Std Deviation 47.7 H RDW Coeff of Cassandra 13.2 Plt Count 146 L MPV 12.0 Immature Gran % (Auto) 0.500 Neut % (Auto) 87.1 H Lymph % (Auto) 5.3 L Johnson % (Auto) 6.8 Eos % (Auto) 0.1 Baso % (Auto) 0.2 Absolute Neuts (auto) 7.5 Absolute Lymphs (auto) 0.45 L Nucleated RBC % 0 Sodium 138 Potassium 3.8 Chloride 101 Carbon Dioxide 24.8 Anion Gap 12 BUN 19 Creatinine 0.76 Estim Creat Clear Calc 47.42 L Est GFR (MDRD) Non-Af 79 BUN/Creatinine Ratio 25.0 H Glucose 125 H Calcium 9.0 Troponin T High Sens 16 H Radiography Diagnostic Testing: Clinical Impression(s) from Imaging Studies Chest X-Ray 07/17/25 17:36 IMPRESSION: No acute cardiopulmonary disease. Reading Location: [facility] Discharge Plan Triage Chief Complaint: General Illness Other Complaint: Weakness ED Provider: Canelo Pham Dx/Rx/DC Orders Clinical Impression: COVID-19 Instructions: Symptoms of COVID-19 Infection Prescriptions: New ondansetron 4 mg tablet,disintegrating 4 mg PO Q8H PRN PRN (Reason: Nausea) Qty: 10 0RF No Action levothyroxine [Synthroid] 88 mcg tablet 88 mcg PO MOWEFR levothyroxine [Synthroid] 75 mcg tablet 75 mcg PO SUTUTHSA lisinopril 20 mg tablet 20 mg PO BID duloxetine 20 mg capsule,delayed release(DR/EC) 20 mg PO BID Paxlovid 300 mg (150 mg x 2)-100 mg tablets,dose pack See Rx Instructions .ROUTE .COMPLEX Qty: 30 0RF Rx Instructions: take TWO 150 mg tablets of nirmatrelvir with ONE 100 mg tablet of ritonavir twice daily for 5 days ondansetron 4 mg tablet,disintegrating 4 mg PO Q8H PRN PRN (Reason: Nausea) Qty: 10 0RF memantine 28 mg capsule,sprinkle,ER 24hr 28 mg PO DAILY aspirin 81 mg tablet 81 mg PO DAILY biotin 1 tab PO DAILY cyanocobalamin (vitamin B-12) 1 tab PO DAILY cephalexin 500 mg capsule 500 mg PO BID 7 Days Qty: 14 0RF anastrozole 1 mg tablet 1 mg PO QDAY Qty: 90 3RF Primary Care Provider: Antonella Loyola Referrals: Antonella Loyola DO [Primary Care Provider, Family Practice] Activity Restrictions/Additional Instructions: Thank you for trusting us with your care today! Your loved ones labs images were reassuring. No sign of heart damage to explain her history. I suspect your lack of appetite is related to her COVID-19 infection which can cause nausea, stomach discomfort. Please give prescribed Zofran (nausea medicine) as needed for nausea vomiting or decreased by mouth intake. Please schedule Tylenol and ibuprofen to improve symptoms related to COVID-19 infection as well. Please take Tylenol (2 pills, 650 mg), ibuprofen (2 pills, 400 mg) every 6 hours as needed for pain and fever control. Please return to the emergency department if your symptoms change or worsen. Please follow with your primary care physician for further outpatient evaluation and management. Print Language: Occitan Disposition Disposition: Home, Self Care
[2025-07-17 17:05] VITALS: BP 173/84
--- OUTSIDE RECORDS SUMMARY | 2025-07-17 17:06 | XMS RPT_ITS | CCD ---
Author Organization [facility] [place] [facility] Care Team Providers Care Casting Supervisor Name Role Phone Dr. Antonella Loyola Primary Care Provider Dr. Antonella Loyola Referring Provider Dr. Bernard Ewing Attending Provider Dr. Yaya Villagran Attending Provider Dr. Antonella Loyola DO Primary Care Provider Dr. Antonella Loyola DO Referring Provider Shannan SAWMILLING OPERATOR-C, Cecilia Attending Provider [phone] Hakeem Hayward MD Referring Provider Dr. Hakeem Hayward MD Emergency Provider Dr. Hakeem Hayward MD Attending Provider [phone] Dr. Laurence Mayer MD Attending Provider Shannan SAWMILLING OPERATOR-C, Cecilia Referring Provider [phone] Yonas ROLON, Dr. Crespo Attending Provider Miguel Mareie Referring Unavailable Miguel Mariee Attending Unavailable Morrisys, [...] Attending Unavailable Malys, Antonella Referring Unavailable Shannan SAWMILLING OPERATOR, Cecilia Attending Unavailable Malys, Antonella Primary Care Unavailable Shannan SAWMILLING OPERATOR, Cecilia Attending Unavailable Malys, Antonella Referring Unavailable Malys, Antonella Primary Care Unavailable Shanann SAWMILLING OPERATOR, Cecilia Referring Unavailable Shannan SAWMILLING OPERATOR, Cecilia Attending Unavailable Malys, Antonella Primary Care Unavailable Malys, Antonella Primary Care Unavailable Shannan SAWMILLING OPERATOR, Cecilia Referring Unavailable Shannan SAWMILLING OPERATOR, Cecilia Attending Unavailable Miguel Mariee Referring Unavailable [...] mg extended release oral capsule (3 sources) G-rgncrq-M-aspartate Receptor Antagonist Start: 02-22-2024 take 1 capsule [...] By: Misty White on 02-15-2025 Study report [facility] Imaging Services [address] [place], [place] [id number] SCRN MAMM (CAD)W/DESIRAE BILAT MR#: [id number] Acct: [id number] Name: ESTRADA MURO Bhanu Rep #: [id number] : 1940 F 84 From: Bryanna White MD PCP: Dr. Antonella Loyola, Status: REG CLI Study:SCRN MAMM (CAD)W/DESIRAE BILAT Date of Exa m: 02/15/25 Exam# [id number] Ordering Dr: Cecilia Graham NP SAWMILLING OPERATOR-C EXAM: SCRN MAMM (CAD)W/DESIRAE BILAT DATE: 02/15/2025 [...] be mailed to the patient. Reading Location: [facility] CC: SAWMILLING OPERATOR-C Cecilia Campbell; Dr. Antonella Loyola DO ~ Diagnostic Technologist: Signed [facility] SCRN MAMM (CAD)W/DESIRAE BILATo n 02-15-2025 SCRN MAMM (CAD)W/DESIRAE BILAT [facility] Imaging Services [address] [place] [id number] SCRN MAMM (CAD)W/DESIRAE BILAT MR#: [id number] Acct: [id number] Name: ESTRADA MURO Rep #: [id number] : 1940 F 84 From: Misty White MD PCP: Dr. Antonella Loyola DO Status: REG CLI Study: SCRN MAMM (CAD)W/DESIRAE BILAT Date of Exam: 01/23 12/16 Exam# [id number] Ordering Dr: Cecilia Campbell NP SAWMILLING OPERATOR -C EXAM: SCRN MAMM (CAD)W/DESIRAE BILAT DATE: [...] be mailed to the patient. Reading Location: [id number] CC: YOLA Campbell; Dr. Antonella Loyola DO Diagnostic Technologist: Signed Normal [facility] Absolute lymphocyte countOrd ered By: Cecilia Campbell on 01-28-2025 Lymphocytes Auto (Unsp spec) [#/Vol] 1.49 10*3/uL 0.83-4.51 [facility] Absolute neutrophil countOrd ered By: Cecilia Campbell on 01-28-2025 Neutrophils (Bld) [#/Vol] 4.3 10*3/uL 2.0-7.7 [facility] Anion gap in Serum or Plasma Ordered By: Cecilia Campbell on 01-28-2025 Anion gap [Moles/Vol] 8 mmol/L 5-15 [facility] Automated lymphocyte count a s percentage of total leukocytesOrdered By: Cecilia Campbell on 01-28-2025 Lymphocytes/100 WBC Auto (Unsp spec) 23.6 % 19-41 [facility] BUN/creatinine ratioOrdered By: Cecilia Campbell on 01-28-2025 Urea nitrogen/Creatinine [Mass ratio] 20.8 mg/mg High 10-20 [facility] Basophil percentageOrdered B y: Cecilia Campbell on 01-28-2025 Basophils/100 WBC (Bld) 0.8 % 0-1 [facility] Bilirubin, totalOrdered By: Cecilia Campbell on 01-28-2025 Bilirubin [Mass/Vol] 0.30 mg/dL 0.00-1.30 [facility] CBC W/Diff, Automatedon 07-0 7-2025 Absolute Lymph 1.49 X10 3/uL Normal 0.83-4.51 [facility] Comment on above: Performed By: #### L 501.2300, L100.0100, L500.4050 #### [facility] [address] [place], [address] Absolute Neut 4.3 X10 3/uL Normal 2.0-7.7 [facility] Comment on above: Performed By: #### L 501.2300, L100.0100, L500.4050 #### [facility] [address] [place], [address] Basophils/100 WBC (Bld) 0.8 % Normal 0-1 [facility] Comment on above: Performed By: #### L 501.2300, L100.0100, L500.4050 #### [facility] [address] [place], [address] Eosinophils/100 WBC (Bld) 0.9 % Normal 0-5 [facility] Comment on above: Performed By: #### L 501.2300, L100.0100, L500.4050 #### [facility] [address] [place], [address] Erythrocyte distribution width (RBC) [Ratio] 13.4 % Normal 11.6-14.6 [facility] Comment on above: Performed By: #### L 501.2300, L100.0100, L500.4050 #### [facility] [address] [place], [address] Hematocrit (Bld) [Volume fraction] 36.3 % Low 37-47 [facility] Comment on above: Performed By: #### L 501.2300, L100.0100, L500.4050 #### [facility] [address] [place], [address] Hemoglobin (Bld) [Mass/Vol] 11.5 g/dL Low 12.0-15.0 [facility] Comment on above: Performed By: #### L 501.2300, L100.0100, L500.4050 #### [facility] [address] [place], [address] IG% 0.200 Normal 0.0-0.9 [facility] Comment on above: Result Comment: IG% - Immature Granulocytes (promyelocytes, myelocytes and metamyelocytes) > 1% indicates that a LEFT SHIFT is Present. Performed By: #### L 501.2300, L100.0100, L500.4050 #### [facility] [address] [place], [address] Lymphocytes/100 WBC (Bld) 23.6 % Normal 19-41 [facility] Comment on above: Performed By: #### L 501.2300, L100.0100, L500.4050 #### [facility] [address] [place], [address] MCH (RBC) [Entitic mass] 31.7 pg Normal 27.0-32.0 [facility] Comment on above: Performed By: #### L 501.2300, L100.0100, L500.4050 #### [facility] [address] [place], [address] MCHC (RBC) [Mass/Vol] 31.7 g/dL Low 32-36 [facility] Comment on above: Performed By: #### L 501.2300, L100.0100, L500.4050 #### [facility] [address] [place], [address] MCV (RBC) [Entitic vol] 100.0 fL High 81-99 [facility] Comment on above: Performed By: #### L 501.2300, L100.0100, L500.4050 #### [facility] [address] [place], [address] Monocytes/100 WBC (Bld) 6.3 % Normal 0-10 [facility] Comment on above: Performed By: #### L 501.2300, L100.0100, L500.4050 #### [facility] [address] [place], [address] Neutrophils/100 WBC (Bld) 68.2 % Normal 47-70 [facility] Comment on above: Performed By: #### L 501.2300, L100.0100, L500.4050 #### [facility] [address] [place], [address] Nucleated RBC (Bld) [#/Vol] 0 10*3/uL Normal 0-5 [facility] Comment on above: Performed By: #### L 501.2300, L100.0100, L500.4050 #### [facility] [address] [place], [address] Platelet mean volume (Bld) [Entitic vol] 12.0 fL Normal 6.2-12.0 [facility] Comment on above: Performed By: #### L 501.2300, L100.0100, L500.4050 #### [facility] [address] [place], [address] Platelets (Bld) [#/Vol] 162 10*3/uL Normal 150-450 [facility] Comment on above: Performed By: #### L 501.2300, L100.0100, L500.4050 #### [facility] [address] [place], [address] RBC (Bld) [#/Vol] 3.63 10*6/uL Low 4.2-5.4 [facility] Comment on above: Performed By: #### L 501.2300, L100.0100, L500.4050 #### [facility] [address] [place], [address] RDW SD 49.8 fl High 35.1-43.9 [facility] Comment on above: Performed By: #### L 501.2300, L100.0100, L500.4050 #### [facility] [address] [place], [address] WBC (Bld) [#/Vol] 6.3 10*3/uL Normal 4.4-11.0 [facility] Comment on above: Performed By: #### L 501.2300, L100.0100, L500.4050 #### [facility] [address] [place], [address] Carbon dioxide, total [Moles /volume] in Central venous bloodOrdered By: Cecilia Campbell on 01-28-2025 CO2 [Moles/Vol] 26.3 mmol/L 21.0-32.0 [facility] Chloride assayOrdered By: Cam Campbell on 01-28-2025 Chloride [Moles/Vol] 105 mmol/L 98-108 [facility] Comprehensive Metabolic Prof ilon 01-28-2025 Albumin [Mass/Vol] 4.2 g/dL Normal 3.4-4.8 [facility] Comment on above: Performed By: #### L 501.2300, L100.0100, L500.4050 ####[facility] [address] [place], [address] Albumin/Globulin [Mass ratio] 1.7 {ratio} Normal 0.9-2.4 [facility] Comment on above: Performed By: #### L 501.2300, L100.0100, L500.4050 ####[facility] [address] [place], [address] ALK PHOS 55 U/L Normal 35-104 [facility] Comment on above: Performed By: #### L 501.2300, L100.0100, L500.4050 ####[facility] [address] [place], [address] ALT [Catalytic activity/Vol] 6 U/L Normal <=34 [facility] Comment on above: Performed By: #### L 501.2300, L100.0100, L500.4050 ####[facility] [address] [place], [address] AST [Catalytic activity/Vol] 20 U/L Normal <=31 [facility] Comment on above: Performed By: #### L 501.2300, L100.0100, L500.4050 ####[facility] [address] [place], [address] Bilirubin [Mass/Vol] 0.30 mg/dL Normal 0.00-1.30 [facility] Comment on above: Performed By: #### L 501.2300, L100.0100, L500.4050 ####[facility] [address] [place], [address] BUN/CRE 20.8 RATIO High 10-20 [facility] Comment on above: Performed By: #### L 501.2300, L100.0100, L500.4050 ####[facility] [address] [place], [address] Calcium [Mass/Vol] 9.2 mg/dL Normal 7.6-11.0 [facility] Comment on above: Performed By: #### L 501.2300, L100.0100, L500.4050 ####[facility] [address] [place], [address] Chloride [Moles/Vol] 105 mmol/L Normal 98-108 [facility] Comment on above: Performed By: #### L 501.2300, L100.0100, L500.4050 ####[facility] [address] [place], [address] CO2 [Moles/Vol] 26.3 mmol/L Normal 21.0-32.0 [facility] Comment on above: Performed By: #### L 501.2300, L100.0100, L500.4050 ####[facility] [address] [place], [address] Creatinine [Mass/Vol] 0.92 mg/dL Normal 0.70-1.20 [facility] Comment on above: Performed By: #### L 501.2300, L100.0100, L500.4050 ####[facility] [address] [place], [address] ECRCL 41.90 ml/min Low 50-250 [facility] Comment on above: Performed By: #### L 501.2300, L100.0100, L500.4050 ####[facility] [address] [place], [address] GAP 8 Normal 5-15 [facility] Comment on above: Performed By: #### L 501.2300, L100.0100, L500.4050 ####[facility] [address] [place], [address] GFR/1.73 sq M.predicted among non-blacks MDRD (S/P/Bld) [Vol rate/Area] 62 mL/min/{1.73_m2} Normal >60 [facility] Comment on above: Result Comment: mL/m in/1.73m2 CKD-EPI Creatinine Equation (2020) Performed By: #### L 501.2300, L100.0100, L500.4050 ####[facility] [address] [place], [address] Globulin (S) [Mass/Vol] 2.6 g/dL Normal 2.2-4.2 [facility] Comment on above: Performed By: #### L 501.2300, L100.0100, L500.4050 ####[facility] [address] [place], [address] Glucose [Mass/Vol] 98 mg/dL Normal 70-99 [facility] Comment on above: Performed By: #### L 501.2300, L100.0100, L500.4050 ####[facility] [address] [place], [address] Potassium [Moles/Vol] 4.3 mmol/L Normal 3.3-5.1 [facility] Comment on above: Performed By: #### L 501.2300, L100.0100, L500.4050 ####[facility] [address] [place], [address] Sodium [Moles/Vol] 140 mmol/L Normal 133-145 [facility] Comment on above: Performed By: #### L 501.2300, L100.0100, L500.4050 ####[facility] [address] [place], [address] T PROT 6.8 g/dL Normal 5.9-8.4 [facility] Comment on above: Performed By: #### L 501.2300, L100.0100, L500.4050 ####[facility] [address] [place], [address] Urea nitrogen [Mass/Vol] 19 mg/dL Normal 4-19 [facility] Comment on above: Performed By: #### L 501.2300, L100.0100, L500.4050 ####[facility] [address] [place], [address] Eosinophil percentageOrdered By: Cecilia Campbell on 01-28-2025 Eosinophils/100 WBC (Bld) 0.9 % 0-5 [facility] Erythrocyte distribution wid th ratioOrdered By: Cecilia Campbell on 01-28-2025 Erythrocyte distribution width (RBC) [Ratio] 13.4 % 11.6-14.6 [facility] Erythrocyte distribution wid th standard deviationOrdered By: Cecilia Campbell on 01-28-2025 Erythrocyte distribution width (RBC) [Ratio] 49.8 fl High 35.1-43.9 [facility] Glomerular filtration rate ( GFR) estimation/1.73 sq m using serum, plasma, or whole bOrdered By: Cecilia Campbell on 01-28-2025 GFR/1.73 sq M.predicted among non-blacks MDRD (S/P/Bld) [Vol rate/Area] 62 mL/min/{1.73_m2} >60 [facility] Comment on above: mL/min/1.73m2 CKD-EP I Creatinine Equation (2020) Hematocrit Auto (Bld) [Volum e fraction]Ordered By: Cecilia Campbell on 01-28-2025 Hematocrit (Bld) [Volume fraction] 36.3 % Low 37-47 [facility] Hemoglobin measurementOrdere d By: Cecilia Campbell on 01-28-2025 Hemoglobin (Bld) [Mass/Vol] 11.5 g/dL Low 12.0-15.0 [facility] Immature granulocytes/100 WB C Auto (Bld)Ordered By: Cecilia Campbell 01-28-2025 Immature granulocytes/100 WBC (Bld) 0.200 % 0.0-0.9 [facility] Comment on above: IG% - Immature Granu locytes (promyelocytes, myelocytes and metamyelocytes) > 1% indicates that a LEFT SHIFT is Present. Laboratory - Chemistry and C hemistry - challengeOrdered By: Cecilia Campbell on 01-28-2025 AST [Catalytic activity/Vol] 20 U/L <32 [facility] MCV (mean corpuscular volume ) determinationOrdered By: Cecilia Campbell 01-28-2025 MCV (RBC) [Entitic vol] 100.0 fL High 81-99 [facility] Mean corpuscular hemoglobin (MCH) determinationOrdered By: Cecilia Campbell 01-28-2025 MCH (RBC) [Entitic mass] 31.7 pg 27.0-32.0 [facility] Mean corpuscular hemoglobin concentration (MCHC) determinationOrdered By: Cecilia Campbell on 01-28-2025 MCHC (RBC) [Mass/Vol] 31.7 g/dL Low 32-36 [facility] Mean platelet volume determi nationOrdered By: Cecilia Campbell on 01-28-2025 Platelet mean volume (Bld) [Entitic vol] 12.0 fL 6.2-12.0 [facility] Monocyte percentageOrdered B y: Cecilia Campbell on 01-28-2025 Monocytes/100 WBC (Bld) 6.3 % 0-10 [facility] Neutrophil percentageOrdered By: Cecilia Shannan on 01-28-2025 Neutrophils/100 WBC (Bld) 68.2 % 47-70 [facility] Nucleated red blood cell per centageOrdered By: [facility] on 01-28-2025 Nucleated RBC/100 WBC (Bld) [Ratio] 0 % 0-5 [facility] Oncology Visit Reporton Oncology Visit Report [facility] [place] [facility] [address] [place] [address] OFFICE VISIT Date of Service: 01/28/25 1308 MR#: [id number] Acct: [id number] Name: ESTRADA MURO Rep #: [id number] : 1940 From: Laurence Mayer MD Age/Sex: 84/F Location: [facility] Status: Signed HPI Subjective Date of [...] present Additional Findings: None Breast Marker Study: [id number] ER: >95% VA: 0% Her2: 2+ (equivocal) Ki67:5% Negative for overexpression of KUP5igi by FISH April 04, 2024 left breast [...] Ancillary studies: Previously performed on same tumor ([id number] / [id number]). ER: Positive, >95% VA: Negative, 0%, Her2 annie: 2+ by immunohistochemistry and not amplified (1.1) by in situ hybridization Ki67: 5% Clinical history: Mass of breast PATHOLOGIC STAGE: T1c Nx Mx Treatment summary and response: March 2024 left breast lumpectomy. April 2024 anastrozole [facility] Medical History Screening for breast cancer [...] Respiratory/Chest Respirat (more content not included)... Normal [facility] Phosphoruson 01-28-2025 Phosphate [Mass/Vol] 2.8 mg/dL Normal 2.7-4.5 [facility] Comment on above: Performed By: #### L 501.2300, L100.0100, L500.4050 ####[facility] [address] [place], [address] Platelet countOrdered By: Cam Campbell on 01-28-2025 Platelets (Bld) [#/Vol] 162 10*3/uL 150-450 [facility] Potassium measurement (mass/ volume)Ordered By: Cecilia Campbell on 01-28-2025 Potassium (Unsp spec) [Mass/Vol] 4.3 mmol/L 3.3-5.1 [facility] RBC Auto (Bld) [#/Vol]Ordere d By: Cecilia Campbell on 07-07-2025 RBC (Bld) [#/Vol] 3.63 10*6/uL Low 4.2-5.4 [facility] Serum creatinine measurement (mass/volume)Ordered By: Cecilia Campbell on 01-28-2025 Creatinine [Mass/Vol] 0.92 mg/dL 0.70-1.20 [facility] Serum globulin measurementOr dered By: Cecilia Campbell on 01-28-2025 Globulin (S) [Mass/Vol] 2.6 g/dL 2.2-4.2 [facility] Serum glucose measurement (m ass/volume)Ordered By: Cecilia Campbell on 01-28-2025 Glucose [Mass/Vol] 98 mg/dL 70-99 [facility] Serum or plasma alanine hines otransferase (ALT) measurementOrdered By: Cecilia Campbell on 01-28-2025 ALT [Catalytic activity/Vol] 6 U/L <35 [facility] Serum or plasma albumin enrrique urement (mass/volume)Ordered By: Cecilia Campbell on 01-28-2025 Albumin [Mass/Vol] 4.2 g/dL 3.4-4.8 [facility] Serum or plasma albumin/glob ulin mass ratioOrdered By: Cecilia Campbell on 01-28-2025 Albumin/Globulin [Mass ratio] 1.7 {ratio} 0.9-2.4 [facility] Serum or plasma alkaline skyler sphatase measurementOrdered By: Cecilia Campbell on 01-28-2025 ALP [Catalytic activity/Vol] 55 U/L 35-104 [facility] Serum or plasma calcium enrrique urement (mass/volume)Ordered By: Cecilia Campbell on 01-28-2025 Calcium [Mass/Vol] 9.2 mg/dL 7.6-11.0 [facility] Serum or plasma urea nitroge n measurement (mass/volume)Ordered By: Cecilia Campbell 01-28-2025 Urea nitrogen [Mass/Vol] 19 mg/dL 4-19 [facility] Sodium levelOrdered By: Cecilia Campbell on 01-28-2025 Sodium [Moles/Vol] 140 mmol/L 133-145 [facility] Total proteinOrdered By: Naima Campbell on 01-28-2025 Protein [Mass/Vol] 6.8 g/dL 5.9-8.4 [facility] White blood cell (WBC) count Ordered By: Cecilia Campbell on 01-28-2025 WBC (Bld) [#/Vol] 6.3 10*3/uL 4.4-11.0 [facility] Emergency Department Summary on 01-20-2025 Emergency Department Summary [facility] Medical Records Department [address] [place] [address] Emergency Department Summary 01/20/25 MR#: [id number] Acct: [id number] Name: ESTRADA MURO Rep #: [id number] : 1940 84 From: Antonella AGUILAR PCP: [...] ambulate. She is not on blood thinners. [facility] Medical History Screening for breast cancer [...] by famil (more content not included)... Normal [facility] Oncology Visit Reporton Oncology Visit Report [facility] [place] [facility] [address] [place] [address] OFFICE VISIT Date of Service: 10/29/24 1322 MR#: [id number] Acct: [id number] Name: ESTRADA MURO Bhanu Rep #: [id number] : 1940 From: Cecilia Campbell NP SAWMILLING OPERATOR -C Age/Sex: 84/F Location: [facility] Status: Signed HPI Subjective Date of [...] present Additional Findings: None Breast Marker Study: [id number] ER: >95% VA: 0% Her2: 2+ (equivocal) Ki67:5% Negative for overexpression of GKI6rst by FISH April 04, 2024 left breast [...] Ancillary studies: Previously performed on same tumor ([id number] / [id number]). ER: Positive, >95% VA: Negative, 0%, Her2 annie: 2+ by immunohistochemistry [...] breast, muscle ache/stiffness, urinary complaints, jaw pain. [facility] Medical History Osteopenia Invasive ductal carcinoma [...] 19.7 20.0 (more content not included)... Normal [facility] CBC W/Diff, Automatedon 01-0 8 Absolute Lymph 1.55 X10 3/uL Normal 0.83-4.51 [facility] Comment on above: Performed By: #### L 100.0100, L500.4050, L501.2300, L506.1000 ####[facility] [address] [place], [place], [address] Absolute Neut 4.6 X10 3/uL Normal 2.0-7.7 [facility] Comment on above: Performed By: #### L 100.0100, L500.4050, L501.2300, L506.1000 ####[facility] [address] [place], [address] Basophils/100 WBC (Bld) 0.7 % Normal 0-1 [facility] Comment on above: Performed By: #### L 100.0100, L500.4050, L501.2300, L506.1000 ####[facility] [address] [place], [address] Eosinophils/100 WBC (Bld) 0.9 % Normal 0-5 [facility] Comment on above: Performed By: #### L 100.0100, L500.4050, L501.2300, L506.1000 ####[facility] [address] [place], [address] Erythrocyte distribution width (RBC) [Ratio] 13.5 % Normal 11.6-14.6 [facility] Comment on above: Performed By: #### L 100.0100, L500.4050, L501.2300, L506.1000 ####[facility] [address] [place], [address] Hematocrit (Bld) [Volume fraction] 35.1 % Low 37-47 [facility] Comment on above: Performed By: #### L 100.0100, L500.4050, L501.2300, L506.1000 ####[facility] [address] [place], [address] Hemoglobin (Bld) [Mass/Vol] 11.7 g/dL Low 12.0-15.0 [facility] Comment on above: Performed By: #### L 100.0100, L500.4050, L501.2300, L506.1000 ####[facility] [address] [place], [address] IG% 0.400 Normal 0.0-0.9 [facility] Comment on above: Result Comment: IG% - Immature Granulocytes (promyelocytes, myelocytes and metamyelocytes) > 1% indicates that a LEFT SHIFT is Present. Performed By: #### L 100.0100, L500.4050, L501.2300, L506.1000 ####[facility] [address] [place], [address] Lymphocytes/100 WBC (Bld) 23.0 % Normal 19-41 [facility] Comment on above: Performed By: #### L 100.0100, L500.4050, L501.2300, L506.1000 ####[facility] [address] [place], [address] MCH (RBC) [Entitic mass] 31.9 pg Normal 27.0-32.0 [facility] Comment on above: Performed By: #### L 100.0100, L500.4050, L501.2300, L506.1000 ####[facility] [address] [place], [address] MCHC (RBC) [Mass/Vol] 33.3 g/dL Normal 32-36 [facility] Comment on above: Performed By: #### L 100.0100, L500.4050, L501.2300, L506.1000 ####[facility] [address] [place], [address] MCV (RBC) [Entitic vol] 95.6 fL Normal 81-99 [facility] Comment on above: Performed By: #### L 100.0100, L500.4050, L501.2300, L506.1000 ####[facility] [address] [place], [address] Monocytes/100 WBC (Bld) 6.4 % Normal 0-10 [facility] Comment on above: Performed By: #### L 100.0100, L500.4050, L501.2300, L506.1000 ####[facility] [address] [place], [address] Neutrophils/100 WBC (Bld) 68.6 % Normal 47-70 [facility] Comment on above: Performed By: #### L 100.0100, L500.4050, L501.2300, L506.1000 ####[facility] [address] [place], [address] Nucleated RBC (Bld) [#/Vol] 0 10*3/uL Normal 0-5 [facility] Comment on above: Performed By: #### L 100.0100, L500.4050, L501.2300, L506.1000 ####[facility] [address] [place], [address] Platelet mean volume (Bld) [Entitic vol] 11.6 fL Normal 6.2-12.0 [facility] Comment on above: Performed By: #### L 100.0100, L500.4050, L501.2300, L506.1000 ####[facility] [address] [place], [address] Platelets (Bld) [#/Vol] 188 10*3/uL Normal 150-450 [facility] Comment on above: Performed By: #### L 100.0100, L500.4050, L501.2300, L506.1000 ####[facility] [address] [place], [address] RBC (Bld) [#/Vol] 3.67 10*6/uL Low 4.2-5.4 [facility] Comment on above: Performed By: #### L 100.0100, L500.4050, L501.2300, L506.1000 ####[facility] [address] [place], [address] RDW SD 47.7 fl High 35.1-43.9 [facility] Comment on above: Performed By: #### L 100.0100, L500.4050, L501.2300, L506.1000 ####[facility] [address] [place], [address] WBC (Bld) [#/Vol] 6.7 10*3/uL Normal 4.4-11.0 [facility] Comment on above: Performed By: #### L 100.0100, L500.4050, L501.2300, L506.1000 ####[facility] [address] [place], [address] Comprehensive Metabolic Prof ilon 08-01-2024 Albumin [Mass/Vol] 3.7 g/dL Normal 3.2-5.0 [facility] Comment on above: Performed By: #### L 100.0100, L500.4050, L501.2300, L506.1000 ####[facility] [address] [place], [address] Albumin/Globulin [Mass ratio] 1.1 {ratio} Normal 0.9-2.4 [facility] Comment on above: Performed By: #### L 100.0100, L500.4050, L501.2300, L506.1000 ####[facility] [address] [place], [address] ALK P 70 U/L Normal 45-117 [facility] Comment on above: Performed By: #### L 100.0100, L500.4050, L501.2300, L506.1000 ####[facility] [address] [place], [address] ALT [Catalytic activity/Vol] 13 U/L Normal 13-56 [facility] Comment on above: Performed By: #### L 100.0100, L500.4050, L501.2300, L506.1000 ####[facility] [address] [place], [address] AST [Catalytic activity/Vol] 16 U/L Normal 15-37 [facility] Comment on above: Performed By: #### L 100.0100, L500.4050, L501.2300, L506.1000 ####[facility] [address] [place], [address] Bilirubin [Mass/Vol] 0.30 mg/dL Normal 0.20-1.00 [facility] Comment on above: Result Comment: For patients on eltrombopag therapy, use of Dimension [place] TBIL is not recommended. Performed By: #### L 100.0100, L500.4050, L501.2300, L506.1000 ####[facility] [address] [place], [address] BUN/CRE 25.7 RATIO High 10-20 [facility] Comment on above: Performed By: #### L 100.0100, L500.4050, L501.2300, L506.1000 ####[facility] [address] [place], [address] CA,Total 9.1 mg/dL Normal 8.5-10.1 [facility] Comment on above: Performed By: #### L 100.0100, L500.4050, L501.2300, L506.1000 ####[facility] [address] [place], [address] Chloride [Moles/Vol] 103 mmol/L Normal 98-107 [facility] Comment on above: Performed By: #### L 100.0100, L500.4050, L501.2300, L506.1000 ####[facility] [address] [place], [address] CO2 [Moles/Vol] 31.0 mmol/L Normal 21.0-32.0 [facility] Comment on above: Performed By: #### L 100.0100, L500.4050, L501.2300, L506.1000 ####[facility] [address] [place], [address] Creatinine [Mass/Vol] 0.97 mg/dL Normal 0.55-1.02 [facility] Comment on above: Result Comment: The validity of the calculated GFR GFRAA in patients over 70 years has not been determined. Clinical correlation is essential. Performed By: #### L 100.0100, L500.4050, L501.2300, L506.1000 ####[facility] [address] [place], [address] EST GFR - AA 70 mL/min Normal >60 [facility] Comment on above: Result Comment: Afri can [place] GFR Calc Performed By: #### L 100.0100, L500.4050, L501.2300, L506.1000 ####[facility] [address] [place], [address] GAP 6 Normal 5-15 [facility] Comment on above: Performed By: #### L 100.0100, L500.4050, L501.2300, L506.1000 ####[facility] [address] [place], [address] GFR/1.73 sq M.predicted among non-blacks MDRD (S/P/Bld) [Vol rate/Area] 58 mL/min/{1.73_m2} Low >60 [facility] Comment on above: Result Comment: Non- GFR Calc Performed By: #### L 100.0100, L500.4050, L501.2300, L506.1000 ####[facility] [address] [place], [address] Globulin (S) [Mass/Vol] 3.4 g/dL Normal 2.2-4.2 [facility] Comment on above: Performed By: #### L 100.0100, L500.4050, L501.2300, L506.1000 ####[facility] [address] [place], [address] Glucose [Mass/Vol] 123 mg/dL High 74-106 [facility] Comment on above: Result Comment: Fast ing Glucose result from 100 to 125 mg/dL suggests IMPAIRED HOMEOSTASIS per A.D.A. criteria. Performed By: #### L 100.0100, L500.4050, L501.2300, L506.1000 ####[facility] [address] [place], [address] Potassium [Moles/Vol] 3.7 mmol/L Normal 3.5-5.1 [facility] Comment on above: Performed By: #### L 100.0100, L500.4050, L501.2300, L506.1000 ####[facility] [address] [place], [address] Sodium [Moles/Vol] 140 mmol/L Normal 136-145 [facility] Comment on above: Performed By: #### L 100.0100, L500.4050, L501.2300, L506.1000 ####[facility] [address] [place], [address] T PROT 7.1 g/dL Normal 6.4-8.2 [facility] Comment on above: Performed By: #### L 100.0100, L500.4050, L501.2300, L506.1000 ####[facility] [address] [place], [address] Urea nitrogen [Mass/Vol] 25 mg/dL High 7-18 [facility] Comment on above: Performed By: #### L 100.0100, L500.4050, L501.2300, L506.1000 ####[facility] [address] [place], [address] Oncology Visit Reporton Oncology Visit Report [facility] [address] 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 Status: Signed HPI Subjective Date of [...] present Additional Findings: None Breast Marker Study: [id number] ER: >95% VA: 0% Her2: 2+ (equivocal) Ki67:5% Negative for overexpression of TEF0ruu by FISH April 04, 2024 left breast [...] muscle: No skeletal muscle present Histologic Grade (Winfield grade): Glandular/tubular differentiation score: 2 Nuclear pleomorphism [...] Ancillary studies: Previously performed on same tumor ([id number] / MY56-974). ER: Positive, >95% VA: Negative, 0%, Her2 annie: 2+ by immunohistochemistry [...] breast, muscle ache/stiffness, urinary complaints, jaw pain. [facility] Medical History Osteopenia Invasive ductal carcinoma [...] 19.2 19 (more content not included)... Normal [facility] Phosphoruson 08-01-2024 Phosphate [Mass/Vol] 3.4 mg/dL Normal 2.5-4.9 [facility] Comment on above: Performed By: #### L 100.0100, L500.4050, L501.2300, L506.1000 ####[facility] [address] [place], [address] Vitamin D,25 Hydroxyon 08-01 Vitamin D 25-OH 34.3 ng/mL Normal [facility] Comment on above: Result Comment: Analisa min D 25(OH) Status Range Deficiency <20 ng/mL (50nmol/L) Insufficiency 20 - 30 ng/mL (50 - 75 nmol/L) Sufficiency 30 - 100 ng/mL (75 - 250 nmol/L) Toxicity >100 ng/mL (>250 nmol/L) Performed By: #### L 100.0100, L500.4050, L501.2300, L506.1000 ####[facility] [address] [place], [address] Oncology Visit Reporton Oncology Visit Report [facility] [address] [place] [address] OFFICE VISIT Date of Service: 04/30/24 1445 MR#: [id number] Acct: [id number] Name: ESTRADA MURO Rep #: [id number] : 1940 From: Laurence Myaer MD Age/Sex: 83/F Location: [facility] Status: Signed HPI Subjective Date of Service [...] present Additional Findings: None Breast Marker Study: [id number] ER: >95% VA: 0% Her2: 2+ (equivocal) Ki67:5% Negative for overexpression of QUP1btz by FISH April 04, 2024 left breast [...] Ancillary studies: Previously performed on same tumor ([id number] / [id number]). ER: Positive, >95% VA: Negative, 0%, Her2 annie: 2+ by immunohistochemistry and not amplified (1.1) by in situ hybridization Ki67: 5% Clinical history: Mass of breast PATHOLOGIC STAGE: T1c Nx Mx Treatment summary and response: March 2024 left breast lumpectomy. [facility] Medical History Wears hearing aid Wears [...] Medications ???Medicati (more content not included)... Normal [facility] Surgery Visit Reporton 04-30 Surgery Visit Report [facility] [address] 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 Miguel Mariee MD [facility] Surgery Visit Reporton 04-16 Surgery Visit Report [facility] [address] [place] [address]. [address] [place] [address] OFFICE VISIT Date of Service: 04/16/24 MR#: [id number] Acct: [id number] Name: ESTRADA MURO Rep #: [id number] : 1940 Provider: Dr. 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 Antonella Loyola, DO Normal [facility] Discharge Instructionon 03-25 Discharge Instruction [facility] Medical Records Department [address] [place] [address] Instructions for Home/Discharge Instructions 04/04/24 1214 MR#: [id number] Acct: [id number] Name: ESTRADA MURO Rep #: [id number] : 1940 83 From: Miguel Mariee MD PCP: Dr. Antonella Loyola, DO Status:DEP [facility] [place]charge Instructions Diet Discharge Diet: No restrictions [...] Care Provider: Antonella Loyola Instructions Print Language: Macedonian Discharge Orders/Prescriptions Prescriptions: Continued levothyroxine [Synthroid] 88 [...] CC: Dr. Antonella Loyola DO Signed Normal [facility] MR/POSTOP.[facility] 04-04-2024 [facility] Department [address] [place] [address] Anesthesia Postop Eval I 04/04/24 1145 MR#: [id number] Acct: [id number] Name: ESTRADA MURO Bhanu Rep #: [id number] : 1940 83 From: Edgar Tovar MD PCP: Dr. Antonella Loyola, DO Status:REG SDC Y Race: C Location: [place] [address] Anesthesia: Postop Eval I Current Vital Signs [...] MD Cosigner Signature: Date CC: Signed Normal [facility] MR/XKMXWBTD9le 04-04-2024 [facility] Medical Records Department [address] [place] [address] Anesthesia Postop Eval II 04/04/24 1239 MR#: [id number] Acct: [id number] Name: ESTRADA MURO Rep #: [id number] : 1940 83 From: Huey Damico MD PCP: Dr. Antonella Loyola, DO Status:REG SDC Y Race: C Location: [place] [address] Anesthesia Postop Eval I Sum Postop Eval [...] Huey Guillaume Signature: Date CC: Signed Normal [facility] Operative Reporton 4 Operative Report [facility] Medical Records Department [address] [place] [address] Operative Report 04/04/24 1211 MR#: [id number] Acct: [id number] Name: ESTRADA MURO Rep #: [id number] : 1940 83 From: Miguel Mariee MD PCP: Dr. Antonella Loyola, DO Status:[facility] Location: [place] [address] Report of Operation Date of Procedure: 04/04/24 Pre-Operative Diagnosis: Left breast cancer Post-Operative Diagnosis: Same Surgery/Procedure Performed:: Left breast lumpectomy Description of Surgical Findings:: ??? Firm tissue along the deep margin but remaining cavity demonstrated no palpable irregularities ??? Specimen oriented and marked with suture short superior long lateral Surgeon: Miguel Mariee autos disassembler: Diamond Macias Type of Anesthesia: MAC/Supplemental/Local Anesthesiologist: [...] Used: None Complications None Procedures Integumentary 16xxx-193xx: 92898 Partial mastectomy 04/04/24 1322 Cosigner Signature (if applicable): CC: Dr. Antonella Loyola DO; Dr. Miguel Mariee MD Signed Normal [facility] Surgery Specimen Level Von 0 04-04-2024 Surgery Specimen Level V Patient Age/Sex Location Account Attending Physician ESTRADA MURO 83/F [facility] [id number] [place]. Miguel Mariee MD Specimen: [id number] Received: 04/05/24 Status: YFN [place] Num: [id number] Spec Type: BREAST Subm Dr: Dr. Miguel [...] Location Account Attending Physician ESTRADA MURO 83/F [facility] [id number] [place]. Miguel Mariee MD Additional pathologic findings: Changes of previous biopsy, mild fibrocystic change and associated microcalcifications Ancillary studies: Previously performed on same tumor ([id number] / [id number]). ER: Positive, >95% VA: Negative, 0%, Her2 annie: 2+ by immunohistochemistry and not amplified (1.1) by in situ hybridization Ki67: 5% Clinical history: Mass of breast PATHOLOGIC STAGE: T1c Nx Mx The above summary is in compliance with College of [place] Pathology (CAP) Cancer Protocols Checklist and [place] Joint Committee on Cancer (AJCC), Staging Manual, [...] cassettes after additional fixation. AM/mr 04/05/2024 TC:0 CPT:73588 Patient Age/Sex Location Account Attending Physician ESTRADA MURO 83/F [facility] [id number] Dr. Miguel Mariee MD Signed (signature on file) Dr. Levi Rose, 04/09/24 1256 Normal [facility] Comment on above: Performed By: #### P SUV #### [facility] [address] [facility] [place], [place], [address] Surgery Visit Reporton 03-29 Surgery Visit Report [facility] [address] [facility] [facility] [place] [address] OFFICE VISIT Date of Service: 03/29/24 MR#: [id number] Acct: [id number] Name: ESTRADA MURO Rep #: [id number] : 1940 Provider: Dr. Miguel chatterjee MD Age/Sex: 83/F Location: [facility] Status: Signed Intake Vital Signs 03/14/24 [...] stent, palpitati (more content not included)... Normal [facility] Oncology Visit Reporton 02-23 Oncology Visit Report [facility] [address] [place] [address] OFFICE VISIT Date of Service: 03/14/24 1520 MR#: [id number] Acct: [id number] Name: BHASKARESTRADA Rep #: [id number] : 1940 From: Laurence Mayer MD Age/Sex: 83/F Location: [facility] Status: Signed HPI Subjective Date of [...] present Additional Findings: None Breast Marker Study: [id number] ER: >95% VA: 0% Her2: 2+ (equivocal) Ki67:5% Negative for overexpression of JBR9lek by FISH PFSH Medical History Osteoporosis Anxiety [...] History sprtinole,extend (more content not included)... Normal [facility] ER (initial)on 02-29-2024 ER (initial) --- Patient Age/Sex Location Account Attending Physician ESTRADA MURO 83/F [facility] [id number] Dr. Miguel Mariee MD Specimen: [id number] Received: 03/02/24 Status: YFN [facility] Num: [id number] Spec Type: IMMUNO Subm Dr: Dr. Miguel Mariee MD THIS IS A CORRECTED REPORT 03/06/24-1213 PHYSICIAN INSTITUTION [place] [address] SPECIMEN INFORMATION: Tissue Source: Left breast biopsy Clinical Info: Abnormal mammogram Specimen Number: [id number] CPT code: 23411,75187v0,05657x1 METHODOLOGY: Deparaffinized sections of prefer/formalin-fixed tissue or PAP/DQ stained slides are incubated with monoclonal/polyclonal antibodies/oligonucleot jignesh probes. Localization is made via biotin free immunoperoxidase method. Appropriate controls are performed and reacted as expected. Results on target cell population are indicated in the following table: RESULTS: ANTIBODY / CLONE RESULT P53 (DO-7) positive, wild type pattern Ki-67 (30-9) positive, 5% CK8 (80zreyV13) positive CK5-6 (D5 1684) negative Calponin-1 (NW391R) negative P40 (BC28) negative E-Cad (ECH-6) positive MOC-31 (4561) negative MORPHOMETRIC ANALYSIS ER (clone 6F11) >95, strong intensity VA (clone 16/1E2) 0% Her-2Neu (clone CB11) 2+ The test for HER 2 is performed on formalin-fixed paraffin embedded tissue using the CB11 mouse monoclonal antibody (Gorsh). A 3+ staining pattern is interpreted as positive and is defined as a strong membranous staining involving the entire cell membrane in over 30% of invasive tumor cells. A similar weak staining pattern (2+) involving 10% of the tumor cells is interpreted as equivocal. HER 2 follow-up testing by FISH is recommended for all equivocal results. Reference: [place] Society of Clinical Oncology and the College of [place] Pathology (J. Clin. Oncol. 23: 118-145, 2007). Fixative Used: Formalin; Duration of Fixation: 28 Hours.; Sample Adequate: Yes Patient Age/Sex Location Account Attending Physician ESTRADA MURO 83/F [facility] [id number] Dr. 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 Positive for estrogen receptors (favorable prognostic indicator). Negative for progesterone receptors (favorable prognostic indicator). Equivocal for overexpression of EAC7tzq. 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 Positive for estrogen receptors (favorable prognostic indicator). Negative for progesterone receptors (favorable prognostic indicator). Negative for overexpression of BMO6dbg. / 03/06/2024 IN SITU HYBRIDIZATION (ROSINA) FOR [...] Factor Receptor 2 Testing in Breast Cancer: [place] Society of Clinical Oncology / College of [place] Pathologists Clinical Practice Guideline Update. J Clin Oncol 31:8304-2146, 2013. Patient Age/Sex Location Account Attending Physician ESTRADA MURO 83/F [facility] [id number] Dr. Miguel Mariee MD --- (more content not included)... Normal [facility] Comment on above: Performed By: #### P ER #### [facility] Laboratory [facility] [address] [place], [place], [id number] Surgery Specimen Level Genet 02-29-2024 Surgery Specimen Level IV Patient Age/Sex Location Account Attending Physician ESTRADA MURO 83/F [facility] [id number] Dr. Miguel Mariee MD Specimen: [id number] Received: 02/29/24 Status: YFN [place] Num: [id number] Spec Type: BREAST BX Subm Dr: Dr. [...] present Additional Findings: None Breast Marker Study: [id number] ER: >95% VA: 0% Her2: 2+ (equivocal) Ki67:5% The above summary is in compliance with College of [place] Pathology (CAP) Cancer Protocols Checklist and [place] Joint Committee on Cancer (AJCC), Staging Manual, 8th Ed. Case has been reviewed in consultation with Dr. Carrillo who concurs with the above diagnosis. IDC:SJ Patient Age/Sex Location Account Attending Physician ESTRADA MURO 83/F [facility] [id number] Dr. Miguel Mariee MD MICROSCOPIC DESCRIPTION Slides are reviewed. GROSS DESCRIPTION Received in fixative is one container labeled with the patient's name and designated Left breast tissue. The specimen consists of multiple elongated fragments of rosenthal-yellow fibroadipose tissue measuring in aggregate 1.5 x 0.5 x 0.1cm. The entire specimen is submitted in one cassette. JORGE/ 03/01/2024 TC:0 CPT:94323 Patient Age/Sex Location Account Attending Physician BHASKARESTRADA Wolfe Bhanu 83/F [facility] [id number] Dr. Miguel Mariee MD Signed (signature on file) Dr. Levi Rose DO 03/05/24 1212 Normal [facility] Comment on above: Performed By: #### P SUIV ####[facility] [address] [place], [address] Surgery Visit Reporton 02-28 Surgery Visit Report [facility] [address] [place] [address] OFFICE VISIT Date of Service: 02/29/24 MR#: [id number] Acct: [id number] Name: ESTRADA MURO Rep #: [id number] [...] nipple. Office (more content not included)... Normal [facility] Breast Limited Unilateralon 02-24-2024 Breast Limited Unilateral [facility] Imaging Services [address] [place] [address] Breast Limited Unilateral MR#: [id number] Acct: [id number] Name: ESTRADA MURO Rep #: [id number] : 1940 F 83 From: Yang fuchs MD PCP: Dr. Antonella Loyola, DO Status: REG CLI Study: Breast Limited Unilateral Date of Exam: Exam# [id number] Ordering [place]: [place] [id number] STUDY: ULTRASOUND BREAST - LEFT REASON FOR [...] Antonella Loyola DO; Dr. Miguel Mariee MD Diagnostic Technologist: Signed Normal [facility] Absolute lymphocyte countOrd ered By: Al Bassett on 07-04-2023 Lymphocytes Auto (Unsp spec) [#/Vol] 0.58 10*3/uL 0.83-4.51 [facility] Basophil percentageOrdered B y: Alangelia Singletaryo on 07-04-2023 Basophils/100 WBC (Bld) 0.5 % 0-1 [facility] Chloride [Moles/Vol] 103 mmol/L 98-107 [facility] Eosinophils/100 WBC (Bld) 0.2 % 0-5 [facility] Glucose [Mass/Vol] 124 mg/dL 74-106 [facility] Comment on above: Fasting Glucose resu lt from 100 to 125 mg/dL suggests IMPAIRED HOMEOSTASIS per A.D.A. criteria. Neutrophils (Bld) [#/Vol] 7.4 10*3/uL 2.0-7.7 [facility] Neutrophils/100 WBC (Bld) 84.9 % 47-70 [facility] Potassium [Moles/Vol] 3.5 mmol/L 3.5-5.1 [facility] Sodium [Moles/Vol] 137 mmol/L 136-145 [facility] WBC (Bld) [#/Vol] 8.7 10*3/uL 4.4-11.0 [facility] Blood erythrocytes count (nu mber/volume)Ordered By: Alangelia Bassett on 07-04-2023 RBC (Bld) [#/Vol] 3.81 10*6/uL 4.2-5.4 [facility] Blood hemoglobin measurement (mass/volume)Ordered By: Alangelia Bassett on 07-04-2023 Hemoglobin (Bld) [Mass/Vol] 12.0 g/dL 12.0-15.0 [facility] Blood lymphocytes/100 leukoc ytesOrdered By: Alangelia Bassett on 07-04-2023 Lymphocytes/100 WBC (Bld) 6.7 % 19-41 [facility] Blood manual differential co mment interpretation (narrative result)Ordered By: Alangelia Bassett on 07-04-2023 Manual differential comment Jason (Bld) [Interp] SCANNED [facility] Blood monocytes/100 leukocyt esOrdered By: Al Bassett on 07-04-2023 Monocytes/100 WBC (Bld) 7.2 % 0-10 [facility] Blood platelet mean volumeOr dered By: Al Bassett on 07-04-2023 Platelet mean volume (Bld) [Entitic vol] 12.4 fL 6.2-12.0 [facility] Determination of erythrocyte mean corpuscular volume (MCV)Ordered By: Al Bassett on 07-04-2023 MCV (RBC) [Entitic vol] 98.7 fL 81-99 [facility] Erythrocyte sedimentation ra teOrdered By: Alangelia Bassett on 07-04-2023 ESR (Bld) [Velocity] 19 mm/h 0-30 [facility] Hematocrit Auto (Bld) [Volum e fraction]Ordered By: Al Bassett on 07-04-2023 Hematocrit (Bld) [Volume fraction] 37.6 % 37-47 [facility] Laboratory - Chemistry and C hemistry - challengeOrdered By: Alangelia Bassett on 07-04-2023 CO2 [Moles/Vol] 28.0 mmol/L 21.0-32.0 [facility] Urea nitrogen/Creatinine [Mass ratio] 21.5 mg/mg 10-20 [facility] Laboratory - Hematology and Cell countsOrdered By: Alangelia Bassett on 07-04-2023 Erythrocyte distribution width (RBC) [Entitic vol] 49.3 fL 35.1-43.9 [facility] Erythrocyte distribution width (RBC) [Ratio] 13.5 % 11.6-14.6 [facility] Immature granulocytes/100 WBC (Bld) 0.500 % 0.0-0.9 [facility] Comment on above: IG% - Immature Granu locytes (promyelocytes, myelocytes and metamyelocytes) > 1% indicates that a LEFT SHIFT is Present. MCH (RBC) [Entitic mass] 31.5 pg 27.0-32.0 [facility] Nucleated RBC/100 WBC (Bld) [Ratio] 0 % 0-5 [facility] MCHC Auto (RBC) [Mass/Vol]Or dered By: Al Bassett on 07-04-2023 MCHC (RBC) [Mass/Vol] 31.9 g/dL 32-36 [facility] No Panel InformationOrdered By: Al Bassett on 07-04-2023 Estimated Creatinine Clearance Calc 44.19 ml/min [facility] Estimated GFR (MDRD) Amer 79 mL/min >60 [facility] Comment on above: GFR Calc Estimated GFR (MDRD) Non-Af Amer 65 mL/min >60 [facility] Comment on above: Non- GFR Calc Platelets bldOrdered By: Al Bassett on 07-04-2023 Platelets (Bld) [#/Vol] 163 10*3/uL 150-450 [facility] Serum or plasma calcium enrrique urement (mass/volume)Ordered By: Al Bassett on 07-04-2023 Calcium [Mass/Vol] 8.8 mg/dL 8.5-10.1 [facility] Serum or plasma creatinine m easurement (mass/volume)Ordered By: Al Bassett on 07-04-2023 Creatinine [Mass/Vol] 0.88 mg/dL 0.55-1.02 [facility] Comment on above: The validity of the calculated GFR & GFRAA in patients over 70 years has not been determined. Clinical correlation is essential. Serum or plasma urea nitroge n measurement (mass/volume)Ordered By: Al Bassett on 07-04-2023 Urea nitrogen [Mass/Vol] 19 mg/dL 7-18 [facility] Thin prep Papanicolaou smear with manual screeningOrdered By: Al Bassett on 07-04-2023 Thin prep Papanicolaou smear with manual screening 6 5-15 [facility] Absolute lymphocyte countOrd ered By: Antonella Loyola on 01-19-2023 Lymphocytes Auto (Unsp spec) [#/Vol] 1.59 10*3/uL 0.83-4.51 [facility] Basophil percentageOrdered B y: Antonella Loyola on 01-19-2023 Basophils/100 WBC (Bld) 1.1 % 0-1 [facility] Bilirubin [Mass/Vol] 0.30 mg/dL 0.20-1.00 [facility] Comment on above: For patients on eltr ombopag therapy, use of Dimension [place] TBIL is not recommended. Chloride [Moles/Vol] 107 mmol/L 98-107 [facility] Cholesterol [Mass/Vol] 208 mg/dL <200 [facility] Comment on above: <200 mg/dL Desirable 200-240 mg/dL Borderline >240 mg/dL High Risk Eosinophils/100 WBC (Bld) 1.3 % 0-5 [facility] Glucose [Mass/Vol] 79 mg/dL 74-106 [facility] Neutrophils (Bld) [#/Vol] 3.4 10*3/uL 2.0-7.7 [facility] Neutrophils/100 WBC (Bld) 61.4 % 47-70 [facility] Potassium [Moles/Vol] 4.0 mmol/L 3.5-5.1 [facility] Protein [Mass/Vol] 6.8 g/dL 6.4-8.2 [facility] Sodium [Moles/Vol] 139 mmol/L 136-145 [facility] Triglyceride [Mass/Vol] 67 mg/dL <199 [facility] Comment on above: The drugs N-Acetylcy steine and Metamizole may falsely depress this assay.Serum Triglycerides Reference Interval Normal <150 mg/dL Borderline high 150 - 199 mg/dL High 200 - 499 mg/dL Very High > or = 500 mg/dL WBC (Bld) [#/Vol] 5.5 10*3/uL 4.4-11.0 [facility] Blood erythrocytes count (nu mber/volume)Ordered By: Antonella Loyola on 01-19-2023 RBC (Bld) [#/Vol] 3.68 10*6/uL 4.2-5.4 [facility] Blood hemoglobin measurement (mass/volume)Ordered By: Antonella Loyola on 01-19-2023 Hemoglobin (Bld) [Mass/Vol] 11.8 g/dL 12.0-15.0 [facility] Blood lymphocytes/100 leukoc ytesOrdered By: Antonella Loyola on 01-19-2023 Lymphocytes/100 WBC (Bld) 28.8 % 19-41 [facility] Blood monocytes/100 leukocyt esOrdered By: Antonella Loyola on 01-19-2023 Monocytes/100 WBC (Bld) 7.2 % 0-10 [facility] Blood platelet mean volumeOr dered By: Antonella Loyola on 01-19-2023 Platelet mean volume (Bld) [Entitic vol] 11.5 fL 6.2-12.0 [facility] Determination of erythrocyte mean corpuscular volume (MCV)Ordered By: Antonella Loyola on 01-19-2023 MCV (RBC) [Entitic vol] 100.0 fL 81-99 [facility] Hematocrit Auto (Bld) [Volum e fraction]Ordered By: Antonella Loyola on 01-19-2023 Hematocrit (Bld) [Volume fraction] 36.8 % 37-47 [facility] Laboratory - Chemistry and C hemistry - challengeOrdered By: Antonella Loyola on 01-19-2023 ALP [Catalytic activity/Vol] 58 U/L 45-117 [facility] ALT [Catalytic activity/Vol] 15 U/L 13-56 [facility] CO2 [Moles/Vol] 29.0 mmol/L 21.0-32.0 [facility] Cobalamin (Vitamin B12) [Mass/Vol] 1610 pg/mL 211-911 [facility] Free T4 [Mass/Vol] 0.89 ng/dL 0.76-1.46 [facility] Globulin (S) [Mass/Vol] 3.6 g/dL 2.2-4.2 [facility] Urea nitrogen/Creatinine [Mass ratio] 20.4 mg/mg 10-20 [facility] Laboratory - Hematology and Cell countsOrdered By: Antonella Loyola on 01-19-2023 Erythrocyte distribution width (RBC) [Entitic vol] 50.5 fL 35.1-43.9 [facility] Erythrocyte distribution width (RBC) [Ratio] 13.7 % 11.6-14.6 [facility] Immature granulocytes/100 WBC (Bld) 0.200 % 0.0-0.9 [facility] Comment on above: IG% - Immature Granu locytes (promyelocytes, myelocytes and metamyelocytes) > 1% indicates that a LEFT SHIFT is Present. MCH (RBC) [Entitic mass] 32.1 pg 27.0-32.0 [facility] Nucleated RBC/100 WBC (Bld) [Ratio] 0 % 0-5 [facility] MCHC Auto (RBC) [Mass/Vol]Or dered By: Antonella Loyola on 01-19-2023 MCHC (RBC) [Mass/Vol] 32.1 g/dL 32-36 [facility] No Panel InformationOrdered By: Antonella Loyola on 01-19-2023 Estimated GFR (MDRD) Amer 74 mL/min >60 [facility] Comment on above: GFR Calc Estimated GFR (MDRD) Non-Af Amer 61 mL/min >60 [facility] Comment on above: Non- GFR Calc Free Triiodothyronine (T3) pg/dL 1.7 pg/mL 2.18-3.98 [facility] Thyroid Stimulating Hormone (TSH) 1.87 uIU/mL 0.358-3.74 [facility] Platelets bldOrdered By: Aurelia Loyola on 01-19-2023 Platelets (Bld) [#/Vol] 240 10*3/uL 150-450 [facility] Serum or plasma albumin enrrique urement (mass/volume)Ordered By: Antonella Loyola on 01-19-2023 Albumin [Mass/Vol] 3.2 g/dL 3.2-5.0 [facility] Serum or plasma albumin/glob ulin mass ratioOrdered By: Antonella Loyola on 01-19-2023 Albumin/Globulin [Mass ratio] 0.9 {ratio} 0.9-2.4 [facility] Serum or plasma calcium enrrique urement (mass/volume)Ordered By: Antonella Loyola on 01-19-2023 Calcium [Mass/Vol] 9.0 mg/dL 8.5-10.1 [facility] Serum or plasma cholesterol in HDL measurement (mass/volume)Ordered By: Antonella Loyola on 01-19-2023 Cholesterol in HDL [Mass/Vol] 79 mg/dL >40 [facility] Comment on above: The drugs N-Acetylcy steine and Metamizole may falsely depress this assay. Reference Range HDL <40 mg/dL Low HDL Cholesterol HDL >or= 60 mg/dL High HDL Cholesterol Serum or plasma cholesterol in VLDL measurement (mass/volume)Ordered By: Antonella Loyola on 01-19-2023 Cholesterol in VLDL [Mass/Vol] 13 mg/dL 5-40 [facility] Serum or plasma creatinine m easurement (mass/volume)Ordered By: Antonella Loyola on 01-19-2023 Creatinine [Mass/Vol] 0.93 mg/dL 0.55-1.02 [facility] Comment on above: The validity of the calculated GFR & GFRAA in patients over 70 years has not been determined. Clinical correlation is essential. Serum or plasma low density lipoprotein (LDL) cholesterol measurement (mass/volume)Ordered By: Antonella Loyola on 01-19-2023 Cholesterol in LDL [Mass/Vol] 116 mg/dL 0-130 [facility] Serum or plasma urea nitroge n measurement (mass/volume)Ordered By: Antonella Loyola on 01-19-2023 Urea nitrogen [Mass/Vol] 19 mg/dL 7-18 [facility] Thin prep Papanicolaou smear with manual screeningOrdered By: Antonella Loyola on 01-19-2023 Thin prep Papanicolaou smear with manual screening 18 U/L 15-37 [facility] Thin prep Papanicolaou smear with manual screening 3 5-15 [facility] Absolute lymphocyte counton 05-27-2022 Lymphocytes Auto (Unsp spec) [#/Vol] 0.34 10*3/uL 0.83-4.51 [facility] Work Phone: Basophil percentageon 2021 Basophil percentage 0 SEEN /hpf 0-5 [facility] Work Phone: Basophils/100 WBC (Bld) 0.3 % 0-1 [facility] Work Phone: Chloride [Moles/Vol] 102 mmol/L 98-107 [facility] Work Phone: Eosinophils/100 WBC (Bld) 2.0 % 0-5 [facility] Work Phone: Glucose [Mass/Vol] 108 mg/dL 74-106 [facility] Work Phone: Comment on above: Fasting Glucose resu lt from 100 to 125 mg/dL suggests IMPAIRED HOMEOSTASIS per A.D.A. criteria. Neutrophils (Bld) [#/Vol] 4.9 10*3/uL 2.0-7.7 [facility] Work Phone: Neutrophils/100 WBC (Bld) 81.2 % 47-70 [facility] Work Phone: Potassium [Moles/Vol] 3.5 mmol/L 3.5-5.1 [facility] Work Phone: Sodium [Moles/Vol] 138 mmol/L 136-145 [place] [facility] Work Phone: WBC (Bld) [#/Vol] 6.0 10*3/uL 4.4-11.0 [place] [facility] Work Phone: Bilirubin Test strip Ql (U)o n 05-27-2022 Bilirubin Ql (U) Negative Negative [facility] Work Phone: Blood erythrocytes count (nu mber/volume)on 05-27-2022 RBC (Bld) [#/Vol] 3.59 10*6/uL 4.2-5.4 [facility]: Blood hemoglobin measurement (mass/volume)on 05-27-2022 Hemoglobin (Bld) [Mass/Vol] 11.5 g/dL 12.0-15.0 [facility] Work Phone: Blood lymphocytes/100 leukoc yteson 05-27-2022 Lymphocytes/100 WBC (Bld) 5.6 % 19-41 [facility] Work Phone: Blood manual differential co mment interpretation (narrative result)on 05-27-2022 Manual differential comment Jason (Bld) [Interp] SCANNED [facility] Work Phone: Comment on above: LYMPHOPENIA NOTED Blood monocytes/100 leukocyt eson 05-27-2022 Monocytes/100 WBC (Bld) 10.6 % 0-10 [facility] Work Phone: Blood platelet mean volumeon 05-27-2022 Platelet mean volume (Bld) [Entitic vol] 11.1 fL 6.2-12.0 [facility] Work Phone: [phone] Determination of erythrocyte mean corpuscular volume (MCV)on 05-27-2022 MCV (RBC) [Entitic vol] 95.8 fL 81-99 [facility] Work Phone: [phone] Hematocrit Auto (Bld) [Volum e fraction]on 05-27-2022 Hematocrit (Bld) [Volume fraction] 34.4 % 37-47 [facility] Work Phone: [phone] Ketones Test strip Ql (U)on 05-27-2022 Ketones Ql (U) 5 mg/dl Negative [facility] Work Phone: [phone] Laboratory - Chemistry and C hemistry - challengeon 05-27-2022 CO2 [Moles/Vol] 29.0 mmol/L 21.0-32.0 [facility] Work Phone: [phone] Urea nitrogen/Creatinine [Mass ratio] 18.5 mg/mg 10-20 [facility] Work Phone: [phone] Laboratory - Hematology and Cell countson 05-27-2022 Erythrocyte distribution width (RBC) [Entitic vol] 46.7 fL 35.1-43.9 [facility] Work Phone: [phone] Erythrocyte distribution width (RBC) [Ratio] 13.2 % 11.6-14.6 [facility] Work Phone: [phone] Immature granulocytes/100 WBC (Bld) 0.300 % 0.0-0.9 [facility] Work Phone: [phone] Comment on above: IG% - Immature Granu locytes (promyelocytes, myelocytes and metamyelocytes) > 1% indicates that a LEFT SHIFT is Present. MCH (RBC) [Entitic mass] 32.0 pg 27.0-32.0 [facility] Work Phone: [phone] Nucleated RBC/100 WBC (Bld) [Ratio] 0 % 0-5 [facility] Work Phone: [phone] MCHC Auto (RBC) [Mass/Vol]on 05-27-2022 MCHC (RBC) [Mass/Vol] 33.4 g/dL 32-36 [facility] Work [facility]: Mucus LM Ql (Urine sed)on Mucus Ql (Urine sed) 0 SEEN /hpf [facility] Work Phone: Nitrite Test strip Ql (U)on 05-27-2022 Nitrite Ql (U) Negative Negative [facility] Work Phone: No Panel Informationon 05-27 Estimated Creatinine Clearance Calc 48.22 ml/min [facility] Work Phone: Estimated GFR (MDRD) Amer 76 mL/min >60 [facility] Work Phone: Comment on above: GFR Calc Estimated GFR (MDRD) Non-Af Amer 63 mL/min >60 [facility] Work Phone: Comment on above: Non- GFR Calc Platelets bldon 05-27-2022 Platelets (Bld) [#/Vol] 205 10*3/uL 150-450 [facility] Work Phone: Protein Test strip Ql (U)on 05-27-2022 Protein Ql (U) Negative Negative [facility] Work Phone: Serum or plasma calcium enrrique urement (mass/volume)on 05-27-2022 Calcium [Mass/Vol] 9.1 mg/dL 8.5-10.1 [facility] Work Phone: Serum or plasma creatinine m easurement (mass/volume)on 05-27-2022 Creatinine [Mass/Vol] 0.92 mg/dL 0.55-1.02 [facility] Work Phone: Comment on above: The validity of the calculated GFR & GFRAA in patients over 70 years has not been determined. Clinical correlation is essential. Serum or plasma urea nitroge n measurement (mass/volume)on 05-27-2022 Urea nitrogen [Mass/Vol] 17 mg/dL 7-18 [facility] Work Phone: Squamous epithelial cells de tection in urine sediment by light microscopyon 05-27-2022 Epithelial cells.squamous LM Ql (Urine sed) 0 SEEN /hpf 5-10 [facility] Work Phone: Thin prep Papanicolaou smear with manual screeningon 05-27-2022 Thin prep Papanicolaou smear with manual screening 7 5-15 [facility] Work Phone: Urine blood detectionon RBC Ql (U) Negative Negative [facility] Work Phone: RBC Ql (U) 0 SEEN /hpf 0-5 [facility] Work Phone: Urine clarityon 05-27-2022 Clarity (U) Clear Clear [facility] Work Phone: Urine color determinationon 05-27-2022 Color (U) Yellow Yellow [facility] Work Phone: Urine glucose detectionon Glucose Ql (U) Normal mg/dl Normal [facility] Work Phone: Urine leukocyte esterase det ection by dipstickon 05-27-2022 Leukocyte esterase Test strip Ql (U) Negative Negative [facility] Work Phone: Urine pHon 05-27-2022 pH (U) 7.0 [pH] 5.0 - 8.0 [facility] Work Phone: Urine sediment bacteria coun t by microscopy (number/high power field)on 05-27-2022 Bacteria LM.HPF (Urine sed) [#/Area] 0 /[HPF] None Seen [facility] Work Phone: Urine specific gravity measu rementon 05-27-2022 Specific gravity (U) [Rel density] 1.010 1.002-1.030 [facility] Work Phone: Urobilinogen Auto test strip Ql (U)on 05-27-2022 Urobilinogen Ql (U) Normal mg/dl Normal [facility] Work Phone: Absolute lymphocyte counton 01-01-2022 Lymphocytes Auto (Unsp spec) [#/Vol] 1.64 10*3/uL 0.83-4.51 [facility] Work Phone: Basophil percentageon 2021 Basophil percentage 0-5 SEEN /hpf 0-5 [facility] Work Phone: Basophils/100 WBC (Bld) 0.7 % 0-1 [facility] Work Phone: Bilirubin [Mass/Vol] 0.30 mg/dL 0.20-1.00 [facility] Work Phone: Comment on above: For patients on eltr ombopag therapy, use of Dimension [place] TBIL is not recommended. Chloride [Moles/Vol] 107 mmol/L 98-107 [facility] Work Phone: Eosinophils/100 WBC (Bld) 1.8 % 0-5 [facility] Work Phone: Glucose [Mass/Vol] 81 mg/dL 74-106 [facility] Work Phone: Neutrophils (Bld) [#/Vol] 3.6 10*3/uL 2.0-7.7 [facility] Work Phone: Neutrophils/100 WBC (Bld) 60.7 % 47-70 [facility] Work Phone: Potassium [Moles/Vol] 4.1 mmol/L 3.5-5.1 [facility] Work Phone: Protein [Mass/Vol] 6.7 g/dL 6.4-8.2 [facility] Work Phone: Sodium [Moles/Vol] 140 mmol/L 136-145 [facility] Work Phone: WBC (Bld) [#/Vol] 6.0 10*3/uL 4.4-11.0 [facility] Work Phone: Bilirubin Test strip Ql (U)o n 01-01-2022 Bilirubin Ql (U) Negative Negative [facility] Work Phone: Blood erythrocytes count (nu mber/volume)on 01-01-2022 RBC (Bld) [#/Vol] 3.57 10*6/uL 4.2-5.4 [facility] Work Phone: Blood hemoglobin measurement (mass/volume)on 01-01-2022 Hemoglobin (Bld) [Mass/Vol] 11.2 g/dL 12.0-15.0 [facility] Work Phone: Blood lymphocytes/100 leukoc yteson 01-01-2022 Lymphocytes/100 WBC (Bld) 27.5 % 19-41 [facility] Work Phone: Blood monocytes/100 leukocyt eson 01-01-2022 Monocytes/100 WBC (Bld) 9.0 % 0-10 [facility] Work Phone: Blood platelet mean volumeon 01-01-2022 Platelet mean volume (Bld) [Entitic vol] 12.7 fL 6.2-12.0 [facility] Work Phone: Determination of erythrocyte mean corpuscular volume (MCV)on 01-01-2022 MCV (RBC) [Entitic vol] 98.0 fL 81-99 [facility] Work Phone: Erythrocyte sedimentation ra trent 01-01-2022 ESR (Bld) [Velocity] 16 mm/h 0-30 [facility] Work Phone: [phone] Hematocrit Auto (Bld) [Volum e fraction]on 01-01-2022 Hematocrit (Bld) [Volume fraction] 35.0 % 37-47 [facility] Work Phone: Ketones Test strip Ql (U)on 01-01-2022 Ketones Ql (U) Negative Negative [facility] Work Phone: Laboratory - Chemistry and C hemistry - challengeon 01-01-2022 ALP [Catalytic activity/Vol] 56 U/L 45-117 [facility] Work Phone: ALT [Catalytic activity/Vol] 20 U/L 13-56 [facility] Work Phone: CO2 [Moles/Vol] 29.0 mmol/L 21.0-32.0 [facility] Work Phone: Free T4 [Mass/Vol] 1.25 ng/dL 0.76-1.46 [facility] Work Phone: [phone] Globulin (S) [Mass/Vol] 3.3 g/dL 2.2-4.2 [facility] Work Phone: [phone] Urea nitrogen/Creatinine [Mass ratio] 25.0 mg/mg 10-20 [facility] Work Phone: [phone] Laboratory - Hematology and Cell countson 01-01-2022 Erythrocyte distribution width (RBC) [Entitic vol] 47.1 fL 35.1-43.9 [facility] Work Phone: [phone] Erythrocyte distribution width (RBC) [Ratio] 13.1 % 11.6-14.6 [facility] Work Phone: [phone] Immature granulocytes/100 WBC (Bld) 0.300 % 0.0-0.9 [facility] Work Phone: [phone] Comment on above: IG% - Immature Granu locytes (promyelocytes, myelocytes and metamyelocytes) > 1% indicates that a LEFT SHIFT is Present. MCH (RBC) [Entitic mass] 31.4 pg 27.0-32.0 [facility] Work Phone: [phone] Nucleated RBC/100 WBC (Bld) [Ratio] 0 % 0-5 [facility] Work Phone: [phone] MCHC Auto (RBC) [Mass/Vol]on 01-01-2022 MCHC (RBC) [Mass/Vol] 32.0 g/dL 32-36 [facility] Work Phone: [phone] Mucus LM Ql (Urine sed)on Mucus Ql (Urine sed) 0 SEEN /hpf [facility] Work Phone: [phone] Nitrite Test strip Ql (U)on 01-01-2022 Nitrite Ql (U) Negative Negative [facility] Work Phone: [phone] Panel Informationon 01-01 Estimated GFR (MDRD) Amer 80 mL/min >60 [facility] Work Phone: [phone] Comment on above: GFR Calc Estimated GFR (MDRD) Non-Af Amer 66 mL/min >60 [facility] Work Phone: [phone] Comment on above: Non- GFR Calc Free Triiodothyronine (T3) pg/dL 2.3 pg/mL 2.18-3.98 [facility] Work Phone: [phone] Thyroid Stimulating Hormone (TSH) 0.22 uIU/mL 0.358-3.74 [facility] Work Phone: [phone] Platelets bldon 01-01-2022 Platelets (Bld) [#/Vol] 184 10*3/uL 150-450 [facility] Work Phone: [phone] Protein Test strip Ql (U)on 01-01-2022 Protein Ql (U) Negative Negative [facility] Work Phone: [phone] Serum or plasma C reactive p rotein measurement (mass/volume)on 01-01-2022 CRP [Mass/Vol] mg/L 0.0-3.0 [facility] Work Phone: Comment on above: C-Reactive Protein ( CRP) provides useful information for thediagnosis, therapy and monitoring of inflammatory processesand associated diseases. For the evaluation of Relative Riskfor Cardiovascular Disease, a High Sensitivity CRP (HSCRP)should be ordered. Serum or plasma albumin enrrique urement (mass/volume)on 01-01-2022 Albumin [Mass/Vol] 3.4 g/dL 3.2-5.0 [facility] Work Phone: [phone] Serum or plasma albumin/glob ulin mass ratioon 01-01-2022 Albumin/Globulin [Mass ratio] 1.0 {ratio} 0.9-2.4 [facility] Work Phone: [phone] Serum or plasma calcium enrrique urement (mass/volume)on 01-01-2022 Calcium [Mass/Vol] 8.8 mg/dL 8.5-10.1 [facility] Work Phone: [phone] Serum or plasma creatinine m easurement (mass/volume)on 01-01-2022 Creatinine [Mass/Vol] 0.88 mg/dL 0.55-1.02 [facility] Work Phone: Comment on above: The validity of the calculated GFR & GFRAA in patients over 70 years has not been determined. Clinical correlation is essential. Serum or plasma urea nitroge n measurement (mass/volume)on 01-01-2022 Urea nitrogen [Mass/Vol] 22 mg/dL 7-18 [facility] Work Phone: Serum or plasma uric acid me asurement (mass/volume)on 01-01-2022 Urate [Mass/Vol] 4.7 mg/dL 2.6-6.0 [facility] Work Phone: Comment on above: The drugs N-Acetylcy steine and Metamizole may falsely depress this assay. Squamous epithelial cells de tection in urine sediment by light microscopyon 01-01-2022 Epithelial cells.squamous LM Ql (Urine sed) 0-5 SEEN /hpf 5-10 [facility] Work Phone: Thin prep Papanicolaou smear with manual screeningon 01-01-2022 Thin prep Papanicolaou smear with manual screening 18 U/L 15-37 [facility] Work Phone: Thin prep Papanicolaou smear with manual screening 4 5-15 [facility] Work Phone: Urine blood detectionon 12-23 RBC Ql (U) Negative Negative [facility] Work Phone: RBC Ql (U) 0 SEEN /hpf 0-5 [facility] Work Phone: Urine clarityon 01-01-2022 Clarity (U) Sl. Cloudy Clear [facility] Work Phone: Urine color determinationon 01-01-2022 Color (U) Yellow Yellow [facility] Work Phone: Urine glucose detectionon Glucose Ql (U) Normal mg/dl Normal [facility] Work Phone: Urine leukocyte esterase det ection by dipstickon 01-01-2022 Leukocyte esterase Test strip Ql (U) 25 /ul Negative [facility] [facility] Work Phone: Urine pHon 01-01-2022 pH (U) 6.5 [pH] 5.0 - 8.0 [facility] Work Phone: Urine sediment bacteria coun t by microscopy (number/high power field)on 01-01-2022 Bacteria LM.HPF (Urine sed) [#/Area] 1 /[HPF] None Seen [facility] Work Phone: Urine specific gravity measu rementon 01-01-2022 Specific gravity (U) [Rel density] 1.015 1.002-1.030 [facility] Work Phone: Urobilinogen Auto test strip Ql (U)on 01-01-2022 Urobilinogen Ql (U) Normal mg/dl Normal [facility] Work Phone: Culture, urine Bacteria identified Cx Nom (U) Corynebacterium jeikeium [facility] Work Phone: Bacteria identified Cx Nom (U) Corynebacterium urealyticum [facility] Work Phone: Bacteria identified Cx Nom (U) Mixed Culture [facility] Work Phone: Bacteria identified Cx Nom (U) Positive [facility] Work Phone: No Panel Information SARS-CoV-2 & FLU Antigen (Rapid) [facility] Work Phone: Vital Signs Date Time Vital Sign Value Performing Clinician Faci lity 01-28-2025 13:58-0400 Body height 167.[address] Antonella Loyola DO Work Phone: [facility] 01-28-2025 13:09-0400 Body height 167.[address] Antonella Loyola DO Work Phone: [facility] 01-28-2025 13:09-0400 Body mass index (BMI) [Ratio] 20 kg/m2 Dr. Antonella Loyola DO Work Phone: [facility] 01-28-2025 13:09-0400 Body temperature 96.8 [degF] Dr. Antonella Loyola DO Work Phone: [facility] 01-28-2025 13:09-0400 Body weight 56.[address] Antonella Loyola DO Work Phone: [facility] 01-28-2025 13:09-0400 Diastolic blood pressure 90 mm[Hg] Dr. Antonella Loyola DO Work Phone: [facility] 01-28-2025 13:09-0400 Heart rate 72 /min Dr. Antonella Loyola DO Work Phone: [facility] 01-28-2025 13:09-0400 Respiratory rate 13 /min Dr. Antonella Loyola DO Work Phone: [facility] 01-28-2025 13:09-0400 SaO2% (BldA) [Mass fraction] 96 % Dr. Antonella Loyola DO Work Phone: [facility] 01-28-2025 13:09-0400 Systolic blood pressure 158 mm[Hg] Dr. Antonella Loyola DO Work Phone: [facility] 01-20-2025 14:28-0400 Body height 167.[address] Antonella Loyola DO Work Phone: [facility] 01-20-2025 14:28-0400 Body mass index (BMI) [Ratio] 21.7 kg/m2 Dr. Antonella Loyola DO Work Phone: [facility] 01-20-2025 14:28-0400 Body temperature 98 [degF] Dr. Antonella Loyola DO Work Phone: [facility] 01-20-2025 14:28-0400 Body weight 61.[address] Antonella Loyola DO Work Phone: [facility] 01-20-2025 14:28-0400 Diastolic blood pressure 77 mm[Hg] Dr. Antonella Loyola DO Work Phone: [facility] 01-20-2025 14:28-0400 Heart rate 83 /min Dr. Antonella Loyola DO Work Phone: [facility] 01-20-2025 14:28-0400 Respiratory rate 16 /min Dr. Antonella Loyola DO Work Phone: [facility] 01-20-2025 14:28-0400 SaO2% (BldA) [Mass fraction] 98 % Dr. Antonella Loyola DO Work Phone: [facility] 01-20-2025 14:28-0400 Systolic blood pressure 134 mm[Hg] Dr. Antonella Loyola DO Work Phone: [facility] 10-29-2024 13:27-0400 Body mass index (BMI) [Ratio] 20 kg/m2 Dr. Antonella Loyola DO Work Phone: [facility] 10-29-2024 13:27-0400 Body temperature 98 [degF] Dr. Antonella Loyola DO Work Phone: [facility] 10-29-2024 13:27-0400 Body weight 56.[address] Antonella Loyola DO Work Phone: [facility] 10-29-2024 13:27-0400 Diastolic blood pressure 89 mm[Hg] Dr. Antonella Loyola DO Work Phone: [facility] 10-29-2024 13:27-0400 Heart rate 73 /min Dr. Antonella Loyola DO Work Phone: [facility] 10-29-2024 13:27-0400 Respiratory rate 16 /min Dr. Antonella Loyola DO Work Phone: [facility] 10-29-2024 13:27-0400 SaO2% (BldA) [Mass fraction] 93 % Dr. Antonella Loyola DO Work Phone: [facility] 10-29-2024 13:27-0400 Systolic blood pressure 156 mm[Hg] Dr. Antonella Loyola DO Work Phone: [facility] 08-01-2024 14:45-0500 Body mass index (BMI) [Ratio] 19.7 kg/m2 Dr. Antonella Loyola DO Work Phone: [facility] 07-04-2023 17:35-0500 Body height 177.8 cm [facility] 07-04-2023 17:35-0500 Body mass index (BMI) [Ratio] 18.3 kg/m2 [facility] 07-04-2023 17:35-0500 Body temperature 97.5 [degF] [facility] 07-04-2023 17:35-0500 Body weight 58.05 kg [facility] 07-04-2023 17:35-0500 Diastolic blood pressure 91 mm[Hg] [facility] 07-04-2023 17:35-0500 Heart rate 89 /min [facility] 07-04-2023 17:35-0500 Respiratory rate 16 /min [facility] 07-04-2023 17:35-0500 SaO2% (BldA) [Mass fraction] 96 % [facility] 07-04-2023 17:35-0500 Systolic blood pressure 170 mm[Hg] [facility] 07-04-2023 11:13-0500 Diastolic blood pressure 89 mm[Hg] [facility] 07-04-2023 11:13-0500 Heart rate 74 /min [facility] 07-04-2023 11:13-0500 Respiratory rate 16 /min [facility] 07-04-2023 11:13-0500 SaO2% (BldA) [Mass fraction] 97 % [facility] 07-04-2023 11:13-0500 Systolic blood pressure 161 mm[Hg] [facility] 07-04-2023 09:20-0500 Body mass index (BMI) [Ratio] 18.9 kg/m2 [facility] 07-04-2023 09:20-0500 Body weight 54.9 kg [facility] 07-04-2023 09:12-0500 Body height 170.18 cm [facility] 07-04-2023 09:12-0500 Body temperature 97.5 [degF] [facility] 11-23-2022 12:11-0400 Body height 170.[address] Antonella Loyola Work Phone: [facility] 11-03-2022 10:56-0400 Body height 170.[address] Antonella Loyola Work Phone: [facility] 11-03-2022 10:56-0400 Body mass index (BMI) [Ratio] 21 kg/m2 Dr. Antonella Loyola Work Phone: [facility] 11-03-2022 10:56-0400 Body weight 60.[address] Antonella Loyola Work Phone: [facility] 05-27-2022 22:19-0400 Diastolic blood pressure 72 mm[Hg] [facility] Work Phone: 05-27-2022 22:19-0400 Heart rate 76 /min [facility] Work Phone: 05-27-2022 22:19-0400 Respiratory rate 16 /min [facility] Work Phone: 05-27-2022 22:19-0400 SaO2% (BldA) [Mass fraction] 96 % [facility] Work Phone: 05-27-2022 22:19-0400 Systolic blood pressure 145 mm[Hg] [facility] Work Phone: 05-27-2022 18:59-0400 Body height 170.18 cm [facility] Work Phone: 05-27-2022 18:59-0400 Body mass index (BMI) [Ratio] 21.8 kg/m2 [facility] Work Phone: 05-27-2022 18:59-0400 Body weight 63.2 kg [facility] Work Phone: 05-27-2022 18:03-0400 Body temperature 97.8 [degF] [facility] Work Phone: Encounters Encounter Date Encounter Type Care Provider Facility Start: 02-15-2025 End: 02-15-[address] Antonella Loyola DO Work Phone: -[facility] Start: 02-15-2025 End: 02-15-2025 Patient encounter procedure Cecilia Campbell SAWMILLING OPERATOR-C -[facility] Work Phone: Start: 02-15-2025 End: 02-15-2025 ambulatory Antonella Loyola Facility:[facility] Start: 01-28-2025 Registered Recurring Cecilia Campbell SAWMILLING OPERATOR-C -[facility] Start: 01-28-2025 End: 01-28-[address] Laurence Mayer MD -[facility] Work Phone: Start: 01-28-2025 End: 01-28-[address] Antonella Loyola DO Work Phone: -[facility] Start: 01-22-2025 Non-patient / Non-visit Dr. Cherie pineda MD -[facility] Work Phone: Start: 01-20-2025 End: 01-20-2025 Emergency department patient visit Dr. Antonella Loyola DO Work Phone: -Emergency Department Work Phone: Start: 10-29-2024 End: 10-29-2024 Patient encounter procedure Cecilia Campbell SAWMILLING OPERATOR-C -[facility] Work Phone: Start: 10-29-2024 End: 10-29-2024 ambulatory Cecilia Campbell SAWMILLING OPERATOR Facility:[facility] Start: 08-01-2024 End: 08-01-2024 ambulatory Antonella Loyola Facility:[facility] Start: 04-30-2024 End: 04-30-2024 ambulatory Antonella Loyoal Facility:[facility] Start: 04-16-2024 End: 04-16-2024 ambulatory Antonella Loyola Facility:[facility] Start: 04-04-2024 ambulatory Miguel Mariee Facility: [facility] Start: 04-04-2024 End: 04-04-2024 ambulatory Miguel Mariee Facility:[facility] Start: 03-29-2024 End: 03-29-2024 ambulatory Antonella Loyola Facility:[facility] Start: 03-14-2024 End: 03-14-2024 ambulatory Antonella Loyola Facility:[facility] Start: 02-29-2024 End: 02-29-2024 ambulatory Antonella Loyola Facility:[facility] Start: 02-29-2024 End: 02-29-2024 ambulatory Miguel Mariee Facility:[facility] Start: 02-24-2024 End: 02-24-2024 [facility] Start: 07-04-2023 End: 07-04-2023 Emergency department patient visit [facility]-Emergency Department Work Phone: Start: 07-04-2023 End: 07-04-2023 Emergency department patient visit [facility] Work Phone: Start: 01-19-2023 End: 01-19-[address] Antonella Loyola Work Phone: [facility] Work Phone: Start: 01-19-2023 End: 01-19-[address] Antonella Loyola Work Phone: [facility] Work Phone: Start: 11-24-2022 End: 11-24-[address] Antonella Loyola Work Phone: [facility] Work Phone: Start: 11-13-2022 End: 11-13-[address] Antonella Loyola Work Phone: [facility] Work Phone: Start: 11-13-2022 End: 11-13-[address] Antonella Loyola Work Phone: [facility] Start: 11-03-2022 End: 11-03-[address] Antonella Loyola Work Phone: [facility] Start: 05-27-2022 End: 05-27-2022 Emergency department patient visit [facility]-Emergency Department Start: 04-22-2022 End: 04-22-2022 ambulatory [facility] Work Phone: Start: 04-22-2022 End: 04-22-2022 Patient encounter procedure [facility]-Laboratory, Specimen Start: 01-28-2022 End: 01-28-2022 Patient encounter procedure [facility] Start: 01-21-2022 End: 01-21-2022 Patient encounter procedure [facility]-Laboratory, Specimen Start: 01-01-2022 End: 01-01-2022 Patient encounter procedure [facility], [place] Procedures Date Procedure Procedure Detail Performing Clinician [...] 02-15-2025 MG Breast - bilatera l Screening [facility] Start: 01-28-2025 [facility] Start: 01-20-2025 [facility] Start: 01-20-2025 Simple repair scalp/neck/ax/genit/trunk 2.5cm/< RPR S/N/AX/GEN/TRNK 2.5CM/< [facility] Start: 07-04-2023 [facility] Start: 07-04-2023 [facility] Start: 11-24-2022 Patient referral [facility] Work Phone: Start: 01-01-2022 Bacteria identified in Urine by Culture Urine Culture [facility] Work Phone: CBC W Auto Different ial panel - Blood [facility] Comprehensive metabo lic 2000 panel - Serum or Plasma [facility] Patient Education [facility] Work Phone: Patient referral [facility] Work Phone: Immunizations Immunization Date Immunization Notes Care Provider Fa cility 01-20-2025 tetanus toxoid, redu jess diphtheria toxoid, and acellular pertussis vaccine, adsorbed Dr. Antonella Loyola DO Work Phone: [facility] 05-03-2018 Influenza virus vaccine [facility] 08-02-2013 Influenza virus vaccine [facility] Payers Date Payer Category Payer Self-pay [id number] 2015 Private Health Insurance [id number] 2007 Medicare [id number] Unknown [id number] 2.16.8 [id number] Unknown [id number] 2.16.8 [id number] Unknown [id number] 2.16.8 [id number] Unknown [id number] 2.16.8 [id number] Unknown [id number] 2.16.8 [id number] Unknown [id number] 2.16.8 [id number] Unknown [id number] 2.16.8 [id number] Unknown [id number] 2.16.8 [id number] Unknown [id number] 2.16.8 [id number] Unknown [id number] 2.16.8 [id number] Unknown [id number] 2.16.8 [id number] Unknown [id number] 2.16.8 [id number] Unknown [id number] 2.16.8 [id number] Unknown [id number] 2.16.8 [id number] Unknown [id number] 2.16.8 [id number] Unknown [id number] 2.16.8 [id number] Social History Date Type Detail Facility Start: 03-20-2021 End: 07-04-2023 Tobacco smoking status NYIS Unknown if ever smoked [facility] Start: 08-09-2018 Rare [facility] Start: 08-09-2018 None [facility] Start: 09-10-2020 Spouse/ Signif icant Other [facility] Start: 08-10-2018 Non-smoker [facility] Start: 1940 Sex Assigned At Female W [facility] Start: 01-20-2025 Tobacco smoking status NHIS Never smoked tobacco (finding) [facility] Medical Equipment Procedure Code Equipment Code Equipment Origin al Text Equipment Identifier Dates Lumpectomy, breast, with needle localization SUTURE,LIGA CLIP SM LT-100 FDA Start: 04-04-2024 Lumpectomy, breast, with needle localization SUTURE,LIGA CLIP SM LT-100 FDA Start: 04-04-2024 Lumpectomy, breast, with needle localization SUTURE,LIGA CLIP SM LT-100 FDA Start: 04-04-2024 Mental Status Date Assessment Result Facility 01-28-2025 Cognitive function Awake;Appropr iate;Follows Commands [facility] Work Phone: 08-01-2024 Cognitive function Awake;Alert;A ppropriate;Follo ws Commands [facility] Work Phone: 07-04-2023 Cognitive function Level Of Consciousness Awake [facility] Work Phone: 07-04-2023 Cognitive function Level Of Cons ciousness Awake;Appropriate;Follows Commands;Disoriented [facility] Work Phone: 05-27-2022 Cognitive function Appropriate;Cooperativ e [facility] Work Phone: Clinical Notes 07-04-2023 to 01-28-2025 Note Date & Type Note Facility 01-28-[address] [facility] 10-29-2024 Evaluation note Diagnosis Onset Date Resolution Invasive ductal carcinoma of breast acute October 29 1:14pm [facility] Work Phone: 1(961) 841-543504-07-2025 Evaluation note* Diagnosis Onset Date Resolution Status Admit Date Invasive ductal carcinoma of breast acute October 29, 2024 1:14pm Invasive ductal carcinoma of breast acute January 28, 2025 1 2:43pm [facility] Work Phone: 1(748) 985-906409-11-2024 [facility] Medical Records Department [address] [place] [address] History Physical Exam 04/04/24 1041 MR#: [id number] Acct: [id number] Name: ESTRADA MURO Rep #: [id number] : 1940 83 From: Miguel Mariee MD PCP: Dr. Antonella Loyola, DO [place] [place] [address] History and Physical Date of Service: 03/29/24 MR#: [id number] Acct: [id number] Name: ESTRADA MURO Rep #: [id number] : 1940 Provider: Dr. Miguel Mariee MD Age/Sex: 83/F Location: [facility] Status: Signed Intake Vital Signs 03/14/2415:28 [...] Breast Breast: Yes ab (more content not included)...[facility] 07-04-2023 Discharge summary Author Marcos Beckford [facility] July 04, 2023 7:35pm Note Date/Time July 04, 2023 6:26pm [facility] Medical Records Department [address] [place] [address] Emergency Department Summary 07/04/23 MR#: [id number] Acct: [id number] Name: ESTRADA MURO Rep #:[id number] : [...] so he returned to the emergency department. [facility] Medical History Anxiety Arthritis Depression Enteritis [...] sinus headache. They were told to use vmes-wnf-lpwvrvy medications such as Claritin, and Coricidin HBP [...] if not improving Activity Restrictions/Additional Instructions: Use xbux-ruw-xcbymww medications like Claritin is an antihistamine. You [...] your Primary Care Provider. Call [facility] ([phone]) or report to the closest Emergency Room. Call 911 if necessary. 07/04/231934 <Electronically signed by Marcos Beckford MD> Cosigner Signature (if applicable): CC: Dr. Antonella Loyola DO ~ Signed [facility] Work Phone: Discharge summary Author [facility] July 04, 2023 11:11am Note Date/Time July 04, 2023 10:06am [facility] Medical Records Department [address] [place] [address] Emergency Department Summary 07/04/23 MR#: [id number] Acct: [id number] Name: ESTRADA MURO Rep #:[id number] : [...] There is no clonus right or left. [place] Coma Scale: document GCS findings Spontaneous Obeys [...] 84.9 H Lymph % (Auto) 6.7 L [place] % (Auto) 7.2 Eos % (Auto) 0.2 [...] of the brain. Mild sinusitis. Electronically Signed: aYng Bolden MD at 10:57 EST , Treatment [...] your Primary Care Provider. Call [facility] ([phone]) or report to the closest Emergency Room. Call 911 if necessary. 07/04/23 1111 <Electronically signed by Al Bassett MD> Cosigner Signature (if applicable): CC: Dr. Antonella Loyola DO ~ Signed [facility] Work Phone: Evaluation noteNo assessment information available [facility] Work Phone: Evaluation note* Diagnosis Onset Date Resolution Status Degenerative spondylolisthesis acute [facility] Work Phone: Evaluation note* Diagnosis Onset Date Resolution Status Degenerative spondylolisthesis acute Degenerative spondylolisthesis acute Spinal stenosis at L4-L5 level acute [facility] Work Phone: Hospital Discharge instructions Additional Instructions Use pmft-tic-zuynoky medications like Claritin is an antihistamine. You may also use a decongestant such as Coricidin HBP. Avoid use of pseudoephedrine or products that will elevate her blood pressure. You may use the nasal steroid 1 spray per nostril per day for up to 5 days.[facility] Work Phone: Hospital Discharge instructionsAdditional Instructions Keep the area clean. Pat dry after showering. You can apply bacitracin and a bandage. The stitches need removed in 10 days. Please be seen immediately if you develop signs of infection like significant redness, swelling, pus, increased pain or fever.[facility] Work Phone: Progress note Author Laurence Mayer [facility] Note Date/Time January 28, 2025 1:47p m [facility] [address] [place] [address] OFFICE VISIT Date of Service: 01/28/25 1308 MR#: [id number] Acct: [id number] Name: ESTRADA MURO Rep #: [id number] : 1940 From: Laurence obrien MD Age/Sex: 84/F Location: [facility] Status: Signed HPI Subjective Date of [...] present Additional Findings: None Breast Marker Study: [id number] ER: >95% VA: 0% Her2: 2+ (equivocal) Ki67:5% Negative for overexpression of FMO1gmc by FISH April 04, 2024 left breast [...] muscle: No skeletal muscle present Histologic Grade (Winfield grade): Glandular/tubular differentiation score: 2 Nuclear pleomorphism [...] Ancillary studies: Previously performed on same tumor ([id number] / [id number]). ER: Positive, >95% VA: Negative, 0%, Her2 annie: 2+ by immunohistochemistry and not amplified (1.1) by in situ hybridization Ki67: 5% Clinical history: Mass of breast PATHOLOGIC STAGE: T1c Nx Mx Treatment summary and response: March 2024 left breast lumpectomy. April 2024 anastrozole [facility] Medical History Screening for breast cancer [...] grade 2, ER positive (over 95% strong) VA negative (0%) HER2/annie not overexpressed (2+ on [...] Follow-up in 6 months. Laurence Mayer MD Admission Discharge Rn, [facility] Divisions of Medical Oncology & Hematology Department of Internal Medicine [place] [id number] This note was generated using a voice [...] Cosigner Signature: Date (if applicable) CC: ~ [facility] Work Phone: Reason for referral (narrative)No reason for [facility] information [facility] Work Phone: Family History No Family [...] Unknown August 09, 2018 1:51am Family History?Diabe ejns, Heart Disease Unknown August 09, 2018 1:51am Family History?Diabe jens, Heart Disease Unknown January 26, 2023 11:08am Family History?No pe rtinent history Unknown August 09, 2018 1:43am Relationship Condition Age at Onset Recorded Date/T moose Not Specified No pertinent family history Unknown Advance Directives No Advanced Directives Records Found Advance Directive Response Recorded Date/ Time Living Will Yes March 20 5:10am Power of Disability Representative Yes March 20 5:10am Advance Directive Response Recorded Date/ Time Name of Medical Power of Disability Representative PHILL Chi May 27, 2022 6:52pm Living Will Yes May 27 6:52pm Power of Disability Representative Yes May 27, 2022 6:52pm Advance Directive Response Recorded Date/ Time Living Will Yes May 27 6:52pm Power of Disability Representative Yes May 27, 2022 6:52pm Advance Directive Response Recorded Date/ Time Living Will Yes November 23, 2022 12 :11pm Power of Disability Representative Yes November 23, 2022 12:11pm Advance Directive Response Recorded Date/ Time Living Will Yes July 04 9:20am Power of Disability Representative Yes July 04, 2023 9:20am Name of Medical Power of Disability Representative July 04, 2023 9:20am Advance Directive Response Recorded Date/ Time Name of Medical Power of Disability Representative July 04, 2023 9:20am Living Will No July 04 6:04pm Power of Disability Representative No July 04, 2023 6:04pm Advance Directive Response Recorded Date/ Time Do you have a Healthcare Power of Disability Representative? Yes January 20, 2025 3:02pm Advance Directive Response Recorded Date/ Time Living Will No March 29 3:41pm Do you have a Healthcare Power of Disability Representative? No March 29, 2024 3:41pm Do you have a Healthcare Power of Disability Representative? Yes January 20, 2025 3:02pm Chief Complaint [...] 2024 End: October 29, 2024 Cecilia Campbell SAWMILLING OPERATOR, SAWMILLING OPERATOR-C Attending Provider Active Start: October 29, 2024 End: October 29, 2024 Team Status: Inactive Member Role/Relationship Status Dates Dr. Antonella Loyola DO Primary Care Provider Active Start: January 20, 2025 End: January 20, 2025 Dr. Hakeem Hayward MD Referring Provider Active S tart: January 20, 2025 End: January 20, 2025 Dr. Hakeem Haywrad MD Emergency Provider Active S tart: January [...] Active Start: January 28, 2025 Ceciliajaneen WelchShannan SAWMILLING OPERATOR, SAWMILLING OPERATOR-C Attending Provider Active Start: January 28, 2025 Cecilia Shannan SAWMILLING OPERATOR, SAWMILLING OPERATOR-C Referring Provider Active Start: January 28, 2025 [...] Active Start: January 28, 2025 Cecilia Shannan SAWMILLING OPERATOR, SAWMILLING OPERATOR-C Attending Provider Active Start: January 28, 2025 Cecilia Shannan SAWMILLING OPERATOR, SAWMILLING OPERATOR-C Referring Provider Active Start: January 28, 2025 Team Status: Inactive Member Role/Relationship Status Dates Dr. Antonella Loyola DO Primary Care Provider Active Start: February 15, 2025 End: February 15, 2025 Cecilia Shannan SAWMILLING OPERATOR, SAWMILLING OPERATOR-C Attending Provider Active Start: February 15, 2025 End: February 15, 2025 Cecilia Shannan SAWMILLING OPERATOR, SAWMILLING OPERATOR-C Referring Provider Active Start: February 15, 2025 End: February 15, 2025 INFORMATION SOURCE (unrecogn ized section and content) DATE CREATED AUTHOR 02/22/2025 [facility] FOR RECORDS PERTAINING TO PATIENTS WHO [...] BE BASED ON THE PRIMARY CLINICAL RECORDS. [facility] provides no warranty or guarantee of the accuracy or completeness of information in this document.
[2025-07-17 17:07] VITALS: BP 173/84; PULSE 84; RESP 16; TEMP 37.1; O2SAT 96
--- NOTE | 2025-07-17 17:17 | EKG12_ITS ---
Test Reason : Blood Pressure : */* mmHG Vent. Rate : 85 BPM Atrial Rate : 85 BPM P-R Int : 172 ms QRS Dur : 92 ms QT Int : 402 ms P-R-T Axes : 58 -15 31 degrees QTcB Int : 478 ms Normal sinus rhythm Normal ECG Confirmed by Rodrigo Hanks ([id number]), copy editor MARITZA MURRAY ([id number]) on 07/19/2025 8:05:11 AM Referred By: Confirmed By: Rodrigo Hanks
[2025-07-17] MEDS: 0.9% Normal Saline (500mL Bag) 500 ML 1000 ML IV (17:31)
[2025-07-17 17:34] VITALS: BMI 19.7
--- NOTE | 2025-07-17 17:36 | RAD_ITS ---
PROCEDURE: CHEST 1 VIEW (PORTABLE) 07/17/2025 REASON FOR EXAM: NEAR SYNCOPE TECHNIQUE: Frontal view of the chest. COMPARISON: 07/17/2025 FINDINGS: Lungs/Pleura: No airspace consolidation, pneumothorax or sizable pleural effusion. Mild left basilar subsegmental atelectasis. No significant vascular congestion. Heart/Mediastinum: Borderline enlarged. Tortuous thoracic aorta. Bones/Soft tissues: Mild degenerative changes of the spine. RAD/Chest 1 View (Portable) IMPRESSION: No acute cardiopulmonary disease. Reading Location: [id number]
[2025-07-17 17:47] LABS: Hematocrit 36.1 % (37-47); Hemoglobin 11.7 g/dL (12.0-15.0); Immature Granulocytes Count 0.040 X10^3/uL (0.0-0.0); Mean Corp Hgb Conc 32.4 g/dL (32-36); Mean Corpuscular Volume 99.4 fL (81-99); Mean Platelet Vol. 12.0 fl (6.2-12.0); NRBC Flagged by Analyzer 0 % (0-5); POSITIVE DIFFERENTIAL YES; Platelet Count 146 K/mm3 (150-450); RBC Distribution Width CV 13.2 % (11.6-14.6); RBC Distribution Width SD 47.7 fl (35.1-43.9); Red Blood Count 3.63 M/mm3 (4.2-5.4); White Blood Count 8.6 K/mm3 (4.4-11.0)
[2025-07-17 17:59] LABS: Anion Gap 12 (7-18); BUN 19 mg/dL (4-19); BUN/Creat Ratio 25.0 RATIO (10-20); Calcium,Total 9.0 mg/dL (7.6-11.0); Carbon Dioxide 24.8 mmol/L (20.0-29.0); Chloride 101 mmol/L (96-106); Estimated Creatinine Clearance 47.42 ml/min (50-250); Glucose 125 mg/dL (70-99); Potassium 3.8 mmol/L (3.5-5.1)
[2025-07-17 18:00] VITALS: BP 187/71; PULSE 78; RESP 14; TEMP 36.8; O2SAT 97
[2025-07-17 18:35] LABS: Troponin T High Sensitivity 16 ng/L (<=14)
[2025-07-17 18:51] VITALS: BP 165/93; PULSE 79; RESP 21; TEMP 37.1; O2SAT 98
== END 2025-07-17 19:03 | disposition home or self-care (01) ==
PROVIDERS: Emergency Provider Emergency Medicine; PCP Family Medicine; Visit Provider Emergency Medicine
DX: U07.1 COVID-19 (principal); R53.1 Weakness
CPT/HCPCS: 71045; 80048; 84484; 85025; 93005; 96361; 96374; 99283; A4216; J2405